=== PATIENT | female | born 1965 | race Caucasian/White ===

== ENCOUNTER → 2017-12-26 07:32 | Outpatient (CLI) | payer OTHER, SELFPAY ==
[2017-12-26 09:19] LABS: Add Manual Diff / Slide Review NO; Basophils Percent Auto 0.7 % (0-2); Eosinophils Percent Auto 2.2 % (2-4); Hematocrit 35.6 % (36-46); Hemoglobin 12.1 g/dL (12.0-16.0); Lymphocytes Percent Auto 31.3 % (25-40); Mean Corpuscular HGB Conc 33.8 % (30-36); Mean Corpuscular Hemoglobin 28.7 PG (26-34); Mean Corpuscular Volume 84.8 fL (80-100); Monocytes Percent Auto 7.3 % (3-14); Neutrophils Absolute Auto 2300 /uL (3000-5900); Neutrophils Percent Auto 58.5 % (50-75); Platelet Count 225 X10^3/uL (150-400); Red Cell Distribution Width 14.1 % (11.6-14.8); White Blood Cell Count 3.9 X10^3/uL (4.5-11.0)
[2017-12-26 09:31] LABS: Hemoglobin A1C% w Est Avg Glu 5.5 % (4.0-6.0)
[2017-12-26 09:35] LABS: Alanine Aminotransferase 74 IU/L (9-52); Albumin 4.5 g/dL (3.5-5.0); Albumin Globulin Ratio 1.4 (1.0-2.8); Alkaline Phosphatase 123 U/L (38-126); Aspartate Aminotransferase 77 IU/L (14-36); BUN Creatinine Ratio 23.3 (6-22); Bilirubin Total 0.6 mg/dL (0.2-1.3); Blood Urea Nitrogen 21 mg/dL (7-17); Calcium 9.7 mg/dL (8.4-10.2); Carbon Dioxide 26 mmol/L (22-32); Chloride 100 mmol/L (98-107); Cholesterol 268 mg/dL (140-199); Estimated Glomerular Filt Rate > 60.0 mL/min (>60); Globulin 3.3 g/dL (1.7-4.1); Glucose 97 mg/dL (70-100); HDL Cholesterol 62 mg/dL (40-60); HEMOLYSIS < 15 (0-50); LDL Cholesterol Calculated 147 mg/dL (<100); Potassium 3.9 mmol/L (3.4-5.1); Sodium 141 mmol/L (137-145); Total Protein 7.8 g/dL (6.3-8.2); Triglycerides 294 mg/dL (35-150)
[2017-12-26 09:41] LABS: Creatinine Urine Random 152.4 mg/dL
[2017-12-26 09:43] LABS: Microalbumi Creatinin Ratio Ur 7.2 ug/mg CR (<30); Microalbumin Urine Random 1.1 mg/dL (0-1.6)
== END ==
PROVIDERS: Family Provider Internal Medicine; PCP Internal Medicine; Visit Provider Internal Medicine
DX: E11.9 Type 2 diabetes mellitus without complications (principal); I10 Essential (primary) hypertension; F32.9 Major depressive disorder, single episode, unspecified; E78.00 Pure hypercholesterolemia, unspecified
CPT/HCPCS: 36415; 80053; 80061; 82043; 82570; 83036; 85025

== ENCOUNTER → 2018-01-13 07:06 | Outpatient (CLI) | payer OTHER, SELFPAY ==
--- NOTE | 2018-01-13 | DI.US.S_ITS ---
PROCEDURE: US ABDOMEN COMPLETE INDICATIONS: ELEVATED TRANSAMINASE, LDH TECHNIQUE: Real-time scanning was performed of the abdominal and retroperitoneal organs, with image documentation. COMPARISON: None. FINDINGS: Liver: Liver is normal in size and homogeneous in echotexture. Gallbladder: Surgically absent. Biliary ducts: Intrahepatic bile ducts are non-dilated. Extrahepatic bile duct caliber measures 7.6 mm. Normal is 6-7 mm or less in diameter, or 10 mm or less post-cholecystectomy. Pancreas: Not well-visualized. Spleen: Spleen is enlarged in size at 14.9 cm and homogeneous in echotexture. Kidneys: Kidneys are normal in size and echotexture. Right kidney measures 12.4 cm long; left kidney measures 12.7 cm long. No hydronephrosis or nephrolithiasis. No solid masses. Aorta: Visualized aorta is normal in caliber at less than 3 cm. Iliacs: Proximal common iliac arteries are normal in caliber at less than 2.5 cm. IVC: Intrahepatic inferior vena cava is patent. Miscellaneous: No free abdominal fluid. IMPRESSION: Sonographic splenomegaly. Dictated by: Lars HALL Interpreted: Adams Apple MD on 01/13/2018 at 8:07 Approved by: Rudy Apple M.D. on 01/13/2018 at 10:48
== END ==
PROVIDERS: Family Provider Internal Medicine; PCP Internal Medicine; Visit Provider Internal Medicine
DX: R74.0 Nonspecific elevation of levels of transaminase and lactic acid dehydrogenase [LDH] (principal); R16.1 Splenomegaly, not elsewhere classified
CPT/HCPCS: 76700

== ENCOUNTER → 2018-03-17 13:11 | Outpatient (CLI) | payer OTHER, SELFPAY ==
--- NOTE | 2018-03-17 | DI.US.S_ITS ---
PROCEDURE: US ABDOMEN COMPLETE INDICATIONS: ELEVATED LDH, TRANSAMINASE TECHNIQUE: Real-time scanning was performed of the abdominal and retroperitoneal organs, with image documentation. COMPARISON: [facility], US, US ABDOMEN COMPLETE, 01/13/2018, 7:30. FINDINGS: Liver: Liver is normal in size and homogeneous in echotexture. There are 3, geographic areas of increased echogenicity noted throughout the right hepatic lobe, largest measuring 5.7 x 6.3 x 4.2 cm which may represent focal fatty infiltration given the sonographic appearance. Liver otherwise appears normal. Gallbladder: Surgically absent. Biliary ducts: Intrahepatic bile ducts are non-dilated. Extrahepatic bile duct caliber measures 5.4 mm. Normal is 6-7 mm or less in diameter, or 10 mm or less post-cholecystectomy. Pancreas: Not well-seen. Spleen: Spleen is normal in size and homogeneous in echotexture. Kidneys: Kidneys are normal in size and echotexture. Right kidney measures 12.0 cm long; left kidney measures 12.0 cm long. No hydronephrosis or nephrolithiasis. No solid masses. Aorta: Visualized aorta is normal in caliber at less than 3 cm. Iliacs: Proximal common iliac arteries are normal in caliber at less than 2.5 cm. IVC: Intrahepatic inferior vena cava is patent. Miscellaneous: No free abdominal fluid. IMPRESSION: 3 areas of geographic areas of increased echogenicity noted throughout the right hepatic lobe with appearance suggesting focal fatty infiltration. Recommend either CT or MR hepatic protocol imaging for further characterization and confirmation. Dictated by: Lars TERRELL Interpreted: Adams Apple MD on 03/17/2018 at 15:17 Approved by: Rudy Apple M.D. on 03/17/2018 at 16:56
== END ==
PROVIDERS: Family Provider Internal Medicine; PCP Internal Medicine; Visit Provider Internal Medicine
DX: R74.0 Nonspecific elevation of levels of transaminase and lactic acid dehydrogenase [LDH] (principal)
CPT/HCPCS: 76700

== ENCOUNTER → 2018-04-18 09:49 | Outpatient (CLI) | payer OTHER, SELFPAY ==
[2018-04-18 11:21] LABS: Add Manual Diff / Slide Review NO; Basophils Percent Auto 0.5 % (0-2); Eosinophils Percent Auto 2.1 % (2-4); Hematocrit 36.4 % (36-46); Hemoglobin 12.4 g/dL (12.0-16.0); Lymphocytes Percent Auto 26.5 % (25-40); Mean Corpuscular HGB Conc 34.2 % (30-36); Mean Corpuscular Hemoglobin 28.3 PG (26-34); Mean Corpuscular Volume 82.9 fL (80-100); Neutrophils Absolute Auto 2900 /uL (3000-5900); Neutrophils Percent Auto 63.9 % (50-75); Platelet Count 231 X10^3/uL (150-400); Red Blood Cell Count 4.39 X10^6/uL (4.0-5.2); Red Cell Distribution Width 14.6 % (11.6-14.8); White Blood Cell Count 4.5 X10^3/uL (4.5-11.0)
[2018-04-18 11:32] LABS: Alanine Aminotransferase 72 IU/L (9-52); Albumin 4.5 g/dL (3.5-5.0); Albumin Globulin Ratio 1.3 (1.0-2.8); Alkaline Phosphatase 132 U/L (38-126); Aspartate Aminotransferase 90 IU/L (14-36); BUN Creatinine Ratio 25.6 (6-22); Bilirubin Total 0.8 mg/dL (0.2-1.3); Blood Urea Nitrogen 23 mg/dL (7-17); Calcium 9.6 mg/dL (8.4-10.2); Carbon Dioxide 28 mmol/L (22-32); Chloride 102 mmol/L (98-107); Cholesterol 271 mg/dL (140-199); Estimated Glomerular Filt Rate > 60.0 mL/min (>60); Globulin 3.5 g/dL (1.7-4.1); Glucose 168 mg/dL (70-100); HDL Cholesterol 58 mg/dL (40-60); HEMOLYSIS < 15 (0-50); LDL Cholesterol Calculated 149 mg/dL (<100); Potassium 4.3 mmol/L (3.4-5.1); Sodium 143 mmol/L (137-145); Triglycerides 321 mg/dL (35-150)
[2018-04-18 11:39] LABS: Hemoglobin A1C% w Est Avg Glu 6.7 % (4.0-6.0)
[2018-04-18 12:13] LABS: Vitamin B12 740 pg/mL (239-931)
[2018-04-18 12:25] LABS: Thyroid Stimulating Hormone 1.42 uIU/mL (0.47-4.68)
[2018-04-18 12:39] LABS: Hep C Virus Ab w/Reflex Quant NEGATIVE s/c (NEGATIVE)
== END ==
PROVIDERS: PCP Internal Medicine; Visit Provider Internal Medicine
DX: E11.9 Type 2 diabetes mellitus without complications (principal); K76.0 Fatty (change of) liver, not elsewhere classified; E78.00 Pure hypercholesterolemia, unspecified
CPT/HCPCS: 36415; 80053; 80061; 82607; 83036; 84443; 85025; 86803

== ENCOUNTER → 2018-04-28 07:09 | Outpatient (CLI) | payer OTHER, SELFPAY ==
[2018-04-28 09:06] LABS: Add Manual Diff / Slide Review NO; Basophils Percent Auto 0.5 % (0-2); Eosinophils Percent Auto 1.5 % (2-4); Hematocrit 36.7 % (36-46); Hemoglobin 12.4 g/dL (12.0-16.0); Lymphocytes Percent Auto 28.6 % (25-40); Mean Corpuscular HGB Conc 33.8 % (30-36); Mean Corpuscular Hemoglobin 28.3 PG (26-34); Mean Corpuscular Volume 83.8 fL (80-100); Monocytes Percent Auto 6.3 % (3-14); Neutrophils Absolute Auto 2900 /uL (3000-5900); Neutrophils Percent Auto 63.1 % (50-75); Platelet Count 245 X10^3/uL (150-400); Red Blood Cell Count 4.37 X10^6/uL (4.0-5.2); Red Cell Distribution Width 14.2 % (11.6-14.8); White Blood Cell Count 4.6 X10^3/uL (4.5-11.0)
[2018-04-28 09:19] LABS: Hemoglobin A1C% w Est Avg Glu 6.6 % (4.0-6.0)
[2018-04-28 09:44] LABS: Alanine Aminotransferase 50 IU/L (9-52); Albumin 4.7 g/dL (3.5-5.0); Albumin Globulin Ratio 1.5 (1.0-2.8); Alkaline Phosphatase 135 U/L (38-126); Aspartate Aminotransferase 50 IU/L (14-36); BUN Creatinine Ratio 31.8 (6-22); Bilirubin Total 0.6 mg/dL (0.2-1.3); Blood Urea Nitrogen 35 mg/dL (7-17); Calcium 9.9 mg/dL (8.4-10.2); Carbon Dioxide 27 mmol/L (22-32); Chloride 100 mmol/L (98-107); Cholesterol 266 mg/dL (140-199); Estimated Glomerular Filt Rate 51.8 mL/min (>60); Globulin 3.1 g/dL (1.7-4.1); Glucose 117 mg/dL (70-100); HDL Cholesterol 53 mg/dL (40-60); HEMOLYSIS < 15 (0-50); LDL Cholesterol Calculated 146 mg/dL (<100); Sodium 142 mmol/L (137-145); Total Protein 7.8 g/dL (6.3-8.2); Triglycerides 337 mg/dL (35-150)
[2018-04-28 10:07] LABS: Thyroid Stimulating Hormone 2.65 uIU/mL (0.47-4.68)
[2018-04-28 10:19] LABS: Hep C Virus Ab w/Reflex Quant NEGATIVE s/c (NEGATIVE)
[2018-04-28 12:04] LABS: Vitamin B12 584 pg/mL (239-931)
== END ==
PROVIDERS: Family Provider Internal Medicine; PCP Internal Medicine; Visit Provider Internal Medicine
DX: E11.9 Type 2 diabetes mellitus without complications (principal); K76.0 Fatty (change of) liver, not elsewhere classified
CPT/HCPCS: 36415; 80053; 80061; 82607; 83036; 84443; 85025; 86803

== ENCOUNTER → 2018-08-14 17:10 | Outpatient (REF) | payer OTHER, SELFPAY ==
[2018-08-15 09:40] LABS: Urine Amphetamines Negative (Negative); Urine Barbiturates Negative (Negative); Urine Benzodiazepines Positive (Negative); Urine Cocaine Negative (Negative); Urine MDMA Negative (Negative); Urine Methadone Negative (Negative); Urine Methamphetamines Negative (Negative); Urine Morphine/Opi cutoff 2000 Negative (Negative); Urine Oxycodone Negative (Negative); Urine Phencyclidine Negative (Negative); Urine Tetrahydrocannabinol Negative (Negative); Urine Tricyclic Antidepressant Positive (Negative)
== END ==
LOC: LAB 17:10
PROVIDERS: Family Provider Internal Medicine; PCP Internal Medicine; Visit Provider Family Medicine Sleep Medicine
DX: G47.33 Obstructive sleep apnea (adult) (pediatric) (principal); G47.19 Other hypersomnia
CPT/HCPCS: 80305

== ENCOUNTER → 2018-10-23 18:04 | Outpatient (CLI) | payer OTHER, SELFPAY ==
--- NOTE | 2018-10-23 18:10 | DI.MRI.S_ITS ---
PROCEDURE: MR LUMBAR SPINE WO CON INDICATIONS: Post laminectomy syndrome TECHNIQUE: Noncontrast sagittal T1 spin echo and T2 fast echo, sagittal STIR, axial T1 and T2 fast spin echo through the lumbar spine. In cases with scoliosis, additional coronal T2 fast spin echo may be performed. COMPARISON: [facility] [place], [place], XR LUMBAR SPINE 2 OR 3 VIEWS, 09/18/2018, 16:04. FINDINGS: Image quality: Excellent. Alignment and Curvature: There is grade 1 retrolisthesis of L1 on L2 and L2 on L3. Minimal retrolisthesis of L4 on L5 is also noted. There is mild to moderate levoscoliosis centered at L2-3 level. Bone Marrow: Marrow is of normal overall signal. No acute vertebral body compression fractures. Decreased intervertebral disc space, degenerative endplate changes and desiccation signals are noted throughout lumbar spine. There is suggestion of prior L3-4 laminectomy. Spinal Cord: Conus medullaris terminates at the T12-L1 level. Visualized cord demonstrates normal signal and size. Paraspinous Soft Tissues: No paravertebral masses. Postsurgical changes in lower back soft tissue are seen. L1-L2: Diffuse disc bulge, decreased intervertebral disc space and bilateral facet arthrosis is seen. No significant central canal stenosis. Bilateral neural foramina narrowing is noted worse on the right side. Bulging disc likely contacting exiting right L1 nerve root. L2-L3: There is near-complete loss of intervertebral disc space. Broad based, more left-sided disc herniation and bilateral facet arthrosis is seen causing mild central canal stenosis and mild to moderate bilateral neuroforamina narrowing. L3-L4: Broad-based disc bulge and superimposed central disc herniation and bilateral facet arthrosis is seen. Near-complete loss of intervertebral disc space is also noted. There is prior laminectomy at this level. No central canal stenosis. Left worse than right bilateral neuroforamina narrowing is seen. L4-L5: Broad-based disc bulge and bilateral facet arthrosis is seen causing moderate central canal stenosis and right worse than left bilateral neuroforaminal narrowing. Bulging disc likely contacting right L4 nerve root. L5-S1: Broad-based disc bulge and bilateral facet arthrosis is seen with mild central canal stenosis and left worse than right bilateral neuroforaminal narrowing. Bulging disc likely contacting bilateral exiting L5 nerve roots. IMPRESSION: 1. Prior posterior decompression laminectomy at L3-4 level with postsurgical changes. No marrow edema. No compression fracture. Likely degenerative spondylolisthesis at L1-2, L2-3 and L4-5 levels as above. 2. Broad based disc bulge and bilateral facet arthrosis throughout lumbar spine causing [id number] central canal stenosis and bilateral neuroforaminal narrowing most prominent at L4-5 level as described above. 3. No gross paraspinous soft tissue abnormality. Dictated by: Santy Wallace M.D. on 10/24/2018 at 11:01 Approved by: Santy Wallace M.D. on 10/24/2018 at 11:17
== END ==
PROVIDERS: Family Provider Internal Medicine; PCP Internal Medicine; Visit Provider Physical Medicine & Rehabilitation
DX: M96.1 Postlaminectomy syndrome, not elsewhere classified (principal); M51.26 Other intervertebral disc displacement, lumbar region; M51.27 Other intervertebral disc displacement, lumbosacral region; M47.816 Spondylosis without myelopathy or radiculopathy, lumbar region; M47.817 Spondylosis without myelopathy or radiculopathy, lumbosacral region; M48.061 Spinal stenosis, lumbar region without neurogenic claudication; M48.07 Spinal stenosis, lumbosacral region; E11.9 Type 2 diabetes mellitus without complications; G89.4 Chronic pain syndrome; Z79.4 Long term (current) use of insulin
CPT/HCPCS: 72148

== ENCOUNTER → 2018-11-28 16:26 | Outpatient (CLI) | payer OTHER, SELFPAY ==
--- NOTE | 2018-11-28 16:30 | DI.RAD.S_ITS ---
PROCEDURE: XR RIBS RT MIN 3V W CXR 1V INDICATIONS: right sided rib pain TECHNIQUE: 2 views of the right ribs were acquired, along with a single view chest. COMPARISON: None. FINDINGS: Surgical changes and devices: None. Bones and chest wall: No fractures or dislocations. No suspicious bony lesions. Moderate caudal joint space loss in the right glenohumeral joint. Overlying soft tissues appear unremarkable. Lungs and pleura: No pleural effusions or pneumothorax. Lungs appear clear. Mediastinum: Mediastinal contours appear normal. Heart size is normal. IMPRESSION: 1. No displaced rib fractures. 2. No radiographic evidence of underlying chest trauma. 3. Moderate degenerative change in the right glenohumeral joint. Dictated by: Shanthi Ernst M.D. on 11/28/2018 at 17:06 Approved by: Shanthi Ernst M.D. on 11/28/2018 at 17:07
== END ==
PROVIDERS: Family Provider Internal Medicine; PCP Internal Medicine; Visit Provider Physician Assistant
DX: R07.81 Pleurodynia (principal); M19.011 Primary osteoarthritis, right shoulder
CPT/HCPCS: 71101

== ENCOUNTER → 2018-12-05 11:50 | Outpatient (ROUT) | payer OTHER, SELFPAY ==
[2018-12-05 12:08] LABS: Urine Tricyclic Antidepressant Positive (Negative)
[2018-12-05 12:09] LABS: Urine Amphetamines Negative (Negative); Urine Barbiturates Negative (Negative); Urine Benzodiazepines Positive (Negative); Urine Cocaine Negative (Negative); Urine MDMA Negative (Negative); Urine Methadone Negative (Negative); Urine Methamphetamines Negative (Negative); Urine Morphine/Opi cutoff 2000 Negative (Negative); Urine Oxycodone Negative (Negative); Urine Phencyclidine Negative (Negative); Urine Tetrahydrocannabinol Positive (Negative)
== END ==
PROVIDERS: Family Provider Internal Medicine; PCP Internal Medicine; Visit Provider Family Medicine Sleep Medicine
DX: G47.10 Hypersomnia, unspecified (principal); G47.33 Obstructive sleep apnea (adult) (pediatric)
CPT/HCPCS: 80305

== ENCOUNTER → 2018-12-24 08:15 | Outpatient (CLI) | payer OTHER, SELFPAY ==
[2018-12-24 09:09] LABS: Add Manual Diff / Slide Review NO; Basophils Absolute Auto 0 /uL (0-100); Basophils Percent Auto 0.4 % (0-2); Eosinophils Absolute Auto 100 /uL (0-450); Eosinophils Percent Auto 1.7 % (2-4); Hemoglobin 12.3 g/dL (12.0-16.0); Lymphocytes Absolute Auto 1300 /uL (1100-4500); Lymphocytes Percent Auto 28.1 % (25-40); Mean Corpuscular HGB Conc 33.2 % (30-36); Mean Corpuscular Hemoglobin 27.4 PG (26-34); Mean Corpuscular Volume 82.5 fL (80-100); Monocytes Absolute Auto 300 /uL (0-900); Monocytes Percent Auto 7.3 % (3-14); Neutrophils Absolute Auto 2900 /uL (1500-7000); Neutrophils Percent Auto 62.5 % (50-75); Platelet Count 208 X10^3/uL (150-400); Red Blood Cell Count 4.49 X10^6/uL (4.0-5.2); Red Cell Distribution Width 15.1 % (11.6-14.8); White Blood Cell Count 4.6 X10^3/uL (4.5-11.0)
[2018-12-24 09:24] LABS: Hemoglobin A1C% w Est Avg Glu 6.2 % (4.0-6.0)
[2018-12-24 09:58] LABS: Alanine Aminotransferase 120 IU/L (9-52); Albumin 4.6 g/dL (3.5-5.0); Albumin Globulin Ratio 1.4 (1.0-2.8); Alkaline Phosphatase 164 U/L (38-126); Aspartate Aminotransferase 139 IU/L (14-36); BUN Creatinine Ratio 17.5 (6-22); Bilirubin Total 0.6 mg/dL (0.2-1.3); Blood Urea Nitrogen 28 mg/dL (7-17); Calcium 10.1 mg/dL (8.4-10.2); Carbon Dioxide 28 mmol/L (22-32); Chloride 101 mmol/L (98-107); Estimated Glomerular Filt Rate 33.5 mL/min (>60); Globulin 3.2 g/dL (1.7-4.1); Glucose 104 mg/dL (70-100); HEMOLYSIS < 15 (0-50); Potassium 4.5 mmol/L (3.4-5.1); Sodium 140 mmol/L (137-145); Total Protein 7.8 g/dL (6.3-8.2)
== END ==
PROVIDERS: PCP Internal Medicine; Visit Provider Internal Medicine
DX: E11.9 Type 2 diabetes mellitus without complications (principal); K76.0 Fatty (change of) liver, not elsewhere classified; I10 Essential (primary) hypertension
CPT/HCPCS: 36415; 80053; 83036; 85025

== ENCOUNTER → 2019-01-23 14:42 | Outpatient (CLI) | payer OTHER, SELFPAY ==
[2019-01-23 16:10] LABS: BUN Creatinine Ratio 18.2 (6-22); Blood Urea Nitrogen 20 mg/dL (7-17); Calcium 10.6 mg/dL (8.4-10.2); Carbon Dioxide 29 mmol/L (22-32); Chloride 100 mmol/L (98-107); Creatinine Urine Random 83.4 mg/dL; Estimated Glomerular Filt Rate 51.6 mL/min (>60); Glucose 85 mg/dL (70-100); HEMOLYSIS < 15 (0-50); Potassium 5.5 mmol/L (3.4-5.1); Sodium 141 mmol/L (137-145)
[2019-01-23 16:14] LABS: Microalbumi Creatinin Ratio Ur 41.9 ug/mg CR (<30); Microalbumin Urine Random 3.5 mg/dL (0-1.6)
== END ==
PROVIDERS: PCP Internal Medicine; Visit Provider Internal Medicine
DX: N18.9 Chronic kidney disease, unspecified (principal)
CPT/HCPCS: 36415; 80048; 82043; 82570

== ENCOUNTER → 2019-01-26 18:16 | Outpatient (CLI) | payer OTHER, SELFPAY ==
--- NOTE | 2019-01-26 18:19 | DI.RAD.S_ITS ---
PROCEDURE: XR SHOULDER RT MIN 2V INDICATIONS: Fall, pain with movement of shoulder TECHNIQUE: 3 views of the shoulder were acquired. COMPARISON: None. FINDINGS: Bones: Slight cortical offset appearance of the humeral head. No suspicious bony lesions. Visualized ribs appear intact. Soft tissues: No suspicious soft tissue calcifications. IMPRESSION: Slight cortical offset appearance of the right humeral head appearing consistent with fracture. Dictated by: Christina Kaye M.D. on 01/26/2019 at 18:48 Approved by: Christina Kaye M.D. on 01/26/2019 at 18:51
== END ==
PROVIDERS: PCP Internal Medicine; Visit Provider Physician Assistant
DX: M25.511 Pain in right shoulder (principal)
CPT/HCPCS: 73030

== ENCOUNTER → 2019-03-30 11:04 | Outpatient (CLI) | payer OTHER, SELFPAY ==
[2019-03-30 12:23] LABS: Alanine Aminotransferase 59 IU/L (9-52); Albumin 4.4 g/dL (3.5-5.0); Albumin Globulin Ratio 1.5 (1.0-2.8); Alkaline Phosphatase 116 U/L (38-126); Aspartate Aminotransferase 87 IU/L (14-36); BUN Creatinine Ratio 22.2 (6-22); Bilirubin Total 0.6 mg/dL (0.2-1.3); Blood Urea Nitrogen 20 mg/dL (7-17); Calcium 9.9 mg/dL (8.4-10.2); Carbon Dioxide 28 mmol/L (22-32); Chloride 102 mmol/L (98-107); Estimated Glomerular Filt Rate > 60.0 mL/min (>60); Glucose 177 mg/dL (70-100); HEMOLYSIS < 15 (0-50); Potassium 4.4 mmol/L (3.4-5.1); Sodium 140 mmol/L (137-145); Total Protein 7.4 g/dL (6.3-8.2)
== END ==
PROVIDERS: PCP Internal Medicine; Visit Provider Internal Medicine
DX: I10 Essential (primary) hypertension (principal); E87.5 Hyperkalemia; N18.9 Chronic kidney disease, unspecified; K76.0 Fatty (change of) liver, not elsewhere classified
CPT/HCPCS: 36415; 80053

== ENCOUNTER 2019-03-31 11:15 | Outpatient (RCR) | payer OTHER, SELFPAY ==
--- NOTE | 2019-02-10 17:00 | PT.OPPOC ---
Current Diagnoses Pain in right elbow (02/10/19) Muscle weakness (generalized) (02/10/19) Other nondisplaced fracture of upper end of right humerus, initial encounter for closed fracture (02/10/19) Provider Visit Care Team Role Provider Type Neftaly Tomlinson MD Primary Care Provider Physician Specialty: Internal Medicine Address: [address] [place] [address], [id number] Email: Juan Daniel Velazquez MD Attending Provider Physician Specialty: Orthopedic Surgery Address: [address] [place] [address], [id number] Email: [email or web address] Plan Of Care PT-OP-T Assessment and Plan Start: 02/10/19 08:18 Freq: Status: Active Protocol: Document 02/10/19 09:52 LRN (Rec: 02/10/19 12:45 LRN [id number]) Physical Therapy Assessment Rehab Potential Rehabilitation Potential Excellent Evaluation Complexity Number of Personal Factors/Comorbidities 3 or More Number of Body Systems Impaired 4 or More Clinical Presentation at Evaluation Unstable Impairments Impairments Activity Tolerance Edema Functional Activities Pain Soft Tissue Mobility Strength Goals Three Impairment Decreased R shoulder strength & functional ability Short Term Goal (STG) Improve R shoulder strength to 3/5 with ability to dress self with minimal difficulty and pain. STG Duration 03/31/19 [employer] Goal (LTG) Improve R shoulder strength to 4+/5 with pt able to return to pool exercise class. LTG Duration 04/14/19 Two Impairment Decreased R shoulder AROM/PROM Short Term Goal (STG) Per protocol: PROM to R shoulder with progression and tolerance to AROM on week 5. STG Duration 03/03/19 [facility] Goal (LTG) Pt will demonstrate full R shoulder AROM/PROM with ability lightly brush her hair and no difficulty feed self. LTG Duration 03/31/19 One Impairment Lacks independent self care program [facility] Goal (LTG) Pt will be independent with a self care HEP. LTG Duration 04/14/19 Assessment Summary Assessment Pt presents to therapy with no sling on her R arm that she apparently has not been wearing. She has been going to the pool daily and demonstrated the AROM program she was doing on her own in the local swimming pool, moving her arms in and out in a breast stroke type of pattern. Her R shoulder PROM is fairly good (painfree) and surprisingly good for painfree AROM. The pt doesn't appear to be following the protocol provided by her physician. She has been moving her R arm (in ER and AB) in the water with her arms dangling down because she states it isn't painful. Pt was instructed in the protocol and is expected to follow the timeline more closely, although I suspect she will have to be monitored closely since she is having very little pain. The pt is choosing to participate in mostly aquatic therapy, but will be seen in the clinic for follow rechecks on her progress towards FROM and return of strength to prior function. The pt will benefit from skilled physical therapy to progress her R shoulder ROM and strength towards return to prior level of function with very little pain. Physical Therapy Plan Frequency and Duration Frequency of Treatment 2x/Week Plan of Care Start Date 02/10/19 Plan of Care End Date 04/14/19 Therapeutic Interventions Therapeutic Interventions Home Exercise Program Joint Mobilizations Manual Therapy Patient/Caregiver Education Self-Care/Home Management Soft Tissue Mobilization Taping Therapeutic Exercises Modalities Cold Pack/Ice Massage Electric Stimulation Hot Packs Infrared Therapy Ultrasound Next Visit Focus/Plan Next Note Type Treatment Note Next Visit Plan Continue per protocol for Acute Unstable Shoulder Fracture Nonoperative rehabilitation program. Start Aquatic therapy with land based therapy every other weeks as able. Pt R shoulder to be assessed for FROM on land and progressed to strengthening when appropriate per protocol. Obtain copy of X-ray report from . Plan of Care Dates Plan of Care Start Date 02/10/19 Plan of Care End Date 04/14/19 Please Sign and Return: I have reviewed this Plan of Care and certify that the skilled therapy services above are required to meet the patient?s needs. Physician Signature Date Printed Name and Credentials Clinical Instructor Signature Printed Name and Credentials
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
== END 2019-06-05 11:14 ==
LOC: PHYS 11:15
PROVIDERS: PCP Internal Medicine; Visit Provider Orthopaedic Surgery
DX: S42.294A Other nondisplaced fracture of upper end of right humerus, initial encounter for closed fracture (principal); M62.81 Muscle weakness (generalized); M25.521 Pain in right elbow
CPT/HCPCS: 97010; 97110; 97113; 97140; 97163

== ENCOUNTER → 2019-04-14 09:15 | Outpatient (CLI) | payer OTHER, SELFPAY ==
[2019-04-14 09:50] LABS: Urine Amphetamines Negative (Negative); Urine Barbiturates Negative (Negative); Urine Benzodiazepines Positive (Negative); Urine Cocaine Negative (Negative); Urine MDMA Negative (Negative); Urine Methadone Negative (Negative); Urine Methamphetamines Negative (Negative); Urine Morphine/Opi cutoff 2000 Negative (Negative); Urine Oxycodone Negative (Negative); Urine Phencyclidine Negative (Negative); Urine Tetrahydrocannabinol Positive (Negative); Urine Tricyclic Antidepressant Positive (Negative)
== END ==
PROVIDERS: Family Provider Internal Medicine; PCP Internal Medicine; Visit Provider Psychiatry & Neurology Psychiatry
DX: Z79.899 Other long term (current) drug therapy (principal)
CPT/HCPCS: 80305; 80307

== ENCOUNTER 2019-04-17 01:59 | Observation (INO) | payer OTHER, SELFPAY ==
[2019-04-17] VITALS (17 sets, daily range): BP systolic 76–180; BP diastolic 54–102; PULSE 64–80; RESP 15–21; TEMP 35.7–37.4; O2SAT 95–100; BMI 30.8
--- NOTE | 2019-04-17 02:23 | ED.HA ---
HPI - Headache General Chief Complaint: Headache Stated Complaint: Burning pain on face/ear/neck Time Seen by Provider: 04/17/19 02:00 Mode of arrival: Family Vehicle Limitations: language barrier History of Present Illness HPI Narrative: 53-year-old female nonsmoker with occasional THC and alcohol use and history of diabetes and hypertension presents with her in the chief complaint of 1 hour of intense burning on the right side of her face from her ear to the ramus of her jaw. It is worse when you press. She denies any redness or warmth. She has had no fever or chills. She went to bed feeling fine and awoke with this pain, stating she recently had dental work in the past week to repair crowns. states she was briefly difficult to arouse and seemed like she might have been a bit sweaty, she then got herself into bed and awoke this pain. She states she felt totally fine and normal prior to going to bed. She denies any change in diet or medications. She has no rash. She did have chickenpox as a child. SHe used a Q tip on her R ear after the pain started. She is very clear this is not a headache but is in fact right-sided face pain. She denies other neurologic symptoms such as numbness, weakness or tingling. She denies any shortness of breath, chest pain or fatigue. She denies neurologic symptoms such as blurred vision, trouble with speech or other. Complaint: other Onset (ago): hour(s) Onset description: gradual Location: right Severity: moderate Quality: sharp Relieving factors: rest Exacerbating factors: other (palpation) Context: occurred at rest Associated symptoms: diaphoresis Treatments prior to arrival: acetaminophen Related Data Home Medications Medication Instructions Recorded Confirmed [KETAMINE] 100 mg PO #0 09/19/17 12/24/18 buprenorphine HCl 8 mg SUBLINGUAL TID #0 09/19/17 12/24/18 cholecalciferol (vitamin D3) 2,000 unit PO QDAY #0 09/19/17 12/24/18 [Vitamin D3] dicyclomine 20 mg PO QIDP PRN #0 09/19/17 12/24/18 fenofibrate 160 mg PO QDAY #0 09/19/17 12/24/18 insulin aspart U-100 [Novolog 10 - 25 unit SQ TIDAC #0 09/19/17 12/24/18 U-100 Insulin aspart] insulin glargine [Lantus U-100 30 unit SQ QPM #0 09/19/17 12/24/18 Insulin] insulin glargine [Lantus U-100 40 unit SQ QDAY #0 09/19/17 12/24/18 Insulin] lisinopril 10 mg PO QDAY #0 09/19/17 12/24/18 lorazepam 2 mg PO #0 09/19/17 12/24/18 metformin [Glucophage XR] 1,000 mg PO BID #0 09/19/17 12/24/18 metoclopramide HCl [Reglan] 5 - 10 mg PO PRN PRN #0 09/19/17 12/24/18 metoprolol succinate [Toprol XL] 100 mg PO QDAY #0 09/19/17 12/24/18 pravastatin 20 mg PO QDAY #0 09/19/17 12/24/18 quetiapine [Seroquel] 100 mg PO PRN #0 09/19/17 12/24/18 quetiapine [Seroquel] 800 mg PO HS #0 09/19/17 12/24/18 valacyclovir QID #0 09/19/17 12/24/18 vitamin B complex [B 1 tab PO QDAY #0 09/19/17 12/24/18 Complex-Vitamin B12] fluoxetine 20 mg capsule 20 mg PO DAILY 10/10/18 12/24/18 Previous Rx's Medication Instructions Recorded celecoxib 200 mg capsule 200 mg PO DAILY #30 cap 10/10/18 methylphenidate HCl 10 mg tablet 10 mg PO BID #60 tab 12/24/18 Allergies Allergy/AdvReac Type Severity Reaction Status Date / Time cat dander Allergy Hives Verified 12/24/18 14:40 house dust Allergy Itchy Verified 12/24/18 14:40 throat No Known Allergies Allergy Uncoded 12/24/18 14:40 Review of Systems Constitutional Constitutional: Denies chills, Reports excessive sweating, Denies fatigue, Denies fever(s), Denies frequent falls, Denies lethargy and Denies weakness Eyes Eyes: Denies change in vision, Denies eye discharge, Denies irritation and Denies loss of vision ENT Ears, Nose, Mouth, and Throat: Denies change in voice, Denies dizziness, Denies neck pain, Denies sore throat and Denies throat swelling Cardiovascular Cardiovascular: Denies chest pain, Denies irregular heart rhythm, Denies lightheadedness, Denies palpitations, Denies dyspnea, Denies dyspnea on exertion and Denies orthopnea Respiratory Respiratory: Denies cough, Denies dyspnea, Denies dyspnea on exertion and Denies wheezing Gastrointestinal Gastrointestinal: Denies abdominal pain, Denies change in bowel habits, Denies diarrhea, Denies nausea and Denies vomiting Genitourinary Genitourinary: Denies hematuria, Denies flank pain, Denies urinary incontinence and Denies urinary urgency Musculoskeletal Musculoskeletal: Denies back pain, Denies muscle weakness, Denies neck pain, Denies numbness and Denies tingling Integumentary/Breasts Skin/Breast: Denies pruritus, Denies erythema, Denies rash and Denies wounds Neurologic Neurologic: Denies behavioral changes, Denies confusion, Denies dizziness, Denies frequent falls, Denies loss of vision, Denies numbness, Denies tingling and Denies weakness Psychiatric Psychiatric: Denies anxiety, Denies behavioral changes, Denies confusion, Denies depression, Denies homicidal ideation and Denies suicidal ideation Endocrine Endocrine: Reports excessive sweating, Denies fatigue, Denies flushing and Denies palpitations Hematologic/Lymphatic Hematologic/Lymphatic: Denies easy bruising Allergic/Immunologic Allergic/Immunologic: Denies urticaria, Denies throat swelling and Denies wheezing [facility] Medical History (Updated 04/17/19 @ 06:30 by MOY Childress) Anxiety (Chronic) Arthritis (Acute) Bipolar 1 disorder (Chronic) History of pancreatitis (Resolved) History of pulmonary embolism (Acute) Hypercholesterolemia with hypertriglyceridemia (Chronic) Hypersomnia (Chronic) Hypertension (Chronic) Major depressive disorder (Chronic) Neuropathy, diabetic (Acute) Nonalcoholic steatohepatitis (HERRING) (Chronic) Obesity (Chronic) Obstructive sleep apnea of adult (Chronic) Renal insufficiency (Acute) Snoring (Inactive) Type 2 diabetes mellitus (Chronic) Social History marital status: details: to Arnie household members: spouse lives independently: Yes caregiver/support person: No occupational status: unemployed Smoking Status: Never smoker alcohol intake: current substance use type: does not use Social History marital status: details: rasheed Gaitan household members: spouse lives independently: Yes caregiver/support person: No occupational status: unemployed Smoking Status: Never smoker alcohol intake: current substance use type: does not use Exam Narrative Exam Narrative: GENERAL: [53] year old patient appears stated age. Well-nourished, well-developed patient, in mild distress. At times a bit sluggish to respond but does so accurately HEAD: Atraumatic. Normocephalic. EYES: Pupils equal round and reactive. Extraocular motions intact. No scleral icterus. No injection or drainage. ENT: Dry mucous membranes. Right external canal has a small abrasion with minimal fresh blood, no significant swelling. Nose without bleeding, purulent drainage. Throat without erythema, tonsillar hypertrophy or exudate. Airway patent. NECK: Trachea midline. Non tender CARDIOVASCULAR: Regular rate and rhythm without murmurs, gallops, or rubs. RESPIRATORY: Clear to auscultation. Breath sounds equal bilaterally. No wheezes, rales, or rhonchi. GASTROINTESTINAL: Abdomen soft, non-tender, nondistended. EXTREMITIES: No edema or joint tenderness. BACK: Nontender without deformity or crepitance. No flank tenderness. NEURO: AOx3. SKIN: No rash or erythema of visible areas no erythema, swelling. Initial Vital Signs Initial Vital Signs: Vital Signs Temperature 98.5 F 04/17/19 02:06 Pulse Rate 80 04/17/19 02:06 Respiratory Rate 16 04/17/19 02:06 Blood Pressure 103/68 04/17/19 02:06 Pulse Oximetry 100 04/17/19 02:06 Course Orders Ordered: ED Orders 04/17/19 02:16 EKG-12 Lead Stat 04/17/19 02:22 Basic Metabolic Panel Stat C-Reactive Protein Quant Stat Complete Blood Count AUTO DIFF Stat Erythrocyte Sedimentation Rate Stat Troponin & CK Cardiac Panel Stat 04/17/19 04:31 Basic Metabolic Panel Stat Lactate (Lactic Acid) Stat Troponin I Stat Acetaminophen (Tylenol) 650 mg PO Q6HR PRN PRN Reason: As Needed for Fever/Mild Pain Dextrose (D50w) 25 gm IV PRN PRN PRN Reason: Hypoglycemia Heparin Sodium (Porcine) (Heparin) 5,000 unit SUBCUT BID YARI Sodium Chloride (Normal Saline 0.9%) 1,000 mls @ 125 mls/hr IV CONT YARI Ondansetron HCl (Zofran) 4 mg IV Q8HR PRN PRN Reason: Nausea And Vomiting Discontinued Medications Sodium Chloride (Normal Saline 0.9%) 1,000 mls @ 1,000 mls/hr IV BOLUS ONE Stop: 04/17/19 04:24 Last Infusion: 04/17/19 04:40 Dose: 0 mls/hr Documented by: Admin: 04/17/19 03:38 Dose: 1,000 mls/hr Documented by: LUCAS Sodium Chloride (Normal Saline 0.9%) 1,000 mls @ 1,000 mls/hr IV BOLUS ONE Stop: 04/17/19 05:38 Last Infusion: 04/17/19 05:41 Dose: 0 mls/hr Documented by: Admin: 04/17/19 04:40 Dose: 1,000 mls/hr Documented by: LESLIE Insulin Glargine (Lantus Solostar (Pen)) 40 unit SUBCUT 0800 [facility] Ketorolac Tromethamine (Toradol) 15 mg IV NOW ONE Stop: 04/17/19 03:26 Last Admin: 04/17/19 03:39 Dose: 15 mg Documented by: LUCAS Reevaluation(s) Reevaluation #1: Patient found to have a bump in creatinine of 1.6, urine specific gravity is 10 30 and blood pressure in the mid 80s with orthostatics. IV fluids and Toradol ordered Vital Signs Vital signs: Vital Signs - 8 hr 04/17/19 02:06 04/17/19 03:16 04/17/19 04:05 Temperature 98.5 F Pulse Rate 80 Pulse Rate [Orthostatic Lying] 67 Pulse Rate [Orthostatic Sitting] 71 Pulse Rate [Orthostatic Standing] 77 Respiratory Rate 16 Blood Pressure 103/68 Blood Pressure [Left Arm] 79/55 L Blood Pressure [Orthostatic Lying] 76/54 L Blood Pressure [Orthostatic Sitting] 84/59 L Blood Pressure [Orthostatic Standing] 84/60 L Pulse Oximetry 100 04/17/19 04:44 04/17/19 05:02 Temperature Pulse Rate Pulse Rate [Orthostatic Lying] Pulse Rate [Orthostatic Sitting] Pulse Rate [Orthostatic Standing] Respiratory Rate Blood Pressure Blood Pressure [Left Arm] 84/54 L 94/61 Blood Pressure [Orthostatic Lying] Blood Pressure [Orthostatic Sitting] Blood Pressure [Orthostatic Standing] Pulse Oximetry MDM - Headache Lab Data Result diagrams: 04/17/19 02:22 04/17/19 04:31 Labs: Lab Results 04/17/19 04/17/19 04/17/19 Range/Units 02:22 02:22 04:31 WBC 6.2 (4.5-11.0) X10^3/uL RBC 4.33 (4.0-5.2) X10^6/uL Hgb 12.0 (12.0-16.0) g/dL Hct 35.8 L (36-46) % MCV 82.8 (80-100) fL MCH 27.7 (26-34) PG MCHC 33.5 (30-36) % RDW 14.6 (11.6-14.8) % Plt Count 238 (150-400) X10^3/uL Neut % (Auto) 70.5 (50-75) % Lymph % (Auto) 22.5 L (25-40) % [place] % (Auto) 5.9 (3-14) % Eos % (Auto) 0.7 L (2-4) % Baso % (Auto) 0.4 (0-2) % Neut # (Auto) 4400 (7397-9493) /uL Lymph # (Auto) 1400 (2529-4447) /uL [place] # (Auto) 400 (0-900) /uL Eos # (Auto) 0 (0-450) /uL Baso # (Auto) 0 (0-100) /uL ESR 43 H (0-20) MM/HR Sodium 138 140 (137-145) mmol/L Potassium 4.5 4.1 (3.4-5.1) mmol/L Chloride 98 103 (98-107) mmol/L Carbon Dioxide 27 25 (22-32) mmol/L BUN 40 H 39 H (7-17) mg/dL Creatinine 1.60 H 1.60 H (0.52-1.04) mg/dL Estimated GFR 33.5 L 33.5 L (>60) mL/min BUN/Creatinine Ratio 25.0 H 24.4 H (6-22) Glucose 158 H 110 H (70-100) mg/dL Lactate (0.7-2.1) mmol/L Calcium 9.9 9.2 (8.4-10.2) mg/dL Total Creatine Kinase 149 H (30-135) U/L CK-MB (CK-2) 1.69 (<2.37) ng/mL CK-MB (CK-2) Rel Index 1.1 L (1.5-5.0) % Troponin I < 0.012 < 0.012 (0.01-0.034) ng/mL C-Reactive Protein 0.7 (<1.0) mg/dL 04/17/19 Range/Units 04:31 WBC (4.5-11.0) X10^3/uL RBC (4.0-5.2) X10^6/uL Hgb (12.0-16.0) g/dL Hct (36-46) % MCV (80-100) fL MCH (26-34) PG MCHC (30-36) % RDW (11.6-14.8) % Plt Count (150-400) X10^3/uL Neut % (Auto) (50-75) % Lymph % (Auto) (25-40) % [place] % (Auto) (3-14) % Eos % (Auto) (2-4) % Baso % (Auto) (0-2) % Neut # (Auto) (3861-0041) /uL Lymph # (Auto) (5423-0645) /uL [place] # (Auto) (0-900) /uL Eos # (Auto) (0-450) /uL Baso # (Auto) (0-100) /uL ESR (0-20) MM/HR Sodium (137-145) mmol/L Potassium (3.4-5.1) mmol/L Chloride (98-107) mmol/L Carbon Dioxide (22-32) mmol/L BUN (7-17) mg/dL Creatinine (0.52-1.04) mg/dL Estimated GFR (>60) mL/min BUN/Creatinine Ratio (6-22) Glucose (70-100) mg/dL Lactate 1.5 (0.7-2.1) mmol/L Calcium (8.4-10.2) mg/dL Total Creatine Kinase (30-135) U/L CK-MB (CK-2) (<2.37) ng/mL CK-MB (CK-2) Rel Index (1.5-5.0) % Troponin I (0.01-0.034) ng/mL C-Reactive Protein (<1.0) mg/dL MDM Narrative Medical decision making narrative: No obvious source of right-sided facial pain which is largely positional. No evidence of shingles such as obvious rash, no Hernandez sign. No intraoral swelling but 0 right-sided pain and the aftermath of recent dental evaluation, the temporal relationship cannot be ignored. Inflammatory markers are elevated but there is no pain over temporal artery, giant cell arteritis considered but thought less likely. Patient did started new diuretic about a week ago, and has had dental surgery raising the question of dehydration contributing to her acute kidney injury and persistently low blood pressure. How this relates to the right-sided facial pain is unclear at this point Discharge Plan Departure Patient Disposition: Admitted as Observation Clinical Impression: Acute kidney injury, Acute dehydration Discharge Date/Time: 04/17/19 06:12 Referrals: Neftaly Tomlinson MD [Primary Care Provider] - Admit Date/Time: 04/17/19 05:36 Admit Provider: April Ramsey
[2019-04-17 02:39] LABS: Add Manual Diff / Slide Review NO; Basophils Absolute Auto 0 /uL (0-100); Basophils Percent Auto 0.4 % (0-2); Eosinophils Absolute Auto 0 /uL (0-450); Eosinophils Percent Auto 0.7 % (2-4); Hematocrit 35.8 % (36-46); Lymphocytes Absolute Auto 1400 /uL (1100-4500); Lymphocytes Percent Auto 22.5 % (25-40); Mean Corpuscular HGB Conc 33.5 % (30-36); Mean Corpuscular Hemoglobin 27.7 PG (26-34); Mean Corpuscular Volume 82.8 fL (80-100); Monocytes Absolute Auto 400 /uL (0-900); Monocytes Percent Auto 5.9 % (3-14); Neutrophils Absolute Auto 4400 /uL (1500-7000); Neutrophils Percent Auto 70.5 % (50-75); Platelet Count 238 X10^3/uL (150-400); Red Blood Cell Count 4.33 X10^6/uL (4.0-5.2); Red Cell Distribution Width 14.6 % (11.6-14.8); White Blood Cell Count 6.2 X10^3/uL (4.5-11.0)
[2019-04-17 02:42] LABS: Blood Urea Nitrogen 40 mg/dL (7-17); Calcium 9.9 mg/dL (8.4-10.2); Carbon Dioxide 27 mmol/L (22-32); Chloride 98 mmol/L (98-107); Creatine Kinase 149 U/L (30-135); Estimated Glomerular Filt Rate 33.5 mL/min (>60); Glucose 158 mg/dL (70-100); HEMOLYSIS < 15 (0-50); Potassium 4.5 mmol/L (3.4-5.1); Sodium 138 mmol/L (137-145)
[2019-04-17 02:54] LABS: Erythrocyte Sedimentation Rate 43 MM/HR (0-20); Troponin I < 0.012 ng/mL (0.01-0.034)
[2019-04-17 02:55] LABS: C-Reactive Protein Quant 0.7 mg/dL (<1.0)
[2019-04-17 02:56] LABS: CKMB % Relative Index 1.1 % (1.5-5.0); Creatine Kinase MB 1.69 ng/mL (<2.37)
[2019-04-17] MEDS: SODIUM CHLORIDE 0.9% 1,000 ML 1000 ML IV ×2 (03:38→04:40)
[2019-04-17] MEDS: KETOROLAC 60 MG/2 ML VIAL 15 MG IV (03:39)
[2019-04-17 04:51] LABS: Lactate (Lactic Acid) 1.5 mmol/L (0.7-2.1)
[2019-04-17 04:52] LABS: BUN Creatinine Ratio 24.4 (6-22); Blood Urea Nitrogen 39 mg/dL (7-17); Calcium 9.2 mg/dL (8.4-10.2); Carbon Dioxide 25 mmol/L (22-32); Chloride 103 mmol/L (98-107); Estimated Glomerular Filt Rate 33.5 mL/min (>60); Glucose 110 mg/dL (70-100); HEMOLYSIS < 15 (0-50); Potassium 4.1 mmol/L (3.4-5.1); Sodium 140 mmol/L (137-145)
[2019-04-17 05:04] LABS: Troponin I < 0.012 ng/mL (0.01-0.034)
[2019-04-17 06:41] LABS: Influenza A and B by PCR Rapid Negative (Negative)
--- NOTE | 2019-04-17 06:41 | P.HP_ITS ---
History of Present Illness History of Present Illness Date Patient Seen: 04/17/19 Time Patient Seen: 05:15 Chief complaint: Burning pain on face/ear/neck Narrative: Sheela Brown is a 53 y.o. female with Diabetes type 2, hypertension, bipolar disorder, chronic pain syndrome, a healing right humeral fracture, who was in her usual state of health and presented to the emergency room with an initial complaint of right-sided face and ear pain. She recently had some dental work replacing 2 crowns approximately 3 days ago and apparently has not been drinking much fluids since then. She states that she has only been drinking about 1 cup of tea a day. She states that she has been feeling poorly, has a dry mouth, sore throat, and had ear pain. She denies any nasal discharge, fever, nausea or vomiting, chest pain, shortness of breath, dysuria, diarrhea or constipation. In the emergency room they gave her 2 L of normal saline and her blood pressure remained in the low 90s however when I went in to see her her last blood pressure was 122 over the high 70s with a map of 78. She was recommended for observation and possibly optimization of her medications once we have her current records. The patient states that she was recently put on losartan and hydrochlorothiazide for hypertension however these medications are not in her records. These have hector hardin held. She is also a type 2 diabetic and takes metformin a 1000 mg twice a day and states she takes Lantus 60 units in the morning and 30 in the evening and takes NovoLog 15 units with meals and these doses are not consistent with what is shown in the current chart. The patient is also treated for chronic back pain and is on bupropion , ketamine and apparently her toxicology screen indicated positive for THC. She takes high doses of quetiapine 800 mg at bedtime and 100 mg ?as needed? as a mood stabilizer. Patient History Family & Social History Family History (Updated 04/17/19 @ 06:51 by MOY Childress) Father COPD (chronic obstructive pulmonary disease) Mother Hypertension Sister Fibromyalgia Social History: household members spouse Prior Living Arrangements House lives independently Yes caregiver/support person No Safety & Behavioral: Feels Safe in Current Yes Environment Suicidal Ideation Description None Suicide Plan Description No Plan Tobacco & Substance use: Smoking Status Never smoker alcohol intake current, 1-2 drinks/month Meds Home Medications and Allergies Home Medications Medication Instructions Recorded Confirmed Type [KETAMINE] 100 mg PO #0 09/19/17 12/24/18 History buprenorphine HCl 8 mg SUBLINGUAL TID #0 09/19/17 12/24/18 History cholecalciferol (vitamin D3) 2,000 unit PO QDAY #0 09/19/17 12/24/18 History [Vitamin D3] dicyclomine 20 mg PO QIDP PRN #0 09/19/17 12/24/18 History fenofibrate 160 mg PO QDAY #0 09/19/17 12/24/18 History insulin aspart U-100 [Novolog 10 - 25 unit SQ TIDAC #0 09/19/17 12/24/18 History U-100 Insulin aspart] insulin glargine [Lantus U-100 30 unit SQ QPM #0 09/19/17 12/24/18 History Insulin] insulin glargine [Lantus U-100 40 unit SQ QDAY #0 09/19/17 12/24/18 History Insulin] lisinopril 10 mg PO QDAY #0 09/19/17 12/24/18 History lorazepam 2 mg PO #0 09/19/17 12/24/18 History metformin [Glucophage XR] 1,000 mg PO BID #0 09/19/17 12/24/18 History metoclopramide HCl [Reglan] 5 - 10 mg PO PRN PRN #0 09/19/17 12/24/18 History metoprolol succinate [Toprol XL] 100 mg PO QDAY #0 09/19/17 12/24/18 History pravastatin 20 mg PO QDAY #0 09/19/17 12/24/18 History quetiapine [Seroquel] 100 mg PO PRN #0 09/19/17 12/24/18 History quetiapine [Seroquel] 800 mg PO HS #0 09/19/17 12/24/18 History valacyclovir QID #0 09/19/17 12/24/18 History vitamin B complex [B 1 tab PO QDAY #0 09/19/17 12/24/18 History Complex-Vitamin B12] celecoxib 200 mg capsule 200 mg PO DAILY #30 cap 10/10/18 12/24/18 Rx fluoxetine 20 mg capsule 20 mg PO DAILY 10/10/18 12/24/18 History methylphenidate HCl 10 mg tablet 10 mg PO BID #60 tab 12/24/18 Rx Allergies Allergy/AdvReac Type Severity Reaction Status Date / Time cat dander Allergy Hives Verified 12/24/18 14:40 house dust Allergy Itchy Verified 12/24/18 14:40 throat No Known Allergies Allergy Uncoded 12/24/18 14:40 Review of Systems Review of Systems ROS Unobtainable: All systems reviewed & are unremarkable except as noted in HPI and below Exam Vital Signs (past 8 hours): - 04/17/19 02:06 04/17/19 03:16 04/17/19 04:05 Temperature 98.5 F Pulse Rate 80 Pulse Rate [Orthostatic Lying] 67 Pulse Rate [Orthostatic Sitting] 71 Pulse Rate [Orthostatic Standing] 77 Respiratory Rate 16 Blood Pressure 103/68 Blood Pressure [Left Arm] 79/55 L Blood Pressure [Orthostatic Lying] 76/54 L Blood Pressure [Orthostatic Sitting] 84/59 L Blood Pressure [Orthostatic Standing] 84/60 L Pulse Oximetry 100 04/17/19 04:44 04/17/19 05:02 04/17/19 05:42 Temperature Pulse Rate 78 Pulse Rate [Orthostatic Lying] Pulse Rate [Orthostatic Sitting] Pulse Rate [Orthostatic Standing] Respiratory Rate 16 Blood Pressure Blood Pressure [Left Arm] 84/54 L 94/61 120/71 Blood Pressure [Orthostatic Lying] Blood Pressure [Orthostatic Sitting] Blood Pressure [Orthostatic Standing] Pulse Oximetry 100 04/17/19 06:11 Temperature Pulse Rate 67 Pulse Rate [Orthostatic Lying] Pulse Rate [Orthostatic Sitting] Pulse Rate [Orthostatic Standing] Respiratory Rate 15 Blood Pressure 119/85 Blood Pressure [Left Arm] Blood Pressure [Orthostatic Lying] Blood Pressure [Orthostatic Sitting] Blood Pressure [Orthostatic Standing] Pulse Oximetry 100 Oxygen Delivery Method Room Air Narrative Exam Narrative: Gen: Alert, oriented, well-developed 53 y.o. female, lethargic, but non-toxic HEENT: normocephalic, atraumatic, conjunctiva clear, sclera non-icteric, oral mucosa pink and moist Neck: supple, full ROM Resp: Lungs CTA, non-labored breathing CV: RRR, no murmur or rubs Abd: soft, non-tender, normoactive BTs Skin: no lesions or rashes, dry and intact Neuro: Alert and oriented X 4 w/no focal deficits Extremities: Right upper arm and shoulder are tender, patient is icing it, right foot has a appears to have a more recent trauma or surgical scar on the dorsal aspect of her right foot is ambulatory, negative Mic?s sign Psyche: normal mood and affect. Objective Labs Result Diagrams: 04/17/19 02:22 04/17/19 04:31 Labs: Laboratory Results - last 24 hr 04/17/19 04/17/19 04/17/19 02:22 02:22 04:31 WBC 6.2 RBC 4.33 Hgb 12.0 Hct 35.8 L MCV 82.8 MCH 27.7 MCHC 33.5 RDW 14.6 Plt Count 238 Neut % (Auto) 70.5 Lymph % (Auto) 22.5 L [place] % (Auto) 5.9 Eos % (Auto) 0.7 L Baso % (Auto) 0.4 Neut # (Auto) 4400 Lymph # (Auto) 1400 [place] # (Auto) 400 Eos # (Auto) 0 Baso # (Auto) 0 ESR 43 H Sodium 138 140 Potassium 4.5 4.1 Chloride 98 103 Carbon Dioxide 27 25 BUN 40 H 39 H Creatinine 1.60 H 1.60 H Estimated GFR 33.5 L 33.5 L BUN/Creatinine Ratio 25.0 H 24.4 H Glucose 158 H 110 H Lactate Calcium 9.9 9.2 Total Creatine Kinase 149 H CK-MB (CK-2) 1.69 CK-MB (CK-2) Rel Index 1.1 L Troponin I < 0.012 < 0.012 C-Reactive Protein 0.7 04/17/19 04:31 WBC RBC Hgb Hct MCV MCH MCHC RDW Plt Count Neut % (Auto) Lymph % (Auto) [place] % (Auto) Eos % (Auto) Baso % (Auto) Neut # (Auto) Lymph # (Auto) [place] # (Auto) Eos # (Auto) Baso # (Auto) ESR Sodium Potassium Chloride Carbon Dioxide BUN Creatinine Estimated GFR BUN/Creatinine Ratio Glucose Lactate 1.5 Calcium Total Creatine Kinase CK-MB (CK-2) CK-MB (CK-2) Rel Index Troponin I C-Reactive Protein Assessment & Plan Assessment & Plan narrative: Sheela Brown is placed into observation for further hydration and workup of an acute kidney injury. 1. Dehydration due to acute kidney injury, present on admission * Patient was provided 2 L of IV normal saline in the ED, she will receive normal saline at 125 mL/hour * Recheck CMP 04/18 * We will need to have pharmacy evaluate her medications to avoid further nephrotoxicity * Losartan hydrochlorothiazide have been held * Rapid strep and flu swabs are negative, done due to patient complaints of a sore throat. 2. Diabetes type 2, chronic/stable, POA * Oral Metformin is being held * Patient's current medication list indicates she is supposed to be taking Lantus 40 units during the day and 30 units in the evening. Patient reports to me that she takes 60 units during the day and 30 units during the evening. Her current blood glucose was 110, she reported that she took last night's dose of 30 units. She will receive 30 units this am and will re-evaluate. * Due to her not eating, I am holding her prandial insulin 3. Essential hypertension, chronic * Patient was hypotensive in the ED, her pressures are now normalizing. * Due to KARISHMA, her losartan and HCTZ are being held 4. Bipolar disorder, chronic * She is written for quetiapine 800 mg at bedtime and 100 mg prn. She will be written for her evening dose and will discuss with the patient when she requests prn dosing. 5. Chronic pain syndrome currently on MAT, chronic * She may continue her home dose of buprenorphine/naloxone and will need to take her own medication 6. Hyperlipidemia, chronic * She is continued on her home dose of fenofibrate 160 mg at bedtime. Patient is placed into observation as her stay is not anticipated to exceed 2 midnights. FEN: NS at 75 ml/hour, carb control diet, chemistries in the am. VTE Prophylaxis: SubQ heparin 5000 units bid Disposition: likely discharge to home Code status: Full code Admission time: 75 minutes Meds reconciled: Yes, Partial based on current med list
[2019-04-17 06:50] LABS: Phosphorous 4.6 mg/dL (2.5-4.5)
[2019-04-17] MEDS: SODIUM CHLORIDE 0.9% 1,000 ML 125 ML IV (06:55)
[2019-04-17] MEDS: FLUoxetine 20 MG CAPSULE PO (09:44)
[2019-04-17] MEDS: HEPARIN 5,000 UNIT/ML VIAL 5000 UNIT SUBCUT ×2 (09:44→20:14)
[2019-04-17] MEDS: METHYLPHENIDATE 5 MG TABLET 10 MG PO ×2 (09:46→20:15)
[2019-04-17] MEDS: INSULIN GLARGINE 100 UNIT/ML 3ML PEN 30 UNIT SUBCUT ×2 (09:46→20:22)
[2019-04-17] MEDS: METOPROLOL ER 50 MG TABLET 100 MG PO (09:47)
[2019-04-17] MEDS: ONDANSETRON 4 MG/2 ML INJ IV (10:01)
--- NOTE | 2019-04-17 10:35 | CM.IDA ---
Initial DCP Assessment Note: Pt is a 53 yo female, resident of [place]. Here under observation for face pain, found to be severely dehydrated sec to acute kidney injury. PCP: Dr Davi Clark: Brandan Reviewed chart. Pt discussed in multidisciplinary rounds. Pt expected to DC later today or tomorrow, pt's labs improving. Met w/pt, explained SW role. Pt confirms she lives in [place] w/ spouse and 28 yo son, both whom she finds very supportive and able to assist as needed. Pt is indp and active at her baseline. Pt denies needs from this TSO and is eager to return home when medically cleared. MIGDALIA Callaway Discharge Planning/Care Management CM Discharge Assessment Start: 04/17/19 10:34 Freq: Status: Active Protocol: Document 04/17/19 10:34 CLAUDE (Rec: 04/17/19 10:35 CLAUDE [id number]) Discharge Planning Assessment Assigned Veneer Gluer MIGDALIA Fish DPOA/Assigned Designee Name Arnie Brown, spouse Contact Information [phone] home [phone] , cell Advance Directives? No History Provided By Patient Prior Living Arrangements House Household Members spouse,children Type of transporation used prior to Drives own vehicle admit Independent with ADL's Yes Is patient alert and oriented? Yes Barriers to Discharge No Discharge Plan Home Transportation Arrangement Family Referrals Initiated None needed Whiteboard Updated in Patient Room with Yes name and ext. # of Veneer Gluer Review Status In Process
[2019-04-17 11:47] LABS: Appearance Urine UA CLOUDY; Bilirubin Urine UA NEGATIVE (NEGATIVE); Color Urine UA YELLOW; Glucose Urine UA NEGATIVE (Negative); Ketones Urine UA NEGATIVE (NEGATIVE); Leukocyte Esterase Urine UA NEGATIVE (NEGATIVE); Nitrite Urine UA POSITIVE (Negative); Occult Blood Urine UA NEGATIVE (Negative); Protein Urine UA TRACE (Negative); Specific Gravity Urine UA 1.025 (1.000-1.035); Urobilinogen Urine UA 0.2 E.U./dL (0.2)
[2019-04-17 12:00] LABS: Bacteria Urine Many (>30); Culture Indicated Urine Specimen Cultured; RBC Urine 1-5/HPF (0-5/HPF); Squamous Epithelial Cell Urine 5-10 /HPF (0-5/HPF); WBC Urine 1-5/HPF (0-5/HPF)
[2019-04-17] MEDS: LORazepam 1 MG TABLET 4 MG PO ×2 (16:45→20:14)
[2019-04-17] MEDS: ACETAMINOPHEN 325 MG TABLET 650 MG PO (19:13)
[2019-04-17 19:59] LABS: BUN Creatinine Ratio 27.7 (6-22); Blood Urea Nitrogen 36 mg/dL (7-17); Calcium 9.7 mg/dL (8.4-10.2); Carbon Dioxide 27 mmol/L (22-32); Chloride 101 mmol/L (98-107); Estimated Glomerular Filt Rate 42.5 mL/min (>60); Glucose 130 mg/dL (70-100); HEMOLYSIS < 15 (0-50); Potassium 4.4 mmol/L (3.4-5.1); Sodium 138 mmol/L (137-145)
[2019-04-17 20:11] LABS: Alanine Aminotransferase 86 IU/L (9-52); Albumin 4.4 g/dL (3.5-5.0); Albumin Globulin Ratio 1.4 (1.0-2.8); Alkaline Phosphatase 129 U/L (38-126); Aspartate Aminotransferase 75 IU/L (14-36); Bilirubin Total 0.5 mg/dL (0.2-1.3); Bilirubin Unconjugated 0.1 mg/dL (0.0-1.1); Globulin 3.1 g/dL (1.7-4.1); HEMOLYSIS < 15 (0-50); Total Protein 7.5 g/dL (6.3-8.2)
[2019-04-17] MEDS: MELATONIN 3 MG TABLET 9 MG PO (20:14)
[2019-04-17] MEDS: QUETIAPINE 200 MG TABLET 800 MG PO (20:15)
[2019-04-17] MEDS: SODIUM CHLORIDE 0.9% 1,000 ML 75 ML IV (20:15)
--- NOTE | 2019-04-17 20:42 | PM.EVENT ---
Event Note Date Patient Seen: 04/17/19 Time Patient Seen: 20:42 Event Note: Addendum 6:49 a.m. A.m. labs reviewed. Creatinine has improved now down to 1.0. IV fluids were discontinued. Transaminases continued to be elevated, however improved. Patient's hemoglobin dropped from 12 to 10.9 g/dL. Follow-Up on lab results and potential patient discharge Patient seen at approximately 8:35 p.m. Labs, 04/17 @ 1930 Na 138 K 4.4 Cl 101 Ca 9.7 Alb 4.4 Glu 130 CO2 27 BUN 36 CR 1.3 GFR 42.5 BUN/CR 27.7 TBili 0.5 AST 75 ALT 86 Alk Phos 129 To note labs from earlier, 04/17 @ 0222 CRP 0.7 Lactate 1.5 ESR 45 Patient is admitted for dehydration and KARISHMA. Admission records indicate that patient recently underwent a dental procedure and for this reason has had decreased intake of food and fluids. It is also noted that patient was recently started on losartan-HCTZ for hypertension. Patient with significant history of polypharmacy. Many medications on her routine profile have potential for nephrotoxicity and hepatotoxicity. KARISHMA, baseline sCr 0.9-1.2 (per review of records). Presented w/ sCr of 1.6. On 03/30/2019, sCr 0.9. Currently on NS at 75 ml/hr. Most recent VS (2009) BP 180/102 HR 71 RR 21 SpO2 97% on room air Temp 99.3F. Patient has received Tylenol 650 mg (7:13 pm), Ativan 4 mg (8:14 pm), Melatonin 9 mg (8:14 pm), and Seroquel 800 mg (8:15 pm). - Renal function has improved, 1.6 -> 1.3 Renal function is not at baseline. Last 3 blood pressures (since noon 04/17) have been upward trending. Unable to discharge patient this evening due to unresolved KARISHMA and labile BP trend. - Increase IVF to 100 ml/hr - Strict I/O monitoring Hypertension, chronic condition, present on admission, active - Continue Q4H VS, will repeat VS now Lethargy, acute, present on admission, active At time of visit patient was minimally cooperative. She states that she is tired and wishes to sleep. She is able to answer questions appropriately and follow commands appropriately. at bedside, comments that patient is known to have hypersomnolence. Patient does have AMY, currently not on CPAP. does note CPAP adherence at home. - Neuro and LOC checks Q4H - Place on SpO2 monitoring overnight - D/C melatonin - Change ativan to 1 mg PO TID PRN (decreased dose and changed to PRN), to hold if patient is sedated - Patient is on Seroquel 800 mg QHS. In addition, taking 100 mg prn (per home redimen). PRN dose is not being continued in the hospital. Seroquel dose is maximum recommended per manufacture. Patient has a history HERRING. Reduced dosing is recommended in patients with liver abnormalities. Will add hepatic panel to most recent lab (results noted above) Polypharmacy, chronic, present on admission, active Patient's medications are managed by her psychiatrist, Dr. Sheridan / , and her PCP, Dr. Tomlinson. Patient's does not know which medications the patient takes. Commented that he will bring the bottles tomorrow (04/18). Patient's notes that the patient does not follow up with her psychiatrist frequently, once or twice a year. He also notes that in addition to her psychotropic medications the psychiatrist manages her pain medications. - Patient would highly benefit from re-evaluation of her entire home medication regimen Elevated aminotransferase, AST 86 and ALT 75, chronic (close to baseline) TBili 0.5 AST 75 ALT 86 Alk Phos 129 Patient's records show a diagnosis of HERRING. It is not entirely clear how much of a workup patient has had. She certainly does have risk factors of obesity, DM2T, and dyslipidemia that would predispose her to developing HERRING. AST:ALT 1.1. However, she also has medication profile that would predispose her to liver toxicity. Patient does drink occasionally, however is not known to have significant history of EtOH abuse. New orders as noted above AM labs: CBC, CMP, PO4, CK level Patient's PMHx reviewed HTN, IDDM 2T (w/ complications of neuropathy), dyslipidemia, HERRING, AMY (on CPAP), hypersomnolence, obesity (BMI 31.7), bipolar disorder, MDD, anxiety, h/o pancreatitis, h/o PE x2 (greater than 10 yrs ago), and OA. The patient has chronic pain in the right lumbosacral junction w/ diagnoses of chronic pain syndrome and lumbar post laminectomy syndrome. Does not follow w/ pain management per . Records mention a complex history in regard to back pain dating back to 1983. H/O herniated discs, s/p decompressive laminectomy L1-L5. Post surgical procedure continued to have progressive difficulties with low back pain. Thereafter, has been treated with epidural steroid injections, medial branch blocks, rhizotomy, and a spinal cord stimulator. Spinal cord stimulator was taken out after number of years. On Suboxone. Reviewed patient's records via [place] prescription monitoring program from 04/18/2018 to 04/18/2019 The patient is consistently filling ketamine, lorazepam, methylphenidate, and Suboxone Ketamine powder quantity 24 day supply 30 last filled 04/07/2019, 03/09/2019, 02/12/2019 Lorazepam 2 mg quantity 180 day supply 30 last filled 03/20/2019, 01/18/2019, 01/12/2019 Methylphenidate 10 mg quantity 120 day supply 30 last filled 03/20/2019, 02/16/2019 Buprenorp-Nalox 2-0.5 quantity 30 day supply 30 last filled 03/06/2019 above state dose is her typical dose, however had a higher dose filled (buprenorp-nalox 8-2 mg) on 02/14/2019 and 01/16/2019 Meds being prescribed by Maxx Sheridan MD, Domonique MITCHELL, and Paul Myers Patient typically fills her prescriptions at [facility] ([place]), [facility] ([place]), and [facility] ([place]) - Patient on a double dose of lorazepam 4 mg TID, not entirely clear how this dose was ascertained. It has already been adjusted as noted above.
[2019-04-18 00:40] VITALS: O2SAT 97
[2019-04-18 02:00] VITALS: BP 145/86; PULSE 66; RESP 16; TEMP 36.7; O2SAT 97
[2019-04-18 05:39] LABS: Add Manual Diff / Slide Review NO; Basophils Absolute Auto 0 /uL (0-100); Basophils Percent Auto 0.4 % (0-2); Eosinophils Absolute Auto 100 /uL (0-450); Eosinophils Percent Auto 1.9 % (2-4); Hematocrit 31.4 % (36-46); Hemoglobin 10.9 g/dL (12.0-16.0); Lymphocytes Absolute Auto 1300 /uL (1100-4500); Lymphocytes Percent Auto 36.3 % (25-40); Mean Corpuscular HGB Conc 34.6 % (30-36); Mean Corpuscular Hemoglobin 28.5 PG (26-34); Mean Corpuscular Volume 82.4 fL (80-100); Monocytes Absolute Auto 200 /uL (0-900); Monocytes Percent Auto 6.3 % (3-14); Neutrophils Absolute Auto 2100 /uL (1500-7000); Neutrophils Percent Auto 55.1 % (50-75); Platelet Count 186 X10^3/uL (150-400); Red Blood Cell Count 3.81 X10^6/uL (4.0-5.2); Red Cell Distribution Width 14.4 % (11.6-14.8); White Blood Cell Count 3.7 X10^3/uL (4.5-11.0)
[2019-04-18 05:50] LABS: Alanine Aminotransferase 76 IU/L (9-52); Albumin 3.9 g/dL (3.5-5.0); Albumin Globulin Ratio 1.3 (1.0-2.8); Alkaline Phosphatase 116 U/L (38-126); Aspartate Aminotransferase 59 IU/L (14-36); Bilirubin Total 0.4 mg/dL (0.2-1.3); Blood Urea Nitrogen 30 mg/dL (7-17); Calcium 9.5 mg/dL (8.4-10.2); Carbon Dioxide 26 mmol/L (22-32); Chloride 104 mmol/L (98-107); Creatine Kinase 107 U/L (30-135); Estimated Glomerular Filt Rate 57.6 mL/min (>60); Globulin 2.9 g/dL (1.7-4.1); Glucose 95 mg/dL (70-100); HEMOLYSIS < 15 (0-50); Phosphorous 4.2 mg/dL (2.5-4.5); Potassium 4.2 mmol/L (3.4-5.1); Sodium 140 mmol/L (137-145); Total Protein 6.8 g/dL (6.3-8.2)
[2019-04-18 06:28] VITALS: BP 147/93; PULSE 71; RESP 16; TEMP 36.1; O2SAT 96
[2019-04-18] MEDS: METHYLPHENIDATE 5 MG TABLET 10 MG PO (06:36)
--- NOTE | 2019-04-18 06:58 | PC.NURSE ---
Slept most of the shift, independent with mobility. Denies any pain all shift, but requested to take her Ritalin early this morning. Will report to day RN.
--- NOTE | 2019-04-18 07:48 | PM.DS.1 ---
History of Present Illness History of Present Illness Date Patient Seen: 04/17/19 Chief complaint: Burning pain on face/ear/neck Narrative: Written by April IWNTER: Sheela Brown is a 53 y.o. female with Diabetes type 2, hypertension, bipolar disorder, chronic pain syndrome, a healing right humeral fracture, who was in her usual state of health and presented to the emergency room with an initial complaint of right-sided face and ear pain. She recently had some dental work replacing 2 crowns approximately 3 days ago and apparently has not been drinking much fluids since then. She states that she has only been drinking about 1 cup of tea a day. She states that she has been feeling poorly, has a dry mouth, sore throat, and had ear pain. She denies any nasal discharge, fever, nausea or vomiting, chest pain, shortness of breath, dysuria, diarrhea or constipation. In the emergency room they gave her 2 L of normal saline and her blood pressure remained in the low 90s however when I went in to see her her last blood pressure was 122 over the high 70s with a map of 78. She was recommended for observation and possibly optimization of her medications once we have her current records. The patient states that she was recently put on losartan and hydrochlorothiazide for hypertension however these medications are not in her records. These have been held. She is also a type 2 diabetic and takes metformin a 1000 mg twice a day and states she takes Lantus 60 units in the morning and 30 in the evening and takes NovoLog 15 units with meals and these doses are not consistent with what is shown in the current chart. The patient is also treated for chronic back pain and is on bupropion , ketamine and apparently her toxicology screen indicated positive for THC. She takes high doses of quetiapine 800 mg at bedtime and 100 mg ?as needed? as a mood stabilizer. Discharge Providers Provider Date of admission: 04/17/19 05:36 Discharge Date: 04/18/19 Primary care physician: Neftaly Tomlinson MD Discharge provider: Missy Carney DO Summary Hospital Course Discharge Diagnosis: 1. Dehydration, present on admission. Resolved. 2. Acute kidney injury, present on admission. Resolved. 3. Diabetes mellitus type 2, insulin using, present on admission. Stable. 4. Hypertension, chronic, present on admission. Stable. 5. Hyperlipidemia, chronic, present on admission. Stable. 6. Chronic pain syndrome currently on Suboxone, chronic, present on admission. Stable. 7. Bipolar disorder, chronic, present on admission. Stable. 8. HERRING, chronic, present on admission. Active. 9. Polypharmacy, chronic, present on admission. Active. Hospital Course: Sheela Brown is a 53-year-old female with a past medical history significant for hypertension, hyperlipidemia, diabetes mellitus type 2, insulin using, bipolar disorder, chronic pain syndrome on Suboxone, who was in her usual state of health and presented to the ED with an initial complaint of right-sided face and ear pain. Patient was found to be dehydrated with resultant acute kidney injury and was admitted for observation. 1. Dehydration, present on admission. Resolved. -Patient underwent recent dental procedure and due to mouth tenderness had decreased PO intake. -Rapid strep and flu swabs are negative, done due to patient complaints of a sore throat. -Received 2 L NS in ED. Continued IV fluid hydration until adequately hydrated then discontinued. 2. Acute kidney injury, present on admission. Resolved. -Secondary to dehydration and nephrotoxic medications. -Initial creatinine 1.6. Baseline creatinine 0.9-1.1. Creatinine now 1.0. -Avoided nephrotoxic agents. Held losartan and hydrochlorothiazide. The patient has a multitude of other medications but none that are significantly renal toxic. -Patient also reports Excedrin use daily which was recommended to avoid or use sparingly. 3. Diabetes mellitus type 2, insulin using, present on admission. Stable. -Last hemoglobin A1c 6.2% 01/07. -Held metformin. -Continued Lantus in which patient takes 60 units daily and 30 units daily at bedtime. Decreased morning dose to 30 units due to decreased PO intake and continued 30 units daily at bedtime. -Continued heart healthy/carbohydrate consistent diet. 4. Hypertension, chronic, present on admission. Stable. -Patient was hypotensive in the ED due to dehydration. BP normalized and slightly hypertensive. -Due to KARISHMA losartan and hydrochlorothiazide were held. Continued losartan at time of discharge. Discontinued hydrochlorothiazide at patient's request. If patient continues to be hypertensive would recommend maximizing losartan and metoprolol and if additional antihypertensive required would suggest amlodipine. 5. Hyperlipidemia, chronic, present on admission. Stable. -Continued fenofibrate 160 mg at bedtime. 6. Chronic pain syndrome currently on Suboxone, chronic, present on admission. Stable. -Continued buprenorphine/naloxone for which her dose was confirmed and takes 4 mg daily. Currently dose is being titrated down. 7. Bipolar disorder, chronic, present on admission. Stable. -Patient is on Seroquel 800 mg daily at bedtime and additional 100 mg TID as needed. PRN dose discontinued as scheduled seroquel dose is maximum recommended per manufacture. Also the patient has a history HERRING in which reduced dosing is recommended in patients with liver abnormalities. -Patient was noted to be lethargic and has history of hypersomnolence and also due to sedative affects of Seroquel and benzodiazepines. Continuous pulse oximetry was placed overnight to monitor oxygen saturation closely. 8. HERRING, chronic, present on admission. Active. -Elevated LFT's demonstrate TBili 0.5, AST 75, ALT 86, Alk Phos 129 which is chronic and at baseline. -Patient's records show a diagnosis of HERRING. It is not entirely clear how much of a workup has been performed. She certainly does have risk factors of obesity, diabetes mellitus type 2, and hyperlipidemia that would predispose her to developing HERRING. AST:ALT 1.1. However, she also has medication profile that would predispose her to liver toxicity. Patient does drink occasionally, however is not known to have significant history of EtOH abuse. -Recommend titration down on hepatotoxic medications and hepatology referral. 9. Polypharmacy, chronic, present on admission. Active. -Patient's medications are managed by her psychiatrist, Dr. Sheridan / , and her PCP, Dr. Tomlinson. Patient's notes that the patient does not follow up with her psychiatrist frequently, once or twice a year. He also notes that in addition to her psychotropic medications the psychiatrist manages her pain medications. -Patient would highly benefit from re-evaluation of her entire home medication regimen. Exam Vital Signs (past 8 hours): - 04/18/19 00:40 04/18/19 02:00 04/18/19 06:28 Temperature 98.1 F 97.0 F L Pulse Rate 66 71 Respiratory Rate 16 16 Blood Pressure 145/86 H 147/93 H Pulse Oximetry 97 97 96 Oxygen Delivery Method Room Air Oxygen Flow Rate 0 Narrative Exam Narrative: General: Middle-aged female lying in bed and in no acute distress, well-developed, well-nourished, mildly withdrawn but appropriately interactive. HEENT: Normocephalic, atraumatic. External ears without defect. Pupils equal, round, and reactive to light. Anicteric sclerae, moist conjunctivae, and no lid lag. Oropharynx free of erythema and cobble stoning with moist mucosa. No rashes on the face with sensation now normal. Neck: Supple with full range of motion. No jugular venous distension. No lymphadenopathy or thyromegaly. Cardiovascular: Regular rate and rhythm without murmurs, rubs, or gallops appreciated. Pulmonary: Clear to auscultation bilaterally without crackles, wheezes, or rhonchi. Normal respiratory effort with no use of accessory muscles. Abdomen: Soft, bowel sounds present, nontender, nondistended. No hepatosplenomegaly or masses appreciated. Extremities: No clubbing, cyanosis, or edema. Skin: Normal temperature, turgor, and texture; no rash, ulcers, or subcutaneous nodules appreciated. Neurological: Cranial nerves grossly intact. Psychiatric: Mildly withdrawn but normal mood and flat affect. Alert and oriented to person, place, and time. Objective Labs Result Diagrams: 04/18/19 05:25 04/18/19 05:25 Labs: Laboratory Results - last 24 hr 04/17/19 04/17/19 04/17/19 09:43 19:30 19:30 WBC RBC Hgb Hct MCV MCH MCHC RDW Plt Count Neut % (Auto) Lymph % (Auto) [place] % (Auto) Eos % (Auto) Baso % (Auto) Neut # (Auto) Lymph # (Auto) [place] # (Auto) Eos # (Auto) Baso # (Auto) Sodium 138 Potassium 4.4 Chloride 101 Carbon Dioxide 27 BUN 36 H Creatinine 1.30 H Estimated GFR 42.5 L BUN/Creatinine Ratio 27.7 H Glucose 130 H Calcium 9.7 Phosphorus Total Bilirubin 0.5 Conjugated Bilirubin 0.0 Unconjugated Bilirubin 0.1 AST 75 H ALT 86 H Alkaline Phosphatase 129 H Total Creatine Kinase Total Protein 7.5 Albumin 4.4 Globulin 3.1 Albumin/Globulin Ratio 1.4 Urine Color Yellow Urine Appearance Cloudy Urine pH 5.0 Ur Specific Bryan 1.025 Urine Protein Trace H Urine Glucose (UA) Negative Urine Ketones Negative Urine Occult Blood Negative Urine Nitrate Positive Urine Bilirubin Negative Urine Urobilinogen 0.2 Ur Leukocyte Esterase Negative Urine RBC 1-5/hpf Urine WBC 1-5/hpf Ur Squamous Epith Cells 5-10 /hpf H Urine Bacteria Many (>30) H Ur Culture Indicated? Specimen cultured 04/18/19 04/18/19 04/18/19 05:25 05:25 05:25 WBC 3.7 L RBC 3.81 L Hgb 10.9 L Hct 31.4 L MCV 82.4 MCH 28.5 MCHC 34.6 RDW 14.4 Plt Count 186 Neut % (Auto) 55.1 Lymph % (Auto) 36.3 [place] % (Auto) 6.3 Eos % (Auto) 1.9 L Baso % (Auto) 0.4 Neut # (Auto) 2100 Lymph # (Auto) 1300 [place] # (Auto) 200 Eos # (Auto) 100 Baso # (Auto) 0 Sodium 140 Potassium 4.2 Chloride 104 Carbon Dioxide 26 BUN 30 H Creatinine 1.00 Estimated GFR 57.6 L BUN/Creatinine Ratio 30.0 H Glucose 95 Calcium 9.5 Phosphorus 4.2 Total Bilirubin 0.4 Conjugated Bilirubin Unconjugated Bilirubin AST 59 H ALT 76 H Alkaline Phosphatase 116 Total Creatine Kinase 107 Total Protein 6.8 Albumin 3.9 Globulin 2.9 Albumin/Globulin Ratio 1.3 Urine Color Urine Appearance Urine pH Ur Specific Bryan Urine Protein Urine Glucose (UA) Urine Ketones Urine Occult Blood Urine Nitrate Urine Bilirubin Urine Urobilinogen Ur Leukocyte Esterase Urine RBC Urine WBC Ur Squamous Epith Cells Urine Bacteria Ur Culture Indicated? Discharge Plan Discharge Plan Patient Disposition: Home Discharge comment: Your being discharged home. You were admitted due to kidney injury from dehydration and several medications that can be toxic to your kidneys if given the right circumstances. You may continue losartan 50 mg daily. Your hydrochlorothiazide was discontinued at your request. Please continue to stay well hydrated and drink plenty of fluid. Avoid excessive NSAID use including: Ibuprofen, naproxen, meloxicam, indomethacin, aspirin, etc as these can injury your kidneys and be abrasive to the GI tract potentially causing ulcers and bleeding. Please follow-up with your primary care provider, Dr. Tomlinson, in the next 1 week regarding your hospitalization. Recommend hepatology referral to evaluate your HERRNIG. Also recommend your medications be adjusted as your Seroquel is at the highest dose per the box sealing machine feeder and it can cause several issues including EPS syndrome, neuro malignant syndrome, weight gain, diabetes, and liver disease. Discharge Med Rec/Prescriptions Prescriptions: New losartan 50 mg tablet 50 mg PO DAILY Qty: 30 RF: 0 Continued metoprolol succinate [Toprol XL] 100 MG tablet extended release 24 hr 100 mg PO DAILY Qty: 0 RF: 0 fenofibrate 160 MG tablet 160 mg PO DAILY Qty: 0 RF: 0 Lantus U-100 Insulin 100 UNIT/1 ML solution 60 unit SQ DAILY Qty: 0 RF: 0 Lantus U-100 Insulin 100 UNIT/1 ML solution 30 unit SQ QPM Qty: 0 RF: 0 Novolog U-100 Insulin aspart 100 UNIT/1 ML solution 10 - 25 unit SQ TIDAC Qty: 0 RF: 0 metoclopramide HCl [Reglan] 5 MG tablet 10 mg PO QID PRN (Reason: Nausea) Qty: 0 RF: 0 quetiapine [Seroquel] 400 MG tablet 800 mg PO BEDTIME Qty: 0 RF: 0 quetiapine [Seroquel] 100 MG tablet 100 mg PO TID PRN (Reason: episodes) Qty: 0 RF: 0 lorazepam 2 MG tablet 4 mg PO TID Qty: 0 RF: 0 atorvastatin 80 mg Tablet 80 mg PO DAILY RF: 0 methylphenidate HCl 10 mg tablet 10 mg PO QID RF: 0 buprenorphine-naloxone 2-0.5 mg Film 1 film BUCCAL DAILY RF: 0 omega-3 acid ethyl esters 1 gram Capsule 2 cap PO BID RF: 0 tizanidine 2 mg Tablet 2 mg PO Q8H PRN (Reason: Spasms) RF: 0 fluoxetine 20 mg capsule 20 mg PO DAILY RF: 0 Discontinued losartan-hydrochlorothiazide 50-12.5 mg tablet 1 tab PO DAILY RF: 0 Follow up/Referrals: Neftaly Tomlinson MD [Primary Care Provider] - 1 Week Provider Discharge Instructions Diet: Diet as Tolerated Activity: Activity as tolerated Visit Report/Discharge Packet Instructions: DI for Dehydration -- Adult, Nonalcoholic Fatty Liver Disease, DI for Acute Kidney Injury Visit Report Forms: Stroke Signs & Symptoms Discharge Data Primary Care Provider: Neftaly Tomlinson Attending Provider: Apirl Ramsey Admit Date/Time: 04/17/19 05:36
[2019-04-18 08:19] VITALS: BP 145/92; PULSE 75; RESP 14; TEMP 36.2; O2SAT 97
[2019-04-18] MEDS: BUPRENORPHINE SL (09:33)
[2019-04-18] MEDS: METOPROLOL ER 50 MG TABLET 100 MG PO (09:33)
[2019-04-18] MEDS: FLUoxetine 20 MG CAPSULE PO (09:33)
[2019-04-18] MEDS: NALOXONE SL (09:33)
[2019-04-18] MEDS: SODIUM CHLORIDE 0.9% FLUSH 10 ML IV (09:34)
[2019-04-18] MEDS: INSULIN GLARGINE 100 UNIT/ML 3ML PEN 60 UNIT SUBCUT (09:37)
== END 2019-04-18 10:09 | disposition home or self-care (01) ==
LOC: ED 05:15 → AC 05:37
PROVIDERS: Internal Medicine; Nurse Practitioner Gerontology; Admitting Provider Nurse Practitioner Family; Emergency Provider Emergency Medicine; Family Provider Internal Medicine; PCP Internal Medicine; Visit Provider Nurse Practitioner Family
DX: E86.0 Dehydration (principal); R51 Headache; K75.81 Nonalcoholic steatohepatitis (NASH); F31.9 Bipolar disorder, unspecified; G89.4 Chronic pain syndrome; E78.5 Hyperlipidemia, unspecified; I10 Essential (primary) hypertension; E11.9 Type 2 diabetes mellitus without complications; N17.9 Acute kidney failure, unspecified; Z79.4 Long term (current) use of insulin
CPT/HCPCS: 36415; 80048; 80053; 80076; 81001; 82550; 82553; 82962; 83605; 84100; 84484; 85025; 85651; 86140; 87077; 87086; 87186; 87400; 87502; 87880; 93005; 93010; 96361; 96372; 96374; 96375; 99283; 99284; G0378; J1644; J1885; J2405

== ENCOUNTER 2019-05-03 20:40 | Emergency (ER) | payer OTHER, SELFPAY ==
[2019-04-17 06:20] VITALS: BMI 30.8
[2019-05-03] MEDS: SODIUM CHLORIDE 0.9% 1,000 ML 1000 ML IV (20:33)
[2019-05-03 20:43] VITALS: BP 112/73; PULSE 57; RESP 12; TEMP 36.4; O2SAT 98
--- NOTE | 2019-05-03 20:51 | ED_ITS ---
HPI - Dizziness General Chief Complaint: Syncope Stated Complaint: syncope / polypharmacy Time Seen by Provider: 05/03/19 20:46 Source: patient and EMS Mode of arrival: EMS Limitations: no limitations History of Present Illness HPI Narrative: Patient is a 53-year-old female with history of chronic pain type 1 diabetes who presents with lightheadedness and dizziness. She was some a EMS to have a systolic blood pressure in the 80s. She takes multiple medications including ketamine. EMS started normal saline she overall is feeling better. She does have slurring speech but just took all of her medications. here states that she was getting ready for bed she was in bed she got very sweaty she needed to use the restroom 1 more time she went to the toilet were she passed out he was unable to arouse her. He checked her glucose it was 150. He took her blood pressure and it was also found to be very low. He states that she was started on losartan about 4 days ago for persistently elevated blood pressure. It does the only new medication that she has started. MD complaint: dizziness and lightheadedness Related Data Home Medications Medication Instructions Recorded Confirmed Lantus U-100 Insulin 30 unit SQ QPM #0 09/19/17 05/03/19 Lantus U-100 Insulin 60 unit SQ DAILY #0 09/19/17 05/03/19 Novolog U-100 Insulin aspart 10 - 25 unit SQ TIDAC #0 09/19/17 05/03/19 fenofibrate 160 mg PO DAILY #0 09/19/17 05/03/19 lorazepam 4 mg PO TID #0 09/19/17 05/03/19 metoclopramide HCl [Reglan] 10 mg PO QID PRN #0 09/19/17 05/03/19 metoprolol succinate [Toprol XL] 100 mg PO DAILY #0 09/19/17 05/03/19 quetiapine [Seroquel] 100 mg PO TID PRN #0 09/19/17 05/03/19 quetiapine [Seroquel] 800 mg PO BEDTIME #0 09/19/17 05/03/19 fluoxetine 20 mg capsule 20 mg PO DAILY 10/10/18 05/03/19 atorvastatin 80 mg PO DAILY 04/17/19 05/03/19 buprenorphine-naloxone 1 film BUCCAL DAILY 04/17/19 05/03/19 methylphenidate HCl 10 mg PO QID 04/17/19 05/03/19 omega-3 acid ethyl esters 2 cap PO BID 04/17/19 05/03/19 tizanidine 2 mg PO Q8H PRN 04/17/19 05/03/19 Previous Rx's Medication Instructions Recorded losartan 50 mg PO DAILY #30 tab 04/18/19 mupirocin 2 % topical ointment 1 applic TOP TID #30 gram 05/03/19 Allergies Allergy/AdvReac Type Severity Reaction Status Date / Time No Known Drug Allergies Allergy Verified 05/03/19 20:46 Review of Systems Review of Systems ROS Unobtainable: All systems reviewed & are unremarkable except as noted in HPI and below Constitutional Constitutional: Denies chills, Denies fever(s), Denies lethargy and Denies weakness Cardiovascular Cardiovascular: Denies chest pain, Denies irregular heart rhythm, Reports lightheadedness, Denies palpitations, Denies dyspnea, Denies dyspnea on exertion and Denies orthopnea Respiratory Respiratory: Denies cough, Denies dyspnea, Denies dyspnea on exertion and Denies wheezing Gastrointestinal Gastrointestinal: Denies abdominal pain, Denies change in bowel habits, Denies diarrhea, Denies nausea and Denies vomiting Genitourinary Genitourinary: Denies hematuria, Denies flank pain, Denies urinary incontinence and Denies urinary urgency Integumentary/Breasts Skin/Breast: Denies pruritus, Denies erythema, Denies rash and Denies wounds Neurologic Neurologic: Denies weakness Endocrine Endocrine: Denies palpitations Allergic/Immunologic Allergic/Immunologic: Denies wheezing Patient History Medical/Surgical History Medical History (Updated 05/03/19 @ 22:17 by Emily Russell DO) Anxiety (Chronic) Arthritis (Acute) Bipolar 1 disorder (Chronic) History of pancreatitis (Resolved) History of pulmonary embolism (Acute) Hypercholesterolemia with hypertriglyceridemia (Chronic) Hypersomnia (Chronic) Hypertension (Chronic) Major depressive disorder (Chronic) Neuropathy, diabetic (Acute) Nonalcoholic steatohepatitis (HERRING) (Chronic) Obesity (Chronic) Obstructive sleep apnea of adult (Chronic) Renal insufficiency (Acute) Snoring (Inactive) Type 2 diabetes mellitus (Chronic) Surgical History (Updated 04/17/19 @ 19:45 by MOY Gonzalez) Gastrocnemius equinus of right lower extremity (Acute) Family History (Updated 04/17/19 @ 06:51 by MOY Childress) Father COPD (chronic obstructive pulmonary disease) Mother Hypertension Sister Fibromyalgia Social History (Updated 04/17/19 @ 19:46 by MOY Gonzalez) marital status: details: rasheed Gaitan household members: spouse and children lives independently: Yes caregiver/support person: No occupational status: unemployed Smoking Status: Never smoker alcohol intake: current substance use type: marijuana Family/Social History Family History (Updated 04/17/19 @ 06:51 by MOY Childress) Father COPD (chronic obstructive pulmonary disease) Mother Hypertension Sister Fibromyalgia Social History (Updated 04/17/19 @ 19:46 by MOY Gonzalez) marital status: details: to Arnie household members: spouse and children lives independently: Yes caregiver/support person: No occupational status: unemployed Smoking Status: Never smoker alcohol intake: current substance use type: marijuana alcohol intake frequency: 0-2 drinks per day Substance Use Type: marijuana Exam Initial Vital Signs Initial Vital Signs: Vital Signs Temperature 97.5 F L 05/03/19 20:43 Pulse Rate 57 L 05/03/19 20:43 Respiratory Rate 12 05/03/19 20:43 Blood Pressure 112/73 05/03/19 20:43 Pulse Oximetry 98 05/03/19 20:43 GENERAL: Well-appearing, well-nourished and in no acute distress. HEENT: Head atraumatic,EOMI, pupils reactive, face symmetric, CARDIOVASCULAR: Regular rate and rhythm without murmurs, rubs or gallops. RESPIRATORY: Breath sounds equal bilaterally, no wheezes rales or rhonchi. ABDOMEN: Soft, nontender. Normoactive bowel sounds all 4 quadrants. No guarding or rebound. EXTREMITIES: Normal range of motion, no clubbing or edema. Neurovascularly intact NEUROLOGICAL: Alert and oriented x4.Normal gait and slightly slurred speech Cranial nerves II through XII grossly intact. Good [id number], good [id number], strength equal bilaterally, no dysarthria or aphasia, sensation in tact to soft touch bilaterally, no visual changes, no facial droop SKIN: Warm, dry, no laceration, no petechiae, no rashes or lesions. Course Orders Ordered: ED Orders 05/03/19 20:51 CT head/brain wo con Stat XR chest 1V Stat 05/03/19 21:05 Complete Blood Count AUTO DIFF Stat Comprehensive Metabolic Panel Stat Lipase Stat Troponin & CK Cardiac Panel Stat Discontinued Medications Aspirin (Aspirin Chew) 324 mg PO NOW ONE Stop: 05/03/19 20:52 Last Admin: 05/03/19 21:13 Dose: Not Given Documented by: TONY Sodium Chloride (Normal Saline 0.9%) 1,000 mls @ 1,000 mls/hr IV CONT YARI Last Infusion: 05/03/19 21:21 Dose: 0 mls/hr Documented by: Admin: 05/03/19 20:33 Dose: 1,000 mls/hr Documented by: TONY Vital Signs Vital signs: Vital Signs - 8 hr 05/03/19 20:43 05/03/19 22:13 Temperature 97.5 F L Pulse Rate 57 L 53 L Respiratory Rate 12 10 L Blood Pressure 112/73 Blood Pressure [Right Arm] 108/63 Pulse Oximetry 98 95 MDM - Dizziness Lab Data Attestation: I reviewed the patient's lab results. Result diagrams: 05/03/19 21:05 05/03/19 21:05 Labs: Lab Results 05/03/19 05/03/19 Range/Units 21:05 21:05 WBC 5.3 (4.5-11.0) X10^3/uL RBC 3.63 L (4.0-5.2) X10^6/uL Hgb 10.2 L (12.0-16.0) g/dL Hct 29.9 L (36-46) % MCV 82.3 (80-100) fL MCH 28.1 (26-34) PG MCHC 34.1 (30-36) % RDW 14.2 (11.6-14.8) % Plt Count 178 (150-400) X10^3/uL Neut % (Auto) 72.6 (50-75) % Lymph % (Auto) 18.4 L (25-40) % Assumption % (Auto) 7.8 (3-14) % Eos % (Auto) 1.0 L (2-4) % Baso % (Auto) 0.2 (0-2) % Neut # (Auto) 3900 (7593-4996) /uL Lymph # (Auto) 1000 L (6847-7080) /uL Assumption # (Auto) 400 (0-900) /uL Eos # (Auto) 100 (0-450) /uL Baso # (Auto) 0 (0-100) /uL Sodium 135 L (137-145) mmol/L Potassium 3.6 (3.4-5.1) mmol/L Chloride 102 (98-107) mmol/L Carbon Dioxide 28 (22-32) mmol/L BUN 17 (7-17) mg/dL Creatinine 0.80 (0.52-1.04) mg/dL Estimated GFR > 60.0 (>60) mL/min BUN/Creatinine Ratio 21.3 (6-22) Glucose 172 H (70-100) mg/dL Calcium 9.1 (8.4-10.2) mg/dL Total Bilirubin 0.4 (0.2-1.3) mg/dL AST 95 H (14-36) IU/L ALT 86 H (9-52) IU/L Alkaline Phosphatase 92 (38-126) U/L Total Creatine Kinase 179 H (30-135) U/L CK-MB (CK-2) 2.16 (<2.37) ng/mL CK-MB (CK-2) Rel Index 1.2 L (1.5-5.0) % Troponin I < 0.012 (0.01-0.034) ng/mL Total Protein 6.3 (6.3-8.2) g/dL Albumin 3.6 (3.5-5.0) g/dL Globulin 2.7 (1.7-4.1) g/dL Albumin/Globulin Ratio 1.3 (1.0-2.8) Lipase 134 (23-300) U/L Imaging Data CT scan - head: Radiologist's impression: PROCEDURE: CT HEAD/BRAIN WO CON INDICATIONS: lightheadeded slurring speech TECHNIQUE: Noncontrast 4.5 mm thick angled axial sections acquired from the foramen magnum to the vertex, with coronal and sagittal reformats. For radiation dose reduction, the following was used: automated exposure control, adjustment of mA and/or kV according to patient size. COMPARISON: None. FINDINGS: Image quality: Excellent. CSF spaces: Basal cisterns are patent. No extra-axial fluid collections. Ventricles are normal in size and shape. Brain: No midline shift. No intracranial masses or hemorrhage. Ruelas-white matter interface is normal. Skull and face: Calvarium and visualized facial bones are intact, without suspicious lesions. Sinuses: Visualized sinuses and mastoids are clear. IMPRESSION: Normal for age, source of current symptoms is not seen. Dictated by: Crow Angulo M.D. on 05/03/2019 at 21:37 Chest x-ray: Radiologist's impression: PROCEDURE: XR CHEST 1V INDICATIONS: lightheadeded slurring speech TECHNIQUE: One view of the chest was acquired. COMPARISON: None. FINDINGS: Surgical changes and devices: None. Lungs and pleura: Lungs are clear. No pleural effusions or pneumothorax. Mediastinum: Mediastinal contours appear normal. Heart size is normal. Bones and chest wall: No suspicious bony lesions. Overlying soft tissues appear unremarkable. IMPRESSION: Reduced inspiratory volume, asymmetric mild elevation of the right hemidiaphragm, no definite acute disease. Dictated by: Crow Angulo M.D. on 05/03/2019 at 21:3 ECG Data Attestation: I personally reviewed and interpreted this ECG as follows: Prior ECG tracings: available for review Interpretation: Normal sinus rhythm rate 57 p.r. interval [address] elevations T-wave inversion noted in lead 3 unchanged previous EKG. MDM Narrative Medical decision making narrative: Patient's blood pressure remained stable in the ED she required 1 L of fluid. She weeks was sleepy but had just taken all of her medications she is easily arousable and responding to questions. at bedside. Losartan should not cause significant decrease in blood pressure however in combination tall her other medications it may. It sounds as though she had a vasovagal reaction with significant hypotension which is now resolved. She has no focal deficits she is responding appropriately. I recommend they speak with her PCP in a and hold off taking losartan. I discussed all findings with the patient and , Education has been performed regarding treatment plan, diagnosis, warning signs and symptoms and all concerns have been addressed. Verbally agree with and understood all of the above. Discharge Plan Departure Patient Disposition: Home Clinical Impression: Vasovagal episode Discharge Date/Time: 05/03/19 22:45 Instructions: Fainting Activity Restrictions/Additional Instructions: *You have been diagnosed with vasovagal reaction *What to do: This may be due to medication losartan. It is a new medication. I strongly recommend that he call your PCP tomorrow to discuss this however until then I would hold off taking the medication any further. *Continue to take medications as directed *Follow up with your primary care provider in 2-3 days *Return to ER if you should have passing out, weakness, persistently low blood pressures or low blood sugar or any new, worsening or concerning symptoms Prescriptions: No Action mupirocin 2 % ointment 1 applic TOP TID Qty: 30 RF: 0 metoprolol succinate [Toprol XL] 100 MG tablet extended release 24 hr 100 mg PO DAILY Qty: 0 RF: 0 fenofibrate 160 MG tablet 160 mg PO DAILY Qty: 0 RF: 0 Lantus U-100 Insulin 100 UNIT/1 ML solution 60 unit SQ DAILY Qty: 0 RF: 0 Lantus U-100 Insulin 100 UNIT/1 ML solution 30 unit SQ QPM Qty: 0 RF: 0 Novolog U-100 Insulin aspart 100 UNIT/1 ML solution 10 - 25 unit SQ TIDAC Qty: 0 RF: 0 metoclopramide HCl [Reglan] 5 MG tablet 10 mg PO QID PRN (Reason: Nausea) Qty: 0 RF: 0 quetiapine [Seroquel] 400 MG tablet 800 mg PO BEDTIME Qty: 0 RF: 0 quetiapine [Seroquel] 100 MG tablet 100 mg PO TID PRN (Reason: episodes) Qty: 0 RF: 0 lorazepam 2 MG tablet 4 mg PO TID Qty: 0 RF: 0 atorvastatin 80 mg Tablet 80 mg PO DAILY RF: 0 methylphenidate HCl 10 mg tablet 10 mg PO QID RF: 0 buprenorphine-naloxone 2-0.5 mg Film 1 film BUCCAL DAILY RF: 0 omega-3 acid ethyl esters 1 gram Capsule 2 cap PO BID RF: 0 tizanidine 2 mg Tablet 2 mg PO Q8H PRN (Reason: Spasms) RF: 0 losartan 50 mg tablet 50 mg PO DAILY Qty: 30 RF: 0 fluoxetine 20 mg capsule 20 mg PO DAILY RF: 0 Referrals: Neftaly Tomlinson MD [Primary Care Provider] -
[2019-05-03 21:18] LABS: Add Manual Diff / Slide Review NO; Basophils Absolute Auto 0 /uL (0-100); Basophils Percent Auto 0.2 % (0-2); Eosinophils Absolute Auto 100 /uL (0-450); Hematocrit 29.9 % (36-46); Hemoglobin 10.2 g/dL (12.0-16.0); Lymphocytes Absolute Auto 1000 /uL (1100-4500); Lymphocytes Percent Auto 18.4 % (25-40); Mean Corpuscular HGB Conc 34.1 % (30-36); Mean Corpuscular Hemoglobin 28.1 PG (26-34); Mean Corpuscular Volume 82.3 fL (80-100); Monocytes Absolute Auto 400 /uL (0-900); Monocytes Percent Auto 7.8 % (3-14); Neutrophils Absolute Auto 3900 /uL (1500-7000); Neutrophils Percent Auto 72.6 % (50-75); Platelet Count 178 X10^3/uL (150-400); Red Blood Cell Count 3.63 X10^6/uL (4.0-5.2); Red Cell Distribution Width 14.2 % (11.6-14.8); White Blood Cell Count 5.3 X10^3/uL (4.5-11.0)
--- NOTE | 2019-05-03 21:24 | PC.NURSE ---
Jourdan states she recalls hearing her saying her name. State her speech and level of tiredness is normal for her as it is my normal bedtime Patient denies chest pain or SOB.
[2019-05-03 21:26] LABS: Alanine Aminotransferase 86 IU/L (9-52); Albumin 3.6 g/dL (3.5-5.0); Albumin Globulin Ratio 1.3 (1.0-2.8); Alkaline Phosphatase 92 U/L (38-126); Aspartate Aminotransferase 95 IU/L (14-36); BUN Creatinine Ratio 21.3 (6-22); Bilirubin Total 0.4 mg/dL (0.2-1.3); Blood Urea Nitrogen 17 mg/dL (7-17); Calcium 9.1 mg/dL (8.4-10.2); Carbon Dioxide 28 mmol/L (22-32); Chloride 102 mmol/L (98-107); Creatine Kinase 179 U/L (30-135); Estimated Glomerular Filt Rate > 60.0 mL/min (>60); Globulin 2.7 g/dL (1.7-4.1); Glucose 172 mg/dL (70-100); HEMOLYSIS < 15 (0-50); Lipase 134 U/L (23-300); Potassium 3.6 mmol/L (3.4-5.1); Sodium 135 mmol/L (137-145); Total Protein 6.3 g/dL (6.3-8.2)
[2019-05-03 21:37] LABS: Troponin I < 0.012 ng/mL (0.01-0.034)
[2019-05-03 21:41] LABS: CKMB % Relative Index 1.2 % (1.5-5.0); Creatine Kinase MB 2.16 ng/mL (<2.37)
[2019-05-03 22:13] VITALS: BP 108/63; PULSE 53; RESP 10; O2SAT 95
== END 2019-05-03 22:45 | disposition home or self-care (01) ==
PROVIDERS: Emergency Provider Emergency Medicine; Family Provider Internal Medicine; PCP Internal Medicine
DX: R55 Syncope and collapse (principal)
CPT/HCPCS: 36415; 70450; 71045; 80053; 82550; 82553; 83690; 84484; 85025; 93005; 96360; 99283; 99285

== ENCOUNTER → 2019-05-05 14:58 | Outpatient (CLI) | payer OTHER, SELFPAY ==
[2019-04-17 06:20] VITALS: BMI 30.8
[2019-05-05 16:05] LABS: BUN Creatinine Ratio 18.8 (6-22); Blood Urea Nitrogen 15 mg/dL (7-17); Calcium 10.3 mg/dL (8.4-10.2); Carbon Dioxide 28 mmol/L (22-32); Chloride 97 mmol/L (98-107); Estimated Glomerular Filt Rate > 60.0 mL/min (>60); Glucose 115 mg/dL (70-100); HEMOLYSIS < 15 (0-50); Potassium 4.7 mmol/L (3.4-5.1); Sodium 140 mmol/L (137-145)
== END ==
PROVIDERS: PCP Internal Medicine; Visit Provider Internal Medicine
DX: E11.9 Type 2 diabetes mellitus without complications (principal)
CPT/HCPCS: 36415; 80048

== ENCOUNTER → 2019-05-18 11:18 | Outpatient (CLI) | payer OTHER, SELFPAY ==
[2019-04-17 06:20] VITALS: BMI 30.8
[2019-05-18 12:25] LABS: Add Manual Diff / Slide Review NO; Basophils Absolute Auto 0 /uL (0-100); Basophils Percent Auto 0.3 % (0-2); Eosinophils Absolute Auto 100 /uL (0-450); Eosinophils Percent Auto 0.9 % (2-4); Hematocrit 37.7 % (36-46); Hemoglobin 12.9 g/dL (12.0-16.0); Lymphocytes Absolute Auto 1400 /uL (1100-4500); Mean Corpuscular HGB Conc 34.2 % (30-36); Mean Corpuscular Hemoglobin 28.3 PG (26-34); Mean Corpuscular Volume 82.7 fL (80-100); Monocytes Absolute Auto 400 /uL (0-900); Monocytes Percent Auto 6.6 % (3-14); Neutrophils Absolute Auto 4400 /uL (1500-7000); Neutrophils Percent Auto 70.2 % (50-75); Platelet Count 284 X10^3/uL (150-400); Red Blood Cell Count 4.56 X10^6/uL (4.0-5.2); Red Cell Distribution Width 14.5 % (11.6-14.8); White Blood Cell Count 6.3 X10^3/uL (4.5-11.0)
[2019-05-18 13:28] LABS: HEMOLYSIS < 15 (0-50); Iron 124 ug/dL (37-170)
[2019-05-18 13:38] LABS: Percent Iron Saturation 26 % (15-50); Total Iron Binding Capacity 485 ug/dL (265-497); Transferrin 408 mg/dL (206-381)
== END ==
LOC: RAD 11:23 → LAB 05-28 10:01
PROVIDERS: PCP Internal Medicine; Visit Provider Internal Medicine
DX: D64.9 Anemia, unspecified (principal)
CPT/HCPCS: 36415; 83540; 83550; 85025

== ENCOUNTER → 2019-05-30 13:46 | Outpatient (CLI) | payer OTHER, SELFPAY ==
[2019-04-17 06:20] VITALS: BMI 30.8
--- NOTE | 2019-05-30 | DI.MG.S_ITS ---
BILATERAL DIGITAL SCREENING MAMMOGRAM 3D/2D WITH CAD: 05/30/2019 CLINICAL: Routine screening. Comparison is made to exams dated: 04/27/2005 mammogram and 09/16/2014 mammogram - [facility]. There are scattered fibroglandular elements in both breasts. Current study was also evaluated with a Computer Aided Detection (CAD) system. No significant masses, calcifications, or other findings are seen in either breast. There has been no significant interval change. IMPRESSION: NEGATIVE There is no mammographic evidence of malignancy. A 1 year screening mammogram is recommended. This exam was interpreted at Station ID: [id number]. NOTE: For mammograms, a report in lay terms will be sent to the patient. Approximately 15% of breast malignancies will not be visualized mammographically. In the management of a palpable breast mass, a negative mammogram must not discourage biopsy of a clinically suspicious lesion. Electronically Signed By: Joey torrez/jonh:05/31/2019 13:15:34 letter sent: Normal Exam ACR BI-RADS Category 1: Negative [id number]
== END ==
PROVIDERS: PCP Internal Medicine; Visit Provider Internal Medicine
DX: Z12.31 Encounter for screening mammogram for malignant neoplasm of breast (principal)
CPT/HCPCS: 77063; 77067

== ENCOUNTER → 2019-06-10 18:46 | Outpatient (CLI) | payer OTHER, SELFPAY ==
[2019-04-17 06:20] VITALS: BMI 30.8
--- NOTE | 2019-06-10 18:48 | DI.RAD.S_ITS ---
PROCEDURE: XR KNEE RT 3V INDICATIONS: Pain, swelling, joint effusion, rule out fracture TECHNIQUE: 3 views of the knee were acquired. COMPARISON: None. FINDINGS: Bones: No fractures or dislocations. No suspicious bony lesions. Moderate degenerative joint disease. Subchondral sclerosis and scattered degenerative spurring. Soft tissues: Moderate joint effusion. No suspicious soft tissue calcifications. IMPRESSION: Moderate right knee joint degeneration. No fracture identified. If the patient's pain or other symptoms persist,consider further evaluation with MRI. Moderate joint effusion Dictated by: Isaac Ramsey M.D. on 06/10/2019 at 19:19 Approved by: Isaac Ramsey M.D. on 06/10/2019 at 19:20
== END ==
PROVIDERS: PCP Internal Medicine; Visit Provider Physician Assistant
DX: S89.91XA Unspecified injury of right lower leg, initial encounter (principal); M17.11 Unilateral primary osteoarthritis, right knee; M25.461 Effusion, right knee; X58.XXXA Exposure to other specified factors, initial encounter
CPT/HCPCS: 73562

== ENCOUNTER → 2019-07-07 13:16 | Outpatient (CLI) | payer OTHER, SELFPAY ==
[2019-04-17 06:20] VITALS: BMI 30.8
[2019-07-07 15:12] LABS: Alanine Aminotransferase 64 IU/L (<35); Albumin 4.9 g/dL (3.5-5.0); Albumin Globulin Ratio 1.5 (1.0-2.8); Alkaline Phosphatase 157 U/L (38-126); Aspartate Aminotransferase 74 IU/L (14-36); Bilirubin Total 0.7 mg/dL (0.2-1.3); Bilirubin Unconjugated 0.3 mg/dL (0.0-1.1); Globulin 3.3 g/dL (1.7-4.1); HEMOLYSIS < 15 (0-50); Total Protein 8.2 g/dL (6.3-8.2)
== END ==
PROVIDERS: PCP Internal Medicine; Visit Provider Internal Medicine
DX: R74.0 Nonspecific elevation of levels of transaminase and lactic acid dehydrogenase [LDH] (principal)
CPT/HCPCS: 36415; 80076

== ENCOUNTER 2019-09-09 15:18 | Inpatient (IN) | payer OTHER, SELFPAY ==
[2019-04-17 06:20] VITALS: BMI 30.8
[2019-09-09] VITALS (7 sets, daily range): BP systolic 138–189; BP diastolic 74–110; PULSE 66–96; RESP 15–20; TEMP 36.3–36.4; O2SAT 95–96; BMI 30.8
--- NOTE | 2019-09-09 15:48 | DI.US.S_ITS ---
PROCEDURE: US ABDOMEN LIMITED INDICATIONS: EPIGASRIC PAIN, HX CHOLECYSTECTOMY TECHNIQUE: Real-time focused scanning was performed of the abdomen, with image documentation. COMPARISON: None. FINDINGS: Liver has a heterogeneous echo pattern. No obvious masses. No dilated ducts. Gallbladder is surgically absent. Common duct measures 6.0 mm. Visualized portions of the pancreas are unremarkable. Minimal fluid adjacent to the liver. IMPRESSION: 1. Heterogeneous echo pattern of the liver with minimal fluid adjacent to the liver suggests possible cirrhotic change. 2. Remote cholecystectomy. No Comment: CT may be helpful. Dictated by: Messi Peace M.D. on 09/09/2019 at 17:34 Approved by: Messi Peace M.D. on 09/09/2019 at 17:39
[2019-09-09 16:01] LABS: Add Manual Diff / Slide Review NO; Basophils Absolute Auto 0 /uL (0-100); Basophils Percent Auto 0.4 % (0-2); Eosinophils Absolute Auto 100 /uL (0-450); Eosinophils Percent Auto 0.9 % (2-4); Hematocrit 37.3 % (36-46); Hemoglobin 12.9 g/dL (12.0-16.0); Lymphocytes Absolute Auto 1300 /uL (1100-4500); Lymphocytes Percent Auto 13.4 % (25-40); Mean Corpuscular HGB Conc 34.6 % (30-36); Mean Corpuscular Hemoglobin 28.3 PG (26-34); Mean Corpuscular Volume 81.9 fL (80-100); Monocytes Absolute Auto 500 /uL (0-900); Monocytes Percent Auto 5.6 % (3-14); Neutrophils Absolute Auto 7500 /uL (1500-7000); Neutrophils Percent Auto 79.7 % (50-75); Platelet Count 236 X10^3/uL (150-400); Red Blood Cell Count 4.55 X10^6/uL (4.0-5.2); Red Cell Distribution Width 14.5 % (11.6-14.8); White Blood Cell Count 9.4 X10^3/uL (4.5-11.0)
[2019-09-09] MEDS: PANTOPRAZOLE 40 MG VIAL IV (16:02)
[2019-09-09] MEDS: DICYCLOMINE 10 MG CAPSULE 20 MG PO (16:02)
[2019-09-09] MEDS: SODIUM CHLORIDE 0.9% 1,000 ML 150 ML IV ×2 (16:03→22:06)
[2019-09-09 16:13] LABS: Alanine Aminotransferase 128 IU/L (<35); Albumin 4.8 g/dL (3.5-5.0); Albumin Globulin Ratio 1.4 (1.0-2.8); Alkaline Phosphatase 133 U/L (38-126); Aspartate Aminotransferase 125 IU/L (14-36); Bilirubin Total 0.6 mg/dL (0.2-1.3); Blood Urea Nitrogen 21 mg/dL (7-17); Calcium 10.1 mg/dL (8.4-10.2); Carbon Dioxide 26 mmol/L (22-32); Chloride 101 mmol/L (98-107); Creatine Kinase 145 U/L (30-135); Estimated Glomerular Filt Rate > 60.0 mL/min (>60); Globulin 3.4 g/dL (1.7-4.1); Glucose 157 mg/dL (70-100); HEMOLYSIS < 15 (0-50); Potassium 4.1 mmol/L (3.4-5.1); Sodium 138 mmol/L (137-145); Total Protein 8.2 g/dL (6.3-8.2)
[2019-09-09 16:24] LABS: Troponin I < 0.012 ng/mL (0.01-0.034)
[2019-09-09 16:28] LABS: CKMB % Relative Index 1.6 % (1.5-5.0); Creatine Kinase MB 2.33 ng/mL (<2.37)
[2019-09-09 16:31] LABS: Lipase 13745 U/L (23-300)
--- NOTE | 2019-09-09 16:37 | ED_ITS ---
HPI - Abdominal Pain <MOY Crabtree - Last Filed: 09/09/19 22:28> General Chief Complaint: Abdominal Pain Stated Complaint: upper abd pain Time Seen by Provider: 09/09/19 15:31 Source: patient Mode of arrival: Ambulatory Limitations: no limitations History of Present Illness HPI narrative: This is a 54-year-old female, nonsmoker, presents to ED with significant other with chief complaint of epigastric pain and vomiting vomiting times once last night. Patient reports vomiting has been resolved after she had vomited food particle contents. Patient reports she has history of sphincter of shadi dysfunction and has history of pancreatitis x3 from high triglyceride, cholecystectomy, appendectomy, hysterectomy. She also has history of type 2 diabetes, hypertension. Patient also takes Suboxone for chronic back pain and currently trying to wean herself from this medication. She was prescribed with Bentyl in the past this medication is so she had not taken. She denies fever, chills, nausea at this time. She had food intake today which stay down so far. Patient reports pain is a sharp and cramping like and pretty constant and rates as 8/10 pain. Patient reports patient increases with laying supine position and better with sitting up but just hurts. Patient also reports right ear discomfort and feels like water in her ear stating she swims. Related Data Home Medications Medication Instructions Recorded Confirmed Lantus U-100 Insulin 30 unit SQ QPM #0 09/19/17 09/09/19 Lantus U-100 Insulin 50 unit SQ DAILY #0 09/19/17 09/09/19 fenofibrate 160 mg PO DAILY #0 09/19/17 09/09/19 insulin aspart U-100 [Novolog 10 - 25 unit SQ TIDAC #0 09/19/17 09/09/19 U-100 Insulin aspart] lorazepam 4 mg PO TID #0 09/19/17 09/09/19 metoclopramide HCl [Reglan] 10 mg PO QID PRN #0 09/19/17 09/09/19 metoprolol succinate [Toprol XL] 100 mg PO DAILY #0 09/19/17 09/09/19 quetiapine [Seroquel] 100 mg PO TID PRN #0 09/19/17 09/09/19 quetiapine [Seroquel] 800 mg PO BEDTIME #0 09/19/17 09/09/19 fluoxetine 20 mg capsule 20 mg PO DAILY 10/10/18 09/09/19 atorvastatin 80 mg PO DAILY 04/17/19 09/09/19 methylphenidate HCl 10 mg PO QID 04/17/19 09/09/19 omega-3 acid ethyl esters 2 cap PO BID 04/17/19 09/09/19 tizanidine 2 mg PO Q8H PRN 04/17/19 09/09/19 Previous Rx's Medication Instructions Recorded losartan 50 mg PO DAILY #30 tab 04/18/19 Allergies Allergy/AdvReac Type Severity Reaction Status Date / Time No Known Drug Allergies Allergy Verified 06/10/19 18:15 Review of Systems <MOY Crabtree - Last Filed: 09/09/19 22:28> Review of Systems Narrative: General: Denies fever, chills, fatigue, malaise, sweats. HEENT: Denies sinus pain, (+) right ear pain, sore throat, difficulty swallowing, dizziness. Respiratory: Denies dyspnea, cough, wheezing, hemoptysis, sputum. Cardiovascular: Denies chest pain, palpitations, orthopnea, edema. Gastrointestinal: See HPI : Denies dysuria, frequency, incontinence, hematuria, urinary retention. Musculoskeletal: Denies weakness, joint pain or bony pain. Skin: Denies rash, skin lesions, or other. Neurologic: Denies weakness, headache, numbness, change in speech, confusion, seizures, incoordination. Psychiatric: No concerning psychosocial issues. 12-point review of systems is negative except for those stated above. Patient History <MOY Crabtree - Last Filed: 09/09/19 22:28> Medical History Anxiety (Chronic) Arthritis (Acute) Bipolar 1 disorder (Chronic) History of pancreatitis (Resolved) History of pulmonary embolism (Acute) Hypercholesterolemia with hypertriglyceridemia (Chronic) Hypersomnia (Chronic) Hypertension (Chronic) Major depressive disorder (Chronic) Neuropathy, diabetic (Acute) Nonalcoholic steatohepatitis (HERRING) (Chronic) Obesity (Chronic) Obstructive sleep apnea of adult (Chronic) Renal insufficiency (Acute) Snoring (Inactive) Type 2 diabetes mellitus (Chronic) Surgical History Gastrocnemius equinus of right lower extremity (Acute) Family History Father COPD (chronic obstructive pulmonary disease) Mother Hypertension Sister Fibromyalgia Social History marital status: details: to Arnie household members: spouse and children lives independently: Yes caregiver/support person: No occupational status: unemployed Smoking Status: Never smoker alcohol intake: current substance use type: marijuana Smoking Status: Never smoker alcohol intake frequency: 0-2 drinks per day Substance Use Type: marijuana Exam <MOY Crabtree - Last Filed: 09/09/19 22:28> Narrative Exam Narrative: GEN: Alert, oriented x 3, well appearing and nourished, and in no acute distress. Head: Normal cephalic, atraumatic. No scalp or temporal tenderness, palpable mass or rash. EYES: Pupils are equal, round, and reactive to light and accommodation. Extraocular muscles are intact bilaterally. There is no subconjunctival hemorrhage, exudate and sclera non-icteric. ENT: R ear canal erythematous without purulent discharge. Right tympanic membrane dull and erythematous. Hearing grossly intact. Nose without bleeding, purulent discharge or deviation. Facial sinuses nontender to palpate. Mucous membrane moist, no mucosal lesion. Throat without erythema, tonsillar hy pertrophy or exudate. Uvula in midline, airway patent. Neck: Trachea in midline. No JVD, non-tender without lymphadenopathy. No masses or thyroid megaly. Supple, non-tender and no meningeal signs. CARDIAC: Normal regular rate and rhythm without murmurs, gallops, or rubs. No chest wall tenderness. No peripheral edema, cyanosis or pallor. Capillary refill is less than 2 seconds. RESPIRATORY: Lungs are clear to auscultate bilaterally. No cough, wheezes, rales, or rhonchi. No stridor, respiratory distress, increase work of breathing, or accessary muscle used. ABD: Abdomen soft, tender to palpate in epigastric region without distension. Positive Padilla's sign. No guarding or rebound tenderness to palpate. Bowel sounds are normal in all 4 quadrants. There is no palpable masses or organomegaly. EXT: Full painless ROM of all extremities with no loss of sensation, strength, effusion or edema. SKIN: Warm, dry, normal color for patient. No erythema, lesions or rash over visible areas. BACK: Nontender without deformity or crepitance. No flank tenderness. NEUROLOGICAL: Alert and oriented to place, time and person. Sensation and motor function intact bilaterally. No facial droops, dysphasia. PSYCHIATRIC: Good judgement and reason, without hallucinations, abnormal affect or abnormal behaviors during the examination. Patient is not suicidal. Initial Vital Signs Initial Vital Signs: Vital Signs Pulse Rate 75 09/09/19 15:35 Respiratory Rate 16 09/09/19 15:35 Blood Pressure 188/110 H 09/09/19 15:35 <Matti Ledesma DO - Last Filed: 09/10/19 08:54> Initial Vital Signs Initial Vital Signs: Vital Signs Pulse Rate 75 09/09/19 15:35 Respiratory Rate 16 09/09/19 15:35 Blood Pressure 188/110 H 09/09/19 15:35 Scores <MOY Crabtree - Last Filed: 09/09/19 22:28> GCS Trupti coma scale eye opening: Spontaneous Trupti coma scale verbal response: Orientated Trupti coma scale motor response: Obey commands Trupti coma scale total score: 15 Course <MOY Crabtree - Last Filed: 09/09/19 22:28> Orders Ordered: Atorvastatin Calcium (Lipitor) 80 mg PO DAILY YARI Bisacodyl (Dulcolax) 10 mg [place] DAILY PRN PRN Reason: Constipation Dextrose (D50w) 25 gm IV PRN PRN; Protocol PRN Reason: Hypoglycemia Enoxaparin Sodium (Lovenox) 40 mg SUBCUT DAILY YARI Fenofibrate (Triglide) 160 mg PO DAILY YARI Fluoxetine HCl (Prozac) 20 mg PO DAILY Y[facility] Hydromorphone HCl (Dilaudid) 1 mg IV Q3H PRN PRN Reason: Pain, Severe (7-10) Last Admin: 09/10/19 06:40 Dose: 1 mg Documented by: Admin: 09/10/19 03:40 Dose: 1 mg Documented by: Admin: 09/09/19 22:07 Dose: 1 mg Documented by: TOMÁS Sodium Chloride (Normal Saline 0.9%) 1,000 mls @ 150 mls/hr IV CONT YARI Last Admin: 09/10/19 04:50 Dose: 150 mls/hr Documented by: Infusion: 09/10/19 04:47 Dose: 150 mls/hr Documented by: Admin: 09/09/19 22:06 Dose: 150 mls/hr Documented by: TOMÁS Ceftriaxone Sodium/Dextrose (Rocephin) 1 gm in 50 mls @ 100 mls/hr IV Q24H [facility] Stop: 09/11/19 21:29 Insulin Aspart (Novolog Flexpen) 0 unit SUBCUT Q6H [facility]; Protocol Last Admin: 09/10/19 06:29 Dose: Not Given Documented by: SONNY Ketorolac Tromethamine (Toradol) 15 mg IV Q6H [facility] Stop: 09/15/19 05:58 Last Admin: 09/10/19 06:41 Dose: 15 mg Documented by: SONNY Losartan Potassium (Cozaar) 50 mg PO DAILY [facility] Metoprolol Succinate (Toprol Xl) 100 mg PO DAILY [facility] Naloxone HCl (Narcan) 0.2 mg IV Q2MIN PRN PRN Reason: Opiate Reversal Ondansetron HCl (Zofran) 4 mg IV Q6HR PRN PRN Reason: Nausea And Vomiting Last Admin: 09/10/19 03:45 Dose: 4 mg Documented by: SONNY Quetiapine Fumarate (Seroquel) 400 mg PO BEDTIME [facility] Discontinued Medications Dicyclomine HCl (Bentyl) 20 mg PO NOW ONE Stop: 09/09/19 15:45 Last Admin: 09/09/19 16:02 Dose: 20 mg Documented by: BTONER Hydromorphone HCl (Dilaudid) 1 mg IV NOW ONE Stop: 09/09/19 16:49 Last Admin: 09/09/19 17:00 Dose: 1 mg Documented by: RSTONE Hydromorphone HCl (Dilaudid) 1 mg IV NOW ONE Stop: 09/09/19 18:11 Last Admin: 09/09/19 18:20 Dose: 1 mg Documented by: KSCHERE Hydromorphone HCl (Dilaudid) 1 mg IV NOW ONE Stop: 09/09/19 19:40 Last Admin: 09/09/19 19:47 Dose: 1 mg Documented by: MMCFARL Sodium Chloride (Normal Saline 0.9%) 1,000 mls @ 150 mls/hr IV CONT [facility] Last Admin: 09/09/19 16:03 Dose: 150 mls/hr Documented by: OSIRIS Ceftriaxone Sodium/Dextrose (Rocephin) 1 gm in 50 mls @ 100 mls/hr IV NOW ONE Stop: 09/09/19 20:34 Last Admin: 09/09/19 20:54 Dose: 100 mls/hr Documented by: TOMÁS Insulin Aspart (Novolog Flexpen) 0 unit SUBCUT Q6H [facility]; Protocol Last Admin: 09/10/19 02:30 Dose: Not Given Documented by: Admin: 09/09/19 22:30 Dose: Not Given Documented by: TOMÁS Ketorolac Tromethamine (Toradol) 30 mg IV NOW ONE Stop: 09/09/19 21:02 Last Admin: 09/09/19 22:07 Dose: 30 mg Documented by: TOMÁS Losartan Potassium (Cozaar) 100 mg PO DAILY [facility] Losartan Potassium (Cozaar) 50 mg PO NOW ONE Stop: 09/09/19 21:17 Last Admin: 09/09/19 22:54 Dose: 50 mg Documented by: TOMÁS Ondansetron HCl (Zofran) 4 mg IV NOW ONE Stop: 09/09/19 16:49 Last Admin: 09/09/19 16:59 Dose: 4 mg Documented by: CHARLENE Pantoprazole Sodium (Protonix) 40 mg IV NOW ONE Stop: 09/09/19 15:45 Last Admin: 09/09/19 16:02 Dose: 40 mg Documented by: OSIRIS Quetiapine Fumarate (Seroquel) 800 mg PO BEDTIME [facility] Last Admin: 09/09/19 22:52 Dose: Not Given Documented by: TOMÁS Vital Signs Vital signs: Vital Signs - 8 hr 09/09/19 15:35 09/09/19 15:45 09/09/19 17:47 Temperature 97.4 F L Pulse Rate 68 Pulse Rate [Left] 75 Respiratory Rate 16 15 Blood Pressure [Left Arm] 188/110 H 138/75 Pulse Oximetry 95 09/09/19 19:36 Temperature Pulse Rate 72 Pulse Rate [Left] Respiratory Rate Blood Pressure [Left Arm] 178/101 H Pulse Oximetry <Matti Ledesma DO - Last Filed: 09/10/19 08:54> Orders Ordered: Atorvastatin Calcium (Lipitor) 80 mg PO DAILY [facility] Bisacodyl (Dulcolax) 10 mg [place] DAILY PRN PRN Reason: Constipation Dextrose (D50w) 25 gm IV PRN PRN; Protocol PRN Reason: Hypoglycemia Enoxaparin Sodium (Lovenox) 40 mg SUBCUT DAILY [facility] Fenofibrate (Triglide) 160 mg PO DAILY [facility] Fluoxetine HCl (Prozac) 20 mg PO DAILY [facility] Hydromorphone HCl (Dilaudid) 1 mg IV Q3H PRN PRN Reason: Pain, Severe (7-10) Last Admin: 09/10/19 06:40 Dose: 1 mg Documented by: Admin: 09/10/19 03:40 Dose: 1 mg Documented by: Admin: 09/09/19 22:07 Dose: 1 mg Documented by: TOMÁS Sodium Chloride (Normal Saline 0.9%) 1,000 mls @ 150 mls/hr IV CONT [facility] Last Admin: 09/10/19 04:50 Dose: 150 mls/hr Documented by: Infusion: 09/10/19 04:47 Dose: 150 mls/hr Documented by: Admin: 09/09/19 22:06 Dose: 150 mls/hr Documented by: TOMÁS Ceftriaxone Sodium/Dextrose (Rocephin) 1 gm in 50 mls @ 100 mls/hr IV Q24H [facility] Stop: 09/11/19 21:29 Insulin Aspart (Novolog Flexpen) 0 unit SUBCUT Q6H [facility]; Protocol Last Admin: 09/10/19 06:29 Dose: Not Given Documented by: SONNY Ketorolac Tromethamine (Toradol) 15 mg IV Q6H [facility] Stop: 09/15/19 05:58 Last Admin: 09/10/19 06:41 Dose: 15 mg Documented by: OSNNY Losartan Potassium (Cozaar) 50 mg PO DAILY [facility] Metoprolol Succinate (Toprol Xl) 100 mg PO DAILY [facility] Naloxone HCl (Narcan) 0.2 mg IV Q2MIN PRN PRN Reason: Opiate Reversal Ondansetron HCl (Zofran) 4 mg IV Q6HR PRN PRN Reason: Nausea And Vomiting Last Admin: 09/10/19 03:45 Dose: 4 mg Documented by: RLAZANI Quetiapine Fumarate (Seroquel) 400 mg PO BEDTIME [facility] Discontinued Medications Dicyclomine HCl (Bentyl) 20 mg PO NOW ONE Stop: 09/09/19 15:45 Last Admin: 09/09/19 16:02 Dose: 20 mg Documented by: OSIRIS Hydromorphone HCl (Dilaudid) 1 mg IV NOW ONE Stop: 09/09/19 16:49 Last Admin: 09/09/19 17:00 Dose: 1 mg Documented by: CHARLENE Hydromorphone HCl (Dilaudid) 1 mg IV NOW ONE Stop: 09/09/19 18:11 Last Admin: 09/09/19 18:20 Dose: 1 mg Documented by: ROSANA Hydromorphone HCl (Dilaudid) 1 mg IV NOW ONE Stop: 09/09/19 19:40 Last Admin: 09/09/19 19:47 Dose: 1 mg Documented by: RENUFARDon Sodium Chloride (Normal Saline 0.9%) 1,000 mls @ 150 mls/hr IV CONT YARI Last Admin: 09/09/19 16:03 Dose: 150 mls/hr Documented by: OSIRIS Ceftriaxone Sodium/Dextrose (Rocephin) 1 gm in 50 mls @ 100 mls/hr IV NOW ONE Stop: 09/09/19 20:34 Last Admin: 09/09/19 20:54 Dose: 100 mls/hr Documented by: TOMÁS Insulin Aspart (Novolog Flexpen) 0 unit SUBCUT Q6H [facility]; Protocol Last Admin: 09/10/19 02:30 Dose: Not Given Documented by: Admin: 09/09/19 22:30 Dose: Not Given Documented by: TOMÁS Ketorolac Tromethamine (Toradol) 30 mg IV NOW ONE Stop: 09/09/19 21:02 Last Admin: 09/09/19 22:07 Dose: 30 mg Documented by: TOMÁS Losartan Potassium (Cozaar) 100 mg PO DAILY [facility] Losartan Potassium (Cozaar) 50 mg PO NOW ONE Stop: 09/09/19 21:17 Last Admin: 09/09/19 22:54 Dose: 50 mg Documented by: TOMÁS Ondansetron HCl (Zofran) 4 mg IV NOW ONE Stop: 09/09/19 16:49 Last Admin: 09/09/19 16:59 Dose: 4 mg Documented by: CHARLENE Pantoprazole Sodium (Protonix) 40 mg IV NOW ONE Stop: 09/09/19 15:45 Last Admin: 09/09/19 16:02 Dose: 40 mg Documented by: OSIRIS Quetiapine Fumarate (Seroquel) 800 mg PO BEDTIME [facility] Last Admin: 09/09/19 22:52 Dose: Not Given Documented by: TOMÁS Vital Signs Vital signs: Vital Signs - 8 hr 09/09/19 15:35 09/09/19 15:45 09/09/19 17:47 Temperature 97.4 F L Pulse Rate 68 Pulse Rate [Left] 75 Respiratory Rate 16 15 Blood Pressure [Left Arm] 188/110 H 138/75 Pulse Oximetry 95 09/09/19 19:36 Temperature Pulse Rate 72 Pulse Rate [Left] Respiratory Rate Blood Pressure [Left Arm] 178/101 H Pulse Oximetry MDM - Abdominal Pain <Liam MOY Haney - Last Filed: 09/09/19 22:28> Differential Diagnosis Differential diagnosis: Likely pancreatitis, small bowel obstruction and other (chledocholithiasis) Medical Records Attestation: I reviewed the patient's medical records. Lab Data Attestation: I reviewed the patient's lab results. Result diagrams: 09/10/19 05:25 09/10/19 05:25 Labs: Lab Results 09/09/19 09/09/19 09/09/19 Range/Units 15:55 15:55 15:55 WBC 9.4 (4.5-11.0) X10^3/uL RBC 4.55 (4.0-5.2) X10^6/uL Hgb 12.9 (12.0-16.0) g/dL Hct 37.3 (36-46) % MCV 81.9 (80-100) fL MCH 28.3 (26-34) PG MCHC 34.6 (30-36) % RDW 14.5 (11.6-14.8) % Plt Count 236 (150-400) X10^3/uL Neut % (Auto) 79.7 H (50-75) % Lymph % (Auto) 13.4 L (25-40) % [place] % (Auto) 5.6 (3-14) % Eos % (Auto) 0.9 L (2-4) % Baso % (Auto) 0.4 (0-2) % Neut # (Auto) 7500 H (0285-9541) /uL Lymph # (Auto) 1300 (4608-9523) /uL [place] # (Auto) 500 (0-900) /uL Eos # (Auto) 100 (0-450) /uL Baso # (Auto) 0 (0-100) /uL Sodium 138 (137-145) mmol/L Potassium 4.1 (3.4-5.1) mmol/L Chloride 101 (98-107) mmol/L Carbon Dioxide 26 (22-32) mmol/L BUN 21 H (7-17) mg/dL Creatinine 0.70 (0.52-1.04) mg/dL Estimated GFR > 60.0 (>60) mL/min BUN/Creatinine Ratio 30.0 H (6-22) Glucose 157 H (70-100) mg/dL Hemoglobin A1c (4.0-6.0) % Calcium 10.1 (8.4-10.2) mg/dL Magnesium (1.6-2.3) mg/dL Total Bilirubin 0.6 (0.2-1.3) mg/dL AST 125 H (14-36) IU/L ALT 128 H (<35) IU/L Alkaline Phosphatase 133 H (38-126) U/L Total Creatine Kinase 145 H (30-135) U/L CK-MB (CK-2) 2.33 (<2.37) ng/mL CK-MB (CK-2) Rel Index 1.6 (1.5-5.0) % Troponin I < 0.012 (0.01-0.034) ng/mL Total Protein 8.2 (6.3-8.2) g/dL Albumin 4.8 (3.5-5.0) g/dL Globulin 3.4 (1.7-4.1) g/dL Albumin/Globulin Ratio 1.4 (1.0-2.8) Triglycerides 234 H (35-150) mg/dL Cholesterol 235 H (140-199) mg/dL LDL Cholesterol, Calc 119 H (<100) mg/dL HDL Cholesterol 69 H (40-60) mg/dL Lipase 07109 H (23-300) U/L Urine RBC (0-5/HPF) Urine WBC (0-5/HPF) Ur Squamous Epith Cells (0-5/HPF) Ur Transition Epith Cell (0-5/HPF) Urine Bacteria (None) Ur Culture Indicated? 09/09/19 09/09/19 09/09/19 Range/Units 15:55 15:58 18:25 WBC (4.5-11.0) X10^3/uL RBC (4.0-5.2) X10^6/uL Hgb (12.0-16.0) g/dL Hct (36-46) % MCV (80-100) fL MCH (26-34) PG MCHC (30-36) % RDW (11.6-14.8) % Plt Count (150-400) X10^3/uL Neut % (Auto) (50-75) % Lymph % (Auto) (25-40) % [place] % (Auto) (3-14) % Eos % (Auto) (2-4) % Baso % (Auto) (0-2) % Neut # (Auto) (2472-6615) /uL Lymph # (Auto) (3798-1411) /uL [place] # (Auto) (0-900) /uL Eos # (Auto) (0-450) /uL Baso # (Auto) (0-100) /uL Sodium (137-145) mmol/L Potassium (3.4-5.1) mmol/L Chloride (98-107) mmol/L Carbon Dioxide (22-32) mmol/L BUN (7-17) mg/dL Creatinine (0.52-1.04) mg/dL Estimated GFR (>60) mL/min BUN/Creatinine Ratio (6-22) Glucose (70-100) mg/dL Hemoglobin A1c 7.1 H (4.0-6.0) % Calcium (8.4-10.2) mg/dL Magnesium 1.9 (1.6-2.3) mg/dL Total Bilirubin (0.2-1.3) mg/dL AST (14-36) IU/L ALT (<35) IU/L Alkaline Phosphatase (38-126) U/L Total Creatine Kinase (30-135) U/L CK-MB (CK-2) (<2.37) ng/mL CK-MB (CK-2) Rel Index (1.5-5.0) % Troponin I (0.01-0.034) ng/mL Total Protein (6.3-8.2) g/dL Albumin (3.5-5.0) g/dL Globulin (1.7-4.1) g/dL Albumin/Globulin Ratio (1.0-2.8) Triglycerides (35-150) mg/dL Cholesterol (140-199) mg/dL LDL Cholesterol, Calc (<100) mg/dL HDL Cholesterol (40-60) mg/dL Lipase (23-300) U/L Urine RBC 5-10/hpf H (0-5/HPF) Urine WBC 5-10/hpf H (0-5/HPF) Ur Squamous Epith Cells 1-5 /hpf (0-5/HPF) Ur Transition Epith Cell 1-5/hpf (0-5/HPF) Urine Bacteria Many (>30) H (None) Ur Culture Indicated? Specimen cultured Point of care testing: Urine Dip Bedside Urine Glucose Negative Bedside Urine Bilirubin - Negative Bedside Urine Ketone +/- 5 Urine Specific [place] 1.020 Bedside Urine Occult Blood +/- Bedside Urine pH 6.0 Bedside Urine Protein +/- 15 Bedside Urine Urobilinogen +/- 1mg Bedside Urine Nitrite + Positive Bedside Urine Leukocytes +/- 15 Esterase Imaging Data US - abdomen: Radiologist's Impression: [place] [id number] Ultrasound Report Signed Patient: Sheela Brown [facility]#: [id number] : 1965Acct:[id number] Age/Sex: 54 / FDate of Service: 09/09/19 Loc: ED Accession Number: [id number] Procedure: US abdomen limited Ordering Provider: Liam Haney PROCEDURE: US ABDOMEN LIMITED INDICATIONS: EPIGASRIC PAIN, HX CHOLECYSTECTOMY TECHNIQUE: Real-time focused scanning was performed of the abdomen, with image documentation. COMPARISON: None. FINDINGS: Liver has a heterogeneous echo pattern. No obvious masses. No dilated ducts. Gallbladder is surgically absent. Common duct measures 6.0 mm. Visualized portions of the pancreas are unremarkable. Minimal fluid adjacent to the liver. IMPRESSION: 1. Heterogeneous echo pattern of the liver with minimal fluid adjacent to the liver suggests possible cirrhotic change. 2. Remote cholecystectomy. No Comment: CT may be helpful. Dictated by: Messi Peace M.D. on 09/09/2019 at 17:34 Approved by: Messi Peace M.D. on 09/09/2019 at 17:39 ECG Data Attestation: I personally reviewed and interpreted this ECG as follows: Prior ECG tracings: available for review Interpretation: Sinus rhythm rate at 72. Normal [place]. [place] int 160, QRS dur 101, QT/QTC 365/[address] elevation or depression. No significant changes from previous EKG except rate-57 in the pas MDM Narrative Medical decision making narrative: This is 54 year female who presents to ED with epigastric pain and nausea and vomiting during last night. Patient reports previous pancreatitis 3 times due to high triglyceride and surgical history of cholecystectomy, appendectomy, hysterectomy, diabetes type 2 using insulins. Patient currently takes [place] 3 and Fenofibrate but she reports skipped a couple of doses. Patient takes Suboxone for chronic back pain and is currently try to wean herself. Patient denies constitutional symptoms. Patient is afebrile without tachycardia with elevated blood pressure. There is no leukocytosis today with mildly elevated neutrophils. There was significantly elevated lipase of 13,745 today. The rest of chemistry indicates mild dehydration as evidenced by increased BUN of 21 and BUN/Cr ratio of 30. Glucose was 157. Liver function tests were elevated. AST of 125, ALT of 128, Alk phosphatase of 133 and mildly elevated Total CK of 145. Cardiac enzyme is were negative for troponin and CK- MB. Ultrasound in upper abdomen shows heterogeneous echo pattern of the liver with minimal fluid [place] to the liver suggesting possible cirrhotic changes without obvious masses or dilated ducts. Visualized portions of the pancreas was unremarkable. Dr. Nj has consulted for the acute pancreatitis and pain management and IV hydration. It was requested go ahead adding blood cultures, lipid panel and CT of abdomen and pelvis. Test shows acute pancreatitis with out evidence of pancreatic necrosis. There was no free air, fluid or abscess cavity. Patient probably has cirrhosis. There is also mild the intrahepatic biliary doctor dilatation with borderline splenomegaly. Lipid panel indicates mildly elevated triglycerides of 234, cholesterol of 235, LDL of 119 with HDL of 69. Patient was kindly accepted by hospitalist for continuation of care. <Matti Ledesma DO - Last Filed: 09/10/19 08:54> Lab Data Labs: Lab Results 09/09/19 09/09/19 09/09/19 Range/Units 15:55 15:55 15:55 WBC 9.4 (4.5-11.0) X10^3/uL RBC 4.55 (4.0-5.2) X10^6/uL Hgb 12.9 (12.0-16.0) g/dL Hct 37.3 (36-46) % MCV 81.9 (80-100) fL MCH 28.3 (26-34) PG MCHC 34.6 (30-36) % RDW 14.5 (11.6-14.8) % Plt Count 236 (150-400) X10^3/uL Neut % (Auto) 79.7 H (50-75) % Lymph % (Auto) 13.4 L (25-40) % [place] % (Auto) 5.6 (3-14) % Eos % (Auto) 0.9 L (2-4) % Baso % (Auto) 0.4 (0-2) % Neut # (Auto) 7500 H (0011-0793) /uL Lymph # (Auto) 1300 (0957-4504) /uL [place] # (Auto) 500 (0-900) /uL Eos # (Auto) 100 (0-450) /uL Baso # (Auto) 0 (0-100) /uL Sodium 138 (137-145) mmol/L Potassium 4.1 (3.4-5.1) mmol/L Chloride 101 (98-107) mmol/L Carbon Dioxide 26 (22-32) mmol/L BUN 21 H (7-17) mg/dL Creatinine 0.70 (0.52-1.04) mg/dL Estimated GFR > 60.0 (>60) mL/min BUN/Creatinine Ratio 30.0 H (6-22) Glucose 157 H (70-100) mg/dL Hemoglobin A1c (4.0-6.0) % Calcium 10.1 (8.4-10.2) mg/dL Magnesium (1.6-2.3) mg/dL Total Bilirubin 0.6 (0.2-1.3) mg/dL AST 125 H (14-36) IU/L ALT 128 H (<35) IU/L Alkaline Phosphatase 133 H (38-126) U/L Total Creatine Kinase 145 H (30-135) U/L CK-MB (CK-2) 2.33 (<2.37) ng/mL CK-MB (CK-2) Rel Index 1.6 (1.5-5.0) % Troponin I < 0.012 (0.01-0.034) ng/mL Total Protein 8.2 (6.3-8.2) g/dL Albumin 4.8 (3.5-5.0) g/dL Globulin 3.4 (1.7-4.1) g/dL Albumin/Globulin Ratio 1.4 (1.0-2.8) Triglycerides 234 H (35-150) mg/dL Cholesterol 235 H (140-199) mg/dL LDL Cholesterol, Calc 119 H (<100) mg/dL HDL Cholesterol 69 H (40-60) mg/dL Lipase 47733 H (23-300) U/L Urine RBC (0-5/HPF) Urine WBC (0-5/HPF) Ur Squamous Epith Cells (0-5/HPF) Ur Transition Epith Cell (0-5/HPF) Urine Bacteria (None) Ur Culture Indicated? 09/09/19 09/09/19 09/09/19 Range/Units 15:55 15:58 18:25 WBC (4.5-11.0) X10^3/uL RBC (4.0-5.2) X10^6/uL Hgb (12.0-16.0) g/dL Hct (36-46) % MCV (80-100) fL MCH (26-34) PG MCHC (30-36) % RDW (11.6-14.8) % Plt Count (150-400) X10^3/uL Neut % (Auto) (50-75) % Lymph % (Auto) (25-40) % [place] % (Auto) (3-14) % Eos % (Auto) (2-4) % Baso % (Auto) (0-2) % Neut # (Auto) (1838-6527) /uL Lymph # (Auto) (0203-4118) /uL [place] # (Auto) (0-900) /uL Eos # (Auto) (0-450) /uL Baso # (Auto) (0-100) /uL Sodium (137-145) mmol/L Potassium (3.4-5.1) mmol/L Chloride (98-107) mmol/L Carbon Dioxide (22-32) mmol/L BUN (7-17) mg/dL Creatinine (0.52-1.04) mg/dL Estimated GFR (>60) mL/min BUN/Creatinine Ratio (6-22) Glucose (70-100) mg/dL Hemoglobin A1c 7.1 H (4.0-6.0) % Calcium (8.4-10.2) mg/dL Magnesium 1.9 (1.6-2.3) mg/dL Total Bilirubin (0.2-1.3) mg/dL AST (14-36) IU/L ALT (<35) IU/L Alkaline Phosphatase (38-126) U/L Total Creatine Kinase (30-135) U/L CK-MB (CK-2) (<2.37) ng/mL CK-MB (CK-2) Rel Index (1.5-5.0) % Troponin I (0.01-0.034) ng/mL Total Protein (6.3-8.2) g/dL Albumin (3.5-5.0) g/dL Globulin (1.7-4.1) g/dL Albumin/Globulin Ratio (1.0-2.8) Triglycerides (35-150) mg/dL Cholesterol (140-199) mg/dL LDL Cholesterol, Calc (<100) mg/dL HDL Cholesterol (40-60) mg/dL Lipase (23-300) U/L Urine RBC 5-10/hpf H (0-5/HPF) Urine WBC 5-10/hpf H (0-5/HPF) Ur Squamous Epith Cells 1-5 /hpf (0-5/HPF) Ur Transition Epith Cell 1-5/hpf (0-5/HPF) Urine Bacteria Many (>30) H (None) Ur Culture Indicated? Specimen cultured Point of care testing: Urine Dip Bedside Urine Glucose Negative Bedside Urine Bilirubin - Negative Bedside Urine Ketone +/- 5 Urine Specific [place] 1.020 Bedside Urine Occult Blood +/- Bedside Urine pH 6.0 Bedside Urine Protein +/- 15 Bedside Urine Urobilinogen +/- 1mg Bedside Urine Nitrite + Positive Bedside Urine Leukocytes +/- 15 Esterase Discharge Plan Departure Patient Disposition: Admitted As Inpatient Clinical Impression: Acute infection of right ear Acute pancreatitis Qualifiers: Pancreatitis type: unspecified pancreatitis type Acute pancreatitis complication: no infection or necrosis Qualified Code(s): Mara85.90 - Acute pancreatitis without necrosis or infection, unspecified Discharge Date/Time: 09/09/19 20:05 Admit Date/Time: 09/09/19 20:17 Admit Provider: [facility]
[2019-09-09] MEDS: ONDANSETRON 4 MG/2 ML INJ IV (16:59)
[2019-09-09] MEDS: HYDROMORPHONE 1 MG INJ IV ×4 (17:00→22:07)
--- NOTE | 2019-09-09 18:33 | DI.CT.S_ITS ---
PROCEDURE: CT ABDOMEN PELVIS W CON INDICATIONS: epigastric pain, pancreatitis, lipase >08198 TECHNIQUE: After the administration of intravenous contrast, 5 mm thick sections acquired from the diaphragm to the symphysis. 5 mm coronal and sagittal reformats were acquired. For radiation dose reduction, the following was used: automated exposure control, adjustment of mA and/or kV according to patient size. COMPARISON: None. FINDINGS: Image quality: Excellent. ABDOMEN: Lung bases: Linear atelectasis versus scarring, extreme right lung base. Eventration of right hemidiaphragm. Heart size is normal. Solid organs: Liver is normal in size and enhancement. Subtle surface nodularity and prominent left lobe suggests possible cirrhotic change. Gallbladder is surgically absent.. Mild intrahepatic biliary ductal dilatation. Extrahepatic duct is not dilated. Diffuse inflammatory change in the fat adjacent to the pancreas is consistent with chronic pancreatitis. No evidence of pancreatic necrosis. Scattered pancreatic calcifications are consistent with chronic pancreatitis. Borderline splenomegaly. Spleen measures 13.1 cm. No adrenal nodules. Kidneys demonstrate normal size and enhancement, without hydronephrosis. Peritoneum and bowel: Bowel loops demonstrate normal wall thickness and caliber. No free fluid or air. Nodes and vessels: No retroperitoneal or mesenteric adenopathy by size criteria. Aorta and inferior vena cava are normal in size. Miscellaneous: No ventral hernias. PELVIS: Genitourinary: Bladder wall thickness is normal. Miscellaneous: No inguinal hernias or adenopathy. Remote hysterectomy. Bones: No suspicious bony lesions. No vertebral body compression fractures. IMPRESSION: 1. Acute pancreatitis with no evidence of pancreatic necrosis. 2. No free air, free fluid, or abscess cavity. 3. Probable cirrhosis. 4. Changes of chronic pancreatitis. 5. Remote cholecystectomy. 6. Mild intrahepatic biliary ductal dilatation. 7. Borderline splenomegaly. Dictated by: Messi Peace M.D. on 09/09/2019 at 19:43 Approved by: Messi Peace M.D. on 09/09/2019 at 19:48
[2019-09-09 18:48] LABS: Cholesterol 235 mg/dL (140-199); HDL Cholesterol 69 mg/dL (40-60); LDL Cholesterol Calculated 119 mg/dL (<100); Triglycerides 234 mg/dL (35-150)
[2019-09-09 19:27] LABS: Bacteria Urine Many (>30); Culture Indicated Urine Specimen Cultured; RBC Urine 5-10/HPF (0-5/HPF); Squamous Epithelial Cell Urine 1-5 /HPF (0-5/HPF); Transitional Epi Cells Urine 1-5/HPF (0-5/HPF); WBC Urine 5-10/HPF (0-5/HPF)
[2019-09-09] MEDS: CEFTRIAXONE 1 GM/50 ML FROZ.PIGGY IV (20:54)
--- NOTE | 2019-09-09 21:07 | DI.MRI.S_ITS ---
PROCEDURE: MR ABDOMEN WO CON INDICATIONS: Acute, Recurrent pancreatitis TECHNIQUE: Coronal HASTE through the abdomen, axial 2-D FLASH in- and [id number], and breath-hold T2 FSE with fat saturation through the biliary system and pancreas. Oblique coronal and axial thin-slice HASTE, radial thick-slab HASTE centered on the extrahepatic bile ducts. Intravenous secretin: Not requested. COMPARISON: None. FINDINGS: Image quality: Excellent. Pancreas and biliary system: Mild diffuse intrahepatic biliary dilatation. The extrahepatic common duct is of normal caliber at 6 mm and is without filling defect. The gallbladder is surgically absent. Mild diffuse T2 hyperintensity involving the entire pancreatic gland with trace adjacent free fluid along the caudal aspect of the gland and, mainly at the [place] hepatis. No discrete fluid collections. There is a tiny mildly prominent sidebranch arising in the uncinate process. The pancreatic duct is mildly dilated at 5 mm in the pancreatic head and uncinate process. The rest of the duct is normal caliber but somewhat irregular and course. No filling defects are identified in the pancreaticobiliary tree. Other solid organs: Liver is mildly enlarged. The left lobe is moderately prominent. There are bands of T2 hyperintensity throughout the parenchyma. The anterior margin is gently lobulated. Spleen is normal in size. A 2.5 cm splenule is present in the splenic hilum. No adrenal nodules. Both kidneys are normal in size, without hydronephrosis. Nodes and vessels: No retroperitoneal or mesenteric adenopathy by size criteria. Aorta and inferior vena cava are normal in size. Bowel and peritoneum: Unenhanced bowel loops are normal in caliber. No free fluid. Lung bases: Linear atelectasis at the right lung base. No significant effusion.. Heart size is normal. Bones and soft tissues: No ventral hernias. Bone marrow is of normal overall signal. IMPRESSION: 1. Expected changes of mild acute pancreatitis. 2. No visible filling defects in the common duct or pancreatic duct. 3. A tiny sidebranch dilatation in the pancreatic once the process is nonspecific, most likely sequela of chronic pancreatitis. 4. Mild intrahepatic biliary dilatation. In the setting of slight liver enlargement, findings raise the possibility for primary sclerosing cholangitis. Clinical correlation recommended. 5. Cholecystectomy. Dictated by: Shanthi Ernst M.D. on 09/10/2019 at 12:07 Approved by: Shanthi Ernst M.D. on 09/10/2019 at 12:34
--- NOTE | 2019-09-09 21:17 | P.HP_ITS ---
History of Present Illness History of Present Illness Date Patient Seen: 09/09/19 Time Patient Seen: 20:33 Chief complaint: upper abd pain Narrative: Ms. Sheela Shaw is a 54-year-old female patient with history significant for history of pancreatitis, hypertension, type 2 diabetes with neuropathy, steatosis, renal insufficiency, and hypersomnia with ob structive sleep apnea, bipolar 1 disorder with major depressive disorder and anxiety who presents to the hospital for complaints of abdominal pain. The patient states she had onset of abdominal pain with associated nausea vomiting x3 last night. Her nausea resolved following emesis of food material. Upon arrival to the hospital the patient complains of epigastric pain 8/10 described as constant sharp and achy. The patient has had previous episodes of pancreatitis last episode is approximately 10 years ago per patient and reports her present pain is consistent with prior episode. 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 She has previously had elevated triglycerides and is on medication for same but has not been taking Counce 3 fish oil as she typically does. She denies associated complaints of recent illness, fevers or chills, headaches or dizziness, nasal congestion or sore throat. She denies chest pain or palpitations. She denies shortness of breath though she states taking a deep breath increases her epigastric pain. She denies cough or wheezing or exertional dyspnea. She has abdominal pain and had nausea vomiting as above but denies constipation or diarrhea. She does describe urinary urgency but denies burning or hematuria. She is independent in her ADLs and uses no assistive devices. Upon arrival to the ER the patient is afebrile with a temperature 97.4?, heart rate of 85, blood pressure 188/110, respirations 16 saturating 95% on room air. The patient under went abdominal ultrasound finding heterogeneous liver with possible cirrhotic changes, no notation of ductal dilatation and no comment on pancreas. CT of the abdomen finds mild liver nodularity of the left lobe consistent with cirrhosis, mild intrahepatic biliary ductal dilatation, extrahepatic ducts are not dilated, chronic pancreatitis with diffuse peripancreatic fat inflammatory changes but no abscess or necrosis, scattered pancreatic calcifications, borderline splenomegaly, kidneys are found to be normal, elevation of the right hemidiaphragm. On laboratory analysis the patient is found have a normal white count of 9.4, hemoglobin of 12.9, hematocrit of 37.3, platelets of 236. Electrolytes are within normal limits with a BUN of 21 and creatinine is 0 7 for an EGFR of greater than 60 in a BUN creatinine ratio 30. Her nonfasting glucose is 157. Her total bilirubin is 0.6, AST is 125, ALT is 128 and alkaline phosphatase 133. She has an elevated lipase at 13,745. Triglycerides are 234, cholesterol 235, LDL is 119. Total CK is 145 with an MB of 2.33 and an index of 1.6 and troponin is negative at less than 0.012. A screening UA completed in the ER is positive for RBCs and WBCs and many bacteria as reflexed to culture. The patient is admitted to the medicine service for acute and recurrent pancreatitis. Patient History Medical History Anxiety (Chronic) Arthritis (Acute) Bipolar 1 disorder (Chronic) History of pancreatitis (Resolved) History of pulmonary embolism (Acute) Hypercholesterolemia with hypertriglyceridemia (Chronic) Hypersomnia (Chronic) Hypertension (Chronic) Major depressive disorder (Chronic) Neuropathy, diabetic (Acute) Nonalcoholic steatohepatitis (HERRING) (Chronic) Obesity (Chronic) Obstructive sleep apnea of adult (Chronic) Renal insufficiency (Acute) Snoring (Inactive) Type 2 diabetes mellitus (Chronic) Surgical History Gastrocnemius equinus of right lower extremity (Acute) Family & Social History Family History Father COPD (chronic obstructive pulmonary disease) Mother Hypertension Sister Fibromyalgia Social History: household members spouse,children lives independently Yes caregiver/support person No Safety & Behavioral: Feels Safe in Current Yes Environment Been Physically Hurt or No Threatened By a Person Tobacco & Substance use: Smoking Status Never smoker alcohol intake current alcohol intake frequency 0-2 drinks per day Substance Use Type marijuana Comment: The patient lives in a single family to level home with her to whom she has been for 32 years and her children. Advanced directives: The patient states her wish to be FULL CODE. She designates her Fox to be her surrogate decision maker. Meds Home Medications and Allergies Home Medications Medication Instructions Recorded Confirmed Type Lantus U-100 Insulin 30 unit SQ QPM #0 09/19/17 09/09/19 History Lantus U-100 Insulin 50 unit SQ DAILY #0 09/19/17 09/09/19 History fenofibrate 160 mg PO DAILY #0 09/19/17 09/09/19 History insulin aspart U-100 [Novolog 10 - 25 unit SQ TIDAC #0 09/19/17 09/09/19 History U-100 Insulin aspart] lorazepam 4 mg PO TID #0 09/19/17 09/09/19 History metoclopramide HCl [Reglan] 10 mg PO QID PRN #0 09/19/17 09/09/19 History metoprolol succinate [Toprol XL] 100 mg PO DAILY #0 09/19/17 09/09/19 History quetiapine [Seroquel] 100 mg PO TID PRN #0 09/19/17 09/09/19 History quetiapine [Seroquel] 800 mg PO BEDTIME #0 09/19/17 09/09/19 History fluoxetine 20 mg capsule 20 mg PO DAILY 10/10/18 09/09/19 History atorvastatin 80 mg PO DAILY 04/17/19 09/09/19 History methylphenidate HCl 10 mg PO QID 04/17/19 09/09/19 History omega-3 acid ethyl esters 2 cap PO BID 04/17/19 09/09/19 History tizanidine 2 mg PO Q8H PRN 04/17/19 09/09/19 History losartan 50 mg PO DAILY #30 tab 04/18/19 09/09/19 Rx Allergies Allergy/AdvReac Type Severity Reaction Status Date / Time No Known Drug Allergies Allergy Verified 06/10/19 18:15 Review of Systems Review of Systems Narrative: All systems reviewed and found unremarkable under discussed in the HPI above. Exam Vital Signs (past 8 hours): - 09/09/19 15:35 09/09/19 15:45 09/09/19 17:47 Temperature 97.4 F L Pulse Rate 68 Pulse Rate [Left] 75 Respiratory Rate 16 15 Blood Pressure [Left Arm] 188/110 H 138/75 Pulse Oximetry 95 09/09/19 19:36 Temperature Pulse Rate 72 Pulse Rate [Left] Respiratory Rate Blood Pressure [Left Arm] 178/101 H Pulse Oximetry Oxygen Delivery Method Room Air Narrative Exam Narrative: GENERAL APPEARANCE: well developed, overweight female sitting on bedside, drowsy appearing but in no acute distress. HEENT: Normocephalic, PERRLA, conjunctiva clear, sclera anicteric, EOMs intact without nystagmus, no external your pain on auricle or tragus manipulation, no mastoid tenderness, no sinus tenderness or rhinorrhea, mucous membranes are moist with thickened saliva and pink. NECK/THYROID: neck supple, no JVD, no carotid bruit, no thyromegaly, trachea midline. LYMPH NODES: no cervical or supraclavicular lymphadenopathy. SKIN: [place], warm and dry, no visible lesions. HEART: regular rate and rhythm, S1-S2, no murmur appreciated, no rubs or ga llops, brisk capillary refill, no edema LUNGS: clear to auscultation bilaterally, no coarseness crackles or wheezing, no cough present CHEST: Symmetrical movement, no accessory muscle use, good tidal volume. ABDOMEN: Soft, epigastric pain on palpation, epigastric pain on palpation of bilateral flanks no guarding or peritoneal signs, no organomegaly, no suprapubic tenderness, active bowel tones. BACK: Normal curvature, nontender to palpation, no CVA tenderness on percussion EXTREMITIES: Well-healed surgical scar dorsum right foot, moves all extremities, strength is 5/5 and symmetrical, no deformities or joint effusions. NEUROLOGIC: AAO x4, patient is drowsy appearing but responds briskly to questions, cranial nerves II-XII grossly intact, neuropathy with decreased sensation bilateral feet and fingertips, hearing grossly normal to speech. PSYCH: cooperative, appropriate with stable behavior Objective Labs Result Diagrams: 09/09/19 15:55 09/09/19 15:55 Labs: Laboratory Results - last 24 hr 09/09/19 09/09/19 09/09/19 15:55 15:55 15:55 WBC 9.4 RBC 4.55 Hgb 12.9 Hct 37.3 MCV 81.9 MCH 28.3 MCHC 34.6 RDW 14.5 Plt Count 236 Neut % (Auto) 79.7 H Lymph % (Auto) 13.4 L [place] % (Auto) 5.6 Eos % (Auto) 0.9 L Baso % (Auto) 0.4 Neut # (Auto) 7500 H Lymph # (Auto) 1300 [place] # (Auto) 500 Eos # (Auto) 100 Baso # (Auto) 0 Sodium 138 Potassium 4.1 Chloride 101 Carbon Dioxide 26 BUN 21 H Creatinine 0.70 Estimated GFR > 60.0 BUN/Creatinine Ratio 30.0 H Glucose 157 H Calcium 10.1 Total Bilirubin 0.6 AST 125 H ALT 128 H Alkaline Phosphatase 133 H Total Creatine Kinase 145 H CK-MB (CK-2) 2.33 CK-MB (CK-2) Rel Index 1.6 Troponin I < 0.012 Total Protein 8.2 Albumin 4.8 Globulin 3.4 Albumin/Globulin Ratio 1.4 Triglycerides 234 H Cholesterol 235 H LDL Cholesterol, Calc 119 H HDL Cholesterol 69 H Lipase 43372 H Urine RBC Urine WBC Ur Squamous Epith Cells Ur Transition Epith Cell Urine Bacteria Ur Culture Indicated? 09/09/19 18:25 WBC RBC Hgb Hct MCV MCH MCHC RDW Plt Count Neut % (Auto) Lymph % (Auto) [place] % (Auto) Eos % (Auto) Baso % (Auto) Neut # (Auto) Lymph # (Auto) [place] # (Auto) Eos # (Auto) Baso # (Auto) Sodium Potassium Chloride Carbon Dioxide BUN Creatinine Estimated GFR BUN/Creatinine Ratio Glucose Calcium Total Bilirubin AST ALT Alkaline Phosphatase Total Creatine Kinase CK-MB (CK-2) CK-MB (CK-2) Rel Index Troponin I Total Protein Albumin Globulin Albumin/Globulin Ratio Triglycerides Cholesterol LDL Cholesterol, Calc HDL Cholesterol Lipase Urine RBC 5-10/hpf H Urine WBC 5-10/hpf H Ur Squamous Epith Cells 1-5 /hpf Ur Transition Epith Cell 1-5/hpf Urine Bacteria Many (>30) H Ur Culture Indicated? Specimen cultured Assessment & Plan Assessment & Plan narrative: This is a 54-year-old female with history of prior episodes of pancreatitis the last being approximately 10 years ago. The patient reports a prior history of sphincter of Oddi dysfunction. 1. Acute pancreatitis, present on admission, active Patient with onset of symptoms last night with associated nausea vomiting, complaints of epigastric pain radiating to bilateral flanks. 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 Describes pain as same as previous episode. CT abdomen finds acute peripancreatic fat inflammatory changes with chronic appearing pancreatic calcifications, no extrahepatic ductal dilatation, no abscess or necrosis. Gallbladder surgically absent. Lipase is 13,745, blood sugar is 157 and triglycerides are 234. Ordered Dilaudid 1 mg every 3 hours as needed for pain, will evaluate response in the setting of chronic opiate use. Ordered Toradol 30 mg x 1 to evaluate response. Patient is NPO, IV fluid normal saline at 150 mL per hour. Ordered MRCP. 2. Diabetes type 2, insulin-dependent, with neuropathy, present on admission, active Patient is insulin dependent type 2 diabetic with neuropathy of feet and fingertips, using Lantus 50 units in the morning and 30 units at night and parental insulin with meals. Blood sugar on admission is 157. Patient is NPO, obtain fingerstick glucose levels every 6 hours and treat with correctional insulin. Will follow blood sugar trends and escalate therapy as needed in the setting of acute pancreatitis. Obtain hemoglobin A1c. 3. Mixed hyperlipidemia, chronic, active Cholesterol panel on admission shows triglycerides at 234, cholesterol 235, LDL 119. Patient reports that she has not been taking omega-3 fish oil S usually does. Continue home regimen of atorvastatin 80 mg daily. Continue home regimen of fenofibrate 160 mg daily. 4. Essential hypertension, present on admission, active Patient with elevated blood pressure upon arrival at 188/110 and remained elevated upon arrival to the floor at 187/107. Patient with history of renal insufficiency however creatinine upon admission is 0.7 with an EGFR greater than 60. Patient routinely takes losartan 50 mg daily, ordered additional 50 mg p.o. now. Ordered losartan 100 mg daily. Continue home regimen of metoprolol succinate 100 mg daily. Will follow blood pressures to assess adequacy of treatment. 5. Elevated transaminases, non alcoholic steatosis, chronic, present on admission, active. Patient with elevated transaminases on admission with a total bili [place] of 0.6, AST of 125, ALT of 128 and alkaline phosphatase of 133. Abdominal ultrasound notes heterogeneous liver and possible cirrhotic changes. CT abdomen finds liver is normal in size and enhancement with subtle surface nodularity and prominent left lobe the liver suggesting possible cirrhotic changes. Mild intrahepatic ductal dilatation. Obtaining MRCP in the morning. 6. Right otitis media, acute, present on admission, active Patient complains of right ear pain, stating it ?feels like it is full of water?. Patient started on ceftriaxone 1 g IV in the emergency department. Ordered ceftriaxone 1 g IV for 2 additional days as patient is NPO. 7. Probable urinary tract infection, acute, present on admission, active. Patient reports what sounds to be chronic symptoms of urgency but denies frequency burning or urination. Urine is positive for WBCs and RBCs and many bacteria on screening UA, requested full urinalysis. Sample reflexed to culture. The patient is receiving Rocephin 1 g IV for otitis media which will cover most urinary organisms. Will monitor urinary symptoms and await culture. 8. Bipolar 1 disorder, chronic, present on admission, active The patient is drowsy on evaluation, briskly responsive to questions and cooperative. Patient is on multiple psychotropic medications for bipolar 1, depression and anxiety. Continue home regimen of fluoxetine 20 mg daily. Patient is on both methylphenidate 10 mg 4 times daily as well as lorazepam 3 times daily. Due to patient level drowsiness will hold lorazepam and will decrease methylphenidate to 10 mg 3 times daily. Continue patient's home regimen of quetiapine 800 mg at bedtime. Will evaluate need for patient's as needed quetiapine 100 mg up to 3 times daily which would is seed maximum dose with 800 mg bedtime dosage. VTE prophylaxis: SCDs and Lovenox Diet: NPO, will re-evaluate in the morning. IV fluid: Normal saline 150 cc/hour. The patient is admitted to the hospital for acute and reoccurring pancreatitis which appears related to sphincter of otitis function requiring additional evaluation and pain management. The patient is inpatient status with expected length of stay to be greater than 2 midnights. Scores GCS [place] coma scale eye opening: Spontaneous [place] coma scale verbal response: Orientated [place] coma scale motor response: Obey commands [place] coma scale total score: 15
[2019-09-09 21:20] LABS: Magnesium 1.9 mg/dL (1.6-2.3)
[2019-09-09] MEDS: KETOROLAC 30 MG/ML VIAL IV (22:07)
[2019-09-09] MEDS: LOSARTAN 50 MG TABLET PO (22:54)
[2019-09-09 23:24] LABS: Hemoglobin A1C% w Est Avg Glu 7.1 % (4.0-6.0)
--- NOTE | 2019-09-09 23:41 | PC.NURSE ---
Gifty shift admit note: Patient admitted to room 213 from ED, awake, alert, and calm. IVF initiated. SCDs and Tele in place. Cont pulse ox at 96%, on RA. NPO. Oriented to room, environment, and plan of care. Call light within reach.
[2019-09-10] VITALS (7 sets, daily range): BP systolic 103–184; BP diastolic 63–113; PULSE 58–79; RESP 16–22; TEMP 36.1–37.1; O2SAT 94–96
--- NOTE | 2019-09-10 01:49 | PC.NURSE ---
Addendum entered by Nicole Head R.N. 09/10/19 05:50: Spoke to DIRECTOR OF MUSIC about concerns that patient could continue to be self medicating and possibly injecting herself. Ordered Q2 Blood sugar checks for 6 hours to determine if patient might have self medicated with her own insulin and avoid hypoglycemia. Will change Q6 blood sugar checks to Q2 to reflect his order and notify day shift nurse. Addendum entered by Nicole Head R.N. 09/10/19 05:45: CARDIAC CATH TECHNOLOGIST alerted this RN to the possibility that patient had more medications and/or had given herself an injection while unsupervised in the bathroom. Asked patient if she was okay and if she had taken anything else to which the patient denied. Will notify DIRECTOR OF MUSIC of CARDIAC CATH TECHNOLOGIST's observations. Original Note: Shift note: Received patient from evening shift. During assessment found patient to be somnolent but arousable, answers questions appropriately with a flat affect and some slurring of her words, AxOx3. Patient with a dry mouth related to NPO status, understands why she is NPO. BP was hypotensive and heart rate was bradycardic, notfied DIRECTOR OF MUSIC of findings as patient was significantly hypertensive in ER and when first admitted. Patient denied pain, nausea, vomiting, and states she doesn't routinely pass flatus. Bowel tones were active in all 3 quadrants. Notified DIRECTOR OF MUSIC that patient had not received evening dose of Seroquel and he requested that efforts be made to ensure patient received medication. Notified coordinator of med request and upon returning to patient room, patient notified this RN that she had already taken her home medications that she had in her bag. Educated patient that it is dangerous to take home medications when she will also be medicated while in the hospital. Patient reported to this RN that she took her Seroquel and blood pressure meds and stated that she did not take the Losartan that evening shift gave her and stashed here somewhere referring to her bed. CARDIAC CATH TECHNOLOGIST found a white pill in the bed and gave it to this RN, unable to definitively identify due to markings missing from medication. DIRECTOR OF MUSIC notified of patient taking her own meds and that the patient's own pills were confiscated and locked up in the night pharmacy. Coordinator made aware of entire situation. Will monitor patient's blood pressure closely due to significant change, mentation, and safety as patient is also being medicated for pain. Patient is a high fall risk, bed alarm on and functioning, call light in reach.
[2019-09-10] MEDS: HYDROMORPHONE 1 MG INJ IV ×3 (03:40→09:57)
[2019-09-10] MEDS: ONDANSETRON 4 MG/2 ML INJ IV ×2 (03:45→12:09)
[2019-09-10] MEDS: SODIUM CHLORIDE 0.9% 1,000 ML 150 ML IV ×3 (04:50→22:15)
[2019-09-10 05:36] LABS: Add Manual Diff / Slide Review NO; Basophils Absolute Auto 0 /uL (0-100); Basophils Percent Auto 0.1 % (0-2); Eosinophils Absolute Auto 100 /uL (0-450); Hematocrit 34.9 % (36-46); Hemoglobin 11.7 g/dL (12.0-16.0); Lymphocytes Absolute Auto 1100 /uL (1100-4500); Lymphocytes Percent Auto 14.6 % (25-40); Mean Corpuscular HGB Conc 33.6 % (30-36); Mean Corpuscular Hemoglobin 27.9 PG (26-34); Mean Corpuscular Volume 83.2 fL (80-100); Monocytes Absolute Auto 500 /uL (0-900); Monocytes Percent Auto 6.7 % (3-14); Neutrophils Absolute Auto 5600 /uL (1500-7000); Neutrophils Percent Auto 77.6 % (50-75); Platelet Count 191 X10^3/uL (150-400); Red Blood Cell Count 4.19 X10^6/uL (4.0-5.2); Red Cell Distribution Width 14.8 % (11.6-14.8); White Blood Cell Count 7.2 X10^3/uL (4.5-11.0)
[2019-09-10 05:46] LABS: BUN Creatinine Ratio 21.4 (6-22); Blood Urea Nitrogen 15 mg/dL (7-17); Calcium 9.3 mg/dL (8.4-10.2); Carbon Dioxide 26 mmol/L (22-32); Chloride 105 mmol/L (98-107); Estimated Glomerular Filt Rate > 60.0 mL/min (>60); Glucose 118 mg/dL (70-100); HEMOLYSIS < 15 (0-50); Potassium 4.1 mmol/L (3.4-5.1); Sodium 138 mmol/L (137-145)
[2019-09-10] MEDS: KETOROLAC 15 MG/ML VIAL IV ×3 (06:41→17:55)
[2019-09-10 08:23] LABS: Albumin 4.1 g/dL (3.5-5.0); Albumin Globulin Ratio 1.3 (1.0-2.8); Aspartate Aminotransferase 101 IU/L (14-36); Bilirubin Total 0.4 mg/dL (0.2-1.3); Bilirubin Unconjugated 0.1 mg/dL (0.0-1.1); Globulin 3.2 g/dL (1.7-4.1); HEMOLYSIS < 15 (0-50); Total Protein 7.3 g/dL (6.3-8.2)
[2019-09-10 08:46] LABS: Alanine Aminotransferase 101 IU/L (<35); Alkaline Phosphatase 122 U/L (38-126)
[2019-09-10] MEDS: METOPROLOL ER 50 MG TABLET 100 MG PO (09:50)
[2019-09-10] MEDS: LOSARTAN 50 MG TABLET PO (09:50)
[2019-09-10] MEDS: ENOXAPARIN 40 MG/0.4 ML SYRINGE SUBCUT (09:50)
[2019-09-10] MEDS: ATORVASTATIN 20 MG TABLET 80 MG PO (09:50)
[2019-09-10] MEDS: FLUoxetine 20 MG CAPSULE PO (09:50)
[2019-09-10] MEDS: HYDROMORPHONE 1 MG INJ 1.5 MG IV ×6 (12:02→22:16)
--- NOTE | 2019-09-10 13:19 | P.PN_ITS ---
Subjective Subjective Date Patient Seen: 09/10/19 Time Patient Seen: 13:20 Interval history: denise Shaw is a 54-year-old female patient with history significant for history of pancreatitis, hypertension, type 2 diabetes with neuropathy, steatosis, renal insufficiency, and hypersomnia with obstructive sleep apnea, bipolar 1 disorder with major depressive disorder and anxiety who is admitted for recurrent episode of pancreatitis. Her pain was not controlled as of this morning. When up on dosage of her Dilaudid and frequency, and she is much more comfortable appearing this afternoon. She underwent an MRI which did not show any evidence of obstruction, however there is comment of possible PSC, however her clinical picture does not correlate with presentation of PSC and she does appear to be improving. Will continue to monitor her hepatic serologies but no further testing is necessary at this time. Exam Vital Signs (past 8 hours): - 09/10/19 08:15 Temperature 97.0 F L Pulse Rate 74 Respiratory Rate 18 Blood Pressure 184/101 H Pulse Oximetry 94 Oxygen Delivery Method Room Air Oxygen Flow Rate 0 Narrative Exam Narrative: GENERAL APPEARANCE: well developed, overweight female sitting on bedside, drowsy appearing but in no acute distress. HEENT: Normocephalic, PERRLA, conjunctiva clear, sclera anicteric, EOMs intact without nystagmus, no external your pain on auricle or tragus manipulation, no mastoid tenderness, no sinus tenderness or rhinorrhea, mucous membranes are moist with thickened saliva and pink. NECK/THYROID: neck supple, no JVD, no carotid bruit, no thyromegaly, trachea midline. LYMPH NODES: no cervical or supraclavicular lymphadenopathy. SKIN: [place], warm and dry, no visible lesions. HEART: regular rate and rhythm, S1-S2, no murmur appreciated, no rubs or gallops, brisk capillary refill, no edema LUNGS: clear to auscultation bilaterally, no coarseness crackles or wheezing, no cough present CHEST: Symmetrical movement, no accessory muscle use, good tidal volume. ABDOMEN: Soft, epigastric pain on palpation, epigastric pain on palpation of bilateral flanks no guarding or peritoneal signs, no organomegaly, no suprapubic tenderness, active bowel tones. BACK: Normal curvature, nontender to palpation, no CVA tenderness on percussion EXTREMITIES: Well-healed surgical scar dorsum right foot, moves all extremities, strength is 5/5 and symmetrical, no deformities or joint effusions. NEUROLOGIC: AAO x4, patient is drowsy appearing but responds briskly to questions, cranial nerves II-XII grossly intact, neuropathy with decreased sensation bilateral feet and fingertips, hearing grossly normal to speech. PSYCH: cooperative, appropriate with stable behavior Objective Labs Result Diagrams: 09/10/19 05:25 09/10/19 05:25 Labs: Laboratory Results - last 24 hr 09/09/19 09/09/19 09/09/19 15:55 15:55 15:55 WBC 9.4 RBC 4.55 Hgb 12.9 Hct 37.3 MCV 81.9 MCH 28.3 MCHC 34.6 RDW 14.5 Plt Count 236 Neut % (Auto) 79.7 H Lymph % (Auto) 13.4 L [place] % (Auto) 5.6 Eos % (Auto) 0.9 L Baso % (Auto) 0.4 Neut # (Auto) 7500 H Lymph # (Auto) 1300 [place] # (Auto) 500 Eos # (Auto) 100 Baso # (Auto) 0 Sodium 138 Potassium 4.1 Chloride 101 Carbon Dioxide 26 BUN 21 H Creatinine 0.70 Estimated GFR > 60.0 BUN/Creatinine Ratio 30.0 H Glucose 157 H Hemoglobin A1c Calcium 10.1 Magnesium Total Bilirubin 0.6 Conjugated Bilirubin Unconjugated Bilirubin AST 125 H ALT 128 H Alkaline Phosphatase 133 H Total Creatine Kinase 145 H CK-MB (CK-2) 2.33 CK-MB (CK-2) Rel Index 1.6 Troponin I < 0.012 Total Protein 8.2 Albumin 4.8 Globulin 3.4 Albumin/Globulin Ratio 1.4 Triglycerides 234 H Cholesterol 235 H LDL Cholesterol, Calc 119 H HDL Cholesterol 69 H Lipase 88738 H Urine RBC Urine WBC Ur Squamous Epith Cells Ur Transition Epith Cell Urine Bacteria Ur Culture Indicated? 09/09/19 09/09/19 09/09/19 15:55 15:58 18:25 WBC RBC Hgb Hct MCV MCH MCHC RDW Plt Count Neut % (Auto) Lymph % (Auto) [place] % (Auto) Eos % (Auto) Baso % (Auto) Neut # (Auto) Lymph # (Auto) [place] # (Auto) Eos # (Auto) Baso # (Auto) Sodium Potassium Chloride Carbon Dioxide BUN Creatinine Estimated GFR BUN/Creatinine Ratio Glucose Hemoglobin A1c 7.1 H Calcium Magnesium 1.9 Total Bilirubin Conjugated Bilirubin Unconjugated Bilirubin AST ALT Alkaline Phosphatase Total Creatine Kinase CK-MB (CK-2) CK-MB (CK-2) Rel Index Troponin I Total Protein Albumin Globulin Albumin/Globulin Ratio Triglycerides Cholesterol LDL Cholesterol, Calc HDL Cholesterol Lipase Urine RBC 5-10/hpf H Urine WBC 5-10/hpf H Ur Squamous Epith Cells 1-5 /hpf Ur Transition Epith Cell 1-5/hpf Urine Bacteria Many (>30) H Ur Culture Indicated? Specimen cultured 09/10/19 09/10/19 09/10/19 05:25 05:25 05:25 WBC 7.2 RBC 4.19 Hgb 11.7 L Hct 34.9 L MCV 83.2 MCH 27.9 MCHC 33.6 RDW 14.8 Plt Count 191 Neut % (Auto) 77.6 H Lymph % (Auto) 14.6 L [place] % (Auto) 6.7 Eos % (Auto) 1.0 L Baso % (Auto) 0.1 Neut # (Auto) 5600 Lymph # (Auto) 1100 [place] # (Auto) 500 Eos # (Auto) 100 Baso # (Auto) 0 Sodium 138 Potassium 4.1 Chloride 105 Carbon Dioxide 26 BUN 15 Creatinine 0.70 Estimated GFR > 60.0 BUN/Creatinine Ratio 21.4 Glucose 118 H Hemoglobin A1c Calcium 9.3 Magnesium Total Bilirubin 0.4 Conjugated Bilirubin 0.0 Unconjugated Bilirubin 0.1 AST 101 H ALT 101 H Alkaline Phosphatase 122 Total Creatine Kinase CK-MB (CK-2) CK-MB (CK-2) Rel Index Troponin I Total Protein 7.3 Albumin 4.1 Globulin 3.2 Albumin/Globulin Ratio 1.3 Triglycerides Cholesterol LDL Cholesterol, Calc HDL Cholesterol Lipase Urine RBC Urine WBC Ur Squamous Epith Cells Ur Transition Epith Cell Urine Bacteria Ur Culture Indicated? Assessment & Plan Assessment & Plan narrative: Sheela Shaw is a 54-year-old female patient with history significant for history of pancreatitis, hypertension, type 2 diabetes with neuropathy, steatosis, renal insufficiency, and hypersomnia with obstructive sleep apnea, bipolar 1 disorder with major depressive disorder and anxiety who is admitted for recurrent episode of pancreatitis. 1. Acute on chronic pancreatitis, present on admission, active -MRI findings consistent with chronic pancreatitis. Patient with onset of symptoms last night with associated nausea vomiting, complaints of epigastric pain radiating to bilateral flanks. 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 Describes pain as same as previous episode. CT abdomen finds acute peripancreatic fat inflammatory changes with chronic appearing pancreatic calcifications, no extrahepatic ductal dilatation, no abscess or necrosis. Gallbladder surgically absent. Lipase is 13,745, blood sugar is 157 and triglycerides are 234. Increased Dilaudid to 1.5 mg every 2 hours as needed for pain. Toradol 15 mg q6 hours as needed as well. Patient is NPO, IV fluid normal saline at 150 mL per hour. MRCP showed findings consistent with acute on chronic pancreatitis. But also Mild intrahepatic biliary dilatation, which in the setting of slight liver enlargement raise the possibility of primary sclerosing cholangitis. Her also has some lobulation with possible cirrhosis. Her alk-phos is not significantly elevated, and clinically she does not appear to have symptoms of PSC. 2. Diabetes type 2, insulin-dependent, with neuropathy, present on admission, active Patient is insulin dependent type 2 diabetic with neuropathy of feet and fingertips, using Lantus 50 units in the morning and 30 units at night and parental insulin with meals. Blood sugar on admission is 157. Patient is NPO, obtain fingerstick glucose levels every 6 hours and treat with correctional insulin. Will follow blood sugar trends and escalate therapy as needed in the setting of acute pancreatitis. A1c 7.1%. 3. Mixed hyperlipidemia, chronic, active Cholesterol panel on admission shows triglycerides at 234, cholesterol 235, LDL 119. Patient reports that she has not been taking omega-3 fish oil S usually does. Continue home regimen of atorvastatin 80 mg daily. Continue home regimen of fenofibrate 160 mg daily. 4. Essential hypertension, present on admission, active Patient with elevated blood pressure upon arrival at 188/110 and remained elevated upon arrival to the floor at 187/107. Patient with history of renal insufficiency however creatinine upon admission is 0.7 with an EGFR greater than 60. Patient routinely takes losartan 50 mg daily, ordered additional 50 mg p.o. and increased dose as noted below. Continue losartan 100 mg daily Continue home regimen of metoprolol succinate 100 mg daily. Will follow blood pressures to assess adequacy of treatment. Will work on pain control as noted above. 5. Elevated transaminases, non alcoholic steatosis, chronic, present on admission, active. Patient with elevated transaminases on admission with a total bilirubin of 0.6, AST of 125, ALT of 128 and alkaline phosphatase of 133. LFTs are improving today. Abdominal ultrasound notes heterogeneous liver and possible cirrhotic changes. CT abdomen finds liver is normal in size and enhancement with subtle surface nodularity and prominent left lobe the liver suggesting possible cirrhotic changes. Mild intrahepatic ductal dilatation. MRCP as noted above. 6. Right otitis media, acute, present on admission, active Patient complains of right ear pain, stating it ?feels like it is full of water?. Patient started on ceftriaxone 1 g IV in the emergency department. Continue ceftriaxone 1 g IV for 2 additional days as patient is NPO. 7. Probable urinary tract infection, acute, present on admission, active. Patient reports what sounds to be chronic symptoms of urgency but denies frequency burning or urination. Urine is positive for WBCs and RBCs and many bacteria on screening UA, requested full urinalysis. Sample reflexed to culture. The patient is receiving Rocephin 1 g IV for otitis media which will cover most urinary organisms. Will monitor urinary symptoms and await culture, currently with GNB. 8. Bipolar 1 disorder, chronic, present on admission, active The patient is drowsy on evaluation, briskly responsive to questions and cooperative. Patient is on multiple psychotropic medications for bipolar 1, depression and anxiety. Continue home regimen of fluoxetine 20 mg daily. Patient is on both methylphenidate 10 mg 4 times daily as well as lorazepam 3 times daily. Due to initial patient level drowsiness will continue to hold lorazepam and c ontinue decreased methylphenidate at 10 mg 3 times daily. Continue patient's home regimen of quetiapine 800 mg at bedtime. VTE prophylaxis: Lovenox Diet: Continue NPO, IVF. prn nausea medications. IV fluid: Normal saline 150 cc/hour. Remain inpatient: anticipate discharge once tolerating a diet which may be between 2-3 days at this time, but this can vary from person to person.
[2019-09-10] MEDS: FENOFIBRATE 160 MG TABLET PO (14:15)
--- NOTE | 2019-09-10 18:44 | PC.NURSE ---
Gifty shift note: Patient sleeping between care, arouses easily. No C/O nausea, tenderness to epigastric region, continue NPO, and understands importance. IVF infusing. BG 101 at 1800, monitoring for s/sx of hypoglycemia. Calls appropriately for staff assistance.
[2019-09-10] MEDS: QUETIAPINE 200 MG TABLET 400 MG PO (20:02)
[2019-09-10] MEDS: CEFTRIAXONE 1 GM/50 ML FROZ.PIGGY IV (20:04)
[2019-09-11] VITALS (10 sets, daily range): BP systolic 151–184; BP diastolic 82–119; PULSE 60–73; RESP 14–18; TEMP 36.1–37.2; O2SAT 95–97
[2019-09-11] MEDS: KETOROLAC 15 MG/ML VIAL IV ×2 (00:19→05:51)
[2019-09-11] MEDS: HYDROMORPHONE 1 MG INJ 1.5 MG IV ×3 (00:20→04:48)
[2019-09-11] MEDS: ONDANSETRON 4 MG/2 ML INJ IV (02:44)
--- NOTE | 2019-09-11 02:49 | PC.NURSE ---
Addendum entered by Nicole Head R.N. 09/11/19 05:00: Notified BRACELET FORMER of patient's hypertension 171/103, stated most likely a sympathetic response to pain which was medicated for per SEP. Will continue to monitor after med administration to see if there is a positive response otherwise will notify BRACELET FORMER for new orders. Original Note: Shift note: Notified BRACELET FORMER of concerns voiced by CEMENT CONVEYOR OPERATOR that patient might be injecting herself with something in the bathroom (CEMENT CONVEYOR OPERATOR reports patient has something in her hand but will not show her). Patient continues to be secretive with her purse that she takes into the bathroom every time with her. BRACELET FORMER states to have patient use BSC to make monitoring patient's actions easier. Notified CEMENT CONVEYOR OPERATOR to do so. Patient's midnight CBG was 87, notified BRACELET FORMER, new orders for repeated CBG in 2 hours. Repeat CBG was 83, notified BRACELET FORMER. Repeated CBG was 88, BRACELET FORMER states that we can return to q6 checks after 0600. Turned on lock out on patient's IV pump as she has been caught manipulating it even after multiple attempts at education to let staff assess alarms. Patient is impulsive at times and will not wait to leave the bed. At start of shift denied nausea but later in the shift requested medication for nausea. Bowel tones are hypoactive, flatus present, abdomen soft and tender. Patient is a high fall risk, bed alarm on and functioning, call light in reach and reinforced use to patient. Will continue to monitor.
[2019-09-11] MEDS: SODIUM CHLORIDE 0.9% 1,000 ML 150 ML IV ×3 (05:18→21:33)
[2019-09-11 06:40] LABS: Add Manual Diff / Slide Review NO; Basophils Absolute Auto 100 /uL (0-100); Basophils Percent Auto 1.7 % (0-2); Eosinophils Absolute Auto 100 /uL (0-450); Eosinophils Percent Auto 1.4 % (2-4); Hematocrit 34.8 % (36-46); Hemoglobin 11.6 g/dL (12.0-16.0); Lymphocytes Absolute Auto 500 /uL (1100-4500); Lymphocytes Percent Auto 9.5 % (25-40); Mean Corpuscular HGB Conc 33.4 % (30-36); Mean Corpuscular Hemoglobin 27.8 PG (26-34); Mean Corpuscular Volume 83.1 fL (80-100); Monocytes Absolute Auto 200 /uL (0-900); Monocytes Percent Auto 4.8 % (3-14); Neutrophils Absolute Auto 4200 /uL (1500-7000); Neutrophils Percent Auto 82.6 % (50-75); Platelet Count 183 X10^3/uL (150-400); Red Blood Cell Count 4.19 X10^6/uL (4.0-5.2); Red Cell Distribution Width 14.6 % (11.6-14.8); White Blood Cell Count 5.1 X10^3/uL (4.5-11.0)
[2019-09-11 06:51] LABS: Alanine Aminotransferase 80 IU/L (<35); Albumin 4.2 g/dL (3.5-5.0); Albumin Globulin Ratio 1.4 (1.0-2.8); Alkaline Phosphatase 120 U/L (38-126); Aspartate Aminotransferase 63 IU/L (14-36); BUN Creatinine Ratio 23.3 (6-22); Bilirubin Total 0.5 mg/dL (0.2-1.3); Bilirubin Unconjugated 0.2 mg/dL (0.0-1.1); Blood Urea Nitrogen 14 mg/dL (7-17); Calcium 9.1 mg/dL (8.4-10.2); Carbon Dioxide 25 mmol/L (22-32); Chloride 104 mmol/L (98-107); Estimated Glomerular Filt Rate > 60.0 mL/min (>60); Globulin 3.1 g/dL (1.7-4.1); Glucose 98 mg/dL (70-100); HEMOLYSIS < 15 (0-50); Magnesium 1.9 mg/dL (1.6-2.3); Potassium 4.3 mmol/L (3.4-5.1); Sodium 139 mmol/L (137-145); Total Protein 7.3 g/dL (6.3-8.2)
[2019-09-11] MEDS: METOPROLOL ER 50 MG TABLET 100 MG PO (08:00)
[2019-09-11] MEDS: ATORVASTATIN 20 MG TABLET 80 MG PO (08:01)
[2019-09-11] MEDS: LOSARTAN 50 MG TABLET PO (08:01)
[2019-09-11] MEDS: HYDROMORPHONE 4 MG TABLET PO (08:01)
[2019-09-11] MEDS: LORazepam 1 MG TABLET 2 MG PO (08:01)
[2019-09-11] MEDS: ENOXAPARIN 40 MG/0.4 ML SYRINGE SUBCUT (08:01)
[2019-09-11] MEDS: FENOFIBRATE 160 MG TABLET PO (08:02)
[2019-09-11] MEDS: FLUoxetine 20 MG CAPSULE PO (08:02)
[2019-09-11] MEDS: fentaNYL 25 MCG/PATCH TOP (11:56)
[2019-09-11] MEDS: HYDROMORPHONE 2 MG INJ IV ×5 (11:56→21:31)
[2019-09-11] MEDS: KETOROLAC 30 MG/ML VIAL IV (14:02)
--- NOTE | 2019-09-11 15:04 | CM.IDA ---
Discharge Planning/Care Management CM Discharge Assessment Start: 09/11/19 14:56 Freq: Status: Active Protocol: Document 09/11/19 14:56 CLAUDE (Rec: 09/11/19 15:04 CLAUDE [email or web address]) Discharge Planning Assessment Assigned Grocery Clerk Stocking MIGDALIA Fish DPOA/Assigned Designee Name Arnie ellis, spouse Contact Information [phone] Advance Directives? No History Provided By Patient,Medical Record Household Members spouse,children Type of transporation used prior to Drives own vehicle admit Independent with ADL's Yes Is patient alert and oriented? Yes Barriers to Discharge No Comment Pt is admitted for management of acute on chronic pancreatitis, awaiting resolution and advancement of diet before DC, pt remains NPO today PCP: Neftaly Tomlinson Payer: Brandan Met w/pt today, explained SW/ DCP role. Pt explains she lives at home w/family and her is extremely supportive, she has no DC needs or cocnerns at this time and is eager to return home when medically cleared. P: DC home anticipated once medically cleared w/family via pov CLIENT PROGRAM MANAGER team will follow closely in case DC needs or concerns arise MIGDAILA Callaway Discharge Plan Home Transportation Arrangement Family Referrals Initiated None needed
--- NOTE | 2019-09-11 15:16 | P.PN_ITS ---
Subjective Subjective Date Patient Seen: 09/11/19 Time Patient Seen: 11:45 Interval history: Sheela Shaw is a 54-year-old female patient with history significant for history of pancreatitis, hypertension, type 2 diabetes with neuropathy, steatosis, renal insufficiency, and hypersomnia with obstructive sleep apnea, bipolar 1 disorder with major depressive disorder and anxiety who is admitted for recurrent episode of pancreatitis. After initially increasing her Dilaudid frequency she appeared more comfortable but frequently required IV pain medications. Try to transition to oral today but she is again in pain. She continues to describe her sharp stabbing epigastric pain that radiates into the back. She reports of history of requiring SENIOR LICENSING MANAGER for pancreatitis in the past, however this is not currently available in our hospital. I have added a fentanyl patch today, and have increased her IV Dilaudid dose to try and help control her pain. She remains NPO and on IV fluids. Exam Vital Signs (past 8 hours): - 09/11/19 07:37 09/11/19 08:00 09/11/19 08:01 Temperature 97.0 F L Pulse Rate 71 Respiratory Rate 14 Blood Pressure 183/119 H 183/119 H 183/119 H Pulse Oximetry 95 Oxygen Delivery Method Room Air Oxygen Flow Rate 0 Narrative Exam Narrative: GENERAL APPEARANCE: well developed, overweight female sitting on bedside, drowsy appearing but in no acute distress. HEENT: Normocephalic, PERRLA, conjunctiva clear, sclera anicteric, EOMs intact without nystagmus, no external your pain on auricle or tragus manipulation, no mastoid tenderness, no sinus tenderness or rhinorrhea, mucous membranes are moist with thickened saliva and pink. NECK/THYROID: neck supple, no JVD, no carotid bruit, no thyromegaly, trachea midline. LYMPH NODES: no cervical or supraclavicular lymphadenopathy. SKIN: [place], warm and dry, no visible lesions. HEART: regular rate and rhythm, S1-S2, no murmur appreciated, no rubs or gallops, brisk capillary refill, no edema LUNGS: clear to auscultation bilaterally, no coarseness crackles or wheezing, no cough present CHEST: Symmetrical movement, no accessory muscle use, good tidal volume. ABDOMEN: Soft, epigastric pain on palpation, epigastric pain on palpation of bilateral flanks no guarding or peritoneal signs, no organomegaly, no suprapubic tenderness, active bowel tones. BACK: Normal curvature, nontender to palpation, no CVA tenderness on percussion EXTREMITIES: Well-healed surgical scar dorsum right foot, moves all extremities, strength is 5/5 and symmetrical, no deformities or joint effusions. NEUROLOGIC: AAO x4, patient is drowsy appearing but responds briskly to questions, cranial nerves II-XII grossly intact, neuropathy with decreased sensation bilateral feet and fingertips, hearing grossly normal to speech. PSYCH: cooperative, appropriate with stable behavior Objective Labs Result Diagrams: 09/11/19 06:05 09/11/19 06:05 Labs: Laboratory Results - last 24 hr 09/11/19 09/11/19 06:05 06:05 WBC 5.1 RBC 4.19 Hgb 11.6 L Hct 34.8 L MCV 83.1 MCH 27.8 MCHC 33.4 RDW 14.6 Plt Count 183 Neut % (Auto) 82.6 H Lymph % (Auto) 9.5 L [place] % (Auto) 4.8 Eos % (Auto) 1.4 L Baso % (Auto) 1.7 Neut # (Auto) 4200 Lymph # (Auto) 500 L [place] # (Auto) 200 Eos # (Auto) 100 Baso # (Auto) 100 Sodium 139 Potassium 4.3 Chloride 104 Carbon Dioxide 25 BUN 14 Creatinine 0.60 Estimated GFR > 60.0 BUN/Creatinine Ratio 23.3 H Glucose 98 Calcium 9.1 Magnesium 1.9 Total Bilirubin 0.5 Conjugated Bilirubin 0.0 Unconjugated Bilirubin 0.2 AST 63 H ALT 80 H Alkaline Phosphatase 120 Total Protein 7.3 Albumin 4.2 Globulin 3.1 Albumin/Globulin Ratio 1.4 Assessment & Plan Assessment & Plan narrative: Sheela Shaw is a 54-year-old female patient with history significant for history of pancreatitis, hypertension, type 2 diabetes with neuropathy, steatosis, renal insufficiency, and hypersomnia with obstructive sleep apnea, bipolar 1 disorder with major depressive disorder and anxiety who is admitted for recurrent episode of pancreatitis. 1. Acute on chronic pancreatitis, present on admission, active -MRI findings consistent with chronic pancreatitis. Patient with onset of symptoms night prior to admission with associated nausea vomiting, complaints of epigastric pain radiating to bilateral flanks. 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 Describes pain as same as previous episode. CT abdomen finds acute peripancreatic fat inflammatory changes with chronic appearing pancreatic calcifications, no extrahepatic ductal dilatation, no abscess or necrosis. Gallbladder surgically absent. Lipase was 13,745 and triglycerides are 234. Increased Dilaudid to 2 mg every 2 hours as needed for pain. Toradol 15 mg q6 hours as needed as well. Have added fentanyl patches, as well as oral hydrocortisone. Patient will remain NPO except for medications, IV fluid normal saline at 150 mL per hour. MRCP showed findings consistent with acute on chronic pancreatitis. But also Mild intrahepatic biliary dilatation, which in the setting of slight liver enlargement raise the possibility of primary sclerosing cholangitis. Her also has some lobulation with possible cirrhosis. Her alk-phos is not significantly elevated, and clinically she does not appear to have symptoms of PSC. -she will need follow up with outpatient gastroenterology for further evaluation of her liver disease. -antihypertensive medications changed as noted below, statin medication was also discontinued. 2. Diabetes type 2, insulin-dependent, with neuropathy, present on admission, active Patient is insulin dependent type 2 diabetic with neuropathy of feet and fingertips, using Lantus 50 units in the morning and 30 units at night and parental insulin with meals. Blood sugar on admission is 157. Patient is NPO, obtain fingerstick glucose levels every 6 hours and treat with correctional insulin. Since admission her blood glucose values have been near 100. Will follow blood sugar trends and escalate therapy as needed in the setting of acute pancreatitis. A1c 7.1%. 3. Mixed hyperlipidemia, chronic, active Cholesterol panel on admission shows triglycerides at 234, cholesterol 235, LDL 119. Patient reports that she has not been taking omega-3 fish oil S usually does. Will hold home regimen of atorvastatin 80 mg daily while NPO and this medication has been implicated as a possible cause of pancreatitis. Will hold home regimen of fenofibrate 160 mg daily while NPO. 4. Essential hypertension, present on admission, active Patient with elevated blood pressure upon arrival at 188/110 and remained elevated upon arrival to the floor at 187/107. Patient with history of renal insufficiency however creatinine upon admission is 0.7 with an EGFR greater than 60. Patient routinely takes losartan 50 mg daily initially ordered to take 100 mg but will discontinue as this has been implicated as a possible cause of pancreatitis, will change to nifedipine. Continue home regimen of metoprolol succinate 100 mg daily. Will follow blood pressures to assess adequacy of treatment. Will work on pain control as noted above. 5. Elevated transaminases, non alcoholic steatosis, chronic, present on admission, active. Patient with elevated transaminases on admission with a total bilirubin of 0.6, AST of 125, ALT of 128 and alkaline phosphatase of 133. LFTs are improving today. Abdominal ultrasound notes heterogeneous liver and possible cirrhotic changes. CT abdomen finds liver is normal in size and enhancement with subtle surface nodularity and prominent left lobe the liver suggesting possible cirrhotic changes. Mild intrahepatic ductal dilatation. MRCP as noted above. 6. Right otitis media, acute, present on admission, active Patient complains of right ear pain, stating it ?feels like it is full of water?. Patient started on ceftriaxone 1 g IV in the emergency department. Continued ceftriaxone 1 g IV for 3 total doses as patient is NPO. 7. Probable urinary tract infection, acute, present on admission, active. Patient reported what sounds to be chronic symptoms of urgency but denies frequency burning or urination. Urine is positive for WBCs and RBCs and many bacteria on screening UA, requested full urinalysis. Sample reflexed to culture which did grow pansensitive E coli. The patient is receiving Rocephin 1 g IV for otitis media which will cover her pansensitive E coli. 8. Bipolar 1 disorder, chronic, present on admission, active The patient is drowsy on evaluation, briskly responsive to questions and cooperative. Patient is on multiple psychotropic medications for bipolar 1, depression and anxiety. Continue home regimen of fluoxetine 20 mg daily. Patient is on both methylphenidate 10 mg 4 times daily as well as lorazepam 3 times daily. Due to initial patient level drowsiness will continue to hold lorazepam and continue decreased methylphenidate at 10 mg 3 times daily. Continue patient's home regimen of quetiapine 800 mg at bedtime. VTE prophylaxis: Lovenox Diet: Continue NPO, IVF. prn nausea medications. IV fluid: Normal saline 150 cc/hour. Remain inpatient: anticipate discharge once tolerating a diet which may be between 2-3 days at this time, but this can vary from person to person.
--- NOTE | 2019-09-11 16:00 | DIET.PN ---
Dietary Progress Note Assessment: 54y F admitted for recurring pancreatitis referred to nutrition for same. Pt cannot correlate onset of sx c any particular foods. Noted last time her TGs were much higher than their current 238 H. pt reports being on medication to control TGs. HT: 187.9cm WT: 108.7kg BMI: 30.8 Labs: A1c 7 H, TG 238 H Interventions: Discussed increasing intake of bitter foods (pickled, fermented, bitters, bitter greens, vinegar) to help regulate pancreatic enzyme release when eating rich, fatty, or starchy meals. Diet Order: NPO
[2019-09-11] MEDS: NIFEdipine 30 MG TAB ER PO (16:38)
[2019-09-11] MEDS: LORazepam 2 MG/ML INJ 1 MG IV (18:32)
[2019-09-11] MEDS: CEFTRIAXONE 1 GM/50 ML FROZ.PIGGY IV (21:32)
[2019-09-11] MEDS: QUETIAPINE 200 MG TABLET 400 MG PO (21:57)
[2019-09-12] VITALS (7 sets, daily range): BP systolic 159–191; BP diastolic 69–96; PULSE 59–74; RESP 14–17; TEMP 36.6–36.9; O2SAT 94–97
[2019-09-12] MEDS: HYDROMORPHONE 2 MG INJ IV ×8 (00:37→21:40)
--- NOTE | 2019-09-12 02:55 | PC.NURSE ---
Shift note: Received patient from evening shift. Patient is oriented but drowsy, can make needs known but does not use call light when leaving the bed. Initially told [employer]SE [employer] that she did not want her bed alarm, educated patient on purpose of alarm related to IV narcotic needs and to use call light when she needs to exit the bed. Patient acknowledge the teaching but later exited the bed without calling and stated I don't know why that thing is on. Again educated patient on her safety being our priority and preventing falls. Bed alarm in on and functioning, door is cracked so that alarm is audible to staff. Patient consistently rating her pain 7-8/10 every 2 hours for pain meds but appears to rest comfortably during medication administration. Will continue to monitor patient for safety.
[2019-09-12] MEDS: SODIUM CHLORIDE 0.9% 1,000 ML 150 ML IV ×3 (05:17→19:09)
[2019-09-12] MEDS: KETOROLAC 30 MG/ML VIAL IV ×2 (05:20→11:46)
[2019-09-12 06:07] LABS: Add Manual Diff / Slide Review NO; Basophils Absolute Auto 0 /uL (0-100); Basophils Percent Auto 0.3 % (0-2); Eosinophils Absolute Auto 100 /uL (0-450); Eosinophils Percent Auto 1.1 % (2-4); Hematocrit 32.6 % (36-46); Hemoglobin 11.2 g/dL (12.0-16.0); Lymphocytes Absolute Auto 1000 /uL (1100-4500); Lymphocytes Percent Auto 18.8 % (25-40); Mean Corpuscular HGB Conc 34.4 % (30-36); Mean Corpuscular Hemoglobin 28.1 PG (26-34); Mean Corpuscular Volume 81.6 fL (80-100); Monocytes Absolute Auto 300 /uL (0-900); Monocytes Percent Auto 6.3 % (3-14); Neutrophils Absolute Auto 3800 /uL (1500-7000); Neutrophils Percent Auto 73.5 % (50-75); Platelet Count 195 X10^3/uL (150-400); Red Cell Distribution Width 14.3 % (11.6-14.8); White Blood Cell Count 5.1 X10^3/uL (4.5-11.0)
[2019-09-12 06:16] LABS: Lipase 1187 U/L (23-300)
[2019-09-12 06:18] LABS: Alanine Aminotransferase 63 IU/L (<35); Albumin 3.9 g/dL (3.5-5.0); Albumin Globulin Ratio 1.3 (1.0-2.8); Alkaline Phosphatase 116 U/L (38-126); Aspartate Aminotransferase 56 IU/L (14-36); BUN Creatinine Ratio 23.3 (6-22); Bilirubin Total 0.4 mg/dL (0.2-1.3); Bilirubin Unconjugated 0.2 mg/dL (0.0-1.1); Blood Urea Nitrogen 14 mg/dL (7-17); Calcium 9.1 mg/dL (8.4-10.2); Carbon Dioxide 24 mmol/L (22-32); Chloride 105 mmol/L (98-107); Estimated Glomerular Filt Rate > 60.0 mL/min (>60); Globulin 3.1 g/dL (1.7-4.1); Glucose 117 mg/dL (70-100); HEMOLYSIS < 15 (0-50); Magnesium 1.8 mg/dL (1.6-2.3); Potassium 3.5 mmol/L (3.4-5.1); Sodium 138 mmol/L (137-145)
[2019-09-12] MEDS: METHYLPHENIDATE 5 MG TABLET 10 MG PO (09:17)
[2019-09-12] MEDS: LOSARTAN 50 MG TABLET PO (09:18)
[2019-09-12] MEDS: BISACODYL 10 MG SUPP PR (09:18)
[2019-09-12] MEDS: FLUoxetine 20 MG CAPSULE PO (09:18)
[2019-09-12] MEDS: NIFEdipine 30 MG TAB ER PO ×2 (09:18→15:00)
[2019-09-12] MEDS: METOPROLOL ER 50 MG TABLET 100 MG PO (09:18)
[2019-09-12] MEDS: ENOXAPARIN 40 MG/0.4 ML SYRINGE SUBCUT (09:18)
--- NOTE | 2019-09-12 12:29 | PC.NURSE ---
Assess- Patient is A&Ox3. Given dilaudid x2 thus far and toradol for complaints of back pain. Given ice pack for complaints of headache. Patient took all of medications well. O nausea or emesis. Up with or staffs help and she is steady on her feet. Not as anxious as yesterday. IV dilaudid seems to be helping patient out. Her blood pressure does run high. Resting comfortably, she also requested a suppository and gave it to herself with this RN in the room.
[2019-09-12] MEDS: OXYCODONE IR 10 MG TABLET PO (13:58)
--- NOTE | 2019-09-12 14:38 | P.PN_ITS ---
Subjective Subjective Date Patient Seen: 09/12/19 Time Patient Seen: 12:10 Interval history: Sheela Shaw is a 54-year-old female patient with history significant for history of pancreatitis, hypertension, type 2 diabetes with neuropathy, steatosis, renal insufficiency, and hypersomnia with obstructive sleep apnea, bipolar 1 disorder with major depressive disorder and anxiety who is admitted for recurrent episode of pancreatitis. 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 I have added a fentanyl patch, an today she appeared much more comfortable. She states that she was slightly hungry, and was willing to try clears this morning. Also transition to oxycodone as that seems to help her pain more, and as we try and decrease the amount of IV pain medications that she requires. Her lipase has improved to 1100 today. Exam Vital Signs (past 8 hours): - 09/12/19 08:45 Temperature 98.1 F Pulse Rate 61 Respiratory Rate 16 Blood Pressure 176/96 H Pulse Oximetry 96 Oxygen Delivery Method Room Air Oxygen Flow Rate 0 Narrative Exam Narrative: GENERAL APPEARANCE: well developed, overweight female sitting on bedside, no acute distress. HEENT: Normocephalic, PERRLA, conjunctiva clear, sclera anicteric, EOMs intact without nystagmus, no external your pain on auricle or tragus manipulation, no mastoid tenderness, no sinus tenderness or rhinorrhea, mucous membranes are luz [address] with thickened saliva and pink. NECK/THYROID: neck supple, no JVD, no carotid bruit, no thyromegaly, trachea midline. LYMPH NODES: no cervical or supraclavicular lymphadenopathy. SKIN: [place], warm and dry, no visible lesions. HEART: regular rate and rhythm, S1-S2, no murmur appreciated, no rubs or gallops, brisk capillary refill, no edema LUNGS: clear to auscultation bilaterally, no coarseness crackles or wheezing, no cough present CHEST: Symmetrical movement, no accessory muscle use, good tidal volume. ABDOMEN: Soft, epigastric pain on palpation improved from previously, no organomegaly, no suprapubic tenderness, active bowel tones. BACK: Normal curvature, nontender to palpation, no CVA tenderness on percussion EXTREMITIES: Well-healed surgical scar dorsum right foot, moves all extr emities, strength is 5/5 and symmetrical, no deformities or joint effusions. NEUROLOGIC: AAO x4, cranial nerves II-XII grossly intact, neuropathy with decreased sensation bilateral feet and fingertips, hearing grossly normal to speech. PSYCH: cooperative, appropriate with stable behavior Objective Labs Result Diagrams: 09/12/19 05:54 09/12/19 05:54 Labs: Laboratory Results - last 24 hr 09/12/19 09/12/19 09/12/19 05:54 05:54 05:54 WBC 5.1 RBC 4.00 Hgb 11.2 L Hct 32.6 L MCV 81.6 MCH 28.1 MCHC 34.4 RDW 14.3 Plt Count 195 Neut % (Auto) 73.5 Lymph % (Auto) 18.8 L [place] % (Auto) 6.3 Eos % (Auto) 1.1 L Baso % (Auto) 0.3 Neut # (Auto) 3800 Lymph # (Auto) 1000 L [place] # (Auto) 300 Eos # (Auto) 100 Baso # (Auto) 0 Sodium 138 Potassium 3.5 Chloride 105 Carbon Dioxide 24 BUN 14 Creatinine 0.60 Estimated GFR > 60.0 BUN/Creatinine Ratio 23.3 H Glucose 117 H Calcium 9.1 Magnesium 1.8 Total Bilirubin 0.4 Conjugated Bilirubin 0.0 Unconjugated Bilirubin 0.2 AST 56 H ALT 63 H Alkaline Phosphatase 116 Total Protein 7.0 Albumin 3.9 Globulin 3.1 Albumin/Globulin Ratio 1.3 Lipase 1187 H D Assessment & Plan Assessment & Plan narrative: Sheela Shaw is a 54-year-old female patient with history significant for history of pancreatitis, hypertension, type 2 diabetes with neuropathy, steatosis, renal insufficiency, and hypersomnia with obstructive sleep apnea, bipolar 1 disorder with major depressive disorder and anxiety who is admitted for recurrent episode of pancreatitis. She was advanced to clear liquids today, hospital day 3. 1. Acute on chronic pancreatitis, present on admission, active -MRI findings consistent with chronic pancreatitis. Patient with onset of symptoms night prior to admission with associated nausea vomiting, complaints of epigastric pain radiating to bilateral flanks. 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 Describes pain as same as previous episode. CT abdomen finds acute peripancreatic fat inflammatory changes with chronic appearing pancreatic calcifications, no extrahepatic ductal dilatation, no abscess or necrosis. Gallbladder surgically absent. Lipase was 13,745 and triglycerides are 234. Lipase improved today to 1100. Changed oral dilaudid to oxycodone today in hopes of improving oral pain control to reduce IV medication usage today. Will still continue dilaudid 2 mg every 2 hours as needed for pain. Toradol 15 mg q6 hours as needed as well. Have added fentanyl patches. MRCP showed findings consistent with acute on chronic pancreatitis. But also Mild intrahepatic biliary dilatation, which in the setting of slight liver enla rgement raise the possibility of primary sclerosing cholangitis. Her also has some lobulation with possible cirrhosis. Her alk-phos is not significantly elevated, and clinically she does not appear to have symptoms of PSC. -she will need follow up with outpatient gastroenterology for further evaluation of her liver disease. -antihypertensive medications changed as noted below, statin medication was also discontinued. -she has advanced to clear liquid diet as of 09/12. Continue to advance as gita ated. 2. Diabetes type 2, insulin-dependent, with neuropathy, present on admission, active Patient is insulin dependent type 2 diabetic with neuropathy of feet and fingertips, using Lantus 50 units in the morning and 30 units at night and parental insulin with meals. Blood sugar on admission is 157. Patient is NPO, obtain fingerstick glucose levels every 6 hours and treat with correctional insulin. Since admission her blood glucose values have been near 100. Will follow blood sugar trends and escalate therapy as needed in the setting of acute pancreatitis and as her diet is advanced. A1c 7.1%. 3. Mixed hyperlipidemia, chronic, active Cholesterol panel on admission shows triglycerides at 234, cholesterol 235, LDL 119. Patient reports that she has not been taking omega-3 fish oil S usually does. Will hold home regimen of atorvastatin 80 mg daily while NPO and this medication has been implicated as a possible cause of pancreatitis. Will resume home regimen of fenofibrate 160 mg daily. 4. Essential hypertension, present on admission, active Patient with elevated blood pressure upon arrival at 188/110 and remained elevated upon arrival to the floor at 187/107. Patient with history of renal insufficiency however creatinine upon admission is 0.7 with an EGFR greater than 60. Patient routinely takes losartan 50 mg daily initially ordered to take 100 mg but will discontinue as this has been implicated as a possible cause of pancreatitis. Changed to nifedipine which will be increased to 60 mg today. Continue home regimen of metoprolol succinate 100 mg daily. Will follow blood pressures to assess adequacy of treatment. Will work on pain control as noted above. 5. Elevated transaminases, non alcoholic steatosis, chronic, present on admission, active. Patient with elevated transaminases on admission with a total bilirubin of 0.6, AST of 125, ALT of 128 and alkaline phosphatase of 133. LFTs are continuing to improve.. Abdominal ultrasound notes heterogeneous liver and possible cirrhotic changes. CT abdomen finds liver is normal in size and enhancement with subtle surface nodularity and prominent left lobe the liver suggesting possible cirrhotic changes. Mild intrahepatic ductal dilatation. MRCP as noted above. 6. Right otitis media, acute, present on admission, resolved Patient complains of right ear pain, stating it ?feels like it is full of water?. Patient started on ceftriaxone 1 g IV in the emergency department. Continued ceftriaxone 1 g IV for 3 total doses as patient is NPO. 7. Probable urinary tract infection, acute, present on admission, resolved Patient reported what sounds to be chronic symptoms of urgency but denies frequency burning or urination. Urine is positive for WBCs and RBCs and many bacteria on screening UA, requested full urinalysis. Sample reflexed to culture which did grow pansensitive E coli. The patient is receiving Rocephin 1 g IV for otitis media which covered her pansensitive E coli. 8. Bipolar 1 disorder, chronic, present on admission, active The patient is drowsy on evaluation, briskly responsive to questions and c ooperative. Patient is on multiple psychotropic medications for bipolar 1, depression and anxiety. Continue home regimen of fluoxetine 20 mg daily. Patient no longer taking methylphenidate, will discontinue. Continue patient's home regimen of quetiapine 800 mg at bedtime. VTE prophylaxis: Lovenox Diet: Advanced to clears, possible advancement to low fat diet soon. IV fluid: Decrease from 150 cc per hour to 75. Remain inpatient: anticipate discharge once tolerating a diet which may be betwe en 2-3 days at this time.
--- NOTE | 2019-09-12 16:18 | PC.NURSE ---
Addendum entered by Denise Trejo R.N. 09/12/19 22:13: Medicating pt per sep for elevated abd pain level. at 1929 pt reported she would like to have Toradol with next administration; pt called for analgesics at 2129. Declined administration of toradol and requested IV dilaudid, states I know that works and that's the one I want Original Note: Assumed care of pt at 1500. Pt resting in bed during stating the oral analgesics given have not been effective and requests IV Dilaudid. Medicated per sep. Discussed medication options and to create a plan of analgesics once pt is home. Pt verbalized understanding of the need to trans from IV to PO analgesics but doesn't know which one will work because she has tried many and none have effectively managed her high pain level. IVF infusing per orders. Supportive spouse at bedside. Pt verbalized she will call for needs.
[2019-09-12] MEDS: LORazepam 2 MG/ML INJ 1 MG IV (21:41)
[2019-09-12] MEDS: QUETIAPINE 200 MG TABLET 400 MG PO (21:47)
[2019-09-13 00:08] VITALS: BP 148/75; PULSE 64; RESP 16; TEMP 35.9; O2SAT 95
--- NOTE | 2019-09-13 00:55 | PC.NURSE ---
Addendum entered by Nicole Head R.N. 09/13/19 06:20: Patient reporting 7/10 pain, offered PO oxycodone to which patient accepted. Made no other complaints or requests even when asked if there was anything else she needed. Patient had uneventful night and pain seemed to be managed on oral pain meds as on hourly checks patient appeared to be resting comfortably. Addendum entered by Nicole Head R.N. 09/13/19 02:35: Patient reporting 7/10 pain requesting IV Dilaudid. Asked patient to try the orals first to which patient agreed. Will continue to monitor. Original Note: Shift note: Received patient from evening shift. Patient medicated per SEP at 2140 with IV Dilaudid and IV Ativan, had refused oral pain meds per nursing report. At time of assessment patient appeared to be resting comfortably and made no complaints of pain, was cooperative with assessment but did not open her eyes or address this RN. Lung sounds clear, bp elevated but WNL for patient, HR regular, bowel tones active. Patient is a high fall risk because she does not call to get out of bed. 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 Will attempt to offer oral pain meds when/if patient calls for pain management and continue to monitor for patient's safety.
[2019-09-13] MEDS: OXYCODONE IR 10 MG TABLET PO ×4 (02:32→12:56)
[2019-09-13 02:38] VITALS: BP 162/109; PULSE 71; RESP 16; TEMP 36.9; O2SAT 100
[2019-09-13] MEDS: INSULIN ASPART 100 UNIT/ML INSULN PEN SUBCUT (06:11)
[2019-09-13 06:20] LABS: Add Manual Diff / Slide Review NO; Basophils Absolute Auto 0 /uL (0-100); Basophils Percent Auto 0.3 % (0-2); Eosinophils Absolute Auto 0 /uL (0-450); Eosinophils Percent Auto 0.8 % (2-4); Hematocrit 35.8 % (36-46); Hemoglobin 12.5 g/dL (12.0-16.0); Lymphocytes Absolute Auto 900 /uL (1100-4500); Lymphocytes Percent Auto 15.3 % (25-40); Mean Corpuscular HGB Conc 34.8 % (30-36); Mean Corpuscular Hemoglobin 28.2 PG (26-34); Mean Corpuscular Volume 81.1 fL (80-100); Monocytes Absolute Auto 300 /uL (0-900); Monocytes Percent Auto 4.7 % (3-14); Neutrophils Absolute Auto 4500 /uL (1500-7000); Neutrophils Percent Auto 78.9 % (50-75); Platelet Count 218 X10^3/uL (150-400); Red Blood Cell Count 4.41 X10^6/uL (4.0-5.2); Red Cell Distribution Width 14.6 % (11.6-14.8); White Blood Cell Count 5.7 X10^3/uL (4.5-11.0)
[2019-09-13 06:27] LABS: Alanine Aminotransferase 60 IU/L (<35); Albumin 4.4 g/dL (3.5-5.0); Albumin Globulin Ratio 1.3 (1.0-2.8); Alkaline Phosphatase 140 U/L (38-126); Aspartate Aminotransferase 52 IU/L (14-36); BUN Creatinine Ratio 21.7 (6-22); Bilirubin Total 0.5 mg/dL (0.2-1.3); Bilirubin Unconjugated 0.3 mg/dL (0.0-1.1); Blood Urea Nitrogen 13 mg/dL (7-17); Calcium 9.6 mg/dL (8.4-10.2); Carbon Dioxide 24 mmol/L (22-32); Chloride 101 mmol/L (98-107); Estimated Glomerular Filt Rate > 60.0 mL/min (>60); Globulin 3.3 g/dL (1.7-4.1); Glucose 153 mg/dL (70-100); HEMOLYSIS < 15 (0-50); Magnesium 1.8 mg/dL (1.6-2.3); Potassium 3.6 mmol/L (3.4-5.1); Sodium 137 mmol/L (137-145); Total Protein 7.7 g/dL (6.3-8.2)
[2019-09-13] MEDS: NIFEdipine 30 MG TAB ER 60 MG PO (06:49)
[2019-09-13 07:30] VITALS: BP 187/109; PULSE 83; RESP 20; TEMP 37.1; O2SAT 100
[2019-09-13 07:48] LABS: Lipase 1451 U/L (23-300)
[2019-09-13] MEDS: KETOROLAC 30 MG/ML VIAL IV (07:57)
[2019-09-13] MEDS: LORazepam 2 MG/ML INJ 1 MG IV (07:57)
--- NOTE | 2019-09-13 08:21 | PC.NURSE ---
Addendum entered by Carissa Anaya R.N. 09/13/19 10:41: Patient given oxycodone for pain and discomfort. She may be able to discharge home today. More calm now that is here but teary eyed. Nilam from health social work professor into see patient and she would like to go home. Original Note: Patient anxious and hurting this morning... Will try to stay way from iv dilaudid as she is most likely getting closer to going home... Gave patient toradol and iv ativan to help calm her and this has helped. BT hypoactive, she is tolerating a clear liquid diet... Slight nausea before but resolved. Sitting up at side of the bed and ivf, iv patent.
[2019-09-13] MEDS: METOPROLOL ER 50 MG TABLET 100 MG PO (08:50)
[2019-09-13] MEDS: FLUoxetine 20 MG CAPSULE PO (08:50)
[2019-09-13] MEDS: ENOXAPARIN 40 MG/0.4 ML SYRINGE SUBCUT (08:50)
[2019-09-13] MEDS: SODIUM CHLORIDE 0.9% 1,000 ML 75 ML IV (08:51)
[2019-09-13] MEDS: FENOFIBRATE 160 MG TABLET PO (09:43)
--- NOTE | 2019-09-13 11:28 | CM.DPNOTE ---
DCP/continued: Spoke with Dr. Carney in AM rounds. She anticipates that patient will be cleared to d/c home today. Met with patient explained role. Patient reports that she is ready to go home. Patient has supportive spouse at bedside. Patient emotional over new diagnosis of pancreatitis. Patient continues to report pain but believes that she would be better off at home. Patient aware of the importance of close follow up with PCP and specialist. Dr. Carney plans to prescribe small amount of narcotics for home. Patient will be notified that she will need to follow up closely with PCP for any refills. P: Home today. MIGDALIA Paredes
[2019-09-13] MEDS: OXYCODONE IR 5 MG TABLET PO (12:05)
--- NOTE | 2019-09-13 12:54 | P.DS_ITS ---
History of Present Illness History of Present Illness Date Patient Seen: 09/09/19 Chief complaint: upper abd pain Narrative: Written by Kings WINTER: Ms. Sheela Shaw is a 54-year-old female patient with history significant for history of pancreatitis, hypertension, type 2 diabetes with neuropathy, steatosis, renal insufficiency, and hypersomnia with obstructive sleep apnea, bipolar 1 disorder with major depressive disorder and anxiety who presents to the hospital for complaints of abdominal pain. The patient states she had onset of abdominal pain with associated nausea vomiting x3 last night. Her nausea resolved following emesis of food material. Upon arrival to the hospital the patient complains of epigastric pain 8/10 described as constant sharp and achy. The patient has had previous episodes of pancreatitis last episode is approximately 10 years ago per patient and reports her present pain is consistent with prior episode. 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 She has previously had elevated triglycerides and is on medication for same but has not been taking [place] 3 fish oil as she typically does. She denies associated complaints of recent illness, fevers or chills, headaches or dizziness, nasal congestion or sore throat. She denies chest pain or palpitations. She denies shortness of breath though she states taking a deep breath increases her epigastric pain. She denies cough or wheezing or ex ertional dyspnea. She has abdominal pain and had nausea vomiting as above but denies constipation or diarrhea. She does describe urinary urgency but denies burning or hematuria. She is independent in her ADLs and uses no assistive devices. Upon arrival to the ER the patient is afebrile with a temperature 97.4?, heart rate of 85, blood pressure 188/110, respirations 16 saturating 95% on room air. The patient under went abdominal ultrasound finding heterogeneous liver with possible cirrhotic changes, no notation of ductal dilatation and no comment on pancreas. CT of the abdomen finds mild liver nodularity of the left lobe consistent with cirrhosis, mild intrahepatic biliary ductal dilatation, extrahepatic ducts are not dilated, chronic pancreatitis with diffuse peripancreatic fat inflammatory changes but no abscess or necrosis, scattered pancreatic calcifications, borderline splenomegaly, kidneys are found to be normal, elevation of the right hemidiaphragm. On laboratory analysis the patient is found have a normal white count of 9.4, hemoglobin of 12.9, hematocrit of 37.3, platelets of 236. Electrolytes are within normal limits with a BUN of 21 and creatinine is 0 7 for an EGFR of greater than 60 in a BUN creatinine ratio 30. Her nonfasting glucose is 157. Her total bilirubin is 0.6, AST is 125, ALT is 128 and alkaline phosphatase 133. She has an elevated lipase at 13,745. Triglycerides are 234, cholesterol 235, LDL is 119. Total CK is 145 with an MB of 2.33 and an index of 1.6 and troponin is negative at less than 0.012. A screening UA completed in the ER is positive for RBCs and WBCs and many bacteria as reflexed to culture. The patient is admitted to the medicine service for acute and recurrent pancreatitis. Discharge Providers Provider Date of admission: 09/09/19 20:17 Discharge Date: 09/13/19 Primary care physician: Neftaly Tomlinson MD Consults: 09/09/19 21:05 Consult to Dietitian, Adult Routine Comment: Reason For Exam: Recurrent pancreatitis 09/09/19 21:06 Consult to Discharge Planning Routine Comment: Consult to Physician Routine Comment: Consulting Provider: Mark Schilling Reason for consultation: Acute pancreatitis, history sphincter of Oddi dysfunction Has provider been notified: Yes Discharge provider: Missy Carney DO Summary Hospital Course Discharge Diagnosis: 1. Acute on chronic pancreatitis, present on admission. Resolving. 2. Chronic pain on suboxone with mild withdrawal, present on admission. Active. 3. Diabetes type 2, insulin-dependent, with neuropathy, present on admission. Stable. 4. Mixed hyperlipidemia, chronic, present on admission. Stable. 5. Hypertension, acute on chronic, present on admission. Improved. 6. HERRING, chronic, present on admission, active. 7. Right otitis media, acute, present on admission. Resolved. 8. Probable asymptomatic bacturia versus urinary tract infection, present on admission. Stable. 9. Bipolar 1 disorder, chronic, present on admission. Stable. Hospital Course: Sheela Shaw is a 54-year-old female with a past medical history significant for hypertension, hyperlipidemia, diabetes mellitus type 2, insulin using, bi polar 1 disorder, major depressive disorder, anxiety, chronic pain syndrome on Suboxone, HERRING, hypersomnia with obstructive sleep apnea and chronic pancreatitis who is admitted for recurrent episode of pancreatitis. 1. Acute on chronic pancreatitis, present on admission. Resolving. -Patient presented with epigastric pain radiating to bilateral flanks with associated nausea and vomiting similar to previous epidsodes. Prior episodes of pancreatitis reportedly related to sphincter of Oddi dysfunction. -CT abdomen and pelvis with contrast demonstratedvacute peripancreatic fat inflammatory changes with chronic appearing pancreatic calcifications, no extrahepatic ductal dilatation, no abscess or necrosis. Gallbladder surgically absent. -Initial lipase was 13,745 and triglycerides are 234. Lipase trended down to 1400. No need to trend as lipase is not accurate marker in chronic pancreatitis. Patient no longer having severe epigastric pain on exam. No rebound. -Discharged on oxycodone 15 mg every 8 hours for severe pain qty #20. Patient is known to have previously been on high dose narcotics with oxycontin and oxycodone before being placed on Suboxone. Patient does not appear to be in discomfort due to pancreatitis but rather suboxone/narcotic withdraw endorsing all over body aches. Discontinued IV dilaudid and fentanyl patch as patient will need to work with Suboxone prescriber in next several days to restart suboxone. Continued Toradol 15 mg every 6 hours as needed for pain. -MRCP demonstrated expected changes of mild acute pancreatitis, no visible filling defects in the common duct or pancreatic duct, a tiny sidebranch dilatation in the pancreatic uncinate process is nonspecific, most likely sequela of chronic pancreatitis; mild intrahepatic biliary dilatation, in the setting of slight liver enlargement, raises the possibility for primary sclerosing cholangitis. Her alk-phos is not significantly elevated, and clinically she does not appear to have symptoms of PSC. -Recommend expeditied outpatient gastroenterology referral for further evaluation of her pancreatic and liver disease. -Held losartan and statin in setting of pancreatitis. Recommend patient follow- up with PCP and refrral to GI before resuming. -Diet was advanced and tolerating full liquid/soft diet. 2. Chronic pain on suboxone with mild withdrawal, present on admission. Active. -Discharged on oxycodone 15 mg every 8 hours for severe pain qty #20. Patient is known to have previously been on high dose narcotics with oxycontin and oxycodone before being placed on Suboxone. Patient does not appear to be in discomfort due to pancreatitis but rather suboxone/narcotic withdraw endorsing all over body aches. Discontinued IV dilaudid and fentanyl patch as patient will need to work with Suboxone prescriber in next several days to restart suboxone. Continued Toradol 15 mg every 6 hours as needed for pain. 3. Diabetes type 2, insulin-dependent, with neuropathy, present on admission. Stable. -Patient is insulin dependent type 2 diabetic with neuropathy of feet and fingertips. -Hemoglobin A1c 7.1%. -Continued every 6 hour blood glucose checks while NPO and low dose correctional scale insulin. Recommended resuming ACHS blood glucose checks and half normal Lantus dose until tolerating normal diet at discharge. 4. Mixed hyperlipidemia, chronic, present on admission. Stable. -Cholesterol panel demonstrated poor lipid control with triglycerides at 234, cholesterol 235, LDL 119. -Patient reports that she has not been taking omega-3 fish oil as usually does. -Discontinued atorvastatin 80 mg daily as this has been implicated as a possible cause of pancreatitis and will need to discuss with PCP or GI before restarting. -Continued fenofibrate 160 mg daily. 5. Hypertension, acute on chronic, present on admission. Improved. -Patient with elevated BP throughout hospitalization likely related to pain and suboxone withdrawal. Continued pain management as above with BP slightlyimproved. -Patient routinely takes losartan but discontinued as this has been implicated as a possible cause of pancreatitis and changed to amlodipine 10 mg daily. Continued home metoprolol succinate 100 mg daily. 6. HERRING, chronic, present on admission, active. -Patient with elevated transaminases on admission with a total bilirubin of 0.6, AST of 125, ALT of 128 and alkaline phosphatase of 133. LFTs continued to improve. -Abdominal ultrasound notes heterogeneous liver and possible cirrhotic changes. -CT abdomen finds liver is normal in size and enhancement with subtle surface nodularity and prominent left lobe the liver suggesting possible cirrhotic changes. Mild intrahepatic ductal dilatation. -MRCP as noted above. 7. Right otitis media, acute, present on admission. Resolved. -Patient complains of right ear pain, stating it ?feels like it is full of water?. -Received ceftriaxone 1 g IV x 1 in ED. Continued ceftriaxone 1 g IV x 3 doses to complete treatment. 8. Probable asymptomatic bacturia versus urinary tract infection, present on admission. Stable. -Patient reported chronic symptoms of urgency but denies urinary frequency,dysuria or burning. -Urine culture grew pansensitive E coli. -Patient received ceftriaxone 1 g IV for otitis media which covered pansensitive E. coli. 9. Bipolar 1 disorder, chronic, present on admission. Stable. -Patient is on multiple psychotropic medications for bipolar 1, depression and anxiety. -Continued home fluoxetine 20 mg daily and quetiapine 800 mg at bedtime. Exam Vital Signs (past 8 hours): - 09/13/19 07:30 Temperature 98.7 F Pulse Rate 83 Respiratory Rate 20 Blood Pressure 187/109 H Pulse Oximetry 100 Oxygen Delivery Method Room Air Oxygen Flow Rate 0 Narrative Exam Narrative: General: Middle-aged female lying in bed and in no acute distress, well- developed, well-nourished, appears to be in mild narcotic withdraw while receiving high dose narcotic, mild diaphoresis and flushing, mildly withdrawn but appropriately interactive. Patient reports she would like to go home and would be more comfortable in her own bed. HEENT: Normocephalic, atraumatic. External ears without defect. Pupils equal, round, and reactive to light. Anicteric sclerae, moist conjunctivae, and no lid lag. Oropharynx free of erythema and cobble stoning with moist mucosa. Neck: Supple with full range of motion. No jugular venous distension. No lymphadenopathy or thyromegaly. Cardiovascular: Regular rate and rhythm without murmurs, rubs, or gallops appreciated. Pulmonary: Clear to auscultation bilaterally without crackles, wheezes, or rhonchi. Normal respiratory effort with no use of accessory muscles. Abdomen: Soft, bowel sounds present, nontender, nondistended. No hepatosplenomegaly or masses appreciated. Extremities: No clubbing, cyanosis, or edema. Skin: Normal temperature, turgor, and texture; no rash, ulcers, or subcutaneous nodules appreciated. Neurological: Cranial nerves grossly intact. Psychiatric: Depressed mood, mildly withdrawn, and flat affect. Alert and oriented to person, place, and time. Objective Labs Result Diagrams: 09/13/19 05:58 09/13/19 05:58 Labs: Laboratory Results - last 24 hr 09/13/19 09/13/19 09/13/19 05:58 05:58 05:58 WBC 5.7 RBC 4.41 Hgb 12.5 Hct 35.8 L MCV 81.1 MCH 28.2 MCHC 34.8 RDW 14.6 Plt Count 218 Neut % (Auto) 78.9 H Lymph % (Auto) 15.3 L [place] % (Auto) 4.7 Eos % (Auto) 0.8 L Baso % (Auto) 0.3 Neut # (Auto) 4500 Lymph # (Auto) 900 L [place] # (Auto) 300 Eos # (Auto) 0 Baso # (Auto) 0 Sodium 137 Potassium 3.6 Chloride 101 Carbon Dioxide 24 BUN 13 Creatinine 0.60 Estimated GFR > 60.0 BUN/Creatinine Ratio 21.7 Glucose 153 H Calcium 9.6 Magnesium 1.8 Total Bilirubin 0.5 Conjugated Bilirubin 0.0 Unconjugated Bilirubin 0.3 AST 52 H ALT 60 H Alkaline Phosphatase 140 H Total Protein 7.7 Albumin 4.4 Globulin 3.3 Albumin/Globulin Ratio 1.3 Lipase 1451 H Discharge Plan Discharge Plan Patient Disposition: Home Discharge comment: You are being discharged home. You had another flare of your chronic pancreatitis. You are on high-dose narcotic which carries a high risk of mortality. You were prescribed oxycodone 15 mg every 8 hours as needed for severe abdominal pain to be used as sparingly as possible. Please call and/or follow-up with your pain specialist, Dr. Ford, regarding continuing pain medication with oxycodone vs. suboxone and when to restart your Suboxone and at what dose. You will likely be in pain until your Suboxone is restarted and will have to go without pain medication for 6-12 hours before restarting. Your losartan and atorvastatin have been held and are not to be restarted until you follow-up with your primary care provider or a GI specialist as these may cause pancreatitis. You have been prescribed amlodipine 10 mg daily to treat your hypertension. Please follow-up with your PCP, Dr. Tomlinson, in the next 1 week regarding your hospitalization. Your losartan and atorvastatin have been held and are not to be restarted until you follow-up with your primary care provider or a GI specialist as these may cause pancreatitis. You have been prescribed amlodipine 10 mg daily to treat your hypertension. Please follow-up with your PCP, Dr. Tomlinson, in the next 1 week regarding your hospitalization. Your losartan and atorvastatin have been held and are not to be restarted until you follow-up with your primary care provider or a GI specialist as these may cause pancreatitis. You have been prescribed amlodipine 10 mg daily to treat your hypertension. Please follow-up with your PCP, Dr. Tomlinson, in the next 1 week regarding your hospitalization. Please continue to slowly advance your diet as tolerated. You may need to be clear liquids as tolerated (slow with sips and stop if pain is worsening) for the next several days before advancing your diet slowly. If you have not taken in fluids for over 72 hours or develop fever (101 F or higher) please see a medical provider. Discharge orders & Medications Prescriptions: New oxycodone 15 mg tablet 15 mg PO Q8H PRN (Reason: pain) Qty: 20 RF: 0 amlodipine 10 mg tablet 10 mg PO DAILY Qty: 30 RF: 0 Continued metoprolol succinate [Toprol XL] 100 MG tablet extended release 24 hr 100 mg PO DAILY Qty: 0 RF: 0 fenofibrate 160 MG tablet 160 mg PO DAILY Qty: 0 RF: 0 Lantus U-100 Insulin 100 UNIT/1 ML solution 50 unit SQ DAILY Qty: 0 RF: 0 Lantus U-100 Insulin 100 UNIT/1 ML solution 30 unit SQ QPM Qty: 0 RF: 0 insulin aspart U-100 [Novolog U-100 Insulin aspart] 100 UNIT/1 ML solution 10 - 25 unit SQ TIDAC Qty: 0 RF: 0 metoclopramide HCl [Reglan] 5 MG tablet 10 mg PO QID PRN (Reason: Nausea) Qty: 0 RF: 0 quetiapine [Seroquel] 400 MG tablet 800 mg PO BEDTIME Qty: 0 RF: 0 quetiapine [Seroquel] 100 MG tablet 100 mg PO TID PRN (Reason: episodes) Qty: 0 RF: 0 lorazepam 2 MG tablet 4 mg PO TID Qty: 0 RF: 0 methylphenidate HCl 10 mg tablet 10 mg PO QID RF: 0 omega-3 acid ethyl esters 1 gram Capsule 2 cap PO BID RF: 0 tizanidine 2 mg Tablet 2 mg PO Q8H PRN (Reason: Spasms) RF: 0 fluoxetine 20 mg capsule 20 mg PO DAILY RF: 0 Discontinued atorvastatin 80 mg Tablet 80 mg PO DAILY RF: 0 losartan 50 mg tablet 50 mg PO DAILY Qty: 30 RF: 0 Follow up/Referrals: Neftaly Tomlinson MD [Primary Care Provider] - 3-5 Days Diet/Activity/Treatments Diet: Diet as Tolerated, Carb-consistent/Diabetic, Low-fat, Low-sodium and Low- cholesterol Diet comment: clear liquid and slowly advance next 2-3 days Activity: Activity as tolerated Visit Report/Discharge Packet Instructions: Fat-Restricted Diet, Low-Fiber/Low-Residue Diet, Soft Diet, DI for Pancreatitis Discharge Data Primary Care Provider: Neftaly Tomlinson Discharges patient from system. Discharge Date/Time: 09/13/19 13:42
== END 2019-09-13 13:42 | disposition home or self-care (01) | DRG 439 ==
LOC: ED 19:17 → AC 20:18
PROVIDERS: Internal Medicine; Admitting Provider Nurse Practitioner Adult Health; Emergency Provider Nurse Practitioner Family; PCP Internal Medicine; Referring Provider Nurse Practitioner Family; Visit Provider Nurse Practitioner Adult Health
DX: K85.90 Acute pancreatitis without necrosis or infection, unspecified (principal); N39.0 Urinary tract infection, site not specified; F33.9 Major depressive disorder, recurrent, unspecified; E11.40 Type 2 diabetes mellitus with diabetic neuropathy, unspecified; Z79.4 Long term (current) use of insulin; H66.91 Otitis media, unspecified, right ear; F41.9 Anxiety disorder, unspecified; I10 Essential (primary) hypertension; E78.2 Mixed hyperlipidemia
CPT/HCPCS: 36415; 74177; 74181; 76705; 80048; 80053; 80061; 80076; 81003; 81015; 82550; 82553; 82962; 83036; 83690; 83735; 84484; 85025; 87040; 87077; 87086; 87186; 93005; 96374; 96375; 96376; 99285; C9113; J1170; J1650; J1885; J2060; J2405; Q9967

== ENCOUNTER → 2020-01-04 13:15 | Outpatient (CLI) | payer OTHER, SELFPAY ==
[2019-09-09 20:20] VITALS: BMI 30.8
[2020-01-04 13:58] LABS: Add Manual Diff / Slide Review NO; Basophils Absolute Auto 0 /uL (0-100); Basophils Percent Auto 0.3 % (0-2); Eosinophils Absolute Auto 0 /uL (0-450); Eosinophils Percent Auto 0.4 % (2-4); Hematocrit 38.6 % (36-46); Hemoglobin 13.2 g/dL (12.0-16.0); Lymphocytes Absolute Auto 1000 /uL (1100-4500); Lymphocytes Percent Auto 11.7 % (25-40); Mean Corpuscular HGB Conc 34.1 % (30-36); Mean Corpuscular Hemoglobin 28.2 PG (26-34); Mean Corpuscular Volume 82.7 fL (80-100); Monocytes Absolute Auto 400 /uL (0-900); Neutrophils Absolute Auto 6700 /uL (1500-7000); Neutrophils Percent Auto 82.6 % (50-75); Platelet Count 292 X10^3/uL (150-400); Red Blood Cell Count 4.66 X10^6/uL (4.0-5.2); Red Cell Distribution Width 14.3 % (11.6-14.8); White Blood Cell Count 8.1 X10^3/uL (4.5-11.0)
[2020-01-04 14:05] LABS: Hemoglobin A1C% w Est Avg Glu 5.3 % (4.0-6.0)
[2020-01-04 14:15] LABS: Alanine Aminotransferase 53 IU/L (<35); Albumin 5.1 g/dL (3.5-5.0); Albumin Globulin Ratio 1.6 (1.0-2.8); Alkaline Phosphatase 92 U/L (38-126); Aspartate Aminotransferase 80 IU/L (14-36); BUN Creatinine Ratio 18.2 (6-22); Bilirubin Total 0.8 mg/dL (0.2-1.3); Blood Urea Nitrogen 14 mg/dL (7-17); Calcium 10.1 mg/dL (8.4-10.2); Carbon Dioxide 24 mmol/L (22-32); Chloride 101 mmol/L (98-107); Estimated Glomerular Filt Rate > 60.0 mL/min (>60); Globulin 3.1 g/dL (1.7-4.1); Glucose 99 mg/dL (70-100); HEMOLYSIS < 15 (0-50); Potassium 4.1 mmol/L (3.4-5.1); Sodium 138 mmol/L (137-145); Total Protein 8.2 g/dL (6.3-8.2)
== END ==
PROVIDERS: PCP Internal Medicine; Referring Provider Internal Medicine; Visit Provider Internal Medicine
DX: K85.90 Acute pancreatitis without necrosis or infection, unspecified (principal); I10 Essential (primary) hypertension; E11.9 Type 2 diabetes mellitus without complications
CPT/HCPCS: 36415; 80053; 83036; 85025

== ENCOUNTER 2020-01-04 19:36 | Emergency (ER) | payer OTHER, SELFPAY ==
[2019-09-09 20:20] VITALS: BMI 30.8
[2020-01-04 19:45] VITALS: BP 199/109; PULSE 77; RESP 27; O2SAT 97
--- NOTE | 2020-01-04 19:54 | ED.ABDPAIN ---
HPI - Abdominal Pain General Chief Complaint: Abdominal Pain Stated Complaint: vomiting, stomach hurting since she woke up Time Seen by Provider: 01/04/20 19:54 Source: patient Mode of arrival: Ambulatory Limitations: no limitations History of Present Illness HPI narrative: The patient presents with nausea vomiting for 2 days. She has had 2 episodes of emesis today. She has had no hematemesis, no bile in the vomiting. She has upper abdominal cramping. She has a prior history of pancreatitis. She does not use alcohol. She is status post cholecystectomy, years ago. She has had no left over foods, she has not been eating now. Her has not been ill. There is no obvious food exposure. She has no fever chills. She has no URI symptoms, no cough. She has no chest pain. She is on Buprenorphine. She has weaned down to 1.5 mg daily. She was admitted here August 2019 with acute pancreatitis, lipase level of 1400. Follow-up CT showed evidence of acute as well as chronic pancreatitis. An MRI further unified chronic pancreatitis. Related Data Home Medications Medication Instructions Recorded Confirmed Lantus U-100 Insulin 30 unit SQ QPM #0 09/19/17 09/09/19 Lantus U-100 Insulin 50 unit SQ DAILY #0 09/19/17 09/09/19 fenofibrate 160 mg PO DAILY #0 09/19/17 09/09/19 insulin aspart U-100 [Novolog 10 - 25 unit SQ TIDAC #0 09/19/17 09/09/19 U-100 Insulin aspart] lorazepam 4 mg PO TID #0 09/19/17 09/09/19 metoclopramide HCl [Reglan] 10 mg PO QID PRN #0 09/19/17 09/09/19 metoprolol succinate [Toprol XL] 100 mg PO DAILY #0 09/19/17 09/09/19 quetiapine [Seroquel] 100 mg PO TID PRN #0 09/19/17 09/09/19 quetiapine [Seroquel] 800 mg PO BEDTIME #0 09/19/17 09/09/19 fluoxetine 20 mg capsule 20 mg PO DAILY 10/10/18 09/09/19 methylphenidate HCl 10 mg PO QID 04/17/19 09/09/19 omega-3 acid ethyl esters 2 cap PO BID 04/17/19 09/09/19 tizanidine 2 mg PO Q8H PRN 04/17/19 09/09/19 Previous Rx's Medication Instructions Recorded amlodipine 10 mg PO DAILY #30 tab 09/13/19 oxycodone 15 mg PO Q8H PRN #20 tab 09/13/19 ondansetron 4 mg PO Q4H PRN 1 Days #20 tab 01/05/20 tramadol 50 mg PO Q6-8H PRN #20 tab 01/05/20 Allergies Allergy/AdvReac Type Severity Reaction Status Date / Time No Known Drug Allergies Allergy Verified 06/10/19 18:15 Review of Systems Review of Systems ROS Unobtainable: All systems reviewed & are unremarkable except as noted in HPI and below Constitutional Constitutional: Denies chills, Denies fever(s), Denies headache(s) and Denies weakness Eyes Eyes: Denies change in vision ENT Ears, Nose, Mouth, and Throat: Denies headache(s) and Denies sore throat Cardiovascular Cardiovascular: Denies chest pain, Denies irregular heart rhythm, Denies lightheadedness, Denies dyspnea and Denies orthopnea Respiratory Respiratory: Denies cough and Denies dyspnea Gastrointestinal Gastrointestinal: Reports abdominal pain, Denies change in bowel habits, Denies diarrhea, Reports nausea and Reports vomiting Genitourinary Genitourinary: Denies dysuria Genitourinary: Denies dysuria Musculoskeletal Musculoskeletal: Denies back pain Integumentary/Breasts Skin/Breast: Denies rash and Denies wounds Neurologic Neurologic: Denies headache(s) and Denies weakness Patient History Medical History (Updated 01/05/20 @ 01:49 by Paul Gutierrez MD) Anxiety (Chronic) Arthritis (Acute) Bipolar 1 disorder (Chronic) Chronic pancreatitis (Acute) History of pancreatitis (Resolved) History of pulmonary embolism (Acute) Hypercholesterolemia with hypertriglyceridemia (Chronic) Hypersomnia (Chronic) Hypertension (Chronic) Major depressive disorder (Chronic) Neuropathy, diabetic (Acute) Nonalcoholic steatohepatitis (HERRING) (Chronic) Obesity (Chronic) Obstructive sleep apnea of adult (Chronic) Renal insufficiency (Acute) Snoring (Inactive) Type 2 diabetes mellitus (Chronic) Surgical History Gastrocnemius equinus of right lower extremity (Acute) Family History Father COPD (chronic obstructive pulmonary disease) Mother Hypertension Sister Fibromyalgia Social History marital status: details: rasheed Gaitan household members: spouse and children lives independently: Yes caregiver/support person: No occupational status: unemployed Smoking Status: Never smoker alcohol intake: current substance use type: marijuana Smoking Status: Never smoker alcohol intake frequency: 0-2 drinks per day Substance Use Type: marijuana Exam Initial Vital Signs Initial Vital Signs: Vital Signs Pulse Rate 77 01/04/20 19:45 Respiratory Rate 27 H 01/04/20 19:45 Blood Pressure 199/109 H 01/04/20 19:45 Pulse Oximetry 97 01/04/20 19:45 Const General: cooperative and well developed Nutritional Appearance: well nourished HENMT Mouth: oral mucosae normal Throat: posterior oropharynx normal Eyes Conjunctivae: conjunctivae normal Sclera: sclerae normal and scleral abnormality (No icterus) Resp Effort & Inspection: normal respiratory effort and able to speak in complete sentences Auscultation: clear to auscultation bilaterally, no rales, no rhonchi and no wheezes Cardio Rate: regular rate Rhythm: regular rhythm Heart Sounds: S1 normal, S2 normal, no click, no gallops, no murmurs and no rubs Pulses: normal peripheral pulses GI Palpation: no hepatosplenomegaly, No mass and tender (Epigastric tenderness without distention, guarding or rebound.) Auscultation: normal bowel sounds Back/Spine/Pelvis Back: No CVA tenderness Skin General: no rashes or lesions noted, No jaundice and No petechiae Neuro General: patient alert, patient oriented x3, gait normal and no focal motor deficits Speech: speech normal Extrem General: no pedal edema and no calf tenderness Psych Appearance: well kempt Mental Status: mental status grossly normal Attitude: cooperative Thought Content: normal Course Course Course Narrative: The patient was initially given Zofran and Toradol. She was then given Reglan better off for added nausea control. She is not pain-free at the time discharge but she has improved. Her admission and August 2019 was reviewed. Acute pancreatitis was obvious, further review of the CT and MRI results identified chronic pancreatitis. I discussed this information with the patient and her . I discharged her on tramadol and Zofran. I have advised consultation with freelance programmer/app developer. Orders Ordered: ED Orders 01/04/20 19:45 EKG-12 Lead Stat 01/04/20 19:55 Complete Blood Count AUTO DIFF Stat Comprehensive Metabolic Panel Stat Lipase Stat 01/04/20 20:45 Urinalysis and Microscopic Stat Discontinued Medications Diphenhydramine HCl (Benadryl) 25 mg IV NOW ONE Stop: 01/04/20 23:55 Last Admin: 01/05/20 00:03 Dose: 25 mg Documented by: VELMA Sodium Chloride (Normal Saline 0.9%) 1,000 mls @ 150 mls/hr IV CONT YARI Last Admin: 01/04/20 20:24 Dose: Not Given Documented by: CARLOS Sodium Chloride (Normal Saline 0.9%) 1,000 mls @ 1,000 mls/hr IV BOLUS ONE Stop: 01/04/20 21:01 Last Infusion: 01/05/20 00:29 Dose: 0 mls/hr Documented by: Admin: 01/04/20 20:23 Dose: 1,000 mls/hr Documented by: CARLOS Ketorolac Tromethamine (Toradol) 30 mg IV NOW ONE Stop: 01/04/20 20:03 Last Admin: 01/04/20 20:23 Dose: 30 mg Documented by: CARLOS Metoclopramide HCl (Reglan) 10 mg IV NOW ONE Stop: 01/04/20 23:55 Last Admin: 01/05/20 00:03 Dose: 10 mg Documented by: VELMA Ondansetron HCl (Zofran) 4 mg IV NOW ONE Stop: 01/04/20 19:58 Last Admin: 01/04/20 20:23 Dose: 4 mg Documented by: CARLOS Ondansetron HCl (Zofran) 4 mg IV NOW ONE Stop: 01/04/20 20:03 Last Admin: 01/04/20 20:24 Dose: Not Given Documented by: CARLOS Ondansetron HCl (Zofran Odt Prepack) 1 bottle MISC SEEINSTR ONE Stop: 01/05/20 01:25 Last Admin: 01/05/20 01:39 Dose: 1 bottle Documented by: LESLIE Pantoprazole Sodium (Protonix) 40 mg IV NOW ONE Stop: 01/05/20 01:09 Last Admin: 01/05/20 01:30 Dose: Not Given Documented by: LESLIE Tramadol HCl (Ultram 50mg Prepack) 1 bottle MISC SEEINSTR ONE Stop: 01/05/20 01:25 Last Admin: 01/05/20 01:39 Dose: 1 bottle Documented by: LESLIE Vital Signs Vital signs: Vital Signs - 8 hr 01/04/20 19:45 01/04/20 22:52 01/05/20 01:49 Temperature 99.3 F Pulse Rate 77 75 66 Respiratory Rate 27 H 24 18 Blood Pressure 206/105 H Blood Pressure [Left Arm] 199/109 H 212/109 H Pulse Oximetry 97 97 98 MDM - Abdominal Pain Lab Data Result diagrams: 01/04/20 19:55 01/04/20 19:55 Labs: Lab Results 01/04/20 01/04/20 01/04/20 Range/Units 19:55 19:55 20:45 WBC 8.0 (4.5-11.0) X10^3/uL RBC 4.55 (4.0-5.2) X10^6/uL Hgb 13.0 (12.0-16.0) g/dL Hct 37.1 (36-46) % MCV 81.6 (80-100) fL MCH 28.6 (26-34) PG MCHC 35.1 (30-36) % RDW 14.1 (11.6-14.8) % Plt Count 269 (150-400) X10^3/uL Neut % (Auto) 79.9 H (50-75) % Lymph % (Auto) 14.9 L (25-40) % [place] % (Auto) 4.6 (3-14) % Eos % (Auto) 0.3 L (2-4) % Baso % (Auto) 0.3 (0-2) % Neut # (Auto) 6400 (2730-6919) /uL Lymph # (Auto) 1200 (9176-8012) /uL [place] # (Auto) 400 (0-900) /uL Eos # (Auto) 0 (0-450) /uL Baso # (Auto) 0 (0-100) /uL Sodium 138 (137-145) mmol/L Potassium 3.5 (3.4-5.1) mmol/L Chloride 101 (98-107) mmol/L Carbon Dioxide 25 (22-32) mmol/L BUN 16 (7-17) mg/dL Creatinine 0.68 (0.52-1.04) mg/dL Estimated GFR > 60.0 (>60) mL/min BUN/Creatinine Ratio 23.5 H (6-22) Glucose 71 (70-100) mg/dL Calcium 10.3 H (8.4-10.2) mg/dL Total Bilirubin 0.6 (0.2-1.3) mg/dL AST 73 H (14-36) IU/L ALT 52 H (<35) IU/L Alkaline Phosphatase 91 (38-126) U/L Total Protein 8.2 (6.3-8.2) g/dL Albumin 5.0 (3.5-5.0) g/dL Globulin 3.2 (1.7-4.1) g/dL Albumin/Globulin Ratio 1.6 (1.0-2.8) Lipase 100 (23-300) U/L Urine Color Yellow Urine Appearance Clear Urine pH 7.0 (4.5-8.0) Ur Specific [place] 1.025 (1.000-1.035) Urine Protein 2+ H (Negative) Urine Glucose (UA) Negative (Negative) g/dL Urine Ketones Negative (NEGATIVE) Urine Occult Blood 1+ H (Negative) Urine Nitrate Negative (Negative) Urine Bilirubin Negative (NEGATIVE) Urine Urobilinogen 0.2 (0.2) E.U./dL Ur Leukocyte Esterase Negative (NEGATIVE) Urine RBC 1-5/hpf (0-5/HPF) Urine WBC 0-1/hpf (0-5/HPF) Ur Squamous Epith Cells 1-5 /hpf (0-5/HPF) Amorphous Sediment 1+ Urine Bacteria Occasional (0-1) D (None) Urine Mucus 1+ H (Negative) Ur Culture Indicated? Cult not indicated Point of care testing: Point of Care Testing Glucose POC 96 Discharge Plan Departure Patient Disposition: Home Clinical Impression: Chronic pancreatitis Qualifiers: Pancreatitis type: idiopathic Qualified Code(s): K86.1 - Other chronic pancreatitis Discharge Date/Time: 01/05/20 01:50 Instructions: Chronic Pancreatitis Activity Restrictions/Additional Instructions: I recommended a low-fat diet, drink plenty of water. Tylenol or Advil as needed for pain. Tramadol as necessary for added pain control. Zofran every 4 hours as needed for nausea. Contact your doctor tomorrow. I would advise consultation with a freelance programmer/app developer. Return the ER for increasing pain, increased vomiting, or fever. Prescriptions: New tramadol 50 mg tablet 50 mg PO Q6-8H PRN (Reason: pain) Qty: 20 RF: 0 ondansetron 4 mg tablet,disintegrating 4 mg PO Q4H PRN (Reason: nausea and vomiting) 1 Days Qty: 20 RF: 0 No Action metoprolol succinate [Toprol XL] 100 MG tablet extended release 24 hr 100 mg PO DAILY Qty: 0 RF: 0 fenofibrate 160 MG tablet 160 mg PO DAILY Qty: 0 RF: 0 Lantus U-100 Insulin 100 UNIT/1 ML solution 50 unit SQ DAILY Qty: 0 RF: 0 Lantus U-100 Insulin 100 UNIT/1 ML solution 30 unit SQ QPM Qty: 0 RF: 0 insulin aspart U-100 [Novolog U-100 Insulin aspart] 100 UNIT/1 ML solution 10 - 25 unit SQ TIDAC Qty: 0 RF: 0 metoclopramide HCl [Reglan] 5 MG tablet 10 mg PO QID PRN (Reason: Nausea) Qty: 0 RF: 0 quetiapine [Seroquel] 400 MG tablet 800 mg PO BEDTIME Qty: 0 RF: 0 quetiapine [Seroquel] 100 MG tablet 100 mg PO TID PRN (Reason: episodes) Qty: 0 RF: 0 lorazepam 2 MG tablet 4 mg PO TID Qty: 0 RF: 0 methylphenidate HCl 10 mg tablet 10 mg PO QID RF: 0 omega-3 acid ethyl esters 1 gram Capsule 2 cap PO BID RF: 0 tizanidine 2 mg Tablet 2 mg PO Q8H PRN (Reason: Spasms) RF: 0 oxycodone 15 mg tablet 15 mg PO Q8H PRN (Reason: pain) Qty: 20 RF: 0 amlodipine 10 mg tablet 10 mg PO DAILY Qty: 30 RF: 0 fluoxetine 20 mg capsule 20 mg PO DAILY RF: 0 Referrals: Neftaly Tomlinson MD [Primary Care Provider] -
[2020-01-04 20:01] LABS: Add Manual Diff / Slide Review NO; Basophils Absolute Auto 0 /uL (0-100); Basophils Percent Auto 0.3 % (0-2); Eosinophils Absolute Auto 0 /uL (0-450); Eosinophils Percent Auto 0.3 % (2-4); Hematocrit 37.1 % (36-46); Lymphocytes Absolute Auto 1200 /uL (1100-4500); Lymphocytes Percent Auto 14.9 % (25-40); Mean Corpuscular HGB Conc 35.1 % (30-36); Mean Corpuscular Hemoglobin 28.6 PG (26-34); Mean Corpuscular Volume 81.6 fL (80-100); Monocytes Absolute Auto 400 /uL (0-900); Monocytes Percent Auto 4.6 % (3-14); Neutrophils Absolute Auto 6400 /uL (1500-7000); Neutrophils Percent Auto 79.9 % (50-75); Platelet Count 269 X10^3/uL (150-400); Red Blood Cell Count 4.55 X10^6/uL (4.0-5.2); Red Cell Distribution Width 14.1 % (11.6-14.8)
[2020-01-04 20:22] LABS: Alanine Aminotransferase 52 IU/L (<35); Albumin Globulin Ratio 1.6 (1.0-2.8); Alkaline Phosphatase 91 U/L (38-126); Aspartate Aminotransferase 73 IU/L (14-36); BUN Creatinine Ratio 23.5 (6-22); Bilirubin Total 0.6 mg/dL (0.2-1.3); Blood Urea Nitrogen 16 mg/dL (7-17); Calcium 10.3 mg/dL (8.4-10.2); Carbon Dioxide 25 mmol/L (22-32); Chloride 101 mmol/L (98-107); Estimated Glomerular Filt Rate > 60.0 mL/min (>60); Globulin 3.2 g/dL (1.7-4.1); Glucose 71 mg/dL (70-100); HEMOLYSIS < 15 (0-50); Lipase 100 U/L (23-300); Potassium 3.5 mmol/L (3.4-5.1); Sodium 138 mmol/L (137-145); Total Protein 8.2 g/dL (6.3-8.2)
[2020-01-04] MEDS: ONDANSETRON 4 MG/2 ML INJ IV (20:23)
[2020-01-04] MEDS: KETOROLAC 60 MG/2 ML VIAL 30 MG IV (20:23)
[2020-01-04] MEDS: SODIUM CHLORIDE 0.9% 1,000 ML 1000 ML IV (20:23)
[2020-01-04 20:54] LABS: Appearance Urine UA CLEAR; Bilirubin Urine UA NEGATIVE (NEGATIVE); Color Urine UA YELLOW; Glucose Urine UA NEGATIVE (Negative); Ketones Urine UA NEGATIVE (NEGATIVE); Leukocyte Esterase Urine UA NEGATIVE (NEGATIVE); Nitrite Urine UA NEGATIVE (Negative); Occult Blood Urine UA 1+ (Negative); Protein Urine UA 2+ (Negative); Specific Gravity Urine UA 1.025 (1.000-1.035); Urobilinogen Urine UA 0.2 E.U./dL (0.2)
[2020-01-04 21:00] LABS: RBC Urine 1-5/HPF (0-5/HPF); Squamous Epithelial Cell Urine 1-5 /HPF (0-5/HPF); WBC Urine 0-1/HPF (0-5/HPF)
[2020-01-04 21:01] LABS: Amorphous Sediment Urine 1+; Bacteria Urine Occasional (0-1); Culture Indicated Urine Cult Not Indicated; Mucus Urine 1+ (Negative)
[2020-01-04 22:52] VITALS: BP 212/109; PULSE 75; RESP 24; O2SAT 97
[2020-01-05] MEDS: METOCLOPRAMIDE 10 MG/2 ML INJ IV (00:03)
[2020-01-05] MEDS: diphenhydrAMINE 50 MG/ML VIAL 25 MG IV (00:03)
[2020-01-05] MEDS: ONDANSETRON 4 MG ODT PREPACK 1 BOTTLE MISC (01:39)
[2020-01-05] MEDS: TRAMADOL 50 MG PREPACK 1 BOTTLE MISC (01:39)
[2020-01-05 01:49] VITALS: BP 206/105; PULSE 66; RESP 18; TEMP 37.4; O2SAT 98
== END 2020-01-05 01:50 | disposition home or self-care (01) ==
PROVIDERS: Emergency Provider Emergency Medicine; PCP Internal Medicine
DX: K86.1 Other chronic pancreatitis (principal); R11.2 Nausea with vomiting, unspecified; K85.90 Acute pancreatitis without necrosis or infection, unspecified; E11.9 Type 2 diabetes mellitus without complications; I10 Essential (primary) hypertension
CPT/HCPCS: 36415; 80053; 81001; 82962; 83036; 83690; 85025; 93005; J1200; J1885; J2405; J2765

== ENCOUNTER 2020-01-05 14:57 | Inpatient (IN) | payer OTHER, SELFPAY ==
[2019-09-09 20:20] VITALS: BMI 30.8
[2020-01-05] VITALS (8 sets, daily range): BP systolic 186–222; BP diastolic 101–119; PULSE 74–94; RESP 16–20; TEMP 36.3–36.7; O2SAT 96–98; BMI 30.2; BMI 29.2
--- NOTE | 2020-01-05 15:08 | ED.GENADULT ---
HPI - General Adult General Chief complaint: Nausea/Vomiting/Diarrhea Stated complaint: nausea, vomiting, cant drink Time Seen by Provider: 01/05/20 14:58 Source: patient and family Mode of arrival: Ambulatory Limitations: no limitations History of Present Illness HPI narrative: 54-year-old female history of acute and chronic pancreatitis and other medical issues to include insulin-dependent diabetes and bipolar disorder here for evaluation of nausea and vomiting. Patient was seen here in the emergency department last evening for very similar symptoms. According to the ED provider note she was given multiple medications which improved her symptoms but she was not back at baseline. Patient states that she did not think that her symptoms had improved all that much by the time she was discharged. She had a follow-up with her primary doctor today. I did receive a call from her doctor stating that the patient continued to have nausea and vomiting. Was unable to tolerate any oral fluids in the office. Was given fluids and Phenergan IV without any improvement. Was sent to the emergency department for continued workup. Patient states that the nausea and slight upper abdominal pain started several days ago but the vomiting did not start until last evening. She does admit to being constipated otherwise no change in bowel habits. No urinary symptoms. Has had multiple abdominal surgeries to include removal of her gallbladder appendix and uterus. Patient here for continued workup. Related Data Home Medications Medication Instructions Recorded Confirmed Lantus U-100 Insulin 30 unit SQ QPM #0 09/19/17 09/09/19 Lantus U-100 Insulin 50 unit SQ DAILY #0 09/19/17 09/09/19 fenofibrate 160 mg PO DAILY #0 09/19/17 09/09/19 insulin aspart U-100 [Novolog 10 - 25 unit SQ TIDAC #0 09/19/17 09/09/19 U-100 Insulin aspart] lorazepam 4 mg PO TID #0 09/19/17 09/09/19 metoclopramide HCl [Reglan] 10 mg PO QID PRN #0 09/19/17 09/09/19 metoprolol succinate [Toprol XL] 100 mg PO DAILY #0 09/19/17 09/09/19 quetiapine [Seroquel] 100 mg PO TID PRN #0 09/19/17 09/09/19 quetiapine [Seroquel] 800 mg PO BEDTIME #0 09/19/17 09/09/19 fluoxetine 20 mg capsule 20 mg PO DAILY 10/10/18 09/09/19 methylphenidate HCl 10 mg PO QID 04/17/19 09/09/19 omega-3 acid ethyl esters 2 cap PO BID 04/17/19 09/09/19 tizanidine 2 mg PO Q8H PRN 04/17/19 09/09/19 Previous Rx's Medication Instructions Recorded amlodipine 10 mg PO DAILY #30 tab 09/13/19 oxycodone 15 mg PO Q8H PRN #20 tab 09/13/19 ondansetron 4 mg PO Q4H PRN 1 Days #20 tab 01/05/20 tramadol 50 mg PO Q6-8H PRN #20 tab 01/05/20 Allergies Allergy/AdvReac Type Severity Reaction Status Date / Time No Known Drug Allergies Allergy Verified 06/10/19 18:15 Review of Systems Constitutional Constitutional: Denies fatigue and Denies fever(s) Cardiovascular Cardiovascular: Denies chest pain and Denies dyspnea Respiratory Respiratory: Denies dyspnea Gastrointestinal Gastrointestinal: Reports constipation, Reports nausea and Reports vomiting Genitourinary Genitourinary: Denies dysuria and Denies urinary hesitancy Genitourinary: Denies dysuria and Denies urinary hesitancy Musculoskeletal Musculoskeletal: Denies arthralgias and Denies myalgias Integumentary/Breasts Skin/Breast: Denies rash Neurologic Neurologic: Denies behavioral changes Psychiatric Psychiatric: Denies behavioral changes Endocrine Endocrine: Denies fatigue Hematologic/Lymphatic Hematologic/Lymphatic: Denies easy bleeding and Denies easy bruising Patient History Medical History Anxiety (Chronic) Arthritis (Acute) Bipolar 1 disorder (Chronic) Chronic pancreatitis (Acute) History of pancreatitis (Resolved) History of pulmonary embolism (Acute) Hypercholesterolemia with hypertriglyceridemia (Chronic) Hypersomnia (Chronic) Hypertension (Chronic) Major depressive disorder (Chronic) Neuropathy, diabetic (Acute) Nonalcoholic steatohepatitis (HERRING) (Chronic) Obesity (Chronic) Obstructive sleep apnea of adult (Chronic) Renal insufficiency (Acute) Snoring (Inactive) Type 2 diabetes mellitus (Chronic) Surgical History Gastrocnemius equinus of right lower extremity (Acute) Family History Father COPD (chronic obstructive pulmonary disease) Mother Hypertension Sister Fibromyalgia Social History marital status: details: rasheed Gaitan household members: spouse and children lives independently: Yes caregiver/support person: No occupational status: unemployed Smoking Status: Never smoker alcohol intake: current substance use type: marijuana Smoking Status: Never smoker alcohol intake frequency: 0-2 drinks per day Substance Use Type: marijuana Exam Initial Vital Signs Initial Vital Signs: Vital Signs Temperature 97.4 F L 01/05/20 15:07 Pulse Rate 75 01/05/20 15:07 Respiratory Rate 16 01/05/20 15:07 Blood Pressure 222/102 H 01/05/20 15:07 Pulse Oximetry 97 01/05/20 15:07 Const General: cooperative Limitations: mental status not altered HENMT Head: normal to inspection and normocephalic Resp Effort & Inspection: normal respiratory effort Auscultation: clear to auscultation bilaterally Cardio Rate: regular rate Rhythm: regular rhythm GI Inspection: non-distended Palpation: soft, No firm and No tender Skin Lesions: no lesions Rashes: no rashes Neuro General: patient alert and patient awake Cognition: normal cognition Speech: speech normal Extrem General: normal to inspection and capillary refill normal Psych Appearance: grossly normal and well kempt Course Orders Ordered: ED Orders 01/05/20 14:59 EKG-12 Lead Stat 01/05/20 15:10 Complete Blood Count AUTO DIFF Stat Comprehensive Metabolic Panel Stat Lactate (Lactic Acid) Stat Lipase Stat 01/05/20 15:20 CT abdomen pelvis w con Stat Discontinued Medications Sodium Chloride (Normal Saline 0.9%) 1,000 mls @ 1,000 mls/hr IV BOLUS ONE Stop: 01/05/20 15:57 Last Infusion: 01/05/20 16:50 Dose: 0 mls/hr Documented by: Admin: 01/05/20 15:34 Dose: 1,000 mls/hr Documented by: SAMPSON Lorazepam (Ativan) 1 mg IV NOW ONE Stop: 01/05/20 17:18 Last Admin: 01/05/20 17:24 Dose: 1 mg Documented by: SAMPSON Ondansetron HCl (Zofran) 4 mg IV NOW ONE Stop: 01/05/20 15:20 Last Admin: 01/05/20 15:34 Dose: 4 mg Documented by: SAMPSON Vital Signs Vital signs: Vital Signs - 8 hr 01/05/20 15:07 01/05/20 15:40 01/05/20 16:54 Temperature 97.4 F L Pulse Rate 75 80 75 Respiratory Rate 16 20 18 Blood Pressure 222/102 H Blood Pressure [Right Arm] 188/104 H 203/119 H Pulse Oximetry 97 98 98 Medical Decision Making Lab Data Lab results reviewed: Yes I reviewed the patient's lab results. Result diagrams: 01/05/20 15:10 01/05/20 15:10 Labs: Lab Results 01/05/20 01/05/20 01/05/20 Range/Units 15:10 15:10 15:10 WBC 9.1 (4.5-11.0) X10^3/uL RBC 4.50 (4.0-5.2) X10^6/uL Hgb 12.7 (12.0-16.0) g/dL Hct 37.2 (36-46) % MCV 82.5 (80-100) fL MCH 28.2 (26-34) PG MCHC 34.2 (30-36) % RDW 14.1 (11.6-14.8) % Plt Count 316 (150-400) X10^3/uL Neut % (Auto) 86.9 H (50-75) % Lymph % (Auto) 8.7 L (25-40) % Turner % (Auto) 4.1 (3-14) % Eos % (Auto) 0.0 L (2-4) % Baso % (Auto) 0.3 (0-2) % Neut # (Auto) 7900 H (8938-8936) /uL Lymph # (Auto) 800 L (1857-6025) /uL Turner # (Auto) 400 (0-900) /uL Eos # (Auto) 0 (0-450) /uL Baso # (Auto) 0 (0-100) /uL Sodium 137 (137-145) mmol/L Potassium 3.9 (3.4-5.1) mmol/L Chloride 101 (98-107) mmol/L Carbon Dioxide 25 (22-32) mmol/L BUN 19 H (7-17) mg/dL Creatinine 0.82 (0.52-1.04) mg/dL Estimated GFR > 60.0 (>60) mL/min BUN/Creatinine Ratio 23.2 H (6-22) Glucose 183 H D (70-100) mg/dL Lactate 1.2 (0.7-2.1) mmol/L Calcium 10.0 (8.4-10.2) mg/dL Total Bilirubin 0.8 (0.2-1.3) mg/dL AST 63 H (14-36) IU/L ALT 48 H (<35) IU/L Alkaline Phosphatase 87 (38-126) U/L Total Protein 8.1 (6.3-8.2) g/dL Albumin 5.0 (3.5-5.0) g/dL Globulin 3.1 (1.7-4.1) g/dL Albumin/Globulin Ratio 1.6 (1.0-2.8) Lipase 90 (23-300) U/L Imaging Data CT scan - abdomen/pelvis: Radiologist's Impression: [place] [address] CT Scan Report Signed Patient: Sheela Brown [facility]#: [id number] : 1965Acct:[id number] Age/Sex: 54 / FDate of Service: 01/05/20 Loc: ED Accession Number: [id number] Procedure: CT abdomen pelvis w con Ordering Provider: Ben Faith D.O. PROCEDURE: CT ABDOMEN PELVIS W CON INDICATIONS: Vomiting, history of pancreatitis TECHNIQUE: After the administration of intravenous contrast, 5 mm thick sections acquired from the diaphragm to the symphysis. 5 mm coronal and sagittal reformats were acquired. For radiation dose reduction, the following was used: automated exposure control, adjustment of mA and/or kV according to patient size. COMPARISON: [facility], MR, MR ABDOMEN WO CON, 09/10/2019, 10:37. [facility], CT, CT ABDOMEN PELVIS W CON, 09/09/2019, 19:14. FINDINGS: Image quality: Excellent. ABDOMEN: Lung bases: Mild right basilar atelectasis. Heart size is normal. Small hiatal hernia. Solid organs: Liver is normal in size and enhancement. Liver demonstrates subtly nodular contour. Gallbladder is surgically absent. Biliary system is mildly dilated. Calcific densities are noted in the pancreatic head and body, consistent with chronic pancreatitis. There is an ill-defined hypoenhancement in the pancreatic head, new since the last exam. Peripancreatic stranding seen on the last CT dated 09/09/2019 has decreased with minimal stranding around pancreatic head. Spleen is mildly enlarged. No adrenal nodules. Kidneys demonstrate normal size and enhancement, without hydronephrosis. Peritoneum and bowel: Bowel loops demonstrate normal wall thickness and caliber. No free fluid or air. Nodes and vessels: No retroperitoneal or mesenteric adenopathy by size criteria. Aorta and inferior vena cava are normal in size. Miscellaneous: No ventral hernias. PELVIS: Genitourinary: Bladder is contracted. Uterus is absent. No adnexal masses. No free fluid in pelvis. Miscellaneous: No inguinal hernias or adenopathy. Bones: No suspicious bony lesions. No vertebral body compression fractures. Degenerative changes in thoracic and lumbar spine. IMPRESSION: 1. Chronic pancreatitis. There is minimal stranding around the pancreatic head. Mild acute pancreatitis cannot be excluded. Compared with the last CT on 09/09/2019, peripancreatic stranding has significantly decreased. A small area of ill-defined hypoenhancement is noted in the pancreatic head, which is new and may be secondary to irregular dilation of pancreatic duct or a small area of pancreatic necrosis. No pancreatic pseudocysts. 2. Cholecystectomy. There is intrahepatic biliary dilation. Please correlate with serum bilirubin for biliary obstruction. 3. Subtle nodular contour of liver suggesting cirrhosis. Please correlate with liver enzymes. 4. Mild splenomegaly. Dictated by: Maryann Lezama M.D. on 01/05/2020 at 16:49 Approved by: Maryann Lezama M.D. on 01/05/2020 at 17:04 ECG Data Attestation: I personally reviewed and interpreted this ECG as follows: Prior ECG tracings: not available for review Interpretation: Sinus rhythm Ventricular rate 73 Normal QRS Normal axis No ST T wave changes MDM Narrative Medical decision making narrative: Insulin-dependent diabetic and is hyperglycemic however no signs of DKA patient was given Zofran and Ativan she reports only minimal if any improvement of these. Is also given fluids. Her CT scan shows no signs of an acute pathology. Her bilirubins unremarkable. Low suspicion for gallbladder pathology. She does have CT scan findings consistent with her chronic pancreatitis. Her labs and exam are not consistent with acute pancreatitis. Over the past 24 hours she has been given multiple doses of Zofran has also been given Phenergan also been given Reglan and also Ativan with only minimal if any improvement. Discussed the case with Dr. bui with medicine. Will admit for further evaluation treatment. Discharge Plan Departure Patient Disposition: Admitted As Inpatient Clinical Impression: Intractable vomiting with nausea Chronic pancreatitis Qualifiers: Pancreatitis type: other Qualified Code(s): K86.1 - Other chronic pancreatitis Discharge Date/Time: 01/05/20 18:06 Admit Date/Time: 01/05/20 18:06 Admit Provider: Janet Bui
--- NOTE | 2020-01-05 15:20 | DI.CT.S_ITS ---
PROCEDURE: CT ABDOMEN PELVIS W CON INDICATIONS: Vomiting, history of pancreatitis TECHNIQUE: After the administration of intravenous contrast, 5 mm thick sections acquired from the diaphragm to the symphysis. 5 mm coronal and sagittal reformats were acquired. For radiation dose reduction, the following was used: automated exposure control, adjustment of mA and/or kV according to patient size. COMPARISON: [facility], MR, MR ABDOMEN WO CON, 09/10/2019, 10:37. [facility], CT, CT ABDOMEN PELVIS W CON, 09/09/2019, 19:14. FINDINGS: Image quality: Excellent. ABDOMEN: Lung bases: Mild right basilar atelectasis. Heart size is normal. Small hiatal hernia. Solid organs: Liver is normal in size and enhancement. Liver demonstrates subtly nodular contour. Gallbladder is surgically absent. Biliary system is mildly dilated. Calcific densities are noted in the pancreatic head and body, consistent with chronic pancreatitis. There is an ill-defined hypoenhancement in the pancreatic head, new since the last exam. Peripancreatic stranding seen on the last CT dated 09/09/2019 has decreased with minimal stranding around pancreatic head. Spleen is mildly enlarged. No adrenal nodules. Kidneys demonstrate normal size and enhancement, without hydronephrosis. Peritoneum and bowel: Bowel loops demonstrate normal wall thickness and caliber. No free fluid or air. Nodes and vessels: No retroperitoneal or mesenteric adenopathy by size criteria. Aorta and inferior vena cava are normal in size. Miscellaneous: No ventral hernias. PELVIS: Genitourinary: Bladder is contracted. Uterus is absent. No adnexal masses. No free fluid in pelvis. Miscellaneous: No inguinal hernias or adenopathy. Bones: No suspicious bony lesions. No vertebral body compression fractures. Degenerative changes in thoracic and lumbar spine. IMPRESSION: 1. Chronic pancreatitis. There is minimal stranding around the pancreatic head. Mild acute pancreatitis cannot be excluded. Compared with the last CT on 09/09/2019, peripancreatic stranding has significantly decreased. A small area of ill-defined hypoenhancement is noted in the pancreatic head, which is new and may be secondary to irregular dilation of pancreatic duct or a small area of pancreatic necrosis. No pancreatic pseudocysts. 2. Cholecystectomy. There is intrahepatic biliary dilation. Please correlate with serum bilirubin for biliary obstruction. 3. Subtle nodular contour of liver suggesting cirrhosis. Please correlate with liver enzymes. 4. Mild splenomegaly. Dictated by: Maryann Lezama M.D. on 01/05/2020 at 16:49 Approved by: Maryann Lezama M.D. on 01/05/2020 at 17:04
[2020-01-05 15:25] LABS: Add Manual Diff / Slide Review NO; Basophils Absolute Auto 0 /uL (0-100); Basophils Percent Auto 0.3 % (0-2); Eosinophils Absolute Auto 0 /uL (0-450); Hematocrit 37.2 % (36-46); Hemoglobin 12.7 g/dL (12.0-16.0); Lymphocytes Absolute Auto 800 /uL (1100-4500); Lymphocytes Percent Auto 8.7 % (25-40); Mean Corpuscular HGB Conc 34.2 % (30-36); Mean Corpuscular Hemoglobin 28.2 PG (26-34); Mean Corpuscular Volume 82.5 fL (80-100); Monocytes Absolute Auto 400 /uL (0-900); Monocytes Percent Auto 4.1 % (3-14); Neutrophils Absolute Auto 7900 /uL (1500-7000); Neutrophils Percent Auto 86.9 % (50-75); Platelet Count 316 X10^3/uL (150-400); Red Cell Distribution Width 14.1 % (11.6-14.8); White Blood Cell Count 9.1 X10^3/uL (4.5-11.0)
[2020-01-05] MEDS: ONDANSETRON 4 MG/2 ML INJ IV ×2 (15:34→20:30)
[2020-01-05] MEDS: SODIUM CHLORIDE 0.9% 1,000 ML 1000 ML IV (15:34)
[2020-01-05 15:45] LABS: Alanine Aminotransferase 48 IU/L (<35); Albumin Globulin Ratio 1.6 (1.0-2.8); Alkaline Phosphatase 87 U/L (38-126); Aspartate Aminotransferase 63 IU/L (14-36); BUN Creatinine Ratio 23.2 (6-22); Bilirubin Total 0.8 mg/dL (0.2-1.3); Blood Urea Nitrogen 19 mg/dL (7-17); Carbon Dioxide 25 mmol/L (22-32); Chloride 101 mmol/L (98-107); Estimated Glomerular Filt Rate > 60.0 mL/min (>60); Globulin 3.1 g/dL (1.7-4.1); Glucose 183 mg/dL (70-100); HEMOLYSIS < 15 (0-50); Lactate (Lactic Acid) 1.2 mmol/L (0.7-2.1); Lipase 90 U/L (23-300); Potassium 3.9 mmol/L (3.4-5.1); Sodium 137 mmol/L (137-145); Total Protein 8.1 g/dL (6.3-8.2)
[2020-01-05] MEDS: LORazepam 2 MG/ML INJ 1 MG IV (17:24)
--- NOTE | 2020-01-05 19:14 | PC.ADMIT ---
[address] Admission Note: The patient,Sheela Brown,54 y/o, was given written information regarding hospital policies, unit procedures and contact persons. Patient's smoking status: Never smoker. Vital Signs - 8 hr 01/05/20 15:07 01/05/20 15:40 01/05/20 16:54 Temperature 97.4 F L Pulse Rate 75 80 75 Respiratory Rate 16 20 18 Blood Pressure 222/102 H Blood Pressure [Right Arm] 188/104 H 203/119 H Pulse Oximetry 97 98 98 01/05/20 18:00 01/05/20 18:44 Temperature Pulse Rate 74 78 Respiratory Rate 18 18 Blood Pressure 186/107 H Blood Pressure [Right Arm] 199/101 H Pulse Oximetry 97 96 patient up from ED via wheelchair. Patient able to ambulate to ac bed. Denies pain but states just uncomfortable. Patient A&O, calm and cooperative.
--- NOTE | 2020-01-05 20:04 | PM.HP.1 ---
History of Present Illness History of Present Illness Date Patient Seen: 01/05/20 Time Patient Seen: 20:04 Date of Onset of Symptoms: 01/04/20 Chief complaint: nausea, vomiting, cant drink Narrative: This is a 54 year old female patient with history significant for a history of chronic pancreatitis, hypertension, type 2 diabetes with neuropathy, steatosis, renal insufficiency, and hypersomnia with obstructive sleep apnea, bipolar 1 disorder with major depressive disorder and anxiety. She also has significant benzodiazepine dependency. She presents today with severe nausea/vomiting, this time without the abdominal pain she had with her pancreatitis episode here in August. The liver enzymes are much lower with an AST of 63 and ALT of 48 compared to then. The white blood count is only 9.1 and the lactate is only 1.2. Her symptoms of severe nausea began yesterday and were initially treated at Dr. Tomlinson's office today with IV fluids before the decision was made to send her to the emergency department and then admit her because her nausea was relentless. She has been treated today already with Zofran, Ativan, Reglan and Compazine. Her lipase is normal this time, but was in the thousands when last admitted. The CT scan does not show acute pancreatitis, and in fact is improved compared to the CT from August. There is cirrhosis and dilated bile ducts in the liver. She is on extremely high doses of anxiety medicines for her bipolar and tells me that if she does not get her quetiapine she will become anxious, that if she does not get her extremely high doses of lorazepam she will become anxious and if she does not get her buprenorphine she will become anxious. Buprenorphine is not on the listed admission medications but methylphenidate is. That discrepancy will need to be clarified. She appears to be over sedated, as would be expected from receiving all those anti nausea medicines and taking those doses of psychotropics. Each medication will need to be carefully given, held if she is sedated/sleeping and the medicines that are not clear in her history will need to be resumed only if needed. At this point we will not be giving her the buprenorphine or the methylphenidate and the lorazepam dose will be cut in half to 2 mg TID. Patient History Medical History (Updated 01/05/20 @ 22:17 by Kip Correa MD) Anxiety (Chronic) Arthritis (Acute) Bipolar 1 disorder (Chronic) Chronic pain syndrome (Chronic) Chronic pancreatitis (Acute) Chronic pancreatitis (Acute) History of pancreatitis (Resolved) History of pulmonary embolism (Acute) Hypercholesterolemia with hypertriglyceridemia (Chronic) Hypersomnia (Chronic) Hypertension (Chronic) Major depressive disorder (Chronic) Neuropathy, diabetic (Acute) Nonalcoholic steatohepatitis (HERRING) (Chronic) Obesity (Chronic) Obstructive sleep apnea of adult (Chronic) Renal insufficiency (Acute) Snoring (Inactive) Type 2 diabetes mellitus (Chronic) Surgical History (Updated 01/05/20 @ 22:17 by Kip Correa MD) Fracture of right foot (Chronic) Gastrocnemius equinus of right lower extremity (Acute) H/O hysterectomy for benign disease (Acute) History of appendectomy (Acute) History of cholecystectomy (Acute) Lumbar post-laminectomy syndrome (Chronic) Right humeral fracture (Acute) Family & Social History Family History Father COPD (chronic obstructive pulmonary disease) Mother Hypertension Sister Fibromyalgia Social History: household members spouse,children Prior Living Arrangements House lives independently Yes caregiver/support person No Safety & Behavioral: Feels Safe in Current Yes Environment Been Physically Hurt or No Threatened By a Person Suicidal Ideation Description None Suicide Plan Description No Plan Tobacco & Substance use: Smoking Status Never smoker alcohol intake former alcohol intake frequency 0-2 drinks per day Substance Use Type marijuana Comment: 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 She lives with her and her son Her backup decision maker is her Juan Brown. Dr. Tomlinson is her primary care physician. Dr. Sheridan in [place] is her psychiatrist Meds Home Medications and Allergies Home Medications Medication Instructions Recorded Confirmed Type Lantus U-100 Insulin 30 unit SQ QPM #0 09/19/17 09/09/19 History Lantus U-100 Insulin 50 unit SQ DAILY #0 09/19/17 09/09/19 History fenofibrate 160 mg PO DAILY #0 09/19/17 09/09/19 History insulin aspart U-100 [Novolog 10 - 25 unit SQ TIDAC #0 09/19/17 09/09/19 History U-100 Insulin aspart] lorazepam 4 mg PO TID #0 09/19/17 09/09/19 History metoclopramide HCl [Reglan] 10 mg PO QID PRN #0 09/19/17 09/09/19 History metoprolol succinate [Toprol XL] 100 mg PO DAILY #0 09/19/17 09/09/19 History quetiapine [Seroquel] 100 mg PO TID PRN #0 09/19/17 09/09/19 History quetiapine [Seroquel] 800 mg PO BEDTIME #0 09/19/17 09/09/19 History fluoxetine 20 mg capsule 20 mg PO DAILY 10/10/18 09/09/19 History methylphenidate HCl 10 mg PO QID 04/17/19 09/09/19 History omega-3 acid ethyl esters 2 cap PO BID 04/17/19 09/09/19 History tizanidine 2 mg PO Q8H PRN 04/17/19 09/09/19 History amlodipine 10 mg PO DAILY #30 tab 09/13/19 Rx oxycodone 15 mg PO Q8H PRN #20 tab 09/13/19 Rx ondansetron 4 mg PO Q4H PRN 1 Days #20 tab 01/05/20 Rx tramadol 50 mg PO Q6-8H PRN #20 tab 01/05/20 Rx Allergies Allergy/AdvReac Type Severity Reaction Status Date / Time No Known Drug Allergies Allergy Verified 06/10/19 18:15 Review of Systems Review of Systems Narrative: Positive for anxiety, severe nausea, vomiting, mild abdominal pain Negative for fevers, chills, sweats, diarrhea, bleeding, rashes, chest pain, coughing, shortness of breath, dysuria, joint pain, rashes, seizures, headaches, difficulty talking. ROS: Yes All systems reviewed with the patient and are negative except as otherwise documented Exam Vital Signs (past 8 hours): - 01/05/20 15:07 01/05/20 15:40 01/05/20 16:54 Temperature 97.4 F L Pulse Rate 75 80 75 Respiratory Rate 16 20 18 Blood Pressure 222/102 H Blood Pressure [Right Arm] 188/104 H 203/119 H Pulse Oximetry 97 98 98 01/05/20 18:00 01/05/20 18:44 01/05/20 19:00 Temperature 98.0 F Pulse Rate 74 78 81 Respiratory Rate 18 18 18 Blood Pressure 186/107 H 202/118 H Blood Pressure [Right Arm] 199/101 H Pulse Oximetry 97 96 96 01/05/20 19:46 Temperature Pulse Rate 83 Respiratory Rate Blood Pressure 199/116 H Blood Pressure [Right Arm] Pulse Oximetry Oxygen Delivery Method Room Air Oxygen Flow Rate 0 Narrative Exam Narrative: Alert and oriented x3, appears to be in moderate distress from persisting anxiety and nausea. No apparent pain. She talks slowly and has slow recall/processing of questions. Pupils are equally round and reactive to light and accommodation. Sclerae are pink and nonicteric Extraocular muscles are intact Throat looks normal No lymph nodes are felt head, neck, supraclavicular area JVD is less than 6 cm No carotid bruits are heard Heart is regular rate and rhythm without murmur Lungs are clear to auscultation bilaterally Abdomen is very obese, bowel sounds active, no organomegaly, mild epigastric tenderness. Extremities have no ankle edema Skin has no rash or jaundice Neurological exam Cranial nerves 2-12 test intact There is no tremor The patient is very distracted/over-sedated and at the same time appears uncomfortable with nausea. Gait and balance are not tested Motor function appears to be 5/[address] scan - abdomen: Radiologist's impression: IMPRESSION: 1. Chronic pancreatitis. There is minimal stranding around the pancreatic head. Mild acute pancreatitis cannot be excluded. Compared with the last CT on 09/09/2019, peripancreatic stranding has significantly decreased. A small area of ill-defined hypoenhancement is noted in the pancreatic head, which is new and may be secondary to irregular dilation of pancreatic duct or a small area of pancreatic necrosis. No pancreatic pseudocysts. 2. Cholecystectomy. There is intrahepatic biliary dilation. Please correlate with serum bilirubin for biliary obstruction. 3. Subtle nodular contour of liver suggesting cirrhosis. Please correlate with liver enzymes. 4. Mild splenomegaly. Labs Result Diagrams: 01/05/20 15:10 01/05/20 15:10 Labs: Laboratory Results - last 24 hr 01/05/20 01/05/20 01/05/20 15:10 15:10 15:10 WBC 9.1 RBC 4.50 Hgb 12.7 Hct 37.2 MCV 82.5 MCH 28.2 MCHC 34.2 RDW 14.1 Plt Count 316 Neut % (Auto) 86.9 H Lymph % (Auto) 8.7 L [place] % (Auto) 4.1 Eos % (Auto) 0.0 L Baso % (Auto) 0.3 Neut # (Auto) 7900 H Lymph # (Auto) 800 L [place] # (Auto) 400 Eos # (Auto) 0 Baso # (Auto) 0 Sodium 137 Potassium 3.9 Chloride 101 Carbon Dioxide 25 BUN 19 H Creatinine 0.82 Estimated GFR > 60.0 BUN/Creatinine Ratio 23.2 H Glucose 183 H D Lactate 1.2 Calcium 10.0 Total Bilirubin 0.8 AST 63 H ALT 48 H Alkaline Phosphatase 87 Total Protein 8.1 Albumin 5.0 Globulin 3.1 Albumin/Globulin Ratio 1.6 Lipase 90 Assessment & Plan Assessment & Plan narrative: This is a 54-year-old female with history of prior episodes of pancreatitis and a prior history of sphincter of Oddi dysfunction. She now presents with 1.5 days of severe nausea/vomiting but a normal lipase level. 1. Severe dehydration, present on admission, acute -continue IV fluids along with antiemetics of ondansetron and prochlorperazine IV. -overall her presentation appears to be earlier in the process of her chronic pancreatitis compared to her last admission here. -she has already been hydrated 1st in her primary care physician office and then in the emergency department -she will be on clear liquids in the morning. 2. Chronic pancreatitis, present on admission, chronic. -Prior episodes of pancreatitis and reports history of sphincter of Oddi dysfunction. Describes pain as much less than in 2/20 episode. -Lipase is 90 -Continue IVF, bowel rest and advance diet as able. 3. Diabetes type 2, insulin-dependent, with neuropathy, present on admission, active -Patient is insulin dependent type 2 diabetic with neuropathy of feet and fingertips, using Lantus 50 units in the morning and 30 units at night and parental insulin with meals. -Blood sugar on admission is 183 -Obtain fingerstick glucose levels every 6 hours and treat with correctional insulin. -Will follow blood sugar trends and escalate therapy as needed in the setting of chronic pancreatitis. 4. Mixed hyperlipidemia, chronic, active -hold home regimen of atorvastatin 80 mg daily. -hold home regimen of fenofibrate 160 mg daily. 5. Essential hypertension, present on admission, active -Patient with elevated blood pressure upon arrival at 202/118 and remained elevated upon arrival to the floor at 199/166 -Continue home regimen of metoprolol succinate 100 mg daily, Amlodipine 10 mg daily. -Will follow blood pressures to assess adequacy of treatment. -Give additional Hydralazine/Labetalol if needed, if BP does not drop soon after admission 6. Elevated transaminases, non alcoholic steatosis, chronic, present on admission, active. -Patient with mildly elevated transaminases on admission but much better than in August 7. Bipolar 1 disorder, chronic, present on admission, active -The patient is drowsy on evaluation, slowly responsive to questions and cooperative. -Patient is on multiple psychotropic medications for bipolar 1, depression and anxiety. -continue home regimen of fluoxetine 20 mg daily. -Patient is on both methylphenidate 10 mg 4 times daily as well as lorazepam 3 times daily. -Due to patient level drowsiness will decrease lorazepam and will hold methylphenidate to 10 mg 3 times daily. -Continue patient's home regimen of quetiapine 400 mg at bedtime. -She also uses up to 300 mg of Quetiapine prn in the daytime -She states that she also takes Buprenophine 2 mg qd for anxiety, hold at this time. 8. Benzodiazepine Dependency -This appears to be quite severe at 4 mg TID -She is oversedated on admission -Begin by cutting dose in half to 2 mg TID and hold if asleep or sedated. VTE prophylaxis: SCDs and Lovenox Diet: NPO, advance to clear liquids in the morning. IV fluid: Normal saline 100 cc/hour.
[2020-01-05] MEDS: AMLODIPINE 5 MG TABLET 10 MG PO (20:30)
[2020-01-05] MEDS: METOPROLOL ER 50 MG TABLET 100 MG PO (20:30)
[2020-01-05] MEDS: SODIUM CHLORIDE 0.9% 1,000 ML 100 ML IV (20:33)
[2020-01-05] MEDS: QUETIAPINE 200 MG TABLET 400 MG PO (22:58)
[2020-01-05] MEDS: PROCHLORPERAZINE 10 MG/2 ML VIAL IV (22:59)
--- NOTE | 2020-01-05 23:46 | PC.NURSE ---
Evening note: Sheela brought from ER to rm 206, able to transfer self to bed. Admission complete by Susan preciado RN. Patient's BP 202/118 when admitted, after 30 minute rest period BP still 199/116. Pt mostly sleeping, awakes easily to voice, answers questions with her eye closed, appears very fatigued and somewhat delirious. She called me in room several times but when I asked what she needed, she said oh, wait, I can't remember. Just give me a minute, reporting vague nausea and minimal pain, and then would fall asleep again. I assisted her to call her spouse Juan per her request. I notified Dr Correa of continued hypertension, he ordered to give her BP meds that are scheduled for AM now. Metoprolol & Norvasc given. 2229: Later Dr Correa in to see patient, additional orders written for home medications. Seroquel 200 mg given, as pharmacy left before Dr Correa ordered 400 mg PM dose, and this med is not in [facility] or night pharmacy. (Pharmacy had supplied 200 mg dose per prn order.) Patient much more awake now. Complaining of increased nausea, stating the pain is bothering me more than the pain. Medicated with Compazine. Patient report given to Katalina STORM RN.
[2020-01-06] VITALS (10 sets, daily range): BP systolic 122–202; BP diastolic 88–116; PULSE 60–83; RESP 18–20; TEMP 36.3–36.7; O2SAT 94–97
[2020-01-06] MEDS: HYDROMORPHONE 1 MG INJ IV ×2 (00:30→12:46)
[2020-01-06] MEDS: LORazepam 1 MG TABLET 2 MG PO ×4 (00:30→20:48)
--- NOTE | 2020-01-06 01:16 | PC.NURSE ---
Addendum entered by Katalina Rojo R.N. 01/06/20 06:44: Complaining of nausea again so medicated with Zofran Addendum entered by Katalina Rojo R.N. 01/06/20 05:40: States nausea is resolved and is feeling much better this morning. Addendum entered by Katalina Rojo R.N. 01/06/20 04:43: Slept for past few hours. States when she woke the nausea was gone but now after having been up to the bathroom nausea has returned; medicated with Compazine. States upper abdomen is tender but declines need for pain medication. Addendum entered by Katalina Rojo R.N. 01/06/20 02:04: Continues to complain that nausea is unresolved and wanting more medication. Too early to give either the Zofran or Compazine and has recently had po Ativan. Dr Correa contacted and order received for Dexamethasone. Original Note: Patient seen and assessed at 0045. Is alert and oriented. Breath sounds CTA with RA sat of 95%. HRR. BP has been elevated but is improved now at 170/89. Still complaining of nausea but has had no emesis; medicated now with po scheduled Ativan along with sips of H2O since currently is NPO. Having aching pain in upper abdomen and is tender to palpation; states pain is 6/10 and so medicated with IV Dilaudid. BT present but denies flatus and has not had a BM since 01/02. Moving self in bed. SBA provided when up to bathroom although patient is steady on feet. States she has chronic frequency/urgency but denies dysuria. Refusing to wear SCD's at night as states she can't sleep with them on. Fall risk score is moderate and bed alarm is activated. CBG at 0000 was 132.
[2020-01-06] MEDS: DEXAMETHASONE 4 MG/ML VIAL 2 MG IV (01:59)
[2020-01-06] MEDS: PROCHLORPERAZINE 10 MG/2 ML VIAL IV ×2 (04:40→11:45)
[2020-01-06] MEDS: OXYCODONE IR 5 MG TABLET 15 MG PO ×2 (05:52→18:15)
[2020-01-06] MEDS: SODIUM CHLORIDE 0.9% 1,000 ML 100 ML IV ×2 (05:55→16:53)
[2020-01-06] MEDS: INSULIN ASPART 100 UNIT/ML INSULN PEN SUBCUT ×4 (06:36→20:48)
[2020-01-06] MEDS: ONDANSETRON 4 MG/2 ML INJ IV (06:39)
[2020-01-06 06:53] LABS: Add Manual Diff / Slide Review NO; Basophils Absolute Auto 0 /uL (0-100); Basophils Percent Auto 0.2 % (0-2); Eosinophils Absolute Auto 0 /uL (0-450); Eosinophils Percent Auto 0.2 % (2-4); Hematocrit 33.7 % (36-46); Hemoglobin 11.8 g/dL (12.0-16.0); Lymphocytes Absolute Auto 800 /uL (1100-4500); Lymphocytes Percent Auto 10.7 % (25-40); Mean Corpuscular Hemoglobin 28.8 PG (26-34); Mean Corpuscular Volume 82.3 fL (80-100); Monocytes Absolute Auto 300 /uL (0-900); Monocytes Percent Auto 4.7 % (3-14); Neutrophils Absolute Auto 6000 /uL (1500-7000); Neutrophils Percent Auto 84.2 % (50-75); Platelet Count 220 X10^3/uL (150-400); Red Blood Cell Count 4.09 X10^6/uL (4.0-5.2); Red Cell Distribution Width 13.8 % (11.6-14.8); White Blood Cell Count 7.1 X10^3/uL (4.5-11.0)
[2020-01-06 07:00] LABS: Alanine Aminotransferase 41 IU/L (<35); Albumin 4.4 g/dL (3.5-5.0); Albumin Globulin Ratio 1.8 (1.0-2.8); Alkaline Phosphatase 74 U/L (38-126); Aspartate Aminotransferase 53 IU/L (14-36); Bilirubin Total 0.6 mg/dL (0.2-1.3); Blood Urea Nitrogen 17 mg/dL (7-17); Calcium 9.2 mg/dL (8.4-10.2); Carbon Dioxide 23 mmol/L (22-32); Chloride 102 mmol/L (98-107); Estimated Glomerular Filt Rate > 60.0 mL/min (>60); Globulin 2.5 g/dL (1.7-4.1); Glucose 153 mg/dL (70-100); HEMOLYSIS < 15 (0-50); Potassium 3.7 mmol/L (3.4-5.1); Sodium 136 mmol/L (137-145); Total Protein 6.9 g/dL (6.3-8.2)
[2020-01-06] MEDS: METOPROLOL ER 50 MG TABLET 100 MG PO (08:19)
[2020-01-06] MEDS: AMLODIPINE 5 MG TABLET 10 MG PO (08:19)
[2020-01-06] MEDS: FLUoxetine 20 MG CAPSULE PO (08:20)
[2020-01-06] MEDS: ENOXAPARIN 40 MG/0.4 ML SYRINGE SUBCUT (08:20)
--- NOTE | 2020-01-06 09:15 | DI.MRI.S_ITS ---
PROCEDURE: MR ABDOMEN WO CON INDICATIONS: Acute on chronic pancreatitis, poss panc nec, hep dilitation TECHNIQUE: Coronal HASTE through the abdomen, axial 2-D FLASH in- and [id number], and breath-hold T2 FSE with fat saturation through the biliary system and pancreas. Oblique coronal and axial thin-slice HASTE, radial thick-slab HASTE centered on the extrahepatic bile ducts. Intravenous secretin: Not requested. COMPARISON: [facility], CT, CT ABDOMEN PELVIS W CON, 01/05/2020, 15:22. [facility], MR, MR ABDOMEN WO CON, 09/10/2019, 10:37. FINDINGS: Image quality: Excellent. Pancreas and biliary system: Mild prominence of the intrahepatic bile ducts similar to the prior MRI from August 2019. CBD measures 6 mm. Gallbladder is surgically absent. Mild retroperitoneal edema adjacent to the 2nd/3rd portion of the duodenum and the pancreatic head. This is more conspicuous than the CT performed yesterday and is also more prominent compared to the MRI from August 2019. Findings of chronic calcific pancreatitis on prior CT. The pancreas is somewhat atrophic. No loculated pancreatic fluid collection. No intra-pancreatic fluid collection. Pancreatic duct is mildly prominent in caliber and somewhat ectatic particularly in the head of the pancreas. This is likely due to the sequelae of chronic pancreatitis. Other solid organs: Liver is mildly prominent in size. No significant steatosis. Spleen is at the upper limits of normal in size. Small splenule. No adrenal nodules. Both kidneys are normal in size, without hydronephrosis. Nodes and vessels: No retroperitoneal or mesenteric adenopathy by size criteria. Aorta and inferior vena cava are normal in size. Bowel and peritoneum: Unenhanced bowel loops are normal in caliber. No free fluid. Lung bases: No basal pleural effusions. Heart size is normal. Bones and soft tissues: No ventral hernias. Bone marrow is of normal overall signal. IMPRESSION: 1. Mild retroperitoneal edema adjacent to the duodenum and pancreatic head which is increased compared to prior MRI. This is most compatible with acute on chronic pancreatitis. Duodenitis is felt to be less likely. 2. No loculated peripancreatic fluid collection. Evaluation for pancreatic necrosis is limited in the absence of IV contrast. -Consider multiphase CT pancreas or MRI pancreas with IV contrast. 3. Findings of chronic calcific pancreatitis. 4. Stable mild intrahepatic biliary ductal dilatation. CBD is normal. Dictated by: Carlitos Kilgore M.D. on 01/06/2020 at 11:44 Approved by: Carlitos Kilgore M.D. on 01/06/2020 at 11:58
--- NOTE | 2020-01-06 12:00 | PC.NURSE ---
Patient brought back from MRI, up to bathroom and now back in bed. Face flushed, rubbing her stomach, reports pain and nausea is back and severe at this time after having to move around for test. Elevated BP noted. Compazine given as ordered prn, and patient resting with eyes closed. Requested cold washcloth for face and ice pack for abdomen. Bed alarm on for safety, call light within reach. Continue to follow.
--- NOTE | 2020-01-06 16:10 | CM.DANOTE ---
DCP/Assessment: Reviewed chart. Patient is a 54yr old female admitted to [facility] with nausea and vomiting. PCP is Dr. Tomlinson. Primary payor is 1)[facility]. Met with patient explained CM/SW role. Patient not feeling well at time of visit. Patient reports that she is I with all ADL's and does not anticipate any d/c planning needs. Notified patient that CM team would continue to follow as needed. P: Home when stable. Provider reports patient with several admits to with similar complaints. Provider plans to discuss with patient. MIGDALIA Paredes Discharge Planning/Care Management CM Discharge Assessment Start: 01/06/20 16:06 Freq: Status: Active Protocol: Document 01/06/20 16:07 KJS (Rec: 01/06/20 16:10 KJS [id number]) Discharge Planning Assessment Assigned General [employer] Supervisor MIGDALIA Paredes Contact Information Arnie Brown (spouse) Advance Directives? No History Provided By Patient,Medical Record Prior Living Arrangements House Household Members spouse,children Type of transporation used prior to Drives own vehicle admit Independent with ADL's Yes Is patient alert and oriented? Yes Comment Met w/pt today, explained SW/ DCP role. Pt explains she lives at home w/family and her is extremely supportive. Discharge Plan Home Transportation Arrangement Family Additional Comment Patient reports that she does not anticipate any d/c planning needs. Whiteboard Updated in Patient Room with Yes name and ext. # of General [employer] Supervisor Review Status In Process Next Review Type Continued Stay Review
--- NOTE | 2020-01-06 19:31 | PM.PN.1 ---
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 Patient is resting in bed comfortably. She reports her abdominal pain has improved and she is tolerating a clear liquid diet. She is eager to go home. 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 Plan to advance diet as tolerated tomorrow morning. Patient has no other complaints and denies headache, chest pain, shortness of breath, nausea, vomiting, fever, chills, dysuria, or diarrhea. She is voiding without difficulty. She has not had a bowel movement 3 days but has had significant nausea and vomiting with very little p.o. intake. Patient is up ambulating without assistance. Exam Vital Signs (past 8 hours): - 01/06/20 12:34 01/06/20 13:24 01/06/20 15:40 Temperature 98.1 F Pulse Rate 62 60 Respiratory Rate 18 Blood Pressure 183/101 H 173/108 H 185/107 H Pulse Oximetry 95 97 01/06/20 19:33 Temperature 98.1 F Pulse Rate 66 Respiratory Rate 20 Blood Pressure 171/101 H Pulse Oximetry Oxygen Delivery Method Room Air Oxygen Flow Rate 0 Narrative Exam Narrative: General: Middle-aged female lying in bed and in no acute distress, well-developed, well-nourished, appropriately interactive. HEENT: Normocephalic, atraumatic. External ears without defect. Pupils equal, round, and reactive to light. Anicteric sclerae, moist conjunctivae, and no lid lag. Oropharynx free of erythema and cobble stoning with moist mucosa. Neck: Supple with full range of motion. No jugular venous distension. No lymphadenopathy or thyromegaly. Cardiovascular: Regular rhythm, tachycardic, without murmurs, rubs, or gallops appreciated. Pulmonary: Clear to auscultation bilaterally without crackles, wheezes, or rhonchi. Normal respiratory effort with no use of accessory muscles. Abdomen: Soft, bowel sounds hypoactive, no tenderness to palpation in epigastrium, nondistended. Extremities: No clubbing, cyanosis, or edema. Skin: Normal temperature, turgor, and texture; no rash, ulcers, or subcutaneous nodules appreciated. Neurological: Cranial nerves grossly intact. Psychiatric: Normal mood and flat affect. Alert and oriented to person, place, and time. Objective Labs Result Diagrams: 01/07/20 07:12 01/07/20 07:12 Labs: Laboratory Results - last 24 hr 01/06/20 01/06/20 06:34 06:34 WBC 7.1 RBC 4.09 Hgb 11.8 L Hct 33.7 L MCV 82.3 MCH 28.8 MCHC 35.0 RDW 13.8 Plt Count 220 Neut % (Auto) 84.2 H Lymph % (Auto) 10.7 L [place] % (Auto) 4.7 Eos % (Auto) 0.2 L Baso % (Auto) 0.2 Neut # (Auto) 6000 Lymph # (Auto) 800 L [place] # (Auto) 300 Eos # (Auto) 0 Baso # (Auto) 0 Sodium 136 L Potassium 3.7 Chloride 102 Carbon Dioxide 23 BUN 17 Creatinine 0.63 Estimated GFR > 60.0 BUN/Creatinine Ratio 27.0 H Glucose 153 H Calcium 9.2 Total Bilirubin 0.6 AST 53 H ALT 41 H Alkaline Phosphatase 74 Total Protein 6.9 Albumin 4.4 Globulin 2.5 Albumin/Globulin Ratio 1.8 Assessment & Plan Assessment & Plan narrative: Sheela Shaw is a 54-year-old female with a past medical history significant for hypertension, hyperlipidemia, diabetes mellitus type 2, insulin using, bipolar 1 disorder, major depressive disorder, anxiety, chronic pain syndrome on Suboxone, HERRING, hypersomnia with obstructive sleep apnea and chronic pancreatitis who is admitted for recurrent episode of pancreatitis. 1. Acute on chronic pancreatitis with possible pancreatitic head necrosis, secondary to sphincter of Oddi dysfunction, present on admission. Resolving. -Patient presented with nausea and vomiting with mild abdominal epigastric abdominal pain unable to tolerate PO intake which is similar to previous episodes of pancreatitis. Patient reports recent GI evaluation in early spring 2019 with endoscopic ultrasound which redemonstrated sphincter of Oddi dysfunction. Recommend continued follow up with GI to discuss and pursue treatment. -CT abdomen and pelvis with contrast demonstrated chronic pancreatitis with minimal stranding around the pancreatic head possibly indicative of acute pancreatitis, a small area of ill-defined hypoenhancement is noted in the pancreatic head, which is new and may be secondary to irregular dilation of pancreatic duct or a small area of pancreatic necrosis and no pancreatic pseudocysts. Noted cholecystectomy with intrahepatic biliary dilation, subtle nodular contour of liver suggestive of cirrhosis, and mild splenomegaly. -Ordered MRCP, pending. -Initial lipase 90. No need to trend as lipase is not accurate marker in chronic pancreatitis. -Held losartan and statin in setting of pancreatitis. -Continue IV fluids with normal saline at 100 mL/hr, pain control with oxycodone 15 mg as needed every 8 hours for severe pain and hydromorphone 1 mg IV as needed every 6 hours for severe break through pain, Zofran4 mg every 8 hours as needed for nausea and COmpazine 10 mg every 6 hours as needed for nausea and plan to slowly advance diet today as tolerated. 2. Severe dehydration, present on admission. Resolving. -Continue IV fluids along with anti-emetics as above for bowel rest. 3. Chronic pain on suboxone, present on admission. Active. -Continue oxycodone 15 mg every 8 hours as needed for severe pain and hydromorphone 1 mg IV every 6 hours as needed for severe break through pain. -Patient will need to be off opiates 6-12 hours before restarting buprenorphine which has been held. -Patient also reports she is on ketamine 100 mg PO 8 times a day per PMR specialist?? 4. Diabetes type 2, insulin-using, with neuropathy, present on admission. Stable. -Hemoglobin A1c 5.3% indicative of tight glycemic control and significantly improved since last admission. Patient has complication of neuropathy of feet and fingertips. -Continue [facility] blood glucose checks and high dose correctional scale insulin while slowly advancing diet and will confirm lantus dose and restart when able to take in PO intake consistently. 5. Hypertension, acute on chronic, present on admission. Improved. -Patient with significantly elevated SBP 200's on admission likely related to pain and continue pain management as above. -Continue amlodipine 10 mg daily and metoprolol succinate 100 mg daily. Held lisinopril to avoid kidney injury with N/V. -Ordered labetolol 10 mg every 4 hours as needed for SBP > 180 mmHg sustained for 15 minutes. 6. Hyperlipidemia, chronic, present on admission. Stable. -Held atorvastatin 80 mg daily and fenofibrate during acute episode. 7. 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 -Patient with mildly elevated transaminases on admission with: Total bilirubin 0.8, AST 80, ALT 53 and alkaline phosphatase 92. LFTs continue to be stable and slightly downward trending. -CT demonstrated cholecystectomy with intrahepatic biliary dilation, subtle nodular contour of liver suggestive of cirrhosis, and mild splenomegaly. -[facility]. 8. Bipolar 1 disorder, chronic, present on admission. Stable. -Patient is on multiple psychotropic medications for bipolar 1, depression and anxiety. -Continued home fluoxetine 20 mg daily and quetiapine 400 mg at bedtime and 100 mg three times daily as needed during the day. Patient is on both methylphenidate 10 mg 4 times daily as well as lorazepam 3 times daily but due ti drowsiness decreased lorazepam 2 mg three times daily as need for anxiety and held methylphenidate to 10 mg 3 times daily. 9. Benzodiazepine dependency, chronic, present on admission. Stable. -Dependence appears to be quite severe at 4 mg three times daily. Patient was noted to be oversedated on admission -Begin by cutting dose in half to 2 mg three times daily and hold if asleep or sedated. Code Status: Full Code VTE prophylaxis: SCDs and Lovenox Disposition: Patient will likely discharge home in next several days with improvement in acute on chronic pancreatitis and MRCP results.
[2020-01-06] MEDS: QUETIAPINE 200 MG TABLET 400 MG PO (20:48)
[2020-01-07] VITALS (16 sets, daily range): BP systolic 127–205; BP diastolic 70–134; PULSE 59–79; RESP 16–20; TEMP 36.1–37.4; O2SAT 93–98
--- NOTE | 2020-01-07 01:43 | PC.NURSE ---
Addendum entered by Katalina Rojo R.N. 01/07/20 07:01: Had 100cc bile colored liquid emesis. Medicated with IV Compazine. BP after vomiting elevated at 168/134 so will recheck after nausea/vomiting subsides. Addendum entered by Katalina Rojo R.N. 01/07/20 06:16: States headache has resolved but now complains of nausea again; medicated with Zofran ODT. Original Note: Patient seen and assessed at 0053. Is alert and oriented. Breath sounds diminished but CTA with RA sat of 94%. HRR. DBP elevated with reading of 122/105 earlier and now rechecked at 158/84. Denies nausea. BT hypoactive but states she is passing flatus. Has not had a BM since 01/02 but currently has no bowel meds ordered. Is voiding on toilet and denies dysuria or urgency but has chronic frequency. Is able to turn herself in bed. Provided SBA when up to bathroom for safety. Denies any abdominal pain but complaining of headache but declines offer to call MD for Tylenol order. States she will wait for when she is able to have Oxycodone again; ice pack provided for comfort. Continues to decline use of SCD's as they keep her awake. Fall risk score is moderate; bed alarm is activated.
[2020-01-07] MEDS: OXYCODONE IR 5 MG TABLET 15 MG PO ×2 (01:56→10:46)
[2020-01-07] MEDS: SODIUM CHLORIDE 0.9% 1,000 ML 100 ML IV ×2 (02:51→12:18)
[2020-01-07] MEDS: ONDANSETRON 4 MG ODT PO ×2 (06:16→15:55)
[2020-01-07] MEDS: PROCHLORPERAZINE 10 MG/2 ML VIAL IV ×3 (06:54→19:39)
[2020-01-07 07:32] LABS: Add Manual Diff / Slide Review NO; Basophils Absolute Auto 0 /uL (0-100); Basophils Percent Auto 0.1 % (0-2); Eosinophils Absolute Auto 0 /uL (0-450); Eosinophils Percent Auto 0.3 % (2-4); Hematocrit 35.3 % (36-46); Hemoglobin 12.4 g/dL (12.0-16.0); Lymphocytes Absolute Auto 1000 /uL (1100-4500); Lymphocytes Percent Auto 12.9 % (25-40); Mean Corpuscular HGB Conc 35.2 % (30-36); Mean Corpuscular Hemoglobin 28.8 PG (26-34); Mean Corpuscular Volume 81.7 fL (80-100); Monocytes Absolute Auto 500 /uL (0-900); Monocytes Percent Auto 6.1 % (3-14); Neutrophils Absolute Auto 5900 /uL (1500-7000); Neutrophils Percent Auto 80.6 % (50-75); Platelet Count 260 X10^3/uL (150-400); Red Blood Cell Count 4.33 X10^6/uL (4.0-5.2); Red Cell Distribution Width 13.9 % (11.6-14.8); White Blood Cell Count 7.4 X10^3/uL (4.5-11.0)
[2020-01-07 07:39] LABS: Alanine Aminotransferase 39 IU/L (<35); Albumin 4.5 g/dL (3.5-5.0); Albumin Globulin Ratio 1.6 (1.0-2.8); Alkaline Phosphatase 83 U/L (38-126); Aspartate Aminotransferase 52 IU/L (14-36); BUN Creatinine Ratio 21.1 (6-22); Bilirubin Total 0.7 mg/dL (0.2-1.3); Blood Urea Nitrogen 12 mg/dL (7-17); Calcium 9.4 mg/dL (8.4-10.2); Carbon Dioxide 24 mmol/L (22-32); Chloride 102 mmol/L (98-107); Estimated Glomerular Filt Rate > 60.0 mL/min (>60); Globulin 2.9 g/dL (1.7-4.1); Glucose 194 mg/dL (70-100); HEMOLYSIS < 15 (0-50); Magnesium 1.7 mg/dL (1.6-2.3); Potassium 3.4 mmol/L (3.4-5.1); Sodium 136 mmol/L (137-145); Total Protein 7.4 g/dL (6.3-8.2)
[2020-01-07] MEDS: METOPROLOL ER 50 MG TABLET 100 MG PO (08:25)
[2020-01-07] MEDS: LORazepam 1 MG TABLET 2 MG PO ×3 (08:25→20:40)
[2020-01-07] MEDS: AMLODIPINE 5 MG TABLET 10 MG PO (08:25)
[2020-01-07] MEDS: FLUoxetine 20 MG CAPSULE PO (08:25)
[2020-01-07] MEDS: ENOXAPARIN 40 MG/0.4 ML SYRINGE SUBCUT (08:26)
[2020-01-07] MEDS: INSULIN ASPART 100 UNIT/ML INSULN PEN SUBCUT ×4 (08:27→20:43)
--- NOTE | 2020-01-07 10:16 | P.PN_ITS ---
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 Patient is resting in bed comfortably. Planned to discharge patient home today but patient had recurrence of her mild abdominal pain, nausea and vomiting. She is unable to advance diet further. She has no other complaints and denies headache, chest pain, shortness of breath, nausea, vomiting, fever, chills, dysuria, or diarrhea. She is voiding without difficulty. She has not had a bowel movement since admission. Patient is up ambulating without assistance. Exam Vital Signs (past 8 hours): - 01/07/20 13:49 01/07/20 15:29 01/07/20 16:41 Temperature 99.0 F Pulse Rate 79 76 63 Respiratory Rate 20 Blood Pressure 141/111 H 199/115 H Pulse Oximetry 97 01/07/20 19:08 Temperature Pulse Rate 68 Respiratory Rate 16 Blood Pressure 193/119 H Pulse Oximetry 96 Oxygen Delivery Method Room Air Oxygen Flow Rate 0 Narrative Exam Narrative: General: Middle-aged female lying in bed and in no acute distress, well-d eveloped, well-nourished, appropriately interactive. HEENT: Normocephalic, atraumatic. External ears without defect. Pupils equal, round, and reactive to light. Anicteric sclerae, moist conjunctivae, and no lid lag. Oropharynx free of erythema and cobble stoning with moist mucosa. Neck: Supple with full range of motion. No jugular venous distension. No lymphadenopathy or thyromegaly. Cardiovascular: Regular rhythm, tachycardic, without murmurs, rubs, or gallops appreciated. Pulmonary: Clear to auscultation bilaterally without crackles, wheezes, or rhonchi. Normal respiratory effort with no use of accessory muscles. Abdomen: Soft, bowel sounds hypoactive, mild epigastric tenderness to pal pation, nondistended. Extremities: No clubbing, cyanosis, or edema. Skin: Normal temperature, turgor, and texture; no rash, ulcers, or subcutaneous nodules appreciated. Neurological: Cranial nerves grossly intact. Psychiatric: Normal mood and flat affect. Alert and oriented to person, place, and time. Objective Labs Result Diagrams: 01/07/20 07:12 01/08/20 05:55 Labs: Laboratory Results - last 24 hr 01/07/20 01/07/20 07:12 07:12 WBC 7.4 RBC 4.33 Hgb 12.4 Hct 35.3 L MCV 81.7 MCH 28.8 MCHC 35.2 RDW 13.9 Plt Count 260 Neut % (Auto) 80.6 H Lymph % (Auto) 12.9 L [place] % (Auto) 6.1 Eos % (Auto) 0.3 L Baso % (Auto) 0.1 Neut # (Auto) 5900 Lymph # (Auto) 1000 L [place] # (Auto) 500 Eos # (Auto) 0 Baso # (Auto) 0 Sodium 136 L Potassium 3.4 Chloride 102 Carbon Dioxide 24 BUN 12 Creatinine 0.57 Estimated GFR > 60.0 BUN/Creatinine Ratio 21.1 Glucose 194 H Calcium 9.4 Magnesium 1.7 Total Bilirubin 0.7 AST 52 H ALT 39 H Alkaline Phosphatase 83 Total Protein 7.4 Albumin 4.5 Globulin 2.9 Albumin/Globulin Ratio 1.6 Assessment & Plan Assessment & Plan narrative: Sheela Shaw is a 54-year-old female with a past medical history significant for hypertension, hyperlipidemia, diabetes mellitus type 2, insulin using, bipolar 1 disorder, major depressive disorder, anxiety, chronic pain syndrome on Suboxone, HERRING, hypersomnia with obstructive sleep apnea and chronic pancreatitis who is admitted for recurrent episode of pancreatitis. 1. Acute on chronic pancreatitis with possible pancreatitic head necrosis, secondary to sphincter of Oddi dysfunction, present on admission. Resolving. -Patient presented with nausea and vomiting with mild abdominal epigastric abdominal pain unable to tolerate PO intake which is similar to previous episodes of pancreatitis. Patient reports recent GI evaluation in early spring 2019 with endoscopic ultrasound which redemonstrated sphincter of Oddi dysfunction. Recommend continued follow up with GI to discuss and pursue treatment. -CT abdomen and pelvis with contrast demonstrated chronic pancreatitis with minimal stranding around the pancreatic head possibly indicative of acute pancreatitis, a small area of ill-defined hypoenhancement is noted in the pancreatic head, which is new and may be secondary to irregular dilation of pancreatic duct or a small area of pancreatic necrosis and no pancreatic pseudocysts. Noted cholecystectomy with intrahepatic biliary dilation, subtle nodular contour of liver suggestive of cirrhosis, and mild splenomegaly. -MRCP demonstrated mild retroperitoneal edema adjacent to the duodenum and pancreatic head which is increased compatible with acute on chronic pancreatitis, no loculated peripancreatic fluid collection, chronic calcific pancreatitis, mild stable intrahepatic biliary ductal dilatation and CBD is normal. Consider multiphase CT pancreas or MRI pancreas with IV contrast as outpatient or if patient's pancreatitis is not improving. -Initial lipase 90. No need to trend as lipase is not accurate marker in chronic pancreatitis. -Held losartan and statin in setting of pancreatitis. -Continue IV fluids with normal saline at 100 mL/hr, pain control with oxycodone 15 mg as needed every 8 hours for severe pain and hydromorphone 1 mg IV as needed every 6 hours for severe break through pain, Zofran4 mg every 8 hours as needed for nausea and COmpazine 10 mg every 6 hours as needed for nausea and plan to slowly advance diet today as tolerated. 2. Severe dehydration, present on admission. Resolved. -Continue IV fluids along with anti-emetics as above for bowel rest. 3. Chronic pain on suboxone, present on admission. Active. -Continue oxycodone 15 mg every 8 hours as needed for severe pain and hydromorphone 1 mg IV every 6 hours as needed for severe break through pain. -Patient will need to be off opiates 6-12 hours before restarting buprenorphine which has been held. -Patient also reports she is on ketamine 100 mg PO 8 times a day per PMR specialist?? 4. Diabetes type 2, insulin-using, with neuropathy, present on admission. Stable. -Hemoglobin A1c 5.3% indicative of tight glycemic control and significantly improved since last admission. Patient has complication of neuropathy of feet and fingertips. -Continue [facility] blood glucose checks and high dose correctional scale insulin while slowly advancing diet and will confirm lantus dose and restart when able to take in PO intake consistently. 5. Hypertension, acute on chronic, present on admission. Improved. -Patient with significantly elevated SBP 200's on admission likely related to pain and continue pain management as above. -Continue amlodipine 10 mg daily and metoprolol succinate 100 mg daily. Held lisinopril to avoid kidney injury with N/V. -Ordered labetolol 10 mg every 4 hours as needed for SBP > 180 mmHg sustained for 15 minutes. 6. Hyperlipidemia, chronic, present on admission. Stable. -Held atorvastatin 80 mg daily and fenofibrate during acute episode. 7. 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 -Patient with mildly elevated transaminases on admission with: Total bilirubin 0.8, AST 80, ALT 53 and alkaline phosphatase 92. LFTs continue to be stable and slightly downward trending. -CT demonstrated cholecystectomy with intrahepatic biliary dilation, subtle nodular contour of liver suggestive of cirrhosis, and mild splenomegaly. -Recommend outpatient referral to hepatology for further evaluation and treatment. 8. Bipolar 1 disorder, chronic, present on admission. Stable. -Patient is on multiple psychotropic medications for bipolar 1, depression and anxiety. -Continued home fluoxetine 20 mg daily and quetiapine 400 mg at bedtime and 100 mg three times daily as needed during the day. Patient is on both methylphenidate 10 mg 4 times daily as well as lorazepam 3 times daily but due ti drowsiness decreased lorazepam 2 mg three times daily as need for anxiety and held methylphenidate to 10 mg 3 times daily. 9. Benzodiazepine dependency, chronic, present on admission. Stable. -Dependence appears to be quite severe at 4 mg three times daily. Patient was noted to be oversedated on admission -Begin by cutting dose in half to 2 mg three times daily and hold if asleep or sedated. Code Status: Full Code VTE prophylaxis: SCDs and Lovenox Disposition: Patient will likely discharge home tomorrow if able to tolerate liquid or soft diet and nausea and vomiting improved.
[2020-01-07] MEDS: ONDANSETRON 4 MG/2 ML INJ IV (10:46)
[2020-01-07] MEDS: MAGNESIUM SULFATE 2 GM/50 ML PIGGYBACK IV (12:18)
[2020-01-07] MEDS: POTASSIUM CHLORIDE 20 MEQ in SODIUM CHLORIDE 0.9% 250 ML 130 ML IV (14:31)
--- NOTE | 2020-01-07 15:18 | DIET.PN ---
Dietary Progress Note Assessment: 54y F admitted for severe N/V and chronic pancreatitis referred to nutrition for chronic pancreatitis. Pt has med hx of chronic pancreatitis, HTN, DM2 c neuropathy, steatosis, renal insufficiency, and bipolar 1 c chronic benzodiazapine use. Pt lives c who also has DM2 and does all the cooking and food shopping. They follow Mediterranean diet and fairly low fat diet. Pt eats fairly regimented diet. Usual Intake: B: toast c pb and banana or oatmeal c 1 tbs craisins and nuts, [place]je[place] tea c milk and honey L: baked fish, scallops, chicken tacos, lilly tacos, 3oz steak once per week D: 4d/w has veggies c sunflower and pumpkin seeds, chickpeas, and kippered troncoso, Sundays they order vegetarian pizza, and they order out ([place], grenadian, tajik, bel[place]ian) Sn: hummus c veggies, 2-3 oreos, 1/4 c dark chocolate chips (70%) Pt drinks 46-60oz water daily Pt eats a radish each evening per dr. bonilla for bitter as pancreatitis support food. When going through common food triggers: pt has no etoh intake, pt follows moderately low fat diet, pt eats small, frequent meals, pt eats high fiber diet, pt mostly avoids spicy foods. Pt had pizza saturday for lunch and dinner then beef vindaloo Saturday which pt and feel may have been too closely spaced. Pt reports last A1c was 5.1, has been experiencing overnight BG lows in 60s. Pt wants to discuss modifying insulin regimen c PCP. HT: 187.9cm WT: 103.3kg BMI: 29.2 Labs: elevated BGs 153-194, AST 52 H, ALT 39 H, BP elevated (202/118, 199/166) MNA: 12 Magdiel: 22 Interventions: 1. If similar pains start happening again, create a food diary for the past several days in order to start investigating possible food combination triggers. 2. Recc switching to grass-fed red meat and choosing lean cuts to reduce fat and provide better fat profile, limiting to once per week. 3. On Sundays, ask for pizza light on the cheese being careful to not cluster high fat foods. Diet Order: Full Liquid/Soft Low Residue EER: 90g PRO (0.9g/kg), 2,000kcal (20kcal/kg)
[2020-01-07] MEDS: LABETALOL 20 MG/4 ML SYRINGE 10 MG IV ×2 (16:39→20:40)
[2020-01-07] MEDS: HYDROMORPHONE 1 MG INJ IV (18:25)
[2020-01-07] MEDS: ZOLPIDEM 5 MG TABLET 10 MG PO (20:40)
[2020-01-07] MEDS: QUETIAPINE 200 MG TABLET 400 MG PO (20:44)
[2020-01-08] MEDS: SODIUM CHLORIDE 0.9% 1,000 ML 100 ML IV (02:59)
[2020-01-08 04:00] VITALS: BP 194/98; PULSE 71; RESP 16; TEMP 37.2; O2SAT 96
[2020-01-08 04:08] VITALS: BP 194/98; PULSE 71
[2020-01-08] MEDS: PROCHLORPERAZINE 10 MG/2 ML VIAL IV (04:08)
[2020-01-08] MEDS: HYDROMORPHONE 1 MG INJ IV (04:09)
[2020-01-08 04:50] VITALS: BP 172/87
[2020-01-08 06:13] LABS: Alanine Aminotransferase 31 IU/L (<35); Albumin 3.9 g/dL (3.5-5.0); Albumin Globulin Ratio 1.6 (1.0-2.8); Alkaline Phosphatase 69 U/L (38-126); Aspartate Aminotransferase 38 IU/L (14-36); Bilirubin Total 0.4 mg/dL (0.2-1.3); Blood Urea Nitrogen 11 mg/dL (7-17); Carbon Dioxide 27 mmol/L (22-32); Chloride 102 mmol/L (98-107); Estimated Glomerular Filt Rate > 60.0 mL/min (>60); Globulin 2.5 g/dL (1.7-4.1); Glucose 186 mg/dL (70-100); HEMOLYSIS < 15 (0-50); Magnesium 1.9 mg/dL (1.6-2.3); Potassium 3.2 mmol/L (3.4-5.1); Sodium 135 mmol/L (137-145); Total Protein 6.4 g/dL (6.3-8.2)
[2020-01-08 07:50] VITALS: BP 188/100; PULSE 65; RESP 16; TEMP 35.6; O2SAT 95
[2020-01-08] MEDS: ENOXAPARIN 40 MG/0.4 ML SYRINGE SUBCUT (08:12)
[2020-01-08] MEDS: LORazepam 1 MG TABLET 2 MG PO (08:12)
[2020-01-08] MEDS: FLUoxetine 20 MG CAPSULE PO (08:12)
[2020-01-08 08:13] VITALS: BP 188/100; PULSE 65
[2020-01-08] MEDS: METOPROLOL ER 50 MG TABLET 100 MG PO (08:13)
[2020-01-08] MEDS: AMLODIPINE 5 MG TABLET 10 MG PO (08:13)
[2020-01-08] MEDS: INSULIN ASPART 100 UNIT/ML INSULN PEN SUBCUT (08:20)
[2020-01-08 09:42] VITALS: BP 160/90; PULSE 60
--- NOTE | 2020-01-08 10:39 | CM.DPNOTE ---
DC Note Met w/patient and spouse at bedside during multidisciplinary rounds this morning. Dr Carney is discharging patient home today, patient has no needs from this [facility] P: DC home w/spouse today and close outpt f/u JW
--- NOTE | 2020-01-08 12:08 | P.DS_ITS ---
History of Present Illness History of Present Illness Date Patient Seen: 01/05/20 Chief complaint: nausea, vomiting, cant drink Narrative: Written by Dr. Correa: This is a 54 year old female patient with history significant for a history of chronic pancreatitis, hypertension, type 2 diabetes with neuropathy, steatosis, renal insufficiency, and hypersomnia with obstructive sleep apnea, bipolar 1 disorder with major depressive disorder and anxiety. She also has significant benzodiazepine dependency. She presents today with severe nausea/vomiting, this time without the abdominal pain she had with her pancreatitis episode here in August. The liver enzymes are much lower with an AST of 63 and ALT of 48 compared to then. The white blood count is only 9.1 and the lactate is only 1.2. Her symptoms of severe nausea began yesterday and were initially treated at Dr. Tomlinson's office today with IV fluids before the decision was made to send her to the emergency department and then admit her because her nausea was relentless. She has been treated today already with Zofran, Ativan, Reglan and Compazine. Her lipase is normal this time, but was in the thousands when last admitted. The CT scan does not show acute pancreatitis, and in fact is improved compared to the CT from August. There is cirrhosis and dilated bile ducts in the liver. She is on extremely high doses of anxiety medicines for her bipolar and tells me that if she does not get her quetiapine she will become anxious, that if she does not get her extremely high doses of lorazepam she will become anxious and if she does not get her buprenorphine she will become anxious. Buprenorphine is not on the listed admission medications but methylphenidate is. That discrepancy will need to be clarified. She appears to be over sedated, as would be expected from receiving all those anti nausea medicines and taking those doses of psychotropics. Each medication will need to be carefully given, held if she is sedated/sleeping and the medicines that are not clear in her history will need to be resumed only if needed. At this point we will not be giving her the buprenorphine or the methylphenidate and the lorazepam dose will be cut in half to 2 mg TID. Discharge Providers Provider Date of admission: 01/05/20 18:06 Discharge Date: 01/08/20 Primary care physician: Neftaly Tomlinson MD Consults: 01/05/20 20:03 Consult to Dietitian, Adult Routine Comment: Reason For Exam: Chronic Pancreatitis Discharge provider: Missy Carney DO Summary Hospital Course Discharge Diagnosis: 1. Acute on chronic pancreatitis with possible pancreatitic head necrosis, secondary to sphincter of Oddi dysfunction, present on admission. Resolving. 2. Severe dehydration, present on admission. Resolved. 3. Chronic pain on suboxone, present on admission. Active. 4. Diabetes type 2, insulin-using, with neuropathy, present on admission. Stable. 5. Hypertension, acute on chronic, present on admission. Improved. 6. Hyperlipidemia, chronic, present on admission. Stable. 7. 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 8. Bipolar 1 disorder, chronic, present on admission. Stable. 9. Benzodiazepine dependency, chronic, present on admission. Stable. Hospital Course: Sheela Shaw is a 54-year-old female with a past medical history significant for hypertension, hyperlipidemia, diabetes mellitus type 2, insulin using, bipolar 1 disorder, major depressive disorder, anxiety, chronic pain syndrome on Suboxone, HERRING, hypersomnia with obstructive sleep apnea and chronic pancreatitis who is admitted for recurrent episode of pancreatitis. 1. Acute on chronic pancreatitis with possible pancreatitic head necrosis, secondary to sphincter of Oddi dysfunction, present on admission. Resolving. -Patient presented with nausea and vomiting with mild abdominal epigastric abdominal pain unable to tolerate PO intake which is similar to previous episodes of pancreatitis. Patient reports recent GI evaluation in early spring 2019 with endoscopic ultrasound which redemonstrated sphincter of Oddi dysfun ction. Recommend continued follow up with GI to discuss and pursue treatment. -CT abdomen and pelvis with contrast demonstrated chronic pancreatitis with minimal stranding around the pancreatic head possibly indicative of acute pancreatitis, a small area of ill-defined hypoenhancement is noted in the pancreatic head, which is new and may be secondary to irregular dilation of pancreatic duct or a small area of pancreatic necrosis and no pancreatic pseudocysts. Noted cholecystectomy with intrahepatic biliary dilation, subtle nodular contour of liver suggestive of cirrhosis, and mild splenomegaly. -MRCP demonstrated mild retroperitoneal edema adjacent to the duodenum and pancreatic head which is increased compatible with acute on chronic pancreatitis, no loculated peripancreatic fluid collection, chronic calcific pancreatitis, mild stable intrahepatic biliary ductal dilatation and CBD is no rmal. Consider multiphase CT pancreas or MRI pancreas with IV contrast as outpatient or if patient's pancreatitis is not improving/recurs. -Initial lipase 90. No need to trend as lipase is not accurate marker in chronic pancreatitis. -Held losartan and statin in setting of pancreatitis. -Continued IV fluid hydration with normal saline at 100 mL/hr, pain control with oxycodone 15 mg as needed every 8 hours for severe pain and hydromorphone 1 mg IV as needed every 6 hours for severe break through pain, Zofran 4 mg every 8 hours as needed for nausea and Compazine 10 mg every 6 hours as needed for nausea and plan to slowly advance diet today as tolerated. 2. Severe dehydration, present on admission. Resolved. -Continued IV fluids along with anti-emetics as above for bowel rest. 3. Chronic pain on suboxone, present on admission. Active. -Continued oxycodone 15 mg every 8 hours as needed for severe pain and hydromorphone 1 mg IV every 6 hours as needed for severe break through pain. Patient will need to be off opiates 6-12 hours before restarting buprenorphine w hich has been held. -Patient also reports she is on ketamine 100 mg PO 8 times a day per PMR special ist?? 4. Diabetes type 2, insulin-using, with neuropathy, present on admission. Stable. -Hemoglobin A1c 5.3% indicative of tight glycemic control and significantly improved since last admission. Patient has complication of neuropathy of feet and fingertips. -Continued ACHS blood glucose checks and high dose correctional scale insulin while slowly advancing diet. Recommended patient hold off on restarting Lantus until diet is close to normal. 5. Hypertension, acute on chronic, present on admission. Improved. -Patient with significantly elevated SBP 200's on admission likely related to pain and continue pain management as above. -Continued amlodipine 10 mg daily and metoprolol succinate 100 mg daily. Held lisinopril to avoid kidney injury with N/V. Ordered labetolol 10 mg every 4 hours as needed for SBP > 180 mmHg sustained for 15 minutes. 6. Hyperlipidemia, chronic, present on admission. Stable. -Held atorvastatin 80 mg daily and fenofibrate during acute episode. 7. 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 -Patient with mildly elevated transaminases on admission with: Total bilirubin 0.8, AST 80, ALT 53 and alkaline phosphatase 92. LFTs continue to be stable and slightly downward trending. -CT demonstrated cholecystectomy with intrahepatic biliary dilation, subtle nodular contour of liver suggestive of cirrhosis, and mild splenomegaly. -Recommend outpatient referral to hepatology for further evaluation and treatme nt. 8. Bipolar 1 disorder, chronic, present on admission. Stable. -Patient is on multiple psychotropic medications for bipolar 1, depression and anxiety. -Continued home fluoxetine 20 mg daily and quetiapine 400 mg at bedtime and 100 mg three times daily as needed during the day. Patient is on both methylphenidate 10 mg 4 times daily as well as lorazepam 3 times daily but due to drowsiness decreased lorazepam 2 mg three times daily as need for anxiety and held methylphenidate to 10 mg 3 times daily. 9. Benzodiazepine dependency, chronic, present on admission. Stable. -Dependence appears to be quite severe at 4 mg three times daily. Patient was noted to be over-sedated on admission. -Decreased dose to 2 mg three times daily and held if asleep or sedated. Recommend continued titration down and off as outpatient. Exam Vital Signs (past 8 hours): - 01/08/20 04:50 01/08/20 07:50 01/08/20 08:13 Temperature 96.0 F L Pulse Rate 65 65 Respiratory Rate 16 Blood Pressure 172/87 H 188/100 H 188/100 H Pulse Oximetry 95 01/08/20 09:42 Temperature Pulse Rate 60 Respiratory Rate Blood Pressure 160/90 H Pulse Oximetry Oxygen Delivery Method Room Air Oxygen Flow Rate 0 Narrative Exam Narrative: General: Middle-aged female lying in bed and in no acute distress, well- developed, well-nourished, appropriately interactive. HEENT: Normocephalic, atraumatic. External ears without defect. Pupils equal, round, and reactive to light. Anicteric sclerae, moist conjunctivae, and no lid lag. Oropharynx free of erythema and cobble stoning with moist mucosa. Neck: Supple with full range of motion. No jugular venous distension. No lymphadenopathy or thyromegaly. Cardiovascular: Regular rhythm, tachycardic, without murmurs, rubs, or gallops appreciated. Pulmonary: Clear to auscultation bilaterally without crackles, wheezes, or rhonchi. Normal respiratory effort with no use of accessory muscles. Abdomen: Soft, bowel sounds hypoactive, mild epigastric tenderness to palpation, nondistended. Extremities: No clubbing, cyanosis, or edema. Skin: Normal temperature, turgor, and texture; no rash, ulcers, or subcutaneous nodules appreciated. Neurological: Cranial nerves grossly intact. Psychiatric: Normal mood and flat affect. Alert and oriented to person, place, and time. Objective Labs Result Diagrams: 01/07/20 07:12 01/08/20 05:55 Labs: Laboratory Results - last 24 hr 01/08/20 05:55 Sodium 135 L Potassium 3.2 L Chloride 102 Carbon Dioxide 27 BUN 11 Creatinine 0.55 Estimated GFR > 60.0 BUN/Creatinine Ratio 20.0 Glucose 186 H Calcium 9.0 Magnesium 1.9 Total Bilirubin 0.4 AST 38 H ALT 31 Alkaline Phosphatase 69 Total Protein 6.4 Albumin 3.9 Globulin 2.5 Albumin/Globulin Ratio 1.6 Discharge Plan Discharge Plan Patient Disposition: Home Discharge comment: You are being discharged home. You had an acute flare of your chronic pancreatitis likely due to sphincter of Oddi dysfunction. Continue to slowly advance diet as tolerated. You may restart your Suboxone 6-12 hours after your last narcotic dose (4 am last dose). Recommend following up with your GI specialist regarding discussion of the treatments available for sphincter of Oddi dysfunction. Also recommend hepatology referral for evaluation and treatment of probable early liver cirrhosis due to HERRING. Recommend decreasing lorazepam dose to 2 mg 3 times daily which you have been on here and your anxiety has been stable and considering to continue decreasing dose over time. Discharge orders & Medications Prescriptions: Continued metoprolol succinate [Toprol XL] 100 MG tablet extended release 24 hr 100 mg PO DAILY Qty: 0 RF: 0 fenofibrate 160 MG tablet 160 mg PO DAILY Qty: 0 RF: 0 Lantus U-100 Insulin 100 UNIT/1 ML solution 50 unit SQ DAILY Qty: 0 RF: 0 Lantus U-100 Insulin 100 UNIT/1 ML solution 30 unit SQ QPM Qty: 0 RF: 0 insulin aspart U-100 [Novolog U-100 Insulin aspart] 100 UNIT/1 ML solution 10 - 25 unit SQ TIDAC Qty: 0 RF: 0 metoclopramide HCl [Reglan] 5 MG tablet 10 mg PO QID PRN (Reason: Nausea) Qty: 0 RF: 0 quetiapine [Seroquel] 400 MG tablet 400 mg PO BEDTIME Qty: 0 RF: 0 quetiapine [Seroquel] 100 MG tablet 100 mg PO TID PRN (Reason: episodes) Qty: 0 RF: 0 methylphenidate HCl 10 mg tablet 10 mg PO TID RF: 0 omega-3 acid ethyl esters 1 gram Capsule 2 cap PO BID RF: 0 tizanidine 2 mg Tablet 2 mg PO Q8H PRN (Reason: Spasms) RF: 0 amlodipine 10 mg tablet 10 mg PO DAILY Qty: 30 RF: 0 tramadol 50 mg tablet 50 mg PO Q6-8H PRN (Reason: pain) Qty: 20 RF: 0 ondansetron 4 mg tablet,disintegrating 4 mg PO Q4H PRN (Reason: nausea and vomiting) 1 Days Qty: 20 RF: 0 atorvastatin 80 mg tablet 80 mg PO DAILY RF: 0 valacyclovir 500 mg tablet 500 mg PO DAILY PRN (Reason: herpes) RF: 0 lisinopril 5 mg tablet 5 mg PO DAILY RF: 0 metformin 500 mg tablet extended release 24 hr 500 mg PO DAILY RF: 0 zolpidem 12.5 mg tablet,ext release multiphase 12.5 mg PO BEDTIME RF: 0 buprenorphine-naloxone 2-0.5 mg film 1 film sublingual DAILY RF: 0 fluoxetine 20 mg capsule 60 mg PO DAILY RF: 0 Changed lorazepam 2 MG tablet 2 mg PO TID Qty: 0 RF: 0 Follow up/Referrals: Neftaly Tomlinson MD [Primary Care Provider] - 1 Week Diet/Activity/Treatments Diet: Full Liquid and Low-fat Diet comment: liquid and soft food, bland, low fat and fiber diet Activity: Activity as tolerated Visit Report/Discharge Packet Instructions: Chronic Pancreatitis, Low-Fiber/Low-Residue Diet Visit Report Forms: Patient Portal/API, Stroke Signs & Symptoms Discharge Data Primary Care Provider: Neftaly Tomlinson Discharges patient from system. Discharge Date/Time: 01/08/20 12:00
--- NOTE | 2020-01-08 12:17 | PC.NURSE ---
Day shift note: Patient awake, alert, and pleasant. NO C/O nausea or pain, mild tenderness to epigastrium to palpation. Tolerating diet. Ambulating in room, independently. States will resume home bowel prep regimen. VSS and afebrile. Voiding QS. Discharge instructions given to patient and , discussed importance of follow with Dr. Tomlinson, medication changes, and diet. Both patient and verbalized understanding of instructions. Discharge home via private vehicle.
== END 2020-01-08 12:00 | disposition home or self-care (01) | DRG 439 ==
LOC: ED 18:04 → AC 18:06
PROVIDERS: Family Medicine; Internal Medicine; Admitting Provider Internal Medicine; Emergency Provider Emergency Medicine; PCP Internal Medicine; Referring Provider Emergency Medicine; Visit Provider Internal Medicine
DX: K85.91 Acute pancreatitis with uninfected necrosis, unspecified (principal); F13.20 Sedative, hypnotic or anxiolytic dependence, uncomplicated; K86.1 Other chronic pancreatitis; K83.4 Spasm of sphincter of Oddi; K75.81 Nonalcoholic steatohepatitis (NASH); E86.0 Dehydration; I10 Essential (primary) hypertension; E11.40 Type 2 diabetes mellitus with diabetic neuropathy, unspecified; G47.10 Hypersomnia, unspecified; G47.33 Obstructive sleep apnea (adult) (pediatric); E78.2 Mixed hyperlipidemia; F31.9 Bipolar disorder, unspecified; Z79.4 Long term (current) use of insulin; G89.4 Chronic pain syndrome; F11.90 Opioid use, unspecified, uncomplicated
CPT/HCPCS: 36415; 74177; 74181; 80053; 81001; 82962; 83036; 83605; 83690; 83735; 85025; 93005; 96361; 96374; 96375; 99284; J0780; J1100; J1170; J1200; J1650; J1885; J2060; J2405; J2765; J3480; Q9967

== ENCOUNTER → 2020-03-03 13:48 | Outpatient (CLI) | payer OTHER, SELFPAY ==
[2020-01-05 19:03] VITALS: BMI 29.2
--- NOTE | 2020-03-03 | DI.MRI.S_ITS ---
PROCEDURE: MR ABDOMEN WO/W CON INDICATIONS: ACUTE PANCREATITS TECHNIQUE: Coronal HASTE, axial 2D FLASH in- and [id number]; axial breath-hold T2 FSE with fat saturation from the hepatic dome to the iliac crests. Oblique coronal thin-slice and radial thick slab HASTE through the biliary system. Dynamic axial VIBE during administration of contrast. Post-contrast coronal VIBE or 2D FLASH with fat saturation from the hepatic dome to the iliac crests. Optional diffusion weighted imaging and ADC may be performed. COMPARISON: [facility], MR, MR ABDOMEN WO CON, 09/10/2019, 10:37. [facility], CT, CT ABDOMEN PELVIS W CON, 01/05/2020, 15:22. [facility], MR, MR ABDOMEN WO CON, 01/06/2020, 11:01. FINDINGS: Image quality: There is mild motion artifact. Pancreas and biliary system: The gallbladder is surgically absent. There is mild intra hepatic biliary ductal dilatation. The common bile duct is normal in caliber, measuring up to 0.6 cm. There is dilatation of the pancreatic duct in the pancreatic head and uncinate process redemonstrated, measuring up to 0.7 cm. There are multiple strictures demonstrated in the pancreatic body and tail. Findings are consistent with sequelae of chronic pancreatitis. No discrete pancreatic mass identified. No peripancreatic edema to suggest acute pancreatitis. No loculated peripancreatic fluid collections. Solid organs: The liver is slightly lobulated in contour. No discrete hepatic mass identified. Spleen is normal in size. No adrenal nodules. Kidneys demonstrate no hydronephrosis. Nodes and vessels: No retroperitoneal or mesenteric adenopathy by size criteria. Aorta and inferior vena cava are normal in size. Bowel and peritoneum: Visualized bowel loops are normal in caliber throughout. No free fluid. The Lung bases: No basal pleural effusions. Heart size is normal. Bones and soft tissues: No ventral hernias. Bone marrow is normal in overall signal. IMPRESSION: 1. Sequelae of chronic pancreatitis redemonstrated including pancreatic duct dilatation and multiple strictures. No MRI evidence of acute pancreatitis or peripancreatic fluid collections. No discrete pancreatic mass identified. 2. Mild intrahepatic biliary ductal dilatation without dilatation of the common bile duct. Dictated by: Rom Leslie M.D. on 03/03/2020 at 17:22 Approved by: Rom Leslie M.D. on 03/03/2020 at 17:29
== END ==
PROVIDERS: PCP Internal Medicine; Referring Provider Internal Medicine Gastroenterology; Visit Provider Internal Medicine Gastroenterology
DX: K85.90 Acute pancreatitis without necrosis or infection, unspecified (principal); K86.89 Other specified diseases of pancreas; K83.8 Other specified diseases of biliary tract; Z90.49 Acquired absence of other specified parts of digestive tract
CPT/HCPCS: 74183; A9579

== ENCOUNTER → 2020-05-17 10:53 | Outpatient (CLI) | payer OTHER, SELFPAY ==
[2020-01-05 19:03] VITALS: BMI 29.2
--- NOTE | 2020-05-17 10:56 | DI.RAD.S_ITS ---
PROCEDURE: XR HUMERUS RT 2V INDICATIONS: fall this morning TECHNIQUE: 2 views of the humerus were acquired. COMPARISON: [facility], CR, XR SHOULDER RT MIN 2V, 05/17/2020, 10:46. FINDINGS: Bones: No fractures or dislocations. No suspicious bony lesions. Soft tissues: No suspicious soft tissue calcifications. IMPRESSION: No acute fracture. No osseous lesion. If symptoms and/or clinical suspicion for pathology persist, further assessment with repeat, or advanced imaging (e.g., CT, MRI, or bone scan) may be helpful for further assessment. Dictated by: Hudson Go M.D. on 05/17/2020 at 11:18 Approved by: Hudson Go M.D. on 05/17/2020 at 11:18
--- NOTE | 2020-05-17 10:56 | DI.RAD.S_ITS ---
PROCEDURE: XR SHOULDER RT MIN 2V INDICATIONS: fall this morning TECHNIQUE: 3 views of the shoulder were acquired. COMPARISON: [facility], CR, XR SHOULDER RT MIN 2V, 01/26/2019, 18:24. FINDINGS: Bones: No fractures or dislocations. No suspicious bony lesions. Visualized ribs appear intact. Periarticular osteophyte formation at the acromioclavicular and glenohumeral joints. Soft tissues: No suspicious soft tissue calcifications. IMPRESSION: Osteoarthritis. No acute fracture. No osseous lesion. If symptoms and/or clinical suspicion for pathology persist, further assessment with repeat, or advanced imaging (e.g., CT, MRI, or bone scan) may be helpful for further assessment. Dictated by: Hudson Go M.D. on 05/17/2020 at 11:14 Approved by: Hudson Go M.D. on 05/17/2020 at 11:18
== END ==
PROVIDERS: PCP Internal Medicine; Referring Provider Nurse Practitioner; Visit Provider Nurse Practitioner
DX: M79.601 Pain in right arm (principal); M19.011 Primary osteoarthritis, right shoulder
CPT/HCPCS: 73030; 73060

== ENCOUNTER → 2020-05-20 10:02 | Outpatient (CLI) | payer OTHER, SELFPAY ==
[2020-01-05 19:03] VITALS: BMI 29.2
[2020-05-20 11:40] LABS: Add Manual Diff / Slide Review NO; Basophils Absolute Auto 0 /uL (0-100); Basophils Percent Auto 0.2 % (0-2); Eosinophils Absolute Auto 0 /uL (0-450); Eosinophils Percent Auto 0.8 % (2-4); Hematocrit 37.9 % (36-46); Hemoglobin 12.6 g/dL (12.0-16.0); Lymphocytes Absolute Auto 1000 /uL (1100-4500); Lymphocytes Percent Auto 15.6 % (25-40); Mean Corpuscular HGB Conc 33.2 % (30-36); Mean Corpuscular Hemoglobin 27.4 PG (26-34); Mean Corpuscular Volume 82.6 fL (80-100); Monocytes Absolute Auto 300 /uL (0-900); Monocytes Percent Auto 4.8 % (3-14); Neutrophils Absolute Auto 5000 /uL (1500-7000); Neutrophils Percent Auto 78.6 % (50-75); Platelet Count 259 X10^3/uL (150-400); Red Blood Cell Count 4.58 X10^6/uL (4.0-5.2); Red Cell Distribution Width 15.7 % (11.6-14.8); White Blood Cell Count 6.3 X10^3/uL (4.5-11.0)
[2020-05-20 11:58] LABS: INR 1.1 (0.9-1.3); Prothrombin Time 12.7 SECONDS (10.1-12.7)
[2020-05-20 12:07] LABS: Alanine Aminotransferase 54 IU/L (<35); Albumin 4.9 g/dL (3.5-5.0); Albumin Globulin Ratio 1.5 (1.0-2.8); Alkaline Phosphatase 103 U/L (38-126); Aspartate Aminotransferase 69 IU/L (14-36); BUN Creatinine Ratio 14.9 (6-22); Bilirubin Total 0.6 mg/dL (0.2-1.3); Blood Urea Nitrogen 14 mg/dL (7-17); Calcium 10.1 mg/dL (8.4-10.2); Carbon Dioxide 26 mmol/L (22-32); Chloride 99 mmol/L (98-107); Cholesterol 168 mg/dL (140-199); Estimated Glomerular Filt Rate > 60.0 mL/min (>60); Globulin 3.3 g/dL (1.7-4.1); Glucose 109 mg/dL (70-100); HDL Cholesterol 52 mg/dL (40-60); HEMOLYSIS < 15 (0-50); LDL Cholesterol Calculated 78 mg/dL (<100); Lipase 162 U/L (23-300); Potassium 3.8 mmol/L (3.4-5.1); Sodium 136 mmol/L (137-145); Total Protein 8.2 g/dL (6.3-8.2); Triglycerides 191 mg/dL (35-150)
[2020-05-21 04:41] LABS: Immunoglobulin A 210 mg/dL (87-352); Immunoglobulin G, Quantitative 723 mg/dL (586-1602)
[2020-05-21 19:27] LABS: t-Transglutaminase IgA <2 U/mL (0-3)
[2020-05-22 17:39] LABS: ANA Screen, IFA Negative (.)
== END ==
PROVIDERS: PCP Internal Medicine; Referring Provider Internal Medicine Gastroenterology; Visit Provider Internal Medicine Gastroenterology
DX: K85.90 Acute pancreatitis without necrosis or infection, unspecified (principal)
CPT/HCPCS: 36415; 80053; 80061; 82784; 83516; 83690; 84450; 84460; 85025; 85049; 85610; 86038

== ENCOUNTER 2020-05-25 21:19 | Emergency (ER) | payer OTHER, SELFPAY ==
[2020-01-05 19:03] VITALS: BMI 29.2
[2020-05-25] VITALS (7 sets, daily range): BP systolic 97–124; BP diastolic 62–76; PULSE 77–94; RESP 15–20; TEMP 36.9; O2SAT 94–97; BMI 27.6
[2020-05-25 21:53] LABS: Add Manual Diff / Slide Review NO; Basophils Absolute Auto 0 /uL (0-100); Basophils Percent Auto 0.4 % (0-2); Eosinophils Absolute Auto 100 /uL (0-450); Eosinophils Percent Auto 1.2 % (2-4); Hematocrit 36.8 % (36-46); Hemoglobin 12.1 g/dL (12.0-16.0); Lymphocytes Absolute Auto 1400 /uL (1100-4500); Lymphocytes Percent Auto 23.7 % (25-40); Mean Corpuscular HGB Conc 32.8 % (30-36); Mean Corpuscular Hemoglobin 27.2 PG (26-34); Monocytes Absolute Auto 400 /uL (0-900); Monocytes Percent Auto 6.1 % (3-14); Neutrophils Absolute Auto 3900 /uL (1500-7000); Neutrophils Percent Auto 68.6 % (50-75); Platelet Count 271 X10^3/uL (150-400); Red Blood Cell Count 4.44 X10^6/uL (4.0-5.2); Red Cell Distribution Width 15.8 % (11.6-14.8); White Blood Cell Count 5.8 X10^3/uL (4.5-11.0)
--- NOTE | 2020-05-25 21:53 | PC.NURSE ---
Pt states she has no GI hx. Today she reports that she vomited up a moderate amount of bright red clots/coffee ground emisis x 1 today. Has not had a BM to notice any blood in her stool. No abd pain but reports a queeziness and an acid like feeling in her stomach. Pt does appear pale but her and her state that she is naturally pale. VS stable.
[2020-05-25 22:03] LABS: Prothrombin Time 12.1 SECONDS (10.1-12.7)
[2020-05-25 22:05] LABS: PTT Partial Thromboplastin Tim 37 SECONDS (26.4-36.2)
[2020-05-25 22:06] LABS: Alanine Aminotransferase 93 IU/L (<35); Albumin 4.7 g/dL (3.5-5.0); Albumin Globulin Ratio 1.3 (1.0-2.8); Alkaline Phosphatase 99 U/L (38-126); Aspartate Aminotransferase 179 IU/L (14-36); BUN Creatinine Ratio 23.3 (6-22); Bilirubin Total 0.5 mg/dL (0.2-1.3); Blood Urea Nitrogen 20 mg/dL (7-17); Calcium 9.8 mg/dL (8.4-10.2); Carbon Dioxide 28 mmol/L (22-32); Chloride 101 mmol/L (98-107); Estimated Glomerular Filt Rate > 60.0 mL/min (>60); Globulin 3.5 g/dL (1.7-4.1); Glucose 173 mg/dL (70-100); HEMOLYSIS < 15 (0-50); Lipase 121 U/L (23-300); Potassium 4.2 mmol/L (3.4-5.1); Sodium 138 mmol/L (137-145); Total Protein 8.2 g/dL (6.3-8.2)
--- NOTE | 2020-05-25 22:47 | ED.GIBLEED ---
HPI - GI Bleed General Chief complaint: GI Bleed Stated complaint: vomited blood Time Seen by Provider: 05/25/20 22:43 Source: patient and family Mode of arrival: Wheelchair Limitations: no limitations History of Present Illness HPI Narrative: The patient had dinner about 6:00 p.m. tonight, but a p.m. she develops nausea vomiting. She had no diarrhea. She vomited blood. Nausea vomiting seems to have ceased. She is a nonsmoker, she does not drink alcohol. She has no history of PUD or GI bleeding. She does have HERRING. She is feeling little better, vomiting has stopped. She has been around no one similar illnesses. She denies recent illness. Related Data Home Medications Medication Instructions Recorded Confirmed Lantus U-100 Insulin 30 unit SQ QPM #0 09/19/17 01/06/20 Lantus U-100 Insulin 50 unit SQ DAILY #0 09/19/17 01/06/20 fenofibrate 160 mg PO DAILY #0 09/19/17 01/06/20 insulin aspart U-100 [Novolog 10 - 25 unit SQ TIDAC #0 09/19/17 01/06/20 U-100 Insulin aspart] metoclopramide HCl [Reglan] 10 mg PO QID PRN #0 09/19/17 01/06/20 metoprolol succinate [Toprol XL] 100 mg PO DAILY #0 09/19/17 01/06/20 quetiapine [Seroquel] 100 mg PO TID PRN #0 09/19/17 01/06/20 quetiapine [Seroquel] 400 mg PO BEDTIME #0 09/19/17 01/06/20 fluoxetine 20 mg capsule 60 mg PO DAILY 10/10/18 01/06/20 methylphenidate HCl 10 mg PO TID 04/17/19 01/06/20 omega-3 acid ethyl esters 2 cap PO BID 04/17/19 01/06/20 tizanidine 2 mg PO Q8H PRN 04/17/19 01/06/20 atorvastatin 80 mg PO DAILY 01/06/20 01/06/20 buprenorphine-naloxone 1 film SUBLINGUAL DAILY 01/06/20 01/06/20 lisinopril 5 mg PO DAILY 01/06/20 01/06/20 metformin 500 mg PO DAILY 01/06/20 01/06/20 valacyclovir 500 mg PO DAILY PRN 01/06/20 01/06/20 zolpidem 12.5 mg PO BEDTIME 01/06/20 01/06/20 Previous Rx's Medication Instructions Recorded amlodipine 10 mg PO DAILY #30 tab 09/13/19 tramadol 50 mg PO Q6-8H PRN #20 tab 01/05/20 lorazepam 2 mg PO TID #0 tab 01/08/20 ondansetron 4 mg PO Q4H PRN #20 tab 05/26/20 pantoprazole [Protonix] 40 mg PO QAM #14 tab 05/26/20 Allergies Allergy/AdvReac Type Severity Reaction Status Date / Time No Known Drug Allergies Allergy Verified 06/10/19 18:15 Review of Systems Constitutional Constitutional: Denies chills, Denies fever(s), Denies lethargy and Denies weakness Cardiovascular Cardiovascular: Denies chest pain, Denies irregular heart rhythm, Denies lightheadedness, Denies palpitations, Denies dyspnea, Denies dyspnea on exertion and Denies orthopnea Respiratory Respiratory: Denies cough, Denies dyspnea, Denies dyspnea on exertion and Denies wheezing Gastrointestinal Gastrointestinal: Reports as per HPI Genitourinary Genitourinary: Denies dysuria and Denies urinary urgency Genitourinary: Denies dysuria and Denies urinary urgency Musculoskeletal Musculoskeletal: Denies arthralgias and Denies back pain Integumentary/Breasts Skin/Breast: Denies pruritus, Denies erythema and Denies rash Neurologic Neurologic: Denies weakness Endocrine Endocrine: Denies palpitations Allergic/Immunologic Allergic/Immunologic: Denies wheezing Patient History Medical History Anxiety (Chronic) Arthritis (Acute) Bipolar 1 disorder (Chronic) Chronic pain syndrome (Chronic) Chronic pancreatitis (Inactive) Chronic pancreatitis (Acute) History of pancreatitis (Resolved) History of pulmonary embolism (Acute) Hypercholesterolemia with hypertriglyceridemia (Chronic) Hypersomnia (Chronic) Hypertension (Chronic) Major depressive disorder (Chronic) Neuropathy, diabetic (Acute) Nonalcoholic steatohepatitis (HERRING) (Chronic) Obesity (Chronic) Obstructive sleep apnea of adult (Chronic) Renal insufficiency (Acute) Snoring (Inactive) Type 2 diabetes mellitus (Chronic) Surgical History Fracture of right foot (Chronic) Gastrocnemius equinus of right lower extremity (Acute) H/O hysterectomy for benign disease (Acute) History of appendectomy (Acute) History of cholecystectomy (Acute) Lumbar post-laminectomy syndrome (Chronic) Right humeral fracture (Acute) Family History Father COPD (chronic obstructive pulmonary disease) Mother Hypertension Sister Fibromyalgia Social History marital status: details: rasheed Gaitan household members: spouse and children lives independently: Yes caregiver/support person: No occupational status: unemployed Smoking Status: Never smoker alcohol intake: former substance use type: marijuana Smoking Status: Never smoker alcohol intake frequency: 0-2 drinks per day Substance Use Type: marijuana Exam Initial Vital Signs Initial Vital Signs: Vital Signs Temperature 98.4 F 05/25/20 21:22 Pulse Rate 94 H 05/25/20 21:22 Respiratory Rate 18 05/25/20 21:22 Blood Pressure 97/62 05/25/20 21:22 Pulse Oximetry 97 05/25/20 21:22 Const General: cooperative and well developed Nutritional Appearance: well nourished [facility] Head: normocephalic and atraumatic Mouth: oral mucosae normal Eyes General: appearance normal, both eyes and all related structures Eyelids: eyelids normal Conjunctivae: conjunctivae normal Sclera: sclerae normal Pupils: PERRL EOM: EOM intact bilaterally Neck Thyroid: thyroid normal Resp Auscultation: clear to auscultation bilaterally Cardio Rate: regular rate Rhythm: regular rhythm Heart Sounds: S1 normal, S2 normal, no click, no gallops, no murmurs and no rubs Pulses: normal peripheral pulses GI Inspection: non-distended Palpation: soft, no hepatosplenomegaly, No guarding, No pulsatile mass and No tender Auscultation: normal bowel sounds Back/Spine/Pelvis Back: No CVA tenderness Skin General: no rashes or lesions noted, No jaundice and No petechiae Neuro General: patient alert, patient oriented x3, gait normal and no focal motor deficits Speech: speech normal Extrem General: full ROM, no pedal edema and no calf tenderness Course Course Course Narrative: The patient was given a normal saline bolus. She was given Zofran and Protonix IV. She has been asymptomatic since arrival. She possibly suffered a mucosal tear from the vomiting. There is no repeat vomiting or hematemesis Orders Ordered: ED Orders 05/25/20 21:36 EKG-12 Lead Stat 05/25/20 21:44 Complete Blood Count AUTO DIFF Stat Comprehensive Metabolic Panel Stat Lipase Stat Partial Thromboplastin Time Stat Prothrombin Time INR Stat Discontinued Medications Sodium Chloride (Normal Saline 0.9%) 1,000 mls @ 1,000 mls/hr IV BOLUS ONE Stop: 05/25/20 23:48 Last Infusion: 05/25/20 23:58 Dose: 0 mls/hr Documented by: Admin: 05/25/20 22:57 Dose: 1,000 mls/hr Documented by: SAM Ondansetron HCl (Zofran) 4 mg IV NOW ONE Stop: 05/25/20 22:50 Last Admin: 05/25/20 22:57 Dose: 4 mg Documented by: SAM Pantoprazole Sodium (Protonix) 40 mg IV NOW ONE Stop: 05/25/20 22:50 Last Admin: 05/25/20 22:57 Dose: 40 mg Documented by: SAM Vital Signs Vital signs: Vital Signs - 8 hr 05/25/20 21:22 05/25/20 21:59 05/25/20 22:00 Temperature 98.4 F Pulse Rate 94 H 83 83 Respiratory Rate 18 17 17 Blood Pressure 97/62 101/64 Pulse Oximetry 97 94 94 05/25/20 22:30 05/25/20 22:39 05/25/20 23:00 Temperature Pulse Rate 92 H 88 79 Respiratory Rate 20 15 16 Blood Pressure 105/74 124/75 113/76 Pulse Oximetry 96 95 95 05/25/20 23:30 Temperature Pulse Rate 77 Respiratory Rate 17 Blood Pressure 111/68 Pulse Oximetry 94 MDM - GI Bleed Lab Data Result diagrams: 05/25/20 21:44 05/25/20 21:44 Labs: Lab Results 05/25/20 05/25/20 05/25/20 Range/Units 21:44 21:44 21:44 WBC 5.8 (4.5-11.0) X10^3/uL RBC 4.44 (4.0-5.2) X10^6/uL Hgb 12.1 (12.0-16.0) g/dL Hct 36.8 (36-46) % MCV 83.0 (80-100) fL MCH 27.2 (26-34) PG MCHC 32.8 (30-36) % RDW 15.8 H (11.6-14.8) % Plt Count 271 (150-400) X10^3/uL Neut % (Auto) 68.6 (50-75) % Lymph % (Auto) 23.7 L (25-40) % [place] % (Auto) 6.1 (3-14) % Eos % (Auto) 1.2 L (2-4) % Baso % (Auto) 0.4 (0-2) % Neut # (Auto) 3900 (4981-6770) /uL Lymph # (Auto) 1400 (8454-2102) /uL [place] # (Auto) 400 (0-900) /uL Eos # (Auto) 100 (0-450) /uL Baso # (Auto) 0 (0-100) /uL PT 12.1 (10.1-12.7) SECONDS INR 1.0 (0.9-1.3) APTT 37 H (26.4-36.2) SECONDS Sodium 138 (137-145) mmol/L Potassium 4.2 (3.4-5.1) mmol/L Chloride 101 (98-107) mmol/L Carbon Dioxide 28 (22-32) mmol/L BUN 20 H (7-17) mg/dL Creatinine 0.86 (0.52-1.04) mg/dL Estimated GFR > 60.0 (>60) mL/min BUN/Creatinine Ratio 23.3 H (6-22) Glucose 173 H (70-100) mg/dL Calcium 9.8 (8.4-10.2) mg/dL Total Bilirubin 0.5 (0.2-1.3) mg/dL AST 179 H (14-36) IU/L ALT 93 H (<35) IU/L Alkaline Phosphatase 99 (38-126) U/L Total Protein 8.2 (6.3-8.2) g/dL Albumin 4.7 (3.5-5.0) g/dL Globulin 3.5 (1.7-4.1) g/dL Albumin/Globulin Ratio 1.3 (1.0-2.8) Lipase 121 (23-300) U/L Urine Dip Bedside Urine Glucose Negative Bedside Urine Bilirubin - Negative Bedside Urine Ketone - Negative Urine Specific [place] 1.030 Bedside Urine Occult Blood - Negative Bedside Urine pH 5.5 Bedside Urine Protein - Negative Bedside Urine Urobilinogen - Negative Bedside Urine Nitrite - Negative Bedside Urine Leukocytes - Negative Esterase Discharge Plan Departure Patient Disposition: Home Clinical Impression: Acute upper gastrointestinal hemorrhage Instructions: Gastrointestinal Bleeding Activity Restrictions/Additional Instructions: Protonix 40 mg daily for 2 weeks. Zofran every 4 hours as needed for nausea. Follow-up with your doctor for repeat evaluation. Return here if you experience increased bloody vomiting. Prescriptions: New pantoprazole [Protonix] 40 mg tablet,delayed release (DR/EC) 40 mg PO QAM Qty: 14 RF: 0 ondansetron 4 mg tablet,disintegrating 4 mg PO Q4H PRN (Reason: nausea and vomiting) Qty: 20 RF: 0 No Action metoprolol succinate [Toprol XL] 100 MG tablet extended release 24 hr 100 mg PO DAILY Qty: 0 RF: 0 fenofibrate 160 MG tablet 160 mg PO DAILY Qty: 0 RF: 0 Lantus U-100 Insulin 100 UNIT/1 ML solution 50 unit SQ DAILY Qty: 0 RF: 0 Lantus U-100 Insulin 100 UNIT/1 ML solution 30 unit SQ QPM Qty: 0 RF: 0 insulin aspart U-100 [Novolog U-100 Insulin aspart] 100 UNIT/1 ML solution 10 - 25 unit SQ TIDAC Qty: 0 RF: 0 metoclopramide HCl [Reglan] 5 MG tablet 10 mg PO QID PRN (Reason: Nausea) Qty: 0 RF: 0 quetiapine [Seroquel] 400 MG tablet 400 mg PO BEDTIME Qty: 0 RF: 0 quetiapine [Seroquel] 100 MG tablet 100 mg PO TID PRN (Reason: episodes) Qty: 0 RF: 0 methylphenidate HCl 10 mg tablet 10 mg PO TID RF: 0 omega-3 acid ethyl esters 1 gram Capsule 2 cap PO BID RF: 0 tizanidine 2 mg Tablet 2 mg PO Q8H PRN (Reason: Spasms) RF: 0 amlodipine 10 mg tablet 10 mg PO DAILY Qty: 30 RF: 0 tramadol 50 mg tablet 50 mg PO Q6-8H PRN (Reason: pain) Qty: 20 RF: 0 atorvastatin 80 mg tablet 80 mg PO DAILY RF: 0 valacyclovir 500 mg tablet 500 mg PO DAILY PRN (Reason: herpes) RF: 0 lisinopril 5 mg tablet 5 mg PO DAILY RF: 0 metformin 500 mg tablet extended release 24 hr 500 mg PO DAILY RF: 0 zolpidem 12.5 mg tablet,ext release multiphase 12.5 mg PO BEDTIME RF: 0 buprenorphine-naloxone 2-0.5 mg film 1 film sublingual DAILY RF: 0 lorazepam 2 MG tablet 2 mg PO TID Qty: 0 RF: 0 fluoxetine 20 mg capsule 60 mg PO DAILY RF: 0 Referrals: Neftaly Tomlinson MD [Primary Care Provider] -
[2020-05-25] MEDS: PANTOPRAZOLE 40 MG VIAL IV (22:57)
[2020-05-25] MEDS: SODIUM CHLORIDE 0.9% 1,000 ML 1000 ML IV (22:57)
[2020-05-25] MEDS: ONDANSETRON 4 MG/2 ML INJ IV (22:57)
[2020-05-26] VITALS: BP 118/75; PULSE 77; RESP 17; O2SAT 95
[2020-05-26] MEDS: ONDANSETRON 4 MG ODT PREPACK 1 BOTTLE MISC (00:23)
== END 2020-05-26 00:34 | disposition home or self-care (01) ==
PROVIDERS: Emergency Provider Emergency Medicine; PCP Internal Medicine
DX: K92.0 Hematemesis (principal); R10.9 Unspecified abdominal pain
CPT/HCPCS: 36415; 80053; 81003; 83690; 85025; 85610; 85730; 93005; 99284; C9113; J2405

== ENCOUNTER → 2020-06-09 09:58 | Outpatient (CLI) | payer OTHER, SELFPAY ==
[2020-06-01 11:02] VITALS: BMI 29.2
[2020-06-09 11:11] LABS: Alanine Aminotransferase 93 IU/L (<35); Albumin 4.7 g/dL (3.5-5.0); Albumin Globulin Ratio 1.6 (1.0-2.8); Alkaline Phosphatase 101 U/L (38-126); Aspartate Aminotransferase 102 IU/L (14-36); Bilirubin Total 0.5 mg/dL (0.2-1.3); Bilirubin Unconjugated 0.3 mg/dL (0.0-1.1); HEMOLYSIS < 15 (0-50); Total Protein 7.7 g/dL (6.3-8.2)
== END ==
PROVIDERS: PCP Internal Medicine; Referring Provider Internal Medicine Gastroenterology; Visit Provider Internal Medicine Gastroenterology
DX: R94.5 Abnormal results of liver function studies (principal)
CPT/HCPCS: 36415; 80076

== ENCOUNTER → 2020-08-02 11:04 | Outpatient (CLI) | payer OTHER, SELFPAY ==
[2020-06-01 11:02] VITALS: BMI 29.2
[2020-08-02 13:26] LABS: BUN Creatinine Ratio 27.4 (6-22); Blood Urea Nitrogen 20 mg/dL (7-17); Carbon Dioxide 29 mmol/L (22-32); Chloride 102 mmol/L (98-107); Estimated Glomerular Filt Rate > 60.0 mL/min (>60); Glucose 122 mg/dL (70-100); HEMOLYSIS < 15 (0-50); Potassium 4.1 mmol/L (3.4-5.1); Sodium 140 mmol/L (137-145)
[2020-08-02 13:58] LABS: TSH w/ Reflex to FT4 1.15 uIU/mL (0.47-4.68)
== END ==
PROVIDERS: PCP Internal Medicine; Referring Provider Internal Medicine; Visit Provider Internal Medicine
DX: E11.40 Type 2 diabetes mellitus with diabetic neuropathy, unspecified (principal); L65.9 Nonscarring hair loss, unspecified
CPT/HCPCS: 36415; 80048; 84443

== ENCOUNTER → 2020-08-12 09:11 | Outpatient (CLI) | payer OTHER, SELFPAY ==
[2020-06-01 11:02] VITALS: BMI 29.2
[2020-08-12] MEDS: COVID-19 VACC #1, MRNA(MOD) 100 MCG/0.5 ML VIAL IM (09:15)
== END ==
PROVIDERS: PCP Internal Medicine; Visit Provider Internal Medicine
DX: Z23 Encounter for immunization (principal)
CPT/HCPCS: 0011A; 91301

== ENCOUNTER → 2020-08-16 12:30 | Outpatient (CLI) | payer OTHER, SELFPAY ==
[2020-06-01 11:02] VITALS: BMI 29.2
--- NOTE | 2020-08-16 12:31 | DI.RAD.S_ITS ---
PROCEDURE: XR LUMBAR SPINE MIN 4V INDICATIONS: update imaging TECHNIQUE: 4 views of the lumbar spine were acquired. COMPARISON: None. FINDINGS: Bones: 5 nonrib-bearing vertebrae are present. There is moderate levoscoliosis. There is normal bony alignment. No vertebral body compression fractures. No suspicious bony lesions. There is severe degenerative disc disease and facet arthropathy at L1-L2, L2-L3, L3-L4 and L4-L5, and moderate degenerative disc disease at T12-L1 and L5-S1. Soft tissues: Overlying bowel gas pattern is normal. No suspicious soft tissue calcifications. Note is made of a catheter along the right side of lumbar spine. A large amount of stool in colon. Oblique images: No pars defects. IMPRESSION: 1. Severe degenerative disc disease and facet arthropathy in lumbar spine. 2. Scoliosis. Dictated by: Maryann Lezama M.D. on 08/16/2020 at 17:50 Approved by: Maryann Lezama M.D. on 08/16/2020 at 17:52
== END ==
PROVIDERS: PCP Internal Medicine; Referring Provider Physical Medicine & Rehabilitation; Visit Provider Physical Medicine & Rehabilitation
DX: M47.817 Spondylosis without myelopathy or radiculopathy, lumbosacral region (principal); M47.816 Spondylosis without myelopathy or radiculopathy, lumbar region; M96.1 Postlaminectomy syndrome, not elsewhere classified; M51.36 Other intervertebral disc degeneration, lumbar region; M51.35 Other intervertebral disc degeneration, thoracolumbar region; M51.37 Other intervertebral disc degeneration, lumbosacral region
CPT/HCPCS: 72110

== ENCOUNTER → 2020-08-30 09:10 | Outpatient (CLI) | payer OTHER, SELFPAY ==
[2020-06-01 11:02] VITALS: BMI 29.2
--- NOTE | 2020-08-30 09:11 | DI.MRI.S_ITS ---
PROCEDURE: MR LUMBAR SPINE WO CON INDICATIONS: right L4/5 TFESI TECHNIQUE: Noncontrast sagittal T1 spin echo and T2 fast echo, coronal T2, sagittal STIR, axial T1 and T2 fast spin echo through the lumbar spine. COMPARISON: [facility], CR, XR LUMBAR SPINE 2 OR 3 VIEWS, 09/18/2018, 16:04. [facility], MR, MR LUMBAR SPINE WO CON, 10/23/2018, 18:26. FINDINGS: Image quality: Excellent. Alignment and Curvature: There are 5 lumbar type vertebral bodies present by plain film. There is moderate leftward curvature of the lumbar spine diffusely. There is mild, grade 1 retrolisthesis of T12 on L1, L1 on L2, L2 on L3, L3 on L4, L4 on L5, and L5 on S1. Bone Marrow: Marrow is of normal overall signal. No acute vertebral body compression fractures. There is moderate reactive signal within the endplates adjacent to the L2-L3 and L3-L4 intervertebral discs. Mild reactive signal within the endplates adjacent to the T10-T11, T11-T12, T12-L1, L1-L2, L4-L5, and L5-S1 intervertebral discs. L2-L4 laminectomy has been performed. Spinal Cord: Conus medullaris terminates at the lower L1 level. Visualized cord demonstrates normal signal and size. Paraspinous Soft Tissues: No paravertebral masses. T12-L1: Moderate disc height loss and desiccation. Mild diffuse disc bulge . Mild facet and ligamentum flavum hypertrophy. Mild canal stenosis. Moderate bilateral foraminal stenosis. L1-L2: Moderate disc height loss and desiccation. Mild diffuse disc bulge with small superimposed broad-based right posterolateral and far lateral protrusion. Mild facet and ligamentum flavum hypertrophy. Mild canal stenosis. Severe right and moderate left foraminal stenosis. Right L1 nerve root compression. No change. L2-L3: Severe disc height loss and desiccation. Mild diffuse disc bulge. Mild facet hypertrophy bilaterally. Mild canal stenosis. Moderate right and mild left foraminal stenosis. No change. L3-L4: Moderate disc height loss and desiccation. Moderate diffuse disc bulge/osteophyte. Moderate bilateral facet hypertrophy. Moderate canal stenosis. Moderate bilateral foraminal stenosis. No change. L4-L5: Moderate disc height loss and desiccation. Moderate diffuse disc bulge. Moderate bilateral facet hypertrophy. Moderate canal stenosis. Moderate bilateral foraminal stenosis. No change. L5-S1: Moderate disc height loss and desiccation. Mild diffuse disc bulge/osteophyte. Mild bilateral facet hypertrophy. Mild canal stenosis. Moderate bilateral foraminal stenosis. IMPRESSION: 1. Multilevel degenerative disc and facet disease, as well as ligamentum flavum hypertrophy and epidural lipomatosis. 2. Postsurgical sequelae. 3. Multilevel canal stenoses, worst at L3-L4 and L4-L5, where there are moderate canal stenosis. 4. Multilevel foraminal stenoses, worst at L1-L2 where there is associated intraforaminal nerve root compression. Recommend correlation with clinical symptoms to ascertain relevance of this finding. Dictated by: Hudson oG M.D. on 08/30/2020 at 10:23 Approved by: Hudson Go M.D. on 08/30/2020 at 10:31
== END ==
PROVIDERS: PCP Internal Medicine; Referring Provider Physical Medicine & Rehabilitation; Visit Provider Physical Medicine & Rehabilitation
DX: M51.26 Other intervertebral disc displacement, lumbar region (principal); M51.36 Other intervertebral disc degeneration, lumbar region; M48.061 Spinal stenosis, lumbar region without neurogenic claudication; M96.1 Postlaminectomy syndrome, not elsewhere classified; E88.2 Lipomatosis, not elsewhere classified
CPT/HCPCS: 72148

== ENCOUNTER → 2020-09-09 09:06 | Outpatient (CLI) | payer OTHER, SELFPAY ==
[2020-06-01 11:02] VITALS: BMI 29.2
[2020-09-09] MEDS: COVID-19 VACC #2, MRNA(MOD) 100 MCG/0.5 ML VIAL IM (09:13)
== END ==
PROVIDERS: PCP Internal Medicine; Visit Provider Internal Medicine
DX: Z23 Encounter for immunization (principal)
CPT/HCPCS: 0012A; 91301

== ENCOUNTER 2020-10-04 18:02 | Emergency (ER) | payer OTHER, SELFPAY ==
[2020-06-01 11:02] VITALS: BMI 29.2
--- NOTE | 2020-10-04 18:04 | DI.RAD.S_ITS ---
PROCEDURE: XR KNEE RT 3V INDICATIONS: fall with knee pain TECHNIQUE: 3 views of the knee were acquired. COMPARISON: [facility], , XR KNEE RT 3V, 06/10/2019, 18:45. FINDINGS: Bones: No fractures or dislocations. No suspicious bony lesions. Severe tricompartmental knee joint degeneration. Osteopenia. Soft tissues: There is a [id number] joint effusion. No suspicious soft tissue calcifications. IMPRESSION: 1. No acute osseous abnormalities. If clinical symptoms persist or clinical suspicion for internal derangement is high, advanced imaging such as CT or MRI is suggested for further evaluation. 2. Gfily-ep-gbdgwedm knee joint effusion. 3. Severe tricompartmental knee joint degeneration. Dictated by: Maryann Lezama M.D. on 10/04/2020 at 18:48 Approved by: Maryann Lezama M.D. on 10/04/2020 at 18:50
[2020-10-04 18:05] VITALS: BP 137/79; PULSE 85; RESP 20; TEMP 36.3; O2SAT 96
[2020-10-04 19:27] VITALS: BP 146/73; PULSE 81; RESP 22; O2SAT 98
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
== END 2020-10-04 19:28 | disposition home or self-care (01) ==
PROVIDERS: Emergency Provider Emergency Medicine; PCP Internal Medicine
DX: S86.911A Strain of unspecified muscle(s) and tendon(s) at lower leg level, right leg, initial encounter (principal); S80.01XA Contusion of right knee, initial encounter; V19.9XXA Pedal cyclist (driver) (passenger) injured in unspecified traffic accident, initial encounter
CPT/HCPCS: 73562; 99282; 99283

== ENCOUNTER → 2021-02-13 11:18 | Outpatient (CLI) | payer OTHER, SELFPAY ==
[2020-06-01 11:02] VITALS: BMI 29.2
[2021-02-13 12:22] LABS: Add Manual Diff / Slide Review NO; Basophils Absolute Auto 0 /uL (0-100); Basophils Percent Auto 0.1 % (0-2); Eosinophils Absolute Auto 100 /uL (0-450); Eosinophils Percent Auto 0.8 % (2-4); Hematocrit 38.2 % (36-46); Hemoglobin 12.7 g/dL (12.0-16.0); Lymphocytes Absolute Auto 1100 /uL (1100-4500); Lymphocytes Percent Auto 15.1 % (25-40); Mean Corpuscular HGB Conc 33.2 % (30-36); Mean Corpuscular Hemoglobin 27.4 PG (26-34); Mean Corpuscular Volume 82.6 fL (80-100); Monocytes Absolute Auto 400 /uL (0-900); Neutrophils Absolute Auto 5900 /uL (1500-7000); Platelet Count 302 X10^3/uL (150-400); Red Blood Cell Count 4.63 X10^6/uL (4.0-5.2); Red Cell Distribution Width 14.6 % (11.6-14.8); White Blood Cell Count 7.5 X10^3/uL (4.5-11.0)
[2021-02-13 12:27] LABS: Hemoglobin A1C% w Est Avg Glu 6.5 % (4.0-6.0)
[2021-02-13 12:38] LABS: Alanine Aminotransferase 58 IU/L (<35); Albumin 4.8 g/dL (3.5-5.0); Albumin Globulin Ratio 1.7 (1.0-2.8); Alkaline Phosphatase 106 U/L (38-126); Aspartate Aminotransferase 79 IU/L (14-36); Bilirubin Total 0.5 mg/dL (0.2-1.3); Blood Urea Nitrogen 24 mg/dL (7-17); Calcium 10.6 mg/dL (8.4-10.2); Carbon Dioxide 24 mmol/L (22-32); Chloride 102 mmol/L (98-107); Estimated Glomerular Filt Rate > 60.0 mL/min (>60); Globulin 2.8 g/dL (1.7-4.1); Glucose 130 mg/dL (70-100); HEMOLYSIS < 15 (0-50); Potassium 4.5 mmol/L (3.4-5.1); Sodium 138 mmol/L (137-145); Total Protein 7.6 g/dL (6.3-8.2)
== END ==
PROVIDERS: PCP Internal Medicine; Referring Provider Internal Medicine; Visit Provider Internal Medicine
DX: K85.90 Acute pancreatitis without necrosis or infection, unspecified (principal); I10 Essential (primary) hypertension; E11.9 Type 2 diabetes mellitus without complications
CPT/HCPCS: 36415; 80053; 83036; 85025

== ENCOUNTER → 2021-08-15 15:03 | Outpatient (CLI) | payer OTHER, SELFPAY ==
[2020-06-01 11:02] VITALS: BMI 29.2
[2021-08-15 16:20] LABS: COVID19 -Nasal RAPID POSITIVE (Negative)
== END ==
PROVIDERS: PCP Internal Medicine; Visit Provider Student in an Organized Health Care Education/Training Program
DX: U07.1 COVID-19 (principal)
CPT/HCPCS: 87635

== ENCOUNTER 2021-09-01 23:04 | Observation (INO) | payer OTHER, SELFPAY ==
[2020-06-01 11:02] VITALS: BMI 29.2
[2021-09-01] VITALS (7 sets, daily range): BP systolic 184–211; BP diastolic 91–100; PULSE 91–97; RESP 15–22; TEMP 37.5; O2SAT 96–97; BMI 26.9
[2021-09-01] MEDS: SODIUM CHLORIDE 0.9% 1,000 ML 1000 ML IV (23:19)
[2021-09-01] MEDS: ONDANSETRON 4 MG/2 ML INJ IV (23:20)
--- NOTE | 2021-09-01 23:21 | ED_ITS ---
HPI - Nausea/Vomiting/Diarrhea General Chief complaint: Nausea/Vomiting/Diarrhea Stated complaint: VOMITTING FEVER Time Seen by Provider: 09/01/21 23:13 Source: patient Mode of arrival: Wheelchair History of Present Illness HPI Narrative: Patient is a 56-year-old female with a history of insulin-dependent diabetes and chronic pancreatitis is here for evaluation of approximately 2 days of nausea and vomiting. She is also reporting fevers and upper abdominal discomfort. No recent travel. No recent antibiotics. Patient has not tried anything for her symptoms prior to arrival. She does describe pain in her upper abdomen. Related Data Home Medications Medication Instructions Recorded Confirmed fenofibrate 160 mg tablet 160 mg PO DAILY #0 09/19/17 04/04/21 insulin aspart U-100 100 unit/mL 10 - 25 unit SQ TIDAC #0 09/19/17 04/04/21 subcutaneous solution (Novolog U-100 Insulin aspart) insulin glargine 100 unit/mL 30 unit SQ QPM #0 09/19/17 04/04/21 subcutaneous solution (Lantus U-100 Insulin) metoclopramide HCl 5 mg tablet 10 mg PO QID PRN #0 09/19/17 04/04/21 (Reglan) metoprolol succinate 100 mg 100 mg PO DAILY #0 09/19/17 04/04/21 tablet,extended release 24 hr (Toprol XL) quetiapine 400 mg tablet (Seroquel) 400 mg PO BEDTIME #0 09/19/17 04/04/21 fluoxetine 20 mg capsule 60 mg PO DAILY 10/10/18 04/04/21 omega-3 acid ethyl esters 1 gram 2 cap PO BID 04/17/19 04/04/21 capsule atorvastatin 80 mg tablet 80 mg PO DAILY 01/06/20 04/04/21 buprenorphine 2 mg-naloxone 0.5 mg 1 film SUBLINGUAL DAILY 01/06/20 04/04/21 sublingual film lisinopril 5 mg tablet 5 mg PO DAILY 01/06/20 04/04/21 metformin 500 mg tablet,extended 500 mg PO DAILY 01/06/20 04/04/21 release 24 hr valacyclovir 500 mg tablet 500 mg PO DAILY PRN 01/06/20 04/04/21 zolpidem 12.5 mg tablet,extended 12.5 mg PO BEDTIME 01/06/20 04/04/21 release,multiphase amlodipine besylate 120 mg PO DAILY 11/28/20 04/04/21 cholecalciferol (vitamin D3) 50 50 mcg PO DAILY 11/28/20 04/04/21 mcg (2,000 unit) capsule dicyclomine 20 mg tablet 20 mg PO QID PRN 11/28/20 04/04/21 insulin glargine 100 unit/mL 30 unit SUBCUT DAILY #0 ml 11/28/20 04/04/21 subcutaneous solution (Lantus U-100 Insulin) ketamine 100 mg sublingual narinder 100 mg SUBLINGUAL DAILY tab 11/28/20 04/04/21 lamotrigine 25 mg tablet 150 mg PO DAILY tab 11/28/20 04/04/21 [id number] 2 cap PO DAILY cap 11/28/20 04/04/21 36,000-114,000-180,000 unit capsule,delay rel (Creon) quetiapine 100 mg tablet (Seroquel) 100 mg PO BID PRN #0 tab 11/28/20 04/04/21 tizanidine 2 mg tablet 4 mg PO Q8H PRN tab 11/28/20 04/04/21 vitamin B complex 1 tab PO DAILY 11/28/20 04/04/21 Previous Rx's Medication Instructions Recorded tramadol 50 mg tablet 50 mg PO Q6-8H PRN #20 tab 01/05/20 lorazepam 2 mg tablet 2 mg PO TID #0 tab 01/08/20 ondansetron 4 mg disintegrating 4 mg PO Q4H PRN #20 tab 05/26/20 tablet methylphenidate HCl 10 mg tablet 10 mg PO TID #90 tab 08/17/21 Allergies Allergy/AdvReac Type Severity Reaction Status Date / Time No Known Drug Allergies Allergy Verified 08/15/21 15:15 Review of Systems Constitutional Constitutional: Reports chills, Reports fatigue, Reports fever(s) and Denies headache(s) ENT Ears, Nose, Mouth, and Throat: Denies headache(s) Cardiovascular Cardiovascular: Denies chest pain and Denies dyspnea Respiratory Respiratory: Denies dyspnea Gastrointestinal Gastrointestinal: Reports as per HPI and Reports system reviewed and no a dditional complaints, except as documented Genitourinary Genitourinary: Reports system reviewed and no additional complaints, except as documented Integumentary/Breasts Skin/Breast: Reports system reviewed and no additional complaints, except as documented Neurologic Neurologic: Reports system reviewed and no additional complaints, except as documented and Denies headache(s) Endocrine Endocrine: Reports fatigue Hematologic/Lymphatic On Anticoagulants: No Patient History Medical History Acute dehydration Acute infection of right ear Acute kidney injury Anxiety Arm pain Arthritis Bipolar 1 disorder Chronic pain syndrome Chronic pancreatitis Episode of syncope Fracture of right foot Herniated nucleus pulposus, L4-5 History of pulmonary embolism Hypercholesterolemia with hypertriglyceridemia Hypersomnia Hypertension Insulin dependent diabetes mellitus Intractable vomiting with nausea Major depressive disorder 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 Neuropathy, diabetic Nonalcoholic steatohepatitis (HERRING) Obesity (BMI 30-39.9) Obstructive sleep apnea of adult Renal insufficiency Snoring Type 2 diabetes mellitus Surgical History Gastrocnemius equinus of right lower extremity H/O hysterectomy for benign disease History of appendectomy History of cholecystectomy Lumbar post-laminectomy syndrome Right humeral fracture Family History Father COPD (chronic obstructive pulmonary disease) Mother Hypertension Sister Fibromyalgia Social History marital status: details: to Arnie household members: spouse and children lives independently: Yes caregiver/support person: No occupational status: unemployed Smoking Status: Never smoker alcohol intake: former substance use type: marijuana Smoking Status: Never smoker alcohol intake frequency: 0-2 drinks per day Substance Use Type: does not use Exam Initial Vital Signs Initial Vital Signs: Vital Signs Temperature 99.5 F 09/01/21 23:12 Pulse Rate 92 H 09/01/21 23:12 Respiratory Rate 22 09/01/21 23:12 Blood Pressure 211/100 H 09/01/21 23:12 Pulse Oximetry 97 09/01/21 23:12 Const General: cooperative and diaphoretic Limitations: mental status not altered HENMT Head: normal to inspection and normocephalic Resp Effort & Inspection: normal respiratory effort Cardio Rate: regular rate GI Inspection: non-distended Palpation: soft, No guarding and tender (Upper abdomen) Skin General: no rashes or lesions noted Neuro General: patient alert, patient awake and moves all extremities Cognition: normal cognition Speech: speech normal Extrem General: normal to inspection and capillary refill normal Psych Appearance: grossly normal and well kempt Course Orders Ordered: ED Orders 09/01/21 23:15 Complete Blood Count AUTO DIFF Stat Comprehensive Metabolic Panel Stat Ketones (Beta-Hydroxybutyrate) Stat Lactate (Lactic Acid) Stat Lipase Stat Magnesium Stat Phosphorous Stat EKG-12 Lead Stat 09/01/21 23:45 US abdomen limited Stat 09/02/21 00:25 Urine Culture Stat Urine Microscopic Stat 09/02/21 00:53 CT abdomen pelvis w con Stat 09/02/21 02:15 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) Stat 09/02/21 02:24 Education, smoking cessation ONGOING 09/02/21 02:29 Hemoglobin A1C% w Est Avg Glu Urgent 09/02/21 02:31 Consult to Physical Therapy Evaluate & Treat 09/02/21 05:00 Complete Blood Count AUTO DIFF Routine Magnesium Routine Phosphorous Routine Acetaminophen (Acetaminophen 325 Mg Tablet) 650 mg PO Q6HR PRN PRN Reason: Fever/Mild Pain (1-3) Dextrose (Dextrose 50 % In Water 25 Gm/50 Ml Syringe) 25 gm IV PRN PRN PRN Reason: Hypoglycemia Enoxaparin Sodium (Enoxaparin 40 Mg/0.4 Ml Syringe) 40 mg SUBCUT DAILY YARI Sodium Chloride (Normal Saline 0.9%) 1,000 mls @ 125 mls/hr IV CONT YARI Insulin Human Lispro (Insulin Lispro 100 Unit/Ml 3ml Vial) 0 unit SUBCUT ACHS YARI; Protocol Naloxone HCl (Naloxone 0.4 Mg/Ml Vial) 0.2 mg IV Q2MIN PRN PRN Reason: Opiate Reversal Ondansetron HCl (Ondansetron 4 Mg/2 Ml Inj) 4 mg IV Q4HR YARI Discontinued Medications Sodium Chloride (Normal Saline 0.9%) 1,000 mls @ 1,000 mls/hr IV BOLUS ONE Stop: 09/02/21 00:13 Last Admin: 09/01/21 23:19 Dose: 1,000 mls/hr Documented by: GLORIA Lorazepam (Lorazepam 2 Mg/Ml Inj) 1 mg IV NOW ONE Stop: 09/02/21 00:42 Last Admin: 09/02/21 00:46 Dose: 1 mg Documented by: GLORIA Metoclopramide HCl (Metoclopramide 10 Mg/2 Ml Inj) 10 mg IV NOW ONE Stop: 09/01/21 23:46 Last Admin: 09/01/21 23:51 Dose: 10 mg Documented by: GLORIA Ondansetron HCl (Ondansetron 4 Mg/2 Ml Inj) 4 mg IV NOW ONE Stop: 09/01/21 23:15 Last Admin: 09/01/21 23:20 Dose: 4 mg Documented by: GLORIA Vital Signs Vital signs: Vital Signs - 8 hr 09/01/21 23:12 09/01/21 23:13 09/01/21 23:14 Temperature 99.5 F Pulse Rate 92 H 92 H Respiratory Rate 22 15 Blood Pressure 211/100 H 211/100 H Pulse Oximetry 97 97 09/01/21 23:15 09/01/21 23:30 09/01/21 23:31 Temperature Pulse Rate 91 H 92 H 92 H Respiratory Rate 21 18 16 Blood Pressure 197/100 H 184/91 H Pulse Oximetry 96 97 96 09/01/21 23:46 09/02/21 00:00 09/02/21 01:27 Temperature Pulse Rate 97 H 90 90 Respiratory Rate 22 18 Blood Pressure 201/97 H 191/89 H Pulse Oximetry 97 96 09/02/21 01:30 09/02/21 01:31 Temperature Pulse Rate 88 88 Respiratory Rate 20 19 Blood Pressure 197/109 H Pulse Oximetry 98 98 MDM - Nausea/Vomiting/Diarrhea Medical Records Attestation: I reviewed the patient's medical records. Lab Data Attestation: I reviewed the patient's lab results. Result diagrams: 09/01/21 23:15 09/01/21 23:15 Labs: Lab Results 09/01/21 09/01/21 09/01/21 Range/Units 23:15 23:15 23:15 WBC 9.5 (4.5-11.0) X10^3/uL RBC 4.05 (4.0-5.2) X10^6/uL Hgb 11.2 L (12.0-16.0) g/dL Hct 33.2 L (36-46) % MCV 81.9 (80-100) fL MCH 27.6 (26-34) PG MCHC 33.7 (30-36) % RDW 14.0 (11.6-14.8) % Plt Count 233 (150-400) X10^3/uL Neut % (Auto) 92.3 H (50-75) % Lymph % (Auto) 2.1 L (25-40) % Cameron % (Auto) 5.5 (3-14) % Eos % (Auto) 0.0 L (2-4) % Baso % (Auto) 0.1 (0-2) % Neut # (Auto) 8800 H (6888-1247) /uL Lymph # (Auto) 200 L (4901-0332) /uL Cameron # (Auto) 500 (0-900) /uL Eos # (Auto) 0 (0-450) /uL Baso # (Auto) 0 (0-100) /uL Sodium 135 L (137-145) mmol/L Potassium 3.6 (3.4-5.1) mmol/L Chloride 98 (98-107) mmol/L Carbon Dioxide 27 (22-32) mmol/L BUN 16 (7-17) mg/dL Creatinine 0.67 (0.52-1.04) mg/dL Estimated GFR > 60.0 (>60) mL/min BUN/Creatinine Ratio 23.9 H (6-22) Glucose 283 H (70-100) mg/dL Lactate 3.3 H (0.7-2.1) mmol/L Calcium 10.0 (8.4-10.2) mg/dL Phosphorus 1.8 L (2.5-4.5) mg/dL Magnesium 1.5 L (1.6-2.3) mg/dL Total Bilirubin 2.5 H (0.2-1.3) mg/dL AST 425 H (14-36) IU/L ALT 202 H (<35) IU/L Alkaline Phosphatase 191 H (38-126) U/L Total Protein 7.9 (6.3-8.2) g/dL Albumin 4.3 (3.5-5.0) g/dL Globulin 3.6 (1.7-4.1) g/dL Albumin/Globulin Ratio 1.2 (1.0-2.8) Lipase 33 (23-300) U/L Urine RBC (0-5/HPF) Urine WBC (0-5/HPF) Ur Squamous Epith Cells (0-5/HPF) Urine Bacteria (None) Hyaline Casts (None) Ur Culture Indicated? Ketones 0.42 H (<0.27) mmol/L 09/02/21 09/02/21 Range/Units 00:25 01:30 WBC (4.5-11.0) X10^3/uL RBC (4.0-5.2) X10^6/uL Hgb (12.0-16.0) g/dL Hct (36-46) % MCV (80-100) fL MCH (26-34) PG MCHC (30-36) % RDW (11.6-14.8) % Plt Count (150-400) X10^3/uL Neut % (Auto) (50-75) % Lymph % (Auto) (25-40) % Cameron % (Auto) (3-14) % Eos % (Auto) (2-4) % Baso % (Auto) (0-2) % Neut # (Auto) (4097-8125) /uL Lymph # (Auto) (1464-9299) /uL Cameron # (Auto) (0-900) /uL Eos # (Auto) (0-450) /uL Baso # (Auto) (0-100) /uL Sodium (137-145) mmol/L Potassium (3.4-5.1) mmol/L Chloride (98-107) mmol/L Carbon Dioxide (22-32) mmol/L BUN (7-17) mg/dL Creatinine (0.52-1.04) mg/dL Estimated GFR (>60) mL/min BUN/Creatinine Ratio (6-22) Glucose (70-100) mg/dL Lactate 1.7 (0.7-2.1) mmol/L Calcium (8.4-10.2) mg/dL Phosphorus (2.5-4.5) mg/dL Magnesium (1.6-2.3) mg/dL Total Bilirubin (0.2-1.3) mg/dL AST (14-36) IU/L ALT (<35) IU/L Alkaline Phosphatase (38-126) U/L Total Protein (6.3-8.2) g/dL Albumin (3.5-5.0) g/dL Globulin (1.7-4.1) g/dL Albumin/Globulin Ratio (1.0-2.8) Lipase (23-300) U/L Urine RBC 1-5/hpf (0-5/HPF) Urine WBC None seen (0-5/HPF) Ur Squamous Epith Cells 1-5 /hpf (0-5/HPF) Urine Bacteria Few (2-10) H (None) Hyaline Casts 0-1/lpf (None) Ur Culture Indicated? Culture not indicate Ketones (<0.27) mmol/L Point of Care Testing Glucose POC 259 Urine Dip Bedside Urine Glucose 1000 mg/dl Bedside Urine Bilirubin - Negative Bedside Urine Ketone +/- 5 Urine Specific [place] 1.025 Bedside Urine Occult Blood ++ Bedside Urine pH 6.0 Bedside Urine Protein ++ 100 Bedside Urine Urobilinogen 1+ 2mg Bedside Urine Nitrite - Negative Bedside Urine Leukocytes - Negative Esterase Imaging Data US - abdomen: Radiologist's Impression: [address] [address] Ultrasound Report Signed Patient: Sheela Brown MR#: [id number] : 1965 Acct:[id number] Age/Sex: 56 / F Date of Service: 09/01/21 Loc: ED Accession Number: [id number] ?? Procedure: US abdomen limited Ordering Provider: Ben Faith D.O. PROCEDURE: US ABDOMEN LIMITED ? INDICATIONS:? RUQ PAIN ? TECHNIQUE:? Real-time focused scanning was performed of the abdomen, with image documentation.? ? COMPARISON:? [facility], , US ABDOMEN LIMITED, 09/09/2019, 17:05. ? FINDINGS:? The liver has no mass or intrahepatic biliary ductal dilatation.? The patient is status post cholecystectomy.? The common bile duct measures 7.5 mm, within no rmal limits given prior cholecystectomy. ? IMPRESSION:? No acute ultrasound abnormality of the right upper quadrant. ? ? Dictated by: Cody Desai M.D. on 09/02/2021 at 0:46 ? ? Approved by: Cody Desai M.D. on 09/02/2021 at 0:47 CT scan - abdomen/pelvis: Radiologist's Impression: [address] [address] [address] Scan Report Signed Patient: Sheela Brown MR#: [id number] : 1965 Acct:[id number] Age/Sex: 56 / F Date of Service: 09/02/21 Loc: ED Accession Number: [id number] ?? Procedure: CT abdomen pelvis w con Ordering Provider: Ben Faith D.O. PROCEDURE:? CT ABDOMEN PELVIS W CON ? INDICATIONS:? Upper abdominal pain with vomiting ? TECHNIQUE:? After the administration of intravenous contrast, axial sections acquired from the lung bases to the pubic symphysis.? Coronal and sagittal reformats were performed.? For radiation dose reduction, the following was used:? automated exposure control, adjustment of mA and/or kV according to patient size.? ? COMPARISON:? [facility], CT, CT ABDOMEN PELVIS W CON, 01/05/2020, 15:22. ? FINDINGS:? Image quality:? Excellent.? ? Lung bases:? Unremarkable. Heart:? No significant findings. ? ABDOMEN: Liver:? No mass.? The bile ducts are mildly dilated, unchanged compared to the prior CT on 01/05/2020. Gallbladder:? Status post cholecystectomy Pancreas:? Calcifications in the pancreatic head and body consistent with chronic pancreatitis are unchanged.? No pancreatic mass identified.? Previously described ill-defined pancreatic head hypodensity is not currently visualized.? 2 catheters within the pancreatic duct within the pancreatic head are new compared to the prior CT. Spleen:? Unremarkable.? ? Adrenal Glands:? Unremarkable.? ? Kidneys and Ureters:? Unremarkable.? ? ? Stomach and Bowel:? The distal esophagus, stomach, and small bowel are normal.? There is increased stool in the right colon and cecum. Peritoneum:? No abnormal intraperitoneal fluid.? No free air.? ? Ventral Wall: ? No hernias.? Abdominal Nodes:? No retroperitoneal or mesenteric adenopathy by size criteria.? Vessels:? Aorta and inferior vena cava are normal in size.? ? PELVIS: Pelvic Organs:? Unremarkable.? ? Bladder:? Unremarkable.? ? Pelvic Nodes: No enlarged lymph nodes.? Miscellaneous: No hernias are seen. ? ? ? Bones:? Degenerative changes with no focal abnormality. ? ? IMPRESSION: 1. No acute abdominal or pelvic abnormality. 2. Pancreatic calcifications consistent with a history of chronic pancreatitis.? 2 drainage catheters are seen within pancreatic head body ducts. 3. Status post cholecystectomy and mild biliary ductal dilatation.? 4. Constipation. ? ? Dictated by: Cody Desai M.D. on 09/02/2021 at 1:43 ? ? Approved by: Cody Desai M.D. on 09/02/2021 at 1:51?? ECG Data Attestation: I personally reviewed and interpreted this ECG as follows: Interpretation: Sinus rhythm Ventricular rate 91 Normal axis Normal QRS Normal QTC No ST T wave changes MDM Narrative Medical decision making narrative: 2 days of symptoms, does not have a leukocytosis. Initially had elevated lactate but this improved with fluids. Does have an elevation in her bilirubin and LFTs and her lipase is unremarkable. No fevers here. Right upper quadrant ultrasound shows no acute pathology. CT scan abdomen pelvis does show a dilation of the bile duct but it is unchanged from prior CT scans. Her pancreatic stents are in place. Patient's lipase today is unremarkable. No signs of a definitive infection. No indication for antibiotics. Patient given multiple different antiemetic medications without much improvement of her symptoms. She is unable to tolerate oral intake. Patient not in DKA does have hyperglycemia and ketones. No definitive diagnosis of gastroparesis 4 today. Patient is unable to tolerate oral intake and therefore unable to take any of her medications. Given her diabetes history concerned that this may lead to worsening conditions to include DKA. Patient requires admission the hospital for symptom control. Discuss case with MILADY Ahuamda the night hospitalist who will admit further evaluation and treatment. Did discuss this with the patient as well. She expressed understanding and agreement. Discharge Plan Departure Patient Disposition: Admitted as Observation Clinical Impression: Nausea and vomiting, Abdominal pain
--- NOTE | 2021-09-01 23:25 | PC.NURSE ---
pt states she was dx with COVID 3 wks ago but got better now for the last 2 days she has had n/v with fever, pt has been able to tolerate only some liquid, pt is pale and diaphoretic, states fever was 103 at home
[2021-09-01 23:28] LABS: Add Manual Diff / Slide Review NO; Basophils Absolute Auto 0 /uL (0-100); Basophils Percent Auto 0.1 % (0-2); Eosinophils Absolute Auto 0 /uL (0-450); Hematocrit 33.2 % (36-46); Hemoglobin 11.2 g/dL (12.0-16.0); Lymphocytes Absolute Auto 200 /uL (1100-4500); Lymphocytes Percent Auto 2.1 % (25-40); Mean Corpuscular HGB Conc 33.7 % (30-36); Mean Corpuscular Hemoglobin 27.6 PG (26-34); Mean Corpuscular Volume 81.9 fL (80-100); Monocytes Absolute Auto 500 /uL (0-900); Monocytes Percent Auto 5.5 % (3-14); Neutrophils Absolute Auto 8800 /uL (1500-7000); Neutrophils Percent Auto 92.3 % (50-75); Platelet Count 233 X10^3/uL (150-400); Red Blood Cell Count 4.05 X10^6/uL (4.0-5.2); White Blood Cell Count 9.5 X10^3/uL (4.5-11.0)
[2021-09-01 23:33] LABS: Lactate (Lactic Acid) 3.3 mmol/L (0.7-2.1)
[2021-09-01 23:35] LABS: Alanine Aminotransferase 202 IU/L (<35); Albumin 4.3 g/dL (3.5-5.0); Albumin Globulin Ratio 1.2 (1.0-2.8); Alkaline Phosphatase 191 U/L (38-126); Aspartate Aminotransferase 425 IU/L (14-36); BUN Creatinine Ratio 23.9 (6-22); Bilirubin Total 2.5 mg/dL (0.2-1.3); Blood Urea Nitrogen 16 mg/dL (7-17); Carbon Dioxide 27 mmol/L (22-32); Chloride 98 mmol/L (98-107); Estimated Glomerular Filt Rate > 60.0 mL/min (>60); Globulin 3.6 g/dL (1.7-4.1); Glucose 283 mg/dL (70-100); HEMOLYSIS < 15 (0-50); Lipase 33 U/L (23-300); Magnesium 1.5 mg/dL (1.6-2.3); Phosphorous 1.8 mg/dL (2.5-4.5); Potassium 3.6 mmol/L (3.4-5.1); Sodium 135 mmol/L (137-145); Total Protein 7.9 g/dL (6.3-8.2)
[2021-09-01 23:37] LABS: Ketones (Beta-Hydroxybutyrate) 0.42 mmol/L (<0.27)
--- NOTE | 2021-09-01 23:45 | DI.US.S_ITS ---
PROCEDURE: US ABDOMEN LIMITED INDICATIONS: RUQ PAIN TECHNIQUE: Real-time focused scanning was performed of the abdomen, with image documentation. COMPARISON: [facility], , US ABDOMEN LIMITED, 09/09/2019, 17:05. FINDINGS: The liver has no mass or intrahepatic biliary ductal dilatation. The patient is status post cholecystectomy. The common bile duct measures 7.5 mm, within normal limits given prior cholecystectomy. IMPRESSION: No acute ultrasound abnormality of the right upper quadrant. Dictated by: Cody Desai M.D. on 09/02/2021 at 0:46 Approved by: Cody Desai M.D. on 09/02/2021 at 0:47
[2021-09-01] MEDS: METOCLOPRAMIDE 10 MG/2 ML INJ IV (23:51)
[2021-09-02] VITALS (17 sets, daily range): BP systolic 143–197; BP diastolic 82–131; PULSE 77–96; RESP 16–20; TEMP 35.7–37.4; O2SAT 93–98; BMI 26.9
[2021-09-02] MEDS: LORazepam 2 MG/ML INJ 1 MG IV (00:46)
--- NOTE | 2021-09-02 00:53 | DI.CT.S_ITS ---
PROCEDURE: CT ABDOMEN PELVIS W CON INDICATIONS: Upper abdominal pain with vomiting TECHNIQUE: After the administration of intravenous contrast, axial sections acquired from the lung bases to the pubic symphysis. Coronal and sagittal reformats were performed. For radiation dose reduction, the following was used: automated exposure control, adjustment of mA and/or kV according to patient size. COMPARISON: [facility], CT, CT ABDOMEN PELVIS W CON, 01/05/2020, 15:22. FINDINGS: Image quality: Excellent. Lung bases: Unremarkable. Heart: No significant findings. ABDOMEN: Liver: No mass. The bile ducts are mildly dilated, unchanged compared to the prior CT on 01/05/2020. Gallbladder: Status post cholecystectomy Pancreas: Calcifications in the pancreatic head and body consistent with chronic pancreatitis are unchanged. No pancreatic mass identified. Previously described ill-defined pancreatic head hypodensity is not currently visualized. 2 catheters within the pancreatic duct within the pancreatic head are new compared to the prior CT. Spleen: Unremarkable. Adrenal Glands: Unremarkable. Kidneys and Ureters: Unremarkable. Stomach and Bowel: The distal esophagus, stomach, and small bowel are normal. There is increased stool in the right colon and cecum. Peritoneum: No abnormal intraperitoneal fluid. No free air. Ventral Wall: No hernias. Abdominal Nodes: No retroperitoneal or mesenteric adenopathy by size criteria. Vessels: Aorta and inferior vena cava are normal in size. PELVIS: Pelvic Organs: Unremarkable. Bladder: Unremarkable. Pelvic Nodes: No enlarged lymph nodes. Miscellaneous: No hernias are seen. Bones: Degenerative changes with no focal abnormality. IMPRESSION: 1. No acute abdominal or pelvic abnormality. 2. Pancreatic calcifications consistent with a history of chronic pancreatitis. 2 drainage catheters are seen within pancreatic head body ducts. 3. Status post cholecystectomy and mild biliary ductal dilatation. 4. Constipation. Dictated by: Cody Desai M.D. on 09/02/2021 at 1:43 Approved by: Cody Desai M.D. on 09/02/2021 at 1:51
[2021-09-02 00:58] LABS: RBC Urine 1-5/HPF (0-5/HPF); WBC Urine None Seen (0-5/HPF)
[2021-09-02 00:59] LABS: Bacteria Urine Few (2-10); Hyaline Casts Urine 0-1/LPF; Squamous Epithelial Cell Urine 1-5 /HPF (0-5/HPF)
[2021-09-02 01:20] LABS: Reflexed Lactate in 2 Hours Y
[2021-09-02 01:46] LABS: Lactate 2HR (Lactic Acid Rflx) 1.7 mmol/L (0.7-2.1)
--- NOTE | 2021-09-02 02:01 | PC.NURSE ---
pt having frequent soft formed stools
--- NOTE | 2021-09-02 02:45 | PM.HP.1 ---
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 Patient reports increased upper right abdominal pain, with nausea, vomiting, and diarrhea x4 days. Patient denies chest pain, shortness of breath, urinary symptoms, palpitations, hematuria, hematemesis, melena, recent illness, injury, or trauma. Patient's vitals upon admit patient is febrile temp 99.5?, hypertensive 197/109, HR 88, RR 19, O2 saturation 98% on room air. Patient has no white count but does have a left shift neutrophils 8,800, HGB 11.2, HCT 33.2, sodium 135, glucose 283, magnesium 1.5, bilirubin 2.5, AST 425, ALT 202, alk-phos 191, phosphorus 1.8, patient is positive for ketones 0.42, urinalysis was negative no culture. Abdominal pelvis CT demonstrated no acute abdominal or pelvic abnormalities. Abdominal ultrasound demonstrated no acute abdominal abnormalities. Patient tested positive for Covid approximately 08/12/2021, she also tested positive Patient not in DKA, admitted for intractable nausea and vomiting. 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 Neuropathy, diabetic Nonalcoholic steatohepatitis (HERRING) Obesity (BMI 30-39.9) Obstructive sleep apnea of adult Opiate dependence, continuous Renal insufficiency Snoring Type 2 diabetes mellitus Surgical History Gastrocnemius equinus of right lower extremity H/O hysterectomy for benign disease History of appendectomy History of cholecystectomy Lumbar post-laminectomy syndrome Right humeral fracture Family & Social History Family History Father COPD (chronic obstructive pulmonary disease) Mother Hypertension Sister Fibromyalgia Social History: household members spouse,children lives independently Yes caregiver/support person No Safety & Behavioral: Feels Safe in Current Yes Environment Been Physically Hurt or No Threatened By a Person Tobacco & Substance use: Smoking Status Never smoker alcohol intake former alcohol intake frequency 0-2 drinks per day Substance Use Type does not use Meds Home Medications and Allergies Home Medications Medication Instructions Recorded Confirmed Type fenofibrate 160 mg tablet 160 mg PO DAILY #0 09/19/17 09/02/21 History insulin aspart U-100 100 unit/mL 10 - 25 unit SQ TIDAC #0 09/19/17 09/02/21 History subcutaneous solution (Novolog U-100 Insulin aspart) insulin glargine 100 unit/mL 30 unit SQ QPM #0 09/19/17 09/02/21 History subcutaneous solution (Lantus U-100 Insulin) metoclopramide HCl 5 mg tablet 10 mg PO QID PRN #0 09/19/17 09/02/21 History (Reglan) metoprolol succinate 100 mg 100 mg PO DAILY #0 09/19/17 09/02/21 History tablet,extended release 24 hr (Toprol XL) quetiapine 400 mg tablet (Seroquel) 400 mg PO BEDTIME #0 09/19/17 09/02/21 History fluoxetine 20 mg capsule 60 mg PO DAILY 10/10/18 09/02/21 History omega-3 acid ethyl esters 1 gram 2 cap PO BID 04/17/19 09/02/21 History capsule tramadol 50 mg tablet 50 mg PO Q6-8H PRN #20 tab 01/05/20 09/02/21 Rx atorvastatin 80 mg tablet 80 mg PO DAILY 01/06/20 09/02/21 History buprenorphine 2 mg-naloxone 0.5 mg 1 film SUBLINGUAL DAILY 01/06/20 09/02/21 History sublingual film lisinopril 5 mg tablet 5 mg PO DAILY 01/06/20 09/02/21 History metformin 500 mg tablet,extended 500 mg PO DAILY 01/06/20 09/02/21 History release 24 hr valacyclovir 500 mg tablet 500 mg PO DAILY PRN 01/06/20 09/02/21 History zolpidem 12.5 mg tablet,extended 12.5 mg PO BEDTIME 01/06/20 09/02/21 History release,multiphase lorazepam 2 mg tablet 2 mg PO TID #0 tab 01/08/20 09/02/21 Rx ondansetron 4 mg disintegrating 4 mg PO Q4H PRN #20 tab 05/26/20 09/02/21 Rx tablet amlodipine besylate 120 mg PO DAILY 11/28/20 09/02/21 History cholecalciferol (vitamin D3) 50 50 mcg PO DAILY 11/28/20 09/02/21 History mcg (2,000 unit) capsule dicyclomine 20 mg tablet 20 mg PO QID PRN 11/28/20 09/02/21 History insulin glargine 100 unit/mL 30 unit SUBCUT DAILY #0 ml 11/28/20 09/02/21 History subcutaneous solution (Lantus U-100 Insulin) ketamine 100 mg sublingual narinder 100 mg SUBLINGUAL DAILY tab 11/28/20 09/02/21 History lamotrigine 25 mg tablet 150 mg PO DAILY tab 11/28/20 09/02/21 History eapkwz-iowgqlab-uaehmci 2 cap PO DAILY cap 11/28/20 09/02/21 History 36,000-114,000-180,000 unit capsule,delay rel (Creon) quetiapine 100 mg tablet (Seroquel) 100 mg PO BID PRN #0 tab 11/28/20 09/02/21 History tizanidine 2 mg tablet 4 mg PO Q8H PRN tab 11/28/20 09/02/21 History vitamin B complex 1 tab PO DAILY 11/28/20 09/02/21 History methylphenidate HCl 10 mg tablet 10 mg PO TID #90 tab 08/17/21 09/02/21 Rx Allergies Allergy/AdvReac Type Severity Reaction Status Date / Time No Known Drug Allergies Allergy Verified 08/15/21 15:15 Review of Systems Review of Systems Narrative: All 12 point systems reviewed with the patient and are negative except otherwise documented. Exam Vital Signs (past 8 hours): - 09/01/21 23:12 09/01/21 23:13 09/01/21 23:14 Temperature 99.5 F Pulse Rate 92 H 92 H Respiratory Rate 22 15 Blood Pressure 211/100 H 211/100 H Pulse Oximetry 97 97 09/01/21 23:15 09/01/21 23:30 09/01/21 23:31 Temperature Pulse Rate 91 H 92 H 92 H Respiratory Rate 21 18 16 Blood Pressure 197/100 H 184/91 H Pulse Oximetry 96 97 96 09/01/21 23:46 09/02/21 00:00 09/02/21 01:27 Temperature Pulse Rate 97 H 90 90 Respiratory Rate 22 18 Blood Pressure 201/97 H 191/89 H Pulse Oximetry 97 96 09/02/21 01:30 09/02/21 01:31 Temperature Pulse Rate 88 88 Respiratory Rate 20 19 Blood Pressure 197/109 H Pulse Oximetry 98 98 Oxygen Delivery Method Room Air Narrative Exam Narrative: General:? Middle-aged female lying in bed and in no acute distress, well-developed, well-nourished, appropriately interactive. HEENT: Normocephalic, atraumatic. External ears without defect. Pupils equal, round, and reactive to light.? Anicteric sclerae, moist conjunctivae, and no lid lag.? Oropharynx free of erythema and cobble stoning with moist mucosa. Neck: Supple with full range of motion. No jugular venous distension. No lymphadenopathy or thyromegaly. Cardiovascular: Regular rhythm, tachycardic, without murmurs, rubs, or gallops appreciated. Pulmonary: Clear to auscultation bilaterally without crackles, wheezes, or rhonchi.? Normal respiratory effort with no use of accessory muscles. Abdomen:? Extremities: No clubbing, cyanosis, or edema. Skin: Normal temperature, turgor, and texture; no rash, ulcers, or subcutaneous nodules appreciated. Neurological: Cranial nerves grossly intact. Psychiatric:? Normal mood and flat affect. Alert and oriented to person, place, and time. Objective Labs Result Diagrams: 09/01/21 23:15 09/01/21 23:15 Labs: Laboratory Results - last 24 hr 09/01/21 09/01/21 09/01/21 23:15 23:15 23:15 WBC 9.5 RBC 4.05 Hgb 11.2 L Hct 33.2 L MCV 81.9 MCH 27.6 MCHC 33.7 RDW 14.0 Plt Count 233 Neut % (Auto) 92.3 H Lymph % (Auto) 2.1 L Ritchie % (Auto) 5.5 Eos % (Auto) 0.0 L Baso % (Auto) 0.1 Neut # (Auto) 8800 H Lymph # (Auto) 200 L Ritchie # (Auto) 500 Eos # (Auto) 0 Baso # (Auto) 0 Sodium 135 L Potassium 3.6 Chloride 98 Carbon Dioxide 27 BUN 16 Creatinine 0.67 Estimated GFR > 60.0 BUN/Creatinine Ratio 23.9 H Glucose 283 H Lactate 3.3 H Calcium 10.0 Phosphorus 1.8 L Magnesium 1.5 L Total Bilirubin 2.5 H AST 425 H ALT 202 H Alkaline Phosphatase 191 H Total Protein 7.9 Albumin 4.3 Globulin 3.6 Albumin/Globulin Ratio 1.2 Lipase 33 Urine RBC Urine WBC Ur Squamous Epith Cells Urine Bacteria Hyaline Casts Ur Culture Indicated? Ketones 0.42 H 09/02/21 09/02/21 00:25 01:30 WBC RBC Hgb Hct MCV MCH MCHC RDW Plt Count Neut % (Auto) Lymph % (Auto) Ritchie % (Auto) Eos % (Auto) Baso % (Auto) Neut # (Auto) Lymph # (Auto) Ritchie # (Auto) Eos # (Auto) Baso # (Auto) Sodium Potassium Chloride Carbon Dioxide BUN Creatinine Estimated GFR BUN/Creatinine Ratio Glucose Lactate 1.7 Calcium Phosphorus Magnesium Total Bilirubin AST ALT Alkaline Phosphatase Total Protein Albumin Globulin Albumin/Globulin Ratio Lipase Urine RBC 1-5/hpf Urine WBC None seen Ur Squamous Epith Cells 1-5 /hpf Urine Bacteria Few (2-10) H Hyaline Casts 0-1/lpf Ur Culture Indicated? 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 1. Intractable nausea, vomiting, acute, present on admission -Possibly due to Covid infection or gastroporesis r/t IDDM -Continue IV fluids NS@125 -anti-emetics: Reglan & Zofran -Holding all oral medications while vomiting continues -Blood culture, stool culture, Hpylori, CDiff ordered -Immodium 4mg Now, then 1 2mg tab after loose stools-Max 16mg Q24hrs -NPO -patient may progress to low carb diet as tolerated, as vomiting stops. -Glucose checks Q6hr while NPO- once eating change to ACHS 2. Covid-19 infection, acute, present on admission -First Covid Positive: approximately 08/11/2020, COVID Positive Today. -intractable nausea vomiting and diarrhea possibly due to COVID infection. -patient admitted on isolation protocol. 3. Chronic pain, chronic, with opiate and Suboxone dependence, chronic, present on admission. -Patient also reports she is on ketamine 100 mg SL, tizanidine, tramadol, Suboxone -Holding oral meds during acute episode, continue Ketamine SL -I recommend verifying patient's medication list with her primary Dr. Tomlinson. If the patients medications are as reported I find the poly-pharmacy concerning, and likely contributing to the patients acute illness. 4. Insulin dependent Diabetes type 2, with neuropathy, with hyperglycemia, acute on chronic, present on admission. -A1C ordered -Admitted under diabetic protocol -Monitor for DKA -Patient has complication of neuropathy of feet and fingertips. -Glucose check Q6hrs while NPO, once eating (diet advancing) ACHS -med dose correctional scale insulin, once able to take in PO intake consistently will restart Novolog, Lantus. -I recommend that the patient stop metformin, as she is on basal & meal insulin. 5. Essential Hypertension, in the setting hypertensive urgency, acute on chronic, present on admission. -B/P elevated 197/109 on admission likely related to pain do to nausea and vomiting -Holding oral amlodipine and metoprolol during acute episode. Held lisinopril to avoid kidney injury with N/V. -Ordered labetolol 10 mg IV every 4 hours as needed for SBP > 180 or DBP>100 or HR >110 mmHg sustained for 30 minutes. 6. Hyperlipidemia, chronic, present on admission. -Held atorvastatin and fenofibrate during acute episode. 7. HERRING with tranaminiitis and probable early cirrhosis, acute on chronic, present on admission -Patient with increasingly elevated transaminases on admission with: Total bilirubin 2.5, AST 425, ALT 202 and alkaline phosphatase 191. LFTs increased from last hospitalization in 2019. -Holding Creon during acute episode. -Recommend outpatient referral to hepatology for further monitoring and treament on discharge. 9. Bipolar 1 disorder, with major depressive disorder, Anxiety, resulting in benzodiazepine dependence, chronic, present on admission. Stable. -Patient is on multiple psychotropic medications for bipolar 1, depression and anxiety. -Holding oral meds during acute episode: fluoxetine, quetiapine methylphenidate, lorazepam -Dependence appears to be quite severe 10. Overweight as evidence by BMI of 27.1, acute on chronic, present on admission -dietary consult held until acute illness resolved. 11. Hypersomnia, chronic, present on admission -Holding ambien and concerta during acute episode Code Status: Full Code Surrogate decision maker: Spouse DVT/VTE prophylaxis:? SCDs and Lovenox 40mg COVID PCR: Positive 08/12/2021 & Today on Admit Disposition: Patient admitted for observation expected length of stay less than 2 midnights I have utilized all available immediate resources to obtain, update, or review the patient's current medications. I confirmed that the patient's advanced care plan is present, Code status is documented and/or surrogate decision maker is listed in the patient's medical record. Time Spent With Patient Critical Care time: I spent a total of [] minutes of critical care time on this patient's care today; this time is exclusive of procedural time.
[2021-09-02 03:11] LABS: COVID19 - ADMIT (NP swab/PCR) POSITIVE (Negative)
[2021-09-02 03:12] LABS: Hemoglobin A1C% w Est Avg Glu 5.9 % (4.0-6.0)
[2021-09-02] MEDS: LABETALOL 20 MG/4 ML SYRINGE 5 MG IV (04:57)
[2021-09-02] MEDS: METOCLOPRAMIDE 10 MG/2 ML INJ IV (04:57)
[2021-09-02] MEDS: SODIUM CHLORIDE 0.9% 1,000 ML 125 ML IV ×2 (05:02→12:09)
[2021-09-02] MEDS: LOPERAMIDE 2 MG CAPSULE 4 MG PO (05:59)
[2021-09-02] MEDS: ACETAMINOPHEN 325 MG TABLET 650 MG PO (05:59)
[2021-09-02 06:42] LABS: Add Manual Diff / Slide Review NO; Basophils Absolute Auto 0 /uL (0-100); Basophils Percent Auto 0.1 % (0-2); Eosinophils Absolute Auto 0 /uL (0-450); Hematocrit 32.5 % (36-46); Lymphocytes Absolute Auto 200 /uL (1100-4500); Lymphocytes Percent Auto 2.5 % (25-40); Mean Corpuscular HGB Conc 33.8 % (30-36); Mean Corpuscular Hemoglobin 27.7 PG (26-34); Monocytes Absolute Auto 300 /uL (0-900); Monocytes Percent Auto 3.2 % (3-14); Neutrophils Absolute Auto 8800 /uL (1500-7000); Neutrophils Percent Auto 94.2 % (50-75); Platelet Count 235 X10^3/uL (150-400); Red Blood Cell Count 3.97 X10^6/uL (4.0-5.2); Red Cell Distribution Width 14.2 % (11.6-14.8); White Blood Cell Count 9.4 X10^3/uL (4.5-11.0)
[2021-09-02 06:45] LABS: Clostridium Difficile Tox PCR Negative for C. diff (Negative)
[2021-09-02 06:49] LABS: Magnesium 1.6 mg/dL (1.6-2.3); Phosphorous 2.1 mg/dL (2.5-4.5)
[2021-09-02] MEDS: INSULIN LISPRO 100 UNIT/ML 3ML VIAL SUBCUT ×4 (08:04→21:12)
[2021-09-02] MEDS: ENOXAPARIN 40 MG/0.4 ML SYRINGE SUBCUT (09:54)
[2021-09-02] MEDS: ONDANSETRON 4 MG/2 ML INJ IV ×3 (09:54→20:40)
--- NOTE | 2021-09-02 11:45 | PC.NURSE ---
Addendum entered by Derrick Ross R.N. 09/02/21 18:25: Meds sorted and more in line with Pt's home routine. Pt a bit more animated. Held ritalin Dr. Victoria aware as is who says she really takes teresa as needed and dependent on activities in the evening. Addendum entered by Derrick Ross R.N. 09/02/21 16:01: Notified by Rolando and Coordinator Duyen that Pt had injected herself with an unknown substance. When asked what it was Pt could not tell me. Discussed danger of doing this kind of thing, Pt said she understood. other med brought by was sent to pharmacy for verification. Original Note: Pt alert and responsive. Complains of nausea. has had zofran IV to some good effect. Trying to maintain a quiet atmosphere in the room as Pt complains of not having been able to sleep the last couple days. Pt up Independently in room. pain appears to have settled. Pt hasn't c/o N/V/D so far this shift. Continues to try and get some sleep. B.S. 282 and 242 coverage given.
--- NOTE | 2021-09-02 13:16 | PT-IP ANOTE ---
PT gary received. Talked with [facility] and stated that pt is independent with mobility in her room without use of AD and that pt just had HTN. Talked with Dr. Victoria and stated that pt does not need PT and will d/c PT order.
--- NOTE | 2021-09-02 13:39 | CM.DANOTE ---
Patient is a 56 yo female who was admitted on 09/02/21 for Vomiting and Fever. Pt has [employer] for insurance and her PCP is Dr. Neftaly Tomlinson. EMR was reviewed. Per MD, pt with hx of diabetes, hypertension, bipolar do, depression, anxiety, chronic pain and prescribed Suboxone and prescribed Ketamine by Psychiatrist. Pt admitted for intractable n/v/d and pt is COVID+ and unclear if symptoms are COVID related or gastroparesis and/or polypharmacy interactions. Per RN, pt currently feeling quite ill and unable to keep down any PO and not yet appropriate for assessment discussion which would have to be by room phone due to pt's COVID precautions. Pt is fully COVID vaccinated. SW called pt's spouse and explained role and he confirms they live at home in [place] and pt is not working and he works from home for the past few years. Pt is independent with ADL's and mobility but does have a complex medical/mental health hx but spouse denies any hx of HH or SNF. Spouse also contracted COVID 19 about 3 weeks ago and now states he feels mostly recovered and is available and able to assist pt at d/c but states she needs to be able to ambulate without much physical assist to safely d/c home and pt has been below baseline with weakness the past few days. SW discussed HH services and frequency and spouse would be agreeable if needed but states if pt can ambulate with min assist then he can help with meals and shopping and chores and all of the other things. Plan: SW to follow closely for pt's improvement to be able to tolerate diet and confirm she can safely ambulate and r/o HH at d/c. MIGDALIA Umanzor Discharge Planning/Care Management CM Discharge Assessment Start: 09/02/21 13:36 Freq: Status: Active Protocol: Document 09/02/21 13:36 BF (Rec: 09/02/21 13:38 BF [id number]) Discharge Planning Assessment Assigned Briar Cutter MIGDALIA Purvis DPOA/Assigned Designee Name spouse Arnie Contact Information [phone] Advance Directives? No Advance Directives on File No History Provided By Patient,Significant Other, Medical Record Has Patient been admitted in last 30 No days? Prior Living Arrangements House Household Members spouse Type of transporation used prior to Drives own vehicle admit Independent with ADL's Yes Is patient alert and oriented? Yes Needs Assistance With Home Chores / Shopping Caregiver for Another No Patient/Family Preference Home with Home Health Comment r/o HH at d/c Barriers to Discharge No Comment Met w/pt today, explained SW/ DCP role. Pt explains she lives at home w/family and her is extremely supportive. Discharge Plan Home with Home Health Transportation Arrangement Family Referrals Initiated None needed Additional Comment r/o HH closer to d/c Review Status In Process Please Provide Date Initial DC 09/02/21 Assessment Was Performed Next Review Type Continued Stay Review
[2021-09-02 15:11] LABS: Alanine Aminotransferase 181 IU/L (<35); Albumin 4.2 g/dL (3.5-5.0); Albumin Globulin Ratio 1.4 (1.0-2.8); Alkaline Phosphatase 176 U/L (38-126); Aspartate Aminotransferase 320 IU/L (14-36); BUN Creatinine Ratio 23.6 (6-22); Bilirubin Conjugated 0.8 md/dL (0.0-0.3); Bilirubin Total 2.4 mg/dL (0.2-1.3); Bilirubin Unconjugated 0.6 mg/dL (0.0-1.1); Blood Urea Nitrogen 13 mg/dL (7-17); Calcium 9.5 mg/dL (8.4-10.2); Carbon Dioxide 26 mmol/L (22-32); Chloride 99 mmol/L (98-107); Estimated Glomerular Filt Rate > 60.0 mL/min (>60); Globulin 3.1 g/dL (1.7-4.1); Glucose 271 mg/dL (70-100); HEMOLYSIS 17 (0-50); Sodium 137 mmol/L (137-145); Total Protein 7.3 g/dL (6.3-8.2)
[2021-09-02] MEDS: BUPRENORPHINE NALOXONE 1 EACH SL (16:47)
[2021-09-02 17:41] LABS: Magnesium 1.4 mg/dL (1.6-2.3)
[2021-09-02 17:48] LABS: Phosphorous 0.9 mg/dL (2.5-4.5)
[2021-09-02] MEDS: MAGNESIUM CHLORIDE 64 MG TABLET 128 MG PO (18:09)
[2021-09-02] MEDS: SODIUM,POTASSIUM PHOSPHATES PACKET 2 EACH PO (18:10)
[2021-09-02] MEDS: Lipase-Protease-Amylase [Creon] 36,000-114,000- 180,000 unit cap 2 EACH PO (18:11)
[2021-09-02] MEDS: KETAMINE PR (20:40)
[2021-09-02] MEDS: TROCHE PR (20:40)
[2021-09-02] MEDS: LORazepam 2 MG/ML INJ 0.5 MG IV (20:43)
[2021-09-02 23:36] LABS: Acinetobacter baumannii Not Detected (Not Detect); Enterobacteriaceae species Detected (Not Detect); Enterococcus species Not Detected (Not Detect); Listeria monocytogenes Not Detected (Not Detect); Staphylococcus species Not Detected (Not Detect); Streptococcus agalactiae (Gr B Not Detected (Not Detect); Streptococcus pneumonia Not Detected (Not Detect); Streptococcus pyogenes (Gr A) Not Detected (Not Detect); Streptococcus species Not Detected (Not Detect)
[2021-09-02 23:37] LABS: Candida albicans Not Detected (Not Detect); Candida glabrata Not Detected (Not Detect); Candida krusei Not Detected (Not Detect); Candida parapsilosis Not Detected (Not Detect); Candida tropicalis Not Detected (Not Detect); E. coli Detected (Not Detect); Enterobacter cloacae complex Not Detected (Not Detect); Haemophilus influenzae Not Detected (Not Detect); KPC (carbapenem-resist gene) Not Detected (Not Detect); Neisseria meningitidis Not Detected (Not Detect); Proteus species Not Detected (Not Detect); Pseudomonas aeruginosa Not Detected (Not Detect); Serratia marcescens Not Detected (Not Detect)
[2021-09-03] MEDS: LORazepam 2 MG/ML INJ 0.5 MG IV ×2 (00:42→05:15)
[2021-09-03] MEDS: KETAMINE PR (00:43)
[2021-09-03] MEDS: TROCHE PR (00:43)
[2021-09-03] MEDS: ACETAMINOPHEN 325 MG TABLET 650 MG PO (00:51)
[2021-09-03 03:00] VITALS: O2SAT 95
[2021-09-03 05:10] VITALS: BP 164/93; PULSE 92; RESP 18; TEMP 36.2; O2SAT 95
[2021-09-03 06:33] LABS: Add Manual Diff / Slide Review NO; Basophils Absolute Auto 0 /uL (0-100); Basophils Percent Auto 0.1 % (0-2); Eosinophils Absolute Auto 0 /uL (0-450); Hematocrit 30.8 % (36-46); Hemoglobin 10.4 g/dL (12.0-16.0); Lymphocytes Absolute Auto 300 /uL (1100-4500); Lymphocytes Percent Auto 4.3 % (25-40); Mean Corpuscular HGB Conc 33.6 % (30-36); Mean Corpuscular Hemoglobin 27.3 PG (26-34); Mean Corpuscular Volume 81.1 fL (80-100); Monocytes Absolute Auto 400 /uL (0-900); Monocytes Percent Auto 6.3 % (3-14); Neutrophils Absolute Auto 6300 /uL (1500-7000); Neutrophils Percent Auto 89.3 % (50-75); Platelet Count 244 X10^3/uL (150-400); Red Cell Distribution Width 14.4 % (11.6-14.8)
[2021-09-03 06:42] LABS: Magnesium 1.7 mg/dL (1.6-2.3); Phosphorous 1.6 mg/dL (2.5-4.5)
[2021-09-03 06:45] LABS: Alanine Aminotransferase 144 IU/L (<35); Albumin 3.7 g/dL (3.5-5.0); Albumin Globulin Ratio 1.3 (1.0-2.8); Alkaline Phosphatase 152 U/L (38-126); Aspartate Aminotransferase 150 IU/L (14-36); BUN Creatinine Ratio 26.5 (6-22); Bilirubin Conjugated 0.3 md/dL (0.0-0.3); Bilirubin Total 1.8 mg/dL (0.2-1.3); Bilirubin Unconjugated 0.4 mg/dL (0.0-1.1); Blood Urea Nitrogen 13 mg/dL (7-17); Calcium 8.9 mg/dL (8.4-10.2); Carbon Dioxide 26 mmol/L (22-32); Chloride 104 mmol/L (98-107); Estimated Glomerular Filt Rate > 60.0 mL/min (>60); Globulin 2.8 g/dL (1.7-4.1); Glucose 237 mg/dL (70-100); HEMOLYSIS < 15 (0-50); Potassium 2.9 mmol/L (3.4-5.1); Sodium 138 mmol/L (137-145); Total Protein 6.5 g/dL (6.3-8.2)
[2021-09-03] MEDS: INSULIN LISPRO 100 UNIT/ML 3ML VIAL SUBCUT (07:57)
[2021-09-03] MEDS: Lipase-Protease-Amylase [Creon] 36,000-114,000- 180,000 unit cap 3 EACH PO (08:00)
[2021-09-03] MEDS: BUPRENORPHINE NALOXONE 1 EACH SL (08:00)
[2021-09-03 08:08] VITALS: BP 164/93
[2021-09-03] MEDS: ENOXAPARIN 40 MG/0.4 ML SYRINGE SUBCUT (08:08)
[2021-09-03] MEDS: ONDANSETRON 4 MG/2 ML INJ IV (08:08)
[2021-09-03] MEDS: lisinopriL 5 MG TABLET PO (08:08)
[2021-09-03] MEDS: METHYLPHENIDATE 5 MG TABLET 10 MG PO (08:08)
[2021-09-03] MEDS: AMLODIPINE 5 MG TABLET PO (08:09)
[2021-09-03 08:26] VITALS: O2SAT 95
--- NOTE | 2021-09-03 08:38 | P.DS_ITS ---
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 Patient reports increased upper right abdominal pain, with nausea, vomiting, and diarrhea x4 days.? Patient denies chest pain, shortness of breath, urinary symptoms, palpitations, hematuria, hematemesis, melena, recent illness, injury, or trauma. Patient's vitals upon admit patient is febrile temp 99.5?, hypertensive 197/109, HR 88, RR 19, O2 saturation 98% on room air.? Patient has no white count but does have a left shift neutrophils 8,800, HGB 11.2, HCT 33.2, sodium 135, gl ucose 283, magnesium 1.5, bilirubin 2.5, AST 425, ALT 202, alk-phos 191, phosphorus 1.8, patient is positive for ketones 0.42, urinalysis was negative no culture.? Abdominal pelvis CT demonstrated no acute abdominal or pelvic abnormalities.? Abdominal ultrasound demonstrated no acute abdominal abnor malities.? Patient tested positive for Covid approximately 08/12/2021, she also tested positive Patient not in DKA, admitted for intractable nausea and vomiting. Discharge Providers Provider Date of admission: 09/02/21 03:06 Discharge Date: 09/03/21 Primary care physician: Neftaly Tomlinson MD Consults: 09/02/21 02:31 Consult to Physical Therapy Evaluate & Treat Comment: Physician Instructions: Evaluate and Treat Discharge provider: [place] DO Summary Hospital Course Discharge Diagnosis: 1. Intractable nausea, vomiting, acute, present on admission 2. Covid-19 infection, acute, present on admission 3. Chronic pain, chronic, with opiate and Suboxone dependence, chronic, present on admission. 4. Insulin dependent Diabetes type 2, with neuropathy, with hyperglycemia, acute on chronic, present on admission. 5. Essential Hypertension, in the setting hypertensive urgency, acute on chronic, present on admission. 6. Hyperlipidemia, chronic, present on admission. 7. HERRING with tranaminiitis and probable early cirrhosis, acute on chronic, present on admission 9. Bipolar 1 disorder, with major depressive disorder, Anxiety, resulting in benzodiazepine dependence, chronic, present on admission. Stable. ? 10. Overweight as evidence by BMI of 27.1, acute on chronic, present on admission 11. 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 She was rehydrated and given anti nausea medications. Her home medications, which are quite extensive and complex were slowly restarted. The etiology of her nausea, and vomiting is not entirely clear. She had a significant transaminitis which improved over the course of her admission, though there were no biliary obstructions. These, along with her symptoms, may be a result of drug-induced lung injury as a result of her polypharmacy dehydration, or COVID infection. The patient had no respiratory symptoms of COVID currently. Gastroparesis seems to be less likely given her improvement. The day following admission the p atient was back to her usual baseline and she was discharged home. I recommend that she try and reduce a number of her medications with the help of her psychiatrist. No home medications were adjusted as result of this visit given her rapid improvement in symptoms. Exam Vital Signs (past 8 hours): - 09/03/21 03:00 09/03/21 05:10 09/03/21 08:08 Temperature 97.1 F L Pulse Rate 92 H Respiratory Rate 18 Blood Pressure 164/93 H 164/93 H Pulse Oximetry 95 95 09/03/21 08:26 Temperature Pulse Rate Respiratory Rate Blood Pressure Pulse Oximetry 95 Oxygen Delivery Method Room Air Oxygen Flow Rate 0 Narrative Exam Narrative: General:? Middle-aged female lying in bed and in no acute distress, well- developed, well-nourished, appropriately interactive Neck: Supple with full range of motion. No jugular venous distension. No lymphadenopathy or thyromegaly. Cardiovascular: Regular rhythm, tachycardic, without murmurs, rubs, or gallops appreciated. Pulmonary: Clear to auscultation bilaterally without crackles, wheezes, or rhonchi.? Normal respiratory effort with no use of accessory muscles. Abdomen:?S NT ND Extremities: No clubbing, cyanosis, or edema. Skin: Normal temperature, turgor, and texture; no rash, ulcers, or subcutaneous nodules appreciated. Neurological: Cranial nerves grossly intact. Strength equal and +5 in all extremities. Psychiatric:? Normal mood and affect. Alert and oriented to person, place, and time. Objective Labs Result Diagrams: 09/03/21 06:05 09/03/21 06:05 Labs: Laboratory Results - last 24 hr 09/01/21 09/02/21 09/02/21 23:15 06:25 17:20 WBC RBC Hgb Hct MCV MCH MCHC RDW Plt Count Neut % (Auto) Lymph % (Auto) [place] % (Auto) Eos % (Auto) Baso % (Auto) Neut # (Auto) Lymph # (Auto) [place] # (Auto) Eos # (Auto) Baso # (Auto) Sodium 137 Potassium 3.0 L Chloride 99 Carbon Dioxide 26 BUN 13 Creatinine 0.55 Estimated GFR > 60.0 BUN/Creatinine Ratio 23.6 H Glucose 271 H Calcium 9.5 Phosphorus 0.9 L* D Magnesium 1.4 L Total Bilirubin 2.4 H Conjugated Bilirubin 0.8 H Unconjugated Bilirubin 0.6 AST 320 H ALT 181 H Alkaline Phosphatase 176 H Total Protein 7.3 Albumin 4.2 Globulin 3.1 Albumin/Globulin Ratio 1.4 A. baumannii (PCR) Not detected Lisbeth albicans (PCR) Not detected C. glabrata (PCR) Not detected C. krusei (PCR) Not detected C. parapsilosis (PCR) Not detected C. tropicalis (PCR) Not detected Enterobacteriac sp PCR Detected H E. cloacae complex PCR Not detected Enterococcus sp PCR Not detected E. coli (PCR) Detected H H. influenzae (PCR) Not detected Klebsiella oxytoca PCR Not detected Klebsiella pneumoniae Not detected List. monocytogenes PCR Not detected N. meningitidis (PCR) Not detected Proteus species (PCR) Not detected Serratia marcescens PCR Not detected Staphylococcus sp PCR Not detected Staph aureus (PCR) Not detected mecA-Methicil Res Gene Not Reportable Streptococcus sp PCR Not detected Group A Strep (PCR) Not detected Strep agalactiae (PCR) Not detected Strep pneumoniae (PCR) Not detected P. aeruginosa (PCR) Not detected Rad/B-Vanco Res Genes Not Reportable KPC-Carbap Res Gene PCR Not detected 09/03/21 09/03/21 09/03/21 06:05 06:05 06:05 WBC 7.0 RBC 3.80 L Hgb 10.4 L Hct 30.8 L MCV 81.1 MCH 27.3 MCHC 33.6 RDW 14.4 Plt Count 244 Neut % (Auto) 89.3 H Lymph % (Auto) 4.3 L [place] % (Auto) 6.3 Eos % (Auto) 0.0 L Baso % (Auto) 0.1 Neut # (Auto) 6300 Lymph # (Auto) 300 L [place] # (Auto) 400 Eos # (Auto) 0 Baso # (Auto) 0 Sodium 138 Potassium 2.9 L Chloride 104 Carbon Dioxide 26 BUN 13 Creatinine 0.49 L Estimated GFR > 60.0 BUN/Creatinine Ratio 26.5 H Glucose 237 H Calcium 8.9 Phosphorus 1.6 L Magnesium 1.7 Total Bilirubin 1.8 H Conjugated Bilirubin 0.3 Unconjugated Bilirubin 0.4 AST 150 H ALT 144 H Alkaline Phosphatase 152 H Total Protein 6.5 Albumin 3.7 Globulin 2.8 Albumin/Globulin Ratio 1.3 A. baumannii (PCR) Lisbeth albicans (PCR) C. glabrata (PCR) C. krusei (PCR) C. parapsilosis (PCR) C. tropicalis (PCR) Enterobacteriac sp PCR E. cloacae complex PCR Enterococcus sp PCR E. coli (PCR) H. influenzae (PCR) Klebsiella oxytoca PCR Klebsiella pneumoniae List. monocytogenes PCR N. meningitidis (PCR) Proteus species (PCR) Serratia marcescens PCR Staphylococcus sp PCR Staph aureus (PCR) mecA-Methicil Res Gene Streptococcus sp PCR Group A Strep (PCR) Strep agalactiae (PCR) Strep pneumoniae (PCR) P. 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 Neuropathy, diabetic Nonalcoholic steatohepatitis (HERRING) Obesity (BMI 30-39.9) Obstructive sleep apnea of adult Opiate dependence, continuous Renal insufficiency Snoring Type 2 diabetes mellitus Surgical History Gastrocnemius equinus of right lower extremity H/O hysterectomy for benign disease History of appendectomy History of cholecystectomy Lumbar post-laminectomy syndrome Right humeral fracture Family History Father COPD (chronic obstructive pulmonary disease) Mother Hypertension Sister Fibromyalgia Social History marital status: details: to [facility] household members: spouse lives independently: Yes caregiver/support person: No occupational status: unemployed Smoking Status: Never smoker alcohol intake: former substance use type: marijuana Discharge Plan Discharge Plan Patient Disposition: Home Provider Discharge Comment: You were admitted to the hospital with abdominal pain. Possibly related to COVID infection, dehydration, with medication reaction. Please continue to work on decreasing your medications, and please try and use as minimal ketamine as possible. Please follow up with your psychiatrist as previously scheduled. No medication changes are necessary at this time. Discharge orders & Medications Prescriptions: Continued metoprolol succinate [Toprol XL] 100 MG tablet extended release 24 hr 100 mg PO DAILY Qty: 0 0RF fenofibrate 160 MG tablet 160 mg PO DAILY Qty: 0 0RF Lantus U-100 Insulin 100 UNIT/1 ML solution 30 unit SQ QPM Qty: 0 0RF Rx Instructions: At bedtime insulin aspart U-100 [Novolog U-100 Insulin aspart] 100 UNIT/1 ML solution 10 - 25 unit SQ TIDAC Qty: 0 0RF Rx Instructions: sliding scale metoclopramide HCl [Reglan] 5 MG tablet 10 mg PO QID PRN (Reason: Nausea) Qty: 0 0RF quetiapine [Seroquel] 400 MG tablet 400 mg PO BEDTIME Qty: 0 0RF Lantus U-100 Insulin 100 unit/mL solution 30 unit SUBCUT DAILY Qty: 0 0RF Rx Instructions: 30 Unit in the morning ketamine 100 mg narinder 100 mg sublingual DAILY 0RF quetiapine [Seroquel] 100 mg tablet 100 mg PO BID PRN (Reason: episodes) Qty: 0 0RF tizanidine 2 mg tablet 4 mg PO Q8H PRN (Reason: Spasms) 0RF amlodipine besylate tablet 120 mg PO DAILY 0RF Creon 36,000-114,000- 180,000 unit capsule,delayed release(DR/EC) 2 cap PO DAILY 0RF Rx Instructions: administer with meals and/or snacks vitamin B complex Tablet 1 tab PO DAILY 0RF cholecalciferol (vitamin D3) 50 mcg (2,000 unit) capsule 50 mcg PO DAILY 0RF lamotrigine 25 mg tablet 150 mg PO DAILY 0RF dicyclomine 20 mg tablet 20 mg PO QID PRN (Reason: (Drug) Ingestion) 0RF methylphenidate HCl 10 mg tablet 10 mg PO TID Qty: 90 0RF omega-3 acid ethyl esters 1 gram Capsule 2 cap PO BID 0RF ondansetron 4 mg tablet,disintegrating 4 mg PO Q4H PRN (Reason: nausea and vomiting) Qty: 20 0RF tramadol 50 mg tablet 50 mg PO Q6-8H PRN (Reason: pain) Qty: 20 0RF atorvastatin 80 mg tablet 80 mg PO DAILY 0RF valacyclovir 500 mg tablet 500 mg PO DAILY PRN (Reason: herpes) 0RF Label Comments: TK 2 TS PO BID lisinopril 5 mg tablet 5 mg PO DAILY 0RF metformin 500 mg tablet extended release 24 hr 500 mg PO DAILY 0RF zolpidem 12.5 mg tablet,ext release multiphase 12.5 mg PO BEDTIME 0RF buprenorphine-naloxone 2-0.5 mg film 1 film sublingual DAILY 0RF lorazepam 2 MG tablet 2 mg PO TID Qty: 0 0RF fluoxetine 20 mg capsule 60 mg PO DAILY 0RF Hold Instructions: Insurance denied; PA pending Follow up/Referrals: Neftaly Tomlinson MD [Primary Care Provider] - Diet/Activity/Treatments Diet: Diet as Tolerated and Low-fat Diet comment: Continue creon. Activity: As tolerated Visit Report/Discharge Packet Instructions: DI for Prescription Opioid Use Discharge Data Primary Care Provider: Tomlinson,Neftaly Attending Provider: Ludivina Ahumada VTE Deep Vein Thrombosis/Pulmonary Embolism Present on Admission: No
[2021-09-03] MEDS: SODIUM,POTASSIUM PHOSPHATES PACKET 2 EACH PO (09:05)
[2021-09-03] MEDS: POTASSIUM CHLORIDE 20 MEQ TAB 40 MEQ PO (09:05)
--- NOTE | 2021-09-03 09:58 | PC.NURSE ---
Pt is dressed and ready for discharge home with Spouse. IV removed. Went over d/c instructions with Pt (and Spouse via phone)-discussed d/c meds, time of last dose, reviewed stroke education, portal, and follow up. Pt advised to try to titrate down her Ketamine as able and to see her physician as needed. Pt out via w/c by RN to pov with Spouse and all belongings.
[2021-09-05 14:32] LABS: H. Pylori Antigen Stool Negative (Negative)
== END 2021-09-03 10:03 | disposition home or self-care (01) ==
LOC: ED 09-02 02:15 → AC 09-02 03:08
PROVIDERS: Internal Medicine; Admitting Provider Nurse Practitioner Family; Emergency Provider Emergency Medicine; PCP Internal Medicine; Referring Provider Emergency Medicine; Visit Provider Nurse Practitioner Family
DX: R11.2 Nausea with vomiting, unspecified (principal); U07.1 COVID-19; E11.9 Type 2 diabetes mellitus without complications; Z79.4 Long term (current) use of insulin; Z79.84 Long term (current) use of oral hypoglycemic drugs; K86.1 Other chronic pancreatitis; G89.29 Other chronic pain; K75.81 Nonalcoholic steatohepatitis (NASH); F11.20 Opioid dependence, uncomplicated; I10 Essential (primary) hypertension; E78.5 Hyperlipidemia, unspecified; G47.10 Hypersomnia, unspecified; F33.9 Major depressive disorder, recurrent, unspecified; F41.9 Anxiety disorder, unspecified; Z68.27 Body mass index [BMI] 27.0-27.9, adult
CPT/HCPCS: 36415; 74177; 76705; 80048; 80053; 80076; 81003; 81015; 82009; 82962; 83036; 83605; 83690; 83735; 84100; 85025; 87040; 87045; 87086; 87147; 87150; 87186; 87205; 87338; 87493; 87635; 87899; 93005; 93010; 94760; 96361; 96374; 96375; 96376; 99284; C9803; G0378; J1650; J1815; J2060; J2405; J2765; Q9967

== ENCOUNTER 2021-09-08 14:17 | Inpatient (IN) | payer OTHER, SELFPAY ==
[2021-09-02 03:22] VITALS: BMI 26.9
[2021-09-08] VITALS (40 sets, daily range): BP systolic 127–225; BP diastolic 65–153; PULSE 60–86; RESP 12–28; TEMP 36.4–37.4; O2SAT 94–100; BMI 26.8
--- NOTE | 2021-09-08 14:27 | DI.RAD.S_ITS ---
PROCEDURE: XR CHEST 1V INDICATIONS: Possible stroke TECHNIQUE: One view of the chest was acquired. COMPARISON: [facility], , XR CHEST 1V, 05/03/2019, 21:22. FINDINGS: Surgical changes and devices: None. Lungs and pleura: Lungs are clear. No pleural effusions or pneumothorax. Mediastinum: Heart size is enlarged. Low lung volumes accentuate pulmonary interstitium and heart size. Bones and chest wall: No suspicious bony lesions. Overlying soft tissues appear unremarkable. IMPRESSION: Cardiomegaly accentuated by low lung volumes Approved by: Osmany Bonilla M.D. on 09/08/2021 at 13:52
--- NOTE | 2021-09-08 14:27 | DI.CT.S_ITS ---
PROCEDURE: CT STROKE INDICATIONS: unresponsive. last known well 1350 TECHNIQUE: Noncontrast 4.5 mm thick angled axial sections acquired from the foramen magnum to the vertex, with coronal reformats. For radiation dose reduction, the following was used: automated exposure control, adjustment of mA and/or kV according to patient size. COMPARISON: [facility], CT, CT ANGIO HEAD AND NECK, 09/08/2021, 14:28. FINDINGS: Image quality: Excellent. CSF spaces: Basal cisterns are patent. No extra-axial fluid collections. Ventricles are normal in size and shape. Brain: No midline shift. No intracranial masses or hemorrhage. [place]uel[place]-white matter interface is normal. Skull and face: Calvarium and visualized facial bones are intact, without suspicious lesions. Incidental hyperostosis frontalis interna noted. Sinuses: Visualized sinuses and mastoids are clear. IMPRESSION: Unremarkable CT brain without intracranial hemorrhage or mass effect. This study fulfills neurological imaging criteria for inclusion or exclusion of acute stroke therapies based on available published neurological imaging guidelines. Note: Critical results were discussed with Dr. Gutierrez at 01:45 PM [place] time on 09/08/21 Approved by: Osmany Bonilla M.D. on 09/08/2021 at 13:51
--- NOTE | 2021-09-08 14:30 | PC.NURSE ---
Per EMS pt may have taken ketamine prescription prior.
--- NOTE | 2021-09-08 14:32 | DI.CT.S_ITS ---
PROCEDURE: CT ANGIO HEAD AND NECK INDICATIONS: unresponsive TECHNIQUE: After the administration of intravenous contrast, 1 mm thick sections acquired from the aortic arch through the [place] of [place]. Post-contrast 4.5 mm thick sections then re-acquired from the foramen magnum to the vertex. 3-dimensional ntumdfl-yweerwlob-ulnpltotie (MIP) and/or volume rendering reformats were acquired of the central intracranial vasculature and neck separately. COMPARISON: None. FINDINGS: Image quality: Excellent. BRAIN: CSF spaces: Ventricles are normal in size and shape. Basal cisterns are patent. No extra-axial fluid collections. Brain: No midline shift. No intracranial bleeds or masses. [place]-white matter interface appears intact. Skull and face: Calvarium and facial bones appear intact, without suspicious lesions. Orbits appear normal. Sinuses: Sinuses and mastoids are clear. HEAD CT ANGIOGRAPHY: Anterior circulation: Intracranial internal carotid arteries are normal in size and flow. The flow within the paired anterior cerebral arteries is normal and symmetric. The flow within the middle cerebral arteries is normal and symmetric. The anterior communicating artery is seen. No aneurysms are seen. Posterior circulation: Visualized portions of the vertebral arteries demonstrate normal caliber, and join to form a normal appearing basilar artery. Flow within the posterior cerebral arteries is normal and symmetric. No aneurysms are seen. NECK CT ANGIOGRAPHY: Carotid system: The great vessels demonstrate a conventional anatomy as they arise from the aortic arch. The origins of the common carotid arteries appear patent. The common carotid arteries demonstrate normal caliber and courses. The bifurcation regions are both widely patent. The internal carotid arteries demonstrate normal calibers and courses. Posterior circulation: The origins of the vertebral arteries both appear widely patent. The more superior extracranial portions of both vertebral arteries also demonstrate normal courses and calibers. They join to form a normal appearing basilar artery. Soft tissues: Visualized neck soft tissues demonstrate no suspicious abnormalities. There is mild ground-glass density within the right mid lung posteriorly. Bones: No suspicious bony lesions. Visualized cervical spine appears normally aligned. IMPRESSION: 1. No acute process involving the arterial tree of the head and neck. 2. Right mid lung pneumonia versus atelectasis. Any quantitative measurements of stenosis were performed using NASCET criteria. Dictated by: Hudson Go M.D. on 09/08/2021 at 14:41 Approved by: Hudson Go M.D. on 09/08/2021 at 14:44
--- NOTE | 2021-09-08 14:40 | PC.NURSE ---
Breath sounds clear bilaterally throughout, heart sounds audible. Breathing normal depth, nonlabored. Bilateral radial pulses and bilateral dorsalis pedus pulses palpable normal strength. Pt flinches to painful stimulus, moaning.
[2021-09-08 14:52] LABS: Add Manual Diff / Slide Review NO; Basophils Absolute Auto 0 /uL (0-100); Basophils Percent Auto 0.2 % (0-2); Eosinophils Absolute Auto 0 /uL (0-450); Eosinophils Percent Auto 0.9 % (2-4); Hematocrit 24.6 % (36-46); Hemoglobin 8.4 g/dL (12.0-16.0); Lymphocytes Absolute Auto 600 /uL (1100-4500); Mean Corpuscular Hemoglobin 27.5 PG (26-34); Mean Corpuscular Volume 80.7 fL (80-100); Monocytes Absolute Auto 500 /uL (0-900); Monocytes Percent Auto 9.3 % (3-14); Neutrophils Absolute Auto 4100 /uL (1500-7000); Neutrophils Percent Auto 77.6 % (50-75); Platelet Count 314 X10^3/uL (150-400); Red Blood Cell Count 3.05 X10^6/uL (4.0-5.2); Red Cell Distribution Width 14.5 % (11.6-14.8); White Blood Cell Count 5.3 X10^3/uL (4.5-11.0)
--- NOTE | 2021-09-08 14:55 | PC.NURSE ---
Pt family member states pt was normal for lunch then went to her room, he states shortly found her pt diaphoretic, unresponsive, hand moving. States last time he saw her normal was between [id number].
[2021-09-08 14:56] LABS: INR 1.3 (0.9-1.3); Prothrombin Time 15.2 SECONDS (10.1-12.7)
[2021-09-08 14:59] LABS: COVID19 -Nasal RAPID POSITIVE (Negative)
[2021-09-08 14:59] LABS: PTT Partial Thromboplastin Tim 36 SECONDS (26.4-36.2)
[2021-09-08 15:01] LABS: Ammonia (NH3) 10 umol/L (9-30); Lactate (Lactic Acid) 1.7 mmol/L (0.7-2.1)
[2021-09-08 15:06] LABS: UR Morphine/Opiate cutoff 300 Negative (Negative); Ur Creatinine Normal (Normal); Ur Specific Gravity Normal (Normal); Urine Amphetamines Negative (Negative); Urine Barbiturates Negative (Negative); Urine Benzodiazepines Positive (Negative); Urine Cocaine Negative (Negative); Urine MDMA Negative (Negative); Urine Methadone Negative (Negative); Urine Methamphetamines Negative (Negative); Urine Oxycodone Negative (Negative); Urine Phencyclidine Negative (Negative); Urine Tetrahydrocannabinol Positive (Negative); Urine Tricyclic Antidepressant Positive (Negative); Urine pH Normal (Normal)
[2021-09-08] MEDS: NALOXONE 0.4 MG/ML VIAL IV (15:08)
[2021-09-08] MEDS: SODIUM CHLORIDE 0.9% 1,000 ML 1000 ML IV (15:09)
--- NOTE | 2021-09-08 15:14 | ED.NEUROSD ---
HPI - Neuro Symptoms/Deficit General Chief Complaint: Neuro Symptoms/Deficit Stated Complaint: unresponsive Time Seen by Provider: 09/08/21 14:25 History of Present Illness HPI Narrative: The patient arrives with possible CVA. She was last seen as normal at home 30 60 minutes prior to arrival here by her . She was up and about, normal behavior. Thirty is 60 minutes later he found her sitting. She was moving her right side. She was not responding to him verbally. She arrives to the ER by EMS as a code stroke. She is lying still with her eyes closed. She is not moving left side. She is not responding verbally. She does move the right side. She has no obvious prior history of stroke. She has history IDDM, pancreatitis, bipolar 1 disorder, major depressive disorder, HERRING, and narcotic dependent chronic pain issues. She has chronic back pain. She was diagnosed at home with COVID-19 about 1 week ago. Her describes her having no respiratory issues, complaints of headache or fever. She seemed to be doing well. When he found her, he checked her glucose. Her glucose was under 150s. She seemingly has been doing quite well. She was seen in the ER about a week ago, admitted for nausea vomiting with abdominal pain. Related Data Home Medications Medication Instructions Recorded Confirmed fenofibrate 160 mg tablet 160 mg PO DAILY #0 09/19/17 09/08/21 insulin aspart U-100 100 unit/mL 10 - 25 unit SQ TIDAC #0 09/19/17 09/08/21 subcutaneous solution (Novolog U-100 Insulin aspart) metoclopramide HCl 5 mg tablet 10 mg PO QID PRN #0 09/19/17 09/08/21 (Reglan) metoprolol succinate 100 mg 100 mg PO DAILY #0 09/19/17 09/08/21 tablet,extended release 24 hr (Toprol XL) quetiapine 400 mg tablet (Seroquel) 400 mg PO BEDTIME #0 09/19/17 09/08/21 fluoxetine 20 mg capsule 60 mg PO DAILY 10/10/18 09/08/21 omega-3 acid ethyl esters 1 gram 2 cap PO BID 04/17/19 09/02/21 capsule atorvastatin 80 mg tablet 80 mg PO DAILY 01/06/20 09/02/21 buprenorphine 2 mg-naloxone 0.5 mg 1 film SUBLINGUAL DAILY 01/06/20 09/08/21 sublingual film lisinopril 5 mg tablet 5 mg PO DAILY 01/06/20 09/08/21 metformin 500 mg tablet,extended 500 mg PO DAILY 01/06/20 09/02/21 release 24 hr valacyclovir 500 mg tablet 500 mg PO DAILY PRN 01/06/20 09/02/21 zolpidem 12.5 mg tablet,extended 12.5 mg PO BEDTIME 01/06/20 09/02/21 release,multiphase cholecalciferol (vitamin D3) 50 50 mcg PO DAILY 11/28/20 09/08/21 mcg (2,000 unit) capsule dicyclomine 20 mg tablet 20 mg PO QID PRN 11/28/20 09/08/21 insulin glargine 100 unit/mL 30 unit SUBCUT DAILY #0 ml 11/28/20 09/08/21 subcutaneous solution (Lantus U-100 Insulin) ketamine 100 mg sublingual narinder 100 mg SUBLINGUAL DAILY tab 11/28/20 09/08/21 lamotrigine 25 mg tablet 150 mg PO DAILY tab 11/28/20 09/08/21 blffkq-nhoznvwg-fjasakf 2 cap PO DAILY cap 11/28/20 09/08/21 36,000-114,000-180,000 unit capsule,delay rel (Creon) quetiapine 100 mg tablet (Seroquel) 100 mg PO BID PRN #0 tab 11/28/20 09/08/21 tizanidine 2 mg tablet 4 mg PO Q8H PRN tab 11/28/20 09/02/21 vitamin B complex 1 tab PO DAILY 11/28/20 09/02/21 amlodipine 10 mg tablet 10 mg PO DAILY 09/08/21 09/08/21 Previous Rx's Medication Instructions Recorded tramadol 50 mg tablet 50 mg PO Q6-8H PRN #20 tab 01/05/20 lorazepam 2 mg tablet 2 mg PO TID #0 tab 01/08/20 ondansetron 4 mg disintegrating 4 mg PO Q4H PRN #20 tab 05/26/20 tablet methylphenidate HCl 10 mg tablet 10 mg PO TID #90 tab 08/17/21 Allergies Allergy/AdvReac Type Severity Reaction Status Date / Time No Known Drug Allergies Allergy Verified 02/18/22 15:48 Review of Systems Review of Systems Narrative: See HPI. Details are provided by her . No other information is available due to the patient's medical condition. 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 Neuropathy, diabetic Nonalcoholic steatohepatitis (HERRING) Obesity (BMI 30-39.9) Obstructive sleep apnea of adult Opiate dependence, continuous Renal insufficiency Snoring Type 2 diabetes mellitus Surgical History Gastrocnemius equinus of right lower extremity H/O hysterectomy for benign disease History of appendectomy History of cholecystectomy Lumbar post-laminectomy syndrome Right humeral fracture Family History Father COPD (chronic obstructive pulmonary disease) Mother Hypertension Sister Fibromyalgia Social History marital status: details: to Ranie household members: spouse lives independently: Yes caregiver/support person: No occupational status: unemployed Smoking Status: Never smoker alcohol intake: former substance use type: marijuana Smoking Status: Never smoker alcohol intake frequency: 0-2 drinks per day Substance Use Type: does not use Exam Initial Vital Signs Initial Vital Signs: Vital Signs Pulse Rate 62 09/08/21 14:23 Respiratory Rate 14 09/08/21 14:23 Blood Pressure 133/65 09/08/21 14:23 Pulse Oximetry 94 09/08/21 14:23 Const General: acute distress and disheveled Nutritional Appearance: other (Minimally responsive to verbal and physical stimulus.) HENMT Head: normal to inspection, normocephalic and atraumatic Ears: TM's normal bilaterally Nose: nares normal Face and sinus: normal facial exam Mouth: oropharynx normal Eyes Conjunctivae: conjunctivae normal Sclera: sclerae normal Pupils: pupil size on the right 6 and on the left 6 EOM: No nystagmus Neck Neck: full ROM, supple and other (No JVD) Thyroid: thyroid normal Chest Chest: normal inspection of the chest Resp Effort & Inspection: normal respiratory effort Auscultation: clear to auscultation bilaterally Cardio Rate: regular rate Rhythm: regular rhythm Heart Sounds: S1 normal, S2 normal and no murmurs GI Inspection: normal to inspection Palpation: soft and No tender Auscultation: normal bowel sounds Back/Spine/Pelvis Back: normal to inspection Skin General: no rashes or lesions noted Neuro Cranial Nerves: No nystagmus Other: Somnolent. Minimally responsive to sternal rub. She allows for a left facial hand drop to hit her face. She does avoid right hand drop. No facial droop. Normal motion in the right side. She does not spontaneously move the left hand, or left leg. However, on exam, these digits are rigid. She resists my motion of the extremities and exam. She seems to have a sensory deficit on the left side. It is unclear with her altered mental status. Extrem General: normal to inspection Scores GCS [place] coma scale eye opening: To pressure [place] coma scale verbal response: None [place] coma scale motor response: Localising [place] coma scale total score: 8 NIH Stroke Scale Level of Conciousness: Not alert, requires repeated stimulation to attend, or is obtunded Ask month/age: Answers neither question correctly, aphasic, stuporous, coma Open/close eyes, close hand: Performs neither task correctly Best gaze horizontal: Normal Visual castro: No visual loss Facial palsy: Normal symetrical movement Left arm drift: No effort against gravity Right arm drift: No drift for full 10 sec Left leg drift: No effort against gravity Right leg drift: No drift for full 5 sec Limb ataxia: Present in one limb Sensory on face/arms/legs: Mild to moderate sensory loss, can tell touch Best language: Severe aphasia, not much is understood, fragmented Dysarthria: Severe, unintelligible Extinction or inattention: Profound juan ramon-inattention. Does not recognize own hand, one side Total NIH Stroke scale score: 20 Course Course Course Narrative: The patient was evaluated as code stroke. Head CT is negative, CTA head and neck are negative. Stroke Neurology,Dr Coleman at [facility] was consulted. She evaluated the patient by tele stroke monitoring. The patient had begin using her left leg, displayed rigidity left arm. She was feeling about and agitated. She does not clearly have a CVA that would be amenable to treatment with tPA. The flailing about would be concerning, for receiving tPA alone. The concern was more along the line of psychosis, or encephalitis. The complex medications the patient is using may be of concern. She was given baby aspirin. The patient's evaluations were discussed with the hospitalist, Dr. Braun. I added thyroid studies, prolactin, and an order for Lamictal level to the patient. MRI of the brain was ordered, but not immediately available. Her vitals are stable, with the addition of oxygen. She is COVID positive, chest x-ray shows perihilar infiltrate, nothing dramatic. She has no evidence of sepsis. Blood pressure and heart rhythm are stable. Anemia is noted. She is admitted for mental status changes, presume psychosis versus encephalitis. Dr Braun is the is admitting physician. Orders Ordered: ED Orders 09/08/21 14:22 COVID19 -Nasal swab/Pre-Proc Stat 09/08/21 14:27 CT Stroke Stat XR chest 1V Stat 09/08/21 14:32 CT angio head and neck Stat 09/08/21 14:35 Ammonia (NH3) Stat Complete Blood Count AUTO DIFF Stat Lactate (Lactic Acid) Stat Partial Thromboplastin Time Stat Procalcitonin Stat Prothrombin Time INR Stat Type and Screen Stat 09/08/21 14:38 EKG-12 Lead Stat 09/08/21 14:39 Lamotrigine Lamictal Stat Prolactin Stat TSH w/ Reflex to FT4 Stat 09/08/21 14:44 Blood Culture Stat 09/08/21 14:45 Urine Drug Screen, Rapid Stat 09/08/21 15:16 Urinalysis and Microscopic Stat Urine Culture Stat 09/08/21 16:05 Comprehensive Metabolic Panel Stat Troponin & CK Cardiac Panel Stat 09/08/21 17:09 MR stroke Stat Naloxone HCl (Naloxone 0.4 Mg/Ml Vial) 0.4 mg IV Q2MIN PRN PRN Reason: Opiate Reversal Last Admin: 09/08/21 15:08 Dose: 0.4 mg Documented by: ATAYLOR Discontinued Medications Aspirin (Aspirin 325 Mg Tablet) 325 mg PO NOW ONE Stop: 09/08/21 17:38 Last Admin: 09/08/21 18:16 Dose: Not Given Documented by: KBRYERS Aspirin (Aspirin 81 Mg Chew Tab) 324 mg PO NOW ONE Stop: 09/08/21 17:57 Last Admin: 09/08/21 18:17 Dose: Not Given Documented by: CATERINA Aspirin (Aspirin 300 Mg Supp) 300 mg NC NOW ONE Stop: 09/08/21 18:15 Sodium Chloride (Normal Saline 0.9%) 1,000 mls @ 1,000 mls/hr IV BOLUS ONE Stop: 09/08/21 16:01 Last Infusion: 09/08/21 16:25 Dose: 0 mls/hr Documented by: Admin: 09/08/21 15:09 Dose: 1,000 mls/hr Documented by: LOBO Vital Signs Vital signs: Vital Signs - 8 hr 09/08/21 14:23 09/08/21 14:30 09/08/21 14:42 Temperature 97.5 F L Pulse Rate 62 60 71 Respiratory Rate 14 14 20 Blood Pressure 133/65 Pulse Oximetry 94 96 96 09/08/21 14:45 09/08/21 14:50 09/08/21 14:55 Temperature 98.4 F 99.0 F 99.1 F Pulse Rate 71 74 72 Respiratory Rate 17 27 H 19 Blood Pressure 157/86 H 171/96 H 157/80 H Pulse Oximetry 96 96 97 09/08/21 15:00 09/08/21 15:05 09/08/21 15:10 Temperature 99.3 F 99.3 F 99.3 F Pulse Rate 69 65 71 Respiratory Rate 17 16 22 Blood Pressure 145/83 H 127/69 169/79 H Pulse Oximetry 97 96 97 09/08/21 15:15 09/08/21 15:20 09/08/21 15:25 Temperature 99.3 F 99.3 F 99.1 F Pulse Rate 74 72 75 Respiratory Rate 20 12 25 H Blood Pressure 169/90 H 157/85 H 170/101 H Pulse Oximetry 97 99 99 09/08/21 15:30 09/08/21 15:35 09/08/21 15:40 Temperature 99.1 F 99.0 F 99.0 F Pulse Rate 76 76 75 Respiratory Rate 18 24 14 Blood Pressure 180/107 H 168/91 H 209/104 H Pulse Oximetry 98 95 97 09/08/21 15:50 09/08/21 15:51 09/08/21 16:00 Temperature 98.8 F 98.8 F 98.8 F Pulse Rate 79 79 80 Respiratory Rate 13 28 H 19 Blood Pressure 163/124 H Pulse Oximetry 100 98 99 09/08/21 16:01 09/08/21 16:10 09/08/21 16:20 Temperature 98.8 F 98.8 F 99.1 F Pulse Rate 81 76 75 Respiratory Rate 25 H 27 H 18 Blood Pressure 212/153 H Pulse Oximetry 98 98 99 09/08/21 16:21 09/08/21 16:30 09/08/21 16:40 Temperature 99.1 F 99.3 F 99.3 F Pulse Rate 76 76 79 Respiratory Rate 22 20 20 Blood Pressure 173/105 H 151/76 H 149/74 H Pulse Oximetry 99 97 99 09/08/21 16:50 09/08/21 17:00 09/08/21 17:10 Temperature 99.3 F 99.3 F 99.3 F Pulse Rate 79 75 71 Respiratory Rate 18 18 18 Blood Pressure 155/96 H 159/84 H 154/86 H Pulse Oximetry 99 97 97 MDM - Neuro Symptoms/Deficit Lab Data Result diagrams: 09/08/21 14:35 09/08/21 16:05 Labs: Lab Results 09/08/21 09/08/21 09/08/21 Range/Units 14:22 14:35 14:35 WBC 5.3 (4.5-11.0) X10^3/uL RBC 3.05 L (4.0-5.2) X10^6/uL Hgb 8.4 L (12.0-16.0) g/dL Hct 24.6 L (36-46) % MCV 80.7 (80-100) fL MCH 27.5 (26-34) PG MCHC 34.0 (30-36) % RDW 14.5 (11.6-14.8) % Plt Count 314 (150-400) X10^3/uL Neut % (Auto) 77.6 H (50-75) % Lymph % (Auto) 12.0 L (25-40) % [place] % (Auto) 9.3 (3-14) % Eos % (Auto) 0.9 L (2-4) % Baso % (Auto) 0.2 (0-2) % Neut # (Auto) 4100 (2892-6751) /uL Lymph # (Auto) 600 L (8378-6719) /uL [place] # (Auto) 500 (0-900) /uL Eos # (Auto) 0 (0-450) /uL Baso # (Auto) 0 (0-100) /uL PT 15.2 H (10.1-12.7) SECONDS INR 1.3 (0.9-1.3) APTT 36 (26.4-36.2) SECONDS Sodium (137-145) mmol/L Potassium (3.4-5.1) mmol/L Chloride (98-107) mmol/L Carbon Dioxide (22-32) mmol/L BUN (7-17) mg/dL Creatinine (0.52-1.04) mg/dL Estimated GFR (>60) mL/min BUN/Creatinine Ratio (6-22) Glucose (70-100) mg/dL Lactate (0.7-2.1) mmol/L Calcium (8.4-10.2) mg/dL Total Bilirubin (0.2-1.3) mg/dL AST (14-36) IU/L ALT (<35) IU/L Alkaline Phosphatase (38-126) U/L Ammonia (9-30) umol/L Total Creatine Kinase (30-135) U/L CK-MB (CK-2) (<2.37) ng/mL CK-MB (CK-2) Rel Index (1.5-5.0) % Troponin I (0.01-0.034) ng/mL Total Protein (6.3-8.2) g/dL Albumin (3.5-5.0) g/dL Globulin (1.7-4.1) g/dL Albumin/Globulin Ratio (1.0-2.8) Procalcitonin (<0.5) ng/mL TSH (0.47-4.68) uIU/mL Prolactin (3.0-18.6) ng/mL Urine Color Urine Appearance Urine pH (4.5-8.0) Ur Specific [place] (1.000-1.035) Urine Protein (Negative) Urine Glucose (UA) (Negative) g/dL Urine Ketones (NEGATIVE) Urine Occult Blood (Negative) Urine Nitrate (Negative) Urine Bilirubin (NEGATIVE) Urine Urobilinogen (0.2) E.U./dL Ur Leukocyte Esterase (NEGATIVE) Urine RBC (0-5/HPF) Urine WBC (0-5/HPF) Ur Squamous Epith Cells (0-5/HPF) Amorphous Sediment Urine Bacteria (None) Ur Culture Indicated? U Opiates 300ng/mL cut (Negative) Ur Oxycodone Screen (Negative) Urine Methadone Screen (Negative) Ur Barbiturates Screen (Negative) U Tricyclic Antidepress (Negative) Ur Phencyclidine Scrn (Negative) Ur Amphetamines Screen (Negative) U Methamphetamines Scrn (Negative) Ur MDMA Scrn (Ecstasy) (Negative) U Benzodiazepines Scrn (Negative) Urine Cocaine Screen (Negative) U Marijuana (THC) Screen (Negative) SARS-CoV-2 (PCR) Positive H (Negative) Blood Type Antibody Screen 09/08/21 09/08/21 09/08/21 Range/Units 14:35 14:35 14:35 WBC (4.5-11.0) X10^3/uL RBC (4.0-5.2) X10^6/uL Hgb (12.0-16.0) g/dL Hct (36-46) % MCV (80-100) fL MCH (26-34) PG MCHC (30-36) % RDW (11.6-14.8) % Plt Count (150-400) X10^3/uL Neut % (Auto) (50-75) % Lymph % (Auto) (25-40) % [place] % (Auto) (3-14) % Eos % (Auto) (2-4) % Baso % (Auto) (0-2) % Neut # (Auto) (9374-8371) /uL Lymph # (Auto) (2809-0224) /uL [place] # (Auto) (0-900) /uL Eos # (Auto) (0-450) /uL Baso # (Auto) (0-100) /uL PT (10.1-12.7) SECONDS INR (0.9-1.3) APTT (26.4-36.2) SECONDS Sodium (137-145) mmol/L Potassium (3.4-5.1) mmol/L Chloride (98-107) mmol/L Carbon Dioxide (22-32) mmol/L BUN (7-17) mg/dL Creatinine (0.52-1.04) mg/dL Estimated GFR (>60) mL/min BUN/Creatinine Ratio (6-22) Glucose (70-100) mg/dL Lactate 1.7 (0.7-2.1) mmol/L Calcium (8.4-10.2) mg/dL Total Bilirubin (0.2-1.3) mg/dL AST (14-36) IU/L ALT (<35) IU/L Alkaline Phosphatase (38-126) U/L Ammonia 10 (9-30) umol/L Total Creatine Kinase (30-135) U/L CK-MB (CK-2) (<2.37) ng/mL CK-MB (CK-2) Rel Index (1.5-5.0) % Troponin I (0.01-0.034) ng/mL Total Protein (6.3-8.2) g/dL Albumin (3.5-5.0) g/dL Globulin (1.7-4.1) g/dL Albumin/Globulin Ratio (1.0-2.8) Procalcitonin 0.45 (<0.5) ng/mL TSH (0.47-4.68) uIU/mL Prolactin (3.0-18.6) ng/mL Urine Color Urine Appearance Urine pH (4.5-8.0) Ur Specific [place] (1.000-1.035) Urine Protein (Negative) Urine Glucose (UA) (Negative) g/dL Urine Ketones (NEGATIVE) Urine Occult Blood (Negative) Urine Nitrate (Negative) Urine Bilirubin (NEGATIVE) Urine Urobilinogen (0.2) E.U./dL Ur Leukocyte Esterase (NEGATIVE) Urine RBC (0-5/HPF) Urine WBC (0-5/HPF) Ur Squamous Epith Cells (0-5/HPF) Amorphous Sediment Urine Bacteria (None) Ur Culture Indicated? U Opiates 300ng/mL cut (Negative) Ur Oxycodone Screen (Negative) Urine Methadone Screen (Negative) Ur Barbiturates Screen (Negative) U Tricyclic Antidepress (Negative) Ur Phencyclidine Scrn (Negative) Ur Amphetamines Screen (Negative) U Methamphetamines Scrn (Negative) Ur MDMA Scrn (Ecstasy) (Negative) U Benzodiazepines Scrn (Negative) Urine Cocaine Screen (Negative) U Marijuana (THC) Screen (Negative) SARS-CoV-2 (PCR) (Negative) Blood Type Antibody Screen 09/08/21 09/08/21 09/08/21 Range/Units 14:35 14:39 14:39 WBC (4.5-11.0) X10^3/uL RBC (4.0-5.2) X10^6/uL Hgb (12.0-16.0) g/dL Hct (36-46) % MCV (80-100) fL MCH (26-34) PG MCHC (30-36) % RDW (11.6-14.8) % Plt Count (150-400) X10^3/uL Neut % (Auto) (50-75) % Lymph % (Auto) (25-40) % [place] % (Auto) (3-14) % Eos % (Auto) (2-4) % Baso % (Auto) (0-2) % Neut # (Auto) (7800-3194) /uL Lymph # (Auto) (0251-0679) /uL [place] # (Auto) (0-900) /uL Eos # (Auto) (0-450) /uL Baso # (Auto) (0-100) /uL PT (10.1-12.7) SECONDS INR (0.9-1.3) APTT (26.4-36.2) SECONDS Sodium (137-145) mmol/L Potassium (3.4-5.1) mmol/L Chloride (98-107) mmol/L Carbon Dioxide (22-32) mmol/L BUN (7-17) mg/dL Creatinine (0.52-1.04) mg/dL Estimated GFR (>60) mL/min BUN/Creatinine Ratio (6-22) Glucose (70-100) mg/dL Lactate (0.7-2.1) mmol/L Calcium (8.4-10.2) mg/dL Total Bilirubin (0.2-1.3) mg/dL AST (14-36) IU/L ALT (<35) IU/L Alkaline Phosphatase (38-126) U/L Ammonia (9-30) umol/L Total Creatine Kinase (30-135) U/L CK-MB (CK-2) (<2.37) ng/mL CK-MB (CK-2) Rel Index (1.5-5.0) % Troponin I (0.01-0.034) ng/mL Total Protein (6.3-8.2) g/dL Albumin (3.5-5.0) g/dL Globulin (1.7-4.1) g/dL Albumin/Globulin Ratio (1.0-2.8) Procalcitonin (<0.5) ng/mL TSH 1.00 (0.47-4.68) uIU/mL Prolactin 9.2 (3.0-18.6) ng/mL Urine Color Urine Appearance Urine pH (4.5-8.0) Ur Specific [place] (1.000-1.035) Urine Protein (Negative) Urine Glucose (UA) (Negative) g/dL Urine Ketones (NEGATIVE) Urine Occult Blood (Negative) Urine Nitrate (Negative) Urine Bilirubin (NEGATIVE) Urine Urobilinogen (0.2) E.U./dL Ur Leukocyte Esterase (NEGATIVE) Urine RBC (0-5/HPF) Urine WBC (0-5/HPF) Ur Squamous Epith Cells (0-5/HPF) Amorphous Sediment Urine Bacteria (None) Ur Culture Indicated? U Opiates 300ng/mL cut (Negative) Ur Oxycodone Screen (Negative) Urine Methadone Screen (Negative) Ur Barbiturates Screen (Negative) U Tricyclic Antidepress (Negative) Ur Phencyclidine Scrn (Negative) Ur Amphetamines Screen (Negative) U Methamphetamines Scrn (Negative) Ur MDMA Scrn (Ecstasy) (Negative) U Benzodiazepines Scrn (Negative) Urine Cocaine Screen (Negative) U Marijuana (THC) Screen (Negative) SARS-CoV-2 (PCR) (Negative) Blood Type O Positive Antibody Screen Negative 09/08/21 09/08/21 09/08/21 Range/Units 14:45 15:16 16:05 WBC (4.5-11.0) X10^3/uL RBC (4.0-5.2) X10^6/uL Hgb (12.0-16.0) g/dL Hct (36-46) % MCV (80-100) fL MCH (26-34) PG MCHC (30-36) % RDW (11.6-14.8) % Plt Count (150-400) X10^3/uL Neut % (Auto) (50-75) % Lymph % (Auto) (25-40) % [place] % (Auto) (3-14) % Eos % (Auto) (2-4) % Baso % (Auto) (0-2) % Neut # (Auto) (7975-3696) /uL Lymph # (Auto) (6099-1175) /uL [place] # (Auto) (0-900) /uL Eos # (Auto) (0-450) /uL Baso # (Auto) (0-100) /uL PT (10.1-12.7) SECONDS INR (0.9-1.3) APTT (26.4-36.2) SECONDS Sodium 137 (137-145) mmol/L Potassium 3.9 (3.4-5.1) mmol/L Chloride 100 (98-107) mmol/L Carbon Dioxide 33 H (22-32) mmol/L BUN 10 (7-17) mg/dL Creatinine 0.64 (0.52-1.04) mg/dL Estimated GFR > 60.0 (>60) mL/min BUN/Creatinine Ratio 15.6 (6-22) Glucose 166 H (70-100) mg/dL Lactate (0.7-2.1) mmol/L Calcium 8.7 (8.4-10.2) mg/dL Total Bilirubin 1.4 H (0.2-1.3) mg/dL AST 97 H (14-36) IU/L ALT 69 H (<35) IU/L Alkaline Phosphatase 374 H D (38-126) U/L Ammonia (9-30) umol/L Total Creatine Kinase 202 H (30-135) U/L CK-MB (CK-2) 2.69 H (<2.37) ng/mL CK-MB (CK-2) Rel Index 1.3 L (1.5-5.0) % Troponin I < 0.012 (0.01-0.034) ng/mL Total Protein 6.8 (6.3-8.2) g/dL Albumin 3.3 L (3.5-5.0) g/dL Globulin 3.5 (1.7-4.1) g/dL Albumin/Globulin Ratio 0.9 L (1.0-2.8) Procalcitonin (<0.5) ng/mL TSH (0.47-4.68) uIU/mL Prolactin (3.0-18.6) ng/mL Urine Color Yellow Urine Appearance Clear Urine pH 7.5 (4.5-8.0) Ur Specific [place] 1.010 (1.000-1.035) Urine Protein Trace H (Negative) Urine Glucose (UA) Negative (Negative) g/dL Urine Ketones Negative (NEGATIVE) Urine Occult Blood Trace-intact (Negative) Urine Nitrate Negative (Negative) Urine Bilirubin Negative (NEGATIVE) Urine Urobilinogen 0.2 (0.2) E.U./dL Ur Leukocyte Esterase Negative (NEGATIVE) Urine RBC 1-5/hpf (0-5/HPF) Urine WBC 1-5/hpf (0-5/HPF) Ur Squamous Epith Cells 1-5 /hpf (0-5/HPF) Amorphous Sediment 1+ Urine Bacteria Few (2-10) H (None) Ur Culture Indicated? Specimen cultured U Opiates 300ng/mL cut Negative (Negative) Ur Oxycodone Screen Negative (Negative) Urine Methadone Screen Negative (Negative) Ur Barbiturates Screen Negative (Negative) U Tricyclic Antidepress Positive H (Negative) Ur Phencyclidine Scrn Negative (Negative) Ur Amphetamines Screen Negative (Negative) U Methamphetamines Scrn Negative (Negative) Ur MDMA Scrn (Ecstasy) Negative (Negative) U Benzodiazepines Scrn Positive H (Negative) Urine Cocaine Screen Negative (Negative) U Marijuana (THC) Screen Positive H (Negative) SARS-CoV-2 (PCR) (Negative) Blood Type Antibody Screen Point of Care Testing Glucose POC 171 Imaging Data Chest x-ray: Radiologist's Impression: Cardiomegaly. Low lung volumes. No pleural effusions or pneumothorax. CT scan - head: Radiologist's Impression: Unremarkable brain CT without intracranial hemorrhage or mass effect. CTA head and neck:: Radiologist's Impression: No acute vascular process. ECG Data Attestation: I personally reviewed and interpreted this ECG as follows: (Normal sinus rhythm rate 64 beats per minute. No ectopy. No acute ST T wave changes. Normal intervals.) Critical Care Time Critical Care Time Critical Care Time: Yes Total Critical Care Time: 100 Attestation: Critical care time an occluded the initial patient assessment, review of multiple medical records, review of lab, EKG and radiology data. The case was discussed with the patient's . Neurology was consulted. The admitting hospitalist was soft consulted. Discharge Plan Departure Patient Disposition: Admitted As Inpatient Clinical Impression: Acute alteration in mental status, Chronic pain syndrome, Insulin dependent diabetes mellitus, Hypersomnia, Bipolar 1 disorder, Chronic pancreatitis, Opiate dependence, continuous, Obstructive sleep apnea of adult, Anemia, COVID-19 Admit Date/Time: 09/08/21 17:11 Admit Provider: Akila Braun
[2021-09-08 15:19] LABS: Procalcitonin 0.45 ng/mL (<0.5)
[2021-09-08 15:25] LABS: Appearance Urine UA CLEAR; Bilirubin Urine UA NEGATIVE (NEGATIVE); Color Urine UA YELLOW; Glucose Urine UA NEGATIVE (Negative); Ketones Urine UA NEGATIVE (NEGATIVE); Leukocyte Esterase Urine UA NEGATIVE (NEGATIVE); Nitrite Urine UA NEGATIVE (Negative); Occult Blood Urine UA TRACE-INTACT (Negative); Protein Urine UA TRACE (Negative); Urobilinogen Urine UA 0.2 E.U./dL (0.2)
--- NOTE | 2021-09-08 15:25 | PC.NURSE ---
Pt repeating the word okay, bending both legs. 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
[2021-09-08 15:33] LABS: pH Urine UA 7.5 (4.5-8.0)
[2021-09-08 15:37] LABS: Amorphous Sediment Urine 1+; Bacteria Urine Few (2-10); Culture Indicated Urine Specimen Cultured; RBC Urine 1-5/HPF (0-5/HPF); Squamous Epithelial Cell Urine 1-5 /HPF (0-5/HPF); WBC Urine 1-5/HPF (0-5/HPF)
[2021-09-08] MEDS: LORazepam 2 MG/ML INJ (15:39)
[2021-09-08 16:55] LABS: Alanine Aminotransferase 69 IU/L (<35); Albumin 3.3 g/dL (3.5-5.0); Albumin Globulin Ratio 0.9 (1.0-2.8); Alkaline Phosphatase 374 U/L (38-126); Aspartate Aminotransferase 97 IU/L (14-36); BUN Creatinine Ratio 15.6 (6-22); Bilirubin Total 1.4 mg/dL (0.2-1.3); Blood Urea Nitrogen 10 mg/dL (7-17); Calcium 8.7 mg/dL (8.4-10.2); Carbon Dioxide 33 mmol/L (22-32); Chloride 100 mmol/L (98-107); Creatine Kinase 202 U/L (30-135); Estimated Glomerular Filt Rate > 60.0 mL/min (>60); Globulin 3.5 g/dL (1.7-4.1); Glucose 166 mg/dL (70-100); Potassium 3.9 mmol/L (3.4-5.1); Sodium 137 mmol/L (137-145); Total Protein 6.8 g/dL (6.3-8.2)
[2021-09-08 17:08] LABS: Troponin I < 0.012 ng/mL (0.01-0.034)
--- NOTE | 2021-09-08 17:09 | DI.MRI.S_ITS ---
PROCEDURE: MR HEAD/BRAIN WO CON INDICATIONS: mental status changes. TECHNIQUE: Non-contrast axial T1 spin echo, axial T2 fast spin echo, sagittal and axial FLAIR, coronal T2 fast spin echo, axial gradient echo, axial diffusion and ADC through the brain. COMPARISON: None. FINDINGS: Image quality: Excellent. CSF spaces: Ventricles appear symmetric in size and shape. Basal cisterns are patent. No extra-axial fluid collections. Brain: No intracranial bleeds or mass effects. There is minimal cerebral volume loss for age. There are minimal periventricular and deep white matter chronic small vessel ischemic changes. Brainstem appears normal. Diffusion-weighted images show no acute ischemic insults. No chronic ischemic insults. Normal intravascular flow voids are present. Skull and face: Calvarial bone marrow is normal in signal. Orbits are normal. Sinuses: Sinuses and mastoids are clear. IMPRESSION: MRI brain without acute intracranial abnormalities. No evidence for acute cerebral infarction. Dictated by: Joey Huntley M.D. on 09/09/2021 at 14:28 Approved by: Joey Huntley M.D. on 09/09/2021 at 14:29
[2021-09-08 17:10] LABS: CKMB % Relative Index 1.3 % (1.5-5.0); Creatine Kinase MB 2.69 ng/mL (<2.37); HEMOLYSIS 41 (0-50)
[2021-09-08 17:45] LABS: Prolactin 9.2 ng/mL (3.0-18.6)
[2021-09-08] MEDS: ASPIRIN 300 MG SUPP PR (18:30)
--- NOTE | 2021-09-08 19:37 | PC.NURSE ---
1850 Pt arrived to floor unable to speak sentences, nodding yes and no when asked simple questions. Spouse at bedside. COVID + isolation precautions in place. Skin check completed with Amy HYDE, report to Callie HYDE
[2021-09-08 20:26] LABS: Magnesium 1.7 mg/dL (1.6-2.3)
[2021-09-08] MEDS: DEXTROSE 5%-0.9% NS 1,000 ML 60 ML IV (20:33)
[2021-09-08] MEDS: LABETALOL 20 MG/4 ML SYRINGE 10 MG IV (22:01)
[2021-09-08] MEDS: ONDANSETRON 4 MG/2 ML INJ IV (22:14)
[2021-09-08] MEDS: NICARDIPINE 25 MG in SODIUM CHLORIDE 0.9% 240 ML 50 ML IV (23:52)
--- NOTE | 2021-09-08 23:53 | PM.CN.EICU ---
History of Present Illness Consult details Chief complaint: unresponsive :: This patient was seen in the Intensive Care Unit via real time interactive two-way audiovisual telecommunication. Narrative: Presented with unresponsiveness/Code Stroke. NCHCT (-). Teleneurology consulted. Did not meet tPA criteria. 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 Takes Seroquel, Fluoxetine, sublingual ketamine for her psychiatric/chronic pain issues. She was diagnosed at home with COVID-19 about 1 week ago. Tested (+) again in ED Hospitalized 09/02- for intractable nausea/vomiting with (-) workup. is unsure whether she has been taking her Lamictal. NCHCT (-). Hypertensive in ICU; nicardipine started. Brain MRI/2-D echo ordered. [facility] Medical History Acute dehydration Acute infection of right ear Acute kidney injury Anxiety Arm pain Arthritis Bipolar 1 disorder Chronic pain syndrome Chronic pancreatitis Episode of syncope Fracture of right foot Herniated nucleus pulposus, L4-5 History of pulmonary embolism Hypercholesterolemia with hypertriglyceridemia Hypersomnia Hypertension Insulin dependent diabetes mellitus Intractable vomiting with nausea Major depressive disorder precision dyer associated with adverse incidents Neuropathy, diabetic Nonalcoholic steatohepatitis (HERRING) Obesity (BMI 30-39.9) Obstructive sleep apnea of adult Opiate dependence, continuous Renal insufficiency Snoring Type 2 diabetes mellitus Surgical History Gastrocnemius equinus of right lower extremity H/O hysterectomy for benign disease History of appendectomy History of cholecystectomy Lumbar post-laminectomy syndrome Right humeral fracture Family History Father COPD (chronic obstructive pulmonary disease) Mother Hypertension Sister Fibromyalgia Social History marital status: details: rasheed Benjaminip household members: spouse lives independently: Yes caregiver/support person: No occupational status: unemployed Smoking Status: Never smoker alcohol intake: former substance use type: marijuana Current Medications Current Medications Medications: Home Medications fenofibrate 160 mg tablet 160 mg PO DAILY #0 09/19/17 [History Confirmed 09/08/21] insulin aspart U-100 100 unit/mL subcutaneous solution (Novolog U-100 Insulin aspart) 10 - 25 unit SQ TIDAC #0 09/19/17 [History Confirmed 09/08/21] metoclopramide HCl 5 mg tablet (Reglan) 10 mg PO QID PRN #0 09/19/17 [History Confirmed 09/08/21] metoprolol succinate 100 mg tablet,extended release 24 hr (Toprol XL) 100 mg PO DAILY #0 09/19/17 [History Confirmed 09/08/21] quetiapine 400 mg tablet (Seroquel) 400 mg PO BEDTIME #0 09/19/17 [History Confirmed 09/08/21] fluoxetine 20 mg capsule 60 mg PO DAILY 10/10/18 [History Confirmed 09/08/21] omega-3 acid ethyl esters 1 gram capsule 2 cap PO BID 04/17/19 [History Confirmed 09/08/21] tramadol 50 mg tablet 50 mg PO Q6-8H PRN #20 tab 01/05/20 [Rx Confirmed 09/08/21] atorvastatin 80 mg tablet 80 mg PO DAILY 01/06/20 [History Confirmed 09/08/21] buprenorphine 2 mg-naloxone 0.5 mg sublingual film 1 film SUBLINGUAL DAILY 01/06/20 [History Confirmed 09/08/21] lisinopril 5 mg tablet 5 mg PO DAILY 01/06/20 [History Confirmed 09/08/21] metformin 500 mg tablet,extended release 24 hr 500 mg PO QAM 01/06/20 [History Confirmed 09/08/21] valacyclovir 500 mg tablet 500 mg PO DAILY PRN 01/06/20 [History Confirmed 09/08/21] zolpidem 12.5 mg tablet,extended release,multiphase 12.5 mg PO BEDTIME 01/06/20 [History Confirmed 09/08/21] lorazepam 2 mg tablet 2 mg PO TID #0 tab 01/08/20 [Rx Confirmed 09/08/21] ondansetron 4 mg disintegrating tablet 4 mg PO Q4H PRN #20 tab 05/26/20 [Rx Confirmed 09/08/21] cholecalciferol (vitamin D3) 50 mcg (2,000 unit) capsule 50 mcg PO DAILY 11/28/20 [History Confirmed 09/08/21] dicyclomine 20 mg tablet 20 mg PO QID PRN 11/28/20 [History Confirmed 09/08/21] insulin glargine 100 unit/mL subcutaneous solution (Lantus U-100 Insulin) 30 unit SUBCUT BID #0 ml 11/28/20 [History Confirmed 09/08/21] ketamine 100 mg sublingual narinder 100 mg SUBLINGUAL DAILY tab 11/28/20 [History Confirmed 09/08/21] lamotrigine 25 mg tablet 150 mg PO DAILY tab 11/28/20 [History Confirmed 09/08/21] [id number] 36,000-114,000-180,000 unit capsule,delay rel (Creon) 2 cap PO DAILY cap 11/28/20 [History Confirmed 09/08/21] quetiapine 100 mg tablet (Seroquel) 100 mg PO BID PRN #0 tab 11/28/20 [History Confirmed 09/08/21] tizanidine 2 mg tablet 4 mg PO Q8H PRN tab 11/28/20 [History Confirmed 09/08/21] vitamin B complex 1 tab PO DAILY 11/28/20 [History Confirmed 09/08/21] methylphenidate HCl 10 mg tablet 10 mg PO TID #90 tab 08/17/21 [Rx Confirmed 09/08/21] amlodipine 10 mg tablet 10 mg PO DAILY 09/08/21 [History Confirmed 09/08/21] Visit Medications (administered) Generic Name Dose Route Start Last Admin Trade Name Freq PRN Reason Stop Dose Admin Dextrose/Sodium Chloride 1,000 mls @ 60 mls/hr 09/08/21 20:00 09/08/21 20:33 Dextrose 5%-0.9% Ns IV 60 mls/hr CONT YARI Administration Nicardipine HCl 25 mg/ Sodium 250 mls @ 50 mls/hr 09/08/21 23:30 09/08/21 23:52 Chloride IV 5 mg/hr TITRATE YARI 50 mls/hr Administration Protocol 5 MG/HR Insulin Human Lispro 0 unit 09/08/21 21:00 09/08/21 22:00 Insulin Lispro 100 Unit/Ml 3ml Vial SUBCUT Not Given ACHS YARI Protocol Labetalol HCl 10 mg 09/08/21 19:58 09/08/21 22:01 Labetalol 20 Mg/4 Ml Syringe IV 10 mg Q4HR PRN Administration Hypertension Naloxone HCl 0.4 mg 09/08/21 15:02 09/08/21 15:08 Naloxone 0.4 Mg/Ml Vial IV 0.4 mg Q2MIN PRN Administration Opiate Reversal Ondansetron HCl 4 mg 09/08/21 21:00 09/08/21 22:14 Ondansetron 4 Mg/2 Ml Inj IV 4 mg Q4HR YARI Administration Exam Vital Signs (past 8 hours): - 09/08/21 16:00 09/08/21 16:01 09/08/21 16:10 Temperature 98.8 F 98.8 F 98.8 F Pulse Rate 80 81 76 Respiratory Rate 19 25 H 27 H Blood Pressure 212/153 H Pulse Oximetry 99 98 98 09/08/21 16:20 09/08/21 16:21 09/08/21 16:30 Temperature 99.1 F 99.1 F 99.3 F Pulse Rate 75 76 76 Respiratory Rate 18 22 20 Blood Pressure 173/105 H 151/76 H Pulse Oximetry 99 99 97 09/08/21 16:40 09/08/21 16:50 09/08/21 17:00 Temperature 99.3 F 99.3 F 99.3 F Pulse Rate 79 79 75 Respiratory Rate 20 18 18 Blood Pressure 149/74 H 155/96 H 159/84 H Pulse Oximetry 99 99 97 09/08/21 17:10 09/08/21 17:20 09/08/21 17:30 Temperature 99.3 F 99.3 F 99.3 F Pulse Rate 71 70 69 Respiratory Rate 18 18 18 Blood Pressure 154/86 H 144/81 H 145/79 H Pulse Oximetry 97 96 96 09/08/21 17:34 09/08/21 17:40 09/08/21 17:41 Temperature 99.1 F 99.1 F Pulse Rate 76 80 78 Respiratory Rate 26 H 18 14 Blood Pressure 195/92 H Pulse Oximetry 99 97 97 09/08/21 17:50 09/08/21 18:00 09/08/21 19:53 Temperature 99.1 F 99.0 F 98.2 F Pulse Rate 77 77 78 Respiratory Rate 25 H 22 18 Blood Pressure 188/86 H 174/85 H 187/99 H Pulse Oximetry 97 96 96 02/18/22 22:01 09/08/21 23:01 09/08/21 23:02 Temperature 98.4 F Pulse Rate 83 85 85 Respiratory Rate 19 Blood Pressure 201/99 H 204/95 H 225/107 H Pulse Oximetry 98 09/08/21 23:06 Temperature 98.4 F Pulse Rate 86 Respiratory Rate 25 H Blood Pressure Pulse Oximetry 99 Oxygen Delivery Method Room Air Oxygen Flow Rate 0 Const General: other (no distress) Objective Labs Result Diagrams: 09/08/21 14:35 09/08/21 16:05 Labs: Laboratory Results - last 24 hr 09/08/21 09/08/21 09/08/21 14:22 14:35 14:35 WBC 5.3 RBC 3.05 L Hgb 8.4 L Hct 24.6 L MCV 80.7 MCH 27.5 MCHC 34.0 RDW 14.5 Plt Count 314 Neut % (Auto) 77.6 H Lymph % (Auto) 12.0 L [place] % (Auto) 9.3 Eos % (Auto) 0.9 L Baso % (Auto) 0.2 Neut # (Auto) 4100 Lymph # (Auto) 600 L [place] # (Auto) 500 Eos # (Auto) 0 Baso # (Auto) 0 PT 15.2 H INR 1.3 APTT 36 Sodium Potassium Chloride Carbon Dioxide BUN Creatinine Estimated GFR BUN/Creatinine Ratio Glucose Lactate Calcium Magnesium Total Bilirubin AST ALT Alkaline Phosphatase Ammonia Total Creatine Kinase CK-MB (CK-2) CK-MB (CK-2) Rel Index Troponin I Total Protein Albumin Globulin Albumin/Globulin Ratio Procalcitonin TSH Prolactin Urine Color Urine Appearance Urine pH Ur Specific [place] Urine Protein Urine Glucose (UA) Urine Ketones Urine Occult Blood Urine Nitrate Urine Bilirubin Urine Urobilinogen Ur Leukocyte Esterase Urine RBC Urine WBC Ur Squamous Epith Cells Amorphous Sediment Urine Bacteria Ur Culture Indicated? U Opiates 300ng/mL cut Ur Oxycodone Screen Urine Methadone Screen Ur Barbiturates Screen U Tricyclic Antidepress Ur Phencyclidine Scrn Ur Amphetamines Screen U Methamphetamines Scrn Ur MDMA Scrn (Ecstasy) U Benzodiazepines Scrn Urine Cocaine Screen U Marijuana (THC) Screen SARS-CoV-2 (PCR) Positive H Blood Type Antibody Screen 09/08/21 09/08/21 09/08/21 14:35 14:35 14:35 WBC RBC Hgb Hct MCV MCH MCHC RDW Plt Count Neut % (Auto) Lymph % (Auto) [place] % (Auto) Eos % (Auto) Baso % (Auto) Neut # (Auto) Lymph # (Auto) [place] # (Auto) Eos # (Auto) Baso # (Auto) PT INR APTT Sodium Potassium Chloride Carbon Dioxide BUN Creatinine Estimated GFR BUN/Creatinine Ratio Glucose Lactate 1.7 Calcium Magnesium Total Bilirubin AST ALT Alkaline Phosphatase Ammonia 10 Total Creatine Kinase CK-MB (CK-2) CK-MB (CK-2) Rel Index Troponin I Total Protein Albumin Globulin Albumin/Globulin Ratio Procalcitonin 0.45 TSH Prolactin Urine Color Urine Appearance Urine pH Ur Specific [place] Urine Protein Urine Glucose (UA) Urine Ketones Urine Occult Blood Urine Nitrate Urine Bilirubin Urine Urobilinogen Ur Leukocyte Esterase Urine RBC Urine WBC Ur Squamous Epith Cells Amorphous Sediment Urine Bacteria Ur Culture Indicated? U Opiates 300ng/mL cut Ur Oxycodone Screen Urine Methadone Screen Ur Barbiturates Screen U Tricyclic Antidepress Ur Phencyclidine Scrn Ur Amphetamines Screen U Methamphetamines Scrn Ur MDMA Scrn (Ecstasy) U Benzodiazepines Scrn Urine Cocaine Screen U Marijuana (THC) Screen SARS-CoV-2 (PCR) Blood Type Antibody Screen 09/08/21 09/08/21 09/08/21 14:35 14:39 14:39 WBC RBC Hgb Hct MCV MCH MCHC RDW Plt Count Neut % (Auto) Lymph % (Auto) [place] % (Auto) Eos % (Auto) Baso % (Auto) Neut # (Auto) Lymph # (Auto) [place] # (Auto) Eos # (Auto) Baso # (Auto) PT INR APTT Sodium Potassium Chloride Carbon Dioxide BUN Creatinine Estimated GFR BUN/Creatinine Ratio Glucose Lactate Calcium Magnesium Total Bilirubin AST ALT Alkaline Phosphatase Ammonia Total Creatine Kinase CK-MB (CK-2) CK-MB (CK-2) Rel Index Troponin I Total Protein Albumin Globulin Albumin/Globulin Ratio Procalcitonin TSH 1.00 Prolactin 9.2 Urine Color Urine Appearance Urine pH Ur Specific [place] Urine Protein Urine Glucose (UA) Urine Ketones Urine Occult Blood Urine Nitrate Urine Bilirubin Urine Urobilinogen Ur Leukocyte Esterase Urine RBC Urine WBC Ur Squamous Epith Cells Amorphous Sediment Urine Bacteria Ur Culture Indicated? U Opiates 300ng/mL cut Ur Oxycodone Screen Urine Methadone Screen Ur Barbiturates Screen U Tricyclic Antidepress Ur Phencyclidine Scrn Ur Amphetamines Screen U Methamphetamines Scrn Ur MDMA Scrn (Ecstasy) U Benzodiazepines Scrn Urine Cocaine Screen U Marijuana (THC) Screen SARS-CoV-2 (PCR) Blood Type O Positive Antibody Screen Negative 09/08/21 09/08/21 09/08/21 14:39 14:45 15:16 WBC RBC Hgb Hct MCV MCH MCHC RDW Plt Count Neut % (Auto) Lymph % (Auto) [place] % (Auto) Eos % (Auto) Baso % (Auto) Neut # (Auto) Lymph # (Auto) [place] # (Auto) Eos # (Auto) Baso # (Auto) PT INR APTT Sodium Potassium Chloride Carbon Dioxide BUN Creatinine Estimated GFR BUN/Creatinine Ratio Glucose Lactate Calcium Magnesium 1.7 Total Bilirubin AST ALT Alkaline Phosphatase Ammonia Total Creatine Kinase CK-MB (CK-2) CK-MB (CK-2) Rel Index Troponin I Total Protein Albumin Globulin Albumin/Globulin Ratio Procalcitonin TSH Prolactin Urine Color Yellow Urine Appearance Clear Urine pH 7.5 Ur Specific [place] 1.010 Urine Protein Trace H Urine Glucose (UA) Negative Urine Ketones Negative Urine Occult Blood Trace-intact Urine Nitrate Negative Urine Bilirubin Negative Urine Urobilinogen 0.2 Ur Leukocyte Esterase Negative Urine RBC 1-5/hpf Urine WBC 1-5/hpf Ur Squamous Epith Cells 1-5 /hpf Amorphous Sediment 1+ Urine Bacteria Few (2-10) H Ur Culture Indicated? Specimen cultured U Opiates 300ng/mL cut Negative Ur Oxycodone Screen Negative Urine Methadone Screen Negative Ur Barbiturates Screen Negative U Tricyclic Antidepress Positive H Ur Phencyclidine Scrn Negative Ur Amphetamines Screen Negative U Methamphetamines Scrn Negative Ur MDMA Scrn (Ecstasy) Negative U Benzodiazepines Scrn Positive H Urine Cocaine Screen Negative U Marijuana (THC) Screen Positive H SARS-CoV-2 (PCR) Blood Type Antibody Screen 09/08/21 16:05 WBC RBC Hgb Hct MCV MCH MCHC RDW Plt Count Neut % (Auto) Lymph % (Auto) [place] % (Auto) Eos % (Auto) Baso % (Auto) Neut # (Auto) Lymph # (Auto) [place] # (Auto) Eos # (Auto) Baso # (Auto) PT INR APTT Sodium 137 Potassium 3.9 Chloride 100 Carbon Dioxide 33 H BUN 10 Creatinine 0.64 Estimated GFR > 60.0 BUN/Creatinine Ratio 15.6 Glucose 166 H Lactate Calcium 8.7 Magnesium Total Bilirubin 1.4 H AST 97 H ALT 69 H Alkaline Phosphatase 374 H D Ammonia Total Creatine Kinase 202 H CK-MB (CK-2) 2.69 H CK-MB (CK-2) Rel Index 1.3 L Troponin I < 0.012 Total Protein 6.8 Albumin 3.3 L Globulin 3.5 Albumin/Globulin Ratio 0.9 L Procalcitonin TSH Prolactin Urine Color Urine Appearance Urine pH Ur Specific [place] Urine Protein Urine Glucose (UA) Urine Ketones Urine Occult Blood Urine Nitrate Urine Bilirubin Urine Urobilinogen Ur Leukocyte Esterase Urine RBC Urine WBC Ur Squamous Epith Cells Amorphous Sediment Urine Bacteria Ur Culture Indicated? U Opiates 300ng/mL cut Ur Oxycodone Screen Urine Methadone Screen Ur Barbiturates Screen U Tricyclic Antidepress Ur Phencyclidine Scrn Ur Amphetamines Screen U Methamphetamines Scrn Ur MDMA Scrn (Ecstasy) U Benzodiazepines Scrn Urine Cocaine Screen U Marijuana (THC) Screen SARS-CoV-2 (PCR) Blood Type Antibody Screen Assessment & Plan Assessment and plan (1) Unresponsiveness: Problem details: Differental diagnosis is large-includes but not limited to occult CVA (doubt), occult seizure, medication abuse/misuse, polypharmacy Status: Acute Plan: -Agree with brain MRI -Would confirm her outpatient medications and review [facility] prescription drug database if not done already -May need EEG; in intermin, continue Lamictal. I have ordered PRN Ativan 1 mg q4H PRN anxietyto prevent a withdrawal syndrome as well as Ativan 1 mg PRN q5 min x3 PRN seizure in case she actually has a seizure (2) Hypertensive urgency: Status: Acute Plan: -Nicardipine infusion pending resumption of her PO meds (3) Polysubstance dependence: Status: Acute Plan: -See problem # 1 (4) Chronic pain: Status: Acute Plan: -See problem # 1 (5) Insulin dependent diabetes mellitus: Status: Chronic Plan: -Insulin correction scale (6) Nausea & vomiting: Status: Acute Plan: -PRN antiemetics -Of note, urine tox is (+) for THC. Please obtain more history about this -- she may have THC-induced hyperemesis syndrome
[2021-09-09] VITALS (116 sets, daily range): BP systolic 138–206; BP diastolic 71–115; PULSE 72–119; RESP 7–44; TEMP 36.1–37; O2SAT 96–100
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
[2021-09-09 01:29] LABS: Ketones (Beta-Hydroxybutyrate) 0.09 mmol/L (<0.27)
[2021-09-09 01:35] LABS: Clostridium Difficile Tox PCR Negative for C. diff (Negative)
[2021-09-09] MEDS: LORazepam 2 MG/ML INJ 1 MG IV (01:58)
[2021-09-09] MEDS: ONDANSETRON 4 MG/2 ML INJ IV ×4 (01:59→12:36)
[2021-09-09] MEDS: NICARDIPINE 25 MG in SODIUM CHLORIDE 0.9% 240 ML 125 ML IV (02:10)
--- NOTE | 2021-09-09 03:44 | PC.NURSE ---
Addendum entered by Callie Cruz R.N. 09/09/21 06:03: MILADY Ahumada Notified of serum glucose 263, and insulin ordered ac and hs. Patient remains NPO due to nausea and dry heaving. Orders received to hold insulin presently. Addendum entered by Callie Cruz R.N. 09/09/21 05:32: Nicardapine drip titrated down to 7.5 mg/hr SBP 138/78, HR 105. Patient is less disoriented this am with clearer thought content. States that this is 09/08/21. MILADY Ahumada notified of patient's guaiac negative stool and stool negative for C diff. Discussed that Nicardipine drip now at 7.5 mg/hr. No new orders received. Original Note: MOY Ahumada aware of patient's BP persistently above 180 after dose of IV Labetolol. notified of patient's BP 225/107. Orders received for a Nicardipine drip and same initiated. Titrated up to 15 mg/hr briefly and then titrated down to 12.5 mg/hr; SBP 150-160s. HR 80-100, SR-ST. In last hour Nicardipine titrated down to 10 mg/hr. Patient initially had NIH score of 8 and improving to NIH of 4. Patient asking frequently for Ketamine. Discussed that this has not been ordered due to patient's decreased level of consciousness on admission, patient then requesting Propofol, specifically. Patient now able to resist gravity with left arm and leg. Patient is having expressive aphasia with word finding difficulty. Patient turns from left side to back frequently. Patient is nauseated with small amount of green emesis, after drinking H20 and passing swallow screen. Medicated with Zofran and Lorazepam per EMAR. Patient had frequent loose stools with stool specimen sent to lab for cultures.
[2021-09-09 04:35] LABS: Add Manual Diff / Slide Review NO; Basophils Absolute Auto 0 /uL (0-100); Basophils Percent Auto 0.3 % (0-2); Eosinophils Absolute Auto 0 /uL (0-450); Eosinophils Percent Auto 0.1 % (2-4); Hematocrit 33.9 % (36-46); Hemoglobin 11.7 g/dL (12.0-16.0); Lymphocytes Absolute Auto 500 /uL (1100-4500); Lymphocytes Percent Auto 6.7 % (25-40); Mean Corpuscular HGB Conc 34.4 % (30-36); Mean Corpuscular Hemoglobin 27.6 PG (26-34); Mean Corpuscular Volume 80.4 fL (80-100); Monocytes Absolute Auto 200 /uL (0-900); Monocytes Percent Auto 3.5 % (3-14); Neutrophils Absolute Auto 6300 /uL (1500-7000); Neutrophils Percent Auto 89.4 % (50-75); Platelet Count 472 X10^3/uL (150-400); Red Blood Cell Count 4.22 X10^6/uL (4.0-5.2); Red Cell Distribution Width 14.7 % (11.6-14.8)
[2021-09-09 04:36] LABS: INR 1.3 (0.9-1.3); Prothrombin Time 14.8 SECONDS (10.1-12.7)
[2021-09-09 04:40] LABS: BUN Creatinine Ratio 16.3 (6-22); Blood Urea Nitrogen 7 mg/dL (7-17); Calcium 9.5 mg/dL (8.4-10.2); Carbon Dioxide 28 mmol/L (22-32); Chloride 100 mmol/L (98-107); Estimated Glomerular Filt Rate > 60.0 mL/min (>60); Glucose 263 mg/dL (70-100); HEMOLYSIS < 15 (0-50); Potassium 3.3 mmol/L (3.4-5.1); Sodium 139 mmol/L (137-145)
[2021-09-09 04:53] LABS: Troponin I 0.026 ng/mL (0.01-0.034)
[2021-09-09] MEDS: NICARDIPINE 25 MG in SODIUM CHLORIDE 0.9% 240 ML 100 ML IV ×2 (05:07→07:14)
[2021-09-09 07:39] LABS: Phosphorous 2.6 mg/dL (2.5-4.5)
[2021-09-09] MEDS: ENOXAPARIN 40 MG/0.4 ML SYRINGE SUBCUT (08:55)
[2021-09-09] MEDS: POTASSIUM CHLORIDE IN WATER 10 MEQ/100 ML PIGGYBACK 100 MEQ IV ×4 (08:55→11:55)
[2021-09-09] MEDS: MAGNESIUM SULFATE 2 GM/50 ML PIGGYBACK IV (08:55)
[2021-09-09] MEDS: FLUoxetine 20 MG CAPSULE 60 MG PO (08:57)
[2021-09-09] MEDS: METOPROLOL ER 50 MG TABLET 100 MG PO (08:57)
[2021-09-09] MEDS: lamoTRIgine 100 MG TABLET 150 MG PO (08:58)
[2021-09-09] MEDS: lisinopriL 5 MG TABLET PO (08:58)
[2021-09-09] MEDS: AMLODIPINE 5 MG TABLET 10 MG PO (08:59)
[2021-09-09] MEDS: Lipase-Protease-Amylase [Creon] 36,000-114,000- 180,000 unit cap 2 EACH PO (09:05)
[2021-09-09] MEDS: BUPRENORPHINE/NALOXONE 8MG/2MG 1 TAB SL (09:18)
--- NOTE | 2021-09-09 09:36 | P.TELICUPN_ITS ---
Subjective Subjective :: This patient was seen in the Intensive Care Unit via real time interactive two- way audiovisual telecommunication. No acute issues overnight. Per RN and hospitalist report, patient is awake and following commands. No slurred speech or weakness noted. On home SL ketamine 100 mg every 2-3 hours as needed but hospital does not carry SL ketamine and hospital policy does not allow COVID positive family to drop off home meds. Current Medications Current Medications Medications: Home Medications fenofibrate 160 mg tablet 160 mg PO DAILY #0 09/19/17 [History Confirmed 09/09] insulin aspart U-100 100 unit/mL subcutaneous solution (Novolog U-100 Insulin aspart) 10 - 25 unit SQ TIDAC #0 09/19/17 [History Confirmed 09/08/21] metoclopramide HCl 5 mg tablet (Reglan) 10 mg PO QID PRN #0 09/19/17 [History Confirmed 09/08/21] metoprolol succinate 100 mg tablet,extended release 24 hr (Toprol XL) 100 mg PO DAILY #0 09/19/17 [History Confirmed 09/09/21] quetiapine 400 mg tablet (Seroquel) 400 mg PO BEDTIME #0 09/19/17 [History Confirmed 09/09/21] fluoxetine 20 mg capsule 60 mg PO DAILY 10/10/18 [History Confirmed 09/09/21] omega-3 acid ethyl esters 1 gram capsule 2 cap PO BID 04/17/19 [History Confirmed 09/08/21] tramadol 50 mg tablet 50 mg PO Q6-8H PRN #20 tab 01/05/20 [Rx Confirmed 09/08/21] atorvastatin 80 mg tablet 80 mg PO DAILY 01/06/20 [History Confirmed 09/08/21] buprenorphine 2 mg-naloxone 0.5 mg sublingual film 1 film SUBLINGUAL DAILY 01/06/20 [History Confirmed 09/09/21] lisinopril 5 mg tablet 5 mg PO DAILY 01/06/20 [History Confirmed 09/09/21] metformin 500 mg tablet,extended release 24 hr 500 mg PO QAM 01/06/20 [History Confirmed 09/09/21] valacyclovir 500 mg tablet 500 mg PO DAILY PRN 01/06/20 [History Confirmed 09/08/21] zolpidem 12.5 mg tablet,extended release,multiphase 12.5 mg PO BEDTIME 01/06/20 [History Confirmed 09/08/21] lorazepam 2 mg tablet 2 mg PO TID #0 tab 01/08/20 [Rx Confirmed 09/09/21] ondansetron 4 mg disintegrating tablet 4 mg PO Q4H PRN #20 tab 05/26/20 [Rx Confirmed 09/08/21] cholecalciferol (vitamin D3) 50 mcg (2,000 unit) capsule 50 mcg PO DAILY 11/28/20 [History Confirmed 09/09/21] dicyclomine 20 mg tablet 20 mg PO QID PRN 11/28/20 [History Confirmed 09/08/21] insulin glargine 100 unit/mL subcutaneous solution (Lantus U-100 Insulin) 30 unit SUBCUT BID #0 ml 11/28/20 [History Confirmed 09/08/21] ketamine 100 mg sublingual narinder 100 mg SUBLINGUAL DAILY tab 11/28/20 [History Confirmed 09/08/21] lamotrigine 25 mg tablet 150 mg PO DAILY tab 11/28/20 [History Confirmed 09/09/21] [id number] 36,000-114,000-180,000 unit capsule,delay rel (Creon) 2 cap PO DAILY cap 11/28/20 [History Confirmed 09/09/21] quetiapine 100 mg tablet (Seroquel) 100 mg PO BID PRN #0 tab 11/28/20 [History Confirmed 09/09/21] tizanidine 2 mg tablet 4 mg PO Q8H PRN tab 11/28/20 [History Confirmed 09/09/21] vitamin B complex 1 tab PO DAILY 11/28/20 [History Confirmed 09/08/21] methylphenidate HCl 10 mg tablet 10 mg PO TID #90 tab 08/17/21 [Rx Confirmed 09/08/21] amlodipine 10 mg tablet 10 mg PO DAILY 09/08/21 [History Confirmed 09/08/21] Visit Medications (administered) Generic Name Dose Route Start Last Admin Trade Name Freq PRN Reason Stop Dose Admin Amlodipine Besylate 10 mg 09/09/21 09:00 09/09/21 08:59 Amlodipine 5 Mg Tablet PO 10 mg DAILY YARI Administration Buprenorphine/Naloxone 1 tab 09/09/21 09:15 09/09/21 09:18 Buprenorphine/Naloxone 8mg/2mg 1 Tab SL 1 tab DAILY YARI Administration Enoxaparin Sodium 40 mg 09/09/21 09:00 09/09/21 08:55 Enoxaparin 40 Mg/0.4 Ml Syringe SUBCUT 40 mg DAILY YARI Administration Fluoxetine HCl 60 mg 09/09/21 09:00 09/09/21 08:57 Fluoxetine 20 Mg Capsule PO 60 mg DAILY YARI Administration Dextrose/Sodium Chloride 1,000 mls @ 60 mls/hr 09/08/21 20:00 09/08/21 20:33 Dextrose 5%-0.9% Ns IV 60 mls/hr CONT YARI Administration Nicardipine HCl 25 mg/ Sodium 250 mls @ 50 mls/hr 09/08/21 23:30 09/09/21 07:14 Chloride IV 10 mg/hr TITRATE YARI 100 mls/hr Administration Protocol 5 MG/HR POTASSIUM CHLORIDE IN WATER 10 meq in 100 mls @ 100 mls/hr 09/09/21 08:30 09/09/21 08:55 Potassium Cl 10 Meq/100 Ml Tracy IV 09/09/21 12:29 100 mls/hr Q1H YARI Administration Magnesium Sulfate 2 gm in 50 mls @ 25 mls/hr 09/09/21 08:29 09/09/21 08:55 Magnesium Sulfate IV 09/09/21 10:28 25 mls/hr NOW ONE Administration Insulin Human Lispro 0 unit 09/08/21 21:00 09/09/21 08:04 Insulin Lispro 100 Unit/Ml 3ml Vial SUBCUT Not Given ACHS YARI Protocol Lamotrigine 150 mg 09/09/21 09:00 09/09/21 08:58 Lamotrigine 100 Mg Tablet PO 150 mg DAILY YARI Administration Lisinopril 5 mg 09/09/21 09:00 09/09/21 08:58 Lisinopril 5 Mg Tablet PO 5 mg DAILY YARI Administration Lorazepam 1 mg 09/08/21 23:51 09/09/21 01:58 Lorazepam 2 Mg/Ml Inj IV 1 mg Q4HR PRN Administration Anxiety Metoprolol Succinate 100 mg 09/09/21 09:00 09/09/21 08:57 Metoprolol Er 50 Mg Tablet PO 100 mg DAILY YARI Administration Naloxone HCl 0.4 mg 09/08/21 15:02 09/08/21 15:08 Naloxone 0.4 Mg/Ml Vial IV 0.4 mg Q2MIN PRN Administration Opiate Reversal Ondansetron HCl 4 mg 09/08/21 21:00 09/09/21 09:00 Ondansetron 4 Mg/2 Ml Inj IV 4 mg Q4HR YARI Administration Objective Labs Result Diagrams: 09/09/21 04:14 09/09/21 04:14 Labs: Laboratory Results - last 24 hr 09/08/21 09/08/21 09/08/21 14:22 14:35 14:35 WBC 5.3 RBC 3.05 L Hgb 8.4 L Hct 24.6 L MCV 80.7 MCH 27.5 MCHC 34.0 RDW 14.5 Plt Count 314 Neut % (Auto) 77.6 H Lymph % (Auto) 12.0 L [place] % (Auto) 9.3 Eos % (Auto) 0.9 L Baso % (Auto) 0.2 Neut # (Auto) 4100 Lymph # (Auto) 600 L [place] # (Auto) 500 Eos # (Auto) 0 Baso # (Auto) 0 PT 15.2 H INR 1.3 APTT 36 Sodium Potassium Chloride Carbon Dioxide BUN Creatinine Estimated GFR BUN/Creatinine Ratio Glucose Lactate Calcium Phosphorus Magnesium Total Bilirubin AST ALT Alkaline Phosphatase Ammonia Total Creatine Kinase CK-MB (CK-2) CK-MB (CK-2) Rel Index Troponin I Total Protein Albumin Globulin Albumin/Globulin Ratio Procalcitonin TSH Prolactin Urine Color Urine Appearance Urine pH Ur Specific [place] Urine Protein Urine Glucose (UA) Urine Ketones Urine Occult Blood Urine Nitrate Urine Bilirubin Urine Urobilinogen Ur Leukocyte Esterase Urine RBC Urine WBC Ur Squamous Epith Cells Amorphous Sediment Urine Bacteria Ur Culture Indicated? Nasal Screen MRSA (PCR) U Opiates 300ng/mL cut Ur Oxycodone Screen Urine Methadone Screen Ur Barbiturates Screen U Tricyclic Antidepress Ur Phencyclidine Scrn Ur Amphetamines Screen U Methamphetamines Scrn Ur MDMA Scrn (Ecstasy) U Benzodiazepines Scrn Urine Cocaine Screen U Marijuana (THC) Screen Ketones C. difficile Tox (PCR) SARS-CoV-2 (PCR) Positive H Blood Type Antibody Screen 09/08/21 09/08/21 09/08/21 14:35 14:35 14:35 WBC RBC Hgb Hct MCV MCH MCHC RDW Plt Count Neut % (Auto) Lymph % (Auto) [place] % (Auto) Eos % (Auto) Baso % (Auto) Neut # (Auto) Lymph # (Auto) [place] # (Auto) Eos # (Auto) Baso # (Auto) PT INR APTT Sodium Potassium Chloride Carbon Dioxide BUN Creatinine Estimated GFR BUN/Creatinine Ratio Glucose Lactate 1.7 Calcium Phosphorus Magnesium Total Bilirubin AST ALT Alkaline Phosphatase Ammonia 10 Total Creatine Kinase CK-MB (CK-2) CK-MB (CK-2) Rel Index Troponin I Total Protein Albumin Globulin Albumin/Globulin Ratio Procalcitonin 0.45 TSH Prolactin Urine Color Urine Appearance Urine pH Ur Specific [place] Urine Protein Urine Glucose (UA) Urine Ketones Urine Occult Blood Urine Nitrate Urine Bilirubin Urine Urobilinogen Ur Leukocyte Esterase Urine RBC Urine WBC Ur Squamous Epith Cells Amorphous Sediment Urine Bacteria Ur Culture Indicated? Nasal Screen MRSA (PCR) U Opiates 300ng/mL cut Ur Oxycodone Screen Urine Methadone Screen Ur Barbiturates Screen U Tricyclic Antidepress Ur Phencyclidine Scrn Ur Amphetamines Screen U Methamphetamines Scrn Ur MDMA Scrn (Ecstasy) U Benzodiazepines Scrn Urine Cocaine Screen U Marijuana (THC) Screen Ketones C. difficile Tox (PCR) SARS-CoV-2 (PCR) Blood Type Antibody Screen 09/08/21 09/08/21 09/08/21 14:35 14:39 14:39 WBC RBC Hgb Hct MCV MCH MCHC RDW Plt Count Neut % (Auto) Lymph % (Auto) [place] % (Auto) Eos % (Auto) Baso % (Auto) Neut # (Auto) Lymph # (Auto) [place] # (Auto) Eos # (Auto) Baso # (Auto) PT INR APTT Sodium Potassium Chloride Carbon Dioxide BUN Creatinine Estimated GFR BUN/Creatinine Ratio Glucose Lactate Calcium Phosphorus Magnesium Total Bilirubin AST ALT Alkaline Phosphatase Ammonia Total Creatine Kinase CK-MB (CK-2) CK-MB (CK-2) Rel Index Troponin I Total Protein Albumin Globulin Albumin/Globulin Ratio Procalcitonin TSH 1.00 Prolactin 9.2 Urine Color Urine Appearance Urine pH Ur Specific [place] Urine Protein Urine Glucose (UA) Urine Ketones Urine Occult Blood Urine Nitrate Urine Bilirubin Urine Urobilinogen Ur Leukocyte Esterase Urine RBC Urine WBC Ur Squamous Epith Cells Amorphous Sediment Urine Bacteria Ur Culture Indicated? Nasal Screen MRSA (PCR) U Opiates 300ng/mL cut Ur Oxycodone Screen Urine Methadone Screen Ur Barbiturates Screen U Tricyclic Antidepress Ur Phencyclidine Scrn Ur Amphetamines Screen U Methamphetamines Scrn Ur MDMA Scrn (Ecstasy) U Benzodiazepines Scrn Urine Cocaine Screen U Marijuana (THC) Screen Ketones C. difficile Tox (PCR) SARS-CoV-2 (PCR) Blood Type O Positive Antibody Screen Negative 09/08/21 09/08/21 09/08/21 14:39 14:45 15:16 WBC RBC Hgb Hct MCV MCH MCHC RDW Plt Count Neut % (Auto) Lymph % (Auto) [place] % (Auto) Eos % (Auto) Baso % (Auto) Neut # (Auto) Lymph # (Auto) [place] # (Auto) Eos # (Auto) Baso # (Auto) PT INR APTT Sodium Potassium Chloride Carbon Dioxide BUN Creatinine Estimated GFR BUN/Creatinine Ratio Glucose Lactate Calcium Phosphorus Magnesium 1.7 Total Bilirubin AST ALT Alkaline Phosphatase Ammonia Total Creatine Kinase CK-MB (CK-2) CK-MB (CK-2) Rel Index Troponin I Total Protein Albumin Globulin Albumin/Globulin Ratio Procalcitonin TSH Prolactin Urine Color Yellow Urine Appearance Clear Urine pH 7.5 Ur Specific [place] 1.010 Urine Protein Trace H Urine Glucose (UA) Negative Urine Ketones Negative Urine Occult Blood Trace-intact Urine Nitrate Negative Urine Bilirubin Negative Urine Urobilinogen 0.2 Ur Leukocyte Esterase Negative Urine RBC 1-5/hpf Urine WBC 1-5/hpf Ur Squamous Epith Cells 1-5 /hpf Amorphous Sediment 1+ Urine Bacteria Few (2-10) H Ur Culture Indicated? Specimen cultured Nasal Screen MRSA (PCR) U Opiates 300ng/mL cut Negative Ur Oxycodone Screen Negative Urine Methadone Screen Negative Ur Barbiturates Screen Negative U Tricyclic Antidepress Positive H Ur Phencyclidine Scrn Negative Ur Amphetamines Screen Negative U Methamphetamines Scrn Negative Ur MDMA Scrn (Ecstasy) Negative U Benzodiazepines Scrn Positive H Urine Cocaine Screen Negative U Marijuana (THC) Screen Positive H Ketones C. difficile Tox (PCR) SARS-CoV-2 (PCR) Blood Type Antibody Screen 09/08/21 09/08/21 09/08/21 16:05 16:05 22:25 WBC RBC Hgb Hct MCV MCH MCHC RDW Plt Count Neut % (Auto) Lymph % (Auto) [place] % (Auto) Eos % (Auto) Baso % (Auto) Neut # (Auto) Lymph # (Auto) [place] # (Auto) Eos # (Auto) Baso # (Auto) PT INR APTT Sodium 137 Potassium 3.9 Chloride 100 Carbon Dioxide 33 H BUN 10 Creatinine 0.64 Estimated GFR > 60.0 BUN/Creatinine Ratio 15.6 Glucose 166 H Lactate Calcium 8.7 Phosphorus Magnesium Total Bilirubin 1.4 H AST 97 H ALT 69 H Alkaline Phosphatase 374 H D Ammonia Total Creatine Kinase 202 H CK-MB (CK-2) 2.69 H CK-MB (CK-2) Rel Index 1.3 L Troponin I < 0.012 Total Protein 6.8 Albumin 3.3 L Globulin 3.5 Albumin/Globulin Ratio 0.9 L Procalcitonin TSH Prolactin Urine Color Urine Appearance Urine pH Ur Specific [place] Urine Protein Urine Glucose (UA) Urine Ketones Urine Occult Blood Urine Nitrate Urine Bilirubin Urine Urobilinogen Ur Leukocyte Esterase Urine RBC Urine WBC Ur Squamous Epith Cells Amorphous Sediment Urine Bacteria Ur Culture Indicated? Nasal Screen MRSA (PCR) Positive for mrsa H U Opiates 300ng/mL cut Ur Oxycodone Screen Urine Methadone Screen Ur Barbiturates Screen U Tricyclic Antidepress Ur Phencyclidine Scrn Ur Amphetamines Screen U Methamphetamines Scrn Ur MDMA Scrn (Ecstasy) U Benzodiazepines Scrn Urine Cocaine Screen U Marijuana (THC) Screen Ketones 0.09 C. difficile Tox (PCR) SARS-CoV-2 (PCR) Blood Type Antibody Screen 09/08/21 09/09/21 09/09/21 23:59 04:14 04:14 WBC 7.0 RBC 4.22 Hgb 11.7 L Hct 33.9 L MCV 80.4 MCH 27.6 MCHC 34.4 RDW 14.7 Plt Count 472 H Neut % (Auto) 89.4 H Lymph % (Auto) 6.7 L [place] % (Auto) 3.5 Eos % (Auto) 0.1 L Baso % (Auto) 0.3 Neut # (Auto) 6300 Lymph # (Auto) 500 L [place] # (Auto) 200 Eos # (Auto) 0 Baso # (Auto) 0 PT 14.8 H INR 1.3 APTT Sodium Potassium Chloride Carbon Dioxide BUN Creatinine Estimated GFR BUN/Creatinine Ratio Glucose Lactate Calcium Phosphorus Magnesium Total Bilirubin AST ALT Alkaline Phosphatase Ammonia Total Creatine Kinase CK-MB (CK-2) CK-MB (CK-2) Rel Index Troponin I Total Protein Albumin Globulin Albumin/Globulin Ratio Procalcitonin TSH Prolactin Urine Color Urine Appearance Urine pH Ur Specific [place] Urine Protein Urine Glucose (UA) Urine Ketones Urine Occult Blood Urine Nitrate Urine Bilirubin Urine Urobilinogen Ur Leukocyte Esterase Urine RBC Urine WBC Ur Squamous Epith Cells Amorphous Sediment Urine Bacteria Ur Culture Indicated? Nasal Screen MRSA (PCR) U Opiates 300ng/mL cut Ur Oxycodone Screen Urine Methadone Screen Ur Barbiturates Screen U Tricyclic Antidepress Ur Phencyclidine Scrn Ur Amphetamines Screen U Methamphetamines Scrn Ur MDMA Scrn (Ecstasy) U Benzodiazepines Scrn Urine Cocaine Screen U Marijuana (THC) Screen Ketones C. difficile Tox (PCR) Negative for c. diff SARS-CoV-2 (PCR) Blood Type Antibody Screen 09/09/21 09/09/21 09/09/21 04:14 04:14 04:14 WBC RBC Hgb Hct MCV MCH MCHC RDW Plt Count Neut % (Auto) Lymph % (Auto) [place] % (Auto) Eos % (Auto) Baso % (Auto) Neut # (Auto) Lymph # (Auto) [place] # (Auto) Eos # (Auto) Baso # (Auto) PT INR APTT Sodium 139 Potassium 3.3 L Chloride 100 Carbon Dioxide 28 BUN 7 Creatinine 0.43 L Estimated GFR > 60.0 BUN/Creatinine Ratio 16.3 Glucose 263 H Lactate Calcium 9.5 Phosphorus 2.6 D Magnesium Total Bilirubin AST ALT Alkaline Phosphatase Ammonia Total Creatine Kinase CK-MB (CK-2) CK-MB (CK-2) Rel Index Troponin I 0.026 Total Protein Albumin Globulin Albumin/Globulin Ratio Procalcitonin TSH Prolactin Urine Color Urine Appearance Urine pH Ur Specific [place] Urine Protein Urine Glucose (UA) Urine Ketones Urine Occult Blood Urine Nitrate Urine Bilirubin Urine Urobilinogen Ur Leukocyte Esterase Urine RBC Urine WBC Ur Squamous Epith Cells Amorphous Sediment Urine Bacteria Ur Culture Indicated? Nasal Screen MRSA (PCR) U Opiates 300ng/mL cut Ur Oxycodone Screen Urine Methadone Screen Ur Barbiturates Screen U Tricyclic Antidepress Ur Phencyclidine Scrn Ur Amphetamines Screen U Methamphetamines Scrn Ur MDMA Scrn (Ecstasy) U Benzodiazepines Scrn Urine Cocaine Screen U Marijuana (THC) Screen Ketones C. difficile Tox (PCR) SARS-CoV-2 (PCR) Blood Type Antibody Screen Exam Vital Signs (past 8 hours): - 09/09/21 01:40 09/09/21 01:50 09/09/21 02:00 Temperature 97.2 F L 97.5 F L 97.5 F L Pulse Rate 97 H 96 H 97 H Respiratory Rate Blood Pressure 166/81 H 156/80 H 152/74 H Pulse Oximetry 99 96 99 09/09/21 02:10 09/09/21 02:15 09/09/21 02:20 Temperature 97.5 F L 97.0 F L 97.5 F L Pulse Rate 97 H 100 H 100 H Respiratory Rate Blood Pressure 146/71 H 145/84 H Pulse Oximetry 99 100 99 09/09/21 02:23 09/09/21 02:30 09/09/21 02:40 Temperature 97.3 F L 97.5 F L Pulse Rate 99 H 101 H 100 H Respiratory Rate 20 Blood Pressure 145/84 H 153/77 H Pulse Oximetry 99 99 09/09/21 02:45 09/09/21 02:50 09/09/21 03:00 Temperature 97.3 F L 97.0 F L 97.5 F L Pulse Rate 100 H 102 H 96 H Respiratory Rate 20 21 Blood Pressure 151/71 H 168/84 H Pulse Oximetry 99 99 99 09/09/21 03:04 09/09/21 03:10 09/09/21 03:15 Temperature 97.5 F L 97.7 F 97.7 F Pulse Rate 99 H 101 H 98 H Respiratory Rate Blood Pressure 164/86 H Pulse Oximetry 99 98 99 09/09/21 03:20 09/09/21 03:30 09/09/21 03:40 Temperature 97.7 F 97.7 F 97.5 F L Pulse Rate 103 H 104 H 105 H Respiratory Rate 15 16 Blood Pressure 149/84 H Pulse Oximetry 98 99 100 09/09/21 03:50 09/09/21 03:54 09/09/21 04:00 Temperature 97.5 F L 97.5 F L 97.7 F Pulse Rate 103 H 101 H 104 H Respiratory Rate 30 H 17 20 Blood Pressure 159/91 H 164/99 H Pulse Oximetry 100 98 99 09/09/21 04:10 09/09/21 04:15 09/09/21 04:20 Temperature 97.7 F 97.7 F 97.7 F Pulse Rate 103 H 104 H 102 H Respiratory Rate 15 19 12 Blood Pressure 164/89 H Pulse Oximetry 99 99 99 09/09/21 04:30 09/09/21 04:40 09/09/21 04:45 Temperature 97.7 F 97.7 F 97.7 F Pulse Rate 104 H 107 H 104 H Respiratory Rate 16 23 26 H Blood Pressure 159/87 H 150/88 H Pulse Oximetry 99 100 99 09/09/21 04:50 09/09/21 05:00 09/09/21 05:10 Temperature 97.7 F 97.7 F 97.7 F Pulse Rate 104 H 105 H 104 H Respiratory Rate 23 23 14 Blood Pressure 138/78 Pulse Oximetry 100 99 99 09/09/21 05:15 09/09/21 05:20 09/09/21 05:30 Temperature 97.7 F 97.7 F 97.7 F Pulse Rate 104 H 106 H 105 H Respiratory Rate 24 38 H 22 Blood Pressure 144/89 H 162/94 H Pulse Oximetry 99 100 99 09/09/21 05:40 09/09/21 05:45 09/09/21 05:50 Temperature 97.7 F 97.7 F 97.7 F Pulse Rate 105 H 107 H 109 H Respiratory Rate 13 18 26 H Blood Pressure 159/92 H Pulse Oximetry 99 99 99 09/09/21 06:00 09/09/21 06:10 09/09/21 06:15 Temperature 97.7 F 97.7 F 97.7 F Pulse Rate 107 H 110 H 109 H Respiratory Rate 20 16 23 Blood Pressure 169/86 H 158/85 H Pulse Oximetry 99 99 99 09/09/21 06:20 09/09/21 06:30 09/09/21 06:40 Temperature 97.9 F 97.7 F 97.7 F Pulse Rate 109 H 114 H 108 H Respiratory Rate 11 L 22 Blood Pressure 174/101 H Pulse Oximetry 99 99 98 09/09/21 06:45 09/09/21 06:50 09/09/21 07:00 Temperature 97.9 F 97.9 F 98.3 F Pulse Rate 108 H 108 H 114 H Respiratory Rate 16 14 25 H Blood Pressure 162/92 H 172/91 H Pulse Oximetry 98 97 99 09/09/21 07:10 09/09/21 07:16 09/09/21 07:20 Temperature 97.7 F 97.5 F L 97.9 F Pulse Rate 108 H 109 H 107 H Respiratory Rate 17 25 H 21 Blood Pressure 153/88 H Pulse Oximetry 99 100 99 09/09/21 07:30 09/09/21 07:40 09/09/21 08:57 Temperature 97.9 F 97.7 F Pulse Rate 107 H 110 H 108 H Respiratory Rate 13 23 Blood Pressure 154/88 H 153/83 H Pulse Oximetry 100 99 09/09/21 08:58 Temperature Pulse Rate 108 H Respiratory Rate Blood Pressure 153/83 H Pulse Oximetry Oxygen Delivery Method Room Air Oxygen Flow Rate 0 Quality TeleICU VTE Deep Vein Thrombosis/Pulmonary Embolism Present on Admission: No Assessment & Plan Assessment & Plan narrative: # Acute encephalopathy -- Resolved -- Consider etiology to be secondary to polypharmacy. Other ddx includes TIA vs aubrye's paralysis from post ictal. -- Unable to get MRI brain due to COVID positivity per hospital policy -- Will minimize polypharmacy -- Seek PT/OT consultation -- Cont frequent reorientation and early mobility # Depression -- On home SL ketamine but hospital does not carry current meds and given patient's COVID positivity, family member is not allow to drop off home meds per hospital policy -- Cont ativan as needed -- Monitor closely for withdrawal -- Seizure precaution # Bipolar disorder -- Cont lamictal CVS: # HTN urgency -- On cardene infusion -- Goal SBP < 160 -- Resume home BP meds GI: # N/V -- Secondary to cannabinoid hyperemesis syndrome vs wtihdrawal vs viral gastroenteritis -- Complete cannabinoid cessation recommended -- Cont zofran as needed ID: # COVID-19 -- Currently on room air with signs of respiratory distress -- No role for decadron therapy -- On contact and airborne precautions ENDO: # DM -- On accucheck and low carb diet -- Goal BS < 180 Time Spent With Patient Critical Care time: I spent a total of [] minutes of critical care time on this patient's care today; this time is exclusive of procedural time.
[2021-09-09] MEDS: INSULIN LISPRO 100 UNIT/ML 3ML VIAL SUBCUT (12:03)
[2021-09-09] MEDS: LIPASE/PROTEASE/AMYLASE 5/17/24 CAP 11 CAP PO (12:03)
--- NOTE | 2021-09-09 12:39 | PT-IP ANOTE ---
Talked with nurse and stated that pt does not need PT. stated that pt issues/symptoms upon admissions has all resolved and these were due to polypharmacy. stated that pt is moving ok. Informed nurse that if pt is independent with them and is documented then pt does not need PT. Nurse then stated that, pt has not moved with them but she feels the pt will be able to. Talked to Dr. Shelley and stated that if pt is moving ok with nurses, no PT needs. talked to nurse again who just stepped out of pt's room, stated that pt is just SBA with walking with them and no PT needs at this time and that she will document pt's mobility. informed Dr. Shelley regarding pt's mobility and plan to d/c PT eval order and agreed.
--- NOTE | 2021-09-09 13:36 | PC.NURSE ---
Addendum entered by Amy Alba R.N. 09/09/21 15:50: Pt reclining in bed, Dr Garcia at bedside discussing negative results of MRI, also explained the risks of pt use of THC and current drug regimen, questions answered, pt to discharge home at this time, brought clothing to medical front desk specialist, pt able to ambulate to bathroom independently and get dressed with no difficulty. PIV removed, catheter intact, all belongings gathered and placed in pt own bag. Will escort pt via wheelchair to private vehicle and no further patient contact after that time. Original Note: Day shift note: At beginning for shift pt started out asking for Proprofol to help her sleep, this nurse told the pt that that is not going to happen, she then stated that she wants her ketamine, again this nurse stated that we don't have the amount of ketamine that she takes, pt stated that's ok I can just have my bring mine. After talking to the pharmacist it was discovered that pt is taking 1500 mg of Ketamine daily, (every few hours) and she takes the capsules rectally (this was the way that she was taking them during her last stay, a week ago). Report given to tele reject opener, hospitalist and pharmacist, please see reports. NIH started at 3 and is now 0, they slight slur to her speech has resolved. Pt is able to answer all questions appropriately, move all limbs independently, able ambulate without assistance (stand-by assist for safety) to the restroom. Lee catheter discontinued prior to MRI, due to temperature sensing cord. Nicardipene gtt d/c'd due to transitioning pt to her po cardiac meds, administered her ordered home meds as ordered. Potassium and Magnesium both replaced as ordered. Diet ordered and tolerated well, pt states that she is ready to go home, updated hospitalist on patient's wishes, waiting for new orders. Bed low and locked, call light within reach, will continue to treat and monitor as ordered
--- NOTE | 2021-09-09 15:53 | CM.IDA ---
Initial DCP Assessment Note Patient is a 56 yo female who was admitted on 09/08/21 for Altered mental status, encephalopathy. Patient was recently admitted 2.11-2.13 and DC home w/spouse. Patient contracted C19 approx 4 weeks ago and still testing + Pt has [employer] for insurance and her PCP is Dr. Neftaly Tomlinson. Per , pt with hx of diabetes, hypertension, bipolar do, depression, anxiety, chronic pain and prescribed Suboxone and prescribed Ketamine by Psychiatrist. SW called pt's spouse and explained role and he confirms they live at home in [place] and pt is not working and he works from home for the past few years. Pt is independent with ADL's and mobility but does have a complex medical/mental health hx but spouse denies any hx of HH or SNF. Spouse also contracted COVID 19 about 4 weeks ago and now states he feels mostly recovered and is available and able to assist pt at d/c but states she needs to be able to ambulate without much physical assist to safely d/c home and pt has been below baseline with weakness the past few days. Plan: Home today w/supportive spouse to assist, no need for HH services MIGDALIA Fish Discharge Planning/Care Management CM Discharge Assessment Start: 09/09/21 15:50 Freq: Status: Active Protocol: Document 09/09/21 15:50 CLAUDE (Rec: 09/09/21 15:52 CLAUDE [id number]) Discharge Planning Assessment Assigned Safemaker MIGDALIA Childress DPOA/Assigned Designee Name Arnie Brown, spouse Contact Information [phone] Advance Directives? No Advance Directives on File No History Provided By Patient,Significant Other, Medical Record Prior Living Arrangements House Household Members spouse Type of transporation used prior to Relies on Others admit Independent with ADL's Yes Is patient alert and oriented? Yes Barriers to Discharge No Comment Met w/pt today, explained SW/ DCP role. Pt explains she lives at home w/family and her is extremely supportive. Discharge Plan Home Transportation Arrangement Family Referrals Initiated None needed Additional Comment Patient/spouse deny the need for HH
--- NOTE | 2021-09-09 17:04 | PM.DS.1 ---
History of Present Illness History of Present Illness Chief complaint: unresponsive Narrative: Per Ludivina Ahumada: Sheela Shaw is a 56-year-old female with a past medical history significant POLYPharmacy, hypertension(recurrent urgency), hyperlipidemia, insulin dependent diabetes mellitus type 2, bipolar 1 disorder, major depressive disorder, anxiety with benzodiazipine dependence, chronic pain syndrome with opiate and Suboxone dependence, HERRING with transaminitis and probable early cirrhosis, hypersomnia with obstructive sleep apnea, chronic pancreatitis due sphincter of Oddi dysfunction, and active-asymptomatic Covid-19 infection (initial positive 08/12/21, 09/02/21, today), last admit for intractable nausea and vomiting 09/02-09/03/21 who was admitted tonight for possible CVA vs Polypharmcy encephalopathy.? Patients reported last normal per 30-60 minutes prior to arrival in ED.? Patients spouse found her sitting, able to move her right side, unresponsive to him verbally.?upon arrival in ED patient was reported to be lying still with her eyes closed, not moving left side, unresponsive verbally to staff, and moving her right side.? She has noknown prior history of stroke.? Her denied respiratory issues, headache, fever, vomiting, She seemed to be doing well with no precipitating events.? Due to patient's altered mental status the patient was unable to participate in HPI, ROS.? Patient on previous admit reported prescribed medications to include Concerta 30mg, Suboxone 8mg/2mg, Lamictal 150mg, ketamine 100mg, Seroquel 600mg, fluoxetine 20mg, Ambien 12.5mg, tizanidine 12mg, tramadol 200mg, and lorazepam 6mg- Chronic Pain management Dr. Holder,? amlodipine 10 mg, atorvastatin 80 mg, Bentyl 80 mg, fenofibrate 160 mg, NovoLog and Lantus. Upon admit to the floor patient was initially nonverbal required significant physical stimulation for arousal, febrile and hypertensive urgency.? Patient's vitals upon admit temp 99?, BP 174/85, HR 77, RR 22, O2 saturation 96% on room air.? Patient had no WBC, patient did have a moderate decrease in her H&H.? 09/02/2021 HGB 11.2/HCT 33.2, today HGB 8.4, HCT 24.6.? Patient's chemistry predominantly within normal limits with the exception of glucose 166.? Liver panel 09/02/2021:? TB 2.5, AST 425, ALT 202, alk-phos 191.? Today significant improvement TB 1.4, AST 97, ALT 69, alk-phos is elevated 374.? Patient's PT 15.2, INR 1.3, PTT 36.? Patient's ammonia negative, TCK 202, CK-MB 2.69 with a rel index 1.3%, troponin WNL, albumin 3.3, procalcitonin is normal at 0.45.? TSH and prolactin WNL. GCS: 8, NIH: 20. COVID-19 PCR continues to be positive.? Patient's urinalysis demonstrated few bacteria and has been cultured.? Patient's tox screen was positive for benzodiazepines, tricyclic antidepressants, and marijuana.? Head neck CTA demonstrated right middle lung pneumonia versus atelectasis, patient's head CT is negative for any acute intracranial processes, patient's chest x-ray demonstrated cardiomegaly accentuated by lower lung volumes. Discharge Providers Provider Date of admission: 09/08/21 17:11 Discharge Date: 09/09/21 Primary care physician: Neftaly Tomlinson MD Consults: 09/08/21 20:47 Consult to Tele-perforator operator oil well Routine Comment: Consulting Provider: Ayad [employer] Reason for consultation: Company Controller services Has provider been notified: No 09/08/21 22:06 Consult to Physical Therapy Evaluate & Treat Comment: poss stroke Physician Instructions: Evaluate and Treat 09/08/21 22:14 Consult to Physician Routine Comment: Consulting Provider: Giovanni Neil Reason for consultation: ICU tele perforator operator oil well Discharge provider: Jeff Garcia MD Summary Hospital Course Discharge Diagnosis: 1. Toxic metabolic encephalopathy 2. Transient lateralizing weakness 3. THC dependence, possible cannabis hyperemesis syndrome 4. Bipolar disorder, major depression, chronic anxiety 4. Chronic pain, opiate dependence 4. Anemia 5. Hypertension 6. Type 2 Diabetes, on insulin 7. Hyperlipidemia 8. HERRING 9. Hypersomnia Hospital Course: Ms. Brown was admitted with encephalopathy. Initially there was concern for possible stroke as there as possible lateralizing weakness of her left extremity. However this resolved quickly, and on the floor she had no focal neurologic findings. MRI was negative for stroke. However, she was quite altered. She is on multiple medications for her complicated psych history, including large doses of ketamine, among others. However, these are all chronic, and I did discuss with her psychiatrist who states she has been stable on her medications for quite some time. More recently she has started using increasing doses of THC, and she did recently get COVID infection. Her psychiatrist and are quite concerned about the THC causing interactions with her medications and causing these presentations. On day of discharge she was improved to her baseline. She was counseled to stop THC completely. She was able to tolerate a diet with no issues in the hospital. She and her were encouraged to follow up with her psychiatrist as soon as possible to make sure her current psych regimen remains appropriate. No adjustment to her other medications were done at this time after discussion with her psychiatrist. Discharge time 40 minutes Exam Vital Signs (past 8 hours): - 09/09/21 09:10 09/09/21 09:15 09/09/21 09:20 Temperature 98.1 F 98.1 F 98.1 F Pulse Rate 111 H 109 H 110 H Respiratory Rate 24 14 16 Blood Pressure 155/83 H Pulse Oximetry 99 99 98 09/09/21 09:27 09/09/21 09:30 09/09/21 09:40 Temperature 97.9 F 97.9 F Pulse Rate 113 H 112 H 106 H Respiratory Rate 40 H 17 Blood Pressure 162/87 H 161/93 H Pulse Oximetry 99 99 09/09/21 09:45 09/09/21 09:50 09/09/21 10:00 Temperature 97.9 F 98.1 F 97.9 F Pulse Rate 105 H 106 H 108 H Respiratory Rate 15 11 L 19 Blood Pressure 162/99 H 168/109 H Pulse Oximetry 99 99 99 09/09/21 10:10 09/09/21 10:15 09/09/21 10:20 Temperature 98.1 F 98.1 F 98.1 F Pulse Rate 116 H 108 H 108 H Respiratory Rate 10 L 14 Blood Pressure 162/96 H Pulse Oximetry 100 99 99 09/09/21 10:30 09/09/21 10:40 09/09/21 10:45 Temperature 97.9 F 98.1 F 97.9 F Pulse Rate 109 H 111 H 110 H Respiratory Rate 24 7 L 8 L Blood Pressure 168/94 H 164/87 H Pulse Oximetry 98 99 99 09/09/21 10:50 09/09/21 11:00 09/09/21 11:10 Temperature 97.9 F 97.9 F 98.1 F Pulse Rate 110 H 112 H 111 H Respiratory Rate 19 44 H 27 H Blood Pressure 162/87 H Pulse Oximetry 99 100 98 09/09/21 11:15 09/09/21 11:20 09/09/21 11:30 Temperature 98.1 F 98.1 F 98.2 F Pulse Rate 110 H 114 H 112 H Respiratory Rate 23 21 Blood Pressure 161/88 H 164/100 H Pulse Oximetry 99 100 99 09/09/21 11:40 09/09/21 11:45 09/09/21 11:50 Temperature 98.2 F 98.1 F Pulse Rate 112 H 107 H 119 H Respiratory Rate 27 H 26 H Blood Pressure 175/95 H Pulse Oximetry 100 99 09/09/21 12:00 09/09/21 12:12 09/09/21 12:13 Temperature 98.6 F Pulse Rate 110 H 106 H Respiratory Rate 27 H 17 Blood Pressure 181/102 H Pulse Oximetry 99 09/09/21 12:20 09/09/21 12:29 09/09/21 12:30 Temperature 98.6 F 98.6 F 98.6 F Pulse Rate 104 H 101 H 103 H Respiratory Rate 14 17 16 Blood Pressure 187/109 H 184/115 H Pulse Oximetry 09/09/21 12:31 09/09/21 12:40 09/09/21 15:00 Temperature 98.4 F 98.4 F 98.6 F Pulse Rate 104 H 101 H 102 H Respiratory Rate 20 17 20 Blood Pressure 185/113 H 162/83 H Pulse Oximetry 98 Oxygen Delivery Method Room Air Oxygen Flow Rate 0 Narrative Exam Narrative: GEN: alert, oriented, no acute distress, cheerful CV: tachycardic, mild PULM: clear bilaterally ABD: soft, nontender, nondistended, no organomegaly EXT: warm and well perfused with no edema NEURO: moving all extremities with no focal deficits, no numbness, no weakess, CN 2-12 intact, no slurred speech Objective Labs Result Diagrams: 09/09/21 04:14 09/09/21 04:14 Labs: Laboratory Results - last 24 hr 0209/08/21 09/08/21 14:39 14:39 14:39 WBC RBC Hgb Hct MCV MCH MCHC RDW Plt Count Neut % (Auto) Lymph % (Auto) [place] % (Auto) Eos % (Auto) Baso % (Auto) Neut # (Auto) Lymph # (Auto) [place] # (Auto) Eos # (Auto) Baso # (Auto) PT INR Sodium Potassium Chloride Carbon Dioxide BUN Creatinine Estimated GFR BUN/Creatinine Ratio Glucose Calcium Phosphorus Magnesium 1.7 Total Bilirubin AST ALT Alkaline Phosphatase Total Creatine Kinase CK-MB (CK-2) CK-MB (CK-2) Rel Index Troponin I Total Protein Albumin Globulin Albumin/Globulin Ratio TSH 1.00 Prolactin 9.2 Nasal Screen MRSA (PCR) Ketones C. difficile Tox (PCR) 09/08/21 09/08/21 09/08/21 16:05 16:05 22:25 WBC RBC Hgb Hct MCV MCH MCHC RDW Plt Count Neut % (Auto) Lymph % (Auto) [place] % (Auto) Eos % (Auto) Baso % (Auto) Neut # (Auto) Lymph # (Auto) [place] # (Auto) Eos # (Auto) Baso # (Auto) PT INR Sodium 137 Potassium 3.9 Chloride 100 Carbon Dioxide 33 H BUN 10 Creatinine 0.64 Estimated GFR > 60.0 BUN/Creatinine Ratio 15.6 Glucose 166 H Calcium 8.7 Phosphorus Magnesium Total Bilirubin 1.4 H AST 97 H ALT 69 H Alkaline Phosphatase 374 H D Total Creatine Kinase 202 H CK-MB (CK-2) 2.69 H CK-MB (CK-2) Rel Index 1.3 L Troponin I < 0.012 Total Protein 6.8 Albumin 3.3 L Globulin 3.5 Albumin/Globulin Ratio 0.9 L TSH Prolactin Nasal Screen MRSA (PCR) Positive for mrsa H Ketones 0.09 C. difficile Tox (PCR) 09/08/21 09/09/21 09/09/21 23:59 04:14 04:14 WBC 7.0 RBC 4.22 Hgb 11.7 L Hct 33.9 L MCV 80.4 MCH 27.6 MCHC 34.4 RDW 14.7 Plt Count 472 H Neut % (Auto) 89.4 H Lymph % (Auto) 6.7 L [place] % (Auto) 3.5 Eos % (Auto) 0.1 L Baso % (Auto) 0.3 Neut # (Auto) 6300 Lymph # (Auto) 500 L [place] # (Auto) 200 Eos # (Auto) 0 Baso # (Auto) 0 PT 14.8 H INR 1.3 Sodium Potassium Chloride Carbon Dioxide BUN Creatinine Estimated GFR BUN/Creatinine Ratio Glucose Calcium Phosphorus Magnesium Total Bilirubin AST ALT Alkaline Phosphatase Total Creatine Kinase CK-MB (CK-2) CK-MB (CK-2) Rel Index Troponin I Total Protein Albumin Globulin Albumin/Globulin Ratio TSH Prolactin Nasal Screen MRSA (PCR) Ketones C. difficile Tox (PCR) Negative for c. diff 09/09/21 09/09/21 09/09/21 04:14 04:14 04:14 WBC RBC Hgb Hct MCV MCH MCHC RDW Plt Count Neut % (Auto) Lymph % (Auto) [place] % (Auto) Eos % (Auto) Baso % (Auto) Neut # (Auto) Lymph # (Auto) [place] # (Auto) Eos # (Auto) Baso # (Auto) PT INR Sodium 139 Potassium 3.3 L Chloride 100 Carbon Dioxide 28 BUN 7 Creatinine 0.43 L Estimated GFR > 60.0 BUN/Creatinine Ratio 16.3 Glucose 263 H Calcium 9.5 Phosphorus 2.6 D Magnesium Total Bilirubin AST ALT Alkaline Phosphatase Total Creatine Kinase CK-MB (CK-2) CK-MB (CK-2) Rel Index Troponin I 0.026 Total Protein Albumin Globulin Albumin/Globulin Ratio TSH Prolactin Nasal Screen MRSA (PCR) Ketones C. difficile Tox (PCR) [facility] Medical History (Updated 09/09/21 @ 01:07 by CLAUDIA Nair) Acute dehydration Acute infection of right ear Acute kidney injury Anxiety Arm pain Arthritis Benzodiazepine dependence, continuous Bipolar 1 disorder Chronic pain syndrome Chronic pancreatitis Episode of syncope Fracture of right foot Herniated nucleus pulposus, L4-5 History of pulmonary embolism Hypercholesterolemia with hypertriglyceridemia Hypersomnia Hypertension Insulin dependent diabetes mellitus Intractable vomiting with nausea Major depressive disorder 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 Neuropathy, diabetic Nonalcoholic steatohepatitis (HERRING) Obesity (BMI 30-39.9) Obstructive sleep apnea of adult Opiate dependence, continuous Renal insufficiency Snoring Type 2 diabetes mellitus Surgical History Gastrocnemius equinus of right lower extremity H/O hysterectomy for benign disease History of appendectomy History of cholecystectomy Lumbar post-laminectomy syndrome Right humeral fracture Family History Father COPD (chronic obstructive pulmonary disease) Mother Hypertension Sister Fibromyalgia Social History marital status: details: rasheed Gaitan household members: spouse lives independently: Yes caregiver/support person: No occupational status: unemployed Smoking Status: Never smoker alcohol intake: former substance use type: marijuana Discharge Plan Discharge Plan Patient Disposition: Home Provider Discharge Comment: Ms. Brown was admitted with confusion, difficulty moving her left side. She was evaluated for a stroke, but her tests were negative for stroke. This could be related to possible migraines, or possible interactions with THC and her medications. We did speak who her psychiatrist who was very concerned about THC affecting her medications and being the major cause of her symptoms. We also think this should completely avoided. She should follow up with him within a week if possible. Discharge orders & Medications Prescriptions: Continued metoprolol succinate [Toprol XL] 100 MG tablet extended release 24 hr 100 mg PO DAILY Qty: 0 0RF fenofibrate 160 MG tablet 160 mg PO DAILY Qty: 0 0RF insulin aspart U-100 [Novolog U-100 Insulin aspart] 100 UNIT/1 ML solution 10 - 25 unit SQ TIDAC Qty: 0 0RF Rx Instructions: sliding scale metoclopramide HCl [Reglan] 5 MG tablet 10 mg PO QID PRN (Reason: Nausea) Qty: 0 0RF quetiapine [Seroquel] 400 MG tablet 400 mg PO BEDTIME Qty: 0 0RF Lantus U-100 Insulin 100 unit/mL solution 30 unit SUBCUT BID Qty: 0 0RF Rx Instructions: 30 Unit in the morning & 30 units at bedtime ketamine 100 mg narinder 100 mg sublingual DAILY 0RF quetiapine [Seroquel] 100 mg tablet 100 mg PO BID PRN (Reason: episodes) Qty: 0 0RF tizanidine 2 mg tablet 4 mg PO Q8H PRN (Reason: Spasms) 0RF Creon 36,000-114,000- 180,000 unit capsule,delayed release(DR/EC) 2 cap PO DAILY 0RF Rx Instructions: administer with meals and/or snacks vitamin B complex Tablet 1 tab PO DAILY 0RF cholecalciferol (vitamin D3) 50 mcg (2,000 unit) capsule 50 mcg PO DAILY 0RF lamotrigine 25 mg tablet 150 mg PO DAILY 0RF dicyclomine 20 mg tablet 20 mg PO QID PRN (Reason: (Drug) Ingestion) 0RF methylphenidate HCl 10 mg tablet 10 mg PO TID Qty: 90 0RF omega-3 acid ethyl esters 1 gram Capsule 2 cap PO BID 0RF ondansetron 4 mg tablet,disintegrating 4 mg PO Q4H PRN (Reason: nausea and vomiting) Qty: 20 0RF amlodipine 10 mg tablet 10 mg PO DAILY 0RF Creon 36,000-114,000- 180,000 unit capsule,delayed release(DR/EC) 3 cap PO TIDWM 0RF Rx Instructions: 3 capsules by mouth with breakfast, 2 capsules with lunch and 1 capsule with snacks tramadol 50 mg tablet 50 mg PO Q6-8H PRN (Reason: pain) Qty: 20 0RF atorvastatin 80 mg tablet 80 mg PO DAILY 0RF valacyclovir 500 mg tablet 500 mg PO DAILY PRN (Reason: herpes) 0RF lisinopril 5 mg tablet 5 mg PO DAILY 0RF metformin 500 mg tablet extended release 24 hr 500 mg PO QAM 0RF zolpidem 12.5 mg tablet,ext release multiphase 12.5 mg PO BEDTIME 0RF buprenorphine-naloxone 2-0.5 mg film 1 film sublingual DAILY 0RF lorazepam 2 MG tablet 2 mg PO TID Qty: 0 0RF Rx Instructions: was taking 12 mg / day, decreased to 6 mg / day upon discharge 09/03/21 fluoxetine 20 mg capsule 60 mg PO DAILY 0RF Hold Instructions: Insurance denied; PA pending Follow up/Referrals: Neftaly Tomlinson MD [Primary Care Provider] - Diet/Activity/Treatments Diet: Regular and Carb-consistent/Diabetic Discharge Data Primary Care Provider: Neftaly Tomlinson Quality VTE Deep Vein Thrombosis/Pulmonary Embolism Present on Admission: No
[2021-09-11 15:26] LABS: Lamotrigine Lamictal 3.3 ug/mL (2.0-20.0)
[2021-09-13 06:19] LABS: H. Pylori Antigen Stool Negative (Negative)
== END 2021-09-09 16:17 | disposition home or self-care (01) | DRG 917 ==
LOC: ED 14:35 → AC 17:13 → ICU 09-09 07:50
PROVIDERS: Internal Medicine; Nurse Practitioner Family; Admitting Provider Student in an Organized Health Care Education/Training Program; Emergency Provider Emergency Medicine; PCP Internal Medicine; Referring Provider Emergency Medicine; Visit Provider Student in an Organized Health Care Education/Training Program
DX: T40.711A Poisoning by cannabis, accidental (unintentional), initial encounter (principal); G92.8 Other toxic encephalopathy; U07.1 COVID-19; F33.9 Major depressive disorder, recurrent, unspecified; K86.1 Other chronic pancreatitis; F11.20 Opioid dependence, uncomplicated; R11.2 Nausea with vomiting, unspecified; F12.20 Cannabis dependence, uncomplicated; R53.1 Weakness; G89.4 Chronic pain syndrome; E11.21 Type 2 diabetes mellitus with diabetic nephropathy; E11.65 Type 2 diabetes mellitus with hyperglycemia; E78.5 Hyperlipidemia, unspecified; I10 Essential (primary) hypertension; G47.00 Insomnia, unspecified; F41.9 Anxiety disorder, unspecified; K75.81 Nonalcoholic steatohepatitis (NASH); Z79.84 Long term (current) use of oral hypoglycemic drugs; Z79.4 Long term (current) use of insulin
CPT/HCPCS: 36415; 70450; 70496; 70498; 70551; 71045; 80048; 80053; 80175; 80305; 81001; 82009; 82140; 82550; 82553; 82962; 83605; 83735; 84100; 84145; 84146; 84443; 84484; 85025; 85610; 85730; 86850; 86900; 86901; 87040; 87045; 87086; 87338; 87493; 87635; 87797; 87899; 93005; 93010; 94150; 96361; 96374; 99285; 99291; 99292; C9803; Q3014; A9270; J1650; J1815; J2060; J2310; J2405; J3475

== ENCOUNTER 2022-01-26 18:10 | Emergency (ER) | payer OTHER, SELFPAY ==
[2021-09-08 21:02] VITALS: BMI 26.8
[2022-01-26] VITALS (7 sets, daily range): BP systolic 169–204; BP diastolic 78–99; PULSE 66–72; RESP 14; O2SAT 93–99; BMI 24.7
[2022-01-26 19:34] LABS: Add Manual Diff / Slide Review NO; Basophils Absolute Auto 0 /uL (0-100); Basophils Percent Auto 0.3 % (0-2); Eosinophils Absolute Auto 0 /uL (0-450); Eosinophils Percent Auto 0.5 % (2-4); Hematocrit 31.4 % (36-46); Hemoglobin 10.5 g/dL (12.0-16.0); Lymphocytes Absolute Auto 900 /uL (1100-4500); Lymphocytes Percent Auto 10.8 % (25-40); Mean Corpuscular HGB Conc 33.5 % (30-36); Mean Corpuscular Hemoglobin 26.6 PG (26-34); Mean Corpuscular Volume 79.4 fL (80-100); Monocytes Absolute Auto 500 /uL (0-900); Monocytes Percent Auto 6.1 % (3-14); Neutrophils Absolute Auto 6700 /uL (1500-7000); Neutrophils Percent Auto 82.3 % (50-75); Platelet Count 340 X10^3/uL (150-400); Red Blood Cell Count 3.95 X10^6/uL (4.0-5.2); Red Cell Distribution Width 15.2 % (11.6-14.8); White Blood Cell Count 8.1 X10^3/uL (4.5-11.0)
[2022-01-26 19:49] LABS: Alanine Aminotransferase 34 IU/L (<35); Albumin 3.9 g/dL (3.5-5.0); Albumin Globulin Ratio 1.2 (1.0-2.8); Alkaline Phosphatase 481 U/L (38-126); Aspartate Aminotransferase 61 IU/L (14-36); BUN Creatinine Ratio 19.6 (6-22); Bilirubin Total 0.6 mg/dL (0.2-1.3); Blood Urea Nitrogen 10 mg/dL (7-17); Calcium 8.9 mg/dL (8.4-10.2); Carbon Dioxide 28 mmol/L (22-32); Chloride 99 mmol/L (98-107); Estimated Glomerular Filt Rate > 60 mL/min (>60); Globulin 3.2 g/dL (1.7-4.1); Glucose 152 mg/dL (70-100); HEMOLYSIS < 15 (0-50); Lipase 44 U/L (23-300); Potassium 3.6 mmol/L (3.4-5.1); Sodium 137 mmol/L (137-145); Total Protein 7.1 g/dL (6.3-8.2)
--- NOTE | 2022-01-26 21:06 | ED_ITS ---
HPI - General Adult General Chief complaint: Abdominal Pain Stated complaint: States Acute Pancreatitis Time Seen by Provider: 01/26/22 18:48 Source: patient Mode of arrival: Wheelchair History of Present Illness HPI narrative: 56-year-old woman with a history of chronic pancreatitis diabetes, chronic low back pain for which she uses Suboxone and ketamine, bipolar disorder and lower extremity peripheral neuropathy presents with mid epigastric pain that she is concerned is a recurrent episode of her pancreatitis. She felt increasing pain after eating lunch today and now is afraid to eat or drink. She has not had any vomiting and she notes that the pain started this morning. She notes no fevers. She has had problems with chronic constipation and has used MiraLax in the past but has not been doing so recently. Regarding her bipolar disorder she feels that she is appropriately treated and psychiatrically doing well at this point in time. She reports no chest pain, palpitations, headaches. She has had no lower extremity edema. Related Data Home Medications Medication Instructions Recorded Confirmed fenofibrate 160 mg tablet 160 mg PO DAILY ##0 09/19/17 09/09/21 insulin aspart U-100 100 unit/mL 10 - 25 unit SQ TIDAC ##0 09/19/17 09/08/21 subcutaneous solution (Novolog U-100 Insulin aspart) metoclopramide HCl 5 mg tablet 10 mg PO QID PRN Nausea ##0 09/19/17 09/08/21 (Reglan) metoprolol succinate 100 mg 100 mg PO DAILY ##0 09/19/17 09/09/21 tablet,extended release 24 hr (Toprol XL) quetiapine 400 mg tablet (Seroquel) 400 mg PO BEDTIME ##0 09/19/17 09/09/21 fluoxetine 20 mg capsule 60 mg PO DAILY 10/10/18 09/09/21 omega-3 acid ethyl esters 1 gram 2 cap PO BID 04/17/19 09/08/21 capsule atorvastatin 80 mg tablet 80 mg PO DAILY 01/06/20 09/08/21 buprenorphine 2 mg-naloxone 0.5 mg 1 film sublingual DAILY 01/06/20 09/09/21 sublingual film lisinopril 5 mg tablet 5 mg PO DAILY 01/06/20 09/09/21 metformin 500 mg tablet,extended 500 mg PO QAM 01/06/20 09/09/21 release 24 hr valacyclovir 500 mg tablet 500 mg PO DAILY PRN herpes 01/06/20 09/08/21 zolpidem 12.5 mg tablet,extended 12.5 mg PO BEDTIME 01/06/20 09/08/21 release,multiphase cholecalciferol (vitamin D3) 50 50 mcg PO DAILY 11/28/20 09/09/21 mcg (2,000 unit) capsule dicyclomine 20 mg tablet 20 mg PO QID PRN (Drug) Ingestion 11/28/20 09/08/21 insulin glargine 100 unit/mL 30 unit SUBCUT BID #0 mL 11/28/20 09/08/21 subcutaneous solution (Lantus U-100 Insulin) ketamine 100 mg sublingual narinder 100 mg sublingual DAILY 11/28/20 09/08/21 lamotrigine 25 mg tablet 150 mg PO DAILY 11/28/20 09/09/21 manpmm-[id number]-[id number] 2 cap PO DAILY 11/28/20 09/09/21 36,000-114,000-180,000 unit capsule,delay rel (Creon) quetiapine 100 mg tablet (Seroquel) 100 mg PO BID PRN episodes #0 tabs 11/28/20 09/09/21 tizanidine 2 mg tablet 4 mg PO Q8H PRN Spasms 11/28/20 09/09/21 vitamin B complex 1 tab PO DAILY 11/28/20 09/08/21 amlodipine 10 mg tablet 10 mg PO DAILY 09/08/21 09/08/21 [id number] 3 cap PO TIDWM 09/09/21 09/09/21 36,000-114,000-180,000 unit capsule,delay rel (Creon) Previous Rx's Medication Instructions Recorded tramadol 50 mg tablet 50 mg PO Q6-8H PRN pain #20 tabs 01/05/20 lorazepam 2 mg tablet 2 mg PO TID #0 tabs 01/08/20 ondansetron 4 mg disintegrating 4 mg PO Q4H PRN nausea and 05/26/20 tablet vomiting #20 tabs methylphenidate HCl 10 mg tablet 10 mg PO TID #90 tabs 01/09/22 Allergies Allergy/AdvReac Type Severity Reaction Status Date / Time No Known Drug Allergies Allergy Verified 07/08/22 18:23 Review of Systems Review of Systems Narrative: Remainder of complete review of systems is otherwise unremarkable except for that included in the HPI. 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 Neuropathy, diabetic Nonalcoholic steatohepatitis (HERRING) Obesity (BMI 30-39.9) Obstructive sleep apnea of adult Opiate dependence, continuous Renal insufficiency Snoring Type 2 diabetes mellitus Surgical History Gastrocnemius equinus of right lower extremity H/O hysterectomy for benign disease History of appendectomy History of cholecystectomy Lumbar post-laminectomy syndrome Right humeral fracture Family History Father COPD (chronic obstructive pulmonary disease) Mother Hypertension Sister Fibromyalgia Social History marital status: details: to [facility] household members: spouse lives independently: Yes caregiver/support person: No occupational status: unemployed Smoking Status: Never smoker alcohol intake: former substance use type: marijuana Smoking Status: Never smoker alcohol intake frequency: 0-2 drinks per day Substance Use Type: marijuana Exam Initial Vital Signs Initial Vital Signs: Vital Signs Pulse Rate 69 01/26/22 18:16 Respiratory Rate 14 01/26/22 18:16 Blood Pressure 181/92 H 01/26/22 18:16 Pulse Oximetry 99 01/26/22 18:16 Oxygen Delivery Method 01/26/22 18:16 General: Chronically ill-appearing but in no acute distress. Able to give a complete and coherent history. Well-nourished well-developed HEENT: Moist mucous membranes, normal sclera with reactive pupils, Neck: No JVD, supple Respiratory: Lungs are clear to auscultation, no wheezing no rales no rhonchi. Full and symmetrical air movement Cardiac: Regular rate and rhythm no murmurs no bruits Abdomen: Soft, minor tenderness in the upper abdominal quadrants without r ebound or guarding, good bowel tones, no flank pain Skin: Warm and dry, no rashes Neurologic: Grossly neurologically intact with no obvious asymmetries or abnormalities Extremities: No trauma, well perfused Psych: Cooperative, appropriate insight and affect Course Orders Ordered: ED Orders 01/26/22 18:24 EKG-12 Lead Stat 01/26/22 18:42 Complete Blood Count AUTO DIFF Stat Comprehensive Metabolic Panel Stat Lipase Stat 01/26/22 21:36 CT abdomen pelvis w con Stat Vital Signs Vital signs: Vital Signs - 8 hr 01/26/22 18:16 01/26/22 18:39 01/26/22 18:39 Pulse Rate 69 72 Respiratory Rate 14 Blood Pressure 181/92 H 204/99 H Pulse Oximetry 99 93 Oxygen Delivery Method Room Air 01/26/22 19:00 01/26/22 19:00 01/26/22 19:30 Pulse Rate 67 Respiratory Rate Blood Pressure 176/86 H 189/96 H Pulse Oximetry 98 Oxygen Delivery Method 01/26/22 19:30 01/26/22 20:00 01/26/22 20:00 Pulse Rate 67 66 Respiratory Rate Blood Pressure 169/78 H Pulse Oximetry 96 96 Oxygen Delivery Method 01/26/22 20:30 01/26/22 20:30 01/26/22 21:04 Pulse Rate 70 71 Respiratory Rate Blood Pressure 173/78 H Pulse Oximetry 96 97 Oxygen Delivery Method Medical Decision Making Lab Data Result diagrams: 01/26/22 18:42 01/26/22 18:42 Labs: Lab Results 01/26/22 01/26/22 Range/Units 18:42 18:42 WBC 8.1 (4.5-11.0) X10^3/uL RBC 3.95 L (4.0-5.2) X10^6/uL Hgb 10.5 L (12.0-16.0) g/dL Hct 31.4 L (36-46) % MCV 79.4 L (80-100) fL MCH 26.6 (26-34) PG MCHC 33.5 (30-36) % RDW 15.2 H (11.6-14.8) % Plt Count 340 (150-400) X10^3/uL Neut % (Auto) 82.3 H (50-75) % Lymph % (Auto) 10.8 L (25-40) % [place] % (Auto) 6.1 (3-14) % Eos % (Auto) 0.5 L (2-4) % Baso % (Auto) 0.3 (0-2) % Neut # (Auto) 6700 (9556-9599) /uL Lymph # (Auto) 900 L (4262-1256) /uL [place] # (Auto) 500 (0-900) /uL Eos # (Auto) 0 (0-450) /uL Baso # (Auto) 0 (0-100) /uL Sodium 137 (137-145) mmol/L Potassium 3.6 (3.4-5.1) mmol/L Chloride 99 (98-107) mmol/L Carbon Dioxide 28 (22-32) mmol/L BUN 10 (7-17) mg/dL Creatinine 0.51 L (0.52-1.04) mg/dL Estimated GFR > 60 (>60) mL/min BUN/Creatinine Ratio 19.6 (6-22) Glucose 152 H (70-100) mg/dL Calcium 8.9 (8.4-10.2) mg/dL Total Bilirubin 0.6 (0.2-1.3) mg/dL AST 61 H (14-36) IU/L ALT 34 (<35) IU/L Alkaline Phosphatase 481 H (38-126) U/L Total Protein 7.1 (6.3-8.2) g/dL Albumin 3.9 (3.5-5.0) g/dL Globulin 3.2 (1.7-4.1) g/dL Albumin/Globulin Ratio 1.2 (1.0-2.8) Lipase 44 (23-300) U/L Imaging Data CT scan - abdomen/pelvis: Radiologist's Impression: FINDINGS:? Image quality:? Excellent.? ? Lung bases:? There is mild dependent atelectasis and scarring in the right lower lobe.? ? ? Heart:? Heart is normal in size. ? ? ABDOMEN: Liver:? The liver is lobulated in contour without a discrete mass.? There is mild intrahepatic biliary ductal dilatation redemonstrated with mild indistinct periportal edema. Gallbladder:? Surgically absent. Biliary ducts:? There is borderline extrahepatic biliary ductal dilatation with the common bile duct measuring up to 0.8 cm.? There is a calcification in the region of the ampulla measuring approximately 0.6 cm which may represent an ampullary stone versus pancreatic parenchymal calcification. Pancreas:? Diffuse foci of calcifications are redemonstrated in the pancreas consistent with sequelae of chronic pancreatitis.? No peripancreatic fat stranding or fluid to suggest acute pancreatitis.? No definite pancreatic duct dilatation.? No loculated peripancreatic fluid collections. Spleen:? The spleen is enlarged, measuring up to 15.2 cm. Adrenal Glands:? No adrenal nodules.? ? Kidneys and Ureters:? No hydronephrosis.? ? ? Stomach and Bowel:? Stomach and small bowel loops are normal in caliber and wall thickness.? There are surgical sutures along the cecum likely related to prior appendectomy.? No pericecal inflammatory changes.? There is moderate stool distention within the colon suggestive of constipation.? There is mild wall thickening in the rectum.? Peritoneum:? No abnormal intraperitoneal fluid.? No free air.? ? Ventral Wall: ? No hernia.? Abdominal Nodes:? No retroperitoneal or mesenteric adenopathy by size criteria.? Vessels:? Aorta and inferior vena cava are normal in size.? There are splenic varices.? ? PELVIS: Pelvic Organs:? Unremarkable.? ? Bladder:? Unremarkable.? ? Pelvic Nodes: No enlarged lymph nodes.? Miscellaneous: No inguinal hernias are seen. ? ? ? Bones:? Visualized osseous structures demonstrate no suspicious focal lesions. ? IMPRESSION:? ? 1. No CT evidence of acute pancreatitis.? Scattered foci of pancreatic calcifications redemonstrated consistent sequelae of chronic pancreatitis.? No definite pancreatic duct dilatation or loculated peripancreatic fluid collections. ? 2. Mild intra and extrahepatic biliary ductal dilatation with mild indistinct nonspecific intrahepatic periportal edema.? A small calcification is demonstrated in the region of the ampulla which may represent an ampullary stone or adjacent pancreatic calcification. ? 3. Moderate colonic stool distention suggestive of constipation without definite bowel obstruction.? There is suspected bowel wall thickening in the rectum.? Recommend correlation clinically and consider further evaluation with colonoscopy. ? 4. Lobulated [place] contour redemonstrated.? Recommend correlation clinically for possible cirrhosis. ? 5. Splenomegaly and splenic varices suggestive of portal hypertension.? ? ? Dictated by: Rom Leslie M.D. on 01/26/2022 at 22:39 ? ? MDM Narrative Medical decision making narrative: 56-year-old woman with history of chronic pancreatitis and recurrent abdominal pain. Lipase is normal CT scan does not suggest acute pancreatitis but does suggest moderate stool load overall. There is no evidence of bowel obstruction, acute intra-abdominal infection, pancreatitis, choledocholithiasis, ascending cholangitis or alternate explanation for her pain at this time. Suggested magnesium citrate and she felt that that likely would be quite helpful and was more than willing to go back to using daily MiraLax to prevent recurrent symptoms. Questions were answered and she is safe for home discharge Discharge Plan Departure Patient Disposition: Home Clinical Impression: Abdominal pain Qualifiers: Abdominal location: upper abdomen, unspecified Qualified Code(s): R10.10 - Upper abdominal pain, unspecified Constipation Qualifiers: Constipation type: drug induced constipation Qualified Code(s): K59.03 - Drug induced constipation Instructions: DI for Abdominal Pain-Adult Activity Restrictions/Additional Instructions: Thank you for coming in today Your lab work and CT scan do not suggest pancreatitis. There is no evidence of acute infection, bowel obstruction for surgical abnormality to cause her pain today. Your CT scan does show quite a bit of stool throughout your colon and I suspect that this is responsible for the pain that you are experiencing. Have sent you home with a bottle of magnesium citrate, this should help clean out your entire colon. Once you have had a very large bowel movement I would encourage you to continue way here daily MiraLax to prevent recurrent episodes. If you find that you are getting worse or develop any new symptoms, please feel free to return to the emergency department for further evaluation. Prescriptions: No Action metoprolol succinate [Toprol XL] 100 MG tablet extended release 24 hr 100 mg PO DAILY Qty: 0 fenofibrate 160 MG tablet 160 mg PO DAILY Qty: 0 insulin aspart U-100 [Novolog U-100 Insulin aspart] 100 UNIT/1 ML solution 10 - 25 unit SQ TIDAC Qty: 0 Rx Instructions: sliding scale metoclopramide HCl [Reglan] 5 MG tablet 10 mg PO QID PRN (Reason: Nausea) Qty: 0 quetiapine [Seroquel] 400 MG tablet 400 mg PO BEDTIME Qty: 0 Lantus U-100 Insulin 100 unit/mL solution 30 unit SUBCUT BID Qty: 0 Rx Instructions: 30 Unit in the morning & 30 units at bedtime ketamine 100 mg narinder 100 mg sublingual DAILY quetiapine [Seroquel] 100 mg tablet 100 mg PO BID PRN (Reason: episodes) Qty: 0 tizanidine 2 mg tablet 4 mg PO Q8H PRN (Reason: Spasms) Creon 36,000-114,000- 180,000 unit capsule,delayed release(DR/EC) 2 cap PO DAILY Rx Instructions: administer with meals and/or snacks vitamin B complex Tablet 1 tab PO DAILY cholecalciferol (vitamin D3) 50 mcg (2,000 unit) capsule 50 mcg PO DAILY lamotrigine 25 mg tablet 150 mg PO DAILY dicyclomine 20 mg tablet 20 mg PO QID PRN (Reason: (Drug) Ingestion) methylphenidate HCl 10 mg tablet 10 mg PO TID Qty: 90 0RF omega-3 acid ethyl esters 1 gram Capsule 2 cap PO BID ondansetron 4 mg tablet,disintegrating 4 mg PO Q4H PRN (Reason: nausea and vomiting) Qty: 20 0RF amlodipine 10 mg tablet 10 mg PO DAILY Creon 36,000-114,000- 180,000 unit capsule,delayed release(DR/EC) 3 cap PO TIDWM Rx Instructions: 3 capsules by mouth with breakfast, 2 capsules with lunch and 1 capsule with snacks tramadol 50 mg tablet 50 mg PO Q6-8H PRN (Reason: pain) Qty: 20 0RF atorvastatin 80 mg tablet 80 mg PO DAILY valacyclovir 500 mg tablet 500 mg PO DAILY PRN (Reason: herpes) lisinopril 5 mg tablet 5 mg PO DAILY metformin 500 mg tablet extended release 24 hr 500 mg PO QAM zolpidem 12.5 mg tablet,ext release multiphase 12.5 mg PO BEDTIME buprenorphine-naloxone 2-0.5 mg film 1 film sublingual DAILY lorazepam 2 MG tablet 2 mg PO TID Qty: 0 0RF Rx Instructions: was taking 12 mg / day, decreased to 6 mg / day upon discharge 09/03/21 fluoxetine 20 mg capsule 60 mg PO DAILY Hold Instructions: Insurance denied; PA pending Referrals: Helen Smith MD [Primary Care Provider] -
--- NOTE | 2022-01-26 21:36 | DI.CT.S_ITS ---
PROCEDURE: CT ABDOMEN PELVIS W CON INDICATIONS: upper abd pain, h/o acute pancreatitis TECHNIQUE: After the administration of IV contrast, axial sections were acquired from the lung bases to the pubic symphysis. Coronal and sagittal reformats were performed. For radiation dose reduction, the following was used: automated exposure control, adjustment of mA and/or kV according to patient size. COMPARISON: [facility], CT, CT ABDOMEN PELVIS W CON, 09/02/2021, 1:05. FINDINGS: Image quality: Excellent. Lung bases: There is mild dependent atelectasis and scarring in the right lower lobe. Heart: Heart is normal in size. ABDOMEN: Liver: The liver is lobulated in contour without a discrete mass. There is mild intrahepatic biliary ductal dilatation redemonstrated with mild indistinct periportal edema. Gallbladder: Surgically absent. Biliary ducts: There is borderline extrahepatic biliary ductal dilatation with the common bile duct measuring up to 0.8 cm. There is a calcification in the region of the ampulla measuring approximately 0.6 cm which may represent an ampullary stone versus pancreatic parenchymal calcification. Pancreas: Diffuse foci of calcifications are redemonstrated in the pancreas consistent with sequelae of chronic pancreatitis. No peripancreatic fat stranding or fluid to suggest acute pancreatitis. No definite pancreatic duct dilatation. No loculated peripancreatic fluid collections. Spleen: The spleen is enlarged, measuring up to 15.2 cm. Adrenal Glands: No adrenal nodules. Kidneys and Ureters: No hydronephrosis. Stomach and Bowel: Stomach and small bowel loops are normal in caliber and wall thickness. There are surgical sutures along the cecum likely related to prior appendectomy. No pericecal inflammatory changes. There is moderate stool distention within the colon suggestive of constipation. There is mild wall thickening in the rectum. Peritoneum: No abnormal intraperitoneal fluid. No free air. Ventral Wall: No hernia. Abdominal Nodes: No retroperitoneal or mesenteric adenopathy by size criteria. Vessels: Aorta and inferior vena cava are normal in size. There are splenic varices. PELVIS: Pelvic Organs: Unremarkable. Bladder: Unremarkable. Pelvic Nodes: No enlarged lymph nodes. Miscellaneous: No inguinal hernias are seen. Bones: Visualized osseous structures demonstrate no suspicious focal lesions. IMPRESSION: 1. No CT evidence of acute pancreatitis. Scattered foci of pancreatic calcifications redemonstrated consistent sequelae of chronic pancreatitis. No definite pancreatic duct dilatation or loculated peripancreatic fluid collections. 2. Mild intra and extrahepatic biliary ductal dilatation with mild indistinct nonspecific intrahepatic periportal edema. A small calcification is demonstrated in the region of the ampulla which may represent an ampullary stone or adjacent pancreatic calcification. 3. Moderate colonic stool distention suggestive of constipation without definite bowel obstruction. There is suspected bowel wall thickening in the rectum. Recommend correlation clinically and consider further evaluation with colonoscopy. 4. Lobulated [place] contour redemonstrated. Recommend correlation clinically for possible cirrhosis. 5. Splenomegaly and splenic varices suggestive of portal hypertension. Dictated by: Rom Leslie M.D. on 01/26/2022 at 22:39 Approved by: Rom Leslie M.D. on 01/26/2022 at 22:48
[2022-01-27] MEDS: MAGNESIUM CITRATE 300 ML SOLUTION PO (00:49)
[2022-01-27 01:01] VITALS: BP 145/78; PULSE 75; RESP 17; O2SAT 98
== END 2022-01-27 01:03 | disposition home or self-care (01) ==
PROVIDERS: Emergency Provider Emergency Medicine; PCP Internal Medicine
DX: R10.10 Upper abdominal pain, unspecified (principal); K59.03 Drug induced constipation
CPT/HCPCS: 36415; 74177; 80053; 83690; 85025; 93005; 93010; 99284; Q9967

== ENCOUNTER 2022-02-22 13:58 | Emergency (ER) | payer OTHER, SELFPAY ==
[2021-09-08 21:02] VITALS: BMI 26.8
[2022-02-22 14:15] VITALS: BP 206/106; PULSE 64; RESP 18; TEMP 36.3; O2SAT 100; BMI 25.0
[2022-02-22 14:57] LABS: Add Manual Diff / Slide Review NO; Basophils Absolute Auto 100 /uL (0-100); Basophils Percent Auto 0.7 % (0-2); Eosinophils Absolute Auto 100 /uL (0-450); Eosinophils Percent Auto 1.3 % (2-4); Hematocrit 36.7 % (36-46); Hemoglobin 12.1 g/dL (12.0-16.0); Lymphocytes Absolute Auto 1300 /uL (1100-4500); Lymphocytes Percent Auto 17.2 % (25-40); Mean Corpuscular Hemoglobin 26.1 PG (26-34); Mean Corpuscular Volume 79.1 fL (80-100); Monocytes Absolute Auto 400 /uL (0-900); Monocytes Percent Auto 5.8 % (3-14); Neutrophils Absolute Auto 5600 /uL (1500-7000); Platelet Count 323 X10^3/uL (150-400); Red Blood Cell Count 4.64 X10^6/uL (4.0-5.2); Red Cell Distribution Width 15.7 % (11.6-14.8); White Blood Cell Count 7.5 X10^3/uL (4.5-11.0)
[2022-02-22 15:04] LABS: Alanine Aminotransferase 57 IU/L (<35); Albumin 4.5 g/dL (3.5-5.0); Albumin Globulin Ratio 1.3 (1.0-2.8); Alkaline Phosphatase 613 U/L (38-126); Aspartate Aminotransferase 73 IU/L (14-36); Bilirubin Total 0.6 mg/dL (0.2-1.3); Blood Urea Nitrogen 11 mg/dL (7-17); Calcium 9.8 mg/dL (8.4-10.2); Carbon Dioxide 33 mmol/L (22-32); Chloride 98 mmol/L (98-107); Estimated Glomerular Filt Rate > 60 mL/min (>60); Globulin 3.6 g/dL (1.7-4.1); Glucose 108 mg/dL (70-100); HEMOLYSIS 17 (0-50); Lipase 37 U/L (23-300); Potassium 4.7 mmol/L (3.4-5.1); Sodium 138 mmol/L (137-145); Total Protein 8.1 g/dL (6.3-8.2)
--- NOTE | 2022-02-22 17:06 | ED_ITS ---
HPI - Nausea/Vomiting/Diarrhea <Dania Huff [facility] - Last Filed: 02/22/22 20:12> General Chief complaint: Nausea/Vomiting/Diarrhea Stated complaint: Vomiting, seems confused Time Seen by Provider: 02/22/22 17:04 Source: patient Mode of arrival: Wheelchair History of Present Illness HPI Narrative: This is a 56-year-old female with history of chronic pancreatitis, diabetes, chronic low back pain for which she uses Suboxone and ketamine, bipolar disorder and lower extremity peripheral neuropathy presents with mid epigastric pain that she is concerned is a recurrent episode of her pancreatitis.? She states that she recently discontinued taking her Protonix as she thought it was making her feel worse, she states that she started taking enzymes when she eats and she is not having success with keeping things down today and yesterday. She endorses worsening epigastric pain, is worse when she wakes up in the morning, also after she eats. She denies any recent fever, states that she is had vomiting today with her pain. She denies any lower abdominal pain, she has a history of chronic constipation and has used MiraLax in the past but has not been doing so recently.? Regarding her bipolar disorder she feels that she is appropriately treated and psychiatrically doing well at this point in time.? She reports no chest pain, palpitations, headaches.? She has had no lower extremity edema. Related Data Home Medications Medication Instructions Recorded Confirmed fenofibrate 160 mg tablet 160 mg PO DAILY ##0 09/19/17 09/09/21 insulin aspart U-100 100 unit/mL 10 - 25 unit SQ TIDAC ##0 09/19/17 09/08/21 subcutaneous solution (Novolog U-100 Insulin aspart) metoclopramide HCl 5 mg tablet 10 mg PO QID PRN Nausea ##0 09/19/17 09/08/21 (Reglan) metoprolol succinate 100 mg 100 mg PO DAILY ##0 09/19/17 09/09/21 tablet,extended release 24 hr (Toprol XL) quetiapine 400 mg tablet (Seroquel) 400 mg PO BEDTIME ##0 09/19/17 09/09/21 fluoxetine 20 mg capsule 60 mg PO DAILY 10/10/18 09/09/21 omega-3 acid ethyl esters 1 gram 2 cap PO BID 04/17/19 09/08/21 capsule atorvastatin 80 mg tablet 80 mg PO DAILY 01/06/20 09/08/21 buprenorphine 2 mg-naloxone 0.5 mg 1 film sublingual DAILY 01/06/20 09/09/21 sublingual film lisinopril 5 mg tablet 5 mg PO DAILY 01/06/20 09/09/21 metformin 500 mg tablet,extended 500 mg PO QAM 01/06/20 09/09/21 release 24 hr valacyclovir 500 mg tablet 500 mg PO DAILY PRN herpes 01/06/20 09/08/21 zolpidem 12.5 mg tablet,extended 12.5 mg PO BEDTIME 01/06/20 09/08/21 release,multiphase cholecalciferol (vitamin D3) 50 50 mcg PO DAILY 11/28/20 09/09/21 mcg (2,000 unit) capsule dicyclomine 20 mg tablet 20 mg PO QID PRN (Drug) Ingestion 11/28/20 09/08/21 insulin glargine 100 unit/mL 30 unit SUBCUT BID #0 mL 11/28/20 09/08/21 subcutaneous solution (Lantus U-100 Insulin) ketamine 100 mg sublingual narinder 100 mg sublingual DAILY 11/28/20 09/08/21 lamotrigine 25 mg tablet 150 mg PO DAILY 11/28/20 09/09/21 vojxoi-[id number]-[id number] 2 cap PO DAILY 11/28/20 09/09/21 36,000-114,000-180,000 unit capsule,delay rel (Creon) quetiapine 100 mg tablet (Seroquel) 100 mg PO BID PRN episodes #0 tabs 11/28/20 09/09/21 tizanidine 2 mg tablet 4 mg PO Q8H PRN Spasms 11/28/20 09/09/21 vitamin B complex 1 tab PO DAILY 11/28/20 09/08/21 amlodipine 10 mg tablet 10 mg PO DAILY 09/08/21 09/08/21 ltyfaw-ylnbzgzl-[id number] 3 cap PO TIDWM 09/09/21 09/09/21 36,000-114,000-180,000 unit capsule,delay rel (Creon) Previous Rx's Medication Instructions Recorded tramadol 50 mg tablet 50 mg PO Q6-8H PRN pain #20 tabs 01/05/20 lorazepam 2 mg tablet 2 mg PO TID #0 tabs 01/08/20 ondansetron 4 mg disintegrating 4 mg PO Q4H PRN nausea and 05/26/20 tablet vomiting #20 tabs methylphenidate HCl 10 mg tablet 10 mg PO TID #90 tabs 01/09/22 metoclopramide HCl 10 mg tablet 10 mg PO Q8HR PRN nausea and 02/22/22 (Reglan) vomiting #20 tabs omeprazole 20 mg tablet,delayed 20 mg PO DAILY heart burn #30 tabs 02/22/22 release ondansetron 4 mg disintegrating 4 mg PO Q8H PRN nausea and 02/22/22 tablet vomiting #10 tabs Allergies Allergy/AdvReac Type Severity Reaction Status Date / Time No Known Drug Allergies Allergy Verified 01/26/22 18:23 Review of Systems <MOY Whitney - Last Filed: 02/22/22 20:12> Review of Systems Narrative: General: denies fever, chills, malaise, sweats, fatigue Head/Neck: denies headache, neck pain, dizziness Eyes: denies visual changes, eye pain Cardio: denies chest pain, palpitations, edema Respiratory: denies dyspnea, cough, orthopnea GI: Endorses epigastric pain with nausea and vomiting, denies any diarrhea but endorses constipation : denies dysuria, hematuria, urinary retention, frequency or incontinence MSK: denies joint pain, muscle weakness Skin: denies rash, itching, skin lesions or other Neuro: denies numbness, tingling Patient History <MOY Whitney - Last Filed: 02/22/22 20:12> Medical History Acute dehydration Acute infection of right ear Acute kidney injury Anxiety Arm pain Arthritis Benzodiazepine dependence, continuous Bipolar 1 disorder Chronic pain syndrome Chronic pancreatitis Episode of syncope Fracture of right foot Herniated nucleus pulposus, L4-5 History of pulmonary embolism Hypercholesterolemia with hypertriglyceridemia Hypersomnia Hypertension Insulin dependent diabetes mellitus Intractable vomiting with nausea Major depressive disorder 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 associated with adverse incidents Neuropathy, diabetic Nonalcoholic steatohepatitis (HERRING) Obesity (BMI 30-39.9) Obstructive sleep apnea of adult Opiate dependence, continuous Renal insufficiency Snoring Type 2 diabetes mellitus Surgical History Gastrocnemius equinus of right lower extremity H/O hysterectomy for benign disease History of appendectomy History of cholecystectomy Lumbar post-laminectomy syndrome Right humeral fracture Family History Father COPD (chronic obstructive pulmonary disease) Mother Hypertension Sister Fibromyalgia Social History marital status: details: to Arnie household members: spouse lives independently: Yes caregiver/support person: No occupational status: unemployed Smoking Status: Never smoker alcohol intake: former substance use type: marijuana Smoking Status: Never smoker alcohol intake frequency: 0-2 drinks per day Substance Use Type: does not use Exam <MOY Whitney - Last Filed: 02/22/22 20:12> Narrative Exam Narrative: Independently reviewed vitals signs and nursing notes. General: cooperative, comfortable, in no acute distress, well groomed obese, states that her pain is under control Head: atraumatic, symmetrical facial expressions Neck: supple Eyes: equal round and reactive, EOMI, conjunctiva normal Nose: nares patent, no rhinorrhea Mouth/Throat: moist mucus membranes Cardiovascular: regular rate and rhythm, no peripheral edema, warm extremities without lower extremity edema Respiratory: normal effort, able to speak in complete sentences, no audible wheezing, stridor, or rales. No retractions or tachypnea. GI: abdomen soft, nontender to palpation, nondistended, no masses, no exquisite tenderness with exam, without guarding or rebound. MSK: moves all extremities, neurovascularly intact, no weakness, normal tone Skin: brisk capillary refill, no rash, no erythema Neuro: normal speech and cognition, A&O x3 Psych: mental status is grossly normal, congruent mood, normal affect, pleasant and cooperative Initial Vital Signs Initial Vital Signs: Vital Signs Temperature 97.4 F L 02/22/22 14:15 Pulse Rate 64 02/22/22 14:15 Respiratory Rate 18 02/22/22 14:15 Blood Pressure 206/106 H 02/22/22 14:15 Pulse Oximetry 100 02/22/22 14:15 Oxygen Delivery Method 02/22/22 14:15 <Cortney Graham DO - Last Filed: 03/02/22 08:00> Initial Vital Signs Initial Vital Signs: Vital Signs Temperature 97.4 F L 02/22/22 14:15 Pulse Rate 64 02/22/22 14:15 Respiratory Rate 18 02/22/22 14:15 Blood Pressure 206/106 H 02/22/22 14:15 Pulse Oximetry 100 02/22/22 14:15 Oxygen Delivery Method 02/22/22 14:15 Course <MOY Whitney - Last Filed: 02/22/22 20:12> Orders Ordered: Discontinued Medications Lactated Ringer's (Lactated Ringers) 1,000 mls @ 1,000 mls/hr IV BOLUS ONE Stop: 02/22/22 19:07 Last Infusion: 02/22/22 19:15 Dose: 0 mls/hr Documented By: Admin: 02/22/22 18:22 Dose: 1,000 mls/hr Documented By: PJ Ketorolac Tromethamine (Ketorolac 30 Mg/Ml Vial) 15 mg IV NOW ONE Stop: 02/22/22 17:45 Last Admin: 02/22/22 17:51 Dose: 15 mg Documented By: PJ Ondansetron HCl (Ondansetron 4 Mg/2 Ml Inj) 4 mg IV NOW ONE Stop: 02/22/22 17:45 Last Admin: 02/22/22 17:51 Dose: 4 mg Documented By: PJ Pantoprazole Sodium (Pantoprazole 40 Mg Vial) 20 mg IV NOW ONE Stop: 02/22/22 18:16 Last Admin: 02/22/22 18:21 Dose: 20 mg Documented By: PJ Vital Signs Vital signs: Vital Signs - 8 hr 02/22/22 14:15 02/22/22 19:15 Temperature 97.4 F L Pulse Rate 64 70 Respiratory Rate 18 Blood Pressure 206/106 H 201/113 H Pulse Oximetry 100 99 Oxygen Delivery Method Room Air Room Air <Cortney Graham DO - Last Filed: 03/02/22 08:00> Orders Ordered: Discontinued Medications Lactated Ringer's (Lactated Ringers) 1,000 mls @ 1,000 mls/hr IV BOLUS ONE Stop: 02/22/22 19:07 Last Infusion: 02/22/22 19:15 Dose: 0 mls/hr Documented By: Admin: 02/22/22 18:22 Dose: 1,000 mls/hr Documented By: PJ Ketorolac Tromethamine (Ketorolac 30 Mg/Ml Vial) 15 mg IV NOW ONE Stop: 02/22/22 17:45 Last Admin: 02/22/22 17:51 Dose: 15 mg Documented By: PJ Ondansetron HCl (Ondansetron 4 Mg/2 Ml Inj) 4 mg IV NOW ONE Stop: 02/22/22 17:45 Last Admin: 02/22/22 17:51 Dose: 4 mg Documented By: PJ Pantoprazole Sodium (Pantoprazole 40 Mg Vial) 20 mg IV NOW ONE Stop: 02/22/22 18:16 Last Admin: 02/22/22 18:21 Dose: 20 mg Documented By: PJ Vital Signs Vital signs: Vital Signs - 8 hr 02/22/22 14:15 02/22/22 19:15 Temperature 97.4 F L Pulse Rate 64 70 Respiratory Rate 18 Blood Pressure 206/106 H 201/113 H Pulse Oximetry 100 99 Oxygen Delivery Method Room Air Room Air MDM - Nausea/Vomiting/Diarrhea <MOY Whitney - Last Filed: 02/22/22 20:12> Lab Data Result diagrams: 02/22/22 14:33 02/22/22 14:33 Labs: Lab Results 02/22/22 02/22/22 02/22/22 Range/Units 14:33 14:33 14:33 WBC 7.5 (4.5-11.0) X10^3/uL RBC 4.64 (4.0-5.2) X10^6/uL Hgb 12.1 (12.0-16.0) g/dL Hct 36.7 (36-46) % MCV 79.1 L (80-100) fL MCH 26.1 (26-34) PG MCHC 33.0 (30-36) % RDW 15.7 H (11.6-14.8) % Plt Count 323 (150-400) X10^3/uL Neut % (Auto) 75.0 (50-75) % Lymph % (Auto) 17.2 L (25-40) % Boyd % (Auto) 5.8 (3-14) % Eos % (Auto) 1.3 L (2-4) % Baso % (Auto) 0.7 (0-2) % Neut # (Auto) 5600 (4271-4463) /uL Lymph # (Auto) 1300 (4071-6553) /uL Boyd # (Auto) 400 (0-900) /uL Eos # (Auto) 100 (0-450) /uL Baso # (Auto) 100 (0-100) /uL Sodium 138 (137-145) mmol/L Potassium 4.7 (3.4-5.1) mmol/L Chloride 98 (98-107) mmol/L Carbon Dioxide 33 H (22-32) mmol/L BUN 11 (7-17) mg/dL Creatinine 0.50 L (0.52-1.04) mg/dL Estimated GFR > 60 (>60) mL/min BUN/Creatinine Ratio 22.0 (6-22) Glucose 108 H (70-100) mg/dL Lactate 1.0 (0.7-2.1) mmol/L Calcium 9.8 (8.4-10.2) mg/dL Total Bilirubin 0.6 (0.2-1.3) mg/dL AST 73 H (14-36) IU/L ALT 57 H (<35) IU/L Alkaline Phosphatase 613 H (38-126) U/L Total Protein 8.1 (6.3-8.2) g/dL Albumin 4.5 (3.5-5.0) g/dL Globulin 3.6 (1.7-4.1) g/dL Albumin/Globulin Ratio 1.3 (1.0-2.8) Lipase 37 (23-300) U/L Procalcitonin (<0.5) ng/mL 02/22/22 Range/Units 14:33 WBC (4.5-11.0) X10^3/uL RBC (4.0-5.2) X10^6/uL Hgb (12.0-16.0) g/dL Hct (36-46) % MCV (80-100) fL MCH (26-34) PG MCHC (30-36) % RDW (11.6-14.8) % Plt Count (150-400) X10^3/uL Neut % (Auto) (50-75) % Lymph % (Auto) (25-40) % Boyd % (Auto) (3-14) % Eos % (Auto) (2-4) % Baso % (Auto) (0-2) % Neut # (Auto) (8673-7180) /uL Lymph # (Auto) (6340-7216) /uL Boyd # (Auto) (0-900) /uL Eos # (Auto) (0-450) /uL Baso # (Auto) (0-100) /uL Sodium (137-145) mmol/L Potassium (3.4-5.1) mmol/L Chloride (98-107) mmol/L Carbon Dioxide (22-32) mmol/L BUN (7-17) mg/dL Creatinine (0.52-1.04) mg/dL Estimated GFR (>60) mL/min BUN/Creatinine Ratio (6-22) Glucose (70-100) mg/dL Lactate (0.7-2.1) mmol/L Calcium (8.4-10.2) mg/dL Total Bilirubin (0.2-1.3) mg/dL AST (14-36) IU/L ALT (<35) IU/L Alkaline Phosphatase (38-126) U/L Total Protein (6.3-8.2) g/dL Albumin (3.5-5.0) g/dL Globulin (1.7-4.1) g/dL Albumin/Globulin Ratio (1.0-2.8) Lipase (23-300) U/L Procalcitonin 0.12 (<0.5) ng/mL Imaging Data CT scan - abdomen/pelvis: Radiologist's Impression: PROCEDURE:? CT ABDOMEN PELVIS W CON ? INDICATIONS:? pancreatitis? abscess? ? TECHNIQUE:? After the administration of IV contrast, axial sections were acquired from the lung bases to the pubic symphysis.? Coronal and sagittal reformats were performed.? For radiation dose reduction, the following was used:? automated exposure control, adjustment of mA and/or kV according to patient size. ? COMPARISON:? [facility], CT, CT ABDOMEN PELVIS W CON, 01/26/2022, 21:49.? [facility], CT, CT ABDOMEN PELVIS W CON, 09/02/2021, 1:05. ? FINDINGS:? Image quality:? Excellent.? ? Lung bases:? Unremarkable.? ? Heart:? No significant findings. ? ? ABDOMEN: Liver:? The liver demonstrates a nodular contour.? No focal liver masses are detected. Gallbladder:? Removed.? ? Biliary ducts:? Unremarkable.? ? Pancreas:? The pancreas is atrophic.? Coarse calcifications can be seen throughout the pancreas.? The pancreatic duct does not appear dilated.? No focal pancreatic inflammatory changes are seen. Spleen:? The spleen is enlarged, measuring 14.5 cm craniocaudal. Adrenal Glands:? Unremarkable.? ? Kidneys and Ureters:? Unremarkable.? ? ? Stomach and Bowel:? Stomach, small bowel loops, and colon are unremarkable.? There is a moderate amount of stool seen within the colon. Peritoneum:? No abnormal intraperitoneal fluid.? No free air.? ? Ventral Wall: ? No hernia.? Abdominal Nodes:? No retroperitoneal or mesenteric adenopathy by size criteria.? Vessels:? Aorta and inferior vena cava are normal in size.? ? PELVIS: Pelvic Organs: This patient is status post hysterectomy. No adnexal masses are seen.? Bladder:? Unremarkable.? ? Pelvic Nodes: No enlarged lymph nodes.? Miscellaneous: No inguinal hernias are seen. ? ? ? Bones:? There is [id number] levoconvex lumbar scoliosis, with multiple levels of lower thoracic and lumbar degenerative change. ? ? IMPRESSION:? ? Chronic appearing pancreatitis, without mi findings of superimposed acute pancreatitis. ? No findings of abscess can be seen. ? There is a moderate amount of stool seen within the colon. Please correlate with an underlying history of constipation.? ? Cirrhotic appearing liver, with mild splenomegaly. ? ?? Incidental note is made of: Cholecystectomy Hysterectomy Levoconvex lumbar scoliosis Spinal degenerative change ? Dictated by: Trace Hernandez M.D. on 02/22/2022 at 17:37 ? ? Approved by: Trace Hernandez M.D. on 02/22/2022 at 17:40 ? MDM Narrative Medical decision making narrative: This is a 56-year-old female with history of chronic pancreatitis, diabetes, chronic low back pain for which she uses Suboxone and ketamine, bipolar disorder and lower extremity peripheral neuropathy presents with mid epigastric pain after discontinuing her Protonix a few days ago thinking it was making her sick. She has surgical history including cholecystectomy, appendectomy, hysterectomy with bilateral oophorectomy, tonsillectomy. She was concerned about pancreatitis or worsening epigastric pain. She denies any dark stools or blood in her stool, denies any blood in her emesis and complains of nausea which was worsening today and came in for IV fluids and antiemetics. Her lab work overall is grossly reassuring, no leukocytosis or anemia, no electrolyte abnormalities, creatinine stable at 0.5, no elevation in total bilirubin, 0.6, AST ALT and alkaline phosphatase are elevated compared with her most recent lab work but overall not elevated compared with all priors before that. Her pain was under control, no other significant findings on her lab work, procalcitonin was 0.12, lipase of 37. She is not had any dysuria or other abdominal pain. Due to patient's history of pancreatitis CT imaging of her abdomen and pelvis was completed. Findings include chronic appearing pancreatitis without mi findings of superimposed acute pancreatitis. No findings of an abscess can be seen, there is a moderate amount of stool seen within the colon. Cirrhotic appearing liver with mild splenomegaly. This is most likely chronic pancreatitis, her pain is under control, no indications for antibiotics at this time. A refill of her Reglan was provided, also started her on omeprazole for her epigastric pain and encouraged her to follow-up with her PCP for H pylori testing or upper endoscopy as needed. Patient states that she is comfortable and is okay to go home. She is given strict return precautions. No peritoneal signs on abdominal exam. Patient remains p.o. tolerant. Serial abdominal exam without increase in abdominal pain. Given history and exam, low suspicion for acute abdominal process, such as acute pancreatitis, perforated viscus, atypical appendicitis, colitis, diverticulitis or intra-abdominal abscess or fluid collection. Extensive conversation about ER return precautions and need for close follow-up. Patient is appropriate and amenable to discharge home. Vital signs are stable on repeat examination is unremarkable. Patient has been informed of results. Patient has been given strict return to ER precautions for any new or worsening symptoms. Patient understands to follow up closely with outpatient providers as instructed. Patient understands plan and agrees to discharge home. All questions and concerns answered at this time. <Cortney Graham, DO - Last Filed: 03/02/22 08:00> Lab Data Labs: Lab Results 02/22/22 02/22/22 02/22/22 Range/Units 14:33 14:33 14:33 WBC 7.5 (4.5-11.0) X10^3/uL RBC 4.64 (4.0-5.2) X10^6/uL Hgb 12.1 (12.0-16.0) g/dL Hct 36.7 (36-46) % MCV 79.1 L (80-100) fL MCH 26.1 (26-34) PG MCHC 33.0 (30-36) % RDW 15.7 H (11.6-14.8) % Plt Count 323 (150-400) X10^3/uL Neut % (Auto) 75.0 (50-75) % Lymph % (Auto) 17.2 L (25-40) % Boyd % (Auto) 5.8 (3-14) % Eos % (Auto) 1.3 L (2-4) % Baso % (Auto) 0.7 (0-2) % Neut # (Auto) 5600 (9375-4935) /uL Lymph # (Auto) 1300 (5173-8557) /uL Boyd # (Auto) 400 (0-900) /uL Eos # (Auto) 100 (0-450) /uL Baso # (Auto) 100 (0-100) /uL Sodium 138 (137-145) mmol/L Potassium 4.7 (3.4-5.1) mmol/L Chloride 98 (98-107) mmol/L Carbon Dioxide 33 H (22-32) mmol/L BUN 11 (7-17) mg/dL Creatinine 0.50 L (0.52-1.04) mg/dL Estimated GFR > 60 (>60) mL/min BUN/Creatinine Ratio 22.0 (6-22) Glucose 108 H (70-100) mg/dL Lactate 1.0 (0.7-2.1) mmol/L Calcium 9.8 (8.4-10.2) mg/dL Total Bilirubin 0.6 (0.2-1.3) mg/dL AST 73 H (14-36) IU/L ALT 57 H (<35) IU/L Alkaline Phosphatase 613 H (38-126) U/L Total Protein 8.1 (6.3-8.2) g/dL Albumin 4.5 (3.5-5.0) g/dL Globulin 3.6 (1.7-4.1) g/dL Albumin/Globulin Ratio 1.3 (1.0-2.8) Lipase 37 (23-300) U/L Procalcitonin (<0.5) ng/mL 02/22/22 Range/Units 14:33 WBC (4.5-11.0) X10^3/uL RBC (4.0-5.2) X10^6/uL Hgb (12.0-16.0) g/dL Hct (36-46) % MCV (80-100) fL MCH (26-34) PG MCHC (30-36) % RDW (11.6-14.8) % Plt Count (150-400) X10^3/uL Neut % (Auto) (50-75) % Lymph % (Auto) (25-40) % Boyd % (Auto) (3-14) % Eos % (Auto) (2-4) % Baso % (Auto) (0-2) % Neut # (Auto) (3168-1188) /uL Lymph # (Auto) (6853-2313) /uL Boyd # (Auto) (0-900) /uL Eos # (Auto) (0-450) /uL Baso # (Auto) (0-100) /uL Sodium (137-145) mmol/L Potassium (3.4-5.1) mmol/L Chloride (98-107) mmol/L Carbon Dioxide (22-32) mmol/L BUN (7-17) mg/dL Creatinine (0.52-1.04) mg/dL Estimated GFR (>60) mL/min BUN/Creatinine Ratio (6-22) Glucose (70-100) mg/dL Lactate (0.7-2.1) mmol/L Calcium (8.4-10.2) mg/dL Total Bilirubin (0.2-1.3) mg/dL AST (14-36) IU/L ALT (<35) IU/L Alkaline Phosphatase (38-126) U/L Total Protein (6.3-8.2) g/dL Albumin (3.5-5.0) g/dL Globulin (1.7-4.1) g/dL Albumin/Globulin Ratio (1.0-2.8) Lipase (23-300) U/L Procalcitonin 0.12 (<0.5) ng/mL Discharge Plan Departure Patient Disposition: Home Clinical Impression: Acute epigastric pain Nausea and vomiting Qualifiers: Vomiting type: unspecified Qualified Code(s): R11.2 - Nausea with vomiting, unspecified Instructions: DI for Epigastric Pain, Nausea and Vomiting-Adult Activity Restrictions/Additional Instructions: *You have been diagnosed with epigastric pain, this could be heartburn or a peptic ulcer, it is likely gastritis or similar. Your CT does not show any acute or new findings, does not show acute pancreatitis and your lab work overall is fairly reassuring. Your liver enzymes are elevated today compared with her prior visit, I encourage you to follow-up with your PCP about this. Your white blood cell count is not elevated, it appears that you are hydrated even if you do not feel well, I refilled your Reglan, gave you some Zofran if needed to alternate between Reglan, please start taking omeprazole in the mornings to see if this helps with your epigastric pain. This will prevent over production of gastric acid. If this is not helpful, I want you to follow-up with your primary doctor, you may need to have endoscopy or colonoscopy sometime this year. Thank you for trusting us with your care, try to stay hydrated after taking your anti nausea medications, and avoid fatty foods as much as possible. It was a pleasure to meet you, I hope your pain stays under control, feel better soon. I want you to please follow-up with your primary care provider about your epigastric pain, it might be beneficial for you to have an upper endoscopy or H pylori testing in the future. *What to do: *Please continue to take your regular medications as directed. [ x] New medication prescriptions sent to your pharmacy: [ [facility]] [ ] New medication written as a paper prescription [ ] No new medications given *Please follow up with your primary care provider in 2-3 days, call for an appointment. Let them know you were seen in the Emergency Department and that we asked that you be seen for follow-up. We will electronically transmit a record of today's note if your PCP is in our system *If you do not have a primary care provider please contact [phone] to von baeza with one of the [facility] primary care providers. *Return to Emergency Department if you should have any new, worsening or concerning symptoms, such as [fever greater than 101F, chills, worsening pain, persistent vomiting or other bothersome symptoms] Prescriptions: New omeprazole 20 mg tablet,delayed release (DR/EC) 20 mg PO DAILY Qty: 30 0RF metoclopramide HCl [Reglan] 10 mg tablet 10 mg PO Q8HR PRN (Reason: nausea and vomiting) Qty: 20 0RF ondansetron 4 mg tablet,disintegrating 4 mg PO Q8H PRN (Reason: nausea and vomiting) Qty: 10 0RF No Action metoprolol succinate [Toprol XL] 100 MG tablet extended release 24 hr 100 mg PO DAILY Qty: 0 fenofibrate 160 MG tablet 160 mg PO DAILY Qty: 0 insulin aspart U-100 [Novolog U-100 Insulin aspart] 100 UNIT/1 ML solution 10 - 25 unit SQ TIDAC Qty: 0 Rx Instructions: sliding scale metoclopramide HCl [Reglan] 5 MG tablet 10 mg PO QID PRN (Reason: Nausea) Qty: 0 quetiapine [Seroquel] 400 MG tablet 400 mg PO BEDTIME Qty: 0 Lantus U-100 Insulin 100 unit/mL solution 30 unit SUBCUT BID Qty: 0 Rx Instructions: 30 Unit in the morning & 30 units at bedtime ketamine 100 mg narinder 100 mg sublingual DAILY quetiapine [Seroquel] 100 mg tablet 100 mg PO BID PRN (Reason: episodes) Qty: 0 tizanidine 2 mg tablet 4 mg PO Q8H PRN (Reason: Spasms) Creon 36,000-114,000- 180,000 unit capsule,delayed release(DR/EC) 2 cap PO DAILY Rx Instructions: administer with meals and/or snacks vitamin B complex Tablet 1 tab PO DAILY cholecalciferol (vitamin D3) 50 mcg (2,000 unit) capsule 50 mcg PO DAILY lamotrigine 25 mg tablet 150 mg PO DAILY dicyclomine 20 mg tablet 20 mg PO QID PRN (Reason: (Drug) Ingestion) methylphenidate HCl 10 mg tablet 10 mg PO TID Qty: 90 0RF omega-3 acid ethyl esters 1 gram Capsule 2 cap PO BID ondansetron 4 mg tablet,disintegrating 4 mg PO Q4H PRN (Reason: nausea and vomiting) Qty: 20 0RF amlodipine 10 mg tablet 10 mg PO DAILY Creon 36,000-114,000- 180,000 unit capsule,delayed release(DR/EC) 3 cap PO TIDWM Rx Instructions: 3 capsules by mouth with breakfast, 2 capsules with lunch and 1 capsule with snacks tramadol 50 mg tablet 50 mg PO Q6-8H PRN (Reason: pain) Qty: 20 0RF atorvastatin 80 mg tablet 80 mg PO DAILY valacyclovir 500 mg tablet 500 mg PO DAILY PRN (Reason: herpes) lisinopril 5 mg tablet 5 mg PO DAILY metformin 500 mg tablet extended release 24 hr 500 mg PO QAM zolpidem 12.5 mg tablet,ext release multiphase 12.5 mg PO BEDTIME buprenorphine-naloxone 2-0.5 mg film 1 film sublingual DAILY lorazepam 2 MG tablet 2 mg PO TID Qty: 0 0RF Rx Instructions: was taking 12 mg / day, decreased to 6 mg / day upon discharge 09/03/21 fluoxetine 20 mg capsule 60 mg PO DAILY Hold Instructions: Insurance denied; PA pending Referrals: [facility] [Provider Group] (For endoscopy or colonoscopy needs) Helen Smith MD [Primary Care Provider] - Visit Report Forms: Patient Portal/API <Cortney Graham DO - Last Filed: 03/02/22 08:00> Cosign ED Attending Coslashellature Attestation: I was immediately available in the department for consultation. Documentation has been reviewed.
--- NOTE | 2022-02-22 17:06 | DI.CT.S_ITS ---
PROCEDURE: CT ABDOMEN PELVIS W CON INDICATIONS: pancreatitis? abscess? TECHNIQUE: After the administration of IV contrast, axial sections were acquired from the lung bases to the pubic symphysis. Coronal and sagittal reformats were performed. For radiation dose reduction, the following was used: automated exposure control, adjustment of mA and/or kV according to patient size. COMPARISON: [facility], CT, CT ABDOMEN PELVIS W CON, 01/26/2022, 21:49. [facility], CT, CT ABDOMEN PELVIS W CON, 09/02/2021, 1:05. FINDINGS: Image quality: Excellent. Lung bases: Unremarkable. Heart: No significant findings. ABDOMEN: Liver: The liver demonstrates a nodular contour. No focal liver masses are detected. Gallbladder: Removed. Biliary ducts: Unremarkable. Pancreas: The pancreas is atrophic. Coarse calcifications can be seen throughout the pancreas. The pancreatic duct does not appear dilated. No focal pancreatic inflammatory changes are seen. Spleen: The spleen is enlarged, measuring 14.5 cm craniocaudal. Adrenal Glands: Unremarkable. Kidneys and Ureters: Unremarkable. Stomach and Bowel: Stomach, small bowel loops, and colon are unremarkable. There is a moderate amount of stool seen within the colon. Peritoneum: No abnormal intraperitoneal fluid. No free air. Ventral Wall: No hernia. Abdominal Nodes: No retroperitoneal or mesenteric adenopathy by size criteria. Vessels: Aorta and inferior vena cava are normal in size. PELVIS: Pelvic Organs: This patient is status post hysterectomy. No adnexal masses are seen. Bladder: Unremarkable. Pelvic Nodes: No enlarged lymph nodes. Miscellaneous: No inguinal hernias are seen. Bones: There is [id number] levoconvex lumbar scoliosis, with multiple levels of lower thoracic and lumbar degenerative change. IMPRESSION: Chronic appearing pancreatitis, without mi findings of superimposed acute pancreatitis. No findings of abscess can be seen. There is a moderate amount of stool seen within the colon. Please correlate with an underlying history of constipation. Cirrhotic appearing liver, with mild splenomegaly. Incidental note is made of: Cholecystectomy Hysterectomy Levoconvex lumbar scoliosis Spinal degenerative change Dictated by: Trace Hernandez M.D. on 02/22/2022 at 17:37 Approved by: Trace Hernandez M.D. on 02/22/2022 at 17:40
[2022-02-22] MEDS: KETOROLAC 30 MG/ML VIAL 15 MG IV (17:51)
[2022-02-22] MEDS: ONDANSETRON 4 MG/2 ML INJ IV (17:51)
[2022-02-22 18:12] LABS: Procalcitonin 0.12 ng/mL (<0.5)
[2022-02-22] MEDS: PANTOPRAZOLE 40 MG VIAL 20 MG IV (18:21)
[2022-02-22] MEDS: LACTATED RINGERS 1,000 ML 1000 ML IV (18:22)
[2022-02-22 19:15] VITALS: BP 201/113; PULSE 70; O2SAT 99
== END 2022-02-22 19:16 | disposition home or self-care (01) ==
PROVIDERS: Emergency Medicine; Emergency Provider Nurse Practitioner Critical Care Medicine; PCP Internal Medicine
DX: R10.13 Epigastric pain (principal); R11.2 Nausea with vomiting, unspecified
CPT/HCPCS: 36415; 74177; 80053; 83605; 83690; 84145; 85025; 96361; 96374; 96375; 99284; C9113; J1885; J2405

== ENCOUNTER 2022-07-16 13:28 | Emergency (ER) | payer OTHER, SELFPAY ==
[2022-04-26 14:55] VITALS: BMI 26.8
[2022-07-16 13:25] VITALS: BP 118/69; PULSE 66; RESP 10; TEMP 36.8; O2SAT 96; BMI 26.3
[2022-07-16 13:35] VITALS: PULSE 71; O2SAT 91
[2022-07-16 13:36] VITALS: BP 118/69; PULSE 70; O2SAT 94
[2022-07-16 13:50] LABS: Add Manual Diff / Slide Review NO; Basophils Absolute Auto 0 /uL (0-100); Basophils Percent Auto 0.2 % (0-2); Eosinophils Absolute Auto 100 /uL (0-450); Eosinophils Percent Auto 0.9 % (2-4); Hematocrit 41.5 % (36-46); Hemoglobin 13.5 g/dL (12.0-16.0); Lymphocytes Absolute Auto 900 /uL (1100-4500); Mean Corpuscular HGB Conc 32.5 % (30-36); Mean Corpuscular Hemoglobin 26.2 PG (26-34); Mean Corpuscular Volume 80.6 fL (80-100); Monocytes Absolute Auto 400 /uL (0-900); Monocytes Percent Auto 6.2 % (3-14); Neutrophils Absolute Auto 5500 /uL (1500-7000); Neutrophils Percent Auto 79.7 % (50-75); Platelet Count 253 X10^3/uL (150-400); Red Blood Cell Count 5.15 X10^6/uL (4.0-5.2); Red Cell Distribution Width 15.3 % (11.6-14.8); White Blood Cell Count 6.9 X10^3/uL (4.5-11.0)
[2022-07-16 14:00] VITALS: PULSE 63; O2SAT 94
[2022-07-16 14:01] VITALS: BP 100/60; PULSE 65; RESP 18; O2SAT 94
--- NOTE | 2022-07-16 14:06 | PC.NURSE ---
rn observed pt standing at foot of bed opening er room cabinet, rn went in room and asked pt to please return to bed. asked pt what she needed and what could i bring. pt states I need a knife rn states no we will not be getting you that. pt asked to scoot to top of bed and pt cooperated. rn asked pt why are you asking for a knife? and pt states its personal pt given blanket. curtains open in room.
[2022-07-16 14:13] LABS: Alanine Aminotransferase 122 IU/L (<35); Albumin 4.4 g/dL (3.5-5.0); Alkaline Phosphatase 976 U/L (38-126); Aspartate Aminotransferase 120 IU/L (14-36); BUN Creatinine Ratio 37.8 (6-22); Bilirubin Total 0.6 mg/dL (0.2-1.3); Blood Urea Nitrogen 28 mg/dL (7-17); Calcium 9.4 mg/dL (8.4-10.2); Carbon Dioxide 26 mmol/L (22-32); Chloride 102 mmol/L (98-107); Creatine Kinase 70 U/L (30-135); Estimated Glomerular Filt Rate > 60 mL/min (>60); Globulin 4.2 g/dL (1.7-4.1); Glucose 162 mg/dL (70-100); HEMOLYSIS < 15 (0-50); Lipase 64 U/L (23-300); Potassium 4.5 mmol/L (3.4-5.1); Sodium 141 mmol/L (137-145); Total Protein 8.6 g/dL (6.3-8.2)
[2022-07-16 14:16] LABS: Ketones (Beta-Hydroxybutyrate) 0.12 mmol/L (<0.27)
[2022-07-16 14:28] LABS: Troponin I < 0.012 ng/mL (0.01-0.034)
[2022-07-16 14:46] LABS: Acetaminophen < 10 ug/mL (10-30); Ethanol (ETOH) < 10 mg/dL; Salicylate < 1.0 mg/dL (<20)
[2022-07-16] MEDS: ONDANSETRON 4 MG/2 ML INJ IV (14:46)
--- NOTE | 2022-07-16 14:46 | PC.NURSE ---
pt gives permission to speak wiht and have visit. all medical staff and social work may speak to and share information with her .
--- NOTE | 2022-07-16 14:48 | ED_ITS ---
HPI - Abdominal Pain <Emily DO Drew - Last Filed: 07/18/22 06:53> General Chief Complaint: Abdominal Pain Stated Complaint: Pain, pancreatitis Time Seen by Provider: 07/16/22 13:31 Source: patient and EMS Mode of arrival: EMS History of Present Illness HPI narrative: Patient is a 57-year-old female history of bipolar, insulin-dependent diabetes, chronic pancreatitis presenting today with a variety of symptoms. Initially started with some abdominal pain but now she admits to suicidal thoughts. She says that she is been sick for a long time she keeps coughing up phlegm she has digestive issues. She does not really have abdominal pain now. She says she is frustrated with the medical system difficult time getting into her PCP although she saw her primary last month but needs another appointment and can not get in until September. She is that she is tired of being sick. She was going to kill herself today with injection of insulin, 6 units. She has no prior attempt of suicide. She has not been hospitalized for suicidal attempts or ideations before. She feels like her bipolar is controlled denies fever or chills. No chest pain. Patient is chronically on Suboxone and ketamine. states he gives her her ketamine for the day in the morning and she self doses Related Data Home Medications Medication Instructions Recorded Confirmed insulin aspart U-100 100 unit/mL 10 - 25 unit SQ TIDAC ##0 09/19/17 07/16/22 subcutaneous solution (Novolog U-100 Insulin aspart) metoprolol succinate 100 mg 100 mg PO DAILY ##0 09/19/17 07/16/22 tablet,extended release 24 hr (Toprol XL) omega-3 acid ethyl esters 1 gram 2 cap PO BID 04/17/19 07/16/22 capsule lisinopril 5 mg tablet 5 mg PO DAILY 01/06/20 07/16/22 metformin 500 mg tablet,extended 1,000 mg PO QAM 01/06/20 07/16/22 release 24 hr valacyclovir 500 mg tablet 500 mg PO DAILY PRN herpes 01/06/20 07/16/22 zolpidem 12.5 mg tablet,extended 20 mg PO BEDTIME 01/06/20 07/16/22 release,multiphase cholecalciferol (vitamin D3) 50 50 mcg PO DAILY 11/28/20 07/16/22 mcg (2,000 unit) capsule insulin glargine 100 unit/mL 30 unit SUBCUT QAM #0 mL 11/28/20 07/16/22 subcutaneous solution (Lantus U-100 Insulin) ketamine 100 mg sublingual narinder 200 - 300 mg sublingual Q2HR PRN 11/28/20 07/16/22 Pain (Scale Score 7-10) lamotrigine 25 mg tablet 150 mg PO DAILY 11/28/20 07/16/22 tizanidine 2 mg tablet 4 mg PO Q8H 11/28/20 07/16/22 vitamin B complex 1 tab PO DAILY 11/28/20 07/16/22 glxlyc-grvjvsji-offitkx 3 cap PO TIDWM 09/09/21 07/16/22 36,000-114,000-180,000 unit capsule,delay rel (Creon) quetiapine 100 mg tablet (Seroquel) 100 mg PO BID #0 tabs 04/24/22 07/16/22 buprenorphine 2 mg-naloxone 0.5 mg 1.5 tab sublingual DAILY 07/16/22 07/16/22 sublingual tablet empagliflozin 25 mg tablet 25 mg PO QAM 07/16/22 07/16/22 (Jardiance) fluoxetine 20 mg capsule 60 mg PO DAILY 07/16/22 07/16/22 insulin glargine 100 unit/mL 20 unit SUBCUT QPM 07/16/22 07/16/22 subcutaneous solution (Lantus U-100 Insulin) irbesartan 150 mg tablet 150 mg PO QAM 07/16/22 07/16/22 lorazepam 2 mg tablet 4 mg PO TID 07/16/22 07/16/22 methylphenidate HCl 10 mg tablet 20 mg PO TID 07/16/22 07/16/22 oxybutynin chloride 5 mg 5 mg PO QPM 07/16/22 07/16/22 tablet,extended release 24 hr rosuvastatin 40 mg tablet 40 mg PO QAM 07/16/22 07/16/22 Previous Rx's Medication Instructions Recorded omeprazole 20 mg tablet,delayed 20 mg PO DAILY heart burn #30 tabs 02/22/22 release cephalexin 500 mg capsule 500 mg PO TID #15 caps 07/17/22 Allergies Allergy/AdvReac Type Severity Reaction Status Date / Time No Known Drug Allergies Allergy Verified 01/26/22 18:23 Review of Systems <Emily Russell DO - Last Filed: 07/18/22 06:53> Review of Systems ROS Unobtainable: All systems reviewed & are unremarkable except as noted in HPI and below Patient History <Emily Russell DO - Last Filed: 07/18/22 06:53> Medical History Acute dehydration Acute infection of right ear Acute kidney injury Anxiety Arm pain Arthritis Benzodiazepine dependence, continuous Bipolar 1 disorder Chronic pain syndrome Chronic pancreatitis Episode of syncope Fracture of right foot Herniated nucleus pulposus, L4-5 History of pulmonary embolism Hypercholesterolemia with hypertriglyceridemia Hypersomnia Hypertension Insulin dependent diabetes mellitus Intractable vomiting with nausea Major depressive disorder 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 Neuropathy, diabetic Nonalcoholic steatohepatitis (HERRING) Obesity (BMI 30-39.9) Obstructive sleep apnea of adult Opiate dependence, continuous Renal insufficiency Snoring Type 2 diabetes mellitus Surgical History Gastrocnemius equinus of right lower extremity H/O hysterectomy for benign disease History of appendectomy History of cholecystectomy Lumbar post-laminectomy syndrome Right humeral fracture Family History Father COPD (chronic obstructive pulmonary disease) Mother Hypertension Sister Fibromyalgia Social History marital status: details: to Arnie household members: spouse lives independently: Yes caregiver/support person: No occupational status: unemployed Smoking Status: Never smoker alcohol intake: former substance use type: marijuana Smoking Status: Never smoker alcohol intake frequency: 0-2 drinks per day Substance Use Type: does not use Exam <Emily Russell DO - Last Filed: 07/18/22 06:53> Initial Vital Signs Initial Vital Signs: Vital Signs Temperature 98.2 F 07/16/22 13:25 Pulse Rate 66 07/16/22 13:25 Respiratory Rate 10 L 07/16/22 13:25 Blood Pressure 118/69 07/16/22 13:25 Pulse Oximetry 96 07/16/22 13:25 Oxygen Delivery Method 07/16/22 13:25 GENERAL: Alert tearful HEENT: Head atraumatic,EOMI, pupils reactive, face symmetric, moist mucous membranes CARDIOVASCULAR: Regular rate and rhythm without murmurs, rubs or gallops. RESPIRATORY: Breath sounds equal bilaterally, no wheezes rales or rhonchi. ABDOMEN: Soft, nontender. Normoactive bowel sounds all 4 quadrants. No guarding or rebound. EXTREMITIES: Normal range of motion, no clubbing or edema. Neurovascularly intact NEUROLOGICAL: Alert and oriented x4.Normal gait and speech. Physician Asst strength equal bilaterally slurring of speech but no facial droop SKIN: Warm, dry, no laceration, no petechiae, no rashes or lesions. <Matti Ledesma, DO - Last Filed: 07/17/22 15:43> Initial Vital Signs Initial Vital Signs: Vital Signs Temperature 98.2 F 07/16/22 13:25 Pulse Rate 66 07/16/22 13:25 Respiratory Rate 10 L 07/16/22 13:25 Blood Pressure 118/69 07/16/22 13:25 Pulse Oximetry 96 07/16/22 13:25 Oxygen Delivery Method 07/16/22 13:25 <Nahun Alba MD - Last Filed: 07/23/22 08:23> Initial Vital Signs Initial Vital Signs: Vital Signs Temperature 98.2 F 07/16/22 13:25 Pulse Rate 66 07/16/22 13:25 Respiratory Rate 10 L 07/16/22 13:25 Blood Pressure 118/69 07/16/22 13:25 Pulse Oximetry 96 07/16/22 13:25 Oxygen Delivery Method 07/16/22 13:25 Course <Emily Russell DO - Last Filed: 07/18/22 06:53> Orders Ordered: Discontinued Medications Lipase/Protease/Amylase (Lipase/Protease/Amylase 12/06/23 Cap) 3 cap PO QACBREAK [facility] Last Admin: 07/17/22 07:54 Dose: Not Given Documented By: CTS Fluoxetine HCl (Fluoxetine 20 Mg Capsule) 60 mg PO DAILY [facility] Last Admin: 07/17/22 08:34 Dose: 60 mg Documented By: CTS Ceftriaxone Sodium 1,000 mg/ (Sodium Chloride) 100 mls @ 200 mls/hr IV NOW ONE Stop: 07/17/22 04:52 Last Infusion: 07/17/22 06:18 Dose: 0 mls/hr Documented By: Admin: 07/17/22 05:44 Dose: 200 mls/hr Documented By: GC Ceftriaxone Sodium 1,000 mg/ (Sodium Chloride) 100 mls @ 200 mls/hr IV DAILY [facility] Insulin Glargine (Insulin Glargine 100 Unit/Ml 3ml Pen) 20 unit SUBCUT BEDTIME [facility] Last Admin: 07/16/22 23:34 Dose: 20 unit Documented By: JOSHUA Co-signed By: MIMI Insulin Glargine (Insulin Glargine 100 Unit/Ml 3ml Pen) 30 unit SUBCUT DAILY [facility] Last Admin: 07/17/22 08:38 Dose: 30 unit Documented By: CAITLIN Co-signed By: SHAQ Lamotrigine (Lamotrigine 100 Mg Tablet) 150 mg PO DAILY [facility] Last Admin: 07/17/22 08:34 Dose: 150 mg Documented By: CAITLIN Lisinopril (Lisinopril 5 Mg Tablet) 5 mg PO DAILY [facility] Last Admin: 07/17/22 08:34 Dose: 5 mg Documented By: CAITLIN Lorazepam (Lorazepam 0.5 Mg Tablet) 4 mg PO TID [facility] Last Admin: 07/17/22 11:08 Dose: 4 mg Documented By: Admin: 07/16/22 23:34 Dose: 4 mg Documented By: JOSHUA Metformin HCl (Metformin Hcl 500 Mg Tablet) 1,000 mg PO 0800 [facility] Last Admin: 07/17/22 08:34 Dose: 1,000 mg Documented By: CAITLIN Metoprolol Succinate (Metoprolol Er 50 Mg Tablet) 50 mg PO DAILY [facility] Last Admin: 07/17/22 08:34 Dose: 50 mg Documented By: CAITLIN Ondansetron HCl (Ondansetron 4 Mg/2 Ml Inj) 4 mg IV NOW ONE Stop: 07/16/22 13:32 Last Admin: 07/16/22 14:46 Dose: 4 mg Documented By: SHAQ(2) Oxybutynin (Oxybutynin 5 Mg Tablet) 5 mg PO BEDTIME [facility] Last Admin: 07/17/22 00:02 Dose: 5 mg Documented By: JOSHUA Quetiapine Fumarate (Quetiapine 100 Mg Tablet) 100 mg PO BID [facility] Last Admin: 07/17/22 09:08 Dose: Not Given Documented By: Admin: 07/17/22 08:33 Dose: 100 mg Documented By: CAITLIN Quetiapine Fumarate (Quetiapine 100 Mg Tablet) 100 mg PO NOW ONE Stop: 07/16/22 22:18 Last Admin: 07/17/22 00:02 Dose: 100 mg Documented By: JOSHUA Tizanidine HCl (Tizanidine 4 Mg Tablet) 4 mg PO TID [facility] Last Admin: 07/17/22 08:33 Dose: 4 mg Documented By: Admin: 07/17/22 00:02 Dose: 4 mg Documented By: JOSHUA Zolpidem Tartrate (Zolpidem 5 Mg Tablet) 20 mg PO BEDTIME PRN PRN Reason: Sleep Last Admin: 07/16/22 23:33 Dose: 20 mg Documented By: JOSHUA Vital Signs Vital signs: Vital Signs - 8 hr 07/17/22 09:56 07/17/22 12:51 Pulse Rate 83 75 Respiratory Rate 16 Blood Pressure 91/62 Pulse Oximetry 96 98 Oxygen Delivery Method Room Air Room Air <Matti Ledesma, DO - Last Filed: 07/17/22 15:43> Orders Ordered: Discontinued Medications Lipase/Protease/Amylase (Lipase/Protease/Amylase 12/06/23 Cap) 3 cap PO QACBREAK [facility] Last Admin: 07/17/22 07:54 Dose: Not Given Documented By: CAITLIN Fluoxetine HCl (Fluoxetine 20 Mg Capsule) 60 mg PO DAILY [facility] Last Admin: 07/17/22 08:34 Dose: 60 mg Documented By: CAITLIN Ceftriaxone Sodium 1,000 mg/ (Sodium Chloride) 100 mls @ 200 mls/hr IV NOW ONE Stop: 07/17/22 04:52 Last Infusion: 07/17/22 06:18 Dose: 0 mls/hr Documented By: Admin: 07/17/22 05:44 Dose: 200 mls/hr Documented By: JOSHUA Ceftriaxone Sodium 1,000 mg/ (Sodium Chloride) 100 mls @ 200 mls/hr IV DAILY [facility] Insulin Glargine (Insulin Glargine 100 Unit/Ml 3ml Pen) 20 unit SUBCUT BEDTIME [facility] Last Admin: 07/16/22 23:34 Dose: 20 unit Documented By: JOSHUA Co-signed By: MIMI Insulin Glargine (Insulin Glargine 100 Unit/Ml 3ml Pen) 30 unit SUBCUT DAILY [facility] Last Admin: 07/17/22 08:38 Dose: 30 unit Documented By: CAITLIN Co-signed By: SHAQ Lamotrigine (Lamotrigine 100 Mg Tablet) 150 mg PO DAILY [facility] Last Admin: 07/17/22 08:34 Dose: 150 mg Documented By: CAITLIN Lisinopril (Lisinopril 5 Mg Tablet) 5 mg PO DAILY [facility] Last Admin: 07/17/22 08:34 Dose: 5 mg Documented By: CAITLIN Lorazepam (Lorazepam 0.5 Mg Tablet) 4 mg PO TID [facility] Last Admin: 07/17/22 11:08 Dose: 4 mg Documented By: Admin: 07/16/22 23:34 Dose: 4 mg Documented By: JOSHUA Metformin HCl (Metformin Hcl 500 Mg Tablet) 1,000 mg PO 0800 [facility] Last Admin: 07/17/22 08:34 Dose: 1,000 mg Documented By: CTS Metoprolol Succinate (Metoprolol Er 50 Mg Tablet) 50 mg PO DAILY [facility] Last Admin: 07/17/22 08:34 Dose: 50 mg Documented By: CAITLIN Ondansetron HCl (Ondansetron 4 Mg/2 Ml Inj) 4 mg IV NOW ONE Stop: 07/16/22 13:32 Last Admin: 07/16/22 14:46 Dose: 4 mg Documented By: SHAQ(2) Oxybutynin (Oxybutynin 5 Mg Tablet) 5 mg PO BEDTIME [facility] Last Admin: 07/17/22 00:02 Dose: 5 mg Documented By: JOSHUA Quetiapine Fumarate (Quetiapine 100 Mg Tablet) 100 mg PO BID [facility] Last Admin: 07/17/22 09:08 Dose: Not Given Documented By: Admin: 07/17/22 08:33 Dose: 100 mg Documented By: CAITLIN Quetiapine Fumarate (Quetiapine 100 Mg Tablet) 100 mg PO NOW ONE Stop: 07/16/22 22:18 Last Admin: 07/17/22 00:02 Dose: 100 mg Documented By: JOSHUA Tizanidine HCl (Tizanidine 4 Mg Tablet) 4 mg PO TID [facility] Last Admin: 07/17/22 08:33 Dose: 4 mg Documented By: Admin: 07/17/22 00:02 Dose: 4 mg Documented By: JOSHUA Zolpidem Tartrate (Zolpidem 5 Mg Tablet) 20 mg PO BEDTIME PRN PRN Reason: Sleep Last Admin: 07/16/22 23:33 Dose: 20 mg Documented By: JOSHUA Vital Signs Vital signs: Vital Signs - 8 hr 07/17/22 09:56 07/17/22 12:51 Pulse Rate 83 75 Respiratory Rate 16 Blood Pressure 91/62 Pulse Oximetry 96 98 Oxygen Delivery Method Room Air Room Air <Nahun Alba MD - Last Filed: 07/23/22 08:23> Course Course Narrative: July 17, 2022 at 7:[address] Ledesma, patient still awaiting for placement, patient had attempted overdose with insulin. Has had chronic abdominal pain. DCR did see/evaluate patient, was CARL but now voluntary. Social work has seen patient and awaiting for placement. Rocephin given for U TI. Will need prescription for UTI after disposition Orders Ordered: Discontinued Medications Lipase/Protease/Amylase (Lipase/Protease/Amylase 12/06/23 Cap) 3 cap PO QACBREAK [facility] Last Admin: 07/17/22 07:54 Dose: Not Given Documented By: CTS Fluoxetine HCl (Fluoxetine 20 Mg Capsule) 60 mg PO DAILY [facility] Last Admin: 07/17/22 08:34 Dose: 60 mg Documented By: CTS Ceftriaxone Sodium 1,000 mg/ (Sodium Chloride) 100 mls @ 200 mls/hr IV NOW ONE Stop: 07/17/22 04:52 Last Infusion: 07/17/22 06:18 Dose: 0 mls/hr Documented By: Admin: 07/17/22 05:44 Dose: 200 mls/hr Documented By: GC Ceftriaxone Sodium 1,000 mg/ (Sodium Chloride) 100 mls @ 200 mls/hr IV DAILY [facility] Insulin Glargine (Insulin Glargine 100 Unit/Ml 3ml Pen) 20 unit SUBCUT BEDTIME [facility] Last Admin: 07/16/22 23:34 Dose: 20 unit Documented By: GC Co-signed By: SB Insulin Glargine (Insulin Glargine 100 Unit/Ml 3ml Pen) 30 unit SUBCUT DAILY [facility] Last Admin: 07/17/22 08:38 Dose: 30 unit Documented By: CTS Co-signed By: KB Lamotrigine (Lamotrigine 100 Mg Tablet) 150 mg PO DAILY [facility] Last Admin: 07/17/22 08:34 Dose: 150 mg Documented By: CTS Lisinopril (Lisinopril 5 Mg Tablet) 5 mg PO DAILY [facility] Last Admin: 07/17/22 08:34 Dose: 5 mg Documented By: CTS Lorazepam (Lorazepam 0.5 Mg Tablet) 4 mg PO TID [facility] Last Admin: 07/17/22 11:08 Dose: 4 mg Documented By: Admin: 07/16/22 23:34 Dose: 4 mg Documented By: JOSHUA Metformin HCl (Metformin Hcl 500 Mg Tablet) 1,000 mg PO 0800 [facility] Last Admin: 07/17/22 08:34 Dose: 1,000 mg Documented By: CAITLIN Metoprolol Succinate (Metoprolol Er 50 Mg Tablet) 50 mg PO DAILY [facility] Last Admin: 07/17/22 08:34 Dose: 50 mg Documented By: CAITLIN Ondansetron HCl (Ondansetron 4 Mg/2 Ml Inj) 4 mg IV NOW ONE Stop: 07/16/22 13:32 Last Admin: 07/16/22 14:46 Dose: 4 mg Documented By: SHAQ(2) Oxybutynin (Oxybutynin 5 Mg Tablet) 5 mg PO BEDTIME [facility] Last Admin: 07/17/22 00:02 Dose: 5 mg Documented By: JOSHUA Quetiapine Fumarate (Quetiapine 100 Mg Tablet) 100 mg PO BID [facility] Last Admin: 07/17/22 09:08 Dose: Not Given Documented By: Admin: 07/17/22 08:33 Dose: 100 mg Documented By: CAITLIN Quetiapine Fumarate (Quetiapine 100 Mg Tablet) 100 mg PO NOW ONE Stop: 07/16/22 22:18 Last Admin: 07/17/22 00:02 Dose: 100 mg Documented By: JOSHUA Tizanidine HCl (Tizanidine 4 Mg Tablet) 4 mg PO TID [facility] Last Admin: 07/17/22 08:33 Dose: 4 mg Documented By: Admin: 07/17/22 00:02 Dose: 4 mg Documented By: JOSHUA Zolpidem Tartrate (Zolpidem 5 Mg Tablet) 20 mg PO BEDTIME PRN PRN Reason: Sleep Last Admin: 07/16/22 23:33 Dose: 20 mg Documented By: JOSHUA Reevaluation(s) Reevaluation #1: Spoke with patient and . They are very comfortable for discharge home. They have spoken with [facility] social work. Resources provided for outpatient follow-up. Contract for safety completed and feels comfortable with patient coming home. He will continue to monitor patient's medications. Return precautions reviewed with patient and . They do need outpatient CT scan or MRI of the liver as we discussed findings on the ultrasound. Antibiotics for UTI provided. They desire discharge home. No SI or HI at time of discharge. No altered mental status. Time: 12:48 Consultations Consultation #1: Spoke with [facility] social security benefits interviewer. Patient was evaluated by her. She did review DCR work as well. Patient is not detainable. Patient is not gravely disabled. Patient to be discharged home Time: 12:15 Vital Signs Vital signs: Vital Signs - 8 hr 07/17/22 09:56 07/17/22 12:51 Pulse Rate 83 75 Respiratory Rate 16 Blood Pressure 91/62 Pulse Oximetry 96 98 Oxygen Delivery Method Room Air Room Air MDM - Abdominal Pain <Emily Russell DO - Last Filed: 07/18/22 06:53> Lab Data Result diagrams: 07/16/22 13:30 07/17/22 05:58 Labs: Lab Results 07/16/22 07/16/22 07/16/22 Range/Units 13:30 13:30 13:30 WBC 6.9 (4.5-11.0) X10^3/uL RBC 5.15 (4.0-5.2) X10^6/uL Hgb 13.5 (12.0-16.0) g/dL Hct 41.5 (36-46) % MCV 80.6 (80-100) fL MCH 26.2 (26-34) PG MCHC 32.5 (30-36) % RDW 15.3 H (11.6-14.8) % Plt Count 253 (150-400) X10^3/uL Neut % (Auto) 79.7 H (50-75) % Lymph % (Auto) 13.0 L (25-40) % Beck[place] % (Auto) 6.2 (3-14) % Eos % (Auto) 0.9 L (2-4) % Baso % (Auto) 0.2 (0-2) % Neut # (Auto) 5500 (4725-7097) /uL Lymph # (Auto) 900 L (2331-0873) /uL Beckham # (Auto) 400 (0-900) /uL Eos # (Auto) 100 (0-450) /uL Baso # (Auto) 0 (0-100) /uL Sodium 141 (137-145) mmol/L Potassium 4.5 (3.4-5.1) mmol/L Chloride 102 (98-107) mmol/L Carbon Dioxide 26 (22-32) mmol/L BUN 28 H (7-17) mg/dL Creatinine 0.74 (0.52-1.04) mg/dL Estimated GFR > 60 (>60) mL/min BUN/Creatinine Ratio 37.8 H (6-22) Glucose 162 H (70-100) mg/dL Calcium 9.4 (8.4-10.2) mg/dL Total Bilirubin 0.6 (0.2-1.3) mg/dL AST 120 H (14-36) IU/L ALT 122 H (<35) IU/L Alkaline Phosphatase 976 H (38-126) U/L Total Creatine Kinase 70 (30-135) U/L CK-MB (CK-2) TNP CK-MB (CK-2) Rel Index TNP Troponin I < 0.012 (0.01-0.034) ng/mL Total Protein 8.6 H (6.3-8.2) g/dL Albumin 4.4 (3.5-5.0) g/dL Globulin 4.2 H (1.7-4.1) g/dL Albumin/Globulin Ratio 1.0 (1.0-2.8) Lipase 64 (23-300) U/L TSH (0.47-4.68) uIU/mL Free T4 (0.78-2.19) ng/dL Urine Color Urine Appearance Urine pH (4.5-8.0) Ur Specific [place] (1.000-1.035) Urine Protein (Negative) Urine Glucose (UA) (Negative) g/dL Urine Ketones (NEGATIVE) Urine Occult Blood (Negative) Urine Nitrate (Negative) Urine Bilirubin (NEGATIVE) Urine Urobilinogen (0.2) E.U./dL Ur Leukocyte Esterase (NEGATIVE) Urine RBC (0-5/HPF) Urine WBC (0-5/HPF) Ur Squamous Epith Cells (0-5/HPF) Amorphous Sediment Urine Bacteria (None) Urine Mucus (Negative) Urine Yeast (None) Ur Culture Indicated? Salicylates (<20) mg/dL U Opiates 300ng/mL cut (Negative) Ur Oxycodone Screen (Negative) Urine Methadone Screen (Negative) Acetaminophen (10-30) ug/mL Ur Barbiturates Screen (Negative) Lamotrigine (2.0-20.0) ug/mL U Tricyclic Antidepress (Negative) Ur Phencyclidine Scrn (Negative) Ur Amphetamines Screen (Negative) U Methamphetamines Scrn (Negative) Ur MDMA Scrn (Ecstasy) (Negative) U Benzodiazepines Scrn (Negative) Urine Cocaine Screen (Negative) U Marijuana (THC) Screen (Negative) Ethyl Alcohol < 10 ( - 10) mg/dL Ketones 0.12 (<0.27) mmol/L SARS-CoV-2 (PCR) (Negative) 07/16/22 07/16/22 07/16/22 Range/Units 13:30 13:30 15:35 WBC (4.5-11.0) X10^3/uL RBC (4.0-5.2) X10^6/uL Hgb (12.0-16.0) g/dL Hct (36-46) % MCV (80-100) fL MCH (26-34) PG MCHC (30-36) % RDW (11.6-14.8) % Plt Count (150-400) X10^3/uL Neut % (Auto) (50-75) % Lymph % (Auto) (25-40) % Beckham % (Auto) (3-14) % Eos % (Auto) (2-4) % Baso % (Auto) (0-2) % Neut # (Auto) (3957-3320) /uL Lymph # (Auto) (4450-8852) /uL Beckham # (Auto) (0-900) /uL Eos # (Auto) (0-450) /uL Baso # (Auto) (0-100) /uL Sodium (137-145) mmol/L Potassium (3.4-5.1) mmol/L Chloride (98-107) mmol/L Carbon Dioxide (22-32) mmol/L BUN (7-17) mg/dL Creatinine (0.52-1.04) mg/dL Estimated GFR (>60) mL/min BUN/Creatinine Ratio (6-22) Glucose (70-100) mg/dL Calcium (8.4-10.2) mg/dL Total Bilirubin (0.2-1.3) mg/dL AST (14-36) IU/L ALT (<35) IU/L Alkaline Phosphatase (38-126) U/L Total Creatine Kinase (30-135) U/L CK-MB (CK-2) CK-MB (CK-2) Rel Index Troponin I (0.01-0.034) ng/mL Total Protein (6.3-8.2) g/dL Albumin (3.5-5.0) g/dL Globulin (1.7-4.1) g/dL Albumin/Globulin Ratio (1.0-2.8) Lipase (23-300) U/L TSH 0.444 L (0.47-4.68) uIU/mL Free T4 1.07 (0.78-2.19) ng/dL Urine Color Urine Appearance Urine pH (4.5-8.0) Ur Specific [place] (1.000-1.035) Urine Protein (Negative) Urine Glucose (UA) (Negative) g/dL Urine Ketones (NEGATIVE) Urine Occult Blood (Negative) Urine Nitrate (Negative) Urine Bilirubin (NEGATIVE) Urine Urobilinogen (0.2) E.U./dL Ur Leukocyte Esterase (NEGATIVE) Urine RBC (0-5/HPF) Urine WBC (0-5/HPF) Ur Squamous Epith Cells (0-5/HPF) Amorphous Sediment Urine Bacteria (None) Urine Mucus (Negative) Urine Yeast (None) Ur Culture Indicated? Salicylates < 1.0 (<20) mg/dL U Opiates 300ng/mL cut Negative (Negative) Ur Oxycodone Screen Negative (Negative) Urine Methadone Screen Negative (Negative) Acetaminophen < 10 (10-30) ug/mL Ur Barbiturates Screen Negative (Negative) Lamotrigine (2.0-20.0) ug/mL U Tricyclic Antidepress Negative (Negative) Ur Phencyclidine Scrn Negative (Negative) Ur Amphetamines Screen Negative (Negative) U Methamphetamines Scrn Negative (Negative) Ur MDMA Scrn (Ecstasy) Negative (Negative) U Benzodiazepines Scrn Positive H (Negative) Urine Cocaine Screen Negative (Negative) U Marijuana (THC) Screen Negative (Negative) Ethyl Alcohol ( - 10) mg/dL Ketones (<0.27) mmol/L SARS-CoV-2 (PCR) (Negative) 12/26/22 12/26/22 12/26/22 Range/Units 16:41 16:50 21:57 WBC (4.5-11.0) X10^3/uL RBC (4.0-5.2) X10^6/uL Hgb (12.0-16.0) g/dL Hct (36-46) % MCV (80-100) fL MCH (26-34) PG MCHC (30-36) % RDW (11.6-14.8) % Plt Count (150-400) X10^3/uL Neut % (Auto) (50-75) % Lymph % (Auto) (25-40) % [place] % (Auto) (3-14) % Eos % (Auto) (2-4) % Baso % (Auto) (0-2) % Neut # (Auto) (3784-1856) /uL Lymph # (Auto) (0158-2743) /uL [place] # (Auto) (0-900) /uL Eos # (Auto) (0-450) /uL Baso # (Auto) (0-100) /uL Sodium (137-145) mmol/L Potassium (3.4-5.1) mmol/L Chloride (98-107) mmol/L Carbon Dioxide (22-32) mmol/L BUN (7-17) mg/dL Creatinine (0.52-1.04) mg/dL Estimated GFR (>60) mL/min BUN/Creatinine Ratio (6-22) Glucose (70-100) mg/dL Calcium (8.4-10.2) mg/dL Total Bilirubin (0.2-1.3) mg/dL AST (14-36) IU/L ALT (<35) IU/L Alkaline Phosphatase (38-126) U/L Total Creatine Kinase (30-135) U/L CK-MB (CK-2) CK-MB (CK-2) Rel Index Troponin I (0.01-0.034) ng/mL Total Protein (6.3-8.2) g/dL Albumin (3.5-5.0) g/dL Globulin (1.7-4.1) g/dL Albumin/Globulin Ratio (1.0-2.8) Lipase (23-300) U/L TSH (0.47-4.68) uIU/mL Free T4 (0.78-2.19) ng/dL Urine Color Urine Appearance Urine pH (4.5-8.0) Ur Specific [place] (1.000-1.035) Urine Protein (Negative) Urine Glucose (UA) (Negative) g/dL Urine Ketones (NEGATIVE) Urine Occult Blood (Negative) Urine Nitrate (Negative) Urine Bilirubin (NEGATIVE) Urine Urobilinogen (0.2) E.U./dL Ur Leukocyte Esterase (NEGATIVE) Urine RBC 1-5/hpf (0-5/HPF) Urine WBC 1-5/hpf (0-5/HPF) Ur Squamous Epith Cells 1-5 /hpf (0-5/HPF) Amorphous Sediment 1+ Urine Bacteria Many (>30) H (None) Urine Mucus 1+ H (Negative) Urine Yeast 5-10/hpf H (None) Ur Culture Indicated? Specimen cultured Salicylates (<20) mg/dL U Opiates 300ng/mL cut (Negative) Ur Oxycodone Screen (Negative) Urine Methadone Screen (Negative) Acetaminophen (10-30) ug/mL Ur Barbiturates Screen (Negative) Lamotrigine 2.4 (2.0-20.0) ug/mL U Tricyclic Antidepress (Negative) Ur Phencyclidine Scrn (Negative) Ur Amphetamines Screen (Negative) U Methamphetamines Scrn (Negative) Ur MDMA Scrn (Ecstasy) (Negative) U Benzodiazepines Scrn (Negative) Urine Cocaine Screen (Negative) U Marijuana (THC) Screen (Negative) Ethyl Alcohol ( - 10) mg/dL Ketones (<0.27) mmol/L SARS-CoV-2 (PCR) Negative (Negative) 07/17/22 07/17/22 Range/Units 02:26 05:58 WBC (4.5-11.0) X10^3/uL RBC (4.0-5.2) X10^6/uL Hgb (12.0-16.0) g/dL Hct (36-46) % MCV (80-100) fL MCH (26-34) PG MCHC (30-36) % RDW (11.6-14.8) % Plt Count (150-400) X10^3/uL Neut % (Auto) (50-75) % Lymph % (Auto) (25-40) % [place] % (Auto) (3-14) % Eos % (Auto) (2-4) % Baso % (Auto) (0-2) % Neut # (Auto) (9020-6288) /uL Lymph # (Auto) (3212-9797) /uL [place] # (Auto) (0-900) /uL Eos # (Auto) (0-450) /uL Baso # (Auto) (0-100) /uL Sodium 137 (137-145) mmol/L Potassium 4.4 (3.4-5.1) mmol/L Chloride 100 (98-107) mmol/L Carbon Dioxide 28 (22-32) mmol/L BUN 26 H (7-17) mg/dL Creatinine 0.67 (0.52-1.04) mg/dL Estimated GFR > 60 (>60) mL/min BUN/Creatinine Ratio 38.8 H (6-22) Glucose 146 H (70-100) mg/dL Calcium 9.1 (8.4-10.2) mg/dL Total Bilirubin 0.5 (0.2-1.3) mg/dL AST 87 H (14-36) IU/L ALT 99 H (<35) IU/L Alkaline Phosphatase 694 H (38-126) U/L Total Creatine Kinase (30-135) U/L CK-MB (CK-2) CK-MB (CK-2) Rel Index Troponin I (0.01-0.034) ng/mL Total Protein 7.2 (6.3-8.2) g/dL Albumin 3.7 (3.5-5.0) g/dL Globulin 3.5 (1.7-4.1) g/dL Albumin/Globulin Ratio 1.1 (1.0-2.8) Lipase (23-300) U/L TSH (0.47-4.68) uIU/mL Free T4 (0.78-2.19) ng/dL Urine Color Yellow Urine Appearance Sl cloudy Urine pH 5.0 (4.5-8.0) Ur Specific [place] 1.020 (1.000-1.035) Urine Protein Trace H (Negative) Urine Glucose (UA) 2+ H (Negative) g/dL Urine Ketones Negative (NEGATIVE) Urine Occult Blood Trace-lysed (Negative) Urine Nitrate Negative (Negative) Urine Bilirubin Negative (NEGATIVE) Urine Urobilinogen 0.2 (0.2) E.U./dL Ur Leukocyte Esterase Negative (NEGATIVE) Urine RBC None seen (0-5/HPF) Urine WBC 10-30/hpf H D (0-5/HPF) Ur Squamous Epith Cells 1-5 /hpf (0-5/HPF) Amorphous Sediment Urine Bacteria Many (>30) H (None) Urine Mucus (Negative) Urine Yeast 30-100/hpf H (None) Ur Culture Indicated? Specimen cultured Salicylates (<20) mg/dL U Opiates 300ng/mL cut (Negative) Ur Oxycodone Screen (Negative) Urine Methadone Screen (Negative) Acetaminophen (10-30) ug/mL Ur Barbiturates Screen (Negative) Lamotrigine (2.0-20.0) ug/mL U Tricyclic Antidepress (Negative) Ur Phencyclidine Scrn (Negative) Ur Amphetamines Screen (Negative) U Methamphetamines Scrn (Negative) Ur MDMA Scrn (Ecstasy) (Negative) U Benzodiazepines Scrn (Negative) Urine Cocaine Screen (Negative) U Marijuana (THC) Screen (Negative) Ethyl Alcohol ( - 10) mg/dL Ketones (<0.27) mmol/L SARS-CoV-2 (PCR) (Negative) Point of care testing: Point of Care Testing Glucose POC 275 Urine Dip Bedside Urine Glucose 1000 mg/dl Bedside Urine Bilirubin - Negative Bedside Urine Ketone - Negative Urine Specific [place] 1.020 Bedside Urine Occult Blood +/- Bedside Urine pH 6.0 Bedside Urine Protein +/- 15 Bedside Urine Urobilinogen - Negative Bedside Urine Nitrite + Positive Bedside Urine Leukocytes - Negative Esterase Imaging Data US - abdomen: Radiologist's Impression: Ultrasound Report Signed Patient: Sheela Brown MR#: [id number] : 1965 Acct:[id number] Age/Sex: 57 / F Date of Service: 07/16/22 Loc: ED Accession Number: [id number] ?? Procedure: US abdomen limited Ordering Provider: Emily Russell D.O. PROCEDURE:? US ABDOMEN LIMITED ? INDICATIONS:? ELEVATED ALKALINE PHOSPHATE. H/O HERRING/CHRONIC PANCREATITIS ? TECHNIQUE:? Real-time scanning was performed of the abdominal and retroperitoneal organs, with image documentation.? ? COMPARISON:? [facility], MR, MR ABDOMEN WO/W CON, 03/03/2020, 13:56.? [facility], CT, CT ABDOMEN PELVIS W CON, 02/22/2022, 17:23.? [facility], US, US ABDOMEN LIMITED, 09/02/2021, 0:17. ? FINDINGS:? ? Liver:? Measures 14 cm in length.? Increased in echogenicity.? Heterogeneous and lobular echotexture.? Hypoechoic region in the left lobe of the liver measuring 7.5 x 4.2 x 2.2 cm.? Adjacent hypoechoic focus measuring 2.8 x 2 x 1.4 cm.? ? Gallbladder:? Absent.? ? Biliary ducts:? CHD measures 4.3 mm. CBD is not well seen. ? Pancreas:? Pancreas is not well seen. ? No free fluid is seen. ? IMPRESSION:? Exam is technically difficult due to bowel gas and acoustic windows. ? Heterogeneous cirrhotic liver morphology. ? Hypoechoic regions in the left lobe of the liver are indeterminate on this exam.? Although this could be due to fibrosis or focal fatty sparing.? This could be further evaluated with MRI of the liver or multiphase liver CT. ? The pancreas is not well seen.? CBD is not well seen. ? ? ? Dictated by: Carlitos Kilgore M.D. on 07/16/2022 at 16:21 ? ? ECG Data Interpretation: Normal sinus rhythm rate 64 [place] interval QRS [address] changes T-wave inversions similar to previous MDM Narrative Medical decision making narrative: Patient presents today with a right of complaints including abdominal pain than possible suicide ideations and attempt. However she did not actually inject herself with insulin. She is on a variety of medications including Suboxone ketamine for her depression and bipolar. Patient is not willing to go to a mental health facility but can not contract for safety at this time. Social work has been in to evaluate agrees with [facility] dispatch. Awaiting to hear back from [facility]. Patient does have some slurring of speech but she is just taken ketamine and Suboxone. endorses that this is normal behavior for her. Head CT is not done. She is noted to have mildly elevated liver enzymes no significant right upper quadrant pain. Ultrasound not specific, no specific finding is seen but difficult exam. Patient signed out to Dr. Ledesma. <Matti Ledesma, DO - Last Filed: 07/17/22 15:43> Lab Data Labs: Lab Results 07/16/22 07/16/2207/16/22 Range/Units 13:30 13:30 13:30 WBC 6.9 (4.5-11.0) X10^3/uL RBC 5.15 (4.0-5.2) X10^6/uL Hgb 13.5 (12.0-16.0) g/dL Hct 41.5 (36-46) % MCV 80.6 (80-100) fL MCH 26.2 (26-34) PG MCHC 32.5 (30-36) % RDW 15.3 H (11.6-14.8) % Plt Count 253 (150-400) X10^3/uL Neut % (Auto) 79.7 H (50-75) % Lymph % (Auto) 13.0 L (25-40) % Beck[place] % (Auto) 6.2 (3-14) % Eos % (Auto) 0.9 L (2-4) % Baso % (Auto) 0.2 (0-2) % Neut # (Auto) 5500 (0783-8146) /uL Lymph # (Auto) 900 L (5562-0445) /uL [place] # (Auto) 400 (0-900) /uL Eos # (Auto) 100 (0-450) /uL Baso # (Auto) 0 (0-100) /uL Sodium 141 (137-145) mmol/L Potassium 4.5 (3.4-5.1) mmol/L Chloride 102 (98-107) mmol/L Carbon Dioxide 26 (22-32) mmol/L BUN 28 H (7-17) mg/dL Creatinine 0.74 (0.52-1.04) mg/dL Estimated GFR > 60 (>60) mL/min BUN/Creatinine Ratio 37.8 H (6-22) Glucose 162 H (70-100) mg/dL Calcium 9.4 (8.4-10.2) mg/dL Total Bilirubin 0.6 (0.2-1.3) mg/dL AST 120 H (14-36) IU/L ALT 122 H (<35) IU/L Alkaline Phosphatase 976 H (38-126) U/L Total Creatine Kinase 70 (30-135) U/L CK-MB (CK-2) TNP CK-MB (CK-2) Rel Index TNP Troponin I < 0.012 (0.01-0.034) ng/mL Total Protein 8.6 H (6.3-8.2) g/dL Albumin 4.4 (3.5-5.0) g/dL Globulin 4.2 H (1.7-4.1) g/dL Albumin/Globulin Ratio 1.0 (1.0-2.8) Lipase 64 (23-300) U/L TSH (0.47-4.68) uIU/mL Free T4 (0.78-2.19) ng/dL Urine Color Urine Appearance Urine pH (4.5-8.0) Ur Specific [place] (1.000-1.035) Urine Protein (Negative) Urine Glucose (UA) (Negative) g/dL Urine Ketones (NEGATIVE) Urine Occult Blood (Negative) Urine Nitrate (Negative) Urine Bilirubin (NEGATIVE) Urine Urobilinogen (0.2) E.U./dL Ur Leukocyte Esterase (NEGATIVE) Urine RBC (0-5/HPF) Urine WBC (0-5/HPF) Ur Squamous Epith Cells (0-5/HPF) Amorphous Sediment Urine Bacteria (None) Urine Mucus (Negative) Urine Yeast (None) Ur Culture Indicated? Salicylates (<20) mg/dL U Opiates 300ng/mL cut (Negative) Ur Oxycodone Screen (Negative) Urine Methadone Screen (Negative) Acetaminophen (10-30) ug/mL Ur Barbiturates Screen (Negative) Lamotrigine (2.0-20.0) ug/mL U Tricyclic Antidepress (Negative) Ur Phencyclidine Scrn (Negative) Ur Amphetamines Screen (Negative) U Methamphetamines Scrn (Negative) Ur MDMA Scrn (Ecstasy) (Negative) U Benzodiazepines Scrn (Negative) Urine Cocaine Screen (Negative) U Marijuana (THC) Screen (Negative) Ethyl Alcohol < 10 ( - 10) mg/dL Ketones 0.12 (<0.27) mmol/L SARS-CoV-2 (PCR) (Negative) 07/16/22 07/16/22 07/16/22 Range/Units 13:30 13:30 15:35 WBC (4.5-11.0) X10^3/uL RBC (4.0-5.2) X10^6/uL Hgb (12.0-16.0) g/dL Hct (36-46) % MCV (80-100) fL MCH (26-34) PG MCHC (30-36) % RDW (11.6-14.8) % Plt Count (150-400) X10^3/uL Neut % (Auto) (50-75) % Lymph % (Auto) (25-40) % [place] % (Auto) (3-14) % Eos % (Auto) (2-4) % Baso % (Auto) (0-2) % Neut # (Auto) (9829-7511) /uL Lymph # (Auto) (7035-3544) /uL [place] # (Auto) (0-900) /uL Eos # (Auto) (0-450) /uL Baso # (Auto) (0-100) /uL Sodium (137-145) mmol/L Potassium (3.4-5.1) mmol/L Chloride (98-107) mmol/L Carbon Dioxide (22-32) mmol/L BUN (7-17) mg/dL Creatinine (0.52-1.04) mg/dL Estimated GFR (>60) mL/min BUN/Creatinine Ratio (6-22) Glucose (70-100) mg/dL Calcium (8.4-10.2) mg/dL Total Bilirubin (0.2-1.3) mg/dL AST (14-36) IU/L ALT (<35) IU/L Alkaline Phosphatase (38-126) U/L Total Creatine Kinase (30-135) U/L CK-MB (CK-2) CK-MB (CK-2) Rel Index Troponin I (0.01-0.034) ng/mL Total Protein (6.3-8.2) g/dL Albumin (3.5-5.0) g/dL Globulin (1.7-4.1) g/dL Albumin/Globulin Ratio (1.0-2.8) Lipase (23-300) U/L TSH 0.444 L (0.47-4.68) uIU/mL Free T4 1.07 (0.78-2.19) ng/dL Urine Color Urine Appearance Urine pH (4.5-8.0) Ur Specific [place] (1.000-1.035) Urine Protein (Negative) Urine Glucose (UA) (Negative) g/dL Urine Ketones (NEGATIVE) Urine Occult Blood (Negative) Urine Nitrate (Negative) Urine Bilirubin (NEGATIVE) Urine Urobilinogen (0.2) E.U./dL Ur Leukocyte Esterase (NEGATIVE) Urine RBC (0-5/HPF) Urine WBC (0-5/HPF) Ur Squamous Epith Cells (0-5/HPF) Amorphous Sediment Urine Bacteria (None) Urine Mucus (Negative) Urine Yeast (None) Ur Culture Indicated? Salicylates < 1.0 (<20) mg/dL U Opiates 300ng/mL cut Negative (Negative) Ur Oxycodone Screen Negative (Negative) Urine Methadone Screen Negative (Negative) Acetaminophen < 10 (10-30) ug/mL Ur Barbiturates Screen Negative (Negative) Lamotrigine (2.0-20.0) ug/mL U Tricyclic Antidepress Negative (Negative) Ur Phencyclidine Scrn Negative (Negative) Ur Amphetamines Screen Negative (Negative) U Methamphetamines Scrn Negative (Negative) Ur MDMA Scrn (Ecstasy) Negative (Negative) U Benzodiazepines Scrn Positive H (Negative) Urine Cocaine Screen Negative (Negative) U Marijuana (THC) Screen Negative (Negative) Ethyl Alcohol ( - 10) mg/dL Ketones (<0.27) mmol/L SARS-CoV-2 (PCR) (Negative) 07/16/22 07/16/22 07/16/22 Range/Units 16:41 16:50 21:57 WBC (4.5-11.0) X10^3/uL RBC (4.0-5.2) X10^6/uL Hgb (12.0-16.0) g/dL Hct (36-46) % MCV (80-100) fL MCH (26-34) PG MCHC (30-36) % RDW (11.6-14.8) % Plt Count (150-400) X10^3/uL Neut % (Auto) (50-75) % Lymph % (Auto) (25-40) % [place] % (Auto) (3-14) % Eos % (Auto) (2-4) % Baso % (Auto) (0-2) % Neut # (Auto) (0650-2115) /uL Lymph # (Auto) (9763-4458) /uL [place] # (Auto) (0-900) /uL Eos # (Auto) (0-450) /uL Baso # (Auto) (0-100) /uL Sodium (137-145) mmol/L Potassium (3.4-5.1) mmol/L Chloride (98-107) mmol/L Carbon Dioxide (22-32) mmol/L BUN (7-17) mg/dL Creatinine (0.52-1.04) mg/dL Estimated GFR (>60) mL/min BUN/Creatinine Ratio (6-22) Glucose (70-100) mg/dL Calcium (8.4-10.2) mg/dL Total Bilirubin (0.2-1.3) mg/dL AST (14-36) IU/L ALT (<35) IU/L Alkaline Phosphatase (38-126) U/L Total Creatine Kinase (30-135) U/L CK-MB (CK-2) CK-MB (CK-2) Rel Index Troponin I (0.01-0.034) ng/mL Total Protein (6.3-8.2) g/dL Albumin (3.5-5.0) g/dL Globulin (1.7-4.1) g/dL Albumin/Globulin Ratio (1.0-2.8) Lipase (23-300) U/L TSH (0.47-4.68) uIU/mL Free T4 (0.78-2.19) ng/dL Urine Color Urine Appearance Urine pH (4.5-8.0) Ur Specific [place] (1.000-1.035) Urine Protein (Negative) Urine Glucose (UA) (Negative) g/dL Urine Ketones (NEGATIVE) Urine Occult Blood (Negative) Urine Nitrate (Negative) Urine Bilirubin (NEGATIVE) Urine Urobilinogen (0.2) E.U./dL Ur Leukocyte Esterase (NEGATIVE) Urine RBC 1-5/hpf (0-5/HPF) Urine WBC 1-5/hpf (0-5/HPF) Ur Squamous Epith Cells 1-5 /hpf (0-5/HPF) Amorphous Sediment 1+ Urine Bacteria Many (>30) H (None) Urine Mucus 1+ H (Negative) Urine Yeast 5-10/hpf H (None) Ur Culture Indicated? Specimen cultured Salicylates (<20) mg/dL U Opiates 300ng/mL cut (Negative) Ur Oxycodone Screen (Negative) Urine Methadone Screen (Negative) Acetaminophen (10-30) ug/mL Ur Barbiturates Screen (Negative) Lamotrigine 2.4 (2.0-20.0) ug/mL U Tricyclic Antidepress (Negative) Ur Phencyclidine Scrn (Negative) Ur Amphetamines Screen (Negative) U Methamphetamines Scrn (Negative) Ur MDMA Scrn (Ecstasy) (Negative) U Benzodiazepines Scrn (Negative) Urine Cocaine Screen (Negative) U Marijuana (THC) Screen (Negative) Ethyl Alcohol ( - 10) mg/dL Ketones (<0.27) mmol/L SARS-CoV-2 (PCR) Negative (Negative) 07/17/22 07/17/22 Range/Units 02:26 05:58 WBC (4.5-11.0) X10^3/uL RBC (4.0-5.2) X10^6/uL Hgb (12.0-16.0) g/dL Hct (36-46) % MCV (80-100) fL MCH (26-34) PG MCHC (30-36) % RDW (11.6-14.8) % Plt Count (150-400) X10^3/uL Neut % (Auto) (50-75) % Lymph % (Auto) (25-40) % [place] % (Auto) (3-14) % Eos % (Auto) (2-4) % Baso % (Auto) (0-2) % Neut # (Auto) (0809-1091) /uL Lymph # (Auto) (8052-8643) /uL [place] # (Auto) (0-900) /uL Eos # (Auto) (0-450) /uL Baso # (Auto) (0-100) /uL Sodium 137 (137-145) mmol/L Potassium 4.4 (3.4-5.1) mmol/L Chloride 100 (98-107) mmol/L Carbon Dioxide 28 (22-32) mmol/L BUN 26 H (7-17) mg/dL Creatinine 0.67 (0.52-1.04) mg/dL Estimated GFR > 60 (>60) mL/min BUN/Creatinine Ratio 38.8 H (6-22) Glucose 146 H (70-100) mg/dL Calcium 9.1 (8.4-10.2) mg/dL Total Bilirubin 0.5 (0.2-1.3) mg/dL AST 87 H (14-36) IU/L ALT 99 H (<35) IU/L Alkaline Phosphatase 694 H (38-126) U/L Total Creatine Kinase (30-135) U/L CK-MB (CK-2) CK-MB (CK-2) Rel Index Troponin I (0.01-0.034) ng/mL Total Protein 7.2 (6.3-8.2) g/dL Albumin 3.7 (3.5-5.0) g/dL Globulin 3.5 (1.7-4.1) g/dL Albumin/Globulin Ratio 1.1 (1.0-2.8) Lipase (23-300) U/L TSH (0.47-4.68) uIU/mL Free T4 (0.78-2.19) ng/dL Urine Color Yellow Urine Appearance Sl cloudy Urine pH 5.0 (4.5-8.0) Ur Specific [place] 1.020 (1.000-1.035) Urine Protein Trace H (Negative) Urine Glucose (UA) 2+ H (Negative) g/dL Urine Ketones Negative (NEGATIVE) Urine Occult Blood Trace-lysed (Negative) Urine Nitrate Negative (Negative) Urine Bilirubin Negative (NEGATIVE) Urine Urobilinogen 0.2 (0.2) E.U./dL Ur Leukocyte Esterase Negative (NEGATIVE) Urine RBC None seen (0-5/HPF) Urine WBC 10-30/hpf H D (0-5/HPF) Ur Squamous Epith Cells 1-5 /hpf (0-5/HPF) Amorphous Sediment Urine Bacteria Many (>30) H (None) Urine Mucus (Negative) Urine Yeast 30-100/hpf H (None) Ur Culture Indicated? Specimen cultured Salicylates (<20) mg/dL U Opiates 300ng/mL cut (Negative) Ur Oxycodone Screen (Negative) Urine Methadone Screen (Negative) Acetaminophen (10-30) ug/mL Ur Barbiturates Screen (Negative) Lamotrigine (2.0-20.0) ug/mL U Tricyclic Antidepress (Negative) Ur Phencyclidine Scrn (Negative) Ur Amphetamines Screen (Negative) U Methamphetamines Scrn (Negative) Ur MDMA Scrn (Ecstasy) (Negative) U Benzodiazepines Scrn (Negative) Urine Cocaine Screen (Negative) U Marijuana (THC) Screen (Negative) Ethyl Alcohol ( - 10) mg/dL Ketones (<0.27) mmol/L SARS-CoV-2 (PCR) (Negative) Point of care testing: Point of Care Testing Glucose POC 275 Urine Dip Bedside Urine Glucose 1000 mg/dl Bedside Urine Bilirubin - Negative Bedside Urine Ketone - Negative Urine Specific [place] 1.020 Bedside Urine Occult Blood +/- Bedside Urine pH 6.0 Bedside Urine Protein +/- 15 Bedside Urine Urobilinogen - Negative Bedside Urine Nitrite + Positive Bedside Urine Leukocytes - Negative Esterase MDM Narrative Medical decision making narrative: Patient presents today with a right of complaints including abdominal pain than possible suicide ideations and attempt. However she did not actually inject herself with insulin. She is on a variety of medications including Suboxone ketamine for her depression and bipolar. Patient is not willing to go to a mental health facility but can not contract for safety at this time. Social work has been in to evaluate agrees with [facility] dispatch. Awaiting to hear back from [facility]. Patient does have some slurring of speech but she is just taken ketamine and Suboxone. endorses that this is normal behavior for her. Head CT is not done. She is noted to have mildly elevated liver enzymes no significant right upper quadrant pain. Ultrasound not specific, no specific finding is seen but difficult exam. Patient signed out to Dr. Ledesma. [[id number]] ([place]) Patient received in sign out from [Drew]. I have reviewed the clinical course and performed an independent history and physical exam. No significant issues overnight, pending WOOD TECHNOLOGIST consult tomorrow. Sign-out to Dr. lAba for hopeful disposition July 17, 2022 at 12:50 p.m.. Appropriate for discharge home. Patient has been evaluated by social work again. [facility] has evaluated patient and not detainable. At time of discharge patient not SI or HI and no altered mental status. is comfortable for discharge home and watching patient and monitoring home medications. They have contracted for safety. Social work has seen patient and provided outpatient resources. Reviewed with patient for outpatient CT scan or MRI of the liver. They are comfortable with this plan. No pain at time of discharge. Prescription for Keflex to treat for UTI provided. <Nahun Alba MD - Last Filed: 07/23/22 08:23> Differential Diagnosis Differential diagnosis: Likely abdominal pain and other (Suicide ideation suicide attempt/depression/anxiety) Lab Data Labs: Lab Results 07/16/22 07/16/22 07/16/22 Range/Units 13:30 13:30 13:30 WBC 6.9 (4.5-11.0) X10^3/uL RBC 5.15 (4.0-5.2) X10^6/uL Hgb 13.5 (12.0-16.0) g/dL Hct 41.5 (36-46) % MCV 80.6 (80-100) fL MCH 26.2 (26-34) PG MCHC 32.5 (30-36) % RDW 15.3 H (11.6-14.8) % Plt Count 253 (150-400) X10^3/uL Neut % (Auto) 79.7 H (50-75) % Lymph % (Auto) 13.0 L (25-40) % [place] % (Auto) 6.2 (3-14) % Eos % (Auto) 0.9 L (2-4) % Baso % (Auto) 0.2 (0-2) % Neut # (Auto) 5500 (4179-7937) /uL Lymph # (Auto) 900 L (0270-1493) /uL [place] # (Auto) 400 (0-900) /uL Eos # (Auto) 100 (0-450) /uL Baso # (Auto) 0 (0-100) /uL Sodium 141 (137-145) mmol/L Potassium 4.5 (3.4-5.1) mmol/L Chloride 102 (98-107) mmol/L Carbon Dioxide 26 (22-32) mmol/L BUN 28 H (7-17) mg/dL Creatinine 0.74 (0.52-1.04) mg/dL Estimated GFR > 60 (>60) mL/min BUN/Creatinine Ratio 37.8 H (6-22) Glucose 162 H (70-100) mg/dL Calcium 9.4 (8.4-10.2) mg/dL Total Bilirubin 0.6 (0.2-1.3) mg/dL AST 120 H (14-36) IU/L ALT 122 H (<35) IU/L Alkaline Phosphatase 976 H (38-126) U/L Total Creatine Kinase 70 (30-135) U/L CK-MB (CK-2) TNP CK-MB (CK-2) Rel Index TNP Troponin I < 0.012 (0.01-0.034) ng/mL Total Protein 8.6 H (6.3-8.2) g/dL Albumin 4.4 (3.5-5.0) g/dL Globulin 4.2 H (1.7-4.1) g/dL Albumin/Globulin Ratio 1.0 (1.0-2.8) Lipase 64 (23-300) U/L TSH (0.47-4.68) uIU/mL Free T4 (0.78-2.19) ng/dL Urine Color Urine Appearance Urine pH (4.5-8.0) Ur Specific [place] (1.000-1.035) Urine Protein (Negative) Urine Glucose (UA) (Negative) g/dL Urine Ketones (NEGATIVE) Urine Occult Blood (Negative) Urine Nitrate (Negative) Urine Bilirubin (NEGATIVE) Urine Urobilinogen (0.2) E.U./dL Ur Leukocyte Esterase (NEGATIVE) Urine RBC (0-5/HPF) Urine WBC (0-5/HPF) Ur Squamous Epith Cells (0-5/HPF) Amorphous Sediment Urine Bacteria (None) Urine Mucus (Negative) Urine Yeast (None) Ur Culture Indicated? Salicylates (<20) mg/dL U Opiates 300ng/mL cut (Negative) Ur Oxycodone Screen (Negative) Urine Methadone Screen (Negative) Acetaminophen (10-30) ug/mL Ur Barbiturates Screen (Negative) Lamotrigine (2.0-20.0) ug/mL U Tricyclic Antidepress (Negative) Ur Phencyclidine Scrn (Negative) Ur Amphetamines Screen (Negative) U Methamphetamines Scrn (Negative) Ur MDMA Scrn (Ecstasy) (Negative) U Benzodiazepines Scrn (Negative) Urine Cocaine Screen (Negative) U Marijuana (THC) Screen (Negative) Ethyl Alcohol < 10 ( - 10) mg/dL Ketones 0.12 (<0.27) mmol/L SARS-CoV-2 (PCR) (Negative) 07/16/22 07/16/22 07/16/22 Range/Units 13:30 13:30 15:35 WBC (4.5-11.0) X10^3/uL RBC (4.0-5.2) X10^6/uL Hgb (12.0-16.0) g/dL Hct (36-46) % MCV (80-100) fL MCH (26-34) PG MCHC (30-36) % RDW (11.6-14.8) % Plt Count (150-400) X10^3/uL Neut % (Auto) (50-75) % Lymph % (Auto) (25-40) % [place] % (Auto) (3-14) % Eos % (Auto) (2-4) % Baso % (Auto) (0-2) % Neut # (Auto) (2386-0453) /uL Lymph # (Auto) (7601-2479) /uL [place] # (Auto) (0-900) /uL Eos # (Auto) (0-450) /uL Baso # (Auto) (0-100) /uL Sodium (137-145) mmol/L Potassium (3.4-5.1) mmol/L Chloride (98-107) mmol/L Carbon Dioxide (22-32) mmol/L BUN (7-17) mg/dL Creatinine (0.52-1.04) mg/dL Estimated GFR (>60) mL/min BUN/Creatinine Ratio (6-22) Glucose (70-100) mg/dL Calcium (8.4-10.2) mg/dL Total Bilirubin (0.2-1.3) mg/dL AST (14-36) IU/L ALT (<35) IU/L Alkaline Phosphatase (38-126) U/L Total Creatine Kinase (30-135) U/L CK-MB (CK-2) CK-MB (CK-2) Rel Index Troponin I (0.01-0.034) ng/mL Total Protein (6.3-8.2) g/dL Albumin (3.5-5.0) g/dL Globulin (1.7-4.1) g/dL Albumin/Globulin Ratio (1.0-2.8) Lipase (23-300) U/L TSH 0.444 L (0.47-4.68) uIU/mL Free T4 1.07 (0.78-2.19) ng/dL Urine Color Urine Appearance Urine pH (4.5-8.0) Ur Specific [place] (1.000-1.035) Urine Protein (Negative) Urine Glucose (UA) (Negative) g/dL Urine Ketones (NEGATIVE) Urine Occult Blood (Negative) Urine Nitrate (Negative) Urine Bilirubin (NEGATIVE) Urine Urobilinogen (0.2) E.U./dL Ur Leukocyte Esterase (NEGATIVE) Urine RBC (0-5/HPF) Urine WBC (0-5/HPF) Ur Squamous Epith Cells (0-5/HPF) Amorphous Sediment Urine Bacteria (None) Urine Mucus (Negative) Urine Yeast (None) Ur Culture Indicated? Salicylates < 1.0 (<20) mg/dL U Opiates 300ng/mL cut Negative (Negative) Ur Oxycodone Screen Negative (Negative) Urine Methadone Screen Negative (Negative) Acetaminophen < 10 (10-30) ug/mL Ur Barbiturates Screen Negative (Negative) Lamotrigine (2.0-20.0) ug/mL U Tricyclic Antidepress Negative (Negative) Ur Phencyclidine Scrn Negative (Negative) Ur Amphetamines Screen Negative (Negative) U Methamphetamines Scrn Negative (Negative) Ur MDMA Scrn (Ecstasy) Negative (Negative) U Benzodiazepines Scrn Positive H (Negative) Urine Cocaine Screen Negative (Negative) U Marijuana (THC) Screen Negative (Negative) Ethyl Alcohol ( - 10) mg/dL Ketones (<0.27) mmol/L SARS-CoV-2 (PCR) (Negative) 07/16/22 07/16/22 07/16/22 Range/Units 16:41 16:50 21:57 WBC (4.5-11.0) X10^3/uL RBC (4.0-5.2) X10^6/uL Hgb (12.0-16.0) g/dL Hct (36-46) % MCV (80-100) fL MCH (26-34) PG MCHC (30-36) % RDW (11.6-14.8) % Plt Count (150-400) X10^3/uL Neut % (Auto) (50-75) % Lymph % (Auto) (25-40) % [place] % (Auto) (3-14) % Eos % (Auto) (2-4) % Baso % (Auto) (0-2) % Neut # (Auto) (8523-5774) /uL Lymph # (Auto) (0688-3525) /uL [place] # (Auto) (0-900) /uL Eos # (Auto) (0-450) /uL Baso # (Auto) (0-100) /uL Sodium (137-145) mmol/L Potassium (3.4-5.1) mmol/L Chloride (98-107) mmol/L Carbon Dioxide (22-32) mmol/L BUN (7-17) mg/dL Creatinine (0.52-1.04) mg/dL Estimated GFR (>60) mL/min BUN/Creatinine Ratio (6-22) Glucose (70-100) mg/dL Calcium (8.4-10.2) mg/dL Total Bilirubin (0.2-1.3) mg/dL AST (14-36) IU/L ALT (<35) IU/L Alkaline Phosphatase (38-126) U/L Total Creatine Kinase (30-135) U/L CK-MB (CK-2) CK-MB (CK-2) Rel Index Troponin I (0.01-0.034) ng/mL Total Protein (6.3-8.2) g/dL Albumin (3.5-5.0) g/dL Globulin (1.7-4.1) g/dL Albumin/Globulin Ratio (1.0-2.8) Lipase (23-300) U/L TSH (0.47-4.68) uIU/mL Free T4 (0.78-2.19) ng/dL Urine Color Urine Appearance Urine pH (4.5-8.0) Ur Specific [place] (1.000-1.035) Urine Protein (Negative) Urine Glucose (UA) (Negative) g/dL Urine Ketones (NEGATIVE) Urine Occult Blood (Negative) Urine Nitrate (Negative) Urine Bilirubin (NEGATIVE) Urine Urobilinogen (0.2) E.U./dL Ur Leukocyte Esterase (NEGATIVE) Urine RBC 1-5/hpf (0-5/HPF) Urine WBC 1-5/hpf (0-5/HPF) Ur Squamous Epith Cells 1-5 /hpf (0-5/HPF) Amorphous Sediment 1+ Urine Bacteria Many (>30) H (None) Urine Mucus 1+ H (Negative) Urine Yeast 5-10/hpf H (None) Ur Culture Indicated? Specimen cultured Salicylates (<20) mg/dL U Opiates 300ng/mL cut (Negative) Ur Oxycodone Screen (Negative) Urine Methadone Screen (Negative) Acetaminophen (10-30) ug/mL Ur Barbiturates Screen (Negative) Lamotrigine 2.4 (2.0-20.0) ug/mL U Tricyclic Antidepress (Negative) Ur Phencyclidine Scrn (Negative) Ur Amphetamines Screen (Negative) U Methamphetamines Scrn (Negative) Ur MDMA Scrn (Ecstasy) (Negative) U Benzodiazepines Scrn (Negative) Urine Cocaine Screen (Negative) U Marijuana (THC) Screen (Negative) Ethyl Alcohol ( - 10) mg/dL Ketones (<0.27) mmol/L SARS-CoV-2 (PCR) Negative (Negative) 07/17/22 07/17/22 Range/Units 02:26 05:58 WBC (4.5-11.0) X10^3/uL RBC (4.0-5.2) X10^6/uL Hgb (12.0-16.0) g/dL Hct (36-46) % MCV (80-100) fL MCH (26-34) PG MCHC (30-36) % RDW (11.6-14.8) % Plt Count (150-400) X10^3/uL Neut % (Auto) (50-75) % Lymph % (Auto) (25-40) % [place] % (Auto) (3-14) % Eos % (Auto) (2-4) % Baso % (Auto) (0-2) % Neut # (Auto) (7631-2870) /uL Lymph # (Auto) (0200-7631) /uL Beckham # (Auto) (0-900) /uL Eos # (Auto) (0-450) /uL Baso # (Auto) (0-100) /uL Sodium 137 (137-145) mmol/L Potassium 4.4 (3.4-5.1) mmol/L Chloride 100 (98-107) mmol/L Carbon Dioxide 28 (22-32) mmol/L BUN 26 H (7-17) mg/dL Creatinine 0.67 (0.52-1.04) mg/dL Estimated GFR > 60 (>60) mL/min BUN/Creatinine Ratio 38.8 H (6-22) Glucose 146 H (70-100) mg/dL Calcium 9.1 (8.4-10.2) mg/dL Total Bilirubin 0.5 (0.2-1.3) mg/dL AST 87 H (14-36) IU/L ALT 99 H (<35) IU/L Alkaline Phosphatase 694 H (38-126) U/L Total Creatine Kinase (30-135) U/L CK-MB (CK-2) CK-MB (CK-2) Rel Index Troponin I (0.01-0.034) ng/mL Total Protein 7.2 (6.3-8.2) g/dL Albumin 3.7 (3.5-5.0) g/dL Globulin 3.5 (1.7-4.1) g/dL Albumin/Globulin Ratio 1.1 (1.0-2.8) Lipase (23-300) U/L TSH (0.47-4.68) uIU/mL Free T4 (0.78-2.19) ng/dL Urine Color Yellow Urine Appearance Sl cloudy Urine pH 5.0 (4.5-8.0) Ur Specific [place] 1.020 (1.000-1.035) Urine Protein Trace H (Negative) Urine Glucose (UA) 2+ H (Negative) g/dL Urine Ketones Negative (NEGATIVE) Urine Occult Blood Trace-lysed (Negative) Urine Nitrate Negative (Negative) Urine Bilirubin Negative (NEGATIVE) Urine Urobilinogen 0.2 (0.2) E.U./dL Ur Leukocyte Esterase Negative (NEGATIVE) Urine RBC None seen (0-5/HPF) Urine WBC 10-30/hpf H D (0-5/HPF) Ur Squamous Epith Cells 1-5 /hpf (0-5/HPF) Amorphous Sediment Urine Bacteria Many (>30) H (None) Urine Mucus (Negative) Urine Yeast 30-100/hpf H (None) Ur Culture Indicated? Specimen cultured Salicylates (<20) mg/dL U Opiates 300ng/mL cut (Negative) Ur Oxycodone Screen (Negative) Urine Methadone Screen (Negative) Acetaminophen (10-30) ug/mL Ur Barbiturates Screen (Negative) Lamotrigine (2.0-20.0) ug/mL U Tricyclic Antidepress (Negative) Ur Phencyclidine Scrn (Negative) Ur Amphetamines Screen (Negative) U Methamphetamines Scrn (Negative) Ur MDMA Scrn (Ecstasy) (Negative) U Benzodiazepines Scrn (Negative) Urine Cocaine Screen (Negative) U Marijuana (THC) Screen (Negative) Ethyl Alcohol ( - 10) mg/dL Ketones (<0.27) mmol/L SARS-CoV-2 (PCR) (Negative) Point of care testing: Point of Care Testing Glucose POC 275 Urine Dip Bedside Urine Glucose 1000 mg/dl Bedside Urine Bilirubin - Negative Bedside Urine Ketone - Negative Urine Specific [place] 1.020 Bedside Urine Occult Blood +/- Bedside Urine pH 6.0 Bedside Urine Protein +/- 15 Bedside Urine Urobilinogen - Negative Bedside Urine Nitrite + Positive Bedside Urine Leukocytes - Negative Esterase MDM Narrative Medical decision making narrative: Patient presents today with a right of complaints including abdominal pain than possible suicide ideations and attempt. However she did not actually inject herself with insulin. She is on a variety of medications including Suboxone ketamine for her depression and bipolar. Patient is not willing to go to a mental health facility but can not contract for safety at this time. Social work has been in to evaluate agrees with [facility] dispatch. Awaiting to hear back from [facility]. Patient does have some slurring of speech but she is just taken ketamine and Suboxone. endorses that this is normal behavior for her. Head CT is not done. She is noted to have mildly elevated liver enzymes no significant right upper quadrant pain. Ultrasound not specific, no specific finding is seen but difficult exam. Patient signed out to Dr. Ledesma. July 17, 2022 at 12:50 p.m.. Appropriate for discharge home. Patient has been evaluated by social work again. [facility] has evaluated patient and not detainable. At time of discharge patient not SI or HI and no altered mental status. is comfortable for discharge home and watching patient and monitoring home medications. They have contracted for safety. Social work has seen patient and provided outpatient resources. Reviewed with patient for outpatient CT scan or MRI of the liver. They are comfortable with this plan. No pain at time of discharge. Prescription for Keflex to treat for UTI provided. Discharge Plan Departure Patient Disposition: Home Clinical Impression: Suicide ideation, Acute UTI Activity Restrictions/Additional Instructions: Please see family doctor for re-evaluation this week. Prescription for Keflex antibiotic has been prescribed for you for urinary tract infection. Please do call provided resources given to you by social security benefits interviewer, Anayeli gallo, for continued services for your mental health. Return if worse if any questions or concerns. Return immediately if any thoughts of hurting yourself or others or any questions or concerns. Please see your family doctor to schedule outpatient MRI or CT scan imaging of your liver as we discussed findings on your ultrasound today. Prescriptions: New cephalexin 500 mg capsule 500 mg PO TID Qty: 15 0RF No Action metoprolol succinate [Toprol XL] 100 MG tablet extended release 24 hr 100 mg PO DAILY Qty: 0 Rx Instructions: 8am insulin aspart U-100 [Novolog U-100 Insulin aspart] 100 UNIT/1 ML solution 10 - 25 unit SQ TIDAC Qty: 0 Rx Instructions: sliding scale Lantus U-100 Insulin 100 unit/mL solution 30 unit SUBCUT QAM Qty: 0 Rx Instructions: 30 Unit in the morning & 20 units at bedtime ketamine 100 mg narinder 200 - 300 mg sublingual Q2HR MDD 16 capsules PRN (Reason: Pain (Scale Score 7-10)) tizanidine 2 mg tablet 4 mg PO Q8H Rx Instructions: 7am, 12 pm, 5pm vitamin B complex Tablet 1 tab PO DAILY cholecalciferol (vitamin D3) 50 mcg (2,000 unit) capsule 50 mcg PO DAILY lamotrigine 25 mg tablet 150 mg PO DAILY Rx Instructions: 8am quetiapine [Seroquel] 100 mg tablet 100 mg PO BID Qty: 0 Rx Instructions: 7am, 7pm omega-3 acid ethyl esters 1 gram Capsule 2 cap PO BID Rx Instructions: 8am, 5pm Creon 36,000-114,000- 180,000 unit capsule,delayed release(DR/EC) 3 cap PO TIDWM Rx Instructions: 2 capsules by mouth with breakfast, 3 capsules with lunch and 2 capsules with dinner and 1 capsule with snacks buprenorphine-naloxone 2-0.5 mg tablet, sublingual 1.5 tab SUBLINGUAL DAILY methylphenidate HCl 10 mg tablet 20 mg PO TID Rx Instructions: 7am oxybutynin chloride 5 mg tablet extended release 24hr 5 mg PO QPM Rx Instructions: 5pm irbesartan 150 mg tablet 150 mg PO QAM Rx Instructions: 8am rosuvastatin 40 mg tablet 40 mg PO QAM Jardiance 25 mg tablet 25 mg PO QAM Rx Instructions: 8am lorazepam 2 MG tablet 4 mg PO TID Rx Instructions: 7am, 12pm, 5pm fluoxetine 20 mg capsule 60 mg PO DAILY insulin glargine [Lantus U-100 Insulin] 100 unit/mL solution 20 unit SUBCUT QPM valacyclovir 500 mg tablet 500 mg PO DAILY PRN (Reason: herpes) lisinopril 5 mg tablet 5 mg PO DAILY Rx Instructions: 8am metformin 500 mg tablet extended release 24 hr 1,000 mg PO QAM zolpidem 12.5 mg tablet,ext release multiphase 20 mg PO BEDTIME Rx Instructions: 7pm omeprazole 20 mg tablet,delayed release (DR/EC) 20 mg PO DAILY Qty: 30 0RF Referrals: Helen Smith MD [Primary Care Provider] - Visit Report Forms: Patient Portal/API
--- NOTE | 2022-07-16 15:00 | DI.US.S_ITS ---
PROCEDURE: US ABDOMEN LIMITED INDICATIONS: ELEVATED ALKALINE PHOSPHATE. H/O HERRING/CHRONIC PANCREATITIS TECHNIQUE: Real-time scanning was performed of the abdominal and retroperitoneal organs, with image documentation. COMPARISON: [facility], MR, MR ABDOMEN WO/W CON, 03/03/2020, 13:56. [facility], CT, CT ABDOMEN PELVIS W CON, 02/22/2022, 17:23. [facility], US, US ABDOMEN LIMITED, 09/02/2021, 0:17. FINDINGS: Liver: Measures 14 cm in length. Increased in echogenicity. Heterogeneous and lobular echotexture. Hypoechoic region in the left lobe of the liver measuring 7.5 x 4.2 x 2.2 cm. Adjacent hypoechoic focus measuring 2.8 x 2 x 1.4 cm. Gallbladder: Absent. Biliary ducts: CHD measures 4.3 mm. CBD is not well seen. Pancreas: Pancreas is not well seen. No free fluid is seen. IMPRESSION: Exam is technically difficult due to bowel gas and acoustic windows. Heterogeneous cirrhotic liver morphology. Hypoechoic regions in the left lobe of the liver are indeterminate on this exam. Although this could be due to fibrosis or focal fatty sparing. This could be further evaluated with MRI of the liver or multiphase liver CT. The pancreas is not well seen. CBD is not well seen. Dictated by: Carlitos Kilgore M.D. on 07/16/2022 at 16:21 Approved by: Carlitos Kilgore M.D. on 07/16/2022 at 16:27
[2022-07-16 15:03] LABS: Free T4, Direct Thyroxine 1.07 ng/dL (0.78-2.19)
[2022-07-16 15:18] LABS: Thyroid Stimulating Hormone 0.444 uIU/mL (0.47-4.68)
--- NOTE | 2022-07-16 16:16 | PC.NURSE ---
Juan is in the room and they are talking while she is lying down.
--- NOTE | 2022-07-16 16:31 | CM.SWNOTE ---
OIL FIELD PUMPER - Riddler Operator Assessment OIL FIELD PUMPER - Riddler Operator Assessment Start: 07/16/22 16:16 Freq: Status: Active Protocol: Document 07/16/22 16:18 TM (Rec: 07/16/22 16:31 TM [id number]) OIL FIELD PUMPER/Riddler Operator Assessment Time Spent with Patient Start date 07/16/22 Visit Start Time 15:40 End date 07/16/22 Visit End Time 16:20 Mental Health Screening Include Onset, Duration, Intensity Presenting Problem Pt presents following suicide attempt via insulin overdose. Pt reports that today she had just had enough and wanted to go to sleep and not wake up. Precipitating Event(s) Pt reports that she has chronic pain in back, hip, shoulder, arm. Pt reports that pain is not well controlled and she has GI problems that are causing significant distress. Pt reports feeling hopeless that her pain is not well controlled and just wants to feel better. Pt reports that she has been thinking about insulin overdoose for a long time, stating, I've always had that plan in my head. Current Behavioral Health Provider(s) Dr. Maxx Sheridan, Psychiatrist Include Facility, Provider, Ph. # [phone] Psych. Hx Mental Health and Chemical Pt has diagnosis of bipolar I Dependency disorder. Pt prescribed suboxone and ketamine by Dr. Sheridan. Pt had previous opioid dependence due to chronic pain. Family Hx of Behavioral Abuse None. Psychiatric Hospitalizations (date(s)/ none. location) Psychosocial information & Support Pt is well supported by her Systems , Arnie. Legal Concerns Legal Matters - Outstanding Issues none Mental Status Orientation (Person/Place/Time) Pt alert and oriented x4. Stated Mood Embarassed. When asked if she was feeling suicidal patient stated, not if something can be done [about pain]. Affect (Congruent with Mood?) Broad. Thought Content - Specify/Describe Denies AH, VH. Obsessions, Delusions, Hallucinations Thought Processes (Frepaam-Vdrilyzq-Kcqn logical. Hfdxpjbi-Lvbafeuu-Yxsmxtszpg- Ncoxgxpcnnbukx-Nszokqp-Nwibhoxkesyb- Thought Blocking) Speech (Vxqhmf-Obpm-Bmjojcl-Rapid-Soft- slurred, slow. Pt's Loud-Pressured) reports that this is not far off baseline and that pt's speech varies for a number of reasons, including her stroke in August 2021. Motor (Pcxisd-Hxbfbpiro-Gyae-Other) slow. Insight (Jxwr-Uuag-Ahnr/Limited) Poor. Judgement (Nhnd-Qpot-Elvo/Limited) Poor. Pt was looking for knife in her room when interrupted by a nurse. Pt reports that she was looking for the knife so that she could hurt herself . Impulse Control (Adequate-Impaired) Adequate. Memory (Mmnlnutjp-Ypvdbf-Nybeop, Immediate, intact. Impaired-Intact) Concentration (Intact-Impaired) Impaired, pt seems drowsy. Attention (Intact-Impaired) impaired - seems drowsy. Behavior (Appropriate-Inappropriate) appropriate. Risk Assessment Suicidal Ideation (Plan) Yes: no current plan Homicidal Ideation (Plan) No Intervention Intervention SW met with pt and ( per patient request) to complete MH evaluation and safety assessment. Pt reports that she has been dealing with chronic pain for years and that she just wants to feel better. At other times, pt reports I just want to go to sleep and not wake up. Pt unable to contract for safety; stating that safety is conditional on her pain improving. Pt's is concerned that he will be unable to keep her safe at home. Pt's manages her ketamine but not her insulin. Pt not willing to do inpatient psychiatric hospitalization. Plan RA Plan SW discussed with ED Provider and pt's and it is agreed to call [facility] to evaluate for involuntary detainment. MIGDALIA Burrell
--- NOTE | 2022-07-16 16:33 | PC.NURSE ---
pt. laying on side, resp. are even, chest is rising and falling. left @ 16:34 wanted to speak to doc or sw about medications taken by pt. Juan() and I wrote a note for pt. nurse about medications
--- NOTE | 2022-07-16 16:46 | PC.NURSE ---
pt. lying on side, eyes closed. resp. are even and chest is rising and falling.
--- NOTE | 2022-07-16 17:00 | PC.NURSE ---
pt. is lying down. ekg just finished @ 1700
[2022-07-16 17:04] LABS: Ur Creatinine Normal (Normal); Ur Specific Gravity Normal (Normal); Urine Tetrahydrocannabinol Negative (Negative); Urine pH Normal (Normal)
[2022-07-16 17:05] LABS: UR Morphine/Opiate cutoff 300 Negative (Negative); Urine Amphetamines Negative (Negative); Urine Barbiturates Negative (Negative); Urine Benzodiazepines Positive (Negative); Urine Cocaine Negative (Negative); Urine MDMA Negative (Negative); Urine Methadone Negative (Negative); Urine Methamphetamines Negative (Negative); Urine Oxycodone Negative (Negative); Urine Phencyclidine Negative (Negative); Urine Tricyclic Antidepressant Negative (Negative)
[2022-07-16 17:07] LABS: Amorphous Sediment Urine 1+; Bacteria Urine Many (>30); Mucus Urine 1+ (Negative); RBC Urine 1-5/HPF (0-5/HPF); Squamous Epithelial Cell Urine 1-5 /HPF (0-5/HPF); WBC Urine 1-5/HPF (0-5/HPF)
[2022-07-16 17:08] LABS: Culture Indicated Urine Specimen Cultured
[2022-07-16 17:12] LABS: COVID19 -Nasal RAPID Negative (Negative)
[2022-07-16 19:01] VITALS: BP 124/67; PULSE 62; TEMP 36.3; O2SAT 96
--- NOTE | 2022-07-16 19:01 | PC.NURSE ---
pt. requested food. gave half turkey sandwich. 236 ml of cranberry juice and yogurt from med room. is in the room.
--- NOTE | 2022-07-16 19:16 | PC.NURSE ---
Pts spouse has medications, suboxone, ketamine and creon. Pharmacy is gone for the night, unable to safely store medication here. will provide ketamine dose, per Dr Ledesma but medication will be kept out of department. Pharmacy will be contacted in the am.
--- NOTE | 2022-07-16 19:48 | PC.NURSE ---
Addendum entered by Marla Cm R.N. 07/16/22 19:50: Dr. Ledesma made aware. Original Note: gave pt her ketamine and a syringe and she gave it to herself rectally when she went to the bathroom per report of the sitter. I had specifically told pt's to NOT give her any medications unless specifically instructed to.
--- NOTE | 2022-07-16 22:26 | PC.NURSE ---
Medication reconciliation completed with earlier in shift. Med list updated w/ bottles in hand and his verbal confirmation. Reviewed medications w/ Dr. Ledesma who gave verbal orders for what he wanted continued. Dr. Ledesma made aware that irbasartan, jardiance, omeprazole, rosuvastatin.
[2022-07-16] MEDS: ZOLPIDEM 5 MG TABLET 20 MG PO (23:33)
[2022-07-16] MEDS: INSULIN GLARGINE 100 UNIT/ML 3ML PEN 20 UNIT SUBCUT (23:34)
[2022-07-16] MEDS: LORazepam 0.5 MG TABLET 4 MG PO (23:34)
[2022-07-17] MEDS: TIZANIDINE 4 MG TABLET PO ×2 (00:02→08:33)
[2022-07-17] MEDS: OXYBUTYNIN 5 MG TABLET PO (00:02)
[2022-07-17] MEDS: QUETIAPINE 100 MG TABLET PO ×2 (00:02→08:33)
[2022-07-17 04:37] LABS: Appearance Urine UA SL CLOUDY; Bilirubin Urine UA NEGATIVE (NEGATIVE); Color Urine UA YELLOW; Glucose Urine UA 2+ g/dL (Negative); Ketones Urine UA NEGATIVE (NEGATIVE); Leukocyte Esterase Urine UA NEGATIVE (NEGATIVE); Nitrite Urine UA NEGATIVE (Negative); Occult Blood Urine UA TRACE-LYSED (Negative); Protein Urine UA TRACE (Negative); Urobilinogen Urine UA 0.2 E.U./dL (0.2)
[2022-07-17 04:44] LABS: RBC Urine None Seen (0-5/HPF)
[2022-07-17 04:45] LABS: Bacteria Urine Many (>30); Squamous Epithelial Cell Urine 1-5 /HPF (0-5/HPF); WBC Urine 10-30/HPF (0-5/HPF)
[2022-07-17 04:46] LABS: Culture Indicated Urine Specimen Cultured
[2022-07-17 05:27] VITALS: BP 120/72; PULSE 60; RESP 17; O2SAT 95
[2022-07-17] MEDS: cefTRIAXone 1,000 MG in SODIUM CHLORIDE 0.9% 100 ML 200 MG IV (05:44)
[2022-07-17 06:42] LABS: Alanine Aminotransferase 99 IU/L (<35); Albumin 3.7 g/dL (3.5-5.0); Albumin Globulin Ratio 1.1 (1.0-2.8); Alkaline Phosphatase 694 U/L (38-126); Aspartate Aminotransferase 87 IU/L (14-36); BUN Creatinine Ratio 38.8 (6-22); Bilirubin Total 0.5 mg/dL (0.2-1.3); Blood Urea Nitrogen 26 mg/dL (7-17); Calcium 9.1 mg/dL (8.4-10.2); Carbon Dioxide 28 mmol/L (22-32); Chloride 100 mmol/L (98-107); Estimated Glomerular Filt Rate > 60 mL/min (>60); Globulin 3.5 g/dL (1.7-4.1); Glucose 146 mg/dL (70-100); HEMOLYSIS < 15 (0-50); Potassium 4.4 mmol/L (3.4-5.1); Sodium 137 mmol/L (137-145); Total Protein 7.2 g/dL (6.3-8.2)
--- NOTE | 2022-07-17 07:32 | PC.NURSE ---
pt. in room, pt. is lying down talking with .
--- NOTE | 2022-07-17 08:00 | PC.NURSE ---
pt. sitting at end of bed, eating breakfast with table in front talking to .
--- NOTE | 2022-07-17 08:30 | PC.NURSE ---
pt. lying down talking with and playing on tablet.
[2022-07-17] MEDS: METFORMIN HCL 500 MG TABLET 1000 MG PO (08:34)
[2022-07-17] MEDS: lamoTRIgine 100 MG TABLET 150 MG PO (08:34)
[2022-07-17] MEDS: METOPROLOL ER 50 MG TABLET PO (08:34)
[2022-07-17] MEDS: FLUoxetine 20 MG CAPSULE 60 MG PO (08:34)
[2022-07-17] MEDS: lisinopriL 5 MG TABLET PO (08:34)
[2022-07-17] MEDS: INSULIN GLARGINE 100 UNIT/ML 3ML PEN 30 UNIT SUBCUT (08:38)
[2022-07-17 09:56] VITALS: BP 91/62; PULSE 83; O2SAT 96
--- NOTE | 2022-07-17 10:30 | PC.NURSE ---
pt. asked for cranberry juice, gave water and cranberry juice.
--- NOTE | 2022-07-17 10:52 | PC.NURSE ---
Spoke with Paul from [facility]. Pt does not meed involuntary commitment. pt is not gravely disabled and is mentating appropriately. Laying prone in bed on ipad playing games, conversing normally with . is not expressing SI at this time. Dr Alba made aware and plan is to have PIPE COVERING MOLDER re-evaluate.
--- NOTE | 2022-07-17 10:55 | PC.NURSE ---
pt. eyes are closed. respirations are even. chest is rising and falling.
[2022-07-17] MEDS: METHYLPHENIDATE 5 MG TABLET 20 MG PO (11:08)
[2022-07-17] MEDS: LORazepam 0.5 MG TABLET 4 MG PO (11:08)
--- NOTE | 2022-07-17 11:16 | PC.NURSE ---
in the room with
--- NOTE | 2022-07-17 11:53 | PC.NURSE ---
pt calm in room eating sandwich
--- NOTE | 2022-07-17 12:19 | PC.NURSE ---
aaron jackson in room with pt
--- NOTE | 2022-07-17 12:43 | CM.SWNOTE ---
ED SW Note Patient is a 57-year-old female history of bipolar, insulin-dependent diabetes, chronic pancreatitis presenting today with a variety of symptoms. Initially started with some abdominal pain but now she admits to suicidal thoughts. SW arrives today and learns that [facility] evaluated patient and she did not meet criteria for detainment. [facility] calls pt's customer complaint service supervisor at reschedules appointment for August 06 at 9:40am. SW meets pt and her spouse in room to discuss. Pt is relieved that an earlier appointment is available. Pt denies SI at this time. Pt's spouse, Juan reports that he is comfortable with pt returning home. SW provides pt with MH resources as well as information on her rescheduled GI appointment. SW encourages patient to schedule follow up with her psychiatrist, Dr. Sheridan and PCP. Plan: Pt will discharge home with spouse with resources. MIGDALIA Burrell
[2022-07-17 12:51] VITALS: PULSE 75; RESP 16; O2SAT 98
[2022-07-19 13:32] LABS: Lamotrigine Lamictal 2.4 ug/mL (2.0-20.0)
== END 2022-07-17 12:52 | disposition home or self-care (01) ==
PROVIDERS: Emergency Medicine; Emergency Provider Emergency Medicine; PCP Internal Medicine; Referring Provider Emergency Medicine
DX: R45.851 Suicidal ideations (principal); N39.0 Urinary tract infection, site not specified; R10.9 Unspecified abdominal pain; E11.69 Type 2 diabetes mellitus with other specified complication; Z79.4 Long term (current) use of insulin; Z79.899 Other long term (current) drug therapy; Z20.822 Contact with and (suspected) exposure to COVID-19
CPT/HCPCS: 36415; 76705; 80053; 80175; 80305; 80320; 80329; 81001; 81003; 81015; 82009; 82550; 82962; 83690; 84439; 84443; 84484; 85025; 87077; 87086; 87635; 93005; 96365; 96372; 96375; 99285; C9803; G0480; J0696; J2405

== ENCOUNTER 2022-08-13 15:04 | Emergency (ER) | payer OTHER, SELFPAY ==
[2022-04-26 14:55] VITALS: BMI 26.8
[2022-08-13] VITALS (10 sets, daily range): BP systolic 162–201; BP diastolic 80–95; PULSE 60–66; RESP 18; TEMP 36.8; O2SAT 96–98; BMI 27.6
--- NOTE | 2022-08-13 19:51 | ED_ITS ---
HPI - General Adult General Chief complaint: Urogenital-Female Stated complaint: Trouble urinating Time Seen by Provider: 08/13/22 18:53 Source: patient Mode of arrival: Wheelchair History of Present Illness HPI narrative: 57-year-old woman with a history of insulin-dependent diabetes, chronic pancreatitis, bipolar disorder, hypertension, presents complaining of a sensation that she is unable to void and feeling somewhat bloated. She notes that she is been drinking lots of liquids today(nonalcoholic) has not had any fevers, cough, chills. No vomiting no diarrhea. She states that there has been no change to her chronic back pain and she is never had urinary retention before. There has been no recent change to medications. She was able to void to give a urine sample. Related Data Home Medications Medication Instructions Recorded Confirmed insulin aspart U-100 100 unit/mL 10 - 25 unit SQ TIDAC ##0 09/19/17 07/16/22 subcutaneous solution (Novolog U-100 Insulin aspart) metoprolol succinate 100 mg 100 mg PO DAILY ##0 09/19/17 07/16/22 tablet,extended release 24 hr (Toprol XL) omega-3 acid ethyl esters 1 gram 2 cap PO BID 04/17/19 07/16/22 capsule lisinopril 5 mg tablet 5 mg PO DAILY 01/06/20 07/16/22 metformin 500 mg tablet,extended 1,000 mg PO QAM 01/06/20 07/16/22 release 24 hr valacyclovir 500 mg tablet 500 mg PO DAILY PRN herpes 01/06/20 07/16/22 zolpidem 12.5 mg tablet,extended 20 mg PO BEDTIME 01/06/20 07/16/22 release,multiphase cholecalciferol (vitamin D3) 50 50 mcg PO DAILY 11/28/20 07/16/22 mcg (2,000 unit) capsule insulin glargine 100 unit/mL 30 unit SUBCUT QAM #0 mL 11/28/20 07/16/22 subcutaneous solution (Lantus U-100 Insulin) ketamine 100 mg sublingual narinder 200 - 300 mg sublingual Q2HR PRN 11/28/20 07/16/22 Pain (Scale Score 7-10) lamotrigine 25 mg tablet 150 mg PO DAILY 11/28/20 07/16/22 tizanidine 2 mg tablet 4 mg PO Q8H 11/28/20 07/16/22 vitamin B complex 1 tab PO DAILY 11/28/20 07/16/22 saawzt-kpheqmiw-tagfztn 3 cap PO TIDWM 09/09/21 07/16/22 36,000-114,000-180,000 unit capsule,delay rel (Creon) quetiapine 100 mg tablet (Seroquel) 100 mg PO BID #0 tabs 04/24/22 07/16/22 buprenorphine 2 mg-naloxone 0.5 mg 1.5 tab sublingual DAILY 07/16/22 07/16/22 sublingual tablet empagliflozin 25 mg tablet 25 mg PO QAM 07/16/22 07/16/22 (Jardiance) fluoxetine 20 mg capsule 60 mg PO DAILY 07/16/22 07/16/22 insulin glargine 100 unit/mL 20 unit SUBCUT QPM 07/16/22 07/16/22 subcutaneous solution (Lantus U-100 Insulin) irbesartan 150 mg tablet 150 mg PO QAM 07/16/22 07/16/22 lorazepam 2 mg tablet 4 mg PO TID 07/16/22 07/16/22 methylphenidate HCl 10 mg tablet 20 mg PO TID 07/16/22 07/16/22 oxybutynin chloride 5 mg 5 mg PO QPM 07/16/22 07/16/22 tablet,extended release 24 hr rosuvastatin 40 mg tablet 40 mg PO QAM 07/16/22 07/16/22 Previous Rx's Medication Instructions Recorded omeprazole 20 mg tablet,delayed 20 mg PO DAILY heart burn #30 tabs 02/22/22 release cephalexin 500 mg capsule 500 mg PO TID #15 caps 07/17/22 Allergies Allergy/AdvReac Type Severity Reaction Status Date / Time No Known Drug Allergies Allergy Verified 08/13/22 15:24 Patient History Medical History Acute dehydration Acute infection of right ear Acute kidney injury Anxiety Arm pain Arthritis Benzodiazepine dependence, continuous Bipolar 1 disorder Chronic pain syndrome Chronic pancreatitis Episode of syncope Fracture of right foot Herniated nucleus pulposus, L4-5 History of pulmonary embolism Hypercholesterolemia with hypertriglyceridemia Hypersomnia Hypertension Insulin dependent diabetes mellitus Intractable vomiting with nausea Major depressive disorder family reunification specialist associated with adverse incidents Neuropathy, diabetic Nonalcoholic steatohepatitis (HERRING) Obesity (BMI 30-39.9) Obstructive sleep apnea of adult Opiate dependence, continuous Renal insufficiency Snoring Type 2 diabetes mellitus Surgical History Gastrocnemius equinus of right lower extremity H/O hysterectomy for benign disease History of appendectomy History of cholecystectomy Lumbar post-laminectomy syndrome Right humeral fracture Family History Father COPD (chronic obstructive pulmonary disease) Mother Hypertension Sister Fibromyalgia Social History marital status: details: to Arnie household members: spouse lives independently: Yes caregiver/support person: No occupational status: unemployed Smoking Status: Never smoker alcohol intake: former substance use type: marijuana Smoking Status: Never smoker alcohol intake frequency: 0-2 drinks per day Substance Use Type: does not use Exam Initial Vital Signs Initial Vital Signs: Vital Signs Temperature 98.2 F 08/13/22 15:22 Pulse Rate 63 08/13/22 15:22 Respiratory Rate 18 08/13/22 15:22 Blood Pressure 162/85 H 08/13/22 15:22 Pulse Oximetry 98 08/13/22 15:22 Oxygen Delivery Method 08/13/22 15:22 General: Chronically ill-appearing but in no acute distress. Quite sleepy but can participate with exam HEENT: Moist mucous membranes, normal sclera with reactive pupils, Respiratory: Lungs are clear to auscultation, no wheezing no rales no rhonchi. Full and symmetrical air movement Cardiac: Regular rate and rhythm no murmurs no bruits Abdomen: Soft, nontender, good bowel tones, no flank pain Spine: No skin abnormalities or point tenderness over the lower thoracic or lumbar spine Skin: Warm and dry, no rashes Neurologic: Grossly neurologically intact with no obvious asymmetries or ab normalities. Full sensation in lower extremities, no loss of sensation to the perineum Extremities: No trauma, well perfused Psych: Cooperative, appropriate speech fluency Course Orders Ordered: ED Orders 08/13/22 20:16 Complete Blood Count AUTO DIFF Stat Comprehensive Metabolic Panel Stat Vital Signs Vital signs: Vital Signs - 8 hr 08/13/22 15:22 08/13/22 18:33 08/13/22 18:48 Temperature 98.2 F Pulse Rate 63 66 66 Respiratory Rate 18 18 Blood Pressure 162/85 H 201/95 H Pulse Oximetry 98 98 98 Oxygen Delivery Method Room Air Room Air 08/13/22 19:00 08/13/22 19:30 08/13/22 20:00 Temperature Pulse Rate 63 65 65 Respiratory Rate Blood Pressure Pulse Oximetry 97 96 97 Oxygen Delivery Method 08/13/22 21:01 08/13/22 21:02 08/13/22 21:02 Temperature Pulse Rate 64 60 Respiratory Rate Blood Pressure 171/93 H Pulse Oximetry 96 96 Oxygen Delivery Method Room Air Medical Decision Making Lab Data 08/13/22 20:16 08/13/22 20:16 Labs: Lab Results 08/13/22 08/13/22 Range/Units 20:16 20:16 WBC 5.1 (4.5-11.0) X10^3/uL RBC 4.53 (4.0-5.2) X10^6/uL Hgb 12.3 (12.0-16.0) g/dL Hct 36.7 (36-46) % MCV 81.0 (80-100) fL MCH 27.2 (26-34) PG MCHC 33.5 (30-36) % RDW 15.6 H (11.6-14.8) % Plt Count 166 (150-400) X10^3/uL Neut % (Auto) 69.8 (50-75) % Lymph % (Auto) 21.1 L (25-40) % [place] % (Auto) 7.4 (3-14) % Eos % (Auto) 1.4 L (2-4) % Baso % (Auto) 0.3 (0-2) % Neut # (Auto) 3500 (8420-8013) /uL Lymph # (Auto) 1100 (0162-8157) /uL [place] # (Auto) 400 (0-900) /uL Eos # (Auto) 100 (0-450) /uL Baso # (Auto) 0 (0-100) /uL Sodium 136 L (137-145) mmol/L Potassium 3.9 (3.4-5.1) mmol/L Chloride 100 (98-107) mmol/L Carbon Dioxide 28 (22-32) mmol/L BUN 13 (7-17) mg/dL Creatinine 0.46 L (0.52-1.04) mg/dL Estimated GFR > 60 (>60) mL/min BUN/Creatinine Ratio 28.3 H (6-22) Glucose 150 H (70-100) mg/dL Calcium 9.0 (8.4-10.2) mg/dL Total Bilirubin 0.6 (0.2-1.3) mg/dL AST 166 H (14-36) IU/L ALT 192 H (<35) IU/L Alkaline Phosphatase 591 H (38-126) U/L Total Protein 7.2 (6.3-8.2) g/dL Albumin 3.9 (3.5-5.0) g/dL Globulin 3.3 (1.7-4.1) g/dL Albumin/Globulin Ratio 1.2 (1.0-2.8) Urine Dip Bedside Urine Glucose Negative Bedside Urine Bilirubin - Negative Bedside Urine Ketone - Negative Urine Specific [place] 1.005 Bedside Urine Occult Blood - Negative Bedside Urine pH 6.0 Bedside Urine Protein - Negative Bedside Urine Urobilinogen - Negative Bedside Urine Nitrite - Negative Bedside Urine Leukocytes - Negative Esterase Point of care testing: Urine Dip Bedside Urine Glucose Negative Bedside Urine Bilirubin - Negative Bedside Urine Ketone - Negative Urine Specific [place] 1.005 Bedside Urine Occult Blood - Negative Bedside Urine pH 6.0 Bedside Urine Protein - Negative Bedside Urine Urobilinogen - Negative Bedside Urine Nitrite - Negative Bedside Urine Leukocytes - Negative Esterase MDM Narrative Medical decision making narrative: CC: Difficulty voiding. New problem, uncertain prognosis and possibility for life-threatening abnormality Complicating co-morbidities: Diabetes, bipolar disorder, chronic pain secondary to her lumbar pain Corroborating data: Data collected from: patient, Social determinants of health that may influence the patients condition: Chronic pain, mental health issues, frequent interactions with the healthcare system Medical records reviewed: Recent hospitalization and discharge notes, neurosurgical notes for chronic back pain after lumbar laminectomy with referral to the [facility] spine surgery service in September of 2020 Differential considered: Cauda equina syndrome, epidural abscess, obstructive uropathy, medication adverse reactions, infection Exam documented above, pertinent findings include: Nothing on exam to suggest acute neurologic changes, acute spinal injury or pain and she is able to completely void and empty her bladder Lab Test results independently reviewed as above. Pertinent findings: CBC is unremarkable Chemistries are unremarkable Treatments: Patient gave a urine sample, approximately 30 minutes later a bladder scan showed 450 cc in the bladder. She was able to void just under 500 cc indicating no acute urinary retention. Re-evaluations: Findings reviewed with patient. She is feeling much better and looking forward to discharge home. Again noted no change to medications . Discussion: Review findings, she was able to completely void the sensation of being unable to void has resolved. I do not think that there is significant spinal cord injury or abnormality. No evidence of infection. Disposition: see below, along with detailed discharge instructions that have been reviewed with patient as well as indications for ED re-evaluation and additional outpatient follow up Discharge Plan Departure Patient Disposition: Home Clinical Impression: Difficulty in voiding Activity Restrictions/Additional Instructions: Thank you for coming in today Your workup today did not suggest any significant abnormalities. There is no worsening to your chronic back pain to suggest that this might be a neurologic problem. There is no infection in your urine. Your blood work does not suggest any type of systemic infection. In the emergency depart you were able to completely empty your bladder without any difficulties Sometimes medications can cause hesitancy with urinating however, you said that you have not changed any of your medications recently If you find that you are getting worse or develop any new symptoms, please feel free to return to the emergency department for further evaluation. Prescriptions: No Action metoprolol succinate [Toprol XL] 100 MG tablet extended release 24 hr 100 mg PO DAILY Qty: 0 Rx Instructions: 8am insulin aspart U-100 [Novolog U-100 Insulin aspart] 100 UNIT/1 ML solution 10 - 25 unit SQ TIDAC Qty: 0 Rx Instructions: sliding scale Lantus U-100 Insulin 100 unit/mL solution 30 unit SUBCUT QAM Qty: 0 Rx Instructions: 30 Unit in the morning & 20 units at bedtime ketamine 100 mg narinder 200 - 300 mg sublingual Q2HR MDD 16 capsules PRN (Reason: Pain (Scale Score 7-10)) tizanidine 2 mg tablet 4 mg PO Q8H Rx Instructions: 7am, 12 pm, 5pm vitamin B complex Tablet 1 tab PO DAILY cholecalciferol (vitamin D3) 50 mcg (2,000 unit) capsule 50 mcg PO DAILY lamotrigine 25 mg tablet 150 mg PO DAILY Rx Instructions: 8am quetiapine [Seroquel] 100 mg tablet 100 mg PO BID Qty: 0 Rx Instructions: 7am, 7pm omega-3 acid ethyl esters 1 gram Capsule 2 cap PO BID Rx Instructions: 8am, 5pm Creon 36,000-114,000- 180,000 unit capsule,delayed release(DR/EC) 3 cap PO TIDWM Rx Instructions: 2 capsules by mouth with breakfast, 3 capsules with lunch and 2 capsules with dinner and 1 capsule with snacks buprenorphine-naloxone 2-0.5 mg tablet, sublingual 1.5 tab SUBLINGUAL DAILY methylphenidate HCl 10 mg tablet 20 mg PO TID Rx Instructions: 7am oxybutynin chloride 5 mg tablet extended release 24hr 5 mg PO QPM Rx Instructions: 5pm irbesartan 150 mg tablet 150 mg PO QAM Rx Instructions: 8am rosuvastatin 40 mg tablet 40 mg PO QAM Jardiance 25 mg tablet 25 mg PO QAM Rx Instructions: 8am lorazepam 2 MG tablet 4 mg PO TID Rx Instructions: 7am, 12pm, 5pm fluoxetine 20 mg capsule 60 mg PO DAILY insulin glargine [Lantus U-100 Insulin] 100 unit/mL solution 20 unit SUBCUT QPM cephalexin 500 mg capsule 500 mg PO TID Qty: 15 0RF valacyclovir 500 mg tablet 500 mg PO DAILY PRN (Reason: herpes) lisinopril 5 mg tablet 5 mg PO DAILY Rx Instructions: 8am metformin 500 mg tablet extended release 24 hr 1,000 mg PO QAM zolpidem 12.5 mg tablet,ext release multiphase 20 mg PO BEDTIME Rx Instructions: 7pm omeprazole 20 mg tablet,delayed release (DR/EC) 20 mg PO DAILY Qty: 30 0RF Referrals: Helen Smith MD [Primary Care Provider] - Stand Alone Forms: Patient Portal/API
[2022-08-13 20:40] LABS: Add Manual Diff / Slide Review NO; Basophils Absolute Auto 0 /uL (0-100); Basophils Percent Auto 0.3 % (0-2); Eosinophils Absolute Auto 100 /uL (0-450); Eosinophils Percent Auto 1.4 % (2-4); Hematocrit 36.7 % (36-46); Hemoglobin 12.3 g/dL (12.0-16.0); Lymphocytes Absolute Auto 1100 /uL (1100-4500); Lymphocytes Percent Auto 21.1 % (25-40); Mean Corpuscular HGB Conc 33.5 % (30-36); Mean Corpuscular Hemoglobin 27.2 PG (26-34); Monocytes Absolute Auto 400 /uL (0-900); Monocytes Percent Auto 7.4 % (3-14); Neutrophils Absolute Auto 3500 /uL (1500-7000); Neutrophils Percent Auto 69.8 % (50-75); Platelet Count 166 X10^3/uL (150-400); Red Blood Cell Count 4.53 X10^6/uL (4.0-5.2); Red Cell Distribution Width 15.6 % (11.6-14.8); White Blood Cell Count 5.1 X10^3/uL (4.5-11.0)
[2022-08-13 21:22] LABS: Alanine Aminotransferase 192 IU/L (<35); Albumin 3.9 g/dL (3.5-5.0); Albumin Globulin Ratio 1.2 (1.0-2.8); Alkaline Phosphatase 591 U/L (38-126); Aspartate Aminotransferase 166 IU/L (14-36); BUN Creatinine Ratio 28.3 (6-22); Bilirubin Total 0.6 mg/dL (0.2-1.3); Blood Urea Nitrogen 13 mg/dL (7-17); Carbon Dioxide 28 mmol/L (22-32); Chloride 100 mmol/L (98-107); Estimated Glomerular Filt Rate > 60 mL/min (>60); Globulin 3.3 g/dL (1.7-4.1); Glucose 150 mg/dL (70-100); HEMOLYSIS 32 (0-50); Potassium 3.9 mmol/L (3.4-5.1); Sodium 136 mmol/L (137-145); Total Protein 7.2 g/dL (6.3-8.2)
== END 2022-08-13 22:48 | disposition home or self-care (01) ==
PROVIDERS: Emergency Provider Emergency Medicine; PCP Internal Medicine
DX: R39.198 Other difficulties with micturition (principal)
CPT/HCPCS: 36415; 51798; 80053; 81003; 85025; 99283

== ENCOUNTER → 2022-12-20 10:02 | Outpatient (CLI) | payer OTHER, SELFPAY ==
[2022-04-26 14:55] VITALS: BMI 26.8
--- NOTE | 2022-12-20 | DI.RAD.S_ITS ---
PROCEDURE: XR HIP W PEL IF DONE RT 2V INDICATIONS: right hip pain after fall 1-2 months ago TECHNIQUE: AP pelvis with lateral view(s) of the right hip(s). COMPARISON: [facility], CR, XR PELVIS WITH LATERAL HIP RIGHT, 03/01/2022, 15:57. [facility], CT, CT BIOPSY BONE DEEP, 03/19/2022, 8:50. [facility] MR, MR HIP RIGHT WITH/WITHOUT CONTRAST, 04/11/2022, 16:01. FINDINGS: Bones: No fractures or dislocations. Pelvic ring appears intact. No suspicious bony lesions. Chronic osseous avulsion fracture of the right ischial tuberosity. Bilateral mild degenerative arthritis of the hips. Soft tissues: The visualized bowel gas pattern is normal. No suspicious soft tissue calcifications. IMPRESSION: 1. [place] bilateral hip degenerative arthritis. 2. Chronic osseous avulsion fracture of the right ischial tuberosity. 3. No evidence acute bony abnormality. If clinical suspicion and/or symptoms persist, further assessment with repeat plain films, or advanced imaging (e.g., CT, MRI, or bone scan) may be helpful for further assessment. Dictated by: Messi Peace M.D. on 12/20/2022 at 13:34 Approved by: Messi Peace M.D. on 12/20/2022 at 13:40
== END ==
PROVIDERS: PCP Internal Medicine; Referring Provider Internal Medicine; Visit Provider Internal Medicine
DX: M16.0 Bilateral primary osteoarthritis of hip (principal); S32.611A Displaced avulsion fracture of right ischium, initial encounter for closed fracture; M25.551 Pain in right hip; W19.XXXA Unspecified fall, initial encounter
CPT/HCPCS: 73502

== ENCOUNTER 2023-03-21 11:04 | Emergency (ER) | payer OTHER, SELFPAY ==
[2022-04-26 14:55] VITALS: BMI 26.8
[2023-03-21] VITALS (8 sets, daily range): BP systolic 119–165; BP diastolic 68–92; PULSE 55–68; RESP 12–18; TEMP 36.2; O2SAT 94–95; BMI 29.5
[2023-03-21 15:52] LABS: Add Manual Diff / Slide Review NO; Basophils Absolute Auto 0 /uL (0-100); Basophils Percent Auto 0.4 % (0-2); Eosinophils Absolute Auto 100 /uL (0-450); Hematocrit 35.6 % (36-46); Hemoglobin 11.9 g/dL (12.0-16.0); Lymphocytes Absolute Auto 1000 /uL (1100-4500); Lymphocytes Percent Auto 18.7 % (25-40); Mean Corpuscular HGB Conc 33.4 % (30-36); Mean Corpuscular Hemoglobin 26.6 PG (26-34); Mean Corpuscular Volume 79.5 fL (80-100); Monocytes Absolute Auto 400 /uL (0-900); Monocytes Percent Auto 7.3 % (3-14); Neutrophils Absolute Auto 4000 /uL (1500-7000); Neutrophils Percent Auto 72.6 % (50-75); Platelet Count 154 X10^3/uL (150-400); Red Blood Cell Count 4.47 X10^6/uL (4.0-5.2); Red Cell Distribution Width 15.8 % (11.6-14.8); White Blood Cell Count 5.5 X10^3/uL (4.5-11.0)
[2023-03-21 15:56] LABS: Alanine Aminotransferase 96 IU/L (<35); Albumin Globulin Ratio 1.3 (1.0-2.8); Alkaline Phosphatase 411 U/L (38-126); Aspartate Aminotransferase 77 IU/L (14-36); BUN Creatinine Ratio 25.4 (6-22); Bilirubin Total 0.6 mg/dL (0.2-1.3); Blood Urea Nitrogen 17 mg/dL (7-17); Calcium 9.5 mg/dL (8.4-10.2); Carbon Dioxide 30 mmol/L (22-32); Chloride 99 mmol/L (98-107); Estimated Glomerular Filt Rate > 60 mL/min (>60); Globulin 3.1 g/dL (1.7-4.1); Glucose 142 mg/dL (70-100); HEMOLYSIS < 15 (0-50); Potassium 3.8 mmol/L (3.4-5.1); Sodium 135 mmol/L (137-145); Total Protein 7.1 g/dL (6.3-8.2)
--- NOTE | 2023-03-21 17:19 | DI.RAD.S_ITS ---
PROCEDURE: XR LUMBAR SPINE 2-3V INDICATIONS: Low back pain TECHNIQUE: 3 views of the lumbar spine were acquired. COMPARISON: [facility], , XR LUMBAR SPINE MIN 4V, 08/16/2020, 12:38. FINDINGS: Bones: 5 [id number] vertebrae are present. Moderate multilevel lumbar spondylosis with degenerative endplate changes, disc space loss, and endplate osteophyte formation. There is levoscoliosis of the lumbar spine as before. No acute vertebral body compression fractures. No suspicious bony lesions. Soft tissues: Overlying bowel gas pattern is normal. No suspicious soft tissue calcifications. IMPRESSION: Lumbar spine without acute osseous abnormalities. Moderate multilevel spondylosis. Levoscoliosis of the lumbar spine. Dictated by: Joey Huntley M.D. on 03/21/2023 at 18:19 Approved by: Joey Huntley M.D. on 03/21/2023 at 18:20
--- NOTE | 2023-03-21 17:19 | DI.CT.S_ITS ---
PROCEDURE: CT HEAD/BRAIN WO CON INDICATIONS: Leg weakness TECHNIQUE: Noncontrast 4.5 mm thick angled axial sections acquired from the foramen magnum to the vertex, with coronal and sagittal reformats. For radiation dose reduction, the following was used: automated exposure control, adjustment of mA and/or kV according to patient size. COMPARISON: [facility], CT, CT HEAD/BRAIN WO CON, 05/03/2019, 21:04. FINDINGS: Image quality: Excellent. CSF spaces: Basal cisterns are patent. No extra-axial fluid collections. Ventricles are normal in size and shape. Brain: No midline shift. No intracranial masses or hemorrhage. Ruelas-white matter interface is normal. Skull and face: Calvarium and visualized facial bones are intact, without suspicious lesions. Sinuses: Visualized sinuses and mastoids are clear. IMPRESSION: CT head without acute intracranial abnormalities. If there is persistent or high clinical suspicion for acute cerebrovascular ischemia/stroke, more sensitive evaluation with brain MRI can be considered. Dictated by: Joey Huntley M.D. on 03/21/2023 at 18:21 Approved by: Joey Huntley M.D. on 03/21/2023 at 18:21
--- NOTE | 2023-03-21 17:21 | ED.WEAKNESS ---
HPI - Weakness <Nahun Alba MD - Last Filed: 03/29/23 07:23> General Chief complaint: Weakness Stated complaint: legs are weak/hard to stand/walk, worsening Time Seen by Provider: 03/21/23 15:39 Mode of arrival: Wheelchair History of Present Illness HPI Narrative: Patient brought here by for complaints of bilateral leg weakness. . She states she has diabetic neuropathy of the legs. For the past 3 or 4 months she is had bilateral leg weakness at the end of the day. Which is not uncommon. This morning she got up and wanted to go to swimming pool, however she was unable to stand up. She slid off the bed without any injury. picked her up. They were able to get into the car. Denies any numbness or tingling weakness to the arms face. No slurred speech or facial droop. No headache. Patient denies any back pain with this. No recent illness. No fever chills. No urinary complaints. No saddle paresthesia. No bladder or bowel incontinence or retention. At bedside patient is able to stand up on exam and take slow steady steps which is baseline for her she states. Fast exam is negative. Denies any recent illness or changes in medications. Related Data Home Medications Medication Instructions Recorded Confirmed insulin aspart U-100 100 unit/mL 10 - 25 unit SQ TIDAC ##0 09/19/17 07/16/22 subcutaneous solution (Novolog U-100 Insulin aspart) metoprolol succinate 100 mg 100 mg PO DAILY ##0 09/19/17 07/16/22 tablet,extended release 24 hr (Toprol XL) omega-3 acid ethyl esters 1 gram 2 cap PO BID 04/17/19 07/16/22 capsule lisinopril 5 mg tablet 5 mg PO DAILY 01/06/20 07/16/22 metformin 500 mg tablet,extended 1,000 mg PO QAM 01/06/20 07/16/22 release 24 hr valacyclovir 500 mg tablet 500 mg PO DAILY PRN herpes 01/06/20 07/16/22 zolpidem 12.5 mg tablet,extended 20 mg PO BEDTIME 01/06/20 07/16/22 release,multiphase cholecalciferol (vitamin D3) 50 50 mcg PO DAILY 11/28/20 07/16/22 mcg (2,000 unit) capsule insulin glargine 100 unit/mL 30 unit SUBCUT QAM #0 mL 11/28/20 07/16/22 subcutaneous solution (Lantus U-100 Insulin) ketamine 100 mg sublingual narinder 200 - 300 mg sublingual Q2HR PRN 11/28/20 07/16/22 Pain (Scale Score 7-10) lamotrigine 25 mg tablet 150 mg PO DAILY 11/28/20 07/16/22 tizanidine 2 mg tablet 4 mg PO Q8H 11/28/20 07/16/22 vitamin B complex 1 tab PO DAILY 11/28/20 07/16/22 jlwvyh-ndhxbwjq-ergszim 3 cap PO TIDWM 09/09/21 07/16/22 36,000-114,000-180,000 unit capsule,delay rel (Creon) quetiapine 100 mg tablet (Seroquel) 100 mg PO BID #0 tabs 04/24/22 07/16/22 buprenorphine 2 mg-naloxone 0.5 mg 1.5 tab sublingual DAILY 07/16/22 07/16/22 sublingual tablet empagliflozin 25 mg tablet 25 mg PO QAM 07/16/22 07/16/22 (Jardiance) fluoxetine 20 mg capsule 60 mg PO DAILY 07/16/22 07/16/22 insulin glargine 100 unit/mL 20 unit SUBCUT QPM 07/16/22 07/16/22 subcutaneous solution (Lantus U-100 Insulin) irbesartan 150 mg tablet 150 mg PO QAM 07/16/22 07/16/22 lorazepam 2 mg tablet 4 mg PO TID 07/16/22 07/16/22 methylphenidate HCl 10 mg tablet 20 mg PO TID 07/16/22 07/16/22 oxybutynin chloride 5 mg 5 mg PO QPM 07/16/22 07/16/22 tablet,extended release 24 hr rosuvastatin 40 mg tablet 40 mg PO QAM 07/16/22 07/16/22 Previous Rx's Medication Instructions Recorded omeprazole 20 mg tablet,delayed 20 mg PO DAILY heart burn #30 tabs 02/22/22 release cephalexin 500 mg capsule 500 mg PO TID #15 caps 07/17/22 Allergies Allergy/AdvReac Type Severity Reaction Status Date / Time No Known Drug Allergies Allergy Verified 08/31/23 11:07 Review of Systems <Nahun Alba MD - Last Filed: 03/29/23 07:23> Review of Systems Narrative: GENERAL: negative chills, fatigue, malaise, fever, sweats. HEENT: negative sinus pain, ear pain, sore throat RESPIRATORY: negative dyspnea, cough CARDIOVASCULAR: negative chest pain, palpitations GASTROINTESTINAL: negative nausea, vomiting, abdominal pain : negative dysuria, frequency, hematuria MUSCULOSKELETAL: negative muscle or bony pain SKIN: negative rash, skin lesions NEUROLOGIC: Positive weakness, numbness, negative slurred speech negative facial droop ROS Unobtainable: All systems reviewed & are unremarkable except as noted in HPI and below Patient History <Nahun Alba MD - Last Filed: 03/29/23 07:23> Medical History Acute dehydration Acute infection of right ear Acute kidney injury Anxiety Arm pain Arthritis Benzodiazepine dependence, continuous Bipolar 1 disorder Chronic pain syndrome Chronic pancreatitis Episode of syncope Fracture of right foot Herniated nucleus pulposus, L4-5 History of pulmonary embolism Hypercholesterolemia with hypertriglyceridemia Hypersomnia Hypertension Insulin dependent diabetes mellitus Intractable vomiting with nausea Major depressive disorder 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 Neuropathy, diabetic Nonalcoholic steatohepatitis (HERRING) Obesity (BMI 30-39.9) Obstructive sleep apnea of adult Opiate dependence, continuous Renal insufficiency Snoring Type 2 diabetes mellitus Surgical History Gastrocnemius equinus of right lower extremity H/O hysterectomy for benign disease History of appendectomy History of cholecystectomy Lumbar post-laminectomy syndrome Right humeral fracture Family History Father COPD (chronic obstructive pulmonary disease) Mother Hypertension Sister Fibromyalgia Social History marital status: details: to Arnie household members: spouse lives independently: Yes caregiver/support person: No occupational status: unemployed Smoking Status: Never smoker alcohol intake: former substance use type: marijuana Smoking Status: Never smoker alcohol intake frequency: holidays/special occasions only Substance Use Type: does not use Exam <Nahun Alba MD - Last Filed: 03/29/23 07:23> Narrative Exam Narrative: GENERAL: in no distress, not toxic not dyspneic HEAD: Normocephalic. EYES: Pupils equal round ENT: Mucous membranes moist. NECK: Trachea midline. CARDIOVASCULAR: Regular rate and rhythm RESPIRATORY: Clear to auscultation. Breath sounds equal bilaterally. No wheezes, rales, or rhonchi. GASTROINTESTINAL: Abdomen soft, non-tender EXTREMITIES: No gross deformities. BACK: No flank tenderness. NEURO: AOx4. Fast exam is negative. Clear speech no facial droop light touch intact palate face hands and feet. Strong equal storage receipt poster. Negative pronator drift. Steady Romberg. Steady slow gait no foot drop. Strong bilateral patellar reflexes and ankle flexion-extension. Clear speech no facial droop steady self ?gait no foot drop. ?Light touch intact to bilateral face hands and feet. ?Strong equal storage receipt poster bilaterally and ankle flexion hip flexion and knee flexion. ?Strong bilateral patellar reflexes. ?Steady Romberg, negative pronator drift SKIN: Warm and dry PSYCH: Not anxious, is cooperative Initial Vital Signs Initial Vital Signs: Vital Signs Temperature 97.2 F L 03/21/23 11:07 Pulse Rate 68 03/21/23 11:07 Respiratory Rate 15 03/21/23 11:07 Blood Pressure 119/68 03/21/23 11:07 Pulse Oximetry 95 03/21/23 11:07 Oxygen Delivery Method Room Air 03/21/23 11:07 <Cortney Graham DO - Last Filed: 03/22/23 05:57> Initial Vital Signs Initial Vital Signs: Vital Signs Temperature 97.2 F L 03/21/23 11:07 Pulse Rate 68 03/21/23 11:07 Respiratory Rate 15 03/21/23 11:07 Blood Pressure 119/68 03/21/23 11:07 Pulse Oximetry 95 03/21/23 11:07 Oxygen Delivery Method Room Air 03/21/23 11:07 Scores <Nahun Alba MD - Last Filed: 03/29/23 07:23> NIH Stroke Scale Level of Conciousness: Alert, keenly responsive Ask month/age: Answers both questions correctly. Open/close eyes, close hand: Performs both tasks correctly Best gaze horizontal: Normal Visual castro: No visual loss Facial palsy: Normal symetrical movement Left arm drift: No drift for full 10 sec Right arm drift: No drift for full 10 sec Left leg drift: No drift for full 5 sec Right leg drift: No drift for full 5 sec Limb ataxia: Absent Sensory on face/arms/legs: Normal, no sensory loss Best language: No aphasia, normal Dysarthria: Normal Extinction or inattention: No abnormality Total NIH Stroke scale score: 0 <Cortney Graham DO - Last Filed: 03/22/23 05:57> NIH Stroke Scale Total NIH Stroke scale score: 0 Course <Nahun Alba MD - Last Filed: 03/29/23 07:23> Orders Ordered: ED Orders 03/21/23 15:14 CMP [Comprehensive Metabolic Panel] Stat Complete Blood Count AUTO DIFF Stat Magnesium Stat 03/21/23 17:19 CT head/brain wo con Stat XR lumbar spine 2-3V Stat Vital Signs Vital signs: Vital Signs - 8 hr 03/21/23 11:07 03/21/23 14:30 03/21/23 14:00 Temperature 97.2 F L Pulse Rate 68 55 L 57 L Respiratory Rate 15 16 Blood Pressure 119/68 150/84 H 135/80 Pulse Oximetry 95 95 95 Oxygen Delivery Method Room Air Room Air Room Air 03/21/23 16:30 03/21/23 15:00 03/21/23 15:30 Temperature Pulse Rate 67 63 65 Respiratory Rate 16 14 16 Blood Pressure 162/83 H 133/83 142/84 H Pulse Oximetry 95 94 94 Oxygen Delivery Method Room Air <Cortney Graham DO - Last Filed: 03/22/23 05:57> Orders Ordered: ED Orders 03/21/23 15:14 CMP [Comprehensive Metabolic Panel] Stat Complete Blood Count AUTO DIFF Stat Magnesium Stat 03/21/23 17:19 CT head/brain wo con Stat XR lumbar spine 2-3V Stat Vital Signs Vital signs: Vital Signs - 8 hr 03/21/23 11:07 03/21/23 14:30 03/21/23 14:00 Temperature 97.2 F L Pulse Rate 68 55 L 57 L Respiratory Rate 15 16 Blood Pressure 119/68 150/84 H 135/80 Pulse Oximetry 95 95 95 Oxygen Delivery Method Room Air Room Air Room Air 03/21/23 16:30 03/21/23 15:00 03/21/23 15:30 Temperature Pulse Rate 67 63 65 Respiratory Rate 16 14 16 Blood Pressure 162/83 H 133/83 142/84 H Pulse Oximetry 95 94 94 Oxygen Delivery Method Room Air MDM - Weakness <Nahun Alba MD - Last Filed: 03/29/23 07:23> Lab Data 03/21/23 15:14 03/21/23 15:14 Labs: Lab Results 03/21/23 03/21/23 03/21/23 Range/Units 15:14 15:14 15:14 WBC 5.5 (4.5-11.0) X10^3/uL RBC 4.47 (4.0-5.2) X10^6/uL Hgb 11.9 L (12.0-16.0) g/dL Hct 35.6 L (36-46) % MCV 79.5 L (80-100) fL MCH 26.6 (26-34) PG MCHC 33.4 (30-36) % RDW 15.8 H (11.6-14.8) % Plt Count 154 (150-400) X10^3/uL Neut % (Auto) 72.6 (50-75) % Lymph % (Auto) 18.7 L (25-40) % Sutton % (Auto) 7.3 (3-14) % Eos % (Auto) 1.0 L (2-4) % Baso % (Auto) 0.4 (0-2) % Neut # (Auto) 4000 (6063-4570) /uL Lymph # (Auto) 1000 L (6835-3366) /uL Sutton # (Auto) 400 (0-900) /uL Eos # (Auto) 100 (0-450) /uL Baso # (Auto) 0 (0-100) /uL Sodium 135 L (137-145) mmol/L Potassium 3.8 (3.4-5.1) mmol/L Chloride 99 (98-107) mmol/L Carbon Dioxide 30 (22-32) mmol/L BUN 17 (7-17) mg/dL Creatinine 0.67 (0.52-1.04) mg/dL Estimated GFR > 60 (>60) mL/min BUN/Creatinine Ratio 25.4 H (6-22) Glucose 142 H (70-100) mg/dL Calcium 9.5 (8.4-10.2) mg/dL Magnesium 1.8 (1.6-2.3) mg/dL Total Bilirubin 0.6 (0.2-1.3) mg/dL AST 77 H (14-36) IU/L ALT 96 H (<35) IU/L Alkaline Phosphatase 411 H (38-126) U/L Total Protein 7.1 (6.3-8.2) g/dL Albumin 4.0 (3.5-5.0) g/dL Globulin 3.1 (1.7-4.1) g/dL Albumin/Globulin Ratio 1.3 (1.0-2.8) [facility] Narrative Medical decision making narrative: Patient brought here by for complaints of bilateral leg weakness. . She states she has diabetic neuropathy of the legs. For the past 3 or 4 months she is had bilateral leg weakness at the end of the day. Which is not uncommon. This morning she got up and wanted to go to swimming pool, however she was unable to stand up. She slid off the bed without any injury. picked her up. They were able to get into the car. Denies any numbness or tingling weakness to the arms face. No slurred speech or facial droop. No headache. Patient denies any back pain with this. No recent illness. No fever chills. No urinary complaints. No saddle paresthesia. No bladder or bowel incontinence or retention. At bedside patient is able to stand up on exam and take slow steady steps which is baseline for her she states. Fast exam is negative. Denies any recent illness or changes in medications. After history and exam CBC CMP magnesium CT head [facility] CC: Leg weakness Complicating co-morbidities: Diabetic neuropathy Data collected from: Patient and Medical records reviewed: No recent visit for this complaint Differential considered: Includes but not limited to stroke diabetic neuropathy hypokalemia, electrolyte abnormality lumbar radiculopathy Exam documented above, pertinent findings include: Strong bilateral patellar reflexes ankle flexion-extension hip flexion-extension. Steady slow gait no foot drop. Lab Test results independently reviewed as above. Pertinent findings: WBC 5.5 hemoglobin 11.9 sodium 135 potassium 3.8 calcium 9.5 Imaging studies independently reviewed: CT head Consultations: None indicated at this time Treatments: None required at this time. Patient at baseline. Re-evaluations: Discussion: Diagnosis: Leg weakness 6:00 p.m.. Brennick: Sign out to Dr Graham, reassess patient CT imaging are pending. <Cortney Graham, DO - Last Filed: 03/22/23 05:57> Lab Data Labs: Lab Results 03/21/23 03/21/23 03/21/23 Range/Units 15:14 15:14 15:14 WBC 5.5 (4.5-11.0) X10^3/uL RBC 4.47 (4.0-5.2) X10^6/uL Hgb 11.9 L (12.0-16.0) g/dL Hct 35.6 L (36-46) % MCV 79.5 L (80-100) fL MCH 26.6 (26-34) PG MCHC 33.4 (30-36) % RDW 15.8 H (11.6-14.8) % Plt Count 154 (150-400) X10^3/uL Neut % (Auto) 72.6 (50-75) % Lymph % (Auto) 18.7 L (25-40) % Sutton % (Auto) 7.3 (3-14) % Eos % (Auto) 1.0 L (2-4) % Baso % (Auto) 0.4 (0-2) % Neut # (Auto) 4000 (2056-4800) /uL Lymph # (Auto) 1000 L (4784-4583) /uL Sutton # (Auto) 400 (0-900) /uL Eos # (Auto) 100 (0-450) /uL Baso # (Auto) 0 (0-100) /uL Sodium 135 L (137-145) mmol/L Potassium 3.8 (3.4-5.1) mmol/L Chloride 99 (98-107) mmol/L Carbon Dioxide 30 (22-32) mmol/L BUN 17 (7-17) mg/dL Creatinine 0.67 (0.52-1.04) mg/dL Estimated GFR > 60 (>60) mL/min BUN/Creatinine Ratio 25.4 H (6-22) Glucose 142 H (70-100) mg/dL Calcium 9.5 (8.4-10.2) mg/dL Magnesium 1.8 (1.6-2.3) mg/dL Total Bilirubin 0.6 (0.2-1.3) mg/dL AST 77 H (14-36) IU/L ALT 96 H (<35) IU/L Alkaline Phosphatase 411 H (38-126) U/L Total Protein 7.1 (6.3-8.2) g/dL Albumin 4.0 (3.5-5.0) g/dL Globulin 3.1 (1.7-4.1) g/dL Albumin/Globulin Ratio 1.3 (1.0-2.8) Imaging Data CT scan - head: Radiologist Impression: Close Lumbar Spine X-Ray (Signed) Joey Huntley - 03/21/[address] (Signed) Joey Huntley - 03/21/23 Hip X-Ray (Signed) Messi Peace - 12/20/22 Abdomen Ultrasound (Signed) Carlitos Kilgore - 07/16/22 Abdomen/Pelvis CT (Addendum) Trace Hernandez - 02/22/22 Abdomen/Pelvis CT (Addendum) Rom Leslie - 01/26/22 Telemetry Strips 09/08/21 Brain MRI (Signed) Joey Huntley - 09/08/21 Head/Neck CTA (Signed) Hudson Go - 09/08/21 Chest X-Ray (Signed) Bonilla,Osmany - 09/08/[address] (Signed) Bonilla,Osmany - 09/08/21 Telemetry Strips 09/02/21 Abdomen/Pelvis CT (Signed) Cody Desai - 09/02/21 Abdomen Ultrasound (Signed) Cody Desai - 09/01/21 Knee X-Ray (Signed) Subhash Lezamau - 10/04/20 Lumbar Spine MRI (Signed) Go,Muneer - 08/30/20 Lumbar Spine X-Ray (Signed) Lise,Fieyu - 08/16/20 Shoulder X-Ray (Signed) Go,Muneer - 05/17/20 Humerus X-Ray (Signed) Go,Muneer - 05/17/20 Abdomen MRI (Signed) Rom Leslie - 03/03/20 Abdomen MRI (Signed) Carlitos Kilgore - 01/06/20 Abdomen/Pelvis CT (Signed) Anna Marie Lezamaeyu - 01/05/20 Abdomen MRI (Signed) Shanthi Ernst - 09/09/19 Telemetry Strips 09/09/19 Abdomen/Pelvis CT (Signed) Messi Peace - 09/09/19 Abdomen Ultrasound (Signed) Messi Peace - 09/09/19 Knee X-Ray (Signed) Isaac Ramsey - 06/10/19 Mammogram Screening (Signed) Joey Huntley - 05/30/[address] (Signed) Crow Angulo - 05/03/19 Chest X-Ray (Signed) Crow Angulo - 05/03/19 Shoulder X-Ray (Signed) KayeChristina - 01/26/19 Ribs X-Ray (Signed) Shanthi Ernst - 11/28/18 Lumbar Spine MRI (Signed) Santy Wallace - 10/23/18 Abdomen Ultrasound (Signed) Rudy Apple - 03/17/18 Abdomen Ultrasound (Signed) Rudy Apple - 01/13/18 Launch?[place] [address] CT Scan Report Signed Patient: Sheela Brown MR#: [id number] : 1965 Acct:[id number] Age/Sex: 57 / F Date of Service: 03/21/23 Loc: ED Accession Number: [id number] ?? Procedure: CT head/brain wo con Ordering Provider: Nahun Alba MD PROCEDURE:? CT HEAD/BRAIN WO CON ? INDICATIONS:? Leg weakness ? TECHNIQUE:? Noncontrast 4.5 mm thick angled axial sections acquired from the foramen magnum to the vertex, with coronal and sagittal reformats.? For radiation dose reduction, the following was used:? automated exposure control, adjustment of mA and/or kV according to patient size.? ? COMPARISON:? [facility], CT, CT HEAD/BRAIN WO CON, 05/03/2019, 21:04. ? FINDINGS:? Image quality:? Excellent.? ? CSF spaces:? Basal cisterns are patent.? No extra-axial fluid collections.? Ventricles are normal in size and shape.? ? Brain:? No midline shift.? No intracranial masses or hemorrhage.? Ruelas-white matter interface is normal.? ? Skull and face:? Calvarium and visualized facial bones are intact, without suspicious lesions.? ? Sinuses:? Visualized sinuses and mastoids are clear.? ? IMPRESSION:? CT head without acute intracranial abnormalities. ? If there is persistent or high clinical suspicion for acute cerebrovascular ischemia/stroke, more sensitive evaluation with brain MRI can be considered.? ? ? Dictated by: Joey Huntley M.D. on 03/21/2023 at 18:21 ? ? Approved by: Joey Huntley M.D. on 03/21/2023 at 18:21?? lspine xray: Radiologist Impression: [address] [address] XRay Report Signed Patient: Sheela Brown MR#: [id number] : 1965 Acct:[id number] Age/Sex: 57 / F Date of Service: 03/21/23 Loc: ED Accession Number: [id number] ?? Procedure: XR lumbar spine 2-3V Ordering Provider: Nahun Alba MD PROCEDURE:? XR LUMBAR SPINE 2-3V ? INDICATIONS:? Low back pain ? TECHNIQUE:? 3 views of the lumbar spine were acquired.? ? COMPARISON:? [facility], CR, XR LUMBAR SPINE MIN 4V, 08/16/2020, 12:38. ? FINDINGS:? ? Bones:? 5 [id number] vertebrae are present. Moderate multilevel lumbar spondylosis with degenerative endplate changes, disc space loss, and endplate osteophyte formation.? There is levoscoliosis of the lumbar spine as before.? No acute vertebral body compression fractures.? No suspicious bony lesions.? ? Soft tissues:? Overlying bowel gas pattern is normal.? No suspicious soft tissue calcifications.? ? ? IMPRESSION:? Lumbar spine without acute osseous abnormalities.? Moderate multilevel spondylosis.? Levoscoliosis of the lumbar spine. ? ? Dictated by: Joey Huntley M.D. on 03/21/2023 at 18:19 ? ? Approved by: Joey Huntley M.D. on 03/21/2023 at 18:20?? MDM Narrative Medical decision making narrative: Patient brought here by for complaints of bilateral leg weakness. . She states she has diabetic neuropathy of the legs. For the past 3 or 4 months she is had bilateral leg weakness at the end of the day. Which is not uncommon. This morning she got up and wanted to go to swimming pool, however she was unable to stand up. She slid off the bed without any injury. picked her up. They were able to get into the car. Denies any numbness or tingling weakness to the arms face. No slurred speech or facial droop. No headache. Patient denies any back pain with this. No recent illness. No fever chills. No urinary complaints. No saddle paresthesia. No bladder or bowel incontinence or retention. At bedside patient is able to stand up on exam and take slow steady steps which is baseline for her she states. Fast exam is negative. Denies any recent illness or changes in medications. After history and exam CBC CMP magnesium CT head MDM CC: Leg weakness Complicating co-morbidities: Diabetic neuropathy Data collected from: Patient and Medical records reviewed: No recent visit for this complaint Differential considered: Includes but not limited to stroke diabetic neuropathy hypokalemia, electrolyte abnormality lumbar radiculopathy Exam documented above, pertinent findings include: Strong bilateral patellar reflexes ankle flexion-extension hip flexion-extension. Steady slow gait no foot drop. Lab Test results independently reviewed as above. Pertinent findings: WBC 5.5 hemoglobin 11.9 sodium 135 potassium 3.8 calcium 9.5 Imaging studies independently reviewed: CT head Consultations: None indicated at this time Treatments: None required at this time. Patient at baseline. Re-evaluations: Discussion: Diagnosis: Leg weakness 6:00 p.m.. Anjali: Sign out to Dr Graham, reassess patient CT imaging are pending. 03/21/23 Gladys: Patient signed out to myself by Dr. Alba. CT head C-spine and L-spine x-ray do not show any acute changes. Patient's labs were reviewed slightly anemic but close to baseline, sodium 135 glucose 142 AST ALT alk phosphatase slightly elevated consistent with priors normal bilirubin. Patient does not have any other acute changes on lab work. Patient ambulating here in the department without issue no other acute neurologic changes. Patient states she feels comfortable for discharge home. Discussed need for follow-up. Discharge Plan Departure Patient Disposition: Home Clinical Impression: Bilateral leg weakness Activity Restrictions/Additional Instructions: Please follow-up with your physician for recheck. Your labs today shows slight elevation in your liver enzymes but appears to be consistent with your priors. Please return for new or worsening symptoms, new back pain, new weakness loss of sensation, loss of bowel or bladder control, inability to lift or move her legs or other new or concerning changes. Prescriptions: No Action metoprolol succinate [Toprol XL] 100 MG tablet extended release 24 hr 100 mg PO DAILY Qty: 0 Rx Instructions: 8am insulin aspart U-100 [Novolog U-100 Insulin aspart] 100 UNIT/1 ML solution 10 - 25 unit SQ TIDAC Qty: 0 Rx Instructions: sliding scale Lantus U-100 Insulin 100 unit/mL solution 30 unit SUBCUT QAM Qty: 0 Rx Instructions: 30 Unit in the morning & 20 units at bedtime ketamine 100 mg narinder 200 - 300 mg sublingual Q2HR MDD 16 capsules PRN (Reason: Pain (Scale Score 7-10)) tizanidine 2 mg tablet 4 mg PO Q8H Rx Instructions: 7am, 12 pm, 5pm vitamin B complex Tablet 1 tab PO DAILY cholecalciferol (vitamin D3) 50 mcg (2,000 unit) capsule 50 mcg PO DAILY lamotrigine 25 mg tablet 150 mg PO DAILY Rx Instructions: 8am quetiapine [Seroquel] 100 mg tablet 100 mg PO BID Qty: 0 Rx Instructions: 7am, 7pm omega-3 acid ethyl esters 1 gram Capsule 2 cap PO BID Rx Instructions: 8am, 5pm Creon 36,000-114,000- 180,000 unit capsule,delayed release(DR/EC) 3 cap PO TIDWM Rx Instructions: 2 capsules by mouth with breakfast, 3 capsules with lunch and 2 capsules with dinner and 1 capsule with snacks buprenorphine-naloxone 2-0.5 mg tablet, sublingual 1.5 tab SUBLINGUAL DAILY methylphenidate HCl 10 mg tablet 20 mg PO TID Rx Instructions: 7am oxybutynin chloride 5 mg tablet extended release 24hr 5 mg PO QPM Rx Instructions: 5pm irbesartan 150 mg tablet 150 mg PO QAM Rx Instructions: 8am rosuvastatin 40 mg tablet 40 mg PO QAM Jardiance 25 mg tablet 25 mg PO QAM Rx Instructions: 8am lorazepam 2 MG tablet 4 mg PO TID Rx Instructions: 7am, 12pm, 5pm fluoxetine 20 mg capsule 60 mg PO DAILY insulin glargine [Lantus U-100 Insulin] 100 unit/mL solution 20 unit SUBCUT QPM cephalexin 500 mg capsule 500 mg PO TID Qty: 15 0RF valacyclovir 500 mg tablet 500 mg PO DAILY PRN (Reason: herpes) lisinopril 5 mg tablet 5 mg PO DAILY Rx Instructions: 8am metformin 500 mg tablet extended release 24 hr 1,000 mg PO QAM zolpidem 12.5 mg tablet,ext release multiphase 20 mg PO BEDTIME Rx Instructions: 7pm omeprazole 20 mg tablet,delayed release (DR/EC) 20 mg PO DAILY Qty: 30 0RF Referrals: Helen Smith MD [Primary Care Provider] - Stand Alone Forms: Patient Portal/API
--- NOTE | 2023-03-21 17:30 | PC.NURSE ---
Per Dr. Alba patient was allowed to take her ketamine 300 mg. MD. compounds patient's ketamine. (3, 100 mg capsules )
[2023-03-21 17:44] LABS: Magnesium 1.8 mg/dL (1.6-2.3)
== END 2023-03-21 19:40 | disposition home or self-care (01) ==
PROVIDERS: Emergency Medicine; Emergency Provider Emergency Medicine; PCP Internal Medicine
DX: R53.1 Weakness (principal); M54.50 Low back pain, unspecified
CPT/HCPCS: 36415; 70450; 72100; 80053; 83735; 85025; 99283; 99284

== ENCOUNTER 2023-05-12 17:14 | Observation (INO) | payer OTHER, SELFPAY ==
[2022-04-26 14:55] VITALS: BMI 26.8
[2023-05-12 17:24] VITALS: BP 155/83; PULSE 64; RESP 16; TEMP 36.9; O2SAT 95; BMI 30.2
[2023-05-12 17:36] VITALS: PULSE 65; O2SAT 97
[2023-05-12 17:45] VITALS: BP 108/73; PULSE 63; O2SAT 96
--- NOTE | 2023-05-12 17:52 | PC.NURSE ---
Addendum entered by Nicole Head R.N. 05/12/23 19:48: Notified provider of drop in blood sugar. Gave patient 118 ml apple juice, cheese and crackers. Patient tolerating oral ingestion. Addendum entered by Nicole Head R.N. 05/12/23 19:29: Spouse concerned because patients CGM reading 85 and dropping. Checked with our BS machine and it's 142. Also patient's spouse clarified that he gave 30 units of short acting insulin at 1602, not long acting. Original Note: Per patient's spouse patient took 50 units long acting insulin this morning and 25 units short acting at breakfast. Then patient took 30 units short acting at lunch. At 1602 patient has a finger stick glucose of 316 and took 30 units long acting insulin. In the ED patient has a finger stick glucose of 226. Patient is somnolent and slow to answer questions but will wake up. Spouse reports patient sleeps a lot and is typically sleeping in the afternoon on most days. Concerns today for high glucose levels. Patient wears continuos monitor but verified numbers with finger stick.
[2023-05-12 17:56] LABS: INR 1.1 (0.9-1.3); Prothrombin Time 12.8 SECONDS (10.1-12.7)
[2023-05-12 17:58] LABS: PTT Partial Thromboplastin Tim 33 SECONDS (26-36)
[2023-05-12 18:01] LABS: Add Manual Diff / Slide Review NO; Basophils Absolute Auto 0 /uL (0-100); Basophils Percent Auto 0.3 % (0-2); Eosinophils Absolute Auto 0 /uL (0-450); Eosinophils Percent Auto 0.6 % (2-4); Hematocrit 34.9 % (36-46); Hemoglobin 11.8 g/dL (12.0-16.0); Lymphocytes Absolute Auto 1000 /uL (1100-4500); Lymphocytes Percent Auto 13.6 % (25-40); Mean Corpuscular HGB Conc 33.8 % (30-36); Mean Corpuscular Hemoglobin 26.5 PG (26-34); Mean Corpuscular Volume 78.4 fL (80-100); Monocytes Absolute Auto 600 /uL (0-900); Monocytes Percent Auto 8.1 % (3-14); Neutrophils Absolute Auto 5400 /uL (1500-7000); Neutrophils Percent Auto 77.4 % (50-75); Platelet Count 192 X10^3/uL (150-400); Red Blood Cell Count 4.45 X10^6/uL (4.0-5.2)
[2023-05-12 18:03] LABS: Acetaminophen < 10 ug/mL (10-30); Alanine Aminotransferase 46 IU/L (<35); Albumin 4.2 g/dL (3.5-5.0); Albumin Globulin Ratio 1.3 (1.0-2.8); Alkaline Phosphatase 455 U/L (38-126); Aspartate Aminotransferase 53 IU/L (14-36); Bilirubin Total 0.4 mg/dL (0.2-1.3); Blood Urea Nitrogen 24 mg/dL (7-17); Carbon Dioxide 25 mmol/L (22-32); Chloride 99 mmol/L (98-107); Estimated Glomerular Filt Rate > 60 mL/min (>60); Ethanol (ETOH) < 10 mg/dL; Globulin 3.3 g/dL (1.7-4.1); Glucose 246 mg/dL (70-100); HEMOLYSIS < 15 (0-50); Lactate (Lactic Acid) 2.1 mmol/L (0.7-2.1); Potassium 4.1 mmol/L (3.4-5.1); Salicylate < 1.0 mg/dL (<20); Sodium 136 mmol/L (137-145); Total Protein 7.5 g/dL (6.3-8.2)
[2023-05-12 18:19] LABS: Prolactin 35.7 ng/mL (3.0-18.6)
--- NOTE | 2023-05-12 18:24 | DI.CT.S_ITS ---
PROCEDURE: CT HEAD/BRAIN WO CON INDICATIONS: Confusion. TECHNIQUE: Noncontrast 4.5 mm thick angled axial sections acquired from the foramen magnum to the vertex, with coronal and sagittal reformats. For radiation dose reduction, the following was used: automated exposure control, adjustment of mA and/or kV according to patient size. COMPARISON: [facility], CT, CT HEAD/BRAIN WO CON, 03/21/2023, 17:46. FINDINGS: Image quality: Excellent. CSF spaces: Basal cisterns are patent. No extra-axial fluid collections. Ventricles are normal in size and shape. Brain: No midline shift. No intracranial masses or hemorrhage. Ruelas-white matter interface is normal. Skull and face: Calvarium and visualized facial bones are intact, without suspicious lesions. Sinuses: Visualized sinuses and mastoids are clear. IMPRESSION: No CT evidence of acute intracranial abnormalities. Dictated by: Santy Wallace M.D. on 05/12/2023 at 18:47 Approved by: Santy Wallace M.D. on 05/12/2023 at 18:47
[2023-05-12 18:39] LABS: Creatine Kinase 77 U/L (30-135)
[2023-05-12 18:40] LABS: Ammonia (NH3) 113 umol/L (9-30)
[2023-05-12 18:52] LABS: Troponin I < 0.012 ng/mL (0.01-0.034)
--- NOTE | 2023-05-12 18:55 | ED.GENADULT ---
HPI - General Adult General Chief complaint: Diabetic Problem Stated complaint: High BG, Was over 350 Time Seen by Provider: 05/12/23 17:28 Source: patient, family, RN notes reviewed and old records reviewed Limitations: altered mental status History of Present Illness HPI narrative: This is a 57-year-old female with history of insulin-dependent diabetes, chronic pancreatitis, HERRING, bipolar disorder, hypertension who presents with elevated glucose and altered mental status. Patient presents with her family they state that she seemed to be more altered today, she is been sleeping a lot more than typical. They note that her monitor showed a glucose that was almost at the 350 range, her woke her up and told her she did do her insulin they gave her 30 units of her short-acting based on her usual protocol. He states that has been trending down words but she is still been sleepy and called the nurse hotline. After discussion patient has not been taking her lactulose for least a day or 2. Patient has most of her medications dispensed but does handle her own insulin as well as lactulose. Her family at bedside states that they do not typically monitor this. She is on buprenorphine phone daily she had her morning dose she takes it once daily and she gets ketamine a certain amount that he dispenses to her each day. He states she has not had any extra of that today. Patient denies any headache, no vision changes, she denies chest pain or shortness of breath, she denies any nausea or vomiting, no diarrhea or constipation. Denies any new dysuria urgency or frequency she does have some chronic incontinence. Patient denies any new back pain. They state no recent changes in medication. She does follow with gastroenterology at [facility]. She states she is been told she has nonalcoholic steatohepatitis. Patient states no prior hepatitis-B or C. She does not drink alcohol, denies tobacco or recreational drugs. states she is been very sleepy she seemed confused but has been able to converse but does not usually sleep through the evening which she has done today. He states she was able early clumsy while ambulating but was able to get to the car. They state no new medication changes. No recent new surgeries. Denies tobacco, alcohol or illicit. Her primary care is Dr. Helen Smith. Related Data Home Medications Medication Instructions Recorded Confirmed insulin aspart U-100 100 unit/mL 10 - 25 unit SQ TIDAC ##0 09/19/17 05/12/23 subcutaneous solution (Novolog U-100 Insulin aspart) metoprolol succinate 100 mg 100 mg PO DAILY ##0 09/19/17 05/12/23 tablet,extended release 24 hr (Toprol XL) omega-3 acid ethyl esters 1 gram 2 cap PO BID 04/17/19 05/12/23 capsule metformin 500 mg tablet,extended 1,000 mg PO QAM 01/06/20 05/12/23 release 24 hr cholecalciferol (vitamin D3) 50 50 mcg PO DAILY 11/28/20 05/12/23 mcg (2,000 unit) capsule insulin glargine 100 unit/mL 50 unit SUBCUT QAM #0 mL 11/28/20 05/12/23 subcutaneous solution (Lantus U-100 Insulin) ketamine 100 mg sublingual narinder 200 - 300 mg sublingual 5XD 11/28/20 05/12/23 lamotrigine 25 mg tablet 150 mg PO DAILY 11/28/20 05/12/23 tizanidine 2 mg tablet 4 mg PO DAILY 11/28/20 05/12/23 vtzlef-dpdwqntp-qzjmhdx 3 cap PO TIDWM 09/09/21 05/12/23 36,000-114,000-180,000 unit capsule,delay rel (Creon) buprenorphine 2 mg-naloxone 0.5 mg 1.5 tab sublingual DAILY 07/16/22 05/12/23 sublingual tablet irbesartan 150 mg tablet 300 mg PO QAM 07/16/22 05/12/23 lorazepam 2 mg tablet 4 mg PO TID 07/16/22 05/12/23 oxybutynin chloride 5 mg 5 mg PO QPM 07/16/22 05/12/23 tablet,extended release 24 hr rosuvastatin 40 mg tablet 40 mg PO QAM 07/16/22 05/12/23 fluoxetine 20 mg capsule 60 mg PO QAM 05/12/23 05/12/23 ocephr-lngqtolr-ygqxtpd 3 cap PO TIDWM 05/12/23 05/12/23 36,000-114,000-180,000 unit capsule,delay rel (Creon) omeprazole 20 mg capsule,delayed See Rx Instructions .Route .COMPLEX 05/12/23 05/12/23 release ziprasidone HCl 80 mg capsule 80 mg PO BID 05/12/23 05/12/23 zolpidem 10 mg tablet 10 mg PO BEDTIME 05/12/23 05/12/23 Allergies Allergy/AdvReac Type Severity Reaction Status Date / Time No Known Drug Allergies Allergy Verified 03/21/23 11:07 Review of Systems Review of Systems ROS Unobtainable: All systems reviewed & are unremarkable except as noted in HPI and below Patient History Medical History (Updated 05/12/23 @ 22:52 by Torey Nice MD) Incontinence of urine GERD (gastroesophageal reflux disease) Benzodiazepine dependence, continuous Opiate dependence, continuous 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 Obesity (BMI 30-39.9) Herniated nucleus pulposus, L4-5 Arm pain Intractable vomiting with nausea Chronic pancreatitis Acute infection of right ear Fracture of right foot Bipolar 1 disorder Acute dehydration Acute kidney injury History of pulmonary embolism Neuropathy, diabetic Arthritis Insulin dependent diabetes mellitus Chronic pain syndrome Nonalcoholic steatohepatitis (HERRING) Anxiety Major depressive disorder Renal insufficiency Hypercholesterolemia with hypertriglyceridemia Hypertension Obstructive sleep apnea of adult Type 2 diabetes mellitus Snoring Hypersomnia Episode of syncope Surgical History H/O hysterectomy for benign disease History of cholecystectomy History of appendectomy Gastrocnemius equinus of right lower extremity Right humeral fracture Lumbar post-laminectomy syndrome Family History Father COPD (chronic obstructive pulmonary disease) Mother Hypertension Sister Fibromyalgia Social History marital status: details: to Arnie household members: spouse lives independently: Yes caregiver/support person: No occupational status: unemployed Smoking Status: Never smoker alcohol intake: never substance use type: marijuana Smoking Status: Never smoker alcohol intake frequency: holidays/special occasions only Substance Use Type: does not use Exam Narrative Exam Narrative: GEN: well nourished, female, alert and oriented x 3, patient has slow slurred speech she falls asleep easily,, patient appears to be in mild distress. HEENT: Atraumatic, pupils are equal round reactive to light, extraocular movements are intact, no scleral icterus, nares are clear, TMs are clear with no fluid, there is no conjunctival pallor. Throat is clear without any exudates, erythema, tonsillar enlargement or uvular deviation HEART: Regular rate and rhythm without murmur, clicks, rubs. Pulses are equal in upper and lower extremities LUNGS:Lungs clear to auscultation, no wheezes, rales, crackles, chest moves symmetrically ABD:bowel sounds normal, soft, non-tender, no guarding, rebound, rigidity, no masses noted, no hepatosplenomegaly :No CVA tenderness MSCL: Non-tender, no muscle atrophy, muscles strength 5/5 upper and lower extremities, full range of motion. NEURO:CN 2-12 intact, sensation normal, no asterixis. No facial droop. SKIN: No rash, erythema or other skin changes Initial Vital Signs Initial Vital Signs: Vital Signs Temperature 98.4 F 05/12/23 17:24 Pulse Rate 64 05/12/23 17:24 Respiratory Rate 16 05/12/23 17:24 Blood Pressure 155/83 H 05/12/23 17:24 Pulse Oximetry 95 05/12/23 17:24 Oxygen Delivery Method Room Air 05/12/23 17:24 Course Orders Ordered: ED Orders 05/12/23 17:30 EKG-12 Lead Stat 05/12/23 17:40 Acetaminophen Stat Ammonia (NH3) Stat Complete Blood Count AUTO DIFF Stat Comprehensive Metabolic Panel Stat Ethanol (ETOH) Stat Lactate (Lactic Acid) Stat PTT Partial Thromboplastin Hitesh Stat Prolactin Stat Prothrombin Time INR Stat Salicylate Stat Thyroid Stimulating Hormone Stat Troponin & CK Cardiac Panel Stat 05/12/23 17:46 Blood Culture Stat 05/12/23 18:24 CT head/brain wo con Stat 05/12/23 20:15 Urinalysis and Microscopic Stat Urine Culture Stat Urine Drug Screen, Rapid Stat Fluoxetine HCl (Fluoxetine 20 Mg Capsule) 60 mg PO DAILY YARI Dextrose (D10w) 100 mls @ 1,200 mls/hr IV PRN PRN PRN Reason: Hypoglycemia Insulin Glargine (Insulin Glargine 100 Unit/Ml 3ml Pen) 50 unit SUBCUT DAILY YARI Insulin Human Lispro (Insulin Lispro 100 Unit/Ml 3ml Vial) 0 unit SUBCUT ACHS YARI; Protocol Last Admin: 05/12/23 22:25 Dose: Not Given Documented By: TLS Lactulose (Lactulose 20 Gm/30 Ml Solution) 20 gm PO TID YARI Lamotrigine (Lamotrigine 100 Mg Tablet) 150 mg PO DAILY YARI Losartan Potassium (Losartan 50 Mg Tablet) 100 mg PO DAILY [facility] Metoprolol Succinate (Metoprolol Er 50 Mg Tablet) 100 mg PO DAILY [facility] Naloxone HCl (Naloxone 0.4 Mg/Ml Vial) 0.2 mg IV Q2MIN PRN PRN Reason: Opiate Reversal Non-Formulary Medication (Ziphsz-Hfjqeiab-Lqguuyx [Creon]) 3 cap PO TIDWM YARI Nf (Ketamine 100 Mg (Compounded)) 300 mg DE 5XD PRN PRN Reason: Pain, Mild (1-3) Non-Formulary Medication (Buprenorphine-Naloxone) 1.5 tab SL DAILY YARI Oxybutynin Chloride (Oxybutynin 5 Mg Er Tab) 5 mg PO BEDTIME YARI Pantoprazole Sodium (Pantoprazole Dr 20 Mg Tablet) 20 mg PO Q48H YARI Tizanidine HCl (Tizanidine 4 Mg Tablet) 4 mg PO DAILY YARI Discontinued Medications Sodium Chloride (Normal Saline 0.9%) 1,000 mls @ 1,000 mls/hr IV BOLUS ONE Stop: 05/12/23 19:24 Last Infusion: 05/12/23 20:31 Dose: Infused Documented By: Admin: 05/12/23 19:13 Dose: 1,000 mls/hr Documented By: OW Lactulose (Lactulose 20 Gm/30 Ml Solution) 20 gm PO NOW ONE Stop: 05/12/23 19:18 Last Admin: 05/12/23 19:23 Dose: 20 gm Documented By: RL Non-Formulary Medication (Insulin Glargine [Lantus U-100 Insulin]) 50 unit SUBCUT QAM YARI Non-Formulary Medication (Omeprazole) 0 mg .ROUTE .COMPLEX YARI Non-Formulary Medication (Lamotrigine) 150 mg PO DAILY YARI Non-Formulary Medication (Irbesartan) 300 mg PO QAM YARI Ondansetron HCl (Ondansetron 4 Mg/2 Ml Inj) 4 mg IV Q2HR PRN PRN Reason: nausea Ondansetron HCl (Ondansetron 4 Mg Odt) 4 mg PO Q8HR PRN PRN Reason: Nausea And Vomiting Vital Signs Vital signs: Vital Signs - 8 hr 05/12/23 17:24 05/12/23 17:36 05/12/23 17:45 Temperature 98.4 F Pulse Rate 64 65 63 Respiratory Rate 16 Blood Pressure 155/83 H Pulse Oximetry 95 97 96 Oxygen Delivery Method Room Air 05/12/23 17:45 Temperature Pulse Rate Respiratory Rate Blood Pressure 108/73 Pulse Oximetry Oxygen Delivery Method Medical Decision Making Lab Data 05/12/23 17:40 05/12/23 17:40 Labs: Lab Results 05/12/23 05/12/23 Range/Units 17:40 19:35 WBC 7.0 (4.5-11.0) X10^3/uL RBC 4.45 (4.0-5.2) X10^6/uL Hgb 11.8 L (12.0-16.0) g/dL Hct 34.9 L (36-46) % MCV 78.4 L (80-100) fL MCH 26.5 (26-34) PG MCHC 33.8 (30-36) % RDW 15.0 H (11.6-14.8) % Plt Count 192 (150-400) X10^3/uL Neut % (Auto) 77.4 H (50-75) % Lymph % (Auto) 13.6 L (25-40) % [place] % (Auto) 8.1 (3-14) % Eos % (Auto) 0.6 L (2-4) % Baso % (Auto) 0.3 (0-2) % Neut # (Auto) 5400 (5951-5706) /uL Lymph # (Auto) 1000 L (4262-0546) /uL [place] # (Auto) 600 (0-900) /uL Eos # (Auto) 0 (0-450) /uL Baso # (Auto) 0 (0-100) /uL PT 12.8 H (10.1-12.7) SECONDS INR 1.1 (0.9-1.3) APTT 33 (26-36) SECONDS Sodium 136 L (137-145) mmol/L Potassium 4.1 (3.4-5.1) mmol/L Chloride 99 (98-107) mmol/L Carbon Dioxide 25 (22-32) mmol/L BUN 24 H (7-17) mg/dL Creatinine 0.75 (0.52-1.04) mg/dL Estimated GFR > 60 (>60) mL/min BUN/Creatinine Ratio 32.0 H (6-22) Glucose 246 H (70-100) mg/dL Lactate 2.1 1.2 (0.7-2.1) mmol/L Calcium 10.0 (8.4-10.2) mg/dL Total Bilirubin 0.4 (0.2-1.3) mg/dL AST 53 H (14-36) IU/L ALT 46 H (<35) IU/L Alkaline Phosphatase 455 H (38-126) U/L Ammonia 113 H (9-30) umol/L Total Creatine Kinase 77 (30-135) U/L Troponin I < 0.012 (0.01-0.034) ng/mL Total Protein 7.5 (6.3-8.2) g/dL Albumin 4.2 (3.5-5.0) g/dL Globulin 3.3 (1.7-4.1) g/dL Albumin/Globulin Ratio 1.3 (1.0-2.8) TSH 1.02 (0.47-4.68) uIU/mL Prolactin 35.7 H (3.0-18.6) ng/mL Salicylates < 1.0 (<20) mg/dL Acetaminophen < 10 (10-30) ug/mL Ethyl Alcohol < 10 ( - 10) mg/dL Point of Care Testing Glucose POC 102 Point of care testing: Point of Care Testing Glucose POC [address] scan - head: Radiologist's Impression: [address] [address] [address] Scan Report Signed Patient: Sheela Brown MR#: [id number] : 1965 Acct:[id number] Age/Sex: 57 / F Date of Service: 05/12/23 Loc: ED Accession Number: [id number] Procedure: CT head/brain wo con Ordering Provider: Cortney Graham D.O. PROCEDURE: CT HEAD/BRAIN WO CON INDICATIONS: Confusion. TECHNIQUE: Noncontrast 4.5 mm thick angled axial sections acquired from the foramen magnum to the vertex, with coronal and sagittal reformats. For radiation dose reduction, the following was used: automated exposure control, adjustment of mA and/or kV according to patient size. COMPARISON: [facility], CT, CT HEAD/BRAIN WO CON, 03/21/2023, 17:46. FINDINGS: Image quality: Excellent. CSF spaces: Basal cisterns are patent. No extra-axial fluid collections. Ventricles are normal in size and shape. Brain: No midline shift. No intracranial masses or hemorrhage. Ruelas-white matter interface is normal. Skull and face: Calvarium and visualized facial bones are intact, without suspicious lesions. Sinuses: Visualized sinuses and mastoids are clear. IMPRESSION: No CT evidence of acute intracranial abnormalities. Dictated by: Santy Wallace M.D. on 05/12/2023 at 18:47 Approved by: Santy Wallace M.D. on 05/12/2023 at 18:47 [facility] Narrative Medical decision making narrative: This is a 57-year-old female with known hepatic issues with increased altered mental status glucose was elevated almost a 350 on her monitor. Unclear if she is been giving herself her insulin appropriately family at bedside notes that she is been more altered today they did not think that she was altered yesterday. After discussion it is known as she has not been taking her lactulose at least today maybe for several days. She did have head CT which showed no acute change. Patient's white count is 7 hemoglobin appears stable at 11.8 compared to February, platelets are 192. INR is 1.1 with a PTT of 33. Sodium 136 potassium 4 1 with a CO2 of 25 BUN 24 creatinine is appropriate 0.75 glucose is 246 with a lactate of 2 1 LFTs are elevated but consistent with priors 53, 464 ALT, alk-phos of 455 with a bilirubin of 0.4. Patient's ammonia is 113 today. Patient did have troponin although no chest pain which is negative and a TSH she is 1.02. Prolactin 35 but patient has not had any seizure-like activity my suspicion is low for this being the source of her symptoms. Suspect hepatic encephalopathy is the source of her symptoms, patient had lactulose ordered. Contacted tell hospitalist Dr. Nice for observation versus inpatient admission for hepatic encephalopathy. He accepts for observation. Discussed patient does seem like she can likely the lactulose orally but can change to per rectum as needed. Patient is rechecked glucose was 100, patient had direct her about how much insulin to give earlier today. Discussed with staff did ask that they go ahead and feed her to make sure she does not continue to drop continue to monitor glucose. Discharge Plan Departure Patient Disposition: Admitted as Observation Clinical Impression: Acute hepatic encephalopathy Admit Date/Time: 05/12/23 19:53 Admit Provider: Torey Collins
[2023-05-12 19:12] LABS: Thyroid Stimulating Hormone 1.02 uIU/mL (0.47-4.68)
[2023-05-12] MEDS: SODIUM CHLORIDE 0.9% 1,000 ML 1000 ML IV (19:13)
[2023-05-12 19:22] LABS: Reflexed Lactate in 2 Hours Y
[2023-05-12] MEDS: LACTULOSE 20 GM/30 ML SOLUTION PO (19:23)
[2023-05-12 19:52] LABS: Lactate 2HR (Lactic Acid Rflx) 1.2 mmol/L (0.7-2.1)
[2023-05-12 20:22] VITALS: BMI 30.2
[2023-05-12 20:22] LABS: Appearance Urine UA CLEAR; Bilirubin Urine UA NEGATIVE (NEGATIVE); Color Urine UA YELLOW; Glucose Urine UA 1+ g/dL (Negative); Ketones Urine UA NEGATIVE (NEGATIVE); Leukocyte Esterase Urine UA TRACE (NEGATIVE); Nitrite Urine UA NEGATIVE (Negative); Occult Blood Urine UA 2+ (Negative); Protein Urine UA NEGATIVE (Negative); Specific Gravity Urine UA <=1.005 (1.000-1.035); Urobilinogen Urine UA 0.2 E.U./dL (0.2)
[2023-05-12 20:27] LABS: UR Morphine/Opiate cutoff 300 Negative (Negative); Ur Creatinine Normal (Normal); Ur Specific Gravity Normal (Normal); Urine Amphetamines Negative (Negative); Urine Barbiturates Negative (Negative); Urine Benzodiazepines Positive (Negative); Urine Cocaine Negative (Negative); Urine MDMA Negative (Negative); Urine Methadone Negative (Negative); Urine Methamphetamines Negative (Negative); Urine Oxycodone Negative (Negative); Urine Phencyclidine Negative (Negative); Urine Tetrahydrocannabinol Negative (Negative); Urine Tricyclic Antidepressant Negative (Negative); Urine pH Normal (Normal)
[2023-05-12 20:32] LABS: Bacteria Urine Few (2-10); RBC Urine 1-5/HPF (0-5/HPF); Squamous Epithelial Cell Urine 0-1 /HPF (0-5/HPF); WBC Urine 1-5/HPF (0-5/HPF)
[2023-05-12 20:33] LABS: Culture Indicated Urine Cult Not Indicated
[2023-05-12 21:00] VITALS: BP 132/88; PULSE 65; RESP 18; TEMP 36.6; O2SAT 95
--- NOTE | 2023-05-12 21:58 | PM.HP.1 ---
History of Present Illness History of Present Illness Date Patient Seen: 05/12/23 Chief complaint: High BG, Was over 350 Narrative: 57-year-old female with history of HERRING, insulin-dependent diabetes, chronic pancreatitis, bipolar disorder, hypertension, came from home confused with elevated blood sugar and ammonia level > 100. She was given po lactulose in ED and at the time of her arrival at floor she was more coherent. After mixing up lactulose with lamotrigine, she was able to tell me that she was not taking lactulose 3 times a day. Her reported to ED that she is in charge of lactulose and he helps with most of the other medications. 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 Obesity (BMI 30-39.9) Herniated nucleus pulposus, L4-5 Arm pain Intractable vomiting with nausea Chronic pancreatitis Acute infection of right ear Fracture of right foot Bipolar 1 disorder Acute dehydration Acute kidney injury History of pulmonary embolism Neuropathy, diabetic Arthritis Insulin dependent diabetes mellitus Chronic pain syndrome Nonalcoholic steatohepatitis (HERRING) Anxiety Major depressive disorder Renal insufficiency Hypercholesterolemia with hypertriglyceridemia Hypertension Obstructive sleep apnea of adult Type 2 diabetes mellitus Snoring Hypersomnia Episode of syncope Surgical History H/O hysterectomy for benign disease History of cholecystectomy History of appendectomy Gastrocnemius equinus of right lower extremity Right humeral fracture Lumbar post-laminectomy syndrome Family History Father COPD (chronic obstructive pulmonary disease) Mother Hypertension Sister Fibromyalgia Social History marital status: details: to Arnie household members: spouse lives independently: Yes caregiver/support person: No occupational status: unemployed Smoking Status: Never smoker alcohol intake: former substance use type: marijuana Meds Home Medications and Allergies Home Medications Medication Instructions Recorded Confirmed Type insulin aspart U-100 100 unit/mL 10 - 25 unit SQ TIDAC ##0 09/19/17 05/12/23 History subcutaneous solution (Novolog U-100 Insulin aspart) metoprolol succinate 100 mg 100 mg PO DAILY ##0 09/19/17 05/12/23 History tablet,extended release 24 hr (Toprol XL) omega-3 acid ethyl esters 1 gram 2 cap PO BID 04/17/19 05/12/23 History capsule metformin 500 mg tablet,extended 1,000 mg PO QAM 01/06/20 05/12/23 History release 24 hr cholecalciferol (vitamin D3) 50 50 mcg PO DAILY 11/28/20 05/12/23 History mcg (2,000 unit) capsule insulin glargine 100 unit/mL 50 unit SUBCUT QAM #0 mL 11/28/20 05/12/23 History subcutaneous solution (Lantus U-100 Insulin) ketamine 100 mg sublingual narinder 200 - 300 mg sublingual 5XD 11/28/20 05/12/23 History lamotrigine 25 mg tablet 150 mg PO DAILY 11/28/20 05/12/23 History tizanidine 2 mg tablet 4 mg PO DAILY 11/28/20 05/12/23 History qmecfp-yhhupdgt-nngdzxh 3 cap PO TIDWM 09/09/21 05/12/23 History 36,000-114,000-180,000 unit capsule,delay rel (Creon) buprenorphine 2 mg-naloxone 0.5 mg 1.5 tab sublingual DAILY 07/16/22 05/12/23 History sublingual tablet irbesartan 150 mg tablet 300 mg PO QAM 07/16/22 05/12/23 History lorazepam 2 mg tablet 4 mg PO TID 07/16/22 05/12/23 History oxybutynin chloride 5 mg 5 mg PO QPM 07/16/22 05/12/23 History tablet,extended release 24 hr rosuvastatin 40 mg tablet 40 mg PO QAM 07/16/22 05/12/23 History fluoxetine 20 mg capsule 60 mg PO QAM 05/12/23 05/12/23 History ejjdxu-bncrunwq-gzwnblz 3 cap PO TIDWM 05/12/23 05/12/23 History 36,000-114,000-180,000 unit capsule,delay rel (Creon) omeprazole 20 mg capsule,delayed See Rx Instructions .Route .COMPLEX 05/12/23 05/12/23 History release ziprasidone HCl 80 mg capsule 80 mg PO BID 05/12/23 05/12/23 History zolpidem 10 mg tablet 10 mg PO BEDTIME 05/12/23 05/12/23 History Allergies Allergy/AdvReac Type Severity Reaction Status Date / Time No Known Drug Allergies Allergy Verified 03/21/23 11:07 Review of Systems Review of Systems Narrative: Very limited due to encephalopathy. She was focused on not missing her pm dose of ketamine and wanted her Ambien 10 mg. Exam Vital Signs (past 8 hours): - 05/12/23 17:24 05/12/23 17:36 05/12/23 17:45 Temperature 98.4 F Pulse Rate 64 65 63 Respiratory Rate 16 Blood Pressure 155/83 H Pulse Oximetry 95 97 96 Oxygen Delivery Method Room Air 05/12/23 17:45 Temperature Pulse Rate Respiratory Rate Blood Pressure 108/73 Pulse Oximetry Oxygen Delivery Method Oxygen Delivery Method Room Air Const Other: In no distress, sitting in bed HENMT Other: normocephalic Eyes Other: eomi, reactive pupils Neck Other: supple Resp Other: Normal respiratory effort Cardio Other: RRR Skin Other: not jaundiced Neuro Other: w/o focal deficits Psych Other: encephalopathic Objective Labs 05/12/23 17:40 05/12/23 17:40 Labs: Laboratory Results - last 24 hr 05/12/23 05/12/23 05/12/23 17:40 19:35 20:15 WBC 7.0 RBC 4.45 Hgb 11.8 L Hct 34.9 L MCV 78.4 L MCH 26.5 MCHC 33.8 RDW 15.0 H Plt Count 192 Neut % (Auto) 77.4 H Lymph % (Auto) 13.6 L [place] % (Auto) 8.1 Eos % (Auto) 0.6 L Baso % (Auto) 0.3 Neut # (Auto) 5400 Lymph # (Auto) 1000 L [place] # (Auto) 600 Eos # (Auto) 0 Baso # (Auto) 0 PT 12.8 H INR 1.1 APTT 33 Sodium 136 L Potassium 4.1 Chloride 99 Carbon Dioxide 25 BUN 24 H Creatinine 0.75 Estimated GFR > 60 BUN/Creatinine Ratio 32.0 H Glucose 246 H Lactate 2.1 1.2 Calcium 10.0 Total Bilirubin 0.4 AST 53 H ALT 46 H Alkaline Phosphatase 455 H Ammonia 113 H Total Creatine Kinase 77 Troponin I < 0.012 Total Protein 7.5 Albumin 4.2 Globulin 3.3 Albumin/Globulin Ratio 1.3 TSH 1.02 Prolactin 35.7 H Urine Color Yellow Urine Appearance Clear Urine pH 5.0 Ur Specific [place] <=1.005 Urine Protein Negative Urine Glucose (UA) 1+ H Urine Ketones Negative Urine Occult Blood 2+ H Urine Nitrate Negative Urine Bilirubin Negative Urine Urobilinogen 0.2 Ur Leukocyte Esterase Trace H Urine RBC 1-5/hpf Urine WBC 1-5/hpf Ur Squamous Epith Cells 0-1 /hpf Urine Bacteria Few (2-10) H Urine Yeast 10-30/hpf H Ur Culture Indicated? Cult not indicated Salicylates < 1.0 U Opiates 300ng/mL cut Negative Ur Oxycodone Screen Negative Urine Methadone Screen Negative Acetaminophen < 10 Ur Barbiturates Screen Negative U Tricyclic Antidepress Negative Ur Phencyclidine Scrn Negative Ur Amphetamines Screen Negative U Methamphetamines Scrn Negative Ur MDMA Scrn (Ecstasy) Negative U Benzodiazepines Scrn Positive H Urine Cocaine Screen Negative U Marijuana (THC) Screen Negative Ethyl Alcohol < 10 Assessment & Plan Assessment and plan (1) Acute hepatic encephalopathy: Status: Acute Plan: Not compliant with home lactulose regimen. PO 20 g given in ED and another dose upon admission. Able to take PO, no need for enema. Placed in observation, likely able to go home tomorrow (2) Nonalcoholic steatohepatitis (HERRING): Status: Acute Plan: GI follow up Lactulose (3) Insulin dependent diabetes mellitus: Status: Chronic Plan: Lantus, SS Holding Metformin, restart on discharge if in PM (4) Chronic pain syndrome: Status: Chronic Plan: Buprenorphine (5) Chronic pancreatitis: Status: Chronic Plan: Pancreatic enzymes with meals (6) Polysubstance dependence: Status: Acute Plan: takes ativan, hold am dose - restart on discharge (7) Hypertension: Status: Acute Plan: Losartan, Metoprolol (8) GERD (gastroesophageal reflux disease): Status: Acute Plan: PPI (9) Incontinence of urine: Status: Acute Plan: Oxybutynin (10) Benzodiazepine dependence, continuous: Status: Acute
[2023-05-13] VITALS (7 sets, daily range): BP systolic 144–199; BP diastolic 81–115; PULSE 70–81; RESP 17–18; TEMP 36.4; O2SAT 95–98
--- NOTE | 2023-05-13 00:34 | PC.NURSE ---
Patient arrived with home medications. Included in this was a labeled bottle of capsules containing 100 mg ketamine each per pt report, approx 15 pills. The patient description matched the label on the bottle from the compounding pharmacy. Medication label describes ketamine 200-300 mg q2h for pain, with no route. Capsules had no identifying features and were filled with white powder. Patient reports taking 3 pills 5 times a day, for a total of 1500 mg ketamine daily. Patient reported administering this rectally via insufflation, by breaking apart the capsules and putting the powder into a syringe. Patient known to take this medication from prior visits when investigating charting from prior visits, most recently 03/21/23. Provider made aware that patient was requesting to take her last dose of 300 mg ketamine rectally. Provider OKd. ammonium sulfate operator abel Diaz contacted for advice, and ultimately came in to double check medication and dosage. Pharmacist identified medication, contacted provider, set aside one dose for the patient for that night, and took the rest down to pharmacy. This RN signed off on the medication with the pharmacist. Since requesting, patient has fallen asleep and has not woken up at the time of writing this.
[2023-05-13] MEDS: LACTULOSE 20 GM/30 ML SOLUTION PO ×2 (02:18→08:25)
[2023-05-13] MEDS: LOSARTAN 50 MG TABLET 100 MG PO (06:50)
[2023-05-13] MEDS: KETAMINE 300 EACH PR (06:51)
--- NOTE | 2023-05-13 07:29 | PC.NURSE ---
0648: Pt BP 199/115 96% RA HR 87 R 18 97.5. Pt requesting ketamine att. Dr. Nice made aware, order to give ketamine, buporenorphine and losartan now rather than 0900. Pharmacist Leah made this RN aware we do not carry dosage of buporenorphine, made aware. Orders followed through, requested pt to ask if could bring in home buporenorphine and creon to be verified w/ pharmacy.
[2023-05-13] MEDS: INSULIN GLARGINE 100 UNIT/ML 3ML PEN 50 UNIT SUBCUT (08:25)
[2023-05-13] MEDS: lamoTRIgine 100 MG TABLET 150 MG PO (08:27)
[2023-05-13] MEDS: METOPROLOL ER 50 MG TABLET 100 MG PO (08:29)
[2023-05-13] MEDS: FLUoxetine 20 MG CAPSULE 60 MG PO (08:29)
[2023-05-13] MEDS: TIZANIDINE 4 MG TABLET PO (08:29)
[2023-05-13] MEDS: INSULIN LISPRO 100 UNIT/ML 3ML VIAL SUBCUT (08:30)
[2023-05-13 08:38] LABS: Add Manual Diff / Slide Review NO; Basophils Absolute Auto 0 /uL (0-100); Basophils Percent Auto 0.3 % (0-2); Eosinophils Absolute Auto 0 /uL (0-450); Eosinophils Percent Auto 0.5 % (2-4); Hematocrit 37.1 % (36-46); Hemoglobin 12.5 g/dL (12.0-16.0); Lymphocytes Absolute Auto 700 /uL (1100-4500); Lymphocytes Percent Auto 8.9 % (25-40); Mean Corpuscular HGB Conc 33.6 % (30-36); Mean Corpuscular Hemoglobin 26.5 PG (26-34); Monocytes Absolute Auto 600 /uL (0-900); Monocytes Percent Auto 7.1 % (3-14); Neutrophils Absolute Auto 6600 /uL (1500-7000); Neutrophils Percent Auto 83.2 % (50-75); Platelet Count 213 X10^3/uL (150-400); Red Cell Distribution Width 15.2 % (11.6-14.8)
[2023-05-13 08:46] LABS: Ammonia (NH3) 44 umol/L (9-30)
[2023-05-13 08:52] LABS: Alanine Aminotransferase 50 IU/L (<35); Albumin 4.3 g/dL (3.5-5.0); Albumin Globulin Ratio 1.4 (1.0-2.8); Alkaline Phosphatase 502 U/L (38-126); Aspartate Aminotransferase 66 IU/L (14-36); BUN Creatinine Ratio 26.2 (6-22); Bilirubin Total 0.8 mg/dL (0.2-1.3); Blood Urea Nitrogen 17 mg/dL (7-17); Calcium 9.9 mg/dL (8.4-10.2); Carbon Dioxide 26 mmol/L (22-32); Chloride 98 mmol/L (98-107); Estimated Glomerular Filt Rate > 60 mL/min (>60); Glucose 196 mg/dL (70-100); HEMOLYSIS < 15 (0-50); Potassium 4.2 mmol/L (3.4-5.1); Sodium 136 mmol/L (137-145); Total Protein 7.3 g/dL (6.3-8.2)
[2023-05-13] MEDS: BUPRENORPHINE NALOXONE 1.5 EACH SL (09:07)
[2023-05-13] MEDS: LIPASE PROTEASE AMYLASE 2 EACH PO (09:07)
--- NOTE | 2023-05-13 10:30 | CM.DANOTE ---
Patient is a 57 yo female who was admitted on 05/12/23 for High Blood Sugars/Encephalopathy. Pt has [employer] for insurance and her PCP is Dr. Helen Smith. Per MD, pt with hx of diabetes, hypertension, bipolar do, depression, anxiety, chronic pain and prescribed Suboxone and prescribed Ketamine by Psychiatrist. Pt admitted after non-compliance with Lactulose at home and bp issues. Per MD, if pt's bp stable today then safe for d/c home later today. SW met bedside with pt and pt's spouse Arnie and explained role and they confirms they still live at home in [place] and pt is not working and spouse works from home for the past few years. Pt is independent with ADL's and mobility and does have a FWW that she uses at night. Pt does have a complex medical/mental health hx but spouse denies any hx of HH or SNF. Pt's last admit was twice in Aug 2021 last year after she contracted COVID 19 but was able to d/c home as pt was adamant that she was ready to d/c home and no needs and then had a fall at home with a fx. Pt confirms that her long time Psychiatrist is in [place] that they attend in person at least once a year and have Tele-health appointments regularly. Both pt and spouse feel pt is stable and safe for d/c home via spouse POV today and do not anticipate any further discharge planning needs at this time. Plan: SW to follow for plan of d/c to home later today via spouse POV and outpt f/u and no further SW needs at this time. MIGDALIA Umanzor Discharge Planning/Care Management CM Discharge Assessment Start: 05/13/23 10:27 Freq: Status: Active Protocol: Document 05/13/23 10:27 BF (Rec: 05/13/23 10:30 BF [id number]) Discharge Planning Assessment Assigned As[employer]yl[employer] MIGDALIA Purvis DPOA/Assigned Designee Name informally spouse Arnie Contact Information [phone] Advance Directives? No Advance Directives on File No History Provided By Patient,Significant Other, Medical Record Has Patient been admitted in last 30 No days? Comment last admit in Aug 2021 last year and discharged home with spouse Prior Living Arrangements House Household Members spouse Type of transporation used prior to Relies on Others admit Independent with ADL's Yes: mostly Is patient alert and oriented? Yes Needs Assistance With Managing Medications,Home Chores / Shopping Caregiver for Another No Comment Established with Psychiatrist in [place] [facility] Already Rented / Owned FWW / [place] Barriers to Discharge No Discharge Plan Home Transportation Arrangement Spouse Referrals Initiated None needed Additional Comment Patient/spouse deny the need for HH Whiteboard Updated in Patient Room with Yes name and ext. # of [employer]yl[employer] Review Status In Process Please Provide Date Initial DC 05/13/23 Assessment Was Performed Next Review Type Continued Stay Review
--- NOTE | 2023-05-13 10:36 | PC.NURSE ---
late entry: pt was hypertensive provider aware. dc when BP comes down (144/82). Pt reported that her glucose monitor alerted her she has high blood sugar. checked B. patient and wanted to discharge and just deal with insulin when she gets home. wrote down amount of insulin I had given her.
--- NOTE | 2023-05-14 17:03 | PM.DS.1 ---
History of Present Illness History of Present Illness Date Patient Seen: 05/12/23 Chief complaint: High BG, Was over 350 Narrative: Per admitting physician: 57-year-old female with history of HERRING, insulin-dependent diabetes, chronic pancreatitis, bipolar disorder, hypertension, came from home confused with elevated blood sugar and ammonia level > 100. She was given po lactulose in ED and at the time of her arrival at floor she was more coherent. After mixing up lactulose with lamotrigine, she was able to tell me that she was not taking lactulose 3 times a day. Her reported to ED that she is in charge of lactulose and he helps with most of the other medications. Discharge Providers Provider Date of admission: 05/12/23 19:53 Discharge Date: 05/13/23 Primary care physician: Helen Smith MD Discharge provider: Jeff Garcia MD Summary Hospital Course Discharge Diagnosis: 1. Acute hepatic encephalopathy 2. HERRING 3. Type 2 Diabetes on insulin 4. Chronic pain 5. Chronic pancreatitis 6. Hypertension 7. GERD Hospital Course: Ms. Brown was admitted with confusion. She acknowledged not taking her lactulose as prescribed. She had an elevated ammonia level. She was ordered for lactulose and improved rapidly. The next day she and family agreed she was back to her mental status baseline. She was encouraged to continue taking her lactulose at least every day and goal 2-3 bowel movements daily. She was encouraged to follow up with PCP within the next week. 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 Obesity (BMI 30-39.9) Herniated nucleus pulposus, L4-5 Arm pain Intractable vomiting with nausea Chronic pancreatitis Acute infection of right ear Fracture of right foot Bipolar 1 disorder Acute dehydration Acute kidney injury History of pulmonary embolism Neuropathy, diabetic Arthritis Insulin dependent diabetes mellitus Chronic pain syndrome Nonalcoholic steatohepatitis (HERRING) Anxiety Major depressive disorder Renal insufficiency Hypercholesterolemia with hypertriglyceridemia Hypertension Obstructive sleep apnea of adult Type 2 diabetes mellitus Snoring Hypersomnia Episode of syncope Surgical History H/O hysterectomy for benign disease History of cholecystectomy History of appendectomy Gastrocnemius equinus of right lower extremity Right humeral fracture Lumbar post-laminectomy syndrome Family History Father COPD (chronic obstructive pulmonary disease) Mother Hypertension Sister Fibromyalgia Social History marital status: details: rasheed Gaitan household members: spouse lives independently: Yes caregiver/support person: No occupational status: unemployed Smoking Status: Never smoker alcohol intake: never substance use type: marijuana Discharge Plan Discharge Plan Patient Disposition: Home Provider Discharge Comment: Ms. Brown was admitted with confusion. She had hepatic encephalopathy, this was probably because she was not taking enough lactulose. She improved with lactulose. She is encouraged to follow up with her PCP as soon as possible. Discharge orders & Medications Prescriptions: Continued metoprolol succinate [Toprol XL] 100 MG tablet extended release 24 hr 100 mg PO DAILY Qty: 0 Rx Instructions: 8am insulin aspart U-100 [Novolog U-100 Insulin aspart] 100 UNIT/1 ML solution 10 - 25 unit SQ TIDAC Qty: 0 Rx Instructions: sliding scale Lantus U-100 Insulin 100 unit/mL solution 50 unit SUBCUT QAM Qty: 0 ketamine 100 mg narinder 200 - 300 mg sublingual 5XD MDD 16 capsules Rx Instructions: uses rectally tizanidine 2 mg tablet 4 mg PO DAILY Rx Instructions: 1929 cholecalciferol (vitamin D3) 50 mcg (2,000 unit) capsule 50 mcg PO DAILY lamotrigine 25 mg tablet 150 mg PO DAILY Rx Instructions: 8am omega-3 acid ethyl esters 1 gram Capsule 2 cap PO BID Rx Instructions: 8am, 5pm Creon 36,000-114,000- 180,000 unit capsule,delayed release(DR/EC) 3 cap PO TIDWM Rx Instructions: 2 capsules by mouth with breakfast, 3 capsules with lunch and 2 capsules with dinner and 1 capsule with snacks buprenorphine-naloxone 2-0.5 mg tablet, sublingual 1.5 tab SUBLINGUAL DAILY oxybutynin chloride 5 mg tablet extended release 24hr 5 mg PO QPM Rx Instructions: 5pm irbesartan 150 mg tablet 300 mg PO QAM Rx Instructions: 8am rosuvastatin 40 mg tablet 40 mg PO QAM lorazepam 2 MG tablet 4 mg PO TID Rx Instructions: 7am, 12pm, 5pm metformin 500 mg tablet extended release 24 hr 1,000 mg PO QAM ziprasidone HCl 80 mg capsule 80 mg PO BID omeprazole 20 mg capsule,delayed release(DR/EC) See Rx Instructions .ROUTE .COMPLEX Rx Instructions: 20 mg orally, every other day fluoxetine 20 mg capsule 60 mg PO QAM zolpidem 10 mg Tablet 10 mg PO BEDTIME Rx Instructions: 1930 Creon 36,000-114,000- 180,000 unit capsule,delayed release(DR/EC) 3 cap PO TIDWM Follow up/Referrals: Helen Smith MD [Primary Care Provider] - 1 Week (hospitalized with hepatic encephalopathy) Diet/Activity/Treatments Diet: Regular Visit Report/Discharge Packet Instructions: Hepatic Encephalopathy Stand Alone Forms: Patient Portal/API, Stroke Signs & Symptoms Discharge Data Primary Care Provider: Helen Smith Attending Provider: Torey Collins Admit Date/Time: 05/12/23 19:53 Quality VTE Deep Vein Thrombosis/Pulmonary Embolism Present on Admission: No
== END 2023-05-13 10:10 | disposition home or self-care (01) ==
LOC: ED 19:43 → AC 19:55
PROVIDERS: Emergency Medicine; Admitting Provider Internal Medicine; Emergency Provider Emergency Medicine; Family Provider Internal Medicine; PCP Internal Medicine; Referring Provider Emergency Medicine; Visit Provider Internal Medicine
DX: K76.82 Hepatic encephalopathy (principal); K75.81 Nonalcoholic steatohepatitis (NASH); E11.9 Type 2 diabetes mellitus without complications; G89.4 Chronic pain syndrome; K86.1 Other chronic pancreatitis; I10 Essential (primary) hypertension; K21.9 Gastro-esophageal reflux disease without esophagitis; F19.20 Other psychoactive substance dependence, uncomplicated; F13.20 Sedative, hypnotic or anxiolytic dependence, uncomplicated; R32 Unspecified urinary incontinence; Z79.4 Long term (current) use of insulin; Z79.84 Long term (current) use of oral hypoglycemic drugs
CPT/HCPCS: 36415; 70450; 80053; 80305; 80320; 80329; 81001; 82140; 82550; 82962; 83605; 84146; 84443; 84484; 85025; 85610; 85730; 87040; 87086; 96360; 96372; 99284; G0378; G0480; J1815

== ENCOUNTER 2023-05-21 09:45 | Outpatient (RCR) | payer OTHER, SELFPAY ==
[2022-04-26 14:55] VITALS: BMI 26.8
--- NOTE | 2023-04-18 10:24 | PT.OPPOC ---
Physical, Occupational & Speech Therapy At [facility] Current Diagnoses Low back pain, unspecified (04/18/23) Visit Care Team Role Provider Type Helen Smith MD Attending Provider Physician Family Provider Primary Care Provider Referring Provider Specialty: Internal Medicine Address: [place], [address] Phone: Email: Plan Of Care PT-OP-T Assessment and Plan Start: 04/18/23 10:14 Freq: Status: Active Protocol: Document 04/18/23 10:24 AM (Rec: 04/18/23 12:00 AM [id number]) Physical Therapy Assessment Rehab Potential Rehabilitation Potential Fair Evaluation Complexity Number of Personal Factors/Comorbidities 3 or More Number of Body Systems Impaired 4 or More Clinical Presentation at Evaluation Stable Impairments Impairments Activity Tolerance,Balance, Functional Activities, Functional Mobility,Gait,Pain, Posture,ROM,Sensation,Soft Tissue Mobility,Strength Goals HEP Impairment Pt currently swims for exercise. Does not have strengthening program. Percussion Instrument Tuner Goal (LTG) Pt independent with HEP LTG Duration 06/13/23 5 sec STS squat Impairment Pt able to complete 5 in 44.6 seconds Short Term Goal (STG) Pt able to complete 5 in 35 sec. STG Duration 05/16/23 Assisted Goal (LTG) Pt able to complete 5 in <30 sec. 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 STG Duration 05/16/23 Percussion Instrument Tuner Goal (LTG) Pt able to mantain tandem stance for 20 sec ea LE LTG Duration 06/13/23 Oswestry Impairment Oswestry score of 38 Short Term Goal (STG) Pt with Oswestry score of 30 STG Duration 05/16/23 Assisted Goal (LTG) Pt with oswestry score of <22 LTG Duration 06/13/23 Standing tolerance Impairment Pt unable to stand more than 10 min Short Term Goal (STG) Pt able to stand for 15 min before need to sit. STG Duration 05/16/23 Assisted Goal (LTG) Pt able to stand for 20 min before need to sit down. LTG Duration 06/13/23 Assessment Summary Assessment Sheela Brown presents to PT with chronic hx of low back pain and LE weakness. Pt demonstrates strength deficits of elizabeth LE with LE strength grossly 4-/5. Pt demonstrated strength impairment and bilateral knee valgus with 5x STS test. Pt with balance impairments with difficulty with tasks that require NBOS. Pt with hx of falls. Pt tolerated supine strengthening well today without reported pain. Pt would benefit from continued PT to progress trunk and LE as tolerated to improve tolerance to functional tasks. Physical Therapy Plan Frequency and Duration Frequency of Treatment 2x/Week Duration of treatment (weeks) 8 Plan of Care Start Date 04/18/23 Plan of Care End Date 06/13/23 Therapeutic Interventions Therapeutic Interventions Balance Training,Coordination Training,Gait Training,Home Exercise Program,Joint Mobilizations,Manual Therapy, Neuromuscular Re-education, Patient/Caregiver Education, Self-Care/Home Management,Soft Tissue Mobilization, Therapeutic Activities, Therapeutic Exercises Modalities Cold Pack/Ice Massage,Electric Stimulation,Hot Packs, Ultrasound Next Visit Focus/Plan Next Note Type Treatment Note Next Visit Plan Progress LE and trunk strength , balance as tolerated Plan of Care Dates Plan of Care Start Date 04/18/23 Plan of Care End Date 06/13/23 Electronically Signed by: Elizabeth Dye, PT 04/18/23 [id number] If you are in agreement with this Plan of Care, please return a signed and dated copy. I have reviewed this Plan of Care and certify that the skilled therapy services above are required to meet the patient?s needs. Physician Signature Date Printed Name and Credentials Clinical Instructor Signature Printed Name and Credentials
--- NOTE | 2023-04-18 10:24 | PT.OIE ---
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 Neuropathy, diabetic Nonalcoholic steatohepatitis (HERRING) Obesity (BMI 30-39.9) Obstructive sleep apnea of adult Opiate dependence, continuous Renal insufficiency Snoring Type 2 diabetes mellitus Past Surgical History (Last Reviewed 03/21/23 @ 17:24 by Nahun Alba MD) Gastrocnemius equinus of right lower extremity H/O hysterectomy for benign disease History of appendectomy History of cholecystectomy Lumbar post-laminectomy syndrome Right humeral fracture Visit Care Team Role Provider Type Helen Smith MD Attending Provider Physician Family Provider Primary Care Provider Referring Provider Specialty: Internal Medicine Address: [place] [address] Phone: Email: Physical Therapy Initial Evaluation PT-OP-A Visit Information Start: 04/18/23 10:14 Freq: Status: Active Protocol: Document 04/18/23 10:24 AM (Rec: 04/18/23 12:00 AM [id number]) Out-Patient Physical Therapy Visit Information Visit Information Visit Type Initial Evaluation Visit Start Time 10:30 Visit Stop Time 11:20 Total Visit Minutes 50 Visit Number 1 Number of SANITATION WORKER CLEANING MACHINERY Visits 0 Evaluation Information Evaluation Date 04/18/23 Precautions Precautions Fall risk PT-OP-B Current Condition Start: 04/18/23 10:14 Freq: Status: Active Protocol: Document 04/18/23 10:24 AM (Rec: 04/18/23 12:00 AM [id number]) Current Condition History of Current Condition Onset Date Chronic Current Complaints LBP, weakness History of Current Condition Pt reports 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 Low back pain is chronic. Pt reports symptoms at back have been steady since her last surgery 1.5 years ago. Pt reports hx of falls, though reports that she has not fallen for a bit. Pt reports 5 falls in the last year. Pt reports that she has had previous laminectomy. Pt has had spinal cord stimulator for pain. Pt is near sided. Pt has implants in eyes and wears glassess for astigmatism. Pt reports that she does not have issues with navigating environment secondary to vision. Pt also has neuropathy at feet secondary to diabetes . Prior Treatments and Tests Pt reports that she has had PT before. Pt reports that she has been swimming for exercise for 30 min 4-5x/per week. Future Testing and Treatments Planned None Treatment Goals Patient/Caregiver Goals To improve LE strength. To decrease pain at low back though pt reports I am not very hopeful on that. Prior Functional Status Baseline Function- ADL's Needs Assist Baseline Function- Mobility Needs Assist Baseline Function- Work/School Pt has needed assist with cooking/cleaning tasks Current Functional Impairments (Reported) Functional Limitations- ADL's Pt able to wash/dress herself. Pt has help with cooking and cleaning. Pt with difficulty standing more than 10 min because of pain. Functional Limitations- Mobility/Gait Pt reports that she sometimes uses a cane or walker to walk, especially at night. PT-OP-C Subjective Start: 04/18/23 10:14 Freq: Status: Active Protocol: Document 04/18/23 10:24 AM (Rec: 04/18/23 12:00 AM [id number]) Patient Questionnaires Oswestry Low Back Index Oswestry Score 38 Oswestry Impairment 20 to 39% Impaired (Score 20- 39) OP-PT Pain Assessment Pain Assessment Grid Paper Pain Assessment Grid Completed Yes Location Low back pain Pain Location Details Diffuse low back pain, both sides Intensity 0 Scale Used Numeric (0 - 10) Description Sharp Description- Other Pt reports pain at 8/10 at the worst. Radiating Location none Pain Aggravating Factors ADL's,Activity,Standing, Walking Pain Alleviating Factors Medication,Rest Other Pain Alleviating Factors biofreeze PT-OP-D Balance Start: 04/18/23 10:14 Freq: Status: Active Protocol: Document 04/18/23 10:24 AM (Rec: 04/18/23 12:00 AM [id number]) OP-PT Balance Assessment Standing Balance Static Standing Balance Ability Normal Dynamic Standing Balance Ability Fair Balance Tests Single Limb Standing Single Limb- Right unable Single Limb- Left unable Semi-Tandem Standing Semi-Tandem Standing Balance 12 seconds Tandem Tandem Standing unable Gilliam Fall Scale Copyright Permission PT-OP-E Functional Tests Start: 04/18/23 10:14 Freq: Status: Active Protocol: Document 04/18/23 10:24 AM (Rec: 04/18/23 12:00 AM [id number]) Functional Tests Five Times Sit to Stand Test Score 44.6 Comments Pt reports R knee pain PT-OP-G Mobility & Gait Start: 04/18/23 10:14 Freq: Status: Active Protocol: Document 04/18/23 10:24 AM (Rec: 04/18/23 12:00 AM [id number]) OP Gait Assessment Gait Gait Assistance Required: Independent Assistive Devices Assistive Device None Gait Deviations General Gait Pattern Wide Based Gait Factors Limiting Gait Function Factors Limiting Gait Function Decreased Sensation,Decreased Strength,Limited Range of Motion,Pain,Poor Balance Comments Gait Comments Gait deviations with head turns PT-OP-J Posture/Palpation/Skin Start: 04/18/23 10:14 Freq: Status: Active Protocol: Document 04/18/23 10:24 AM (Rec: 04/18/23 12:00 AM [id number]) Posture Evaluation Position Standing Head/C-Spine Posture Forward Head T-Spine Posture Increased Kyphosis L-Spine Posture Flattened Shoulder Posture (L) Forward,(R) Forward Knee Posture (L) Genu Valgus,(R) Genu Valgus,(L) Ext. Tibial Torsion ,(R) Ext. Tibial Torsion Palpation Assessment Location Low back Palpation Findings None/Normal Palpation Details Pt without tenderness with palpation of lumbar paraspinals PT-OP-K Range of Motion Start: 04/18/23 10:14 Freq: Status: Active Protocol: Document 04/18/23 10:24 AM (Rec: 04/18/23 12:00 AM [id number]) Lumbar Spine Range of Motion Lumbar Spine Active Percentage Testing Position Standing Flexion 25 Extension 0 Rotation Left 25 Rotation Right 25 Lateral Flexion Left 25 Lateral Flexion Right 25 ROM Limitations Soft Tissue Tightness,Muscle Weakness,Pain Comments 0%= neutral, 25% is 25% of normal range PT-OP-M Strength Start: 04/18/23 10:14 Freq: Status: Active Protocol: Document 04/18/23 10:24 AM (Rec: 04/18/23 12:00 AM [id number]) Trunk Strength Trunk Manual Muscle Testing Core Stabilization Pt with difficulty with activation of lower abdominals . Hip Strength Hip Manual Muscle Testing Left Flexion (L2) 3+ Fair+ Extension (S1) 4- Good- Abduction 4- Good- Adduction 4- Good- External Rotation 4- Good- Internal Rotation 4- Good- Right Flexion (L2) 3+ Fair+ Extension (S1) 4- Good- Abduction 4- Good- Adduction 4- Good- External Rotation 4- Good- Internal Rotation 4- Good- Knee Strength Knee Manual Muscle Testing Left Flexion (S2) 4- Good- Extension (L3) 4 Good Right Flexion (S2) 4- Good- Extension (L3) 4- Good- Ankle/Foot Strength Ankle and Foot Manual Muscle Testing Left Dorsiflexion (L4) 4- Good- Right Dorsiflexion (L4) 4- Good- Plantarflexion (S1) 4- Good- PT-OP-Q Treatments Start: 04/18/23 10:14 Freq: Status: Active Protocol: Document 04/18/23 10:24 AM (Rec: 04/18/23 12:00 AM [id number]) Therapeutic Exercises Supine Exercises Bridge Side bilateral Reps/Minutes x5 SLR Side bilateral Reps/Minutes x5 Comments extensor lag Clamshell Side bilateral Reps/Minutes x5 Bent knee fall out Supine Exercise Name BKFO Side bilateral Reps/Minutes x5 ea side PT-OP-T Assessment and Plan Start: 04/18/23 10:14 Freq: Status: Active Protocol: Document 04/18/23 10:24 AM (Rec: 04/18/23 12:00 AM [id number]) Physical Therapy Assessment Rehab Potential Rehabilitation Potential Fair Evaluation Complexity Number of Personal Factors/Comorbidities 3 or More Number of Body Systems Impaired 4 or More Clinical Presentation at Evaluation Stable Impairments Impairments Activity Tolerance,Balance, Functional Activities, Functional Mobility,Gait,Pain, Posture,ROM,Sensation,Soft Tissue Mobility,Strength Goals HEP Impairment Pt currently swims for exercise. Does not have strengthening program. Incubator Machine Operator Goal (LTG) Pt independent with HEP LTG Duration 06/13/23 5 sec STS squat Impairment Pt able to complete 5 in 44.6 seconds Short Term Goal (STG) Pt able to complete 5 in 35 sec. STG Duration 05/16/23 Mcfp Goal (LTG) Pt able to complete 5 in <30 sec. 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 STG Duration 05/16/23 Mcfp Goal (LTG) Pt able to mantain tandem stance for 20 sec ea LE LTG Duration 06/13/23 Oswestry Impairment Oswestry score of 38 Short Term Goal (STG) Pt with Oswestry score of 30 STG Duration 05/16/23 Mcfp Goal (LTG) Pt with oswestry score of <22 LTG Duration 06/13/23 Standing tolerance Impairment Pt unable to stand more than 10 min Short Term Goal (STG) Pt able to stand for 15 min before need to sit. STG Duration 05/16/23 Incubator Machine Operator Goal (LTG) Pt able to stand for 20 min before need to sit down. LTG Duration 06/13/23 Assessment Summary Assessment Sheela Brown presents to PT with chronic hx of low back pain and LE weakness. Pt demonstrates strength deficits of elizabeth LE with LE strength grossly 4-/5. Pt demonstrated strength impairment and bilateral knee valgus with 5x STS test. Pt with balance impairments with difficulty with tasks that require NBOS. Pt with hx of falls. Pt tolerated supine strengthening well today without reported pain. Pt would benefit from continued PT to progress trunk and LE as tolerated to improve tolerance to functional tasks. Physical Therapy Plan Frequency and Duration Frequency of Treatment 2x/Week Duration of treatment (weeks) 8 Plan of Care Start Date 04/18/23 Plan of Care End Date 06/13/23 Therapeutic Interventions Therapeutic Interventions Balance Training,Coordination Training,Gait Training,Home Exercise Program,Joint Mobilizations,Manual Therapy, Neuromuscular Re-education, Patient/Caregiver Education, Self-Care/Home Management,Soft Tissue Mobilization, Therapeutic Activities, Therapeutic Exercises Modalities Cold Pack/Ice Massage,Electric Stimulation,Hot Packs, Ultrasound Next Visit Focus/Plan Next Note Type Treatment Note Next Visit Plan Progress LE and trunk strength , balance as tolerated
--- NOTE | 2023-04-25 10:32 | PT.OTN ---
Current Diagnoses Low back pain, unspecified (04/25/23) Physical Therapy Treatment Note PT-OP-A Visit Information Start: 04/18/23 10:14 Freq: Status: Active Protocol: Document 04/25/23 10:32 AM (Rec: 04/25/23 11:32 AM [id number]) Out-Patient Physical Therapy Visit Information Visit Information Visit Type Treatment Note Visit Start Time 10:32 Visit Stop Time 11:14 Total Visit Minutes 42 Visit Number 2 Precautions Precautions Fall risk, visual issues:pt reports that she is able to navigate environment PT-OP-B Current Condition Start: 04/18/23 10:14 Freq: Status: Active Protocol: Document 04/18/23 10:24 AM (Rec: 04/18/23 12:00 AM [id number]) Current Condition History of Current Condition Onset Date Chronic Current Complaints LBP, weakness History of Current Condition Pt reports 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 Low back pain is chronic. Pt reports symptoms at back have been steady since her last surgery 1.5 years ago. Pt reports hx of falls, though reports that she has not fallen for a bit. Pt reports 5 falls in the last year. Pt reports that she has had previous laminectomy. Pt has had spinal cord stimulator for pain. Pt is near sided. Pt has implants in eyes and wears glassess for astigmatism. Pt reports that she does not have issues with navigating environment secondary to vision. Pt also has neuropathy at feet secondary to diabetes . Prior Treatments and Tests Pt reports that she has had PT before. Pt reports that she has been swimming for exercise for 30 min 4-5x/per week. Future Testing and Treatments Planned None Treatment Goals Patient/Caregiver Goals To improve LE strength. To decrease pain at low back though pt reports I am not very hopeful on that. Prior Functional Status Baseline Function- ADL's Needs Assist Baseline Function- Mobility Needs Assist Baseline Function- Work/School Pt has needed assist with cooking/cleaning tasks Current Functional Impairments (Reported) Functional Limitations- ADL's Pt able to wash/dress herself. Pt has help with cooking and cleaning. Pt with difficulty standing more than 10 min because of pain. Functional Limitations- Mobility/Gait Pt reports that she sometimes uses a cane or walker to walk, especially at night. PT-OP-C Subjective Start: 04/18/23 10:14 Freq: Status: Active Protocol: Document 04/25/23 10:32 AM (Rec: 04/25/23 11:32 AM [id number]) OP-PT Subjective Patient Comments Patient Comments Pt reports good compliance with HEP. Pt denies increase in LBP PT-OP-D Balance Start: 04/18/23 10:14 Freq: Status: Active Protocol: Document 04/18/23 10:24 AM (Rec: 04/18/23 12:00 AM [id number]) OP-PT Balance Assessment Standing Balance Static Standing Balance Ability Normal Dynamic Standing Balance Ability Fair Balance Tests Single Limb Standing Single Limb- Right unable Single Limb- Left unable Semi-Tandem Standing Semi-Tandem Standing Balance 12 seconds Tandem Tandem Standing unable Gilliam Fall Scale Copyright Permission PT-OP-E Functional Tests Start: 04/18/23 10:14 Freq: Status: Active Protocol: Document 04/18/23 10:24 AM (Rec: 04/18/23 12:00 AM [id number]) Functional Tests Five Times Sit to Stand Test Score 44.6 Comments Pt reports R knee pain PT-OP-G Mobility & Gait Start: 04/18/23 10:14 Freq: Status: Active Protocol: Document 04/18/23 10:24 AM (Rec: 04/18/23 12:00 AM [id number]) OP Gait Assessment Gait Gait Assistance Required: Independent Assistive Devices Assistive Device None Gait Deviations General Gait Pattern Wide Based Gait Factors Limiting Gait Function Factors Limiting Gait Function Decreased Sensation,Decreased Strength,Limited Range of Motion,Pain,Poor Balance Comments Gait Comments Gait deviations with head turns PT-OP-J Posture/Palpation/Skin Start: 04/18/23 10:14 Freq: Status: Active Protocol: Document 04/18/23 10:24 AM (Rec: 04/18/23 12:00 AM [id number]) Posture Evaluation Position Standing Head/C-Spine Posture Forward Head T-Spine Posture Increased Kyphosis L-Spine Posture Flattened Shoulder Posture (L) Forward,(R) Forward Knee Posture (L) Genu Valgus,(R) Genu Valgus,(L) Ext. Tibial Torsion ,(R) Ext. Tibial Torsion Palpation Assessment Location Low back Palpation Findings None/Normal Palpation Details Pt without tenderness with palpation of lumbar paraspinals PT-OP-K Range of Motion Start: 04/18/23 10:14 Freq: Status: Active Protocol: Document 04/18/23 10:24 AM (Rec: 04/18/23 12:00 AM [id number]) Lumbar Spine Range of Motion Lumbar Spine Active Percentage Testing Position Standing Flexion 25 Extension 0 Rotation Left 25 Rotation Right 25 Lateral Flexion Left 25 Lateral Flexion Right 25 ROM Limitations Soft Tissue Tightness,Muscle Weakness,Pain Comments 0%= neutral, 25% is 25% of normal range PT-OP-M Strength Start: 04/18/23 10:14 Freq: Status: Active Protocol: Document 04/18/23 10:24 AM (Rec: 04/18/23 12:00 AM [id number]) Trunk Strength Trunk Manual Muscle Testing Core Stabilization Pt with difficulty with activation of lower abdominals . Hip Strength Hip Manual Muscle Testing Left Flexion (L2) 3+ Fair+ Extension (S1) 4- Good- Abduction 4- Good- Adduction 4- Good- External Rotation 4- Good- Internal Rotation 4- Good- Right Flexion (L2) 3+ Fair+ Extension (S1) 4- Good- Abduction 4- Good- Adduction 4- Good- External Rotation 4- Good- Internal Rotation 4- Good- Knee Strength Knee Manual Muscle Testing Left Flexion (S2) 4- Good- Extension (L3) 4 Good Right Flexion (S2) 4- Good- Extension (L3) 4- Good- Ankle/Foot Strength Ankle and Foot Manual Muscle Testing Left Dorsiflexion (L4) 4- Good- Right Dorsiflexion (L4) 4- Good- Plantarflexion (S1) 4- Good- PT-OP-Q Treatments Start: 04/18/23 10:14 Freq: Status: Active Protocol: Document 04/25/23 10:32 AM (Rec: 04/25/23 11:32 AM [id number]) Cardio Equipment Recumbent Stepper (Sci-Fit) Duration (Minutes) 5 Resistance 8 Seat Position 17 Gym Equipment Shuttle Recovery Unilateral squat Resistance 25# Shuttle Recovery Platform Stable Reps/Time 2x30 sec Bilateral squat Resistance 50# Shuttle Recovery Platform Stable Reps/Time x1 min Therapeutic Exercises Supine Exercises Abdominal iso Supine Exercise Name Swissball on thighs in hooklying, hands clasped- pushing down into ball Equipment Used light blue swissball Reps/Minutes 10x3 sec hold Bridge Side bilateral Reps/Minutes x10 SLR Side bilateral Reps/Minutes x5 Comments extensor lag on R Clamshell Side bilateral Reps/Minutes x5 Bent knee fall out Supine Exercise Name BKFO Side bilateral Reps/Minutes 2x10 Standing Exercises Chair squat Standing Exercise Name Chair squat at hi-low table Equipment Used hi-low table Reps/Minutes 1x10, 1x5 Comments cues to decrease knee valgus and for hip extension when standing Hip abduction Standing Exercise Name Standing hip abduction Side bilateral Resistance AROM Equipment Used railing Reps/Minutes 2x10 Hip extension Standing Exercise Name Standing hip extension Side bilateral Resistance AROM Equipment Used railing Reps/Minutes 2x10 PT-OP-T Assessment and Plan Start: 04/18/23 10:14 Freq: Status: Active Protocol: Document 04/25/23 10:32 AM (Rec: 04/25/23 11:32 AM [id number]) Physical Therapy Assessment Impairments Impairments Activity Tolerance,Balance, Functional Activities, Functional Mobility,Gait,Pain, Posture,ROM,Sensation,Soft Tissue Mobility,Strength Goals HEP Impairment Pt currently swims for exercise. Does not have strengthening program. Intermediate Goal (LTG) Pt independent with HEP LTG Duration 06/13/23 5 sec STS squat Impairment Pt able to complete 5 in 44.6 seconds Short Term Goal (STG) Pt able to complete 5 in 35 sec. STG Duration 05/16/23 Intermediate Goal (LTG) Pt able to complete 5 in <30 sec. 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 STG Duration 05/16/23 Intermediate Goal (LTG) Pt able to mantain tandem stance for 20 sec ea LE LTG Duration 06/13/23 Oswestry Impairment Oswestry score of 38 Short Term Goal (STG) Pt with Oswestry score of 30 STG Duration 05/16/23 Intermediate Goal (LTG) Pt with oswestry score of <22 LTG Duration 06/13/23 Standing tolerance Impairment Pt unable to stand more than 10 min Short Term Goal (STG) Pt able to stand for 15 min before need to sit. STG Duration 05/16/23 Intermediate Goal (LTG) Pt able to stand for 20 min before need to sit down. LTG Duration 06/13/23 Assessment Summary Assessment Pt tolerated PRE well today. Pt denied increase in low back pain throughout tx session today. Pt continues to demonstrate extensor lag with R SLR, though improved with L. Pt demonstrated improved knee control (decreased valgus) with STS squats with cueing today. Pt would benefit from continued PT to progress strength and mobility to improve tolerance to functional tasks. Physical Therapy Plan Frequency and Duration Frequency of Treatment 2x/Week Duration of treatment (weeks) 8 Plan of Care Start Date 04/18/23 Plan of Care End Date 06/13/23 Therapeutic Interventions Therapeutic Interventions Balance Training,Coordination Training,Gait Training,Home Exercise Program,Joint Mobilizations,Manual Therapy, Neuromuscular Re-education, Patient/Caregiver Education, Self-Care/Home Management,Soft Tissue Mobilization, Therapeutic Activities, Therapeutic Exercises Modalities Cold Pack/Ice Massage,Electric Stimulation,Hot Packs, Ultrasound Next Visit Focus/Plan Next Note Type Treatment Note Next Visit Plan Progress LE and trunk strength , balance as tolerated
--- NOTE | 2023-05-02 12:14 | PT.OTN ---
Current Diagnoses Low back pain, unspecified (05/02/23) Physical Therapy Treatment Note PT-OP-A Visit Information Start: 04/18/23 10:14 Freq: Status: Active Protocol: Document 05/02/23 12:14 AM (Rec: 05/02/23 13:45 AM [id number]) Out-Patient Physical Therapy Visit Information Visit Information Visit Type Treatment Note Visit Start Time 12:18 Visit Stop Time 13:00 Total Visit Minutes 42 Visit Number 3 Precautions Precautions Fall risk, visual issues:pt reports that she is able to navigate environment. Pt does require extra assistance to navigate environment in gym and up to from desk following tx. 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 Low back pain is chronic. Pt reports symptoms at back have been steady since her last surgery 1.5 years ago. Pt reports hx of falls, though reports that she has not fallen for a bit. Pt reports 5 falls in the last year. Pt reports that she has had previous laminectomy. Pt has had spinal cord stimulator for pain. Pt is near sided. Pt has implants in eyes and wears glassess for astigmatism. Pt reports that she does not have issues with navigating environment secondary to vision. Pt also has neuropathy at feet secondary to diabetes . Prior Treatments and Tests Pt reports that she has had PT before. Pt reports that she has been swimming for exercise for 30 min 4-5x/per week. Future Testing and Treatments Planned None PT-OP-C Subjective Start: 04/18/23 10:14 Freq: Status: Active Protocol: Document 05/02/23 12:14 AM (Rec: 05/02/23 13:45 AM [id number]) OP-PT Subjective Patient Comments Patient Comments Pt denies soreness after last session. PT-OP-D Balance Start: 04/18/23 10:14 Freq: Status: Active Protocol: Document 04/18/23 10:24 AM (Rec: 04/18/23 12:00 AM [id number]) OP-PT Balance Assessment Standing Balance Static Standing Balance Ability Normal Dynamic Standing Balance Ability Fair Balance Tests Single Limb Standing Single Limb- Right unable Single Limb- Left unable Semi-Tandem Standing Semi-Tandem Standing Balance 12 seconds Tandem Tandem Standing unable Gilliam Fall Scale Copyright Permission PT-OP-E Functional Tests Start: 04/18/23 10:14 Freq: Status: Active Protocol: Document 04/18/23 10:24 AM (Rec: 04/18/23 12:00 AM [id number]) Functional Tests Five Times Sit to Stand Test Score 44.6 Comments Pt reports R knee pain PT-OP-G Mobility & Gait Start: 04/18/23 10:14 Freq: Status: Active Protocol: Document 04/18/23 10:24 AM (Rec: 04/18/23 12:00 AM [id number]) OP Gait Assessment Gait Gait Assistance Required: Independent Assistive Devices Assistive Device None Gait Deviations General Gait Pattern Wide Based Gait Factors Limiting Gait Function Factors Limiting Gait Function Decreased Sensation,Decreased Strength,Limited Range of Motion,Pain,Poor Balance Comments Gait Comments Gait deviations with head turns PT-OP-J Posture/Palpation/Skin Start: 04/18/23 10:14 Freq: Status: Active Protocol: Document 04/18/23 10:24 AM (Rec: 04/18/23 12:00 AM [id number]) Posture Evaluation Position Standing Head/C-Spine Posture Forward Head T-Spine Posture Increased Kyphosis L-Spine Posture Flattened Shoulder Posture (L) Forward,(R) Forward Knee Posture (L) Genu Valgus,(R) Genu Valgus,(L) Ext. Tibial Torsion ,(R) Ext. Tibial Torsion Palpation Assessment Location Low back Palpation Findings None/Normal Palpation Details Pt without tenderness with palpation of lumbar paraspinals PT-OP-K Range of Motion Start: 04/18/23 10:14 Freq: Status: Active Protocol: Document 04/18/23 10:24 AM (Rec: 04/18/23 12:00 AM [id number]) Lumbar Spine Range of Motion Lumbar Spine Active Percentage Testing Position Standing Flexion 25 Extension 0 Rotation Left 25 Rotation Right 25 Lateral Flexion Left 25 Lateral Flexion Right 25 ROM Limitations Soft Tissue Tightness,Muscle Weakness,Pain Comments 0%= neutral, 25% is 25% of normal range PT-OP-M Strength Start: 04/18/23 10:14 Freq: Status: Active Protocol: Document 04/18/23 10:24 AM (Rec: 04/18/23 12:00 AM [id number]) Trunk Strength Trunk Manual Muscle Testing Core Stabilization Pt with difficulty with activation of lower abdominals . Hip Strength Hip Manual Muscle Testing Left Flexion (L2) 3+ Fair+ Extension (S1) 4- Good- Abduction 4- Good- Adduction 4- Good- External Rotation 4- Good- Internal Rotation 4- Good- Right Flexion (L2) 3+ Fair+ Extension (S1) 4- Good- Abduction 4- Good- Adduction 4- Good- External Rotation 4- Good- Internal Rotation 4- Good- Knee Strength Knee Manual Muscle Testing Left Flexion (S2) 4- Good- Extension (L3) 4 Good Right Flexion (S2) 4- Good- Extension (L3) 4- Good- Ankle/Foot Strength Ankle and Foot Manual Muscle Testing Left Dorsiflexion (L4) 4- Good- Right Dorsiflexion (L4) 4- Good- Plantarflexion (S1) 4- Good- PT-OP-Q Treatments Start: 04/18/23 10:14 Freq: Status: Active Protocol: Document 05/02/23 12:14 AM (Rec: 05/02/23 13:45 AM [id number]) Cardio Equipment Recumbent Stepper (Sci-Fit) Duration (Minutes) 6 Resistance 7 Seat Position 16 Gym Equipment Shuttle Recovery Unilateral squat Resistance 25# Shuttle Recovery Platform Stable Reps/Time 2x30 sec Bilateral squat Resistance 50# Shuttle Recovery Platform Stable Reps/Time x1 min Therapeutic Exercises Supine Exercises SAQ Resistance 2# Reps/Minutes 2x10 Comments To improve TKE with standing activities Bent knee fall out Supine Exercise Name BKFO Side bilateral Reps/Minutes x10 Standing Exercises Chair squat Standing Exercise Name Chair squat at hi-low table Equipment Used hi-low table, 23-25 in Reps/Minutes 1x10, 1x5 Comments cues to decrease knee valgus and for hip extension when standing Hip abduction Standing Exercise Name Standing hip abduction Side bilateral Resistance Meriwether Tb Equipment Used Treadmill rail Reps/Minutes 2x10 Hip extension Standing Exercise Name Standing hip extension Side bilateral Resistance Meriwether TB Equipment Used treadmill railing Reps/Minutes 2x10 PT-OP-T Assessment and Plan Start: 04/18/23 10:14 Freq: Status: Active Protocol: Document 05/02/23 12:14 AM (Rec: 05/02/23 13:45 AM [id number]) Physical Therapy Assessment Goals HEP Impairment Pt currently swims for exercise. Does not have strengthening program. Usp Goal (LTG) Pt independent with HEP LTG Duration 06/13/23 5 sec STS squat Impairment Pt able to complete 5 in 44.6 seconds Short Term Goal (STG) Pt able to complete 5 in 35 sec. STG Duration 05/16/23 Dispatch Lead Goal (LTG) Pt able to complete 5 in <30 sec. 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 STG Duration 05/16/23 Usp Goal (LTG) Pt able to mantain tandem stance for 20 sec ea LE LTG Duration 06/13/23 Oswestry Impairment Oswestry score of 38 Short Term Goal (STG) Pt with Oswestry score of 30 STG Duration 05/16/23 Dispatch Lead Goal (LTG) Pt with oswestry score of <22 LTG Duration 06/13/23 Standing tolerance Impairment Pt unable to stand more than 10 min Short Term Goal (STG) Pt able to stand for 15 min before need to sit. STG Duration 05/16/23 Usp Goal (LTG) Pt able to stand for 20 min before need to sit down. LTG Duration 06/13/23 Assessment Summary Assessment Pt tolerated PRE well today. Pt demonstrates improving knee control with STS squats, though reported some discomfort at R lateral knee. Pt demonstrated decrased stability at R LE with banded hip exercises. Pt without production of low back pain during tx session today. Physical Therapy Plan Frequency and Duration Frequency of Treatment 2x/Week Duration of treatment (weeks) 8 Plan of Care Start Date 04/18/23 Plan of Care End Date 06/13/23 Therapeutic Interventions Therapeutic Interventions Balance Training,Coordination Training,Gait Training,Home Exercise Program,Joint Mobilizations,Manual Therapy, Neuromuscular Re-education, Patient/Caregiver Education, Self-Care/Home Management,Soft Tissue Mobilization, Therapeutic Activities, Therapeutic Exercises Modalities Cold Pack/Ice Massage,Electric Stimulation,Hot Packs, Ultrasound Next Visit Focus/Plan Next Note Type Treatment Note Next Visit Plan Progress LE and trunk strength , initiate more balance into next tx-CGA
--- NOTE | 2023-05-28 11:49 | PT.OPDS ---
Current Diagnoses Low back pain, unspecified (05/21/23) Visit Care Team Role Provider Type Helen Smith MD Attending Provider Physician Family Provider Primary Care Provider Referring Provider Specialty: Internal Medicine Address: [place], [place], [facility] Email: Visit Number Visit Number 5 Discharge Summary PT-OP-B Current Condition Start: 04/18/23 10:14 Freq: Status: Active Protocol: Document 05/02/23 12:14 AM (Rec: 05/02/23 13:45 AM [id number]) Current Condition History of Current Condition Onset Date Chronic Current Complaints LBP, weakness History of Current Condition Pt reports 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 Low back pain is chronic. Pt reports symptoms at back have been steady since her last surgery 1.5 years ago. Pt reports hx of falls, though reports that she has not fallen for a bit. Pt reports 5 falls in the last year. Pt reports that she has had previous laminectomy. Pt has had spinal cord stimulator for pain. Pt is near sided. Pt has implants in eyes and wears glassess for astigmatism. Pt reports that she does not have issues with navigating environment secondary to vision. Pt also has neuropathy at feet secondary to diabetes . Prior Treatments and Tests Pt reports that she has had PT before. Pt reports that she has been swimming for exercise for 30 min 4-5x/per week. Future Testing and Treatments Planned None PT-OP-C Subjective Start: 04/18/23 10:14 Freq: Status: Active Protocol: Document 05/21/23 09:50 NBM (Rec: 05/21/23 10:25 NBM [id number]) OP-PT Subjective Patient Comments Patient Comments Sheela reports she did her ex 's over the weekend and is comfortable with them. PT-OP-D Balance Start: 04/18/23 10:14 Freq: Status: Active Protocol: Document 04/18/23 10:24 AM (Rec: 04/18/23 12:00 AM [id number]) OP-PT Balance Assessment Standing Balance Static Standing Balance Ability Normal Dynamic Standing Balance Ability Fair Balance Tests Single Limb Standing Single Limb- Right unable Single Limb- Left unable Semi-Tandem Standing Semi-Tandem Standing Balance 12 seconds Tandem Tandem Standing unable Gilliam Fall Scale Copyright Permission PT-OP-E Functional Tests Start: 04/18/23 10:14 Freq: Status: Active Protocol: Document 04/18/23 10:24 AM (Rec: 04/18/23 12:00 AM [id number]) Functional Tests Five Times Sit to Stand Test Score 44.6 Comments Pt reports R knee pain PT-OP-G Mobility & Gait Start: 04/18/23 10:14 Freq: Status: Active Protocol: Document 04/18/23 10:24 AM (Rec: 04/18/23 12:00 AM [id number]) OP Gait Assessment Gait Gait Assistance Required: Independent Assistive Devices Assistive Device None Gait Deviations General Gait Pattern Wide Based Gait Factors Limiting Gait Function Factors Limiting Gait Function Decreased Sensation,Decreased Strength,Limited Range of Motion,Pain,Poor Balance Comments Gait Comments Gait deviations with head turns PT-OP-J Posture/Palpation/Skin Start: 04/18/23 10:14 Freq: Status: Active Protocol: Document 04/18/23 10:24 AM (Rec: 04/18/23 12:00 AM [id number]) Posture Evaluation Position Standing Head/C-Spine Posture Forward Head T-Spine Posture Increased Kyphosis L-Spine Posture Flattened Shoulder Posture (L) Forward,(R) Forward Knee Posture (L) Genu Valgus,(R) Genu Valgus,(L) Ext. Tibial Torsion ,(R) Ext. Tibial Torsion Palpation Assessment Location Low back Palpation Findings None/Normal Palpation Details Pt without tenderness with palpation of lumbar paraspinals PT-OP-K Range of Motion Start: 04/18/23 10:14 Freq: Status: Active Protocol: Document 04/18/23 10:24 AM (Rec: 04/18/23 12:00 AM [id number]) Lumbar Spine Range of Motion Lumbar Spine Active Percentage Testing Position Standing Flexion 25 Extension 0 Rotation Left 25 Rotation Right 25 Lateral Flexion Left 25 Lateral Flexion Right 25 ROM Limitations Soft Tissue Tightness,Muscle Weakness,Pain Comments 0%= neutral, 25% is 25% of normal range PT-OP-M Strength Start: 04/18/23 10:14 Freq: Status: Active Protocol: Document 04/18/23 10:24 AM (Rec: 04/18/23 12:00 AM [id number]) Trunk Strength Trunk Manual Muscle Testing Core Stabilization Pt with difficulty with activation of lower abdominals . Hip Strength Hip Manual Muscle Testing Left Flexion (L2) 3+ Fair+ Extension (S1) 4- Good- Abduction 4- Good- Adduction 4- Good- External Rotation 4- Good- Internal Rotation 4- Good- Right Flexion (L2) 3+ Fair+ Extension (S1) 4- Good- Abduction 4- Good- Adduction 4- Good- External Rotation 4- Good- Internal Rotation 4- Good- Knee Strength Knee Manual Muscle Testing Left Flexion (S2) 4- Good- Extension (L3) 4 Good Right Flexion (S2) 4- Good- Extension (L3) 4- Good- Ankle/Foot Strength Ankle and Foot Manual Muscle Testing Left Dorsiflexion (L4) 4- Good- Right Dorsiflexion (L4) 4- Good- Plantarflexion (S1) 4- Good- PT-OP-T Assessment and Plan Start: 04/18/23 10:14 Freq: Status: Active Protocol: Document 05/28/23 11:49 AM (Rec: 05/28/23 11:51 AM [id number]) Physical Therapy Plan Discharge Physical Therapy Discharge Reasons Patient Request Discharge Comments Pt was seen in PT for 5 visits between 04/18-05/21. Pt's called to report that pt feels that PT is not helping at this time. Pt d/c from PT today.
== END 2023-06-04 09:06 | disposition home or self-care (01) ==
LOC: PHYS 09:45
PROVIDERS: Family Provider Internal Medicine; PCP Internal Medicine; Referring Provider Internal Medicine; Visit Provider Internal Medicine
DX: M54.50 Low back pain, unspecified (principal)
CPT/HCPCS: 97110; 97162

== ENCOUNTER → 2023-05-21 10:46 | Outpatient (CLI) | payer OTHER, SELFPAY ==
[2023-05-12 20:22] VITALS: BMI 30.2
[2023-05-21 11:17] LABS: Ammonia (NH3) 47 umol/L (9-30)
== END ==
PROVIDERS: Family Provider Internal Medicine; PCP Internal Medicine; Referring Provider Internal Medicine; Visit Provider Internal Medicine
DX: K76.82 Hepatic encephalopathy (principal)
CPT/HCPCS: 36415; 82140

== ENCOUNTER → 2023-06-18 11:24 | Outpatient (CLI) | payer OTHER, SELFPAY ==
[2023-06-18 12:11] LABS: Ammonia (NH3) 40 umol/L (9-30)
== END ==
PROVIDERS: Family Provider Internal Medicine; PCP Internal Medicine; Referring Provider Internal Medicine; Visit Provider Internal Medicine
DX: K76.82 Hepatic encephalopathy (principal)
CPT/HCPCS: 36415; 82140

== ENCOUNTER → 2023-06-24 09:03 | Outpatient (CLI) | payer OTHER, SELFPAY ==
[2023-06-24 10:13] LABS: Hemoglobin A1C% w Est Avg Glu 7.5 % (4.0-6.0)
[2023-06-24 10:23] LABS: Alanine Aminotransferase 624 IU/L (<35); Albumin 4.1 g/dL (3.5-5.0); Albumin Globulin Ratio 1.4 (1.0-2.8); Alkaline Phosphatase 594 U/L (38-126); BUN Creatinine Ratio 19.4 (6-22); Bilirubin Total 0.9 mg/dL (0.2-1.3); Blood Urea Nitrogen 21 mg/dL (7-17); Calcium 9.7 mg/dL (8.4-10.2); Carbon Dioxide 24 mmol/L (22-32); Chloride 97 mmol/L (98-107); Cholesterol 182 mg/dL (140-199); Estimated Glomerular Filt Rate 59 mL/min (>60); Globulin 2.9 g/dL (1.7-4.1); Glucose 268 mg/dL (70-100); HDL Cholesterol 86 mg/dL (40-60); HEMOLYSIS < 15 (0-50); LDL Cholesterol Calculated 74 mg/dL (<100); Potassium 4.7 mmol/L (3.4-5.1); Sodium 134 mmol/L (137-145); Triglycerides 109 mg/dL (35-150)
[2023-06-24 10:29] LABS: Aspartate Aminotransferase 1120 IU/L (14-36)
[2023-06-24 11:48] LABS: Creatinine Urine Random 96.2 mg/dL
[2023-06-24 12:04] LABS: Microalbumi Creatinin Ratio Ur 283.7 ug/mg CR (<30); Microalbumin Urine Random 27.3 mg/dL (0-1.6)
== END ==
PROVIDERS: Family Provider Internal Medicine; PCP Internal Medicine; Referring Provider Internal Medicine Endocrinology, Diabetes & Metabolism; Visit Provider Internal Medicine Endocrinology, Diabetes & Metabolism
DX: E11.69 Type 2 diabetes mellitus with other specified complication (principal)
CPT/HCPCS: 36415; 80053; 80061; 82043; 82570; 83036

== ENCOUNTER 2023-06-26 15:41 | Emergency (ER) | payer OTHER, SELFPAY ==
[2023-06-26] VITALS (24 sets, daily range): BP systolic 92–152; BP diastolic 52–88; PULSE 66–81; RESP 13–22; TEMP 36.8; O2SAT 92–98; BMI 29.5
--- NOTE | 2023-06-26 15:45 | DI.CT.S_ITS ---
PROCEDURE: CT HEAD/BRAIN WO CON INDICATIONS: altered mental status TECHNIQUE: Noncontrast 4.5 mm thick angled axial sections acquired from the foramen magnum to the vertex, with coronal and sagittal reformats. For radiation dose reduction, the following was used: automated exposure control, adjustment of mA and/or kV according to patient size. COMPARISON: [facility], CT, CT HEAD/BRAIN WO CON, 05/12/2023, 18:27. FINDINGS: Image quality: Excellent. CSF spaces: Basal cisterns are patent. No extra-axial fluid collections. Ventricles are normal in size and shape. Brain: No midline shift. No intracranial masses or hemorrhage. Ruelas-white matter interface is normal. Skull and face: Calvarium and visualized facial bones are intact, without suspicious lesions. Sinuses: Visualized sinuses and mastoids are clear. IMPRESSION: No acute intracranial abnormality. Dictated by: Hudson Go M.D. on 06/26/2023 at 16:06 Approved by: Hudson Go M.D. on 06/26/2023 at 16:07
[2023-06-26] MEDS: SODIUM CHLORIDE 0.9% 1,000 ML 125 ML IV (15:49)
[2023-06-26 15:57] LABS: Add Manual Diff / Slide Review NO; Basophils Absolute Auto 100 /uL (0-100); Basophils Percent Auto 0.3 % (0-2); Eosinophils Absolute Auto 0 /uL (0-450); Hematocrit 35.6 % (36-46); Hemoglobin 11.7 g/dL (12.0-16.0); Lymphocytes Absolute Auto 1200 /uL (1100-4500); Lymphocytes Percent Auto 6.2 % (25-40); Mean Corpuscular HGB Conc 32.9 % (30-36); Mean Corpuscular Hemoglobin 25.6 PG (26-34); Mean Corpuscular Volume 77.9 fL (80-100); Monocytes Absolute Auto 2200 /uL (0-900); Monocytes Percent Auto 11.3 % (3-14); Neutrophils Absolute Auto 15600 /uL (1500-7000); Neutrophils Percent Auto 82.2 % (50-75); Platelet Count 198 X10^3/uL (150-400); Red Blood Cell Count 4.57 X10^6/uL (4.0-5.2); Red Cell Distribution Width 16.1 % (11.6-14.8)
[2023-06-26 16:09] LABS: Acetaminophen < 10 ug/mL (10-30); Albumin 4.4 g/dL (3.5-5.0); Albumin Globulin Ratio 1.2 (1.0-2.8); Alkaline Phosphatase 657 U/L (38-126); Bilirubin Total 2.3 mg/dL (0.2-1.3); Blood Urea Nitrogen 29 mg/dL (7-17); Calcium 9.9 mg/dL (8.4-10.2); Carbon Dioxide 22 mmol/L (22-32); Chloride 92 mmol/L (98-107); Estimated Glomerular Filt Rate 44 mL/min (>60); Ethanol (ETOH) < 10 mg/dL; Globulin 3.7 g/dL (1.7-4.1); Glucose 156 mg/dL (70-100); HEMOLYSIS < 15 (0-50); Magnesium 2.5 mg/dL (1.6-2.3); Potassium 3.8 mmol/L (3.4-5.1); Salicylate < 1.0 mg/dL (<20); Sodium 129 mmol/L (137-145); Total Protein 8.1 g/dL (6.3-8.2)
--- NOTE | 2023-06-26 16:09 | ED.WEAKNESS ---
HPI - Weakness <Matti Ledesma DO - Last Filed: 06/27/23 09:29> General Chief complaint: Weakness Stated complaint: Lethargic Time Seen by Provider: 06/26/23 15:43 Source: EMS Mode of arrival: EMS History of Present Illness HPI Narrative: 57-year-old female with history of HERRING, IDDM, pancreatitis, bipolar presents from home by EMS due to a few days of increasing confusion and decreased alertness. She denies any fever or chills, no headache or trauma. No nausea or vomiting. She states that she is been taking her medications as directed. She was recently admitted here for hepatic encephalopathy with an initial ammonia over 100 and was treated with lactulose and eventually improved. She is guarding her way but a poor historian and somewhat confused Related Data Home Medications Medication Instructions Recorded Confirmed insulin aspart U-100 100 unit/mL 10 - 25 unit SQ TIDAC ##0 09/19/17 05/12/23 subcutaneous solution (Novolog U-100 Insulin aspart) metoprolol succinate 100 mg 100 mg PO DAILY ##0 09/19/17 05/12/23 tablet,extended release 24 hr (Toprol XL) omega-3 acid ethyl esters 1 gram 2 cap PO BID 04/17/19 05/12/23 capsule metformin 500 mg tablet,extended 1,000 mg PO QAM 01/06/20 05/12/23 release 24 hr cholecalciferol (vitamin D3) 50 50 mcg PO DAILY 11/28/20 05/12/23 mcg (2,000 unit) capsule insulin glargine 100 unit/mL 50 unit SUBCUT QAM #0 mL 11/28/20 05/12/23 subcutaneous solution (Lantus U-100 Insulin) ketamine 100 mg sublingual narinder 200 - 300 mg sublingual 5XD 11/28/20 05/12/23 lamotrigine 25 mg tablet 150 mg PO DAILY 11/28/20 05/12/23 tizanidine 2 mg tablet 4 mg PO DAILY 11/28/20 05/12/23 euzzkr-mnuunejx-qyungnj 3 cap PO TIDWM 09/09/21 05/12/23 36,000-114,000-180,000 unit capsule,delay rel (Creon) buprenorphine 2 mg-naloxone 0.5 mg 1.5 tab sublingual DAILY 07/16/22 05/12/23 sublingual tablet irbesartan 150 mg tablet 300 mg PO QAM 07/16/22 05/12/23 lorazepam 2 mg tablet 4 mg PO TID 07/16/22 05/12/23 oxybutynin chloride 5 mg 5 mg PO QPM 07/16/22 05/12/23 tablet,extended release 24 hr rosuvastatin 40 mg tablet 40 mg PO QAM 07/16/22 05/12/23 fluoxetine 20 mg capsule 60 mg PO QAM 05/12/23 05/12/23 pgdafr-qhivetfy-qumvzbr 3 cap PO TIDWM 05/12/23 05/12/23 36,000-114,000-180,000 unit capsule,delay rel (Creon) omeprazole 20 mg capsule,delayed See Rx Instructions .Route .COMPLEX 05/12/23 05/12/23 release ziprasidone HCl 80 mg capsule 80 mg PO BID 05/12/23 05/12/23 zolpidem 10 mg tablet 10 mg PO BEDTIME 05/12/23 05/12/23 Allergies Allergy/AdvReac Type Severity Reaction Status Date / Time No Known Drug Allergies Allergy Verified 06/26/23 15:46 Review of Systems <Matti Ledesma DO - Last Filed: 06/27/23 09:29> Review of Systems Narrative: GENERAL: See HPI HEENT: Denies sinus pain, ear pain, sore throat, difficulty swallowing, dizziness. RESPIRATORY: Denies dyspnea, cough, wheezing, hemoptysis, sputum. CARDIOVASCULAR: Denies chest pain, palpitations, orthopnea, edema, GASTROINTESTINAL: Denies nausea, vomiting, abdominal pain, diarrhea, constipation, melena. : Denies dysuria, frequency, incontinence, hematuria, urinary retention. MUSCULOSKELETAL: denies weakness, joint pain, or bony pain SKIN: Denies rash, skin lesions, or other NEUROLOGIC: See HPI PSYCHIATRIC: No concerning psychosocial issues. 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 Obesity (BMI 30-39.9) Herniated nucleus pulposus, L4-5 Arm pain Intractable vomiting with nausea Chronic pancreatitis Acute infection of right ear Fracture of right foot Bipolar 1 disorder Acute dehydration Acute kidney injury History of pulmonary embolism Neuropathy, diabetic Arthritis Insulin dependent diabetes mellitus Chronic pain syndrome Nonalcoholic steatohepatitis (HERRING) Anxiety Major depressive disorder Renal insufficiency Hypercholesterolemia with hypertriglyceridemia Hypertension Obstructive sleep apnea of adult Type 2 diabetes mellitus Snoring Hypersomnia Episode of syncope Surgical History H/O hysterectomy for benign disease History of cholecystectomy History of appendectomy Gastrocnemius equinus of right lower extremity Right humeral fracture Lumbar post-laminectomy syndrome Family History Father COPD (chronic obstructive pulmonary disease) Mother Hypertension Sister Fibromyalgia Social History marital status: details: to Arnie household members: spouse lives independently: Yes caregiver/support person: No occupational status: unemployed Smoking Status: Never smoker alcohol intake: never substance use type: marijuana Smoking Status: Never smoker alcohol intake frequency: holidays/special occasions only Substance Use Type: does not use Exam <Matti Ledesma, - Last Filed: 06/27/23 09:29> Narrative Exam Narrative: GENERAL: [57] year old patient appears stated age. Well-developed patient, in mild distress. HEAD: Atraumatic. Normocephalic. EYES: Pupils equal round and reactive. Extraocular motions intact. No scleral icterus. No injection or drainage. ENT: Nose without bleeding, purulent drainage. Throat without erythema, tonsillar hypertrophy or exudate. Airway patent. NECK: Trachea midline. Non tender CARDIOVASCULAR: Regular rate and rhythm without murmurs, gallops, or rubs. RESPIRATORY: Clear to auscultation. Breath sounds equal bilaterally. No wheezes, rales, or rhonchi. GASTROINTESTINAL: Abdomen soft, non-tender, nondistended. EXTREMITIES: No edema or joint tenderness. BACK: Nontender without deformity or crepitance. No flank tenderness. NEURO: AOx3. slow to respond, no focal findings SKIN: No rash or erythema of visible areas Initial Vital Signs Initial Vital Signs: Vital Signs Pulse Rate 78 06/26/23 15:39 Blood Pressure 96/62 06/26/23 15:39 Pulse Oximetry 92 1206/23 15:39 <Cortney Arreola MD - Last Filed: 06/27/23 02:00> Initial Vital Signs Initial Vital Signs: Vital Signs Pulse Rate 78 06/26/23 15:39 Blood Pressure 96/62 06/26/23 15:39 Pulse Oximetry 92 06/26/23 15:39 Course <Matti Ledesma DO - Last Filed: 06/27/23 09:29> Orders Ordered: Discontinued Medications Sodium Chloride (Normal Saline 0.9%) 1,000 mls @ 125 mls/hr IV CONT YARI Last Infusion: 06/26/23 23:27 Dose: Infused Documented By: Admin: 06/26/23 15:49 Dose: 125 mls/hr Documented By: MERI Sodium Chloride (Normal Saline 0.9%) 3,129.78 mls @ 1,043.26 mls/hr 30 ml/kg infuse over 3 hr (3129.78 ml) IV NOW ONE Stop: 06/26/23 19:08 Last Infusion: 06/26/23 19:26 Dose: Infused Documented By: Admin: 06/26/23 16:26 Dose: 1,043.26 mls/hr Documented By: MERI Ceftriaxone Sodium 2,000 mg/ (Sodium Chloride) 100 mls @ 200 mls/hr IV NOW ONE Stop: 06/26/23 16:11 Last Infusion: 06/26/23 16:56 Dose: Infused Documented By: Admin: 06/26/23 16:25 Dose: 200 mls/hr Documented By: MERI Lactulose (Lactulose 20 Gm/30 Ml Solution) 20 gm PO NOW ONE Stop: 06/26/23 16:39 Last Admin: 06/26/23 17:09 Dose: 20 gm Documented By: MERI Consultations Consultation #1: discussed with hospitalist (Julien) recommends transfer given concern for possible early hepatorenal. Patient sees GI at [facility] Vital Signs Vital signs: Vital Signs - 8 hr 06/27/23 01:30 06/27/23 01:30 06/27/23 02:00 Pulse Rate 79 87 Respiratory Rate 19 22 Blood Pressure 128/60 Pulse Oximetry 94 97 06/27/23 02:00 Pulse Rate Respiratory Rate Blood Pressure 200/96 H Pulse Oximetry <Cortney Arreola MD - Last Filed: 06/27/23 02:00> Orders Ordered: Discontinued Medications Sodium Chloride (Normal Saline 0.9%) 1,000 mls @ 125 mls/hr IV CONT YARI Last Infusion: 06/26/23 23:27 Dose: Infused Documented By: Admin: 06/26/23 15:49 Dose: 125 mls/hr Documented By: MERI Sodium Chloride (Normal Saline 0.9%) 3,129.78 mls @ 1,043.26 mls/hr 30 ml/kg infuse over 3 hr (3129.78 ml) IV NOW ONE Stop: 06/26/23 19:08 Last Infusion: 06/26/23 19:26 Dose: Infused Documented By: Admin: 06/26/23 16:26 Dose: 1,043.26 mls/hr Documented By: MERI Ceftriaxone Sodium 2,000 mg/ (Sodium Chloride) 100 mls @ 200 mls/hr IV NOW ONE Stop: 06/26/23 16:11 Last Infusion: 06/26/23 16:56 Dose: Infused Documented By: Admin: 06/26/23 16:25 Dose: 200 mls/hr Documented By: MERI Lactulose (Lactulose 20 Gm/30 Ml Solution) 20 gm PO NOW ONE Stop: 06/26/23 16:39 Last Admin: 06/26/23 17:09 Dose: 20 gm Documented By: MERI Consultations Additional Consultation(s): Discussed patient's case with her lozenge dough mixer at [facility]. She agrees that patient should be transferred for high-level of care. Patient is alert and oriented, however quite somnolent. There is leukocytosis present, uncertain significance. Abdomen is soft and nontender, CT of the abdomen and pelvis shows no ascites. Patient was accepted for transfer at [facility]. Vital Signs Vital signs: Vital Signs - 8 hr 06/27/23 01:30 06/27/23 01:30 06/27/23 02:00 Pulse Rate 79 87 Respiratory Rate 19 22 Blood Pressure 128/60 Pulse Oximetry 94 97 06/27/23 02:00 Pulse Rate Respiratory Rate Blood Pressure 200/96 H Pulse Oximetry MDM - Weakness <Matti Ledesma DO - Last Filed: 06/27/23 09:29> Lab Data 06/26/23 15:52 06/26/23 15:52 Labs: Lab Results 06/26/23 06/26/23 06/26/23 Range/Units 15:52 16:05 17:28 WBC 19.0 H (4.5-11.0) X10^3/uL RBC 4.57 (4.0-5.2) X10^6/uL Hgb 11.7 L (12.0-16.0) g/dL Hct 35.6 L (36-46) % MCV 77.9 L (80-100) fL MCH 25.6 L (26-34) PG MCHC 32.9 (30-36) % RDW 16.1 H (11.6-14.8) % Plt Count 198 (150-400) X10^3/uL Neut % (Auto) 82.2 H (50-75) % Lymph % (Auto) 6.2 L (25-40) % Rhea % (Auto) 11.3 (3-14) % Eos % (Auto) 0.0 L (2-4) % Baso % (Auto) 0.3 (0-2) % Neut # (Auto) 11619 H (9852-6021) /uL Lymph # (Auto) 1200 (9852-4389) /uL Rhea # (Auto) 2200 H (0-900) /uL Eos # (Auto) 0 (0-450) /uL Baso # (Auto) 100 (0-100) /uL PT 14.8 H (9.4-12.5) SECONDS INR 1.3 (0.9-1.3) Sodium 129 L (137-145) mmol/L Potassium 3.8 (3.4-5.1) mmol/L Chloride 92 L (98-107) mmol/L Carbon Dioxide 22 (22-32) mmol/L BUN 29 H (7-17) mg/dL Creatinine 1.38 H (0.52-1.04) mg/dL Estimated GFR 44 L (>60) mL/min BUN/Creatinine Ratio 21.0 (6-22) Glucose 156 H D (70-100) mg/dL Calcium 9.9 (8.4-10.2) mg/dL Magnesium 2.5 H (1.6-2.3) mg/dL Total Bilirubin 2.3 H (0.2-1.3) mg/dL AST 759 H (14-36) IU/L ALT 888 H (<35) IU/L Alkaline Phosphatase 657 H (38-126) U/L Ammonia 55 H (9-30) umol/L Total Protein 8.1 (6.3-8.2) g/dL Albumin 4.4 (3.5-5.0) g/dL Globulin 3.7 (1.7-4.1) g/dL Albumin/Globulin Ratio 1.2 (1.0-2.8) Urine Color Yellow Urine Appearance Sl cloudy Urine pH 6.5 (4.5-8.0) Ur Specific [place] 1.015 (1.000-1.035) Urine Protein 3+ H (Negative) Urine Glucose (UA) Negative (Negative) g/dL Urine Ketones Trace H (NEGATIVE) Urine Occult Blood 3+ H (Negative) Urine Nitrate Negative (Negative) Urine Bilirubin 1+ H (NEGATIVE) Ur Bilirubin Confirm TNP Urine Urobilinogen 2.0 H (0.2) E.U./dL Ur Leukocyte Esterase Trace H (NEGATIVE) Urine RBC 1-5/hpf (0-5/HPF) Urine WBC 0-1/hpf (0-5/HPF) Ur Squamous Epith Cells 1-5 /hpf (0-5/HPF) Urine Bacteria Occasional (0-1) (None) Urine Yeast 5-10/hpf H (None) Ur Culture Indicated? Specimen cultured Salicylates < 1.0 (<20) mg/dL U Opiates 300ng/mL cut Negative (Negative) Ur Oxycodone Screen Negative (Negative) Urine Methadone Screen Negative (Negative) Acetaminophen < 10 (10-30) ug/mL Ur Barbiturates Screen Negative (Negative) U Tricyclic Antidepress Negative (Negative) Ur Phencyclidine Scrn Negative (Negative) Ur Amphetamines Screen Negative (Negative) U Methamphetamines Scrn Negative (Negative) Ur MDMA Scrn (Ecstasy) Negative (Negative) U Benzodiazepines Scrn Positive H (Negative) Urine Cocaine Screen Negative (Negative) U Marijuana (THC) Screen Negative (Negative) Ethyl Alcohol < 10 ( - 10) mg/dL <Cortney Arreola MD - Last Filed: 06/27/23 02:00> Lab Data Labs: Lab Results 06/26/23 06/26/23 06/26/23 Range/Units 15:52 16:05 17:28 WBC 19.0 H (4.5-11.0) X10^3/uL RBC 4.57 (4.0-5.2) X10^6/uL Hgb 11.7 L (12.0-16.0) g/dL Hct 35.6 L (36-46) % MCV 77.9 L (80-100) fL MCH 25.6 L (26-34) PG MCHC 32.9 (30-36) % RDW 16.1 H (11.6-14.8) % Plt Count 198 (150-400) X10^3/uL Neut % (Auto) 82.2 H (50-75) % Lymph % (Auto) 6.2 L (25-40) % Rhea % (Auto) 11.3 (3-14) % Eos % (Auto) 0.0 L (2-4) % Baso % (Auto) 0.3 (0-2) % Neut # (Auto) 04318 H (3630-6357) /uL Lymph # (Auto) 1200 (7370-6611) /uL Rhea # (Auto) 2200 H (0-900) /uL Eos # (Auto) 0 (0-450) /uL Baso # (Auto) 100 (0-100) /uL PT 14.8 H (9.4-12.5) SECONDS INR 1.3 (0.9-1.3) Sodium 129 L (137-145) mmol/L Potassium 3.8 (3.4-5.1) mmol/L Chloride 92 L (98-107) mmol/L Carbon Dioxide 22 (22-32) mmol/L BUN 29 H (7-17) mg/dL Creatinine 1.38 H (0.52-1.04) mg/dL Estimated GFR 44 L (>60) mL/min BUN/Creatinine Ratio 21.0 (6-22) Glucose 156 H D (70-100) mg/dL Calcium 9.9 (8.4-10.2) mg/dL Magnesium 2.5 H (1.6-2.3) mg/dL Total Bilirubin 2.3 H (0.2-1.3) mg/dL AST 759 H (14-36) IU/L ALT 888 H (<35) IU/L Alkaline Phosphatase 657 H (38-126) U/L Ammonia 55 H (9-30) umol/L Total Protein 8.1 (6.3-8.2) g/dL Albumin 4.4 (3.5-5.0) g/dL Globulin 3.7 (1.7-4.1) g/dL Albumin/Globulin Ratio 1.2 (1.0-2.8) Urine Color Yellow Urine Appearance Sl cloudy Urine pH 6.5 (4.5-8.0) Ur Specific [place] 1.015 (1.000-1.035) Urine Protein 3+ H (Negative) Urine Glucose (UA) Negative (Negative) g/dL Urine Ketones Trace H (NEGATIVE) Urine Occult Blood 3+ H (Negative) Urine Nitrate Negative (Negative) Urine Bilirubin 1+ H (NEGATIVE) Ur Bilirubin Confirm TNP Urine Urobilinogen 2.0 H (0.2) E.U./dL Ur Leukocyte Esterase Trace H (NEGATIVE) Urine RBC 1-5/hpf (0-5/HPF) Urine WBC 0-1/hpf (0-5/HPF) Ur Squamous Epith Cells 1-5 /hpf (0-5/HPF) Urine Bacteria Occasional (0-1) (None) Urine Yeast 5-10/hpf H (None) Ur Culture Indicated? Specimen cultured Salicylates < 1.0 (<20) mg/dL U Opiates 300ng/mL cut Negative (Negative) Ur Oxycodone Screen Negative (Negative) Urine Methadone Screen Negative (Negative) Acetaminophen < 10 (10-30) ug/mL Ur Barbiturates Screen Negative (Negative) U Tricyclic Antidepress Negative (Negative) Ur Phencyclidine Scrn Negative (Negative) Ur Amphetamines Screen Negative (Negative) U Methamphetamines Scrn Negative (Negative) Ur MDMA Scrn (Ecstasy) Negative (Negative) U Benzodiazepines Scrn Positive H (Negative) Urine Cocaine Screen Negative (Negative) U Marijuana (THC) Screen Negative (Negative) Ethyl Alcohol < 10 ( - 10) mg/dL MDM Narrative Medical decision making narrative: [Maxwell} - Care of patient is signed out to me by Dr. Ledesma at 1830 patient reassessed, sleeping deeply in bed but able to be woken by light touch. She is currently alert and oriented, but very somnolent. She states that she was brought in for extreme fatigue and generalized weakness. Denies pain or other complaints. Laboratory work shows WBC 19, uncertain significance. Hemoglobin at baseline, 11.7. Platelet count 198, INR 1.3, sodium 129, creatinine 1.38 (previous 1.08 and 0.65), liver enzymes as follows: T bili 2.3, AST 759, ALT 888, Alk Phos 657, roughly similar to previous. Ammonia 55. Patient has been given lactulose. After discussion with hospitalist service and concern for hepatorenal syndrome it was determined that patient would be best served at a center with GI. Pending call to [facility]. Discharge Plan Departure Patient Disposition: [facility] Clinical Impression: Nonalcoholic steatohepatitis (HERRING), Acute hepatic encephalopathy, Elevated liver enzymes, Creatinine elevation Prescriptions: No Action metoprolol succinate [Toprol XL] 100 MG tablet extended release 24 hr 100 mg PO DAILY Qty: 0 Rx Instructions: 8am insulin aspart U-100 [Novolog U-100 Insulin aspart] 100 UNIT/1 ML solution 10 - 25 unit SQ TIDAC Qty: 0 Rx Instructions: sliding scale Lantus U-100 Insulin 100 unit/mL solution 50 unit SUBCUT QAM Qty: 0 ketamine 100 mg narinder 200 - 300 mg sublingual 5XD MDD 16 capsules Rx Instructions: uses rectally tizanidine 2 mg tablet 4 mg PO DAILY Rx Instructions: 1929 cholecalciferol (vitamin D3) 50 mcg (2,000 unit) capsule 50 mcg PO DAILY lamotrigine 25 mg tablet 150 mg PO DAILY Rx Instructions: 8am omega-3 acid ethyl esters 1 gram Capsule 2 cap PO BID Rx Instructions: 8am, 5pm Creon 36,000-114,000- 180,000 unit capsule,delayed release(DR/EC) 3 cap PO TIDWM Rx Instructions: 2 capsules by mouth with breakfast, 3 capsules with lunch and 2 capsules with dinner and 1 capsule with snacks buprenorphine-naloxone 2-0.5 mg tablet, sublingual 1.5 tab SUBLINGUAL DAILY oxybutynin chloride 5 mg tablet extended release 24hr 5 mg PO QPM Rx Instructions: 5pm irbesartan 150 mg tablet 300 mg PO QAM Rx Instructions: 8am rosuvastatin 40 mg tablet 40 mg PO QAM lorazepam 2 MG tablet 4 mg PO TID Rx Instructions: 7am, 12pm, 5pm metformin 500 mg tablet extended release 24 hr 1,000 mg PO QAM ziprasidone HCl 80 mg capsule 80 mg PO BID omeprazole 20 mg capsule,delayed release(DR/EC) See Rx Instructions .ROUTE .COMPLEX Rx Instructions: 20 mg orally, every other day fluoxetine 20 mg capsule 60 mg PO QAM zolpidem 10 mg Tablet 10 mg PO BEDTIME Rx Instructions: 1930 Creon 36,000-114,000- 180,000 unit capsule,delayed release(DR/EC) 3 cap PO TIDWM Referrals: Helen Smith MD [Primary Care Provider] -
[2023-06-26 16:17] LABS: Alanine Aminotransferase 888 IU/L (<35); Aspartate Aminotransferase 759 IU/L (14-36)
[2023-06-26 16:23] LABS: INR 1.3 (0.9-1.3); Prothrombin Time 14.8 SECONDS (9.4-12.5)
[2023-06-26] MEDS: cefTRIAXone 2,000 MG in SODIUM CHLORIDE 0.9% 100 ML 200 MG IV (16:25)
[2023-06-26] MEDS: SODIUM CHLORIDE 0.9% 3,129.78 ML 1043.26 ML IV (16:26)
[2023-06-26 16:31] LABS: Ammonia (NH3) 55 umol/L (9-30)
--- NOTE | 2023-06-26 16:38 | DI.CT.S_ITS ---
PROCEDURE: CT CHEST ABD PEL W CON INDICATIONS: septic, altered, acute liver failure TECHNIQUE: After the administration of oral and intravenous contrast, axial sections acquired from the supraclavicular neck to the pubic symphysis. Coronal and sagittal reformats were performed. For radiation dose reduction, the following was used: automated exposure control, adjustment of mA and/or kV according to patient size. COMPARISON: [facility], MR, MR ABDOMEN LIVER PROTOCOL, 01/18/2023, 9:15. [facility], CT, CT ABDOMEN PELVIS W CON, 02/22/2022, 17:23. FINDINGS: Image quality: Good. Bolus timing is somewhat delayed. CHEST: Lower Neck: No enlarged lymph nodes. Thyroid: Within normal limits. Axillae: No enlarged lymph nodes. Chest Wall: Unremarkable. Lungs and Airways: Dependent atelectasis. No consolidation or suspicious nodules. Airways are clear. Pleura: No pneumothorax or pleural effusions. Heart: Heart size is normal. Mild coronary artery calcifications. No pericardial effusion. Thoracic Vessels: The aorta and pulmonary arteries demonstrate normal size. Mediastinum and Naheed: No enlarged lymph nodes. Esophagus: No wall thickening. No hiatal hernia. ABDOMEN: Liver: Heterogeneous nodular areas in the liver. These are ill-defined on this exam and less conspicuous compared to the prior MRI. Liver surface appears nodular. Gallbladder: Absent. Biliary ducts: There is mild intrahepatic biliary ductal dilatation. Pancreas: Atrophic. Scattered calcifications. No fluid collection. Spleen: Splenomegaly. Spleen measures 15.5 cm. Adrenal Glands: No adrenal nodules. Kidneys and Ureters: No hydronephrosis. No solid mass. No complex renal cystic lesion which requires follow up. Stomach and Bowel: No small bowel obstruction. The appendix is not identified. Somewhat prominent stool in the colon. Peritoneum: No abnormal intraperitoneal fluid. No free air. Ventral Wall: No hernia. Small foci of subcutaneous gas which could be due to subcutaneous injections. Abdominal Nodes: No retroperitoneal or mesenteric adenopathy by size criteria. Shotty retroperitoneal lymph nodes. Vessels: Aorta and inferior vena cava are normal in size. Upper abdominal varices. No filling defect in the portal vein. PELVIS: Pelvic Organs: Unremarkable. Bladder: No stone. Pelvic Nodes: No enlarged lymph nodes. Miscellaneous: No inguinal hernias are seen. Bones: No suspicious osseous lesion. Multilevel DDD. IMPRESSION: 1. Mild dependent atelectasis. No consolidation. No pleural effusion. 2. Cirrhotic liver morphology. Heterogeneous area of hypodensity in the right liver. This is not well evaluated on this single phase exam. 3. Splenomegaly. No ascites. 4. No small bowel obstruction. Dictated by: Carlitos Kilgore M.D. on 06/26/2023 at 17:34 Approved by: Carlitos Kilgore M.D. on 06/26/2023 at 17:47
[2023-06-26] MEDS: LACTULOSE 20 GM/30 ML SOLUTION PO (17:09)
[2023-06-26 17:42] LABS: Bilirubin Urine UA 1+ (NEGATIVE); Color Urine UA YELLOW; Glucose Urine UA NEGATIVE (Negative); Ketones Urine UA TRACE (NEGATIVE); Leukocyte Esterase Urine UA TRACE (NEGATIVE); Nitrite Urine UA NEGATIVE (Negative); Occult Blood Urine UA 3+ (Negative); Protein Urine UA 3+ (Negative); Specific Gravity Urine UA 1.015 (1.000-1.035); pH Urine UA 6.5 (4.5-8.0)
[2023-06-26 17:43] LABS: Appearance Urine UA SL CLOUDY
[2023-06-26 17:49] LABS: Bacteria Urine Occasional (0-1); RBC Urine 1-5/HPF (0-5/HPF); Squamous Epithelial Cell Urine 1-5 /HPF (0-5/HPF); WBC Urine 0-1/HPF (0-5/HPF)
[2023-06-26 17:50] LABS: Culture Indicated Urine Specimen Cultured; UR Morphine/Opiate cutoff 300 Negative (Negative); Urine Amphetamines Negative (Negative); Urine Barbiturates Negative (Negative); Urine Benzodiazepines Positive (Negative); Urine Cocaine Negative (Negative); Urine MDMA Negative (Negative); Urine Methadone Negative (Negative); Urine Methamphetamines Negative (Negative); Urine Oxycodone Negative (Negative); Urine Phencyclidine Negative (Negative); Urine Tetrahydrocannabinol Negative (Negative); Urine Tricyclic Antidepressant Negative (Negative)
[2023-06-27] VITALS (7 sets, daily range): BP systolic 110–200; BP diastolic 55–124; PULSE 73–87; RESP 16–24; O2SAT 93–97
--- NOTE | 2023-06-27 03:02 | PC.NURSE ---
I called her spouse Arnie at [phone] and left message letting him now his was being transferred to [facility].
== END 2023-06-27 02:15 | disposition short-term general hospital (02) ==
PROVIDERS: Emergency Provider Emergency Medicine; Family Provider Internal Medicine; PCP Internal Medicine
DX: K75.81 Nonalcoholic steatohepatitis (NASH) (principal); K76.82 Hepatic encephalopathy; R74.8 Abnormal levels of other serum enzymes; R94.4 Abnormal results of kidney function studies; E11.9 Type 2 diabetes mellitus without complications; Z79.4 Long term (current) use of insulin
CPT/HCPCS: 70450; 71260; 74177; 80053; 80305; 80320; 80329; 81001; 82140; 83735; 85025; 85610; 87040; 87086; 96361; 96374; 99284; G0480; J0696

== ENCOUNTER → 2023-10-07 14:26 | Outpatient (CLI) | payer OTHER, SELFPAY ==
--- NOTE | 2023-10-07 14:28 | DI.MG.S_ITS ---
BILATERAL DIGITAL SCREENING MAMMOGRAM 3D/2D WITH CAD: 10/07/2023 CLINICAL: Routine screening. Comparison is made to exams dated: 05/30/2019 mammogram - [facility] and 09/16/2014 mammogram - [facility]. There are scattered areas of fibroglandular density in both breasts (category b / 25%-50% glandular tissue). Current study was also evaluated with a Computer Aided Detection (CAD) system. No significant masses, calcifications, or other findings are seen in either breast. There has been no significant interval change. IMPRESSION: NEGATIVE There is no mammographic evidence of malignancy. A 1 year screening mammogram is recommended. Based on the Tyrer Cuzick model (a risk assessment model) the patient's lifetime risk is 4.4% and her 10 year risk is 1.8%. According to the ACR, ACS, and NCCN guidelines, an annual breast MRI exam along with mammogram is recommended if the patient's lifetime risk is 20% or greater. This exam was interpreted at Station ID: [id number]. NOTE: For mammograms, a report in lay terms will be sent to the patient. Approximately 15% of breast malignancies will not be visualized mammographically. In the management of a palpable breast mass, a negative mammogram must not discourage biopsy of a clinically suspicious lesion. Electronically Signed By: Carlitos [email or web address]:10/07/2023 16:35:10 letter sent: Normal Exam ACR BI-RADS Category 1: Negative [id number]
== END ==
PROVIDERS: Family Provider Internal Medicine; PCP Internal Medicine; Referring Provider Internal Medicine; Visit Provider Internal Medicine
DX: Z12.31 Encounter for screening mammogram for malignant neoplasm of breast (principal); R92.323 Mammographic fibroglandular density, bilateral breasts
CPT/HCPCS: 77063; 77067

== ENCOUNTER → 2024-03-13 10:03 | Outpatient (CLI) | payer OTHER, SELFPAY | PROVIDERS: Family Provider Internal Medicine; PCP Internal Medicine; Referring Provider Nurse Practitioner Family; Visit Provider Nurse Practitioner Family | DX: L02.92 Furuncle, unspecified (principal) | CPT/HCPCS: 87070; 87077; 87205 ==

== ENCOUNTER → 2024-04-10 17:20 | Outpatient (CLI) | payer OTHER, SELFPAY ==
[2024-04-10 18:55] LABS: Creatinine Urine Random 102.53 mg/dL
[2024-04-10 19:01] LABS: Microalbumin Urine Random 2.8 mg/dL (0-1.6)
== END ==
LOC: LAB 17:21
PROVIDERS: Family Provider Internal Medicine; PCP Internal Medicine; Referring Provider Internal Medicine Endocrinology, Diabetes & Metabolism; Visit Provider Internal Medicine Endocrinology, Diabetes & Metabolism
DX: E11.29 Type 2 diabetes mellitus with other diabetic kidney complication (principal); R80.9 Proteinuria, unspecified; Z79.4 Long term (current) use of insulin
CPT/HCPCS: 82043; 82570

== ENCOUNTER 2024-05-31 17:00 | Inpatient (IN) | payer OTHER, SELFPAY ==
[2024-05-31] VITALS (64 sets, daily range): BP systolic 75–143; BP diastolic 50–84; PULSE 54–68; RESP 10–22; TEMP 35.6–36.6; O2SAT 92–98; BMI 27.6; BMI 28.4
--- NOTE | 2024-05-31 17:29 | ED.WEAKNESS ---
HPI - Weakness <Emily Drew, DO - Last Filed: 06/09/24 00:51> General Chief complaint: Weakness Stated complaint: Weakness Time Seen by Provider: 05/31/24 17:29 Source: EMS Mode of arrival: EMS History of Present Illness HPI Narrative: Patient is a 58-year-old female history of insulin-dependent diabetes chronic pancreatitis, HERRING, bipolar disorder hypertension presenting today with altered mental status by EMS. is at bedside in his primary historian. He reports that for the last 2 days she was woken up confused in the morning but better by the afternoon. However today she has not really come around. She is able to answer questions and follow some commands but profusely week. Blood pressure is now in the 80s. Desires any fever chills, chest pain or abdominal pain. Has been reports that she was able to get herself out of bed this morning but has had hard time walking. She was admitted here 1 year ago with hepatic encephalopathy and an elevated ammonia level. Both and patient stated that she has been taking her medications. Patient is a full code Related Data Home Medications Medication Instructions Recorded Confirmed insulin aspart U-100 100 unit/mL 10 - 25 unit SQ TIDAC ##0 09/19/17 06/01/24 subcutaneous solution (Novolog U-100 Insulin aspart) metoprolol succinate 100 mg 100 mg PO DAILY ##0 09/19/17 06/01/24 tablet,extended release 24 hr (Toprol XL) omega-3 acid ethyl esters 1 gram 2 cap PO BID 04/17/19 06/01/24 capsule metformin 500 mg tablet,extended 1,000 mg PO BID 01/06/20 06/01/24 release 24 hr cholecalciferol (vitamin D3) 50 50 mcg PO DAILY 11/28/20 06/01/24 mcg (2,000 unit) capsule insulin glargine 100 unit/mL 50 unit SUBCUT QAM #0 mL 11/28/20 06/01/24 subcutaneous solution (Lantus U-100 Insulin) ketamine 100 mg sublingual narinder 200 - 300 mg sublingual 5XD 11/28/20 06/01/24 tizanidine 2 mg tablet 4 mg PO DAILY 11/28/20 06/01/24 buprenorphine 2 mg-naloxone 0.5 mg 1.5 tab sublingual DAILY 07/16/22 06/01/24 sublingual tablet lorazepam 2 mg tablet 4 mg PO TID 07/16/22 06/01/24 oxybutynin chloride 5 mg 5 mg PO QPM 07/16/22 06/01/24 tablet,extended release 24 hr rosuvastatin 40 mg tablet 40 mg PO QAM 07/16/22 06/01/24 fluoxetine 20 mg capsule 40 mg PO BID 05/12/23 06/01/24 pxapco-iepbtszp-eytlqcl 3 cap PO TIDWM 05/12/23 06/01/24 36,000-114,000-180,000 unit capsule,delay rel (Creon) ziprasidone HCl 80 mg capsule 80 mg PO BID 05/12/23 06/01/24 zolpidem 10 mg tablet 10 mg PO BEDTIME 05/12/23 06/01/24 estradiol 0.01% (0.1 mg/gram) 1 applic vaginal WEEKLY 03/13/24 06/01/24 vaginal cream irbesartan 300 mg tablet 300 mg PO DAILY 03/13/24 06/01/24 lactulose 10 gram/15 mL oral 60 ml PO TID 03/13/24 06/01/24 solution lamotrigine 150 mg tablet 150 mg PO DAILY 03/13/24 06/01/24 methylphenidate HCl 5 mg tablet 30 mg PO DAILY 03/13/24 06/01/24 methylphenidate HCl 5 mg tablet 20 mg PO PRN PRN ADHD 06/01/24 06/01/24 Previous Rx's Medication Instructions Recorded cephalexin 500 mg capsule 500 mg PO QID #20 caps 06/01/24 Allergies Allergy/AdvReac Type Severity Reaction Status Date / Time No Known Drug Allergies Allergy Verified 03/13/24 09:52 Patient History <Emily Russell DO - Last Filed: 06/09/24 00:51> Medical History Incontinence of urine GERD (gastroesophageal reflux disease) Benzodiazepine dependence, continuous Opiate dependence, continuous 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 Obesity (BMI 30-39.9) Herniated nucleus pulposus, L4-5 Arm pain Intractable vomiting with nausea Chronic pancreatitis Acute infection of right ear Fracture of right foot Bipolar 1 disorder Acute dehydration Acute kidney injury History of pulmonary embolism Neuropathy, diabetic Arthritis Insulin dependent diabetes mellitus Chronic pain syndrome Nonalcoholic steatohepatitis (HERRING) Anxiety Major depressive disorder Renal insufficiency Hypercholesterolemia with hypertriglyceridemia Hypertension Obstructive sleep apnea of adult Type 2 diabetes mellitus Snoring Hypersomnia Episode of syncope Surgical History H/O hysterectomy for benign disease History of cholecystectomy History of appendectomy Gastrocnemius equinus of right lower extremity Right humeral fracture Lumbar post-laminectomy syndrome Family History Father COPD (chronic obstructive pulmonary disease) Mother Hypertension Sister Fibromyalgia Social History marital status: details: to Arnie household members: spouse and children lives independently: Yes caregiver/support person: No occupational status: unemployed Smoking Status: Never smoker alcohol intake: never substance use type: marijuana Smoking Status: Never smoker alcohol intake frequency: holidays/special occasions only Substance Use Type: does not use Exam <Emily Russell, DO - Last Filed: 06/09/24 00:51> Initial Vital Signs Initial Vital Signs: Vital Signs Pulse Rate 63 05/31/24 17:04 Pulse Oximetry 95 05/31/24 17:04 GENERAL: Alert weak 58-year-old female HEENT: Head atraumatic,EOMI, pupils reactive, right eye lid is close she is able to open it has been reports that she has a lazy right eye since childhood that is not new face symmetric, [moist] mucous membranes CARDIOVASCULAR: Regular rate and rhythm without murmurs, rubs or gallops. RESPIRATORY: Breath sounds equal bilaterally, no wheezes rales or rhonchi. ABDOMEN: Soft, nontender. Normoactive bowel sounds all 4 quadrants. No guarding or rebound. EXTREMITIES: Normal range of motion, no clubbing or edema. Neurovascularly intact NEUROLOGICAL: Alert and oriented x4. 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 <Kings Eden, DO - Last Filed: 05/31/24 21:29> Initial Vital Signs Initial Vital Signs: Vital Signs Pulse Rate 63 05/31/24 17:04 Pulse Oximetry 95 05/31/24 17:04 Procedures <Kings Eden, DO - Last Filed: 05/31/24 21:29> Central Line Placement Left IJ: Time of procedure: 20:15 Time Out Performed: Yes Patient Placed on Monitor/Pulse Ox: Yes MD Prep: mask, gown and gloves Central Line Prep: Povidone-Iodine 1% Local Anesthetic: lidocaine 1% Amount of anesthesia used (mL): 5 Ultrasound Used for Placement: Yes Central Line Lumen Inserted: triple Post Procedure: sutured in place, good blood return, all ports aspirated, flushed, capped, sterile dressing applied and line stabilization device Post Procedure X-Ray: tip of catheter in good position and no pneumothorax seen Patient Tolerated Procedure: Well Complications: none Scores <Emily Russell, DO - Last Filed: 06/09/24 00:51> GCS [place] coma scale eye opening: Spontaneous [place] coma scale verbal response: Orientated [place] coma scale motor response: Obey commands [place] coma scale total score: 15 <Kings Eden, DO - Last Filed: 05/31/24 21:29> GCS [place] coma scale total score: 15 Course <Emily Russell, DO - Last Filed: 06/09/24 00:51> Orders Ordered: Discontinued Medications Heparin Sodium (Porcine) (Heparin 5,000 Unit/Ml Vial) 5,000 unit SUBCUT BID [facility] Last Admin: 06/01/24 08:47 Dose: 5,000 unit Documented By: BELEM Piperacillin Sod/Tazobactam (Sod 4.5 gm/ Sodium Chloride) 100 mls @ 200 mls/hr IV NOW ONE Stop: 05/31/24 17:43 Last Infusion: 05/31/24 19:05 Dose: Infused Documented By: Admin: 05/31/24 17:54 Dose: 200 mls/hr Documented By: ELISE Sodium Chloride (Normal Saline 0.9%) 2,331 mls @ 777 mls/hr 30 ml/kg infuse over 3 hr (2331 ml) IV NOW ONE Stop: 05/31/24 20:42 Last Infusion: 05/31/24 20:37 Dose: Infused Documented By: Admin: 05/31/24 17:45 Dose: 777 mls/hr Documented By: NOREPINEPHRINE BITARTRATE/D5W (Levophed) 4 mg in 250 mls @ 36.571 mls/hr IV TITRATE [facility]; Protocol Last Titration: 05/31/24 22:31 Dose: 0.04 mcg/kg/min, 14.628 mls/hr Documented By: Titration: 05/31/24 20:44 Dose: 0.05 mcg/kg/min, 18.285 mls/hr Documented By: Titration: 05/31/24 19:38 Dose: 0.075 mcg/kg/min, 27.428 mls/hr Documented By: Admin: 05/31/24 19:16 Dose: 0.1 mcg/kg/min, 36.571 mls/hr Documented By: ELISE Sodium Chloride (Normal Saline 0.9%) 1,000 mls @ 100 mls/hr IV CONT [facility] Last Admin: 06/01/24 10:39 Dose: 100 mls/hr Documented By: Infusion: 06/01/24 10:39 Dose: Infused Documented By: Admin: 06/01/24 00:47 Dose: 100 mls/hr Documented By: MARCIA Dextrose (D10w) 100 mls @ 999 mls/hr IV PRN PRN PRN Reason: Hypoglycemia Insulin Glargine (Insulin Glargine 100 Unit/Ml 3ml Pen) 40 unit SUBCUT NOW ONE Stop: 06/01/24 09:00 Last Admin: 06/01/24 09:18 Dose: 40 unit Documented By: BELEM Co-signed By: Insulin Glargine (Insulin Glargine 100 Unit/Ml 3ml Pen) 40 unit SUBCUT DAILY [facility] Insulin Human Lispro (Insulin Lispro 100 Unit/Ml 3ml Vial) 0 unit SUBCUT ACHS [facility]; Protocol Last Admin: 06/01/24 12:17 Dose: 4 unit Documented By: BELEM Co-signed By: KETTY Lactulose (Lactulose 20 Gm/30 Ml Solution) 30 gm PO NOW ONE Stop: 05/31/24 23:24 Last Admin: 06/01/24 00:48 Dose: 30 gm Documented By: MARCIA Lactulose (Lactulose 20 Gm/30 Ml Solution) 20 gm PO TID [facility] Last Admin: 06/01/24 08:46 Dose: 20 gm Documented By: BELEM Metformin HCl (Metformin Xr 500 Mg Tablet) 1,000 mg PO DAILY [facility] Last Admin: 06/01/24 08:47 Dose: 1,000 mg Documented By: BELEM Naloxone HCl (Naloxone 0.4 Mg/Ml Vial) 0.2 mg IV Q2MIN PRN PRN Reason: Opiate Reversal Lipase-Protease- Amylase [Creon] 36/114/180 Unit Cap 3 cap PO TIDWM [facility] Last Admin: 06/01/24 12:20 Dose: 3 cap Documented By: Admin: 06/01/24 09:18 Dose: 3 cap Documented By: BELEM Buprenorphine- Naloxone 2-0.5 Mg Sl Film 1.5 tab SL DAILY [facility] Last Admin: 06/01/24 09:18 Dose: 1.5 tab Documented By: BELEM Ziprasidone Hcl 80 (Mg Capsule) 80 mg PO BID [facility] Last Admin: 06/01/24 09:19 Dose: Not Given Documented By: BELEM Pantoprazole Sodium (Pantoprazole 40 Mg Vial) 40 mg IV DAILY [facility] Last Admin: 06/01/24 08:47 Dose: 40 mg Documented By: Admin: 05/31/24 22:36 Dose: 40 mg Documented By: [facility] Vital Signs Vital signs: Vital Signs - 8 hr 05/31/24 17:04 05/31/24 17:06 05/31/24 17:30 Temperature 97.5 F L Pulse Rate 63 64 59 L Respiratory Rate 14 Blood Pressure 98/65 Pulse Oximetry 95 95 93 Oxygen Delivery Method Room Air 05/31/24 17:30 05/31/24 17:32 05/31/24 17:32 Temperature Pulse Rate 60 Respiratory Rate Blood Pressure 82/51 L 84/53 L Pulse Oximetry 93 Oxygen Delivery Method 05/31/24 17:36 05/31/24 17:36 05/31/24 17:45 Temperature Pulse Rate 60 60 Respiratory Rate 11 L 15 Blood Pressure 89/56 L Pulse Oximetry 93 93 Oxygen Delivery Method 05/31/24 17:45 05/31/24 17:59 05/31/24 17:59 Temperature Pulse Rate 57 L Respiratory Rate 10 L Blood Pressure 94/59 L 89/53 L Pulse Oximetry 93 Oxygen Delivery Method 05/31/24 18:00 05/31/24 18:00 05/31/24 18:05 Temperature Pulse Rate 58 L 57 L Respiratory Rate 11 L 10 L Blood Pressure 87/52 L Pulse Oximetry 93 92 Oxygen Delivery Method 05/31/24 18:05 05/31/24 18:10 05/31/24 18:10 Temperature Pulse Rate 55 L Respiratory Rate 11 L Blood Pressure 82/54 L 75/51 L Pulse Oximetry 93 Oxygen Delivery Method 05/31/24 18:15 05/31/24 18:15 05/31/24 18:20 Temperature Pulse Rate 57 L 56 L Respiratory Rate 12 13 Blood Pressure 84/53 L Pulse Oximetry 94 94 Oxygen Delivery Method 05/31/24 18:20 05/31/24 18:37 05/31/24 18:40 Temperature Pulse Rate 61 Respiratory Rate 13 Blood Pressure 84/51 L 94/50 L Pulse Oximetry 93 Oxygen Delivery Method 05/31/24 18:40 05/31/24 18:41 05/31/24 18:41 Temperature Pulse Rate 59 L 60 Respiratory Rate 19 15 Blood Pressure 96/51 L Pulse Oximetry 93 93 Oxygen Delivery Method 05/31/24 18:45 05/31/24 18:45 05/31/24 18:50 Temperature Pulse Rate 61 Respiratory Rate 13 Blood Pressure 98/55 L 101/55 L Pulse Oximetry 94 Oxygen Delivery Method 05/31/24 18:50 05/31/24 18:55 05/31/24 18:55 Temperature 97.2 F L 96.8 F L Pulse Rate 60 58 L Respiratory Rate 13 12 Blood Pressure 83/51 L Pulse Oximetry 94 93 Oxygen Delivery Method 05/31/24 18:57 05/31/24 18:57 05/31/24 19:00 Temperature 96.8 F L Pulse Rate 57 L Respiratory Rate 12 Blood Pressure 94/53 L 94/53 L Pulse Oximetry 93 Oxygen Delivery Method 05/31/24 19:00 05/31/24 19:05 05/31/24 19:05 Temperature 96.6 F L 96.4 F L Pulse Rate 56 L 56 L Respiratory Rate 11 L 11 L Blood Pressure 96/53 L Pulse Oximetry 93 94 Oxygen Delivery Method 05/31/24 19:10 05/31/24 19:10 05/31/24 19:15 Temperature 96.3 F L 96.3 F L Pulse Rate 56 L 56 L Respiratory Rate 12 11 L Blood Pressure 92/50 L Pulse Oximetry 94 93 Oxygen Delivery Method 05/31/24 19:15 05/31/24 19:20 05/31/24 19:20 Temperature 96.3 F L Pulse Rate 55 L Respiratory Rate 11 L Blood Pressure 96/51 L 93/55 L Pulse Oximetry 94 Oxygen Delivery Method 05/31/24 19:25 05/31/24 19:25 05/31/24 19:30 Temperature 96.1 F L 96.3 F L Pulse Rate 55 L 57 L Respiratory Rate 14 12 Blood Pressure 135/79 Pulse Oximetry 95 96 Oxygen Delivery Method 05/31/24 19:30 05/31/24 19:35 05/31/24 19:35 Temperature 96.3 F L Pulse Rate 58 L Respiratory Rate 12 Blood Pressure 140/81 140/84 Pulse Oximetry 96 Oxygen Delivery Method 05/31/24 19:37 05/31/24 19:37 05/31/24 19:40 Temperature 96.3 F L 96.3 F L Pulse Rate 56 L 56 L Respiratory Rate 11 L 11 L Blood Pressure 141/82 H Pulse Oximetry 96 96 Oxygen Delivery Method 05/31/24 19:40 05/31/24 19:44 05/31/24 19:44 Temperature 96.3 F L Pulse Rate 56 L Respiratory Rate 12 Blood Pressure 130/74 129/73 Pulse Oximetry 95 Oxygen Delivery Method 05/31/24 19:44 05/31/24 19:48 05/31/24 19:48 Temperature 96.3 F L Pulse Rate 56 L Respiratory Rate 12 Blood Pressure 129/73 124/70 Pulse Oximetry 95 Oxygen Delivery Method 05/31/24 19:48 05/31/24 19:52 05/31/24 19:52 Temperature 96.3 F L Pulse Rate 55 L Respiratory Rate 11 L Blood Pressure 124/70 117/65 Pulse Oximetry 96 Oxygen Delivery Method 05/31/24 19:52 05/31/24 19:59 05/31/24 19:59 Temperature 96.4 F L Pulse Rate 55 L Respiratory Rate 10 L Blood Pressure 117/65 131/71 Pulse Oximetry 96 Oxygen Delivery Method 05/31/24 20:00 05/31/24 20:00 05/31/24 20:04 Temperature 96.4 F L 96.4 F L Pulse Rate 55 L 55 L Respiratory Rate 12 12 Blood Pressure 135/72 Pulse Oximetry 95 95 Oxygen Delivery Method 05/31/24 20:04 05/31/24 20:08 05/31/24 20:08 Temperature 96.6 F L Pulse Rate 54 L Respiratory Rate 11 L Blood Pressure 123/64 127/66 Pulse Oximetry 96 Oxygen Delivery Method 05/31/24 20:12 05/31/24 20:12 Temperature 96.6 F L Pulse Rate 56 L Respiratory Rate 14 Blood Pressure 121/66 Pulse Oximetry 95 Oxygen Delivery Method <Kings Eden DO - Last Filed: 05/31/24 21:29> Orders Ordered: Discontinued Medications Heparin Sodium (Porcine) (Heparin 5,000 Unit/Ml Vial) 5,000 unit SUBCUT BID [facility] Last Admin: 06/01/24 08:47 Dose: 5,000 unit Documented By: BELEM Piperacillin Sod/Tazobactam (Sod 4.5 gm/ Sodium Chloride) 100 mls @ 200 mls/hr IV NOW ONE Stop: 05/31/24 17:43 Last Infusion: 05/31/24 19:05 Dose: Infused Documented By: Admin: 05/31/24 17:54 Dose: 200 mls/hr Documented By: ELISE Sodium Chloride (Normal Saline 0.9%) 2,331 mls @ 777 mls/hr 30 ml/kg infuse over 3 hr (2331 ml) IV NOW ONE Stop: 05/31/24 20:42 Last Infusion: 05/31/24 20:37 Dose: Infused Documented By: Admin: 05/31/24 17:45 Dose: 777 mls/hr Documented By: NOREPINEPHRINE BITARTRATE/D5W (Levophed) 4 mg in 250 mls @ 36.571 mls/hr IV TITRATE [facility]; Protocol Last Titration: 05/31/24 22:31 Dose: 0.04 mcg/kg/min, 14.628 mls/hr Documented By: Titration: 05/31/24 20:44 Dose: 0.05 mcg/kg/min, 18.285 mls/hr Documented By: Titration: 05/31/24 19:38 Dose: 0.075 mcg/kg/min, 27.428 mls/hr Documented By: Admin: 05/31/24 19:16 Dose: 0.1 mcg/kg/min, 36.571 mls/hr Documented By: ELISE Sodium Chloride (Normal Saline 0.9%) 1,000 mls @ 100 mls/hr IV CONT [facility] Last Admin: 06/01/24 10:39 Dose: 100 mls/hr Documented By: Infusion: 06/01/24 10:39 Dose: Infused Documented By: Admin: 06/01/24 00:47 Dose: 100 mls/hr Documented By: MARCIA Dextrose (D10w) 100 mls @ 999 mls/hr IV PRN PRN PRN Reason: Hypoglycemia Insulin Glargine (Insulin Glargine 100 Unit/Ml 3ml Pen) 40 unit SUBCUT NOW ONE Stop: 06/01/24 09:00 Last Admin: 06/01/24 09:18 Dose: 40 unit Documented By: BELEM Co-signed By: Insulin Glargine (Insulin Glargine 100 Unit/Ml 3ml Pen) 40 unit SUBCUT DAILY [facility] Insulin Human Lispro (Insulin Lispro 100 Unit/Ml 3ml Vial) 0 unit SUBCUT [facility]; Protocol Last Admin: 06/01/24 12:17 Dose: 4 unit Documented By: BELEM Co-signed By: KETTY Lactulose (Lactulose 20 Gm/30 Ml Solution) 30 gm PO NOW ONE Stop: 05/31/24 23:24 Last Admin: 06/01/24 00:48 Dose: 30 gm Documented By: MARCIA Lactulose (Lactulose 20 Gm/30 Ml Solution) 20 gm PO TID [facility] Last Admin: 06/01/24 08:46 Dose: 20 gm Documented By: BELEM Metformin HCl (Metformin Xr 500 Mg Tablet) 1,000 mg PO DAILY [facility] Last Admin: 06/01/24 08:47 Dose: 1,000 mg Documented By: BELEM Naloxone HCl (Naloxone 0.4 Mg/Ml Vial) 0.2 mg IV Q2MIN PRN PRN Reason: Opiate Reversal Lipase-Protease- Amylase [Creon] 36/114/180 Unit Cap 3 cap PO TIDWM [facility] Last Admin: 06/01/24 12:20 Dose: 3 cap Documented By: Admin: 06/01/24 09:18 Dose: 3 cap Documented By: BELEM Buprenorphine- Naloxone 2-0.5 Mg Sl Film 1.5 tab SL DAILY [facility] Last Admin: 06/01/24 09:18 Dose: 1.5 tab Documented By: BELEM Ziprasidone Hcl 80 (Mg Capsule) 80 mg PO BID [facility] Last Admin: 06/01/24 09:19 Dose: Not Given Documented By: BELEM Pantoprazole Sodium (Pantoprazole 40 Mg Vial) 40 mg IV DAILY [facility] Last Admin: 06/01/24 08:47 Dose: 40 mg Documented By: Admin: 05/31/24 22:36 Dose: 40 mg Documented By: [facility] Vital Signs Vital signs: Vital Signs - 8 hr 05/31/24 17:04 05/31/24 17:06 05/31/24 17:30 Temperature 97.5 F L Pulse Rate 63 64 59 L Respiratory Rate 14 Blood Pressure 98/65 Pulse Oximetry 95 95 93 Oxygen Delivery Method Room Air 05/31/24 17:30 05/31/24 17:32 05/31/24 17:32 Temperature Pulse Rate 60 Respiratory Rate Blood Pressure 82/51 L 84/53 L Pulse Oximetry 93 Oxygen Delivery Method 05/31/24 17:36 05/31/24 17:36 05/31/24 17:45 Temperature Pulse Rate 60 60 Respiratory Rate 11 L 15 Blood Pressure 89/56 L Pulse Oximetry 93 93 Oxygen Delivery Method 05/31/24 17:45 05/31/24 17:59 05/31/24 17:59 Temperature Pulse Rate 57 L Respiratory Rate 10 L Blood Pressure 94/59 L 89/53 L Pulse Oximetry 93 Oxygen Delivery Method 05/31/24 18:00 05/31/24 18:00 05/31/24 18:05 Temperature Pulse Rate 58 L 57 L Respiratory Rate 11 L 10 L Blood Pressure 87/52 L Pulse Oximetry 93 92 Oxygen Delivery Method 05/31/24 18:05 05/31/24 18:10 05/31/24 18:10 Temperature Pulse Rate 55 L Respiratory Rate 11 L Blood Pressure 82/54 L 75/51 L Pulse Oximetry 93 Oxygen Delivery Method 05/31/24 18:15 05/31/24 18:15 05/31/24 18:20 Temperature Pulse Rate 57 L 56 L Respiratory Rate 12 13 Blood Pressure 84/53 L Pulse Oximetry 94 94 Oxygen Delivery Method 05/31/24 18:20 05/31/24 18:37 05/31/24 18:40 Temperature Pulse Rate 61 Respiratory Rate 13 Blood Pressure 84/51 L 94/50 L Pulse Oximetry 93 Oxygen Delivery Method 05/31/24 18:40 05/31/24 18:41 05/31/24 18:41 Temperature Pulse Rate 59 L 60 Respiratory Rate 19 15 Blood Pressure 96/51 L Pulse Oximetry 93 93 Oxygen Delivery Method 05/31/24 18:45 05/31/24 18:45 05/31/24 18:50 Temperature Pulse Rate 61 Respiratory Rate 13 Blood Pressure 98/55 L 101/55 L Pulse Oximetry 94 Oxygen Delivery Method 05/31/24 18:50 05/31/24 18:55 05/31/24 18:55 Temperature 97.2 F L 96.8 F L Pulse Rate 60 58 L Respiratory Rate 13 12 Blood Pressure 83/51 L Pulse Oximetry 94 93 Oxygen Delivery Method 05/31/24 18:57 05/31/24 18:57 05/31/24 19:00 Temperature 96.8 F L Pulse Rate 57 L Respiratory Rate 12 Blood Pressure 94/53 L 94/53 L Pulse Oximetry 93 Oxygen Delivery Method 05/31/24 19:00 05/31/24 19:05 05/31/24 19:05 Temperature 96.6 F L 96.4 F L Pulse Rate 56 L 56 L Respiratory Rate 11 L 11 L Blood Pressure 96/53 L Pulse Oximetry 93 94 Oxygen Delivery Method 05/31/24 19:10 05/31/24 19:10 05/31/24 19:15 Temperature 96.3 F L 96.3 F L Pulse Rate 56 L 56 L Respiratory Rate 12 11 L Blood Pressure 92/50 L Pulse Oximetry 94 93 Oxygen Delivery Method 05/31/24 19:15 05/31/24 19:20 05/31/24 19:20 Temperature 96.3 F L Pulse Rate 55 L Respiratory Rate 11 L Blood Pressure 96/51 L 93/55 L Pulse Oximetry 94 Oxygen Delivery Method 05/31/24 19:25 05/31/24 19:25 05/31/24 19:30 Temperature 96.1 F L 96.3 F L Pulse Rate 55 L 57 L Respiratory Rate 14 12 Blood Pressure 135/79 Pulse Oximetry 95 96 Oxygen Delivery Method 05/31/24 19:30 05/31/24 19:35 05/31/24 19:35 Temperature 96.3 F L Pulse Rate 58 L Respiratory Rate 12 Blood Pressure 140/81 140/84 Pulse Oximetry 96 Oxygen Delivery Method 05/31/24 19:37 05/31/24 19:37 05/31/24 19:40 Temperature 96.3 F L 96.3 F L Pulse Rate 56 L 56 L Respiratory Rate 11 L 11 L Blood Pressure 141/82 H Pulse Oximetry 96 96 Oxygen Delivery Method 05/31/24 19:40 05/31/24 19:44 05/31/24 19:44 Temperature 96.3 F L Pulse Rate 56 L Respiratory Rate 12 Blood Pressure 130/74 129/73 Pulse Oximetry 95 Oxygen Delivery Method 05/31/24 19:44 05/31/24 19:48 05/31/24 19:48 Temperature 96.3 F L Pulse Rate 56 L Respiratory Rate 12 Blood Pressure 129/73 124/70 Pulse Oximetry 95 Oxygen Delivery Method 05/31/24 19:48 05/31/24 19:52 05/31/24 19:52 Temperature 96.3 F L Pulse Rate 55 L Respiratory Rate 11 L Blood Pressure 124/70 117/65 Pulse Oximetry 96 Oxygen Delivery Method 05/31/24 19:52 05/31/24 19:59 05/31/24 19:59 Temperature 96.4 F L Pulse Rate 55 L Respiratory Rate 10 L Blood Pressure 117/65 131/71 Pulse Oximetry 96 Oxygen Delivery Method 05/31/24 20:00 05/31/24 20:00 05/31/24 20:04 Temperature 96.4 F L 96.4 F L Pulse Rate 55 L 55 L Respiratory Rate 12 12 Blood Pressure 135/72 Pulse Oximetry 95 95 Oxygen Delivery Method 05/31/24 20:04 05/31/24 20:08 05/31/24 20:08 Temperature 96.6 F L Pulse Rate 54 L Respiratory Rate 11 L Blood Pressure 123/64 127/66 Pulse Oximetry 96 Oxygen Delivery Method 05/31/24 20:12 05/31/24 20:12 Temperature 96.6 F L Pulse Rate 56 L Respiratory Rate 14 Blood Pressure 121/66 Pulse Oximetry 95 Oxygen Delivery Method [facility] - Weakness <Emily Russell, DO - Last Filed: 06/09/24 00:51> Lab Data 06/01/24 05:05 06/01/24 05:05 Labs: Lab Results 05/31/24 05/31/24 05/31/24 Range/Units 16:48 17:36 17:48 WBC 9.1 (4.5-11.0) X10^3/uL RBC 5.22 H (4.0-5.2) X10^6/uL Hgb 14.5 (12.0-16.0) g/dL Hct 43.7 (36-46) % MCV 83.8 (80-100) fL MCH 27.8 (26-34) PG MCHC 33.2 (30-36) % RDW 15.2 H (11.6-14.8) % Plt Count 180 (150-400) X10^3/uL Neut % (Auto) 78.4 H (50-75) % Lymph % (Auto) 13.6 L (25-40) % [place] % (Auto) 7.0 (3-14) % Eos % (Auto) 0.7 L (2-4) % Baso % (Auto) 0.3 (0-2) % Neut # (Auto) 7200 H (9813-7281) /uL Lymph # (Auto) 1200 (0460-8214) /uL [place] # (Auto) 600 (0-900) /uL Eos # (Auto) 100 (0-450) /uL Baso # (Auto) 0 (0-100) /uL PT 11.8 (9.4-12.5) SECONDS INR 1.0 (0.9-1.3) APTT 41 H (25.1-36.5) SECONDS Sodium 136 L (137-145) mmol/L Potassium 3.6 (3.4-5.1) mmol/L Chloride 105 (98-107) mmol/L Carbon Dioxide 16 L (22-32) mmol/L BUN 27 H (7-17) mg/dL Creatinine 1.07 H (0.52-1.04) mg/dL Estimated GFR 59 L (>60) mL/min BUN/Creatinine Ratio 25.2 H (6-22) Glucose 99 (80-110) mg/dL Lactate 2.9 H (0.7-2.1) mmol/L Calcium 10.5 H (8.4-10.2) mg/dL Total Bilirubin 0.7 (0.2-1.3) mg/dL AST 65 H (14-36) IU/L ALT 69 H (<35) IU/L Alkaline Phosphatase 631 H (38-126) U/L Ammonia 92 H (9-30) umol/L Total Creatine Kinase 70 (30-135) U/L Troponin I < 0.012 (0.01-0.034) ng/mL Total Protein 8.3 H (6.3-8.2) g/dL Albumin 4.5 (3.5-5.0) g/dL Globulin 3.8 (1.7-4.1) g/dL Albumin/Globulin Ratio 1.2 (1.0-2.8) Procalcitonin 0.357 (<0.5) ng/mL TSH 0.083 L (0.47-4.68) uIU/mL Urine Color Urine Appearance Urine pH (4.5-8.0) Ur Specific [place] (1.000-1.035) Urine Protein (Negative) Urine Glucose (UA) (Negative) g/dL Urine Ketones (NEGATIVE) Urine Occult Blood (Negative) Urine Nitrate (Negative) Urine Bilirubin (NEGATIVE) Urine Urobilinogen (0.2) E.U./dL Ur Leukocyte Esterase (NEGATIVE) Urine RBC (0-5/HPF) Urine WBC (0-5/HPF) Ur Squamous Epith Cells (0-5/HPF) Urine Bacteria (None) Ur Culture Indicated? Vol Urine Centrifuged Chlamy pneumoniae PCR Not detected (Not Detect) Adenovirus (PCR) Not detected (Not Detect) B. pertussis DNA (PCR) Not detected (Not Detect) B.parapertussis DNA PCR Not detected (Not Detecte) Coronavirus OC43 (PCR) Not detected (Not Detect) Coronavirus HKU1 (PCR) Not detected (Not Detect) Coronavirus 229E (PCR) Not detected (Not Detect) SARS-CoV-2 (PCR) Not detected (Not Detecte) Coronavirus NL63 (PCR) Not detected (Not Detect) Human Metapneumovir PCR Not detected (Not Detect) Influenza Type A (PCR) Not detected (Not Detect) Influenza Type B (PCR) Not detected (Not Detect) M. pneumoniae (PCR) Not detected (Not Detect) Parainfluenza 1 (PCR) Not detected (Not Detect) Parainfluenza 2 (PCR) Not detected (Not Detect) Parainfluenza 3 (PCR) Not detected (Not Detect) Parainfluenza 4 (PCR) Not detected (Not Detect) RSV (PCR) Not detected (Not Detect) Entero/Rhino (PCR) Not detected (Not Detect) 05/31/24 05/31/24 Range/Units 18:48 19:01 WBC (4.5-11.0) X10^3/uL RBC (4.0-5.2) X10^6/uL Hgb (12.0-16.0) g/dL Hct (36-46) % MCV (80-100) fL MCH (26-34) PG MCHC (30-36) % RDW (11.6-14.8) % Plt Count (150-400) X10^3/uL Neut % (Auto) (50-75) % Lymph % (Auto) (25-40) % [place] % (Auto) (3-14) % Eos % (Auto) (2-4) % Baso % (Auto) (0-2) % Neut # (Auto) (7046-5122) /uL Lymph # (Auto) (8562-4256) /uL [place] # (Auto) (0-900) /uL Eos # (Auto) (0-450) /uL Baso # (Auto) (0-100) /uL PT (9.4-12.5) SECONDS INR (0.9-1.3) APTT (25.1-36.5) SECONDS Sodium (137-145) mmol/L Potassium (3.4-5.1) mmol/L Chloride (98-107) mmol/L Carbon Dioxide (22-32) mmol/L BUN (7-17) mg/dL Creatinine (0.52-1.04) mg/dL Estimated GFR (>60) mL/min BUN/Creatinine Ratio (6-22) Glucose (80-110) mg/dL Lactate 2.3 H (0.7-2.1) mmol/L Calcium (8.4-10.2) mg/dL Total Bilirubin (0.2-1.3) mg/dL AST (14-36) IU/L ALT (<35) IU/L Alkaline Phosphatase (38-126) U/L Ammonia (9-30) umol/L Total Creatine Kinase (30-135) U/L Troponin I (0.01-0.034) ng/mL Total Protein (6.3-8.2) g/dL Albumin (3.5-5.0) g/dL Globulin (1.7-4.1) g/dL Albumin/Globulin Ratio (1.0-2.8) Procalcitonin (<0.5) ng/mL TSH (0.47-4.68) uIU/mL Urine Color Yellow Urine Appearance Clear Urine pH 7.0 (4.5-8.0) Ur Specific [place] <=1.005 (1.000-1.035) Urine Protein Trace H (Negative) Urine Glucose (UA) Negative (Negative) g/dL Urine Ketones Negative (NEGATIVE) Urine Occult Blood Trace-intact (Negative) Urine Nitrate Negative (Negative) Urine Bilirubin Negative (NEGATIVE) Urine Urobilinogen 0.2 (0.2) E.U./dL Ur Leukocyte Esterase 1+ H (NEGATIVE) Urine RBC 0-1/hpf (0-5/HPF) Urine WBC 1-5/hpf (0-5/HPF) Ur Squamous Epith Cells 10-30 /hpf H D (0-5/HPF) Urine Bacteria Many (>30) H (None) Ur Culture Indicated? Specimen cultured Vol Urine Centrifuged 10ml (spun) Chlamy pneumoniae PCR (Not Detect) Adenovirus (PCR) (Not Detect) B. pertussis DNA (PCR) (Not Detect) B.parapertussis DNA PCR (Not Detecte) Coronavirus OC43 (PCR) (Not Detect) Coronavirus HKU1 (PCR) (Not Detect) Coronavirus 229E (PCR) (Not Detect) SARS-CoV-2 (PCR) (Not Detecte) Coronavirus NL63 (PCR) (Not Detect) Human Metapneumovir PCR (Not Detect) Influenza Type A (PCR) (Not Detect) Influenza Type B (PCR) (Not Detect) M. pneumoniae (PCR) (Not Detect) Parainfluenza 1 (PCR) (Not Detect) Parainfluenza 2 (PCR) (Not Detect) Parainfluenza 3 (PCR) (Not Detect) Parainfluenza 4 (PCR) (Not Detect) RSV (PCR) (Not Detect) Entero/Rhino (PCR) (Not Detect) Point of Care Testing Glucose POC 113 MDM Narrative Medical decision making narrative: Patient is a 58-year-old female history HERRING, presenting today with weakness and altered status. She was previously admitted for hepatic encephalopathy she both and patient report that she is taking medication. She arrived by EMS, quickly became hypotensive sepsis fluids and antibiotics ordered. Blood work and imaging pending Patient Signed out to Dr. Rodriguez <Kings Eden, DO - Last Filed: 05/31/24 21:29> Lab Data Labs: Lab Results 05/31/24 05/31/2424 Range/Units 16:48 17:36 17:48 WBC 9.1 (4.5-11.0) X10^3/uL RBC 5.22 H (4.0-5.2) X10^6/uL Hgb 14.5 (12.0-16.0) g/dL Hct 43.7 (36-46) % MCV 83.8 (80-100) fL MCH 27.8 (26-34) PG MCHC 33.2 (30-36) % RDW 15.2 H (11.6-14.8) % Plt Count 180 (150-400) X10^3/uL Neut % (Auto) 78.4 H (50-75) % Lymph % (Auto) 13.6 L (25-40) % [place] % (Auto) 7.0 (3-14) % Eos % (Auto) 0.7 L (2-4) % Baso % (Auto) 0.3 (0-2) % Neut # (Auto) 7200 H (9233-4534) /uL Lymph # (Auto) 1200 (1124-7616) /uL [place] # (Auto) 600 (0-900) /uL Eos # (Auto) 100 (0-450) /uL Baso # (Auto) 0 (0-100) /uL PT 11.8 (9.4-12.5) SECONDS INR 1.0 (0.9-1.3) APTT 41 H (25.1-36.5) SECONDS Sodium 136 L (137-145) mmol/L Potassium 3.6 (3.4-5.1) mmol/L Chloride 105 (98-107) mmol/L Carbon Dioxide 16 L (22-32) mmol/L BUN 27 H (7-17) mg/dL Creatinine 1.07 H (0.52-1.04) mg/dL Estimated GFR 59 L (>60) mL/min BUN/Creatinine Ratio 25.2 H (6-22) Glucose 99 (80-110) mg/dL Lactate 2.9 H (0.7-2.1) mmol/L Calcium 10.5 H (8.4-10.2) mg/dL Total Bilirubin 0.7 (0.2-1.3) mg/dL AST 65 H (14-36) IU/L ALT 69 H (<35) IU/L Alkaline Phosphatase 631 H (38-126) U/L Ammonia 92 H (9-30) umol/L Total Creatine Kinase 70 (30-135) U/L Troponin I < 0.012 (0.01-0.034) ng/mL Total Protein 8.3 H (6.3-8.2) g/dL Albumin 4.5 (3.5-5.0) g/dL Globulin 3.8 (1.7-4.1) g/dL Albumin/Globulin Ratio 1.2 (1.0-2.8) Procalcitonin 0.357 (<0.5) ng/mL TSH 0.083 L (0.47-4.68) uIU/mL Urine Color Urine Appearance Urine pH (4.5-8.0) Ur Specific [place] (1.000-1.035) Urine Protein (Negative) Urine Glucose (UA) (Negative) g/dL Urine Ketones (NEGATIVE) Urine Occult Blood (Negative) Urine Nitrate (Negative) Urine Bilirubin (NEGATIVE) Urine Urobilinogen (0.2) E.U./dL Ur Leukocyte Esterase (NEGATIVE) Urine RBC (0-5/HPF) Urine WBC (0-5/HPF) Ur Squamous Epith Cells (0-5/HPF) Urine Bacteria (None) Ur Culture Indicated? Vol Urine Centrifuged Chlamy pneumoniae PCR Not detected (Not Detect) Adenovirus (PCR) Not detected (Not Detect) B. pertussis DNA (PCR) Not detected (Not Detect) B.parapertussis DNA PCR Not detected (Not Detecte) Coronavirus OC43 (PCR) Not detected (Not Detect) Coronavirus HKU1 (PCR) Not detected (Not Detect) Coronavirus 229E (PCR) Not detected (Not Detect) SARS-CoV-2 (PCR) Not detected (Not Detecte) Coronavirus NL63 (PCR) Not detected (Not Detect) Human Metapneumovir PCR Not detected (Not Detect) Influenza Type A (PCR) Not detected (Not Detect) Influenza Type B (PCR) Not detected (Not Detect) M. pneumoniae (PCR) Not detected (Not Detect) Parainfluenza 1 (PCR) Not detected (Not Detect) Parainfluenza 2 (PCR) Not detected (Not Detect) Parainfluenza 3 (PCR) Not detected (Not Detect) Parainfluenza 4 (PCR) Not detected (Not Detect) RSV (PCR) Not detected (Not Detect) Entero/Rhino (PCR) Not detected (Not Detect) 05/31/24 05/31/24 Range/Units 18:48 19:01 WBC (4.5-11.0) X10^3/uL RBC (4.0-5.2) X10^6/uL Hgb (12.0-16.0) g/dL Hct (36-46) % MCV (80-100) fL MCH (26-34) PG MCHC (30-36) % RDW (11.6-14.8) % Plt Count (150-400) X10^3/uL Neut % (Auto) (50-75) % Lymph % (Auto) (25-40) % [place] % (Auto) (3-14) % Eos % (Auto) (2-4) % Baso % (Auto) (0-2) % Neut # (Auto) (5978-2302) /uL Lymph # (Auto) (2153-3312) /uL [place] # (Auto) (0-900) /uL Eos # (Auto) (0-450) /uL Baso # (Auto) (0-100) /uL PT (9.4-12.5) SECONDS INR (0.9-1.3) APTT (25.1-36.5) SECONDS Sodium (137-145) mmol/L Potassium (3.4-5.1) mmol/L Chloride (98-107) mmol/L Carbon Dioxide (22-32) mmol/L BUN (7-17) mg/dL Creatinine (0.52-1.04) mg/dL Estimated GFR (>60) mL/min BUN/Creatinine Ratio (6-22) Glucose (80-110) mg/dL Lactate 2.3 H (0.7-2.1) mmol/L Calcium (8.4-10.2) mg/dL Total Bilirubin (0.2-1.3) mg/dL AST (14-36) IU/L ALT (<35) IU/L Alkaline Phosphatase (38-126) U/L Ammonia (9-30) umol/L Total Creatine Kinase (30-135) U/L Troponin I (0.01-0.034) ng/mL Total Protein (6.3-8.2) g/dL Albumin (3.5-5.0) g/dL Globulin (1.7-4.1) g/dL Albumin/Globulin Ratio (1.0-2.8) Procalcitonin (<0.5) ng/mL TSH (0.47-4.68) uIU/mL Urine Color Yellow Urine Appearance Clear Urine pH 7.0 (4.5-8.0) Ur Specific [place] <=1.005 (1.000-1.035) Urine Protein Trace H (Negative) Urine Glucose (UA) Negative (Negative) g/dL Urine Ketones Negative (NEGATIVE) Urine Occult Blood Trace-intact (Negative) Urine Nitrate Negative (Negative) Urine Bilirubin Negative (NEGATIVE) Urine Urobilinogen 0.2 (0.2) E.U./dL Ur Leukocyte Esterase 1+ H (NEGATIVE) Urine RBC 0-1/hpf (0-5/HPF) Urine WBC 1-5/hpf (0-5/HPF) Ur Squamous Epith Cells 10-30 /hpf H D (0-5/HPF) Urine Bacteria Many (>30) H (None) Ur Culture Indicated? Specimen cultured Vol Urine Centrifuged 10ml (spun) Chlamy pneumoniae PCR (Not Detect) Adenovirus (PCR) (Not Detect) B. pertussis DNA (PCR) (Not Detect) B.parapertussis DNA PCR (Not Detecte) Coronavirus OC43 (PCR) (Not Detect) Coronavirus HKU1 (PCR) (Not Detect) Coronavirus 229E (PCR) (Not Detect) SARS-CoV-2 (PCR) (Not Detecte) Coronavirus NL63 (PCR) (Not Detect) Human Metapneumovir PCR (Not Detect) Influenza Type A (PCR) (Not Detect) Influenza Type B (PCR) (Not Detect) M. pneumoniae (PCR) (Not Detect) Parainfluenza 1 (PCR) (Not Detect) Parainfluenza 2 (PCR) (Not Detect) Parainfluenza 3 (PCR) (Not Detect) Parainfluenza 4 (PCR) (Not Detect) RSV (PCR) (Not Detect) Entero/Rhino (PCR) (Not Detect) Point of Care Testing Glucose POC [address] scan - head: Radiologist Impression: [address] [address] [address] Scan Report Signed Patient: Sheela Brown MR#: [id number] : 1965 Acct:[id number] Age/Sex: 58 / F Date of Service: 05/31/24 Loc: ED Accession Number: [id number] Procedure: CT head/brain wo con Ordering Provider: Emily Russell D.O. PROCEDURE: CT HEAD/BRAIN WO CON INDICATIONS: altered mental status TECHNIQUE: Noncontrast 4.5 mm thick angled axial sections acquired from the foramen magnum to the vertex, with coronal and sagittal reformats. For radiation dose reduction, the following was used: automated exposure control, adjustment of mA and/or kV according to patient size. COMPARISON: [facility], CT, CT HEAD/BRAIN WO CON, 06/26/2023, 15:51. FINDINGS: Image quality: Diagnostic. CSF spaces: Basal cisterns are patent. No extra-axial fluid collections. The ventricles are symmetric in size and shape. Brain: No intracranial bleeds or masses. There are minimal periventricular and deep white matter chronic small vessel ischemic changes. There is intracranial internal carotid artery atherosclerosis. Skull and face: Calvarium and visualized facial bones appear intact, without suspicious lesions. Sinuses: Visualized sinuses and mastoids are clear. IMPRESSION: No acute intracranial pathology. CT chest abd pelvis: Radiologist Impression: [address] [address] [address] Scan Report Signed Patient: Sheela Brown MR#: [id number] : 1965 Acct:[id number] Age/Sex: 58 / F Date of Service: 05/31/24 Loc: ED Accession Number: [id number] Procedure: CT chest abd pel w con Ordering Provider: Kings Eden D.O. PROCEDURE: CT CHEST ABD PEL W CON INDICATIONS: AMS, sepsis , hx HERRING TECHNIQUE: After the administration of intravenous contrast, 5 mm thick sections acquired from the lung apices to the symphysis. 5 mm coronal and sagittal reformats were performed, with additional 7 mm MIP reformats through the lungs. For radiation dose reduction, the following was used: automated exposure control, adjustment of mA and/or kV according to patient size. COMPARISON: [facility], CT, CT IVP, 09/03/2023, 9:07. [facility], CT, CT CHEST ABD PEL W CON, 06/26/2023, 17:04. FINDINGS: Image quality: Excellent. CHEST: Lower Neck: No enlarged lymph nodes. Thyroid: No thyroid nodules which require sonographic follow up, per consensus guidelines. Axillae: No enlarged lymph nodes. Chest Wall: Unremarkable. Lungs and Pleura: No pneumothorax or pleural effusions. Streaky right basilar opacities likely atelectasis. Heart: Heart size is normal. No pericardial effusion. Thoracic Vessels: The aorta and pulmonary arteries demonstrate normal size. Mediastinum and Na[place]: No enlarged lymph nodes. Esophagus: No wall thickening. No hiatal hernia. ABDOMEN: Liver: Cirrhotic appearance with heterogeneous mass lesions appearing more prominent when compared to 09/03/2023. There better identified on prior MRI of 08/07/2023. Gallbladder: Removed. Biliary ducts: No biliary dilation. Pancreas: No ductal dilation. Spleen: Size is enlarged. Adrenal Glands: No adrenal nodules. Kidneys and Ureters: No hydronephrosis. No solid mass. No complex renal cystic lesion which requires follow up. Stomach and Bowel: Normal colonic caliber, without significant wall thickening. Peritoneum: No abnormal intraperitoneal fluid. No free air. Ventral Wall: No significant ventral hernia. Abdominal Nodes: No retroperitoneal or mesenteric adenopathy by size criteria. Subcentimeter lymph nodes are present. Vessels: Aorta and inferior vena cava are normal in size. PELVIS: Pelvic Organs: Unremarkable. Bladder: No bladder wall thickening, accounting for underdistention. Pelvic Nodes: No enlarged lymph nodes. Miscellaneous: No inguinal hernias are seen. Bones: No aggressive osseous abnormality. IMPRESSION: Slightly more prominent appearance is cirrhotic liver with heterogeneous mass lesions. Splenomegaly. MDM Narrative Medical decision making narrative: Patient is a 58-year-old female history HERRING, presenting today with weakness and altered status. She was previously admitted for hepatic encephalopathy she both and patient report that she is taking medication. She arrived by EMS, quickly became hypotensive sepsis fluids and antibiotics ordered. Blood work and imaging pending Patient Signed out to Dr. Eden 1800: Received sign-out by morning provider, patient presented for altered mental status with a history of HERRING, has a history of hepatic encephalopathy, symptoms started proximally 2 days ago, here in the emergency department patient was given broad-spectrum antibiotics given patient with elevated lactate hypotensive, patient most likely to be admitted for persistent hypotension, sepsis, altered mental status. 191: Patient was re-evaluated, still GCS 15 but does appear confused, patient has completed sepsis bolus 30 cc/kilos. Patient's blood pressure still fluctuant, has dropped down to map of 60 therefore will start levo at this time. 1946: Patient's updated, did obtain consent to place central line. Patient will be admitted here to the ICU call placed to hospitalist for admission 2008: The patient's management plan was discussed Dr. Nice, who agrees to admit the patient to their service and assumes care of this patient at this time. Full admission orders will be placed by the primary team. 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
--- NOTE | 2024-05-31 17:30 | DI.RAD.S_ITS ---
PROCEDURE: XR CHEST 1V INDICATIONS: weakness TECHNIQUE: One view of the chest was acquired. COMPARISON: [facility], CR, XR CHEST 1V, 09/08/2021, 14:18. [facility], CR, XR CHEST 1V, 05/03/2019, 21:22. FINDINGS: Surgical changes and devices: None. Lungs and pleura: Lungs are clear. No pleural effusions or pneumothorax. Asymmetry of the hemidiaphragms is stable. Mediastinum: Mediastinal contours appear normal. Heart size is normal. Bones and chest wall: No suspicious bony lesions. Overlying soft tissues appear unremarkable. IMPRESSION: No acute cardiopulmonary abnormality is seen. Dictated by: Nisha Haddad M.D. on 05/31/2024 at 17:11 Approved by: Nisha Haddad M.D. on 05/31/2024 at 17:12
[2024-05-31 17:38] LABS: Add Manual Diff / Slide Review NO; Basophils Absolute Auto 0 /uL (0-100); Basophils Percent Auto 0.3 % (0-2); Eosinophils Absolute Auto 100 /uL (0-450); Eosinophils Percent Auto 0.7 % (2-4); Hematocrit 43.7 % (36-46); Hemoglobin 14.5 g/dL (12.0-16.0); Lymphocytes Absolute Auto 1200 /uL (1100-4500); Lymphocytes Percent Auto 13.6 % (25-40); Mean Corpuscular HGB Conc 33.2 % (30-36); Mean Corpuscular Hemoglobin 27.8 PG (26-34); Mean Corpuscular Volume 83.8 fL (80-100); Monocytes Absolute Auto 600 /uL (0-900); Neutrophils Absolute Auto 7200 /uL (1500-7000); Neutrophils Percent Auto 78.4 % (50-75); Platelet Count 180 X10^3/uL (150-400); Red Blood Cell Count 5.22 X10^6/uL (4.0-5.2); Red Cell Distribution Width 15.2 % (11.6-14.8); White Blood Cell Count 9.1 X10^3/uL (4.5-11.0)
[2024-05-31 17:40] LABS: Prothrombin Time 11.8 SECONDS (9.4-12.5)
[2024-05-31 17:42] LABS: PTT Partial Thromboplastin Tim 41 SECONDS (25.1-36.5)
--- NOTE | 2024-05-31 17:42 | DI.CT.S_ITS ---
PROCEDURE: CT HEAD/BRAIN WO CON INDICATIONS: altered mental status TECHNIQUE: Noncontrast 4.5 mm thick angled axial sections acquired from the foramen magnum to the vertex, with coronal and sagittal reformats. For radiation dose reduction, the following was used: automated exposure control, adjustment of mA and/or kV according to patient size. COMPARISON: [facility], CT, CT HEAD/BRAIN WO CON, 06/26/2023, 15:51. FINDINGS: Image quality: Diagnostic. CSF spaces: Basal cisterns are patent. No extra-axial fluid collections. The ventricles are symmetric in size and shape. Brain: No intracranial bleeds or masses. There are minimal periventricular and deep white matter chronic small vessel ischemic changes. There is intracranial internal carotid artery atherosclerosis. Skull and face: Calvarium and visualized facial bones appear intact, without suspicious lesions. Sinuses: Visualized sinuses and mastoids are clear. IMPRESSION: No acute intracranial pathology. Dictated by: Nisha Haddad M.D. on 05/31/2024 at 17:26 Approved by: Nisha Haddad M.D. on 05/31/2024 at 17:28
[2024-05-31 17:45] LABS: Lactate (Lactic Acid) 2.9 mmol/L (0.7-2.1)
[2024-05-31] MEDS: SODIUM CHLORIDE 0.9% 777 ML IV (17:45)
[2024-05-31 17:46] LABS: Alanine Aminotransferase 69 IU/L (<35); Albumin 4.5 g/dL (3.5-5.0); Albumin Globulin Ratio 1.2 (1.0-2.8); Alkaline Phosphatase 631 U/L (38-126); Aspartate Aminotransferase 65 IU/L (14-36); BUN Creatinine Ratio 25.2 (6-22); Bilirubin Total 0.7 mg/dL (0.2-1.3); Blood Urea Nitrogen 27 mg/dL (7-17); Calcium 10.5 mg/dL (8.4-10.2); Carbon Dioxide 16 mmol/L (22-32); Chloride 105 mmol/L (98-107); Creatine Kinase 70 U/L (30-135); Estimated Glomerular Filt Rate 59 mL/min (>60); Globulin 3.8 g/dL (1.7-4.1); Glucose 99 mg/dL (80-110); HEMOLYSIS < 15 (0-50); Potassium 3.6 mmol/L (3.4-5.1); Sodium 136 mmol/L (137-145); Total Protein 8.3 g/dL (6.3-8.2)
[2024-05-31] MEDS: PIPERACILLIN/TAZO 4.5 GM in SODIUM CHLORIDE 0.9% 100 ML IV (17:54)
[2024-05-31 17:55] LABS: Ammonia (NH3) 92 umol/L (9-30)
[2024-05-31 17:58] LABS: Troponin I < 0.012 ng/mL (0.01-0.034)
[2024-05-31 18:03] LABS: Procalcitonin 0.357 ng/mL (<0.5)
[2024-05-31 18:16] LABS: Thyroid Stimulating Hormone 0.083 uIU/mL (0.47-4.68)
--- NOTE | 2024-05-31 18:16 | DI.CT.S_ITS ---
PROCEDURE: CT CHEST ABD PEL W CON INDICATIONS: AMS, sepsis , hx HERRING TECHNIQUE: After the administration of intravenous contrast, 5 mm thick sections acquired from the lung apices to the symphysis. 5 mm coronal and sagittal reformats were performed, with additional 7 mm MIP reformats through the lungs. For radiation dose reduction, the following was used: automated exposure control, adjustment of mA and/or kV according to patient size. COMPARISON: [facility], CT, CT IVP, 09/03/2023, 9:07. [facility], CT, CT CHEST ABD PEL W CON, 06/26/2023, 17:04. FINDINGS: Image quality: Excellent. CHEST: Lower Neck: No enlarged lymph nodes. Thyroid: No thyroid nodules which require sonographic follow up, per consensus guidelines. Axillae: No enlarged lymph nodes. Chest Wall: Unremarkable. Lungs and Pleura: No pneumothorax or pleural effusions. Streaky right basilar opacities likely atelectasis. Heart: Heart size is normal. No pericardial effusion. Thoracic Vessels: The aorta and pulmonary arteries demonstrate normal size. Mediastinum and [place]: No enlarged lymph nodes. Esophagus: No wall thickening. No hiatal hernia. ABDOMEN: Liver: Cirrhotic appearance with heterogeneous mass lesions appearing more prominent when compared to 09/03/2023. There better identified on prior MRI of 08/07/2023. Gallbladder: Removed. Biliary ducts: No biliary dilation. Pancreas: No ductal dilation. Spleen: Size is enlarged. Adrenal Glands: No adrenal nodules. Kidneys and Ureters: No hydronephrosis. No solid mass. No complex renal cystic lesion which requires follow up. Stomach and Bowel: Normal colonic caliber, without significant wall thickening. Peritoneum: No abnormal intraperitoneal fluid. No free air. Ventral Wall: No significant ventral hernia. Abdominal Nodes: No retroperitoneal or mesenteric adenopathy by size criteria. Subcentimeter lymph nodes are present. Vessels: Aorta and inferior vena cava are normal in size. PELVIS: Pelvic Organs: Unremarkable. Bladder: No bladder wall thickening, accounting for underdistention. Pelvic Nodes: No enlarged lymph nodes. Miscellaneous: No inguinal hernias are seen. Bones: No aggressive osseous abnormality. IMPRESSION: Slightly more prominent appearance is cirrhotic liver with heterogeneous mass lesions. Splenomegaly. Dictated by: Christina Kaye M.D. on 05/31/2024 at 19:11 Approved by: Christina Kaye M.D. on 05/31/2024 at 19:18
[2024-05-31 18:41] LABS: Adenovirus Not Detected (Not Detect); B. parapertussis Not Detected (Not Detecte); Bordetella pertussis Not Detected (Not Detect); Chlamydophila pneumoniae Not Detected (Not Detect); Coronavirus 229E Not Detected (Not Detect); Coronavirus HKU1 Not Detected (Not Detect); Coronavirus NL 63 Not Detected (Not Detect); Coronavirus OC43 Not Detected (Not Detect); Human Metapneumovirus Not Detected (Not Detect); Human Rhinovirus/Enterovirus Not Detected (Not Detect); Influenza A Not Detected (Not Detect); Influenza B Not Detected (Not Detect); Mycoplasma pneumoniae Not Detected (Not Detect); Parainfluenza Virus 1 Not Detected (Not Detect); Parainfluenza Virus 2 Not Detected (Not Detect); Parainfluenza Virus 3 Not Detected (Not Detect); Parainfluenza Virus 4 Not Detected (Not Detect); Respiratory Syncytial Virus Not Detected (Not Detect); SARS- CoV-2 Not Detected (Not Detecte)
[2024-05-31 19:07] LABS: Appearance Urine UA CLEAR; Bilirubin Urine UA NEGATIVE (NEGATIVE); Color Urine UA YELLOW; Glucose Urine UA NEGATIVE (Negative); Ketones Urine UA NEGATIVE (NEGATIVE); Leukocyte Esterase Urine UA 1+ (NEGATIVE); Nitrite Urine UA NEGATIVE (Negative); Occult Blood Urine UA TRACE-INTACT (Negative); Protein Urine UA TRACE (Negative); Specific Gravity Urine UA <=1.005 (1.000-1.035); Urobilinogen Urine UA 0.2 E.U./dL (0.2)
[2024-05-31 19:10] LABS: Reflexed Lactate in 2 Hours Y
[2024-05-31 19:14] LABS: Bacteria Urine Many (>30); Culture Indicated Urine Specimen Cultured; RBC Urine 0-1/HPF (0-5/HPF); Squamous Epithelial Cell Urine 10-30 /HPF (0-5/HPF); Urine Volume 10mL (spun); WBC Urine 1-5/HPF (0-5/HPF)
[2024-05-31] MEDS: NOREPINEPHRINE BITARTRATE/D5W 4 MG/250 ML PLAST..BAG 36.571 MG IV (19:16)
[2024-05-31 19:19] LABS: Lactate 2HR (Lactic Acid Rflx) 2.3 mmol/L (0.7-2.1)
--- NOTE | 2024-05-31 20:30 | DI.RAD.S_ITS ---
PROCEDURE: XR CHEST 1V INDICATIONS: PICC insertion TECHNIQUE: One view of the chest was acquired. COMPARISON: [facility], CR, XR CHEST 1V, 05/31/2024, 17:30. [facility], CR, XR CHEST 1V, 09/08/2021, 14:18. FINDINGS: Surgical changes and devices: Left internal jugular catheter is seen with tip projecting over the superior vena cava. Lungs and pleura: Elevation of the right hemidiaphragm. The right costophrenic angle is excluded from the field of view of this exam. No pleural effusions or pneumothorax. Mediastinum: Mediastinal contours appear normal. Heart size is normal. Bones and chest wall: No suspicious bony lesions. Overlying soft tissues appear unremarkable. IMPRESSION: Left internal jugular catheter is seen with catheter tip projecting over the superior vena cava. Approved by: Josh Mcbride M.D. on 05/31/2024 at 21:24
[2024-05-31] MEDS: PANTOPRAZOLE 40 MG VIAL IV (22:36)
[2024-05-31 23:46] LABS: Lactate (Lactic Acid) 1.5 mmol/L (0.7-2.1)
[2024-06-01] VITALS (24 sets, daily range): BP systolic 105–198; BP diastolic 55–98; PULSE 57–76; RESP 12–28; TEMP 36.6–37; O2SAT 95–98
[2024-06-01 00:21] LABS: MRSA (Nasal) PCR NOT DETECTED (Not Detect)
[2024-06-01] MEDS: SODIUM CHLORIDE 0.9% 1,000 ML 100 ML IV ×2 (00:47→10:39)
[2024-06-01] MEDS: LACTULOSE 20 GM/30 ML SOLUTION 30 GM PO (00:48)
--- NOTE | 2024-06-01 03:27 | PM.HP.1 ---
History of Present Illness History of Present Illness Date Patient Seen: 05/31/24 Time Patient Seen: 23:00 Chief complaint: Weakness Narrative: 58 y/o with PMH of HERRING and hepatic encephalopathy, came to ER accompanied by who was concerned about her progressive generalized weakness and confusion over the past few days. She has impressive co-morbidities - chronic pain, Bipolar 1 disorder, chronic pancreatitis, DM,HTN, CKD, AMY, obesity, and she was compliant with medications. In the ED she was hypothermic and hypotensive and suspected for sepsis and she was fluid resuscitated, had central line, started on Levophed and Zosyn. She however does not have fever, leukocytosis, signs or symptoms of infection or positive images. Her ammonia level significantly elevated. Admitted for hepatic encephalopathy and suspected sepsis. 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 Obesity (BMI 30-39.9) Herniated nucleus pulposus, L4-5 Arm pain Intractable vomiting with nausea Chronic pancreatitis Acute infection of right ear Fracture of right foot Bipolar 1 disorder Acute dehydration Acute kidney injury History of pulmonary embolism Neuropathy, diabetic Arthritis Insulin dependent diabetes mellitus Chronic pain syndrome Nonalcoholic steatohepatitis (HERRING) Anxiety Major depressive disorder Renal insufficiency Hypercholesterolemia with hypertriglyceridemia Hypertension Obstructive sleep apnea of adult Type 2 diabetes mellitus Snoring Hypersomnia Episode of syncope Surgical History H/O hysterectomy for benign disease History of cholecystectomy History of appendectomy Gastrocnemius equinus of right lower extremity Right humeral fracture Lumbar post-laminectomy syndrome Family History Father COPD (chronic obstructive pulmonary disease) Mother Hypertension Sister Fibromyalgia Social History marital status: details: rasheed Gaitan household members: spouse and children lives independently: Yes caregiver/support person: No occupational status: unemployed Smoking Status: Never smoker alcohol intake: never substance use type: marijuana Meds Home Medications and Allergies Home Medications Medication Instructions Recorded Confirmed Type insulin aspart U-100 100 unit/mL 10 - 25 unit SQ TIDAC ##0 09/19/17 05/12/23 History subcutaneous solution (Novolog U-100 Insulin aspart) metoprolol succinate 100 mg 100 mg PO DAILY ##0 09/19/17 05/12/23 History tablet,extended release 24 hr (Toprol XL) omega-3 acid ethyl esters 1 gram 2 cap PO BID 04/17/19 05/12/23 History capsule metformin 500 mg tablet,extended 1,000 mg PO QAM 01/06/20 05/12/23 History release 24 hr cholecalciferol (vitamin D3) 50 50 mcg PO DAILY 11/28/20 05/12/23 History mcg (2,000 unit) capsule insulin glargine 100 unit/mL 50 unit SUBCUT QAM #0 mL 11/28/20 05/12/23 History subcutaneous solution (Lantus U-100 Insulin) ketamine 100 mg sublingual narinder 200 - 300 mg sublingual 5XD 11/28/20 05/12/23 History lamotrigine 25 mg tablet 150 mg PO DAILY 11/28/20 05/12/23 History tizanidine 2 mg tablet 4 mg PO DAILY 11/28/20 05/12/23 History lwtroy-iyvdqohi-lufinom 3 cap PO TIDWM 09/09/21 05/12/23 History 36,000-114,000-180,000 unit capsule,delay rel (Creon) buprenorphine 2 mg-naloxone 0.5 mg 1.5 tab sublingual DAILY 07/16/22 05/12/23 History sublingual tablet irbesartan 150 mg tablet 300 mg PO QAM 07/16/22 05/12/23 History lorazepam 2 mg tablet 4 mg PO TID 07/16/22 05/12/23 History oxybutynin chloride 5 mg 5 mg PO QPM 07/16/22 05/12/23 History tablet,extended release 24 hr rosuvastatin 40 mg tablet 40 mg PO QAM 07/16/22 05/12/23 History fluoxetine 20 mg capsule 60 mg PO QAM 05/12/23 05/12/23 History pbpzxt-hojewmuk-ynmzglj 3 cap PO TIDWM 05/12/23 05/12/23 History 36,000-114,000-180,000 unit capsule,delay rel (Creon) omeprazole 20 mg capsule,delayed See Rx Instructions .Route .COMPLEX 05/12/23 05/12/23 History release ziprasidone HCl 80 mg capsule 80 mg PO BID 05/12/23 05/12/23 History zolpidem 10 mg tablet 10 mg PO BEDTIME 05/12/23 05/12/23 History estradiol 0.01% (0.1 mg/gram) vaginal 03/13/24 03/13/24 History vaginal cream irbesartan 300 mg tablet 300 mg PO DAILY 03/13/24 03/13/24 History ketamine (bulk) 100 % powder ea miscellaneous 03/13/24 03/13/24 History lactulose 10 gram/15 mL oral ml PO 03/13/24 03/13/24 History solution lamotrigine 150 mg tablet 150 mg PO DAILY 03/13/24 03/13/24 History methylphenidate HCl 5 mg tablet mg PO 03/13/24 03/13/24 History mupirocin 2 % topical ointment 1 applic topical TID #15 grams 03/13/24 03/13/24 Rx nystatin 100,000 unit/mL oral PO 03/13/24 03/13/24 History suspension tizanidine 4 mg tablet 4 mg PO 3XD 03/13/24 03/13/24 History Allergies Allergy/AdvReac Type Severity Reaction Status Date / Time No Known Drug Allergies Allergy Verified 03/13/24 09:52 Review of Systems Constitutional Comments: generalized weakness, hard to walk. No fever, chills or sweats Cardiovascular Comments: w/o chest pain Respiratory Comments: w/o shortness of breath Gastrointestinal Comments: w/o abdominal pain Genitourinary Comments: w/o dysuria Exam Vital Signs (past 8 hours): - 05/31/24 19:30 05/31/24 19:30 05/31/24 19:35 Temperature 96.3 F L 96.3 F L Pulse Rate 57 L 58 L Respiratory Rate 12 12 Blood Pressure 140/81 Pulse Oximetry 96 96 Oxygen Delivery Method 05/31/24 19:35 05/31/24 19:37 05/31/24 19:37 Temperature 96.3 F L Pulse Rate 56 L Respiratory Rate 11 L Blood Pressure 140/84 141/82 H Pulse Oximetry 96 Oxygen Delivery Method 05/31/24 19:40 05/31/24 19:40 05/31/24 19:44 Temperature 96.3 F L 96.3 F L Pulse Rate 56 L 56 L Respiratory Rate 11 L 12 Blood Pressure 130/74 Pulse Oximetry 96 95 Oxygen Delivery Method 05/31/24 19:44 05/31/24 19:44 05/31/24 19:48 Temperature 96.3 F L Pulse Rate 56 L Respiratory Rate 12 Blood Pressure 129/73 129/73 Pulse Oximetry 95 Oxygen Delivery Method 05/31/24 19:48 05/31/24 19:48 05/31/24 19:52 Temperature 96.3 F L Pulse Rate 55 L Respiratory Rate 11 L Blood Pressure 124/70 124/70 Pulse Oximetry 96 Oxygen Delivery Method 05/31/24 19:52 05/31/24 19:52 05/31/24 19:59 Temperature 96.4 F L Pulse Rate 55 L Respiratory Rate 10 L Blood Pressure 117/65 117/65 Pulse Oximetry 96 Oxygen Delivery Method 05/31/24 19:59 05/31/24 20:00 05/31/24 20:00 Temperature 96.4 F L Pulse Rate 55 L Respiratory Rate 12 Blood Pressure 131/71 135/72 Pulse Oximetry 95 Oxygen Delivery Method 05/31/24 20:04 05/31/24 20:04 05/31/24 20:08 Temperature 96.4 F L 96.6 F L Pulse Rate 55 L 54 L Respiratory Rate 12 11 L Blood Pressure 123/64 Pulse Oximetry 95 96 Oxygen Delivery Method 05/31/24 20:08 05/31/24 20:12 05/31/24 20:12 Temperature 96.6 F L Pulse Rate 56 L Respiratory Rate 14 Blood Pressure 127/66 121/66 Pulse Oximetry 95 Oxygen Delivery Method 05/31/24 20:16 05/31/24 20:16 05/31/24 20:20 Temperature 96.6 F L 96.8 F L Pulse Rate 56 L 56 L Respiratory Rate 12 10 L Blood Pressure 124/71 Pulse Oximetry 96 95 Oxygen Delivery Method 05/31/24 20:20 05/31/24 20:24 05/31/24 20:24 Temperature 96.8 F L Pulse Rate 55 L Respiratory Rate 10 L Blood Pressure 128/71 125/72 Pulse Oximetry 95 Oxygen Delivery Method 05/31/24 20:28 05/31/24 20:28 05/31/24 20:30 Temperature 96.8 F L 96.8 F L Pulse Rate 56 L 58 L Respiratory Rate 11 L 10 L Blood Pressure 128/67 Pulse Oximetry 95 95 Oxygen Delivery Method 05/31/24 20:32 05/31/24 20:32 05/31/24 20:36 Temperature 96.8 F L 97.0 F L Pulse Rate 61 62 Respiratory Rate 10 L 15 Blood Pressure 140/72 Pulse Oximetry 97 96 Oxygen Delivery Method 05/31/24 20:36 05/31/24 20:40 05/31/24 20:40 Temperature 97.0 F L Pulse Rate 63 Respiratory Rate 13 Blood Pressure 138/74 143/75 H Pulse Oximetry 98 Oxygen Delivery Method 05/31/24 20:44 05/31/24 20:44 05/31/24 20:48 Temperature 97.0 F L Pulse Rate 60 Respiratory Rate 15 Blood Pressure 132/69 124/62 Pulse Oximetry 96 Oxygen Delivery Method 05/31/24 20:48 05/31/24 20:52 05/31/24 20:52 Temperature 97.2 F L 97.2 F L Pulse Rate 60 63 Respiratory Rate 14 12 Blood Pressure 121/64 Pulse Oximetry 96 97 Oxygen Delivery Method 05/31/24 20:56 05/31/24 20:56 05/31/24 21:00 Temperature 97.2 F L 97.2 F L Pulse Rate 60 60 Respiratory Rate 16 15 Blood Pressure 122/65 Pulse Oximetry 95 96 Oxygen Delivery Method 05/31/24 21:00 05/31/24 21:04 05/31/24 21:04 Temperature 97.3 F L Pulse Rate 59 L Respiratory Rate 16 Blood Pressure 122/63 122/64 Pulse Oximetry 95 Oxygen Delivery Method 05/31/24 21:08 05/31/24 21:08 05/31/24 21:12 Temperature 97.3 F L 97.3 F L Pulse Rate 59 L 59 L Respiratory Rate 15 13 Blood Pressure 122/60 Pulse Oximetry 95 96 Oxygen Delivery Method 05/31/24 21:12 05/31/24 21:16 05/31/24 21:16 Temperature 97.3 F L Pulse Rate 59 L Respiratory Rate 22 Blood Pressure 116/62 115/68 Pulse Oximetry 96 Oxygen Delivery Method 05/31/24 21:20 05/31/24 21:20 05/31/24 21:24 Temperature 97.5 F L 97.5 F L Pulse Rate 60 60 Respiratory Rate 16 19 Blood Pressure 119/67 Pulse Oximetry 96 96 Oxygen Delivery Method 05/31/24 21:24 05/31/24 21:28 05/31/24 21:28 Temperature 97.5 F L Pulse Rate 60 Respiratory Rate 17 Blood Pressure 122/66 123/65 Pulse Oximetry 96 Oxygen Delivery Method 05/31/24 21:30 05/31/24 21:32 05/31/24 21:32 Temperature 97.5 F L 97.5 F L Pulse Rate 59 L 60 Respiratory Rate 17 20 Blood Pressure 126/68 Pulse Oximetry 95 96 Oxygen Delivery Method 05/31/24 21:40 05/31/24 21:45 05/31/24 22:03 Temperature 97.9 F 97.9 F Pulse Rate 68 62 Respiratory Rate 16 11 L Blood Pressure 128/63 Pulse Oximetry 97 96 Oxygen Delivery Method Room Air 05/31/24 23:00 05/31/24 23:00 05/31/24 23:30 Temperature 97.9 F Pulse Rate 63 Respiratory Rate 12 Blood Pressure 137/76 103/55 L Pulse Oximetry 97 Oxygen Delivery Method 05/31/24 23:45 05/31/24 23:45 06/01/24 00:15 Temperature 97.9 F Pulse Rate 58 L Respiratory Rate 13 Blood Pressure 108/60 105/60 Pulse Oximetry 95 Oxygen Delivery Method 06/01/24 00:15 06/01/24 01:00 06/01/24 01:00 Temperature 97.9 F 97.9 F Pulse Rate 59 L 59 L Respiratory Rate 14 12 Blood Pressure 121/70 Pulse Oximetry 96 96 Oxygen Delivery Method 06/01/24 02:00 06/01/24 02:00 06/01/24 03:00 Temperature 98.1 F Pulse Rate 57 L Respiratory Rate 17 Blood Pressure 115/69 106/55 L Pulse Oximetry 95 Oxygen Delivery Method 06/01/24 03:00 Temperature 98.2 F Pulse Rate 61 Respiratory Rate 14 Blood Pressure Pulse Oximetry 95 Oxygen Delivery Method Oxygen Delivery Method Room Air Const Other: in no distress HENMT Other: normocephalic Eyes Other: equal pupils, EOMI, w/o scleral icterus Neck Other: supple Resp Other: poor respiratory effort Cardio Other: RRR Skin Other: not jaundiced Psych Other: encephalopathic Objective Labs 05/31/24 16:48 05/31/24 16:48 Labs: Laboratory Results - last 24 hr 05/31/24 05/31/24 05/31/24 16:48 17:36 17:48 WBC 9.1 RBC 5.22 H Hgb 14.5 Hct 43.7 MCV 83.8 MCH 27.8 MCHC 33.2 RDW 15.2 H Plt Count 180 Neut % (Auto) 78.4 H Lymph % (Auto) 13.6 L Petroleum % (Auto) 7.0 Eos % (Auto) 0.7 L Baso % (Auto) 0.3 Neut # (Auto) 7200 H Lymph # (Auto) 1200 Petroleum # (Auto) 600 Eos # (Auto) 100 Baso # (Auto) 0 PT 11.8 INR 1.0 APTT 41 H Sodium 136 L Potassium 3.6 Chloride 105 Carbon Dioxide 16 L BUN 27 H Creatinine 1.07 H Estimated GFR 59 L BUN/Creatinine Ratio 25.2 H Glucose 99 Lactate 2.9 H Calcium 10.5 H Total Bilirubin 0.7 AST 65 H ALT 69 H Alkaline Phosphatase 631 H Ammonia 92 H Total Creatine Kinase 70 Troponin I < 0.012 Total Protein 8.3 H Albumin 4.5 Globulin 3.8 Albumin/Globulin Ratio 1.2 Procalcitonin 0.357 TSH 0.083 L Urine Color Urine Appearance Urine pH Ur Specific [place] Urine Protein Urine Glucose (UA) Urine Ketones Urine Occult Blood Urine Nitrate Urine Bilirubin Urine Urobilinogen Ur Leukocyte Esterase Urine RBC Urine WBC Ur Squamous Epith Cells Urine Bacteria Ur Culture Indicated? Vol Urine Centrifuged Nasal Screen MRSA (PCR) Chlamy pneumoniae PCR Not detected Adenovirus (PCR) Not detected B. pertussis DNA (PCR) Not detected B.parapertussis DNA PCR Not detected Coronavirus OC43 (PCR) Not detected Coronavirus HKU1 (PCR) Not detected Coronavirus 229E (PCR) Not detected SARS-CoV-2 (PCR) Not detected Coronavirus NL63 (PCR) Not detected Human Metapneumovir PCR Not detected Influenza Type A (PCR) Not detected Influenza Type B (PCR) Not detected M. pneumoniae (PCR) Not detected Parainfluenza 1 (PCR) Not detected Parainfluenza 2 (PCR) Not detected Parainfluenza 3 (PCR) Not detected Parainfluenza 4 (PCR) Not detected RSV (PCR) Not detected Entero/Rhino (PCR) Not detected 05/31/24 05/31/24 05/31/24 18:48 19:01 22:15 WBC RBC Hgb Hct MCV MCH MCHC RDW Plt Count Neut % (Auto) Lymph % (Auto) Petroleum % (Auto) Eos % (Auto) Baso % (Auto) Neut # (Auto) Lymph # (Auto) Petroleum # (Auto) Eos # (Auto) Baso # (Auto) PT INR APTT Sodium Potassium Chloride Carbon Dioxide BUN Creatinine Estimated GFR BUN/Creatinine Ratio Glucose Lactate 2.3 H Calcium Total Bilirubin AST ALT Alkaline Phosphatase Ammonia Total Creatine Kinase Troponin I Total Protein Albumin Globulin Albumin/Globulin Ratio Procalcitonin TSH Urine Color Yellow Urine Appearance Clear Urine pH 7.0 Ur Specific [place] <=1.005 Urine Protein Trace H Urine Glucose (UA) Negative Urine Ketones Negative Urine Occult Blood Trace-intact Urine Nitrate Negative Urine Bilirubin Negative Urine Urobilinogen 0.2 Ur Leukocyte Esterase 1+ H Urine RBC 0-1/hpf Urine WBC 1-5/hpf Ur Squamous Epith Cells 10-30 /hpf H D Urine Bacteria Many (>30) H Ur Culture Indicated? Specimen cultured Vol Urine Centrifuged 10ml (spun) Nasal Screen MRSA (PCR) Not detected Chlamy pneumoniae PCR Adenovirus (PCR) B. pertussis DNA (PCR) B.parapertussis DNA PCR Coronavirus OC43 (PCR) Coronavirus HKU1 (PCR) Coronavirus 229E (PCR) SARS-CoV-2 (PCR) Coronavirus NL63 (PCR) Human Metapneumovir PCR Influenza Type A (PCR) Influenza Type B (PCR) M. pneumoniae (PCR) Parainfluenza 1 (PCR) Parainfluenza 2 (PCR) Parainfluenza 3 (PCR) Parainfluenza 4 (PCR) RSV (PCR) Entero/Rhino (PCR) 05/31/24 23:30 WBC RBC Hgb Hct MCV MCH MCHC RDW Plt Count Neut % (Auto) Lymph % (Auto) Petroleum % (Auto) Eos % (Auto) Baso % (Auto) Neut # (Auto) Lymph # (Auto) Petroleum # (Auto) Eos # (Auto) Baso # (Auto) PT INR APTT Sodium Potassium Chloride Carbon Dioxide BUN Creatinine Estimated GFR BUN/Creatinine Ratio Glucose Lactate 1.5 Calcium Total Bilirubin AST ALT Alkaline Phosphatase Ammonia Total Creatine Kinase Troponin I Total Protein Albumin Globulin Albumin/Globulin Ratio Procalcitonin TSH Urine Color Urine Appearance Urine pH Ur Specific [place] Urine Protein Urine Glucose (UA) Urine Ketones Urine Occult Blood Urine Nitrate Urine Bilirubin Urine Urobilinogen Ur Leukocyte Esterase Urine RBC Urine WBC Ur Squamous Epith Cells Urine Bacteria Ur Culture Indicated? Vol Urine Centrifuged Nasal Screen MRSA (PCR) Chlamy pneumoniae PCR Adenovirus (PCR) B. pertussis DNA (PCR) B.parapertussis DNA PCR Coronavirus OC43 (PCR) Coronavirus HKU1 (PCR) Coronavirus 229E (PCR) SARS-CoV-2 (PCR) Coronavirus NL63 (PCR) Human Metapneumovir PCR Influenza Type A (PCR) Influenza Type B (PCR) M. 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: Status: Acute (4) Insulin dependent diabetes mellitus: Status: Chronic (5) Bipolar 1 disorder: Status: Chronic (6) Chronic pain syndrome: Status: Chronic (7) GERD (gastroesophageal reflux disease): Status: Acute (8) Benzodiazepine dependence, continuous: Status: Acute Assessment & Plan narrative: Hepatic Encephalopathy - HERRING with cirrhosis - on 10 g of lactulose daily, for 1 BM, according to encephalopathic patient - not reliable - increased lactulose Hypotension - able to report average SBP of around 80 ore 90, when she randomly checks at home - she was likely at the baseline with her BP on admission to ED - levophed discontinued upon admission to ICU, after 11 PM. Since then, her average SBP is 110-115 with none < 105. This on 100 cc of NS - doubt sepsis, not continuing abx DM - metformin GERD - PPI Chronic Pancreatitis / insufficiency - Creon Chronic Pain - buprenorphine Bipolar D. - Geodon DVT prophylaxis - heparin Time-Based Coding :: [TOTAL MINUTES] spent with patient and on the chart (including review of chart, obtaining history, exam, reviewing outside data, placing orders, documenting exam and treatment plan, and counseling patient) on [DATE].
[2024-06-01 05:21] LABS: Add Manual Diff / Slide Review NO; Basophils Absolute Auto 0 /uL (0-100); Basophils Percent Auto 0.3 % (0-2); Eosinophils Absolute Auto 100 /uL (0-450); Eosinophils Percent Auto 0.9 % (2-4); Hematocrit 37.1 % (36-46); Hemoglobin 12.3 g/dL (12.0-16.0); Lymphocytes Absolute Auto 800 /uL (1100-4500); Mean Corpuscular HGB Conc 33.2 % (30-36); Mean Corpuscular Hemoglobin 27.8 PG (26-34); Mean Corpuscular Volume 83.7 fL (80-100); Monocytes Absolute Auto 400 /uL (0-900); Monocytes Percent Auto 6.6 % (3-14); Neutrophils Absolute Auto 4700 /uL (1500-7000); Neutrophils Percent Auto 79.2 % (50-75); Platelet Count 125 X10^3/uL (150-400); Red Blood Cell Count 4.43 X10^6/uL (4.0-5.2); White Blood Cell Count 5.9 X10^3/uL (4.5-11.0)
[2024-06-01 05:37] LABS: Alanine Aminotransferase 51 IU/L (<35); Albumin 3.6 g/dL (3.5-5.0); Albumin Globulin Ratio 1.2 (1.0-2.8); Alkaline Phosphatase 500 U/L (38-126); Aspartate Aminotransferase 57 IU/L (14-36); BUN Creatinine Ratio 26.3 (6-22); Bilirubin Total 0.7 mg/dL (0.2-1.3); Blood Urea Nitrogen 21 mg/dL (7-17); Carbon Dioxide 19 mmol/L (22-32); Chloride 113 mmol/L (98-107); Estimated Glomerular Filt Rate > 60 mL/min (>60); Glucose 122 mg/dL (80-110); HEMOLYSIS < 15 (0-50); Potassium 3.8 mmol/L (3.4-5.1); Sodium 138 mmol/L (137-145); Total Protein 6.6 g/dL (6.3-8.2)
--- NOTE | 2024-06-01 06:27 | PC.ADMIT ---
[email or web address] Admission Note: The patient,Sheela Brown,58 y/o, was given written information regarding hospital policies, unit procedures and contact persons. Patient's smoking status: Never smoker. Vital Signs - 8 hr 05/31/24 23:00 05/31/24 23:00 05/31/24 23:30 Temperature 97.9 F Pulse Rate 63 Respiratory Rate 12 Blood Pressure 137/76 103/55 L Pulse Oximetry 97 05/31/24 23:45 05/31/24 23:45 06/01/24 00:15 Temperature 97.9 F Pulse Rate 58 L Respiratory Rate 13 Blood Pressure 108/60 105/60 Pulse Oximetry 95 06/01/24 00:15 06/01/24 01:00 06/01/24 01:00 Temperature 97.9 F 97.9 F Pulse Rate 59 L 59 L Respiratory Rate 14 12 Blood Pressure 121/70 Pulse Oximetry 96 96 06/01/24 02:00 06/01/24 02:00 06/01/24 03:00 Temperature 98.1 F Pulse Rate 57 L Respiratory Rate 17 Blood Pressure 115/69 106/55 L Pulse Oximetry 95 06/01/24 03:00 06/01/24 03:15 06/01/24 03:15 Temperature 98.2 F 98.2 F Pulse Rate 61 60 Respiratory Rate 14 12 Blood Pressure 113/61 Pulse Oximetry 95 95 06/01/24 04:01 06/01/24 04:01 06/01/24 05:01 Temperature 98.6 F 98.4 F Pulse Rate 66 68 Respiratory Rate 15 13 Blood Pressure 140/70 Pulse Oximetry 96 97 06/01/24 05:01 Temperature Pulse Rate Respiratory Rate Blood Pressure 149/83 H Pulse Oximetry Patient admitted to ICU room 230 at 2140. Drowsy, oriented to place, year, and situation, able to answer most questions. Levophed infusing at 0.05mcg/kg/min, titrated off at 0230, BP stable-see vital trends. SB/SR. PO lactulose given, had soft brown BM, able to transfer to [facility] with SBA. A/O x4 by am, talk to on phone.
--- NOTE | 2024-06-01 08:23 | P.PN_ITS ---
Subjective Subjective Interval history: Admitted with HERRING and hepatic encephalopathy. She had a central line placed, feel she may have been dehydrated. No fevers or chills, or evidence of infection here. Blood cultures are negative. Urine is negative. S: She feels better today. Less confusion. No pain or dyspnea. She denies recent missed lactulose for reduction in doses at home. No recent melena, fevers or chills. Exam Vital Signs (past 8 hours): - 06/01/24 01:00 06/01/24 01:00 06/01/24 02:00 Temperature 97.9 F 98.1 F Pulse Rate 59 L 57 L Respiratory Rate 12 17 Blood Pressure 121/70 Pulse Oximetry 96 95 Oxygen Delivery Method 06/01/24 02:00 06/01/24 03:00 06/01/24 03:00 Temperature 98.2 F Pulse Rate 61 Respiratory Rate 14 Blood Pressure 115/69 106/55 L Pulse Oximetry 95 Oxygen Delivery Method 06/01/24 03:15 06/01/24 03:15 06/01/24 04:01 Temperature 98.2 F Pulse Rate 60 Respiratory Rate 12 Blood Pressure 113/61 140/70 Pulse Oximetry 95 Oxygen Delivery Method 06/01/24 04:01 06/01/24 05:01 06/01/24 05:01 Temperature 98.6 F 98.4 F Pulse Rate 66 68 Respiratory Rate 15 13 Blood Pressure 149/83 H Pulse Oximetry 96 97 Oxygen Delivery Method 06/01/24 06:00 06/01/24 06:00 06/01/24 07:00 Temperature 98.4 F Pulse Rate 64 Respiratory Rate 15 Blood Pressure 120/59 L 129/65 Pulse Oximetry 96 Oxygen Delivery Method 06/01/24 07:00 06/01/24 07:00 Temperature 98.4 F Pulse Rate 64 Respiratory Rate 14 Blood Pressure Pulse Oximetry 96 Oxygen Delivery Method Room Air Oxygen Delivery Method Room Air Narrative Exam Narrative: NAD, alert and oriented. Fluent speech. She was processing relatively quickly. Lungs are clear, normal rate and effort. Heart is regular, no murmur gallop or rub. Abdomen is soft, non distended. Extremities are free of edema. Objective Labs 06/01/24 05:05 06/01/24 05:05 Labs: Laboratory Results - last 24 hr 05/31/24 05/31/24 05/31/24 16:48 17:36 17:48 WBC 9.1 RBC 5.22 H Hgb 14.5 Hct 43.7 MCV 83.8 MCH 27.8 MCHC 33.2 RDW 15.2 H Plt Count 180 Neut % (Auto) 78.4 H Lymph % (Auto) 13.6 L [place] % (Auto) 7.0 Eos % (Auto) 0.7 L Baso % (Auto) 0.3 Neut # (Auto) 7200 H Lymph # (Auto) 1200 [place] # (Auto) 600 Eos # (Auto) 100 Baso # (Auto) 0 PT 11.8 INR 1.0 APTT 41 H Sodium 136 L Potassium 3.6 Chloride 105 Carbon Dioxide 16 L BUN 27 H Creatinine 1.07 H Estimated GFR 59 L BUN/Creatinine Ratio 25.2 H Glucose 99 Lactate 2.9 H Calcium 10.5 H Total Bilirubin 0.7 AST 65 H ALT 69 H Alkaline Phosphatase 631 H Ammonia 92 H Total Creatine Kinase 70 Troponin I < 0.012 Total Protein 8.3 H Albumin 4.5 Globulin 3.8 Albumin/Globulin Ratio 1.2 Procalcitonin 0.357 TSH 0.083 L Urine Color Urine Appearance Urine pH Ur Specific [place] Urine Protein Urine Glucose (UA) Urine Ketones Urine Occult Blood Urine Nitrate Urine Bilirubin Urine Urobilinogen Ur Leukocyte Esterase Urine RBC Urine WBC Ur Squamous Epith Cells Urine Bacteria Ur Culture Indicated? Vol Urine Centrifuged Nasal Screen MRSA (PCR) Chlamy pneumoniae PCR Not detected Adenovirus (PCR) Not detected B. pertussis DNA (PCR) Not detected B.parapertussis DNA PCR Not detected Coronavirus OC43 (PCR) Not detected Coronavirus HKU1 (PCR) Not detected Coronavirus 229E (PCR) Not detected SARS-CoV-2 (PCR) Not detected Coronavirus NL63 (PCR) Not detected Human Metapneumovir PCR Not detected Influenza Type A (PCR) Not detected Influenza Type B (PCR) Not detected M. pneumoniae (PCR) Not detected Parainfluenza 1 (PCR) Not detected Parainfluenza 2 (PCR) Not detected Parainfluenza 3 (PCR) Not detected Parainfluenza 4 (PCR) Not detected RSV (PCR) Not detected Entero/Rhino (PCR) Not detected 05/31/24 05/31/24 05/31/24 18:48 19:01 22:15 WBC RBC Hgb Hct MCV MCH MCHC RDW Plt Count Neut % (Auto) Lymph % (Auto) [place] % (Auto) Eos % (Auto) Baso % (Auto) Neut # (Auto) Lymph # (Auto) [place] # (Auto) Eos # (Auto) Baso # (Auto) PT INR APTT Sodium Potassium Chloride Carbon Dioxide BUN Creatinine Estimated GFR BUN/Creatinine Ratio Glucose Lactate 2.3 H Calcium Total Bilirubin AST ALT Alkaline Phosphatase Ammonia Total Creatine Kinase Troponin I Total Protein Albumin Globulin Albumin/Globulin Ratio Procalcitonin TSH Urine Color Yellow Urine Appearance Clear Urine pH 7.0 Ur Specific [place] <=1.005 Urine Protein Trace H Urine Glucose (UA) Negative Urine Ketones Negative Urine Occult Blood Trace-intact Urine Nitrate Negative Urine Bilirubin Negative Urine Urobilinogen 0.2 Ur Leukocyte Esterase 1+ H Urine RBC 0-1/hpf Urine WBC 1-5/hpf Ur Squamous Epith Cells 10-30 /hpf H D Urine Bacteria Many (>30) H Ur Culture Indicated? Specimen cultured Vol Urine Centrifuged 10ml (spun) Nasal Screen MRSA (PCR) Not detected Chlamy pneumoniae PCR Adenovirus (PCR) B. pertussis DNA (PCR) B.parapertussis DNA PCR Coronavirus OC43 (PCR) Coronavirus HKU1 (PCR) Coronavirus 229E (PCR) SARS-CoV-2 (PCR) Coronavirus NL63 (PCR) Human Metapneumovir PCR Influenza Type A (PCR) Influenza Type B (PCR) M. pneumoniae (PCR) Parainfluenza 1 (PCR) Parainfluenza 2 (PCR) Parainfluenza 3 (PCR) Parainfluenza 4 (PCR) RSV (PCR) Entero/Rhino (PCR) 05/31/24 06/01/24 23:30 05:05 WBC 5.9 RBC 4.43 Hgb 12.3 Hct 37.1 MCV 83.7 MCH 27.8 MCHC 33.2 RDW 15.0 H Plt Count 125 L Neut % (Auto) 79.2 H Lymph % (Auto) 13.0 L [place] % (Auto) 6.6 Eos % (Auto) 0.9 L Baso % (Auto) 0.3 Neut # (Auto) 4700 Lymph # (Auto) 800 L [place] # (Auto) 400 Eos # (Auto) 100 Baso # (Auto) 0 PT INR APTT Sodium 138 Potassium 3.8 Chloride 113 H Carbon Dioxide 19 L BUN 21 H Creatinine 0.80 Estimated GFR > 60 BUN/Creatinine Ratio 26.3 H Glucose 122 H Lactate 1.5 Calcium 9.0 Total Bilirubin 0.7 AST 57 H ALT 51 H Alkaline Phosphatase 500 H Ammonia Total Creatine Kinase Troponin I Total Protein 6.6 Albumin 3.6 Globulin 3.0 Albumin/Globulin Ratio 1.2 Procalcitonin TSH Urine Color Urine Appearance Urine pH Ur Specific [place] Urine Protein Urine Glucose (UA) Urine Ketones Urine Occult Blood Urine Nitrate Urine Bilirubin Urine Urobilinogen Ur Leukocyte Esterase Urine RBC Urine WBC Ur Squamous Epith Cells Urine Bacteria Ur Culture Indicated? Vol Urine Centrifuged Nasal Screen MRSA (PCR) Chlamy pneumoniae PCR Adenovirus (PCR) B. pertussis DNA (PCR) B.parapertussis DNA PCR Coronavirus OC43 (PCR) Coronavirus HKU1 (PCR) Coronavirus 229E (PCR) SARS-CoV-2 (PCR) Coronavirus NL63 (PCR) Human Metapneumovir PCR Influenza Type A (PCR) Influenza Type B (PCR) M. 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 Obesity (BMI 30-39.9) Herniated nucleus pulposus, L4-5 Arm pain Intractable vomiting with nausea Chronic pancreatitis Acute infection of right ear Fracture of right foot Bipolar 1 disorder Acute dehydration Acute kidney injury History of pulmonary embolism Neuropathy, diabetic Arthritis Insulin dependent diabetes mellitus Chronic pain syndrome Nonalcoholic steatohepatitis (HERRING) Anxiety Major depressive disorder Renal insufficiency Hypercholesterolemia with hypertriglyceridemia Hypertension Obstructive sleep apnea of adult Type 2 diabetes mellitus Snoring Hypersomnia Episode of syncope Surgical History H/O hysterectomy for benign disease History of cholecystectomy History of appendectomy Gastrocnemius equinus of right lower extremity Right humeral fracture Lumbar post-laminectomy syndrome Family History Father COPD (chronic obstructive pulmonary disease) Mother Hypertension Sister Fibromyalgia Social History marital status: details: rasheed Gaitan household members: spouse and children lives independently: Yes caregiver/support person: No occupational status: unemployed Smoking Status: Never smoker alcohol intake: never substance use type: marijuana Assessment & Plan Assessment & Plan narrative: 1. Hepatic Encephalopathy, present on admission and improving. - HERRING with cirrhosis - on 10 g of lactulose daily, for 1 BM, according to encephalopathic patient - not reliable - increased lactulose 2. Hypotension, present on admission and improving. - able to report average SBP of around 80 ore 90, when she randomly checks at home - she was likely at the baseline with her BP on admission to ED - levophed discontinued upon admission to ICU, after 11 PM. Since then, her average SBP is 110-115 with none < 105. This on 100 cc of NS - doubt sepsis, not continuing abx 3. DM, active and stable. - metformin 4. GERD, active and stable. - PPI 5. Chronic Pancreatitis / insufficiency, active and stable. - Creon 6. Chronic Pain, active and stable. - buprenorphine 7. Bipolar D, active and stable. - [place] PLAN: -continue lactulose. -monitor mental status. -OOB DVT prophylaxis - heparin Time-Based Coding :: [TOTAL MINUTES] spent with patient and on the chart (including review of chart, obtaining history, exam, reviewing outside data, placing orders, documenting exam and treatment plan, and counseling patient) on [DATE].
[2024-06-01] MEDS: LACTULOSE 20 GM/30 ML SOLUTION PO (08:46)
[2024-06-01] MEDS: METFORMIN XR 500 MG TABLET 1000 MG PO (08:47)
[2024-06-01] MEDS: PANTOPRAZOLE 40 MG VIAL IV (08:47)
[2024-06-01] MEDS: HEPARIN 5,000 UNIT/ML VIAL 5000 UNIT SUBCUT (08:47)
[2024-06-01] MEDS: LIPASE PO ×2 (09:18→12:20)
[2024-06-01] MEDS: INSULIN GLARGINE 100 UNIT/ML 3ML PEN 40 UNIT SUBCUT (09:18)
[2024-06-01] MEDS: PROTEASE PO ×2 (09:18→12:20)
[2024-06-01] MEDS: BUPRENORPHINE NALOXONE 1.5 EACH SL (09:18)
[2024-06-01] MEDS: AMYLASE PO ×2 (09:18→12:20)
--- NOTE | 2024-06-01 10:21 | PC.NURSE ---
Addendum entered by Gabrielle Higgins R.N. 06/01/24 15:11: Pt and spouse agreeable to discharge. IJ and IV discontinued. Education provided on UTI, stroke signs and symptoms, worsening symptoms. Pt has follow up scheduled for tomorrow with primary care doctor. Pt wheeled via wc by this RN to private vehicle at approximately 1440. Original Note: Pt A&Ox4, calm and cooperative. Spouse at bedside. Pt SBA w/ FWW to BR, slightly unsteady gait. Lee catheter d/c'd at 1000, due to void at 1800.
--- NOTE | 2024-06-01 11:56 | PT.IIE ---
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 (05/31/24) Surgical History (Last Reviewed 06/01/24 @ 08:25 by Reg Corrigan MD) Gastrocnemius equinus of right lower extremity H/O hysterectomy for benign disease History of appendectomy History of cholecystectomy Lumbar post-laminectomy syndrome Right humeral fracture Medical History (Last Reviewed 06/01/24 @ 08:25 by Reg Corrigan MD) Acute dehydration Acute infection of right ear Acute kidney injury Anxiety Arm pain Arthritis Benzodiazepine dependence, continuous Bipolar 1 disorder Chronic pain syndrome Chronic pancreatitis Episode of syncope Fracture of right foot GERD (gastroesophageal reflux disease) Herniated nucleus pulposus, L4-5 History of pulmonary embolism Hypercholesterolemia with hypertriglyceridemia Hypersomnia Hypertension Incontinence of urine Insulin dependent diabetes mellitus Intractable vomiting with nausea Major depressive disorder 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 Neuropathy, diabetic Nonalcoholic steatohepatitis (HERRING) Obesity (BMI 30-39.9) Obstructive sleep apnea of adult Opiate dependence, continuous Renal insufficiency Snoring Type 2 diabetes mellitus Physical Therapy Inpatient Evaluation/Re-Eval M1 PT/OT-IP Prior Functional Status Start: 06/01/24 11:27 Freq: NEEDED Status: Active Protocol: Document 06/01/24 11:30 MB (Rec: 06/01/24 11:56 MB [id number]) Medical Review Prior Functional Status Medical History Reviewed Yes Diet/Fluid Consistency Regular Communication WNLs Mobility and Gait Uses RW or rollator at night Activities of Daily Living and IADL's I, does not drive Social History Household Members spouse,children Living Arrangements House Number of Floors (Floors) Two Floors Number of Stairs To Enter/Railing? 4 steps with B rails to enter, flight of steps to upstairs in home Home Environment High Toilet,Walk in Shower, Built-In Shower Seat Home Equipment Front Wheel Walker,Four Wheel Walker,Hand Held Shower,Grab Bars Near Toilet,Grab Bars In Shower Employment Status Retired M2 PT-IP Current Condition Start: 06/01/24 11:27 Freq: NEEDED Status: Active Protocol: Document 06/01/24 11:30 MB (Rec: 06/01/24 11:56 MB [id number]) Physical Therapy Current Condition Current Condition Evaluation Date 06/01/24 Treatment Diagnosis HERRING and hepatic encephalopathy M3 PT-IP Subjective Start: 06/01/24 11:27 Freq: NEEDED Status: Active Protocol: Document 06/01/24 11:30 MB (Rec: 06/01/24 11:56 MB [id number]) Subjective Physical Therapy Visit Type Type Initial Evaluation Visit Start Time 11:30 Visit Stop Time 11:48 Number of TRANSPORT MEDIC Visits 0 Physical Therapy Visit Comments Patient Comments Pt is agreeable to PT. Therapy Pain Assessment Pain When Pain Assessed At Rest Pain Present Pain Present Denied Pain M4 PT-IP Mobility and Gait Start: 06/01/24 11:27 Freq: NEEDED Status: Active Protocol: Document 06/01/24 11:30 MB (Rec: 06/01/24 11:56 MB [id number]) PT-Bed Mobility Assessment Rolling Type of Rolling Roll to Left Level of Assist Standby Assistance Supine to Sit Supine to Sit Standby Assistance,1 Person Assistance,Bedrails Scooting Scooting to Edge of Bed Standby Assistance PT-Transfer Assessment Sit to and From Stand Sit to and from Stand Standby Assistance,1 Person Assistance,Use of Upper Extremities Equipment Transfer Assistive Device Gait Belt,Front Wheeled Walker Orthotic/Prosthetic Devices or Brace: No Transfers Transfer Destination Chair Transfer Technique Ambulation Transfer Ability Level of Assist Standby Assistance,1 Person Assistance,Use of Upper Extremities Gait Assessment Gait Gait Assistance Required: Contact Guard Assist Distance (Feet) 5 Able to Maintain Weight Bearing Status Yes During Gait Assistive Devices Assistive Device Gait Belt,Front Wheeled Walker Orthotic/Prosthetic Devices or Brace: No Gait Deviations General Gait Pattern Flexed Trunk,Wide Based Gait Factors Limiting Gait Function Factors Limiting Gait Function Decreased Activity Tolerance, Poor Balance PT-Balance Assessment Sitting Balance and Reactions Static Sitting Balance Ability Good Dynamic Sitting Balance Ability Good Standing Balance and Reactions Static Standing Balance Ability Good Dynamic Standing Balance Ability Fair Device Used RW M5 PT-IP Objective Assessments Start: 06/01/24 11:27 Freq: NEEDED Status: Active Protocol: Document 06/01/24 11:30 MB (Rec: 06/01/24 11:56 [id number]) Orientation Orientation/Cognition Level of Alertness Alert Orientation Name,Age,Birthday,Month,Date, Year,Day of Week,Place Language Function Ability No Deficits Noted Safety Awareness Decreased Safety Awareness Memory Description No Deficits Noted Gross Range of Motion Upper Extremity ROM Assessment Within Functional Limits Lower Extremity ROM Assessment Within Functional Limits Strength Upper Extremity Strength Assessment Within Functional Limits Lower Extremity Strength Assessment Within Functional Limits Coordination Assessment Assessment Coordination Comments Slow mobility, movement Sensation Assessment Comments Sensation Comments NT Muscle Tone Muscle Tone WNL Yes M7 PT-IP Assessment and Plan Start: 06/01/24 11:27 Freq: NEEDED Status: Active Protocol: Document 06/01/24 11:30 MB (Rec: 06/01/24 11:56 [id number]) PT Summary Assessment and Plan Potential Rehabilitation Potential Good Status of Condition at Evaluation Evolving Summary Impairments Balance,Coordination,Bed Mobility,Transfers,Gait Progress Towards Goals Progressing Toward Goals Assessment Summary Pt is a 58 y/o female adm with HERRING and hepatic encephalopathy. She lives with and son. Son works and is with her during the day. She has had 1-2 falls per report and uses walker at night. CGA for mobility on eval today. She may benefit from HHPT safety consult at d/c. Goals Bed Mobility Goal Independent Transfer Goal Independent,Front Wheeled Walker,Four Wheeled Walker Gait Goal Independent,Front Wheel Walker ,Four Wheel Walker Gait Distance 100 Other Goals Pt will ascend and descend 4 steps with rail and no more than CGA to allow safe home entrance. Days to Meet Goals 5 Frequency of Treatment Frequency Of Treatment Once a Day Treatment Plan Physical Therapy Treatment Plan Bed Mobility Training,Transfer Training,Gait Training, Therapeutic Exercise,Balance Retraining,Discharge Planning, Hot or Cold Pack,Neuromuscular Re-ed,Coordination Retraining ,Manual Therapy Recommendations To Nursing Amount of Assist Needed Standby Assistance Discharge Recommendations PT Discharge Recommendations Home with Assistance,Home Health Transportation Needs at Discharge Private Vehicle
--- NOTE | 2024-06-01 12:08 | CM.DANOTE ---
DCP Assessment note pt is a 58 y/o F with PMH of HERRING, chronic pain, BPD1, chronic pancreatitis, and other complications here with hepatic encephalopathy. PCP Helen Gipson and self pay [employer] TECHNICIAN reviewed EMR. pt lives in [place] with spouse Sourav. Per PT, rec home with assistance vs HH. per hospitalist, anticipate dc tomorrow? per RN report, pt mentation cleared up significantly, now A/O. 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 Pt confirms having all the DME she needs, walkers/canes/wheelchair. report spouse helps her manage and assists as needed at home. Deny any CM needs at this time. P: anticipate home with OP f/u when medically stable. no identified barriers to safe dc home at this time, CM team will continue to follow in case any DCP needs arise. MIGDALIA Choe Discharge Planning/Care Management CM Discharge Assessment Start: 06/01/24 12:07 Freq: Status: Active Protocol: Document 06/01/24 12:07 (Rec: 06/01/24 12:08 [id number]) Discharge Planning Assessment Assigned Cafe Assistant MIGDALIA Park DPOA/Assigned Designee Name Sourav, spouse Contact Information [phone] Advance Directives? No Advance Directives on File No History Provided By Patient,Significant Other, Medical Record Prior Living Arrangements House Household Members spouse,children Independent with ADL's Yes Is patient alert and oriented? Yes DME Already Rented / Owned FWW / Walker,Cane Comment Met w/pt today, explained SW/ DCP role. Pt explains she lives at home w/family and her is extremely supportive. Discharge Plan Home Transportation Arrangement Spouse Referrals Initiated None needed Additional Comment Patient/spouse deny the need for HH Review Status In Process Please Provide Date Initial DC 06/01/24 Assessment Was Performed Next Review Type Continued Stay Review
[2024-06-01] MEDS: INSULIN LISPRO 100 UNIT/ML 3ML VIAL SUBCUT (12:17)
--- NOTE | 2024-06-01 14:16 | PM.DS.1 ---
History of Present Illness History of Present Illness Chief complaint: Weakness Narrative: From H&P: 58 y/o with PMH of HERRING and hepatic encephalopathy, came to ER accompanied by who was concerned about her progressive generalized weakness and confusion over the past few days. She has impressive co-morbidities - chronic pain, Bipolar 1 disorder, chronic pancreatitis, DM,HTN, CKD, AMY, obesity, and she was compliant with medications. In the ED she was hypothermic and hypotensive and suspected for sepsis and she was fluid resuscitated, had central line, started on Levophed and Zosyn. She however does not have fever, leukocytosis, signs or symptoms of infection or positive images. Her ammonia level significantly elevated. Admitted for hepatic encephalopathy and suspected sepsis. Discharge Providers Provider Date of admission: 05/31/24 20:12 Discharge Date: 06/01/24 Primary care physician: Helen Smith MD Consults: 06/01/24 09:16 Consult to Physical Therapy Evaluate & Treat Comment: Physician Instructions: Evaluate and Treat Discharge provider: Reg Corrigan MD Summary Hospital Course Discharge Diagnosis: 1. Hepatic Encephalopathy, present on admission and improving. - HERRING with cirrhosis - on 10 g of lactulose daily, for 1 BM, according to encephalopathic patient - not reliable - increased lactulose 2. Hypotension, present on admission and improving. - able to report average SBP of around 80 ore 90, when she randomly checks at home - she was likely at the baseline with her BP on admission to ED - levophed discontinued upon admission to ICU, after 11 PM. Since then, her average SBP is 110-115 with none < 105. This on 100 cc of NS - doubt sepsis, not continuing abx 3. UTI, present on admission and improving. 4. DM, active and stable. - metformin 5. GERD, active and stable. - PPI 6. Chronic Pancreatitis / insufficiency, active and stable. - Creon 7. Chronic Pain, active and stable. - buprenorphine 8. Bipolar D, active and stable. - [facility] Hospital Course: Patient has a history of HERRING and presented with hypotension and altered mental status. She takes lactulose 60 g t.i.d. and has not missed recent doses. No melena or blood per rectum. The ED she would negative imaging was given lactulose and has improved over the next 12 hours. She came off from pressors and was treated with Zosyn empirically. Blood cultures remained negative. UA was concerning for UTI with WBCs and bacteria. Culture was negative at the time of discharge. We will cover with 5 days empiric antibiotics and follow cultures. She was able to ambulate and I met with her and her prior to discharge. No changes to her chronic medication dosing. A central line was placed upon arrival this is removed prior to discharge. Status at Discharge Cognitive/behavioral status at discharge: oriented Functional status at discharge: independent ambulation Overall status at discharge: patient is back to baseline Time Spent with Patient Time spent: Greater than 30 minutes Exam Vital Signs (past 8 hours): - 06/01/24 07:00 06/01/24 07:00 06/01/24 07:00 Temperature 98.4 F Pulse Rate 64 Respiratory Rate 14 Blood Pressure 129/65 Pulse Oximetry 96 Oxygen Delivery Method Room Air 06/01/24 07:30 06/01/24 08:00 06/01/24 08:01 Temperature 98.4 F 98.6 F Pulse Rate 65 68 Respiratory Rate 22 28 H Blood Pressure 159/80 H Pulse Oximetry 96 97 Oxygen Delivery Method 06/01/24 08:01 06/01/24 08:30 06/01/24 09:00 Temperature 98.6 F 98.6 F 98.6 F Pulse Rate 68 72 71 Respiratory Rate 21 17 16 Blood Pressure Pulse Oximetry 97 98 96 Oxygen Delivery Method 06/01/24 09:30 06/01/24 10:00 06/01/24 10:01 Temperature 98.6 F 98.6 F 98.6 F Pulse Rate 71 71 71 Respiratory Rate 17 21 19 Blood Pressure Pulse Oximetry 95 95 98 Oxygen Delivery Method 06/01/24 10:01 06/01/24 10:14 06/01/24 10:14 Temperature Pulse Rate 76 Respiratory Rate 20 Blood Pressure 198/94 H 177/94 H Pulse Oximetry 97 Oxygen Delivery Method 06/01/24 10:30 06/01/24 11:00 06/01/24 11:30 Temperature Pulse Rate 69 69 65 Respiratory Rate 12 15 17 Blood Pressure Pulse Oximetry 96 96 96 Oxygen Delivery Method 06/01/24 11:50 06/01/24 11:50 06/01/24 11:51 Temperature Pulse Rate 70 68 Respiratory Rate 26 H 21 Blood Pressure 194/98 H Pulse Oximetry 97 97 Oxygen Delivery Method 06/01/24 11:51 06/01/24 12:00 Temperature 98.0 F Pulse Rate 70 Respiratory Rate 13 Blood Pressure 170/90 H Pulse Oximetry 96 Oxygen Delivery Method Oxygen Delivery Method Room Air Narrative Exam Narrative: NAD, alert and oriented. Fluent speech. Lungs are clear, normal rate and effort. Heart is regular, no murmur gallop or rub. Abdomen is soft, non distended. Extremities are free of edema. Objective Labs 06/01/24 05:05 06/01/24 05:05 Labs: Laboratory Results - last 24 hr 05/31/24 05/31/24 05/31/24 16:48 17:36 17:48 WBC 9.1 RBC 5.22 H Hgb 14.5 Hct 43.7 MCV 83.8 MCH 27.8 MCHC 33.2 RDW 15.2 H Plt Count 180 Neut % (Auto) 78.4 H Lymph % (Auto) 13.6 L [place] % (Auto) 7.0 Eos % (Auto) 0.7 L Baso % (Auto) 0.3 Neut # (Auto) 7200 H Lymph # (Auto) 1200 [place] # (Auto) 600 Eos # (Auto) 100 Baso # (Auto) 0 PT 11.8 INR 1.0 APTT 41 H Sodium 136 L Potassium 3.6 Chloride 105 Carbon Dioxide 16 L BUN 27 H Creatinine 1.07 H Estimated GFR 59 L BUN/Creatinine Ratio 25.2 H Glucose 99 Lactate 2.9 H Calcium 10.5 H Total Bilirubin 0.7 AST 65 H ALT 69 H Alkaline Phosphatase 631 H Ammonia 92 H Total Creatine Kinase 70 Troponin I < 0.012 Total Protein 8.3 H Albumin 4.5 Globulin 3.8 Albumin/Globulin Ratio 1.2 Procalcitonin 0.357 TSH 0.083 L Urine Color Urine Appearance Urine pH Ur Specific [place] Urine Protein Urine Glucose (UA) Urine Ketones Urine Occult Blood Urine Nitrate Urine Bilirubin Urine Urobilinogen Ur Leukocyte Esterase Urine RBC Urine WBC Ur Squamous Epith Cells Urine Bacteria Ur Culture Indicated? Vol Urine Centrifuged Nasal Screen MRSA (PCR) Chlamy pneumoniae PCR Not detected Adenovirus (PCR) Not detected B. pertussis DNA (PCR) Not detected B.parapertussis DNA PCR Not detected Coronavirus OC43 (PCR) Not detected Coronavirus HKU1 (PCR) Not detected Coronavirus 229E (PCR) Not detected SARS-CoV-2 (PCR) Not detected Coronavirus NL63 (PCR) Not detected Human Metapneumovir PCR Not detected Influenza Type A (PCR) Not detected Influenza Type B (PCR) Not detected M. pneumoniae (PCR) Not detected Parainfluenza 1 (PCR) Not detected Parainfluenza 2 (PCR) Not detected Parainfluenza 3 (PCR) Not detected Parainfluenza 4 (PCR) Not detected RSV (PCR) Not detected Entero/Rhino (PCR) Not detected 05/31/24 05/31/24 05/31/24 18:48 19:01 22:15 WBC RBC Hgb Hct MCV MCH MCHC RDW Plt Count Neut % (Auto) Lymph % (Auto) [place] % (Auto) Eos % (Auto) Baso % (Auto) Neut # (Auto) Lymph # (Auto) [place] # (Auto) Eos # (Auto) Baso # (Auto) PT INR APTT Sodium Potassium Chloride Carbon Dioxide BUN Creatinine Estimated GFR BUN/Creatinine Ratio Glucose Lactate 2.3 H Calcium Total Bilirubin AST ALT Alkaline Phosphatase Ammonia Total Creatine Kinase Troponin I Total Protein Albumin Globulin Albumin/Globulin Ratio Procalcitonin TSH Urine Color Yellow Urine Appearance Clear Urine pH 7.0 Ur Specific [place] <=1.005 Urine Protein Trace H Urine Glucose (UA) Negative Urine Ketones Negative Urine Occult Blood Trace-intact Urine Nitrate Negative Urine Bilirubin Negative Urine Urobilinogen 0.2 Ur Leukocyte Esterase 1+ H Urine RBC 0-1/hpf Urine WBC 1-5/hpf Ur Squamous Epith Cells 10-30 /hpf H D Urine Bacteria Many (>30) H Ur Culture Indicated? Specimen cultured Vol Urine Centrifuged 10ml (spun) Nasal Screen MRSA (PCR) Not detected Chlamy pneumoniae PCR Adenovirus (PCR) B. pertussis DNA (PCR) B.parapertussis DNA PCR Coronavirus OC43 (PCR) Coronavirus HKU1 (PCR) Coronavirus 229E (PCR) SARS-CoV-2 (PCR) Coronavirus NL63 (PCR) Human Metapneumovir PCR Influenza Type A (PCR) Influenza Type B (PCR) M. pneumoniae (PCR) Parainfluenza 1 (PCR) Parainfluenza 2 (PCR) Parainfluenza 3 (PCR) Parainfluenza 4 (PCR) RSV (PCR) Entero/Rhino (PCR) 05/31/24 06/01/24 23:30 05:05 WBC 5.9 RBC 4.43 Hgb 12.3 Hct 37.1 MCV 83.7 MCH 27.8 MCHC 33.2 RDW 15.0 H Plt Count 125 L Neut % (Auto) 79.2 H Lymph % (Auto) 13.0 L [place] % (Auto) 6.6 Eos % (Auto) 0.9 L Baso % (Auto) 0.3 Neut # (Auto) 4700 Lymph # (Auto) 800 L [place] # (Auto) 400 Eos # (Auto) 100 Baso # (Auto) 0 PT INR APTT Sodium 138 Potassium 3.8 Chloride 113 H Carbon Dioxide 19 L BUN 21 H Creatinine 0.80 Estimated GFR > 60 BUN/Creatinine Ratio 26.3 H Glucose 122 H Lactate 1.5 Calcium 9.0 Total Bilirubin 0.7 AST 57 H ALT 51 H Alkaline Phosphatase 500 H Ammonia Total Creatine Kinase Troponin I Total Protein 6.6 Albumin 3.6 Globulin 3.0 Albumin/Globulin Ratio 1.2 Procalcitonin TSH Urine Color Urine Appearance Urine pH Ur Specific [place] Urine Protein Urine Glucose (UA) Urine Ketones Urine Occult Blood Urine Nitrate Urine Bilirubin Urine Urobilinogen Ur Leukocyte Esterase Urine RBC Urine WBC Ur Squamous Epith Cells Urine Bacteria Ur Culture Indicated? Vol Urine Centrifuged Nasal Screen MRSA (PCR) Chlamy pneumoniae PCR Adenovirus (PCR) B. pertussis DNA (PCR) B.parapertussis DNA PCR Coronavirus OC43 (PCR) Coronavirus HKU1 (PCR) Coronavirus 229E (PCR) SARS-CoV-2 (PCR) Coronavirus NL63 (PCR) Human Metapneumovir PCR Influenza Type A (PCR) Influenza Type B (PCR) M. 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 Obesity (BMI 30-39.9) Herniated nucleus pulposus, L4-5 Arm pain Intractable vomiting with nausea Chronic pancreatitis Acute infection of right ear Fracture of right foot Bipolar 1 disorder Acute dehydration Acute kidney injury History of pulmonary embolism Neuropathy, diabetic Arthritis Insulin dependent diabetes mellitus Chronic pain syndrome Nonalcoholic steatohepatitis (HERRING) Anxiety Major depressive disorder Renal insufficiency Hypercholesterolemia with hypertriglyceridemia Hypertension Obstructive sleep apnea of adult Type 2 diabetes mellitus Snoring Hypersomnia Episode of syncope Surgical History H/O hysterectomy for benign disease History of cholecystectomy History of appendectomy Gastrocnemius equinus of right lower extremity Right humeral fracture Lumbar post-laminectomy syndrome Family History Father COPD (chronic obstructive pulmonary disease) Mother Hypertension Sister Fibromyalgia Social History marital status: details: rasheed Gaitan household members: spouse and children lives independently: Yes caregiver/support person: No occupational status: unemployed Smoking Status: Never smoker alcohol intake: never substance use type: marijuana Discharge Assessment & Plan Assessment and Plan Assessment: 1. Hepatic Encephalopathy, present on admission and resolved. - HERRING with cirrhosis 2. Hypotension, present on admission and resolved. - able to report average SBP of around 80 ore 90, when she randomly checks at home - she was likely at the baseline with her BP on admission to ED - levophed discontinued upon admission to ICU, after 11 PM. Since then, her average SBP is 110-115 with none < 105. This on 100 cc of NS - doubt sepsis, not continuing abx 3. DM, active and stable. - metformin 4. GERD, active and stable. - PPI 5. Chronic Pancreatitis / insufficiency, active and stable. - Creon 6. Chronic Pain, active and stable. - buprenorphine 7. Bipolar D, active and stable. - [place] Plan of Treatment: She was stable for discharge home. We will use cephalexin q.i.d. for 5 days for possible UTI given that her UA positive for WBCs, leukocyte esterase, and bacteria. Culture is pending at the time of this discharge. Discharge Plan Discharge Plan Patient Disposition: Home Provider Discharge Comment: Stable for discharge home. Her blood pressures normalized with fluids and her mental status is back to normal. Discharge orders & Medications Prescriptions: New cephalexin 500 mg capsule 500 mg PO QID Qty: 20 0RF Continued methylphenidate HCl 5 mg tablet 30 mg PO DAILY lactulose 10 gram/15 mL solution 60 ml PO TID irbesartan 300 mg tablet 300 mg PO DAILY lamotrigine 150 mg tablet 150 mg PO DAILY estradiol 0.01 % (0.1 mg/gram) cream 1 applic vaginal WEEKLY metoprolol succinate [Toprol XL] 100 MG tablet extended release 24 hr 100 mg PO DAILY Qty: 0 Rx Instructions: 8am insulin aspart U-100 [Novolog U-100 Insulin aspart] 100 UNIT/1 ML solution 10 - 25 unit SQ TIDAC Qty: 0 Rx Instructions: sliding scale Lantus U-100 Insulin 100 unit/mL solution 50 unit SUBCUT QAM Qty: 0 ketamine 100 mg narinder 200 - 300 mg sublingual 5XD MDD 16 capsules Rx Instructions: uses rectally tizanidine 2 mg tablet 4 mg PO DAILY Rx Instructions: 1929 cholecalciferol (vitamin D3) 50 mcg (2,000 unit) capsule 50 mcg PO DAILY omega-3 acid ethyl esters 1 gram Capsule 2 cap PO BID Rx Instructions: 8am, 5pm buprenorphine-naloxone 2-0.5 mg tablet, sublingual 1.5 tab SUBLINGUAL DAILY oxybutynin chloride 5 mg tablet extended release 24hr 5 mg PO QPM Rx Instructions: 5pm rosuvastatin 40 mg tablet 40 mg PO QAM lorazepam 2 MG tablet 4 mg PO TID Rx Instructions: 7am, 12pm, 5pm metformin 500 mg tablet extended release 24 hr 1,000 mg PO BID ziprasidone HCl 80 mg capsule 80 mg PO BID fluoxetine 20 mg capsule 40 mg PO BID zolpidem 10 mg Tablet 10 mg PO BEDTIME Rx Instructions: 1929 Creon 36,000-114,000- 180,000 unit capsule,delayed release(DR/EC) 3 cap PO TIDWM methylphenidate HCl 5 mg Tablet 20 mg PO PRN PRN (Reason: ADHD) Rx Instructions: as needed in afternoon Medication counseling provided by Pharmacist: No Follow up/Referrals: Helen Smith MD [Primary Care Provider] - Discharge Health Status Multidrug resistant organism: No MDRO Diet/Activity/Treatments Diet: Carb-consistent/Diabetic Visit Report/Discharge Packet Instructions: DI for Urinary Tract Infection (UTI), DI for Hepatic Encephalopathy Stand Alone Forms: Patient Portal/API, Stroke Signs & Symptoms Discharge Data Primary Care Provider: Helen Smith
== END 2024-06-01 14:40 | disposition home or self-care (01) | DRG 442 ==
LOC: ED 20:10 → AC 20:12 → ICU 21:33
PROVIDERS: Emergency Medicine; Admitting Provider Internal Medicine; Emergency Provider Student in an Organized Health Care Education/Training Program; Family Provider Internal Medicine; PCP Internal Medicine; Referring Provider Student in an Organized Health Care Education/Training Program; Visit Provider Internal Medicine
DX: K76.82 Hepatic encephalopathy (principal); F13.20 Sedative, hypnotic or anxiolytic dependence, uncomplicated; K86.1 Other chronic pancreatitis; N39.0 Urinary tract infection, site not specified; K75.81 Nonalcoholic steatohepatitis (NASH); K74.60 Unspecified cirrhosis of liver; E11.9 Type 2 diabetes mellitus without complications; F31.9 Bipolar disorder, unspecified; G89.4 Chronic pain syndrome; K21.9 Gastro-esophageal reflux disease without esophagitis; I95.9 Hypotension, unspecified; R79.89 Other specified abnormal findings of blood chemistry; I10 Essential (primary) hypertension; E78.00 Pure hypercholesterolemia, unspecified; F41.9 Anxiety disorder, unspecified; Z79.84 Long term (current) use of oral hypoglycemic drugs; Z79.4 Long term (current) use of insulin
CPT/HCPCS: 36415; 36556; 70450; 71045; 71260; 74177; 80053; 81001; 82140; 82550; 82962; 83605; 84145; 84443; 84484; 85025; 85610; 85730; 87040; 87086; 87633; 87797; 96365; 96366; 96367; 97161; 99285; J1644; J2470; J2543; Q9967

== ENCOUNTER → 2024-10-15 11:44 | Outpatient (CLI) | payer OTHER, SELFPAY ==
[2024-05-31 22:48] VITALS: BMI 28.4
--- NOTE | 2024-10-15 11:46 | DI.MG.S_ITS ---
MM screening mammo BI: 10/15/2024. BI-RADS: 1 CLINICAL: 59-year old female for bilateral screening mammogram. Tyrer-Cuzick lifetime risk of 6.1%. No personal or first-degree family history of breast cancer. PRIOR EXAMS 10/07/2023, 05/30/2019. MAMMOGRAPHY TECHNIQUE: The examination is limited by clinical circumstance. 2D and 3D (tomosynthesis) digital mammographic views obtained, with additional images as needed for full coverage. Current study was also evaluated with a Computer Aided Detection (CAD) system. DENSITY B. There are scattered areas of fibroglandular density. MAMMOGRAPHY FINDINGS Bilateral: No suspicious mass, asymmetry, microcalcification, or other abnormality seen. No significant change from comparison. IMPRESSION: * No evidence of malignancy. RECOMMENDATIONS Bilateral * Annual screening mammography. OVERALL ASSESSMENT CATEGORY BI-RADS-1: Negative. The [place] [employer] recommends annual screening mammography beginning at age 40 for women with average risk of breast cancer. ELECTRONICALLY SIGNED: Alecia Roman M.D. on 10/16/2024 at 11:24:37 AM PT Interpreting Station ID: [id number]
== END ==
PROVIDERS: Family Provider Internal Medicine; PCP Internal Medicine; Referring Provider Internal Medicine; Visit Provider Internal Medicine
DX: Z12.31 Encounter for screening mammogram for malignant neoplasm of breast (principal)
CPT/HCPCS: 77063; 77067

== ENCOUNTER 2024-10-18 09:16 | Observation (INO) | payer OTHER, SELFPAY ==
[2024-05-31 22:48] VITALS: BMI 28.4
[2024-10-18] VITALS (14 sets, daily range): BP systolic 92–142; BP diastolic 60–86; PULSE 59–70; RESP 12–18; TEMP 36–36.4; O2SAT 92–99; BMI 28.2
--- NOTE | 2024-10-18 09:48 | EKG_ITS ---
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
--- NOTE | 2024-10-18 09:53 | ED_ITS ---
HPI - General Adult General Chief complaint: Altered Mental Status Stated complaint: Falls x 2 within 24 hours/poss toe fx Time Seen by Provider: 10/18/24 09:26 Source: patient, RN notes reviewed and old records reviewed Mode of arrival: Family Vehicle History of Present Illness HPI narrative: 59-year-old female history of insulin-dependent diabetes, chronic pancreatitis,HERRING with known cirrhosis, bipolar disorder, hypertension who presents with complaint of decreased mentation and becoming more sleepy over the last several days. Patient and family at bedside note that she was just not been herself she has been more sleepy for several days and kind of decreasing mentation. Fell yesterday landed straight onto her foot has had right toe pain and bruising. She tripped and fell today again possibly hitting her head. No fevers reported patient denies headache no neck pain, no chest pain or shortness of breath. She was not had any nausea or vomiting. She has not had any diarrhea or constipation. Notes it is typically has about 4 bowel movements daily with her lactulose but only had 1 yesterday. Patient has not had any black or bloody stools. No dysuria urgency or frequency. No reported allergies. Has been notes that she recently had Xifaxan added 2 weeks ago to her medication regimen and she has been tapering down her buprenorphine. Denies any prior surgeries. Is following with Dr. Guo with Gastroenterology at [facility]. Dr. Helen childs as her primary care physician. Home medications include metformin, fluoxetine, lorazepam, oxybutynin, ketamine for pain and mood disorder, metoprolol, lamotrigine, Ziprasidone, Xifaxan, your losartan, methylphenidate, zolpidem PRN, rosuvastatin, buprenorphine/naloxone, Creon, [place] threes, lactulose 40 g by mouth t.i.d., famotidine, Unisom, insulin glargine 40 units in the morning and insulin Humalog 1 unit for 3 g carbs. Related Data Home Medications Medication Instructions Recorded Confirmed insulin aspart U-100 100 unit/mL 10 - 25 unit SQ TIDAC ##0 09/19/17 06/01/24 subcutaneous solution (Novolog U-100 Insulin aspart) metoprolol succinate 100 mg 100 mg PO DAILY ##0 09/19/17 06/01/24 tablet,extended release 24 hr (Toprol XL) omega-3 acid ethyl esters 1 gram 2 cap PO BID 04/17/19 06/01/24 capsule metformin 500 mg tablet,extended 1,000 mg PO BID 01/06/20 06/01/24 release 24 hr cholecalciferol (vitamin D3) 50 50 mcg PO DAILY 11/28/20 06/01/24 mcg (2,000 unit) capsule insulin glargine 100 unit/mL 50 unit SUBCUT QAM #0 mL 11/28/20 06/01/24 subcutaneous solution (Lantus U-100 Insulin) ketamine 100 mg sublingual narinder 200 - 300 mg sublingual 5XD 11/28/20 06/01/24 tizanidine 2 mg tablet 4 mg PO DAILY 11/28/20 06/01/24 buprenorphine 2 mg-naloxone 0.5 mg 1.5 tab sublingual DAILY 07/16/22 06/01/24 sublingual tablet lorazepam 2 mg tablet 4 mg PO TID 07/16/22 06/01/24 oxybutynin chloride 5 mg 5 mg PO QPM 07/16/22 06/01/24 tablet,extended release 24 hr rosuvastatin 40 mg tablet 40 mg PO QAM 07/16/22 06/01/24 fluoxetine 20 mg capsule 40 mg PO BID 05/12/23 06/01/24 [id number]-[id number] 3 cap PO TIDWM 05/12/23 06/01/24 36,000-114,000-180,000 unit capsule,delay rel (Creon) ziprasidone HCl 80 mg capsule 80 mg PO BID 05/12/23 06/01/24 zolpidem 10 mg tablet 10 mg PO BEDTIME 05/12/23 06/01/24 estradiol 0.01% (0.1 mg/gram) 1 applic vaginal WEEKLY 03/13/24 06/01/24 vaginal cream irbesartan 300 mg tablet 300 mg PO DAILY 03/13/24 06/01/24 lactulose 10 gram/15 mL oral 60 ml PO TID 03/13/24 06/01/24 solution lamotrigine 150 mg tablet 150 mg PO DAILY 03/13/24 06/01/24 methylphenidate HCl 5 mg tablet 30 mg PO DAILY 03/13/24 06/01/24 methylphenidate HCl 5 mg tablet 20 mg PO PRN PRN ADHD 06/01/24 06/01/24 Previous Rx's Medication Instructions Recorded cephalexin 500 mg capsule 500 mg PO QID #20 caps 06/01/24 Allergies Allergy/AdvReac Type Severity Reaction Status Date / Time No Known Drug Allergies Allergy Verified 03/13/24 09:52 Review of Systems Review of Systems ROS Unobtainable: All systems reviewed & are unremarkable except as noted in HPI and below Patient History Medical History Incontinence of urine GERD (gastroesophageal reflux disease) Benzodiazepine dependence, continuous Opiate dependence, continuous 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 Obesity (BMI 30-39.9) Herniated nucleus pulposus, L4-5 Arm pain Intractable vomiting with nausea Chronic pancreatitis Acute infection of right ear Fracture of right foot Bipolar 1 disorder Acute dehydration Acute kidney injury History of pulmonary embolism Neuropathy, diabetic Arthritis Insulin dependent diabetes mellitus Chronic pain syndrome Nonalcoholic steatohepatitis (HERRING) Anxiety Major depressive disorder Renal insufficiency Hypercholesterolemia with hypertriglyceridemia Hypertension Obstructive sleep apnea of adult Type 2 diabetes mellitus Snoring Hypersomnia Episode of syncope Surgical History H/O hysterectomy for benign disease History of cholecystectomy History of appendectomy Gastrocnemius equinus of right lower extremity Right humeral fracture Lumbar post-laminectomy syndrome Family History Father COPD (chronic obstructive pulmonary disease) Mother Hypertension Sister Fibromyalgia Social History marital status: details: [facility] household members: spouse and children lives independently: Yes caregiver/support person: No occupational status: unemployed Smoking Status: Never smoker alcohol intake: never substance use type: marijuana Smoking Status: Never smoker alcohol intake frequency: holidays/special occasions only Exam Narrative Exam Narrative: GEN:Patient appears in moderate distress. Patient answers questions appropriately but appears sleepy and falls asleep easily. HEAD: Patient has some greenish ecchymosis of the left upper forehead/temporal area, no raccoon/Wise sign. NECK: Nontender, painless range of motion, trachea midline Positive Nexus criteria, no midline line tenderness, distracting injury, positive for altered mental status, no neuro deficit, recent EtOH. EYES: PERRLA, EOMI ENT: External inspection normal, trachea is midline, TM's are normal no hemotypanum, Nares are clear, no septal hematoma, no dental or oral injury, airway is normal and with normal occlusion, No bony tenderness RESP: Chest is nontender and has symmetric movement, no ecchymosis, breath sounds are normal no crackles, wheezes or rales CVS: Heart sounds are normal, no murmur noted, No JVD. ABG/GI: Nontender, soft, normal bowel sounds, no distention, no organomegaly, pelvic rock is negative NEURO: Oriented AOx3, neuro is grossly intact, sensation and motor is normal all 4 extremities moving, cranial nerves II through XII are intact, GCS is 15 PSYCH: Normal mood and affect SKIN: Intact, warm and dry, no crepitus and without decubitus BACK: No CVA tenderness, no vertebral tenderness, no step-off's, no crepitus EXT: Patient's right great toe is ecchymotic she was minimally tender to palpation has good range of motion no other bony tenderness to the foot, nail appears to be intact. hips are nontender, no pedal edema, normal color and temperature, normal range of motion of extremities with normal tendon exam, 2+ pulses in all four extremities Initial Vital Signs Initial Vital Signs: Vital Signs Pulse Rate 67 10/18/24 09:48 Pulse Oximetry 93 10/18/24 09:48 Course Orders Ordered: ED Orders 10/18/24 09:53 Acetaminophen Stat Ammonia (NH3) Stat Complete Blood Count AUTO DIFF Stat Comprehensive Metabolic Panel Stat Ethanol (ETOH) Stat Lactate (Lactic Acid) Stat PTT Partial Thromboplastin Hitesh Stat Procalcitonin Stat Prothrombin Time INR Stat Salicylate Stat Thyroid Stimulating Hormone Stat 10/18/24 09:58 XR chest 1V Stat EKG-12 Lead Stat 10/18/24 10:00 CT cervical spine wo con Stat CT head/brain wo con Stat XR toe RT min 2V Stat 10/18/24 11:30 Blood Culture Stat 10/18/24 11:44 Urinalysis and Microscopic Stat Urine Drug Screen, Rapid Stat Discontinued Medications Sodium Chloride (Normal Saline 0.9%) 1,000 mls @ 1,000 mls/hr IV BOLUS ONE Stop: 10/18/24 10:59 Last Admin: 10/18/24 10:13 Dose: 1,000 mls/hr Documented By: SHAQ Ceftriaxone Sodium 1,000 mg/ (Sodium Chloride) 100 mls @ 200 mls/hr IV NOW ONE Stop: 10/18/24 13:04 Last Admin: 10/18/24 13:18 Dose: 200 mls/hr Lactulose (Lactulose 20 Gm/30 Ml Solution) 20 gm PO NOW ONE Stop: 10/18/24 10:34 Last Admin: 10/18/24 10:57 Dose: 20 gm Documented By: SHAQ Vital Signs Vital signs: Vital Signs - 8 hr 10/18/24 09:48 10/18/24 09:51 10/18/24 09:55 Temperature 96.8 F L Pulse Rate 67 70 68 Respiratory Rate 18 Blood Pressure 107/65 Pulse Oximetry 93 93 94 Oxygen Delivery Method Room Air 10/18/24 09:55 10/18/24 09:56 10/18/24 09:56 Temperature Pulse Rate 67 Respiratory Rate 16 Blood Pressure 96/60 95/60 Pulse Oximetry 95 Oxygen Delivery Method 10/18/24 10:00 10/18/24 10:00 10/18/24 10:30 Temperature Pulse Rate 66 61 Respiratory Rate 12 15 Blood Pressure 92/60 Pulse Oximetry 92 93 Oxygen Delivery Method 10/18/24 11:00 10/18/24 11:30 10/18/24 12:00 Temperature Pulse Rate 62 61 60 Respiratory Rate 17 14 15 Blood Pressure Pulse Oximetry 97 99 97 Oxygen Delivery Method 10/18/24 12:30 10/18/24 13:00 Temperature Pulse Rate 59 L 59 L Respiratory Rate 15 14 Blood Pressure Pulse Oximetry 97 96 Oxygen Delivery Method Medical Decision Making Lab Data 10/18/24 09:53 10/18/24 09:53 Labs: Lab Results 10/18/24 10/18/24 10/18/24 Range/Units 09:53 11:44 11:44 WBC 5.0 (4.5-11.0) X10^3/uL RBC 4.65 (4.0-5.2) X10^6/uL Hgb 13.3 (12.0-16.0) g/dL Hct 39.3 (36-46) % MCV 84.6 (80-100) fL MCH 28.6 (26-34) PG MCHC 33.8 (30-36) % RDW 14.9 H (11.6-14.8) % Plt Count 103 L (150-400) X10^3/uL Neut % (Auto) 80.1 H (50-75) % Lymph % (Auto) 12.0 L (25-40) % Chambers % (Auto) 6.3 (3-14) % Eos % (Auto) 1.0 L (2-4) % Baso % (Auto) 0.6 (0-2) % Neut # (Auto) 4000 (8044-2406) /uL Lymph # (Auto) 600 L (0810-8502) /uL Chambers # (Auto) 300 (0-900) /uL Eos # (Auto) 100 (0-450) /uL Baso # (Auto) 0 (0-100) /uL PT 12.5 (9.4-12.5) SECONDS INR 1.1 (0.9-1.3) APTT 37 H (25.1-36.5) SECONDS Sodium 136 L (137-145) mmol/L Potassium 3.9 (3.4-5.1) mmol/L Chloride 102 (98-107) mmol/L Carbon Dioxide 20 L (22-32) mmol/L BUN 16 (7-17) mg/dL Creatinine 0.85 (0.52-1.04) mg/dL Estimated GFR > 60 (>60) mL/min BUN/Creatinine Ratio 18.8 (6-22) Glucose 266 H (80-110) mg/dL Lactate 3.3 H (0.7-2.1) mmol/L Calcium 9.5 (8.4-10.2) mg/dL Total Bilirubin 0.7 (0.2-1.3) mg/dL AST 127 H (14-36) IU/L ALT 105 H (<35) IU/L Alkaline Phosphatase 456 H (38-126) U/L Ammonia 38 H (9-30) umol/L Total Protein 7.3 (6.3-8.2) g/dL Albumin 4.3 (3.5-5.0) g/dL Globulin 3.0 (1.7-4.1) g/dL Albumin/Globulin Ratio 1.4 (1.0-2.8) Procalcitonin 0.184 (<0.5) ng/mL TSH < 0.015 L (0.47-4.68) uIU/mL Urine Color Yellow Urine Appearance Clear Urine pH 6.0 Normal (4.5-8.0) Ur Specific [place] 1.010 (1.000-1.035) Urine Protein Trace H (Negative) Urine Glucose (UA) Negative (Negative) g/dL Urine Ketones Negative (NEGATIVE) Urine Occult Blood Negative (Negative) Urine Nitrate Negative (Negative) Urine Bilirubin Negative (NEGATIVE) Urine Urobilinogen 0.2 (0.2) E.U./dL Ur Leukocyte Esterase Negative (NEGATIVE) Urine RBC None seen (0-5/HPF) Urine WBC 0-1/hpf (0-5/HPF) Ur Squamous Epith Cells 0-1 /hpf D (0-5/HPF) Urine Bacteria Many (>30) H (None) Ur Culture Indicated? Cult not indicated Vol Urine Centrifuged 10ml (spun) Salicylates < 1.0 (<20) mg/dL U Opiates 300ng/mL cut Negative (Negative) Ur Oxycodone Screen Negative (Negative) Urine Methadone Screen Negative (Negative) Acetaminophen < 10 (10-30) ug/mL Ur Barbiturates Screen Negative (Negative) U Tricyclic Antidepress Negative (Negative) Ur Phencyclidine Scrn Negative (Negative) Ur Amphetamines Screen Negative (Negative) U Methamphetamines Scrn Negative (Negative) Ur MDMA Scrn (Ecstasy) Negative (Negative) U Benzodiazepines Scrn Positive H (Negative) Urine Cocaine Screen Negative (Negative) U Marijuana (THC) Screen Negative (Negative) Urine Specific [place] Normal (Normal) Ethyl Alcohol < 10 ( - 10) mg/dL Ur Creatinine Normal (Normal) 03/30/25 Range/Units 12:20 WBC (4.5-11.0) X10^3/uL RBC (4.0-5.2) X10^6/uL Hgb (12.0-16.0) g/dL Hct (36-46) % MCV (80-100) fL MCH (26-34) PG MCHC (30-36) % RDW (11.6-14.8) % Plt Count (150-400) X10^3/uL Neut % (Auto) (50-75) % Lymph % (Auto) (25-40) % Chambers % (Auto) (3-14) % Eos % (Auto) (2-4) % Baso % (Auto) (0-2) % Neut # (Auto) (4944-4349) /uL Lymph # (Auto) (2693-0198) /uL Chambers # (Auto) (0-900) /uL Eos # (Auto) (0-450) /uL Baso # (Auto) (0-100) /uL PT (9.4-12.5) SECONDS INR (0.9-1.3) APTT (25.1-36.5) SECONDS Sodium (137-145) mmol/L Potassium (3.4-5.1) mmol/L Chloride (98-107) mmol/L Carbon Dioxide (22-32) mmol/L BUN (7-17) mg/dL Creatinine (0.52-1.04) mg/dL Estimated GFR (>60) mL/min BUN/Creatinine Ratio (6-22) Glucose (80-110) mg/dL Lactate 3.1 H (0.7-2.1) mmol/L Calcium (8.4-10.2) mg/dL Total Bilirubin (0.2-1.3) mg/dL AST (14-36) IU/L ALT (<35) IU/L Alkaline Phosphatase (38-126) U/L Ammonia (9-30) umol/L Total Protein (6.3-8.2) g/dL Albumin (3.5-5.0) g/dL Globulin (1.7-4.1) g/dL Albumin/Globulin Ratio (1.0-2.8) Procalcitonin (<0.5) ng/mL TSH (0.47-4.68) uIU/mL Urine Color Urine Appearance Urine pH (4.5-8.0) Ur Specific [place] (1.000-1.035) Urine Protein (Negative) Urine Glucose (UA) (Negative) g/dL Urine Ketones (NEGATIVE) Urine Occult Blood (Negative) Urine Nitrate (Negative) Urine Bilirubin (NEGATIVE) Urine Urobilinogen (0.2) E.U./dL Ur Leukocyte Esterase (NEGATIVE) Urine RBC (0-5/HPF) Urine WBC (0-5/HPF) Ur Squamous Epith Cells (0-5/HPF) Urine Bacteria (None) Ur Culture Indicated? Vol Urine Centrifuged Salicylates (<20) mg/dL U Opiates 300ng/mL cut (Negative) Ur Oxycodone Screen (Negative) Urine Methadone Screen (Negative) Acetaminophen (10-30) ug/mL Ur Barbiturates Screen (Negative) U Tricyclic Antidepress (Negative) Ur Phencyclidine Scrn (Negative) Ur Amphetamines Screen (Negative) U Methamphetamines Scrn (Negative) Ur MDMA Scrn (Ecstasy) (Negative) U Benzodiazepines Scrn (Negative) Urine Cocaine Screen (Negative) U Marijuana (THC) Screen (Negative) Urine Specific [place] (Normal) Ethyl Alcohol ( - 10) mg/dL Ur Creatinine (Normal) Point of Care Testing Glucose POC 276 Point of care testing: Point of Care Testing Glucose POC 276 MDM Narrative Medical decision making narrative: 59-year-old female with known history of cirrhosis suspect patient may have hepatic encephalopathy we will obtain labs including ammonia level but also look for other sources she has had 2 falls recently 1 where she possibly hit her head has a little bit of what looks like older ecchymosis so head CT and C-spine were obtained as well patient does have obvious bruising on her toe so x-ray to evaluate for fracture. Labs show normal white count hemoglobin platelets are 103 slightly down but was 125 in May of 2024 predominance of neutrophils, INR is 1.1 sodium is 136 CO2 is 20 potassium and chloride are appropriate BUN creatinine are normal at 0.85 glucose is 266 lactate was 3.3 repeat 3.1. bilirubin is 0.7 AST ALT are slightly up from last at 127. and 105 with a alk-phos of 146. Ammonia is elevated at 38, TSH is less than 0.015 with a procalcitonin of 0.84. Tylenol, salicylate ETOH are negative. UA shows bacteria 1 white cell 1 squamous. EKG shows sinus rhythm rate of 67 NM 166 QRS of 94 QTC of [address] elevation or depression noted Head CT no acute change CT C-spine no displaced fracture or traumatic subluxation Chest x-ray shows no acute change Toe x-ray no acute fracture or dislocation there is a linear radiopaque foreign body between the 4th and 5th metatarsal heads measures 8 x 1 mm additional surgical clips over the tarsals suspicious for retained needle. This is not over the area of patient's discomfort. Share this information with the patient and family. Patient states that is from her surgery there was no incision that is site but she was insistent there isn't incision over the tarsal bone. We will try to also share with her but may have retained foreign body versus postsurgical change but does not seem as consistent with postsurgical. Spoke with her has been who states she did not have surgery in that area discussed it is probably retained foreign body possibly she was stepped on something at some point. There is no redness there was no warmth there was no pain so discussed does not require intervention unless it becomes problematic. Patient received fluids and lactulose here in the department Spoke with Dr. Corrigan hospitalist we will accept for observation. Discharge Plan Departure Patient Disposition: Admitted as Observation Clinical Impression: Hepatic encephalopathy Admit Date/Time: 10/18/24 13:08 Admit Provider: Reg Corrigan
--- NOTE | 2024-10-18 09:58 | DI.RAD.S_ITS ---
PROCEDURE: XR CHEST 1V INDICATIONS: altered mental status TECHNIQUE: One view of the chest was acquired. COMPARISON: [facility], CR, XR CHEST 1V, 05/31/2024, 20:30. [facility], CR, XR CHEST 1V, 05/31/2024, 17:30. FINDINGS: Surgical changes and devices: None. Lungs and pleura: Lungs are clear. No pleural effusions or pneumothorax. Mediastinum: Mediastinal contours appear normal. Heart size is normal. Bones and chest wall: No suspicious bony lesions. Overlying soft tissues appear unremarkable. IMPRESSION: No acute cardiopulmonary abnormality is seen. Dictated by: Jamie Cristobal M.D. on 10/18/2024 at 10:29 Approved by: Jamie Cristobal M.D. on 10/18/2024 at 10:29
--- NOTE | 2024-10-18 10:00 | DI.RAD.S_ITS ---
PROCEDURE: XR TOE RT MIN 2V INDICATIONS: fall, bruising R great toe pain TECHNIQUE: 1 views of the 1st toe(s) acquired. COMPARISON: None. FINDINGS: Bones: No fractures or dislocations. No suspicious bony lesions. Soft tissues: No suspicious soft tissue densities. Linear, radiopaque foreign body projects between the 4th and 5th metatarsal heads. This measures 8 x 1 millimeter. Additional surgical clip projects over the tarsals. IMPRESSION: No acute bony abnormality. 8 x 1 millimeter radiopaque foreign body projecting between the 4th and 5th metatarsal heads, suspicious for a retained needle. Dictated by: Jamie Cristobal M.D. on 10/18/2024 at 10:30 Approved by: Jamie Cristobal M.D. on 10/18/2024 at 10:32
--- NOTE | 2024-10-18 10:00 | DI.CT.S_ITS ---
PROCEDURE: CT CERVICAL SPINE WO CON INDICATIONS: altered mental status, hx cirrhosis, hit head/fall TECHNIQUE: Noncontrast 3 mm thick sections acquired from the skull base to the T4 level. Sagittal and coronal reformats were then constructed. For radiation dose reduction, the following was used: automated exposure control, adjustment of mA and/or kV according to patient size. COMPARISON: None. FINDINGS: Image quality: Excellent. Bones: No fractures or dislocations. Visualized superior ribs are intact. Soft tissues: Prevertebral soft tissues are normal in thickness. No paravertebral hematomas. No apical pneumothoraces. IMPRESSION: No displaced fracture or traumatic subluxation. Dictated by: Jamie Cristobal M.D. on 10/18/2024 at 10:44 Approved by: Jamie Cristobal M.D. on 10/18/2024 at 10:44
--- NOTE | 2024-10-18 10:00 | DI.CT.S_ITS ---
PROCEDURE: CT HEAD/BRAIN WO CON INDICATIONS: altered mental status, hx cirrhosis, hit head/fall TECHNIQUE: Noncontrast 4.5 mm thick angled axial sections acquired from the foramen magnum to the vertex, with coronal and sagittal reformats. For radiation dose reduction, the following was used: automated exposure control, adjustment of mA and/or kV according to patient size. COMPARISON: [facility], CT, CT HEAD/BRAIN WO CON, 05/31/2024, 17:50. FINDINGS: Image quality: Diagnostic. CSF spaces: Basal cisterns are patent. No extra-axial fluid collections. Ventricles are normal in size and shape. Brain: No midline shift. No intracranial masses or hemorrhage. [place]-white matter interface is normal. Skull and face: Calvarium and visualized facial bones are intact, without suspicious lesions. Sinuses: Visualized sinuses and mastoids are clear. IMPRESSION: No acute intracranial pathology. Dictated by: Jamie Cristobal M.D. on 10/18/2024 at 10:45 Approved by: Jamie Cristobal M.D. on 10/18/2024 at 10:45
[2024-10-18 10:05] LABS: Add Manual Diff / Slide Review NO; Basophils Absolute Auto 0 /uL (0-100); Basophils Percent Auto 0.6 % (0-2); Eosinophils Absolute Auto 100 /uL (0-450); Hematocrit 39.3 % (36-46); Hemoglobin 13.3 g/dL (12.0-16.0); Lymphocytes Absolute Auto 600 /uL (1100-4500); Mean Corpuscular HGB Conc 33.8 % (30-36); Mean Corpuscular Hemoglobin 28.6 PG (26-34); Mean Corpuscular Volume 84.6 fL (80-100); Monocytes Absolute Auto 300 /uL (0-900); Monocytes Percent Auto 6.3 % (3-14); Neutrophils Absolute Auto 4000 /uL (1500-7000); Neutrophils Percent Auto 80.1 % (50-75); Platelet Count 103 X10^3/uL (150-400); Red Blood Cell Count 4.65 X10^6/uL (4.0-5.2); Red Cell Distribution Width 14.9 % (11.6-14.8)
[2024-10-18] MEDS: SODIUM CHLORIDE 0.9% 1,000 ML 1000 ML IV (10:13)
[2024-10-18 10:16] LABS: Alanine Aminotransferase 105 IU/L (<35); Albumin 4.3 g/dL (3.5-5.0); Albumin Globulin Ratio 1.4 (1.0-2.8); Alkaline Phosphatase 456 U/L (38-126); Ammonia (NH3) 38 umol/L (9-30); Aspartate Aminotransferase 127 IU/L (14-36); BUN Creatinine Ratio 18.8 (6-22); Bilirubin Total 0.7 mg/dL (0.2-1.3); Blood Urea Nitrogen 16 mg/dL (7-17); Calcium 9.5 mg/dL (8.4-10.2); Carbon Dioxide 20 mmol/L (22-32); Chloride 102 mmol/L (98-107); Estimated Glomerular Filt Rate > 60 mL/min (>60); Glucose 266 mg/dL (80-110); HEMOLYSIS < 15 (0-50); Potassium 3.9 mmol/L (3.4-5.1); Sodium 136 mmol/L (137-145); Total Protein 7.3 g/dL (6.3-8.2)
[2024-10-18 10:26] LABS: INR 1.1 (0.9-1.3); Prothrombin Time 12.5 SECONDS (9.4-12.5)
[2024-10-18 10:28] LABS: Lactate (Lactic Acid) 3.3 mmol/L (0.7-2.1)
[2024-10-18 10:29] LABS: Acetaminophen < 10 ug/mL (10-30); Ethanol (ETOH) < 10 mg/dL; PTT Partial Thromboplastin Tim 37 SECONDS (25.1-36.5); Salicylate < 1.0 mg/dL (<20)
[2024-10-18 10:46] LABS: Procalcitonin 0.184 ng/mL (<0.5)
[2024-10-18] MEDS: LACTULOSE 20 GM/30 ML SOLUTION PO (10:57)
[2024-10-18 11:00] LABS: Thyroid Stimulating Hormone < 0.015 uIU/mL (0.47-4.68)
[2024-10-18 11:52] LABS: Reflexed Lactate in 2 Hours Y
[2024-10-18 12:19] LABS: Appearance Urine UA CLEAR; Bilirubin Urine UA NEGATIVE (NEGATIVE); Color Urine UA YELLOW; Glucose Urine UA NEGATIVE (Negative); Ketones Urine UA NEGATIVE (NEGATIVE); Leukocyte Esterase Urine UA NEGATIVE (NEGATIVE); Nitrite Urine UA NEGATIVE (Negative); Occult Blood Urine UA NEGATIVE (Negative); Protein Urine UA TRACE (Negative); Urobilinogen Urine UA 0.2 E.U./dL (0.2)
[2024-10-18 12:25] LABS: Bacteria Urine Many (>30); RBC Urine None Seen (0-5/HPF); Urine Volume 10mL (spun); WBC Urine 0-1/HPF (0-5/HPF)
[2024-10-18 12:26] LABS: Culture Indicated Urine Cult Not Indicated; Squamous Epithelial Cell Urine 0-1 /HPF (0-5/HPF); Ur Creatinine Normal (Normal); Ur Specific Gravity Normal (Normal)
[2024-10-18 12:27] LABS: Urine Amphetamines Negative (Negative); Urine Barbiturates Negative (Negative); Urine Benzodiazepines Positive (Negative); Urine Cocaine Negative (Negative); Urine MDMA Negative (Negative); Urine Methadone Negative (Negative); Urine Methamphetamines Negative (Negative); Urine Opiates Negative (Negative); Urine Oxycodone Negative (Negative); Urine Phencyclidine Negative (Negative); Urine THC Negative (Negative); Urine Tricyclic Antidepressant Negative (Negative); Urine pH Normal (Normal)
[2024-10-18 12:39] LABS: Lactate 2HR (Lactic Acid Rflx) 3.1 mmol/L (0.7-2.1)
[2024-10-18] MEDS: cefTRIAXone 1,000 MG in SODIUM CHLORIDE 0.9% 100 ML 200 MG IV (13:18)
--- NOTE | 2024-10-18 16:33 | PM.HP.1 ---
History of Present Illness History of Present Illness Date Patient Seen: 10/18/24 Chief complaint: Falls x 2 within 24 hours/poss toe fx Narrative: the year.he patient was a 59-year-old female with history of diabetes, pancreatitis, cirrhosis from HERRING, bipolar, and hypertension. She takes lactulose on a chronic basis at 40 g t.i.d.. She presents today with increased confusion and lethargy. She lives in [place] with her . She denies recent medication noncompliance. Her workup in the ED was negative for evidence of infection including a chest x-ray and urine dip. She denies any fevers, or chills. She recently had Xifaxan added to her regimen. The patient was also on ketamine suppositories and Subutex. She was comfortable and denies headache or neurologic symptoms. She also denies any respiratory symptoms. She was slow to answer questions and it took her quite a while to remember [facility] Medical History Incontinence of urine GERD (gastroesophageal reflux disease) Benzodiazepine dependence, continuous Opiate dependence, continuous director index associated with adverse incidents Obesity (BMI 30-39.9) Herniated nucleus pulposus, L4-5 Arm pain Intractable vomiting with nausea Chronic pancreatitis Acute infection of right ear Fracture of right foot Bipolar 1 disorder Acute dehydration Acute kidney injury History of pulmonary embolism Neuropathy, diabetic Arthritis Insulin dependent diabetes mellitus Chronic pain syndrome Nonalcoholic steatohepatitis (HERRING) Anxiety Major depressive disorder Renal insufficiency Hypercholesterolemia with hypertriglyceridemia Hypertension Obstructive sleep apnea of adult Type 2 diabetes mellitus Snoring Hypersomnia Episode of syncope Surgical History H/O hysterectomy for benign disease History of cholecystectomy History of appendectomy Gastrocnemius equinus of right lower extremity Right humeral fracture Lumbar post-laminectomy syndrome Family History Father COPD (chronic obstructive pulmonary disease) Mother Hypertension Sister Fibromyalgia Social History marital status: details: rasheed Gaitan household members: spouse lives independently: Yes caregiver/support person: No occupational status: unemployed Smoking Status: Never smoker alcohol intake: current substance use type: marijuana Meds Home Medications and Allergies Home Medications Medication Instructions Recorded Confirmed Type insulin aspart U-100 100 unit/mL 10 - 25 unit SQ TIDAC ##0 09/19/17 10/18/24 History subcutaneous solution (Novolog U-100 Insulin aspart) metoprolol succinate 100 mg 100 mg PO DAILY ##0 09/19/17 10/18/24 History tablet,extended release 24 hr (Toprol XL) omega-3 acid ethyl esters 1 gram 2 cap PO BID 04/17/19 10/18/24 History capsule metformin 500 mg tablet,extended 1,000 mg PO QAM 01/06/20 10/18/24 History release 24 hr cholecalciferol (vitamin D3) 50 50 mcg PO DAILY 11/28/20 10/18/24 History mcg (2,000 unit) capsule insulin glargine 100 unit/mL 40 unit SUBCUT QAM #0 mL 11/28/20 10/18/24 History subcutaneous solution (Lantus U-100 Insulin) ketamine 100 mg sublingual narinder 300 mg sublingual 5XD 11/28/20 10/18/24 History buprenorphine 2 mg-naloxone 0.5 mg 1.5 tab sublingual DAILY 07/16/22 10/18/24 History sublingual tablet lorazepam 2 mg tablet 4 mg PO TID 07/16/22 10/18/24 History oxybutynin chloride 5 mg 5 mg PO QPM 07/16/22 10/18/24 History tablet,extended release 24 hr rosuvastatin 40 mg tablet 40 mg PO QAM 07/16/22 10/18/24 History fluoxetine 20 mg capsule 40 mg PO BID 05/12/23 10/18/24 History vlltvc-xlusgdte-nirqbdz 3 cap PO TIDWM 05/12/23 10/18/24 History 36,000-114,000-180,000 unit capsule,delay rel (Creon) ziprasidone HCl 80 mg capsule 80 mg PO BID 05/12/23 10/18/24 History zolpidem 10 mg tablet 10 mg PO BEDTIME 05/12/23 10/18/24 History estradiol 0.01% (0.1 mg/gram) 1 applic vaginal WEEKLY 03/13/24 10/18/24 History vaginal cream irbesartan 300 mg tablet 300 mg PO DAILY 03/13/24 10/18/24 History lactulose 10 gram/15 mL oral 60 ml PO TID 03/13/24 10/18/24 History solution lamotrigine 150 mg tablet 150 mg PO DAILY 03/13/24 10/18/24 History methylphenidate HCl 5 mg tablet 30 mg PO DAILY 03/13/24 10/18/24 History doxylamine succinate 25 mg tablet 100 mg PO QPM 10/18/24 10/18/24 History (Unisom (doxylamine)) famotidine 20 mg tablet 20 mg PO DAILY 10/18/24 10/18/24 History rifaximin 550 mg tablet (Xifaxan) 550 mg PO BID 10/18/24 10/18/24 History Allergies Allergy/AdvReac Type Severity Reaction Status Date / Time No Known Drug Allergies Allergy Verified 03/13/24 09:52 Review of Systems Review of Systems Narrative: All else reviewed and otherwise unremarkable except as noted in the history and physical. Exam Vital Signs (past 8 hours): - 10/18/24 09:48 10/18/24 09:51 10/18/24 09:55 Temperature 96.8 F L Pulse Rate 67 70 68 Respiratory Rate 18 Blood Pressure 107/65 Pulse Oximetry 93 93 94 Oxygen Delivery Method Room Air Oxygen Flow Rate 10/18/24 09:55 10/18/24 09:56 10/18/24 09:56 Temperature Pulse Rate 67 Respiratory Rate 16 Blood Pressure 96/60 95/60 Pulse Oximetry 95 Oxygen Delivery Method Oxygen Flow Rate 10/18/24 10:00 10/18/24 10:00 10/18/24 10:30 Temperature Pulse Rate 66 61 Respiratory Rate 12 15 Blood Pressure 92/60 Pulse Oximetry 92 93 Oxygen Delivery Method Oxygen Flow Rate 10/18/24 11:00 10/18/24 11:30 10/18/24 12:00 Temperature Pulse Rate 62 61 60 Respiratory Rate 17 14 15 Blood Pressure Pulse Oximetry 97 99 97 Oxygen Delivery Method Oxygen Flow Rate 10/18/24 12:30 10/18/24 13:00 10/18/24 13:17 Temperature Pulse Rate 59 L 59 L 62 Respiratory Rate 15 14 15 Blood Pressure Pulse Oximetry 97 96 98 Oxygen Delivery Method Oxygen Flow Rate 10/18/24 13:17 10/18/24 13:30 Temperature 97.6 F Pulse Rate 62 Respiratory Rate 16 Blood Pressure 130/70 128/81 Pulse Oximetry 99 Oxygen Delivery Method Oxygen Flow Rate 0 Oxygen Delivery Method Room Air Oxygen Flow Rate 0 Narrative Exam Narrative: NAD, alert and oriented, fluent speech, calm. Slightly slow to answer questions and to take her a while to answer the correct year after initially answering 19 something. Normocephalic skull, EOMI, anicteric sclera, symmetric pupils. Oropharynx unremarkable, no droop. Neck supple, midline trachea, no adenopathy. Lungs clear, normal rate and effort. Heart regular, no murmur gallop or rub. Abdomen is soft, non distended and non tender. Extremities are free of edema. Skin is free of rash or lesions. Joints are not swollen or deformed. Judgment appears to be abnormal. Objective ECG Impression: Normal sinus rhythm Imaging Multiple studies:: Radiologist's impression: Toe x-ray : No acute bony abnormality. 8 x 1 millimeter radiopaque foreign body projecting between the 4th and 5th metatarsal heads, suspicious for a retained needle. Head CT: No acute intracranial pathology. Cervical spine CT: No displaced fracture or traumatic subluxation. Chest x-ray: No acute cardiopulmonary abnormality is seen. Labs 10/18/24 09:53 10/18/24 09:53 Labs: Laboratory Results - last 24 hr 10/18/24 10/18/24 10/18/24 09:53 11:44 11:44 WBC 5.0 RBC 4.65 Hgb 13.3 Hct 39.3 MCV 84.6 MCH 28.6 MCHC 33.8 RDW 14.9 H Plt Count 103 L Neut % (Auto) 80.1 H Lymph % (Auto) 12.0 L [place] % (Auto) 6.3 Eos % (Auto) 1.0 L Baso % (Auto) 0.6 Neut # (Auto) 4000 Lymph # (Auto) 600 L [place] # (Auto) 300 Eos # (Auto) 100 Baso # (Auto) 0 PT 12.5 INR 1.1 APTT 37 H Sodium 136 L Potassium 3.9 Chloride 102 Carbon Dioxide 20 L BUN 16 Creatinine 0.85 Estimated GFR > 60 BUN/Creatinine Ratio 18.8 Glucose 266 H Lactate 3.3 H Calcium 9.5 Total Bilirubin 0.7 AST 127 H ALT 105 H Alkaline Phosphatase 456 H Ammonia 38 H Total Protein 7.3 Albumin 4.3 Globulin 3.0 Albumin/Globulin Ratio 1.4 Procalcitonin 0.184 TSH < 0.015 L Urine Color Yellow Urine Appearance Clear Urine pH 6.0 Normal Ur Specific [place] 1.010 Urine Protein Trace H Urine Glucose (UA) Negative Urine Ketones Negative Urine Occult Blood Negative Urine Nitrate Negative Urine Bilirubin Negative Urine Urobilinogen 0.2 Ur Leukocyte Esterase Negative Urine RBC None seen Urine WBC 0-1/hpf Ur Squamous Epith Cells 0-1 /hpf D Urine Bacteria Many (>30) H Ur Culture Indicated? Cult not indicated Vol Urine Centrifuged 10ml (spun) Salicylates < 1.0 U Opiates 300ng/mL cut Negative Ur Oxycodone Screen Negative Urine Methadone Screen Negative Acetaminophen < 10 Ur Barbiturates Screen Negative U Tricyclic Antidepress Negative Ur Phencyclidine Scrn Negative Ur Amphetamines Screen Negative U Methamphetamines Scrn Negative Ur MDMA Scrn (Ecstasy) Negative U Benzodiazepines Scrn Positive H Urine Cocaine Screen Negative U Marijuana (THC) Screen Negative Urine Specific [place] Normal Ethyl Alcohol < 10 Ur Creatinine Normal 10/18/24 12:20 WBC RBC Hgb Hct MCV MCH MCHC RDW Plt Count Neut % (Auto) Lymph % (Auto) [place] % (Auto) Eos % (Auto) Baso % (Auto) Neut # (Auto) Lymph # (Auto) [place] # (Auto) Eos # (Auto) Baso # (Auto) PT INR APTT Sodium Potassium Chloride Carbon Dioxide BUN Creatinine Estimated GFR BUN/Creatinine Ratio Glucose Lactate 3.1 H Calcium Total Bilirubin AST ALT Alkaline Phosphatase Ammonia Total Protein Albumin Globulin Albumin/Globulin Ratio Procalcitonin TSH Urine Color Urine Appearance Urine pH Ur Specific [place] Urine Protein Urine Glucose (UA) Urine Ketones Urine Occult Blood Urine Nitrate Urine Bilirubin Urine Urobilinogen Ur Leukocyte Esterase Urine RBC Urine WBC Ur Squamous Epith Cells Urine Bacteria Ur Culture Indicated? Vol Urine Centrifuged Salicylates U Opiates 300ng/mL cut Ur Oxycodone Screen Urine Methadone Screen Acetaminophen Ur Barbiturates Screen U Tricyclic Antidepress Ur Phencyclidine Scrn Ur Amphetamines Screen U Methamphetamines Scrn Ur MDMA Scrn (Ecstasy) U Benzodiazepines Scrn Urine Cocaine Screen U Marijuana (THC) Screen Urine Specific [place] Ethyl Alcohol Ur Creatinine Assessment & Plan Assessment & Plan narrative: 1. Acute hepatic encephalopathy, present on admission and active. 2. Dm 2, insulin-dependent. Present on admission and active. 3. Hypertension, present on admission and active. 4. Bipolar, present on admission and active. 5. Chronic opiate dependence, present on admission and active. 6. Chronic benzodiazepine use, present on admission and active. 7. Chronic ketamine use, present on admission and active. Plan: - Continue most site psych tonight. - Hold benzodiazepines, Subutex, and ketamine. - Monitor mental status. - Increase lactulose to 40 g q.6 hours and follow mental status and response to therapy. Anticipate 1 night in the hospital, supports observation status. She was full code, confirmed time of admission. Her proxy decision maker is her . Time-Based Coding :: 35 min spent with patient and on the chart (including review of chart, obtaining history, exam, reviewing outside data, placing orders, documenting exam and treatment plan, and counseling patient) on 10/18. Quality MIPS - Admit I confirm the patient?s Advance Care Plan is present, Code status is documented, Surrogate decision maker is in patient?s record [If Yes, STOP here]: Yes MIPS - Meds 'Current medications' to include all prescriptions, [id number] products, herbals, cannabis/cannabidiol products, and vitamin/mineral/dietary (nutritional) supplements. I have utilized all available resources to obtain, update, or review the patient?s current medications. [If Yes, STOP here]: Yes
[2024-10-18 17:30] LABS: Hemoglobin A1C% w Est Avg Glu 5.6 % (4.0-6.0)
[2024-10-18] MEDS: LACTULOSE 20 GM/30 ML SOLUTION 40 GM PO ×2 (18:00→21:11)
[2024-10-18] MEDS: OXYBUTYNIN 5 MG ER TAB PO (18:00)
[2024-10-18] MEDS: OXYCODONE IR 5 MG TABLET PO (19:40)
[2024-10-18 20:30] LABS: Lactate (Lactic Acid) 3.6 mmol/L (0.7-2.1)
[2024-10-18] MEDS: FLUoxetine 20 MG CAPSULE 40 MG PO (21:10)
[2024-10-18] MEDS: RIFAXIMIN 200 MG TABLET 500 MG PO (21:11)
[2024-10-18] MEDS: LORazepam 1 MG TABLET PO (21:12)
[2024-10-18] MEDS: INSULIN LISPRO 100 UNIT/ML 3ML VIAL SUBCUT (21:12)
[2024-10-18] MEDS: SODIUM CHLORIDE 0.9% 1,000 ML 84 ML IV (21:13)
[2024-10-18 21:53] LABS: Reflexed Lactate in 2 Hours Y
[2024-10-19] MEDS: OXYCODONE IR 5 MG TABLET PO ×3 (00:05→09:03)
[2024-10-19 00:30] LABS: Lactate (Lactic Acid) 3.1 mmol/L (0.7-2.1)
[2024-10-19 01:51] LABS: Reflexed Lactate in 2 Hours Y
[2024-10-19 02:00] VITALS: BP 145/89; PULSE 65; RESP 17; TEMP 35.7; O2SAT 99
--- NOTE | 2024-10-19 02:46 | PC.NURSE ---
Spoke to Dr. Leonard at the beginning of the shift in regards to patient lactate being elevated 3.1, V/S wnl, lactate repeated and up to 3.6, NS at 84 ml/hr started, Lactate levels to be taken every 4 hours. At midnight lactate level is 3.1. Next lactate level at 0400. Pt asking when can I take my ketamine, this nurse explained to patient that she will not be getting her ketamine tonight because when she came in she was lethargic. Patient alert and oriented X 4 but falls asleep while speaking to this nurse. Pt also has a alva catheter that this nurse offered to remove which pt decline. Pt educated on alva catheter and urinary track infections.
[2024-10-19] MEDS: LORazepam 1 MG TABLET PO (06:15)
[2024-10-19 08:00] VITALS: BP 132/78; PULSE 72; RESP 16; TEMP 36.3; O2SAT 98
[2024-10-19] MEDS: ATORVASTATIN 20 MG TABLET 80 MG PO (08:59)
[2024-10-19] MEDS: LACTULOSE 20 GM/30 ML SOLUTION 40 GM PO (09:00)
[2024-10-19] MEDS: FLUoxetine 20 MG CAPSULE 40 MG PO (09:00)
[2024-10-19] MEDS: lamoTRIgine 100 MG TABLET 150 MG PO (09:01)
[2024-10-19] MEDS: LOSARTAN 50 MG TABLET 100 MG PO (09:01)
[2024-10-19 09:02] VITALS: BP 132/78; PULSE 72
[2024-10-19] MEDS: RIFAXIMIN 200 MG TABLET 500 MG PO (09:02)
[2024-10-19] MEDS: METOPROLOL ER 50 MG TABLET 100 MG PO (09:02)
[2024-10-19] MEDS: INSULIN GLARGINE 100 UNIT/ML 3ML PEN 40 UNIT SUBCUT (09:06)
[2024-10-19] MEDS: INSULIN LISPRO 100 UNIT/ML 3ML VIAL SUBCUT (09:07)
[2024-10-19 09:32] VITALS: PULSE 70
[2024-10-19 09:53] LABS: Hemoglobin 12.6 g/dL (12.0-16.0); Mean Corpuscular HGB Conc 34.1 % (30-36); Mean Corpuscular Hemoglobin 28.5 PG (26-34); Mean Corpuscular Volume 83.7 fL (80-100); Platelet Count 93 X10^3/uL (150-400); Red Blood Cell Count 4.42 X10^6/uL (4.0-5.2); Red Cell Distribution Width 15.1 % (11.6-14.8); White Blood Cell Count 5.1 X10^3/uL (4.5-11.0)
[2024-10-19 10:06] LABS: Ammonia (NH3) 23 umol/L (9-30)
--- NOTE | 2024-10-19 11:03 | PM.DS.1 ---
History of Present Illness History of Present Illness Chief complaint: Falls x 2 within 24 hours/poss toe fx Narrative: Brenden patient was a 59-year-old female with history of diabetes, pancreatitis, cirrhosis from HERRING, bipolar, and hypertension. She takes lactulose on a chronic basis at 40 g t.i.d.. She presents today with increased confusion and lethargy. She lives in [place] with her . She denies recent medication noncompliance. Her workup in the ED was negative for evidence of infection including a chest x-ray and urine dip. She denies any fevers, or chills. She recently had Xifaxan added to her regimen. The patient was also on ketamine suppositories and Subutex. She was comfortable and denies headache or neurologic symptoms. She also denies any respiratory symptoms. She was slow to answer questions and it took her quite a while to remember. Discharge Providers Provider Date of admission: 10/18/24 13:08 Discharge Date: 10/19/24 Primary care physician: Helen Smith MD Consults: None. Discharge provider: Reg Corrigan MD Summary Hospital Course Discharge Diagnosis: 1. Acute hepatic encephalopathy, present on admission and resolved. 2. Dm 2, insulin-dependent. Present on admission and active. 3. Hypertension, present on admission and active. 4. Bipolar, present on admission and active. 5. Chronic opiate dependence, present on admission and active. 6. Chronic benzodiazepine use, present on admission and active. 7. Chronic ketamine use, present on admission and active. Hospital Course: She was admitted with a hepatic encephalopathy and her lactulose was increased to q.i.d.. She improved after about 12 hours treatment. She was at her baseline mental status in the day of discharge. Other sedating medications were also held. She was no evidence of infection. In the day of discharge she was felt to be stable for discharge and her lactulose will increase her t.i.d. to q.i.d.. Status at Discharge Cognitive/behavioral status at discharge: at baseline, oriented Functional status at discharge: uses cane/walker Overall status at discharge: patient is back to baseline Time Spent with Patient Time spent: Greater than 30 minutes Exam Vital Signs (past 8 hours): - 10/19/24 08:00 Temperature 97.3 F L Pulse Rate 72 Respiratory Rate 16 Blood Pressure 132/78 Pulse Oximetry 98 Oxygen Flow Rate 0 Oxygen Delivery Method Room Air Oxygen Flow Rate 0 Narrative Exam Narrative: NAD, alert and oriented. Fluent speech. Lungs are clear, normal rate and effort. Heart is regular, no murmur gallop or rub. Abdomen is soft, non distended. Extremities are free of edema. Objective ECG Impression: Normal sinus rhythm Imaging Multiple studies:: Radiologist's impression: Toe x-ray : No acute bony abnormality. 8 x 1 millimeter radiopaque foreign body projecting between the 4th and 5th metatarsal heads, suspicious for a retained needle. Head CT: No acute intracranial pathology. Cervical spine CT: No displaced fracture or traumatic subluxation. Chest x-ray: No acute cardiopulmonary abnormality is seen. Labs 10/19/24 09:45 10/19/24 09:45 Labs: Laboratory Results - last 24 hr 10/18/24 10/18/24 10/18/24 09:53 11:44 11:44 WBC RBC Hgb Hct MCV MCH MCHC RDW Plt Count Hemoglobin A1c 5.6 Lactate Ammonia Urine Color Yellow Urine Appearance Clear Urine pH 6.0 Normal Ur Specific [place] 1.010 Urine Protein Trace H Urine Glucose (UA) Negative Urine Ketones Negative Urine Occult Blood Negative Urine Nitrate Negative Urine Bilirubin Negative Urine Urobilinogen 0.2 Ur Leukocyte Esterase Negative Urine RBC None seen Urine WBC 0-1/hpf Ur Squamous Epith Cells 0-1 /hpf D Urine Bacteria Many (>30) H Ur Culture Indicated? Cult not indicated Vol Urine Centrifuged 10ml (spun) U Opiates 300ng/mL cut Negative Ur Oxycodone Screen Negative Urine Methadone Screen Negative Ur Barbiturates Screen Negative U Tricyclic Antidepress Negative Ur Phencyclidine Scrn Negative Ur Amphetamines Screen Negative U Methamphetamines Scrn Negative Ur MDMA Scrn (Ecstasy) Negative U Benzodiazepines Scrn Positive H Urine Cocaine Screen Negative U Marijuana (THC) Screen Negative Urine Specific [place] Normal Ur Creatinine Normal 10/18/24 10/18/24 10/19/24 12:20 20:12 00:05 WBC RBC Hgb Hct MCV MCH MCHC RDW Plt Count Hemoglobin A1c Lactate 3.1 H 3.6 H 3.1 H Ammonia Urine Color Urine Appearance Urine pH Ur Specific [place] Urine Protein Urine Glucose (UA) Urine Ketones Urine Occult Blood Urine Nitrate Urine Bilirubin Urine Urobilinogen Ur Leukocyte Esterase Urine RBC Urine WBC Ur Squamous Epith Cells Urine Bacteria Ur Culture Indicated? Vol Urine Centrifuged U Opiates 300ng/mL cut Ur Oxycodone Screen Urine Methadone Screen Ur Barbiturates Screen U Tricyclic Antidepress Ur Phencyclidine Scrn Ur Amphetamines Screen U Methamphetamines Scrn Ur MDMA Scrn (Ecstasy) U Benzodiazepines Scrn Urine Cocaine Screen U Marijuana (THC) Screen Urine Specific [place] Ur Creatinine 10/19/24 10/19/24 10/19/24 04:25 09:25 09:45 WBC 5.1 RBC 4.42 Hgb 12.6 Hct 37.0 MCV 83.7 MCH 28.5 MCHC 34.1 RDW 15.1 H Plt Count 93 L Hemoglobin A1c Lactate 2.0 Ammonia 23 Urine Color Urine Appearance Urine pH Ur Specific [place] Urine Protein Urine Glucose (UA) Urine Ketones Urine Occult Blood Urine Nitrate Urine Bilirubin Urine Urobilinogen Ur Leukocyte Esterase Urine RBC Urine WBC Ur Squamous Epith Cells Urine Bacteria Ur Culture Indicated? 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 Obesity (BMI 30-39.9) Herniated nucleus pulposus, L4-5 Arm pain Intractable vomiting with nausea Chronic pancreatitis Acute infection of right ear Fracture of right foot Bipolar 1 disorder Acute dehydration Acute kidney injury History of pulmonary embolism Neuropathy, diabetic Arthritis Insulin dependent diabetes mellitus Chronic pain syndrome Nonalcoholic steatohepatitis (HERRING) Anxiety Major depressive disorder Renal insufficiency Hypercholesterolemia with hypertriglyceridemia Hypertension Obstructive sleep apnea of adult Type 2 diabetes mellitus Snoring Hypersomnia Episode of syncope Surgical History H/O hysterectomy for benign disease History of cholecystectomy History of appendectomy Gastrocnemius equinus of right lower extremity Right humeral fracture Lumbar post-laminectomy syndrome Family History Father COPD (chronic obstructive pulmonary disease) Mother Hypertension Sister Fibromyalgia Social History marital status: details: rasheed Gaitan household members: spouse lives independently: Yes caregiver/support person: No occupational status: unemployed Smoking Status: Never smoker alcohol intake: current substance use type: marijuana Discharge Assessment & Plan Assessment and Plan Assessment: 1. Acute hepatic encephalopathy, present on admission and resolved. 2. Dm 2, insulin-dependent. Present on admission and active. 3. Hypertension, present on admission and active. 4. Bipolar, present on admission and active. 5. Chronic opiate dependence, present on admission and active. 6. Chronic benzodiazepine use, present on admission and active. 7. Chronic ketamine use, present on admission and active. Discharge Plan Discharge Plan Patient Disposition: Home Provider Discharge Comment: Mental status normal, stable for discharge home. Discharge orders & Medications Prescriptions: New lactulose 10 gram/15 mL Solution 40 gm PO QID Qty: 1000 2RF Continued methylphenidate HCl 5 mg tablet 30 mg PO DAILY irbesartan 300 mg tablet 300 mg PO DAILY lamotrigine 150 mg tablet 150 mg PO DAILY estradiol 0.01 % (0.1 mg/gram) cream 1 applic vaginal WEEKLY metoprolol succinate [Toprol XL] 100 MG tablet extended release 24 hr 100 mg PO DAILY Qty: 0 Rx Instructions: 8am insulin aspart U-100 [Novolog U-100 Insulin aspart] 100 UNIT/1 ML solution 10 - 25 unit SQ TIDAC Qty: 0 Rx Instructions: sliding scale Lantus U-100 Insulin 100 unit/mL solution 40 unit SUBCUT QAM Qty: 0 ketamine 100 mg narinder 300 mg sublingual BID MDD 16 capsules Rx Instructions: uses rectally cholecalciferol (vitamin D3) 50 mcg (2,000 unit) capsule 50 mcg PO DAILY omega-3 acid ethyl esters 1 gram Capsule 2 cap PO BID Rx Instructions: 8am, 5pm buprenorphine-naloxone 2-0.5 mg tablet, sublingual 1.5 tab SUBLINGUAL DAILY oxybutynin chloride 5 mg tablet extended release 24hr 5 mg PO QPM Rx Instructions: 5pm rosuvastatin 40 mg tablet 40 mg PO QAM lorazepam 2 MG tablet 4 mg PO TID Rx Instructions: 7am, 12pm, 5pm metformin 500 mg tablet extended release 24 hr 1,000 mg PO QAM ziprasidone HCl 80 mg capsule 80 mg PO BID fluoxetine 20 mg capsule 40 mg PO BID zolpidem 10 mg Tablet 10 mg PO BEDTIME Rx Instructions: 193 Creon 36,000-114,000- 180,000 unit capsule,delayed release(DR/EC) 3 cap PO TIDWM Xifaxan 550 mg tablet 550 mg PO BID famotidine 20 mg Tablet 20 mg PO DAILY Unisom (doxylamine) 25 mg Tablet 100 mg PO QPM Discontinued lactulose 10 gram/15 mL solution 60 ml PO TID Follow up/Referrals: Helen Smith MD [Primary Care Provider] - Discharge Health Status Multidrug resistant organism: MRSA Diet/Activity/Treatments Activity: As tolerated. Visit Report/Discharge Packet Instructions: DI for Hepatic Encephalopathy Stand Alone Forms: Patient Portal/API Discharge Data Primary Care Provider: Helen Smith Attending Provider: Reg Corrigan Admit Date/Time: 10/18/24 13:08
[2024-10-19 12:00] LABS: Alanine Aminotransferase 127 IU/L (<35); Albumin Globulin Ratio 1.4 (1.0-2.8); Alkaline Phosphatase 494 U/L (38-126); Aspartate Aminotransferase 193 IU/L (14-36); BUN Creatinine Ratio 16.4 (6-22); Bilirubin Total 0.7 mg/dL (0.2-1.3); Blood Urea Nitrogen 12 mg/dL (7-17); Calcium 8.9 mg/dL (8.4-10.2); Carbon Dioxide 19 mmol/L (22-32); Chloride 102 mmol/L (98-107); Estimated Glomerular Filt Rate > 60 mL/min (>60); Globulin 2.8 g/dL (1.7-4.1); Glucose 297 mg/dL (80-110); HEMOLYSIS 17 (0-50); Potassium 3.9 mmol/L (3.4-5.1); Sodium 134 mmol/L (137-145); Total Protein 6.8 g/dL (6.3-8.2)
--- NOTE | 2024-10-19 12:29 | PC.NURSE ---
Discharge Note Patient A&O and back to baseline, VSS, RA, no complaints of pain/discomfort. Patient agreeable to discharge plan. Discharge packet reviewed with patient, all questions/concerns addressed. PIV discontinued. Patient able to dress self and pack all belongings. Patient home medication retrieved from pharmacy and given to patient. Patient taken down via wheelchair to POV.
--- NOTE | 2024-10-19 15:58 | CM.DANOTE ---
Patient is a 59 y/o F with PMH of HERRING, chronic pain, BPD1, chronic pancreatitis, and other complications here with hepatic encephalopathy. Per MD, pt's labs returned normal and pt medically stable to d/c home today with outpt f/u and no identified barriers to discharge. PCP Helen Gipson and self pay MANAGER OF MEDICAL reviewed EMR. Pt lives in [place] with spouse Arnie. Per RN report, pt mentation cleared up significantly, now A/O and independent in room and able to complete her ADLs independently and get dressed. Discharge instructions provided and no concerns noted and taken to spouse POV. MANAGER OF MEDICAL met bedside briefly and introduced self and role. Pt confirms having all the DME she needs, walkers/canes/wheelchair. Pt states her spouse helps her manage and assists as needed at home. Deny any CM needs at this time. Her preference is to discharge home today and does not anticipate any needs. Pt has long hx of Ketamine use and plans to continue utilizing this medication at discharge. MIGDALIA Umanzor
== END 2024-10-19 12:00 | disposition home or self-care (01) ==
LOC: ED 13:08 → AC 13:08
PROVIDERS: Internal Medicine; Pharmacist Pharmacist Clinician (PhC)/ Clinical Pharmacy Specialist; Admitting Provider Hospitalist; Emergency Provider Emergency Medicine; Family Provider Internal Medicine; PCP Internal Medicine; Referring Provider Emergency Medicine; Visit Provider Hospitalist
DX: K76.82 Hepatic encephalopathy (principal); K75.81 Nonalcoholic steatohepatitis (NASH); K74.69 Other cirrhosis of liver; E11.9 Type 2 diabetes mellitus without complications; F31.9 Bipolar disorder, unspecified; I10 Essential (primary) hypertension; W01.0XXA Fall on same level from slipping, tripping and stumbling without subsequent striking against object, initial encounter; Z91.81 History of falling; Z79.84 Long term (current) use of oral hypoglycemic drugs; Z79.4 Long term (current) use of insulin; F11.20 Opioid dependence, uncomplicated; F13.20 Sedative, hypnotic or anxiolytic dependence, uncomplicated
CPT/HCPCS: 36415; 70450; 71045; 72125; 73660; 80053; 80305; 80320; 80329; 81001; 82140; 82962; 83036; 83605; 84145; 84443; 85025; 85027; 85610; 85730; 87040; 93005; 96361; 96365; 96372; 99284; G0378; G0480; J0696; J1815

== ENCOUNTER → 2024-11-13 12:53 | Outpatient (CLI) | payer OTHER, SELFPAY ==
[2024-10-18 13:58] VITALS: BMI 28.2
--- NOTE | 2024-11-13 12:58 | DI.CT.S_ITS ---
PROCEDURE: CT IVP A/P W/WO INDICATIONS: HEMATURIA. TECHNIQUE: Optional 5 mm thick noncontrast images acquired from the diaphragm to the symphysis pubis. After the administration of intravenous contrast, 5 mm thick images acquired from the diaphragm to the symphysis pubis after a 10-minute delay. 2 mm thick coronal and sagittal reformats were then performed of the kidneys and ureters. For radiation dose reduction, the following was used: automated exposure control, adjustment of mA and/or kV according to patient size. COMPARISON: [facility], MR, MR ABDOMEN LIVER PROTOCOL, 08/07/2023, 9:24. [facility], US, US ABDOMEN LIMITED, 09/18/2024, 10:14. FINDINGS: Image quality: Diagnostic. Kidneys and Ureters: Both kidneys are normal in size, without hydronephrosis or nephrolithiasis. No perinephric fat stranding. There is normal bilateral renal enhancement. Renal calyces appear normal in morphology when filled with contrast. Opacified portions of both ureters demonstrate normal caliber Bladder: Bladder wall thickness is normal. No calcified bladder stones. OTHER: Lower chest: Unremarkable. Liver: There is a large in growing multifocal hepatic mass lesion in this patient with prior CT and MR documentation of cirrhotic change and probable primary hepatic malignancy, such as hepatoma. This mass is somewhat difficult to clearly visualize due to isodense enhancement with adjacent cirrhotic more normal liver parenchyma. It is best visualized on the pre contrast imaging as multifocal areas of slightly increased radiodensity with a Hounsfield measurement of 61. The adjacent more normal fatty infiltrated hepatic parenchyma has a radiodensity of 48 Hounsfield units. This involves a rounded mass involving the upper right hepatic lobe and multiple sites more inferiorly within the right and left hepatic lobes. The best measurement of this mass is currently 12.5 cm AP and 10.5 cm transverse versus 8.5 x 7.4 cm on prior MR imaging 08/07/23. Compressive influence by this mass causes adjacent peripheral slight biliary distension within the more normal cirrhotic liver parenchyma. Gallbladder: No radiopaque gallstones or wall thickening. Biliary ducts: No biliary dilation. Pancreas: No ductal dilation. Spleen: Size is within normal limits. Adrenal Glands: No adrenal nodules. Stomach and Bowel: Normal colonic caliber, without significant wall thickening. Peritoneum: No abnormal intraperitoneal fluid. No free air. Ventral Wall: No hernia. Abdominal Nodes: No retroperitoneal or mesenteric adenopathy by size criteria. Vessels: Aorta and inferior vena cava are normal in size. PELVIS: Pelvic Organs: Unremarkable. Pelvic Nodes: No enlarged lymph nodes. Miscellaneous: No inguinal hernias are seen. Bones: No aggressive osseous abnormality. IMPRESSION: No nephrolithiasis or filling defects within the opacified renal collecting system or ureters. Source of hematuria is not seen. Further enlargement of a large multifocal hepatic mass lesion within multiple sites of the liver parenchyma with enlargement from approximately 8 cm in July of last year to 10.5 x 12.5 cm currently. Mild intrahepatic compressive biliary distension is associated along the periphery of the mass.. Dictated by: Crow Angulo M.D. on 11/13/2024 at 16:21 Approved by: Crow Angulo M.D. on 11/13/2024 at 16:30
== END ==
PROVIDERS: Family Provider Internal Medicine; PCP Internal Medicine; Referring Provider Nurse Practitioner; Visit Provider Nurse Practitioner
DX: K76.9 Liver disease, unspecified (principal); R31.9 Hematuria, unspecified
CPT/HCPCS: 74178; Q9967

== ENCOUNTER → 2024-11-17 17:09 | Outpatient (CLI) | payer OTHER, SELFPAY ==
[2024-10-18 13:58] VITALS: BMI 28.2
--- NOTE | 2024-11-17 17:10 | DI.MRI.S_ITS ---
PROCEDURE: MR ABDOMEN LIVER PROTOCOL INDICATIONS: CIRRHOSIS,QUESTIONALBLE LIVER MASS - EOVIST TECHNIQUE: Coronal HASTE, axial 2D FLASH in- and [id number]; axial breath-hold T2 FSE. Dynamic axial VIBE during the administration of contrast; post-contrast coronal VIBE or 2D FLASH with fat saturation from the hepatic dome to the iliac crests. Optional diffusion weighted imaging and ADC may be performed. COMPARISON: [facility], CT, CT IVP A/P W/WO, 11/13/2024, 14:02. FINDINGS: Image quality: Diagnostic. Lung bases: Unremarkable. Liver: Cirrhotic liver morphology. Macro lobulated liver contour. Patent portal vein. Hypertrophy of the left hepatic lobe. There is peripheral T2 hyperintense fibrosis along the periphery of the liver, most prominent in the right hepatic lobe. This corresponds to the region of hypoattenuation in segment 5/6 of the liver on comparison CT. No observations of probably or definitely HCC. Gallbladder: Absent. Biliary ducts: Intrahepatic biliary dilation, with ductal irregularity. Pancreas: Chronic pancreatitis, with ductal irregularity and side branch dilation. Spleen: Size is enlarged. Adrenal Glands: No adrenal nodules. Kidneys and Ureters: No hydronephrosis. No solid mass. No complex renal cystic lesion which requires follow up. Stomach and Bowel: Normal colonic caliber, without significant wall thickening. Peritoneum: No abnormal intraperitoneal fluid. No free air. Ventral Wall: No hernia. Abdominal Nodes: No retroperitoneal or mesenteric adenopathy by size criteria. Vessels: Aorta and inferior vena cava are normal in size. Bones: No aggressive osseous abnormality. IMPRESSION: Cirrhotic liver morphology, with peripheral ductal dilation and ductal irregularity. 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 Evidence of portal hypertension with splenomegaly. Patent portal vein. No observations of probably or definitely HCC. There is peripheral fibrotic change, corresponding to the region of hypoattenuation on comparison CT. Consider routine HCC screening with MRI. Chronic pancreatitis. Dictated by: Jamie Cristobal M.D. on 11/18/2024 at 9:10 Approved by: Jamie Cristobal M.D. on 11/18/2024 at 10:14
== END ==
PROVIDERS: Family Provider Internal Medicine; PCP Internal Medicine; Referring Provider Internal Medicine Gastroenterology; Visit Provider Internal Medicine Gastroenterology
DX: K74.60 Unspecified cirrhosis of liver (principal); K86.1 Other chronic pancreatitis; K76.6 Portal hypertension; K83.8 Other specified diseases of biliary tract; R16.1 Splenomegaly, not elsewhere classified; Z90.49 Acquired absence of other specified parts of digestive tract
CPT/HCPCS: 74183; A9579

== ENCOUNTER 2025-01-05 19:24 | Emergency (ER) | payer OTHER, SELFPAY ==
[2024-10-18 13:58] VITALS: BMI 28.2
[2025-01-05] VITALS (14 sets, daily range): BP systolic 87–126; BP diastolic 54–78; PULSE 62–75; RESP 13–18; TEMP 36.7; O2SAT 92–97; BMI 27.6
--- NOTE | 2025-01-05 19:38 | DI.CT.S_ITS ---
PROCEDURE: CT HEAD/BRAIN WO CON INDICATIONS: fell, hematoma, confused TECHNIQUE: Noncontrast 4.5 mm thick angled axial sections acquired from the foramen magnum to the vertex, with coronal and sagittal reformats. For radiation dose reduction, the following was used: automated exposure control, adjustment of mA and/or kV according to patient size. COMPARISON: [facility], CT, CT HEAD/BRAIN WO CON, 10/18/2024, 10:09. FINDINGS: Image quality: Diagnostic. CSF spaces: Basal cisterns are patent. No extra-axial fluid collections. The ventricles are symmetric in size and shape. Brain: No intracranial bleeds or mass effect. There is cerebral volume loss, with resultant ventricular and sulcal prominence. There are periventricular and deep white matter chronic small vessel ischemic changes. There is intracranial internal carotid artery atherosclerosis. Skull and face: Right frontal scalp/supraorbital hematoma and swelling is seen. Calvarium and visualized facial bones appear intact, without suspicious lesions. Sinuses: Visualized sinuses and mastoids are clear. IMPRESSION: 1. No acute intracranial pathology. 2. Right frontal/supraorbital scalp hematoma and swelling . No acute skull fracture. Bilateral orbital kay are intact. Dictated by: Santy Wallace M.D. on 01/05/2025 at 20:12 Approved by: Santy Wallace M.D. on 01/05/2025 at 20:13
--- NOTE | 2025-01-05 19:38 | DI.CT.S_ITS ---
PROCEDURE: CT CERVICAL SPINE WO CON INDICATIONS: fall, confused TECHNIQUE: Noncontrast 3 mm thick sections acquired from the skull base to the T4 level. Sagittal and coronal reformats were then constructed. For radiation dose reduction, the following was used: automated exposure control, adjustment of mA and/or kV according to patient size. COMPARISON: [facility], CT, CT CERVICAL SPINE WO CON, 10/18/2024, 10:09. FINDINGS: Image quality: Excellent. Bones: No fractures or dislocations. Loss of disc height, degenerative endplate changes and bilateral facet hypertrophic changes are noted throughout cervical spine. Visualized superior ribs are intact. Soft tissues: Prevertebral soft tissues are normal in thickness. No paravertebral hematomas. No apical pneumothoraces. IMPRESSION: 1. No displaced fracture or traumatic subluxation. 2. Multilevel spondylitic changes throughout cervical spine. Dictated by: Santy Wallace M.D. on 01/05/2025 at 20:13 Approved by: Santy Wallace M.D. on 01/05/2025 at 20:14
--- NOTE | 2025-01-05 23:17 | PC.NURSE ---
Provider Jef made aware of patient blood pressure. Verbal order for 1000ml of NS.
[2025-01-05] MEDS: SODIUM CHLORIDE 0.9% 1,000 ML 1000 ML IV (23:18)
[2025-01-05] MEDS: OXYCODONE IR 5 MG TABLET 10 MG PO (23:24)
[2025-01-05 23:39] LABS: Add Manual Diff / Slide Review NO; Basophils Absolute Auto 0 /uL (0-100); Basophils Percent Auto 0.2 % (0-2); Eosinophils Absolute Auto 100 /uL (0-450); Eosinophils Percent Auto 0.7 % (2-4); Hemoglobin 13.4 g/dL (12.0-16.0); Lymphocytes Absolute Auto 1100 /uL (1100-4500); Lymphocytes Percent Auto 14.6 % (25-40); Mean Corpuscular HGB Conc 33.4 % (30-36); Mean Corpuscular Hemoglobin 28.2 PG (26-34); Mean Corpuscular Volume 84.5 fL (80-100); Monocytes Absolute Auto 500 /uL (0-900); Monocytes Percent Auto 7.3 % (3-14); Neutrophils Absolute Auto 5700 /uL (1500-7000); Neutrophils Percent Auto 77.2 % (50-75); Platelet Count 119 X10^3/uL (150-400); Red Blood Cell Count 4.74 X10^6/uL (4.0-5.2); Red Cell Distribution Width 14.3 % (11.6-14.8); White Blood Cell Count 7.4 X10^3/uL (4.5-11.0)
[2025-01-05 23:42] LABS: Alanine Aminotransferase 102 IU/L (<35); Albumin 4.4 g/dL (3.5-5.0); Albumin Globulin Ratio 1.6 (1.0-2.8); Alkaline Phosphatase 416 U/L (38-126); Aspartate Aminotransferase 172 IU/L (14-36); Bilirubin Total 0.5 mg/dL (0.2-1.3); Blood Urea Nitrogen 17 mg/dL (7-17); Calcium 9.8 mg/dL (8.4-10.2); Carbon Dioxide 20 mmol/L (22-32); Chloride 104 mmol/L (98-107); Estimated Glomerular Filt Rate > 60 mL/min (>60); Globulin 2.8 g/dL (1.7-4.1); Glucose 107 mg/dL (70-99); HEMOLYSIS < 15 (0-50); Potassium 3.6 mmol/L (3.4-5.1); Sodium 138 mmol/L (137-145); Total Protein 7.2 g/dL (6.3-8.2)
[2025-01-06] VITALS (25 sets, daily range): BP systolic 87–152; BP diastolic 53–107; PULSE 59–108; RESP 12–26; O2SAT 95–99
[2025-01-06] MEDS: SODIUM CHLORIDE 0.9% 1,000 ML 1000 ML IV (01:25)
--- NOTE | 2025-01-06 01:29 | PC.NURSE ---
Prior to BS check pts monitoring system stated her BS was 54. Pt given 8 oz [place] [employer], kushal crackers and granola bars.
--- NOTE | 2025-01-06 03:01 | ED.FALL ---
HPI - Fall General Chief Complaint: Fall Stated Complaint: altered mental status, fell Time Seen by Provider: 01/05/25 21:37 Source: patient and family Mode of arrival: Wheelchair History of Present Illness HPI Narrative: 59-year-old woman with a history of diabetes, pancreatitis HERRING causing cirrhosis, bipolar, hypertension has a history of chronic pain has been on large doses of narcotics is now worked herself down to a quarter of a 2 mg buprenorphine film daily. She was feeling her usual self, in the shower had a mechanical fall slipped and hit her head. She was able to stand up is complaining also of some pain in her right hip. She is able to walk there is a large abrasion over her right hip. No recent fever, cough, chills. She does not describe associated chest pain, palpitations, dyspnea. Clearly feels that it was a mechanical fall Related Data Home Medications ?Medication ?Instructions ?Recorded ?Confirmed insulin aspart U-100 100 unit/mL 10 - 25 unit SQ TIDAC ##0 09/19/17 10/18/24 subcutaneous solution (Novolog U-100 Insulin aspart) metoprolol succinate 100 mg 100 mg PO DAILY ##0 09/19/17 10/18/24 tablet,extended release 24 hr (Toprol XL) omega-3 acid ethyl esters 1 gram 2 cap PO BID 04/17/19 10/18/24 capsule metformin 500 mg tablet,extended 1,000 mg PO QAM 01/06/20 10/18/24 release 24 hr cholecalciferol (vitamin D3) 50 50 mcg PO DAILY 11/28/20 10/18/24 mcg (2,000 unit) capsule insulin glargine 100 unit/mL 40 unit SUBCUT QAM #0 mL 11/28/20 10/18/24 subcutaneous solution (Lantus U-100 Insulin) ketamine 100 mg sublingual narinder 300 mg sublingual BID 11/28/20 10/18/24 buprenorphine 2 mg-naloxone 0.5 mg 1.5 tab sublingual DAILY 07/16/22 10/18/24 sublingual tablet lorazepam 2 mg tablet 4 mg PO TID 07/16/22 10/18/24 oxybutynin chloride 5 mg 5 mg PO QPM 07/16/22 10/18/24 tablet,extended release 24 hr rosuvastatin 40 mg tablet 40 mg PO QAM 07/16/22 10/18/24 fluoxetine 20 mg capsule 40 mg PO BID 05/12/23 10/18/24 [id number] 3 cap PO TIDWM 05/12/23 10/18/24 36,000-114,000-180,000 unit capsule,delay rel (Creon) ziprasidone HCl 80 mg capsule 80 mg PO BID 05/12/23 10/18/24 zolpidem 10 mg tablet 10 mg PO BEDTIME 05/12/23 10/18/24 estradiol 0.01% (0.1 mg/gram) 1 applic vaginal WEEKLY 03/13/24 10/18/24 vaginal cream irbesartan 300 mg tablet 300 mg PO DAILY 03/13/24 10/18/24 lamotrigine 150 mg tablet 150 mg PO DAILY 03/13/24 10/18/24 methylphenidate HCl 5 mg tablet 30 mg PO DAILY 03/13/24 10/18/24 doxylamine succinate 25 mg tablet 100 mg PO QPM 10/18/24 10/18/24 (Unisom (doxylamine)) famotidine 20 mg tablet 20 mg PO DAILY 10/18/24 10/18/24 rifaximin 550 mg tablet (Xifaxan) 550 mg PO BID 10/18/24 10/18/24 Previous Rx's ?Medication ?Instructions ?Recorded lactulose 10 gram/15 mL oral 40 gm PO QID #1,000 mL 10/19/24 solution Allergies Allergy/AdvReac Type Severity Reaction Status Date / Time No Known Drug Allergies Allergy Verified 03/13/24 09:52 Review of Systems Review of Systems Narrative: Pertinent positive and negative findings as per HPI Patient History Medical History Incontinence of urine GERD (gastroesophageal reflux disease) Benzodiazepine dependence, continuous Opiate dependence, continuous 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 Obesity (BMI 30-39.9) Herniated nucleus pulposus, L4-5 Arm pain Intractable vomiting with nausea Chronic pancreatitis Acute infection of right ear Fracture of right foot Bipolar 1 disorder Acute dehydration Acute kidney injury History of pulmonary embolism Neuropathy, diabetic Arthritis Insulin dependent diabetes mellitus Chronic pain syndrome Nonalcoholic steatohepatitis (HERRING) Anxiety Major depressive disorder Renal insufficiency Hypercholesterolemia with hypertriglyceridemia Hypertension Obstructive sleep apnea of adult Type 2 diabetes mellitus Snoring Hypersomnia Episode of syncope Surgical History H/O hysterectomy for benign disease History of cholecystectomy History of appendectomy Gastrocnemius equinus of right lower extremity Right humeral fracture Lumbar post-laminectomy syndrome Family History Father COPD (chronic obstructive pulmonary disease) Mother Hypertension Sister Fibromyalgia Social History marital status: details: rasheed Gaitan household members: spouse lives independently: Yes caregiver/support person: No occupational status: unemployed alcohol intake: current substance use type: marijuana alcohol intake frequency: holidays/special occasions only Exam Initial Vital Signs Initial Vital Signs: Vital Signs Temperature 98.0 F 01/05/25 19:29 Pulse Rate 75 01/05/25 19:29 Respiratory Rate 16 01/05/25 19:29 Blood Pressure 117/72 01/05/25 19:29 Pulse Oximetry 96 01/05/25 19:29 Oxygen Delivery Method Room Air 01/05/25 19:29 General: Appears slightly uncomfortable but alert and interactive. HEENT: Moist mucous membranes, normal sclera with reactive pupils, she has minor contusion to the upper right portion of her forehead Neck: Some tenderness into the left trapezius muscle with no tenderness midline cervical spine Respiratory: Lungs are clear to auscultation, no wheezing no rales no rhonchi. Full and symmetrical air movement Cardiac: Regular rate and rhythm no murmurs no bruits Abdomen: Soft, nontender, no rebound or guarding, no flank pain. No abrasions or contusions to the abdomen or flanks Skin: Pale but otherwise Warm and dry, she has an abrasion contusion to the lateral aspect of the left thigh without underlying significant hematoma Neurologic: Grossly neurologically intact with no obvious asymmetries or abnormalities Extremities: No bony injuries or complaints Psych: Cooperative, appropriate insight and affect Course Orders Ordered: ED Orders 01/05/25 19:38 CT cervical spine wo con Stat CT head/brain wo con Stat 01/05/25 23:11 Complete Blood Count AUTO DIFF Stat Comprehensive Metabolic Panel Stat Discontinued Medications Sodium Chloride (Normal Saline 0.9%) 500 mls @ 1,000 mls/hr IV BOLUS ONE Stop: 01/05/25 23:42 Last Admin: 01/05/25 23:16 Dose: Not Given Documented By: MIMI Sodium Chloride (Normal Saline 0.9%) 1,000 mls @ 1,000 mls/hr IV BOLUS ONE Stop: 01/06/25 00:15 Last Infusion: 01/06/25 00:15 Dose: Infused Documented By: Admin: 01/05/25 23:18 Dose: 1,000 mls/hr Documented By: MIMI Sodium Chloride (Normal Saline 0.9%) 1,000 mls @ 1,000 mls/hr IV BOLUS ONE Stop: 01/06/25 02:00 Last Infusion: 01/06/25 02:25 Dose: Infused Documented By: Admin: 01/06/25 01:25 Dose: 1,000 mls/hr Documented By: Oxycodone HCl (Oxycodone Ir 5 Mg Tablet) 10 mg PO NOW ONE Stop: 01/05/25 23:19 Last Admin: 01/05/25 23:24 Dose: 10 mg Documented By: MIMI Vital Signs Vital signs: Vital Signs - 8 hr 01/05/25 19:29 01/05/25 21:38 01/05/25 22:00 Temperature 98.0 F Pulse Rate 75 67 64 Respiratory Rate 16 16 Blood Pressure 117/72 Pulse Oximetry 96 95 92 Oxygen Delivery Method Room Air 01/05/25 22:00 01/05/25 22:10 01/05/25 22:10 Temperature Pulse Rate 64 Respiratory Rate 15 Blood Pressure 96/59 L 102/59 L Pulse Oximetry 93 Oxygen Delivery Method 01/05/25 22:30 01/05/25 22:30 01/05/25 22:41 Temperature Pulse Rate 63 68 Respiratory Rate 16 17 Blood Pressure 93/62 Pulse Oximetry 92 97 Oxygen Delivery Method 01/05/25 22:41 01/05/25 23:00 01/05/25 23:01 Temperature Pulse Rate 65 65 Respiratory Rate 14 14 Blood Pressure 126/78 Pulse Oximetry 93 93 Oxygen Delivery Method 01/05/25 23:02 01/05/25 23:02 01/05/25 23:10 Temperature Pulse Rate 67 65 Respiratory Rate 18 17 Blood Pressure 87/55 L Pulse Oximetry 95 92 Oxygen Delivery Method 01/05/25 23:10 01/05/25 23:20 01/05/25 23:20 Temperature Pulse Rate 63 Respiratory Rate 15 Blood Pressure 104/69 104/65 Pulse Oximetry 95 Oxygen Delivery Method 01/05/25 23:30 01/05/25 23:30 01/05/25 23:40 Temperature Pulse Rate 63 62 Respiratory Rate 14 13 Blood Pressure 105/60 Pulse Oximetry 95 97 Oxygen Delivery Method Room Air 01/05/25 23:40 01/05/25 23:51 01/05/25 23:51 Temperature Pulse Rate 65 Respiratory Rate 17 Blood Pressure 94/54 L 120/58 L Pulse Oximetry 96 Oxygen Delivery Method 01/06/25 00:00 01/06/25 00:01 01/06/25 00:01 Temperature Pulse Rate 65 65 Respiratory Rate 15 13 Blood Pressure 89/53 L Pulse Oximetry 96 96 Oxygen Delivery Method 01/06/25 00:05 01/06/25 00:05 01/06/25 00:10 Temperature Pulse Rate 65 Respiratory Rate 15 Blood Pressure 109/65 92/55 L Pulse Oximetry 97 Oxygen Delivery Method 01/06/25 00:10 01/06/25 00:15 01/06/25 00:15 Temperature Pulse Rate 65 66 Respiratory Rate 17 21 Blood Pressure 97/61 Pulse Oximetry 97 97 Oxygen Delivery Method Room Air 01/06/25 00:20 01/06/25 00:20 01/06/25 00:30 Temperature Pulse Rate 65 65 Respiratory Rate 17 14 Blood Pressure 91/57 L Pulse Oximetry 97 96 Oxygen Delivery Method 01/06/25 00:30 01/06/25 00:40 01/06/25 00:40 Temperature Pulse Rate 63 Respiratory Rate 15 Blood Pressure 93/60 87/59 L Pulse Oximetry 96 Oxygen Delivery Method 01/06/25 00:50 01/06/25 00:50 01/06/25 01:00 Temperature Pulse Rate 63 Respiratory Rate 13 Blood Pressure 93/57 L 98/60 Pulse Oximetry 96 Oxygen Delivery Method Room Air 01/06/25 01:00 01/06/25 01:11 01/06/25 01:11 Temperature Pulse Rate 63 64 Respiratory Rate 12 14 Blood Pressure 115/66 Pulse Oximetry 98 95 Oxygen Delivery Method 01/06/25 01:20 01/06/25 01:20 01/06/25 01:30 Temperature Pulse Rate 59 L 66 Respiratory Rate 12 17 Blood Pressure 102/63 Pulse Oximetry 95 96 Oxygen Delivery Method 01/06/25 01:31 01/06/25 01:31 01/06/25 01:41 Temperature Pulse Rate 66 67 Respiratory Rate 17 15 Blood Pressure 115/76 Pulse Oximetry 97 98 Oxygen Delivery Method Room Air 01/06/25 01:41 01/06/25 01:51 01/06/25 01:51 Temperature Pulse Rate 66 Respiratory Rate 16 Blood Pressure 123/94 H 126/66 Pulse Oximetry 97 Oxygen Delivery Method 01/06/25 02:00 01/06/25 02:01 01/06/25 02:01 Temperature Pulse Rate 71 71 Respiratory Rate 25 H 26 H Blood Pressure 142/107 H Pulse Oximetry Oxygen Delivery Method 01/06/25 02:11 01/06/25 02:11 01/06/25 02:20 Temperature Pulse Rate 66 66 Respiratory Rate 14 15 Blood Pressure 110/55 L Pulse Oximetry 97 96 Oxygen Delivery Method 01/06/25 02:20 01/06/25 02:30 01/06/25 02:37 Temperature Pulse Rate 108 H 71 Respiratory Rate 18 Blood Pressure 100/61 Pulse Oximetry 99 Oxygen Delivery Method Room Air 01/06/25 02:37 Temperature Pulse Rate Respiratory Rate Blood Pressure 121/97 H Pulse Oximetry Oxygen Delivery Method MDM - Fall Lab Data 01/05/25 23:11 01/05/25 23:11 Labs: Lab Results 01/05/25 Range/Units 23:11 WBC 7.4 (4.5-11.0) X10^3/uL RBC 4.74 (4.0-5.2) X10^6/uL Hgb 13.4 (12.0-16.0) g/dL Hct 40.0 (36-46) % MCV 84.5 (80-100) fL MCH 28.2 (26-34) PG MCHC 33.4 (30-36) % RDW 14.3 (11.6-14.8) % Plt Count 119 L (150-400) X10^3/uL Neut % (Auto) 77.2 H (50-75) % Lymph % (Auto) 14.6 L (25-40) % [place] % (Auto) 7.3 (3-14) % Eos % (Auto) 0.7 L (2-4) % Baso % (Auto) 0.2 (0-2) % Neut # (Auto) 5700 (5208-1885) /uL Lymph # (Auto) 1100 (8080-9111) /uL [place] # (Auto) 500 (0-900) /uL Eos # (Auto) 100 (0-450) /uL Baso # (Auto) 0 (0-100) /uL Sodium 138 (137-145) mmol/L Potassium 3.6 (3.4-5.1) mmol/L Chloride 104 (98-107) mmol/L Carbon Dioxide 20 L (22-32) mmol/L BUN 17 (7-17) mg/dL Creatinine 0.85 (0.52-1.04) mg/dL Estimated GFR > 60 (>60) mL/min BUN/Creatinine Ratio 20.0 (6-22) Glucose 107 H (70-99) mg/dL Calcium 9.8 (8.4-10.2) mg/dL Total Bilirubin 0.5 (0.2-1.3) mg/dL AST 172 H (14-36) IU/L ALT 102 H (<35) IU/L Alkaline Phosphatase 416 H (38-126) U/L Total Protein 7.2 (6.3-8.2) g/dL Albumin 4.4 (3.5-5.0) g/dL Globulin 2.8 (1.7-4.1) g/dL Albumin/Globulin Ratio 1.6 (1.0-2.8) Point of Care Testing Glucose POC 94 MDM Narrative Medical decision making narrative: CC: Fall in shower Complicating co-morbidities: History of diabetes, cirrhosis, bipolar hypertension Data collected from: patient Medical records reviewed: Discharge summary from hospitalization 10/19/2024 for acute hepatic encephalopathy Differential considered: Syncope to cause the fall with differential for syncope, trauma related to the fall including intracranial hemorrhage, fractures, internal bleeding Exam documented above, pertinent findings include: Tender contusion over the right forehead. Trapezius tenderness on the left side, abdomen is soft. Abrasion contusion to the left side of the thigh. She is able to walk without diff Lab Test results independently reviewed as above. Pertinent findings: CBC is unremarkable Chemistries are reassuring. Her AST ALT and alkaline phosphatase are actually lower than when more recently tested Imaging studies independently reviewed: CT scan of the head is unremarkable. No orbital fractures, hematoma superficially appreciated on the right forehead CT scan of the cervical spine shows no acute fracture Treatments: Patient was given 2 L of fluid, 10 mg of oxycodone for pain control Discussion: 59-year-old woman with mechanical fall in the shower. No intracranial hemorrhage she has a bruise to her forehead and the left outer thigh. No evidence of occult bleeding, infection, fractures or intracranial hemorrhage. She is on 0.5 mg of buprenorphine and asked for additional pain medication stated that oxycodone was typically adequate but would need a slightly larger dose to overcome the buprenorphine. She was given 10 mg and that made her sleep soundly and cause some mild hypotension. As it is wearing off blood pressure is returning to normal and pain is better controlled. Currently no indication for hospitalization, additional workup or further evaluation. Did review with her anticipated course of resolution including increasing aches and pains from all of her sore spots over the next 48 hours. She is safe for Discharge Plan Departure Patient Disposition: Home Clinical Impression: Fall in shower Abrasion of forehead Qualifiers: Encounter type: initial encounter Qualified Code(s): S00.81XA - Abrasion of other part of head, initial encounter Contusion of left thigh Qualifiers: Encounter type: initial encounter Qualified Code(s): S70.12XA - Contusion of left thigh, initial encounter Activity Restrictions/Additional Instructions: Thank you for coming in today With your fall in the shower, you were going to have a big bruise over your forehead and likely a black eye is at continues to heal. You are thigh is going to develop and impressive bruise where the scrape currently is. Your blood work was reassuring does not suggest any internal bleeding and does not suggest any other reason why he may have fallen beyond simply tripping as you had described There was no bleeding into your head, no skull fractures, no neck fractures You are going to find you have you increasing pain in multiple areas after your fall this evening. Typically things get worse in the 1st 48 hours after an injury. You can use your usual home medications for pain control. Being up and around and moving actually does help you heal a bit faster even though it seems painful at the time If you find that you are getting worse or develop any new symptoms, please feel free to return to the emergency department for further evaluation. Prescriptions: No Action methylphenidate HCl 5 mg tablet 30 mg PO DAILY irbesartan 300 mg tablet 300 mg PO DAILY lamotrigine 150 mg tablet 150 mg PO DAILY estradiol 0.01 % (0.1 mg/gram) cream 1 applic vaginal WEEKLY metoprolol succinate [Toprol XL] 100 MG tablet extended release 24 hr 100 mg PO DAILY Qty: 0 Rx Instructions: 8am insulin aspart U-100 [Novolog U-100 Insulin aspart] 100 UNIT/1 ML solution 10 - 25 unit SQ TIDAC Qty: 0 Rx Instructions: sliding scale Lantus U-100 Insulin 100 unit/mL solution 40 unit SUBCUT QAM Qty: 0 ketamine 100 mg narinder 300 mg sublingual BID MDD 16 capsules Rx Instructions: uses rectally cholecalciferol (vitamin D3) 50 mcg (2,000 unit) capsule 50 mcg PO DAILY omega-3 acid ethyl esters 1 gram Capsule 2 cap PO BID Rx Instructions: 8am, 5pm buprenorphine-naloxone 2-0.5 mg tablet, sublingual 1.5 tab SUBLINGUAL DAILY oxybutynin chloride 5 mg tablet extended release 24hr 5 mg PO QPM Rx Instructions: 5pm rosuvastatin 40 mg tablet 40 mg PO QAM lorazepam 2 MG tablet 4 mg PO TID Rx Instructions: 7am, 12pm, 5pm metformin 500 mg tablet extended release 24 hr 1,000 mg PO QAM ziprasidone HCl 80 mg capsule 80 mg PO BID fluoxetine 20 mg capsule 40 mg PO BID zolpidem 10 mg Tablet 10 mg PO BEDTIME Rx Instructions: 1930 Creon 36,000-114,000- 180,000 unit capsule,delayed release(DR/EC) 3 cap PO TIDWM Xifaxan 550 mg tablet 550 mg PO BID famotidine 20 mg Tablet 20 mg PO DAILY Unisom (doxylamine) 25 mg Tablet 100 mg PO QPM lactulose 10 gram/15 mL Solution 40 gm PO QID Qty: 1000 2RF Referrals: Helen Smith MD [Primary Care Provider, Internal Medicine] Stand Alone Forms: Patient Portal/API
== END 2025-01-06 03:22 | disposition home or self-care (01) ==
PROVIDERS: Emergency Provider Emergency Medicine; Family Provider Internal Medicine; PCP Internal Medicine
DX: M79.641 Pain in right hand (principal); S00.81XA Abrasion of other part of head, initial encounter; S70.12XA Contusion of left thigh, initial encounter; W18.2XXA Fall in (into) shower or empty bathtub, initial encounter
CPT/HCPCS: 36415; 70450; 72125; 80053; 82962; 85025; 96360; 96361; 99284

== ENCOUNTER → 2025-01-06 16:35 | Outpatient (CLI) | payer OTHER, SELFPAY ==
[2024-10-18 13:58] VITALS: BMI 28.2
--- NOTE | 2025-01-06 16:38 | DI.RAD.S_ITS ---
PROCEDURE: XR KNEE RT 3V INDICATIONS: ACUTE PAIN OF RIGHT KNEE TECHNIQUE: 3 views of the knee were acquired. COMPARISON: [facility], , XR KNEE RT 3V, 10/04/2020, 18:31. FINDINGS: Bones: No fractures or dislocations. No suspicious bony lesions. Medial joint space narrowing with marginal osteophytes Soft tissues: Large joint effusion. No suspicious soft tissue calcifications. IMPRESSION: Large joint effusion associated with medial compartmental arthritic changes Approved by: Osmany Bonilla M.D. on 01/07/2025 at 18:49
[2025-01-06 17:06] LABS: Ammonia (NH3) 32 umol/L (9-30)
== END ==
LOC: LAB 16:37
PROVIDERS: Family Provider Internal Medicine; PCP Internal Medicine; Referring Provider Internal Medicine; Visit Provider Internal Medicine
DX: K76.82 Hepatic encephalopathy (principal); M25.461 Effusion, right knee
CPT/HCPCS: 36415; 73562; 82140

== ENCOUNTER → 2025-02-17 15:04 | Outpatient (CLI) | payer OTHER, SELFPAY ==
[2025-02-12 18:19] VITALS: BMI 26.4
[2025-02-17 15:41] LABS: Hemoglobin A1C% w Est Avg Glu 6.3 % (4.0-6.0)
[2025-02-17 15:46] LABS: Ammonia (NH3) 43 umol/L (9-30)
[2025-02-17 15:47] LABS: Blood Urea Nitrogen 15 mg/dL (7-17); Calcium 9.0 mg/dL (8.4-10.2); Carbon Dioxide 16 mmol/L (22-32); Chloride 109 mmol/L (98-107); Estimated Glomerular Filt Rate > 60 mL/min (>60); Glucose 79 mg/dL (70-99); HEMOLYSIS < 15 (0-50); Potassium 3.1 mmol/L (3.4-5.1); Sodium 138 mmol/L (137-145)
== END ==
PROVIDERS: Family Provider Internal Medicine; PCP Internal Medicine; Referring Provider Internal Medicine; Visit Provider Internal Medicine
DX: E11.42 Type 2 diabetes mellitus with diabetic polyneuropathy (principal); Z79.4 Long term (current) use of insulin
CPT/HCPCS: 36415; 80048; 82140; 83036

== ENCOUNTER → 2025-05-06 14:49 | Outpatient (CLI) | payer OTHER, SELFPAY ==
[2024-10-18 13:58] VITALS: BMI 28.2
[2025-02-12 18:19] VITALS: BMI 26.4
--- NOTE | 2025-05-06 14:51 | DI.ECHO.S_ITS ---
:Name: GREGORY TATUM Study Date: 05/06/2025 Height: 74 in : [id number] ReadingLocation: Weight: 210 lb : : Gender: Female BSA: 2.2 m2 : :: 1965 Age: 59 yrs BP: 132/87 mmHg: :Reason For Study: Syncope : : Performed By: Henrique Granda : :Referring: LEVAR ENG : + + Interpretation Summary - The left ventricular contractility is normal. Estimated ejection fraction is greater than 60% with no segmental wall motion abnormalities. Moderate concentric LVH. Normal diastolic function. - The right ventricular contractility is normal. - All cardiac chambers are of normal size. - No significant valvular abnormalities. - No obvious intracardiac shunts. - No obvious intracardiac masses nor thrombi. - No hemodynamically significant pericardial effusion. - Low right-sided filling pressures. Conclusion: Normal biventricular function with moderate concentric left ventricular hypertrophy and no significant valvular abnormalities. Procedure: A two-dimensional transthoracic echocardiogram with color flow and Doppler was performed. The study quality was technically adequate. There is no prior echocardiogram noted for this patient. The patient was in normal sinus rhythm during the exam. Left Ventricle: The left ventricle is normal in size. Left ventricular wall thickness is moderately increased. Left ventricular systolic function is normal. The ejection fraction is estimated to be 60-65%. There are no focal wall motion abnormalities. Normal diastolic function. Right Ventricle: The right ventricle is normal in size and function. Atria: The left atrial size is normal. Right atrial size is normal. There is no Doppler evidence for an interatrial shunt. Mitral Valve: Thickening of the posterior mitral valve leaflet with reduced mobility. There is no mitral valve stenosis. There is trace mitral regurgitation. Aortic Valve: The aortic valve is trileaflet. The aortic valve opens well. There is no aortic valve stenosis. No aortic regurgitation is present. Tricuspid Valve: The tricuspid valve leaflets are thin and pliable. There is trace tricuspid regurgitation. Pulmonic Valve: The pulmonic valve is not well seen, but is grossly normal. There is trace pulmonic regurgitation. Great Vessels: The aortic root is normal size. The dimensions of the ascending aorta are normal. The aortic arch could not be visualized. The pulmonary artery is normal size. The IVC is of normal diameter and collapses greater than 50% with a sniff. This suggests a low right atrial pressure of 3 mm Hg. Pericardium/ Pleura There is no pericardial effusion. MMode/2D Measurements & Calculations LVIDd: 4.1 cm LVOT diam: 2.1 cm LVIDs: 2.9 cm Ao root diam: 3.8 cm IVSd: 1.4 cm asc Aorta Diam: 2.9 cm LVPWd: 1.5 cm LV steele. diameter/BSA (cm/m^2): 1.9 LV sys. diameter/BSA (cm/m^2): 1.3 FS: 28.9 % LA A2 area: 22.9 cm2 RA long axis: 5.0 cm LA A4 area: 17.4 cm2 RA area: 9.8 cm2 LA length (vol): 5.6 cm RA vol: 16.2 ml LA vol: 60.7 ml RA : 7.3 ml/m2 LA vol index: 27.4 ml/m2 RVD1 (basal): 2.5 cm IVC diam: 1.2 cm RVD2 (mid): 2.5 cm TAPSE: 1.7 cm Doppler Measurements & Calculations Ao V2 max: 89.8 cm/sec LVOT Max Dg: 84.3 cm/sec Ao V2 mean: 65.5 cm/sec LV V1 max P.8 mmHg Ao V2 VTI: 15.7 cm LV V1 VTI: 15.2 cm Ao max P.2 mmHg Ao mean P.9 mmHg AGUSTIN(I,D): 3.4 cm2 MV E max dg: 51.7 cm/sec AGUSTIN(V,D): 3.2 cm2 MV A max dg: 76.2 cm/sec AGUSTIN indexed to BSA (cm^2/m^2): 1.5 MV E/A: 0.68 sev ratio: 0.97 Med Peak E' Dg: 8.0 cm/sec E/E' med: 6.4 Lat Peak E' Dg: 12.0 cm/sec E/E' lat: 4.3 E/e' average: 5.4 MV dec time: 0.29 sec PA V2 max: 76.1 cm/sec PA V2 mean: 57.7 cm/sec PA mean P.4 mmHg PA pr(Accel): 43.0 mmHg SV(LVOT): 52.6 ml
== END ==
PROVIDERS: Family Provider Internal Medicine; PCP Internal Medicine; Referring Provider Internal Medicine; Visit Provider Internal Medicine
DX: R55 Syncope and collapse (principal)
CPT/HCPCS: 93306

== ENCOUNTER → 2025-05-12 13:15 | Outpatient (CLI) | payer OTHER, SELFPAY ==
[2025-02-12 18:19] VITALS: BMI 26.4
--- NOTE | 2025-05-12 13:17 | DI.MRI.S_ITS ---
PROCEDURE: MR ABDOMEN LIVER PROTOCOL INDICATIONS: PSC; cirrhosis of liver TECHNIQUE: Coronal HASTE, axial 2D FLASH in- and [id number]; axial breath-hold T2 FSE. Dynamic axial VIBE during the administration of contrast; post-contrast coronal VIBE or 2D FLASH with fat saturation from the hepatic dome to the iliac crests. Optional diffusion weighted imaging and ADC may be performed. COMPARISON: [facility], CT, CT CHEST ABD PEL WO CON, 02/12/2025, 15:42. [facility], MR, MR ABDOMEN LIVER PROTOCOL, 11/17/2024, 17:35. FINDINGS: Image quality: Diagnostic Lower chest: Lung bases appear unremarkable. Liver: Similar macro lobulated liver contour with peripheral predominant fibrotic bands and hyperplastic nodules centrally. Diffuse irregular intrahepatic ductal dilation, most obvious at the peripheries. No focal diffusion restricting mass or hypervascular lesion. Gallbladder and biliary system: CBD is overall nondilated. Cholecystectomy clips Pancreas: There is atrophy and calcifications throughout the pancreatic parenchyma. Suspect 1.5 cm cystic lesion is present at the head as before. Thin septations are seen. No enhancing soft tissue nodule. Spleen: Splenomegaly at 16 cm AP dimension Adrenals: No discrete nodules Kidneys: No solid mass or hydronephrosis Vessels and lymph nodes: Prominent retroperitoneal and periportal lymph nodes again seen, nonspecific possibly reactive. No abdominal aortic aneurysm. Portal venous varices are seen. Bowel and peritoneum: No bowel obstruction. No drainable abscess or ascites Body wall: Unremarkable Bones: No aggressive appearing osseous abnormality. Degenerative osseous changes. IMPRESSION: Similar cirrhotic liver. Suspect hyperplastic and regenerative nodules seen centrally, with more fibrosis seen peripherally, associated with dilated intrahepatic bile ducts. No focally suspicious enhancing or diffusion restricting liver lesion. Recommend continued HCC and CAC surveillance imaging. Splenomegaly. Sequelae of chronic pancreatitis. Cystic lesions in the pancreas again seen, largest measuring 1.5 cm at the head, either small cystic neoplasms or pseudocysts. Close attention on follow-up suggested. Other findings above. Dictated by: Artie Donovan M.D. on 05/12/2025 at 15:07 Approved by: Artie Donovan M.D. on 05/12/2025 at 15:15
== END ==
LOC: MRI 13:16
PROVIDERS: Family Provider Internal Medicine; PCP Internal Medicine; Referring Provider Internal Medicine Transplant Hepatology; Visit Provider Internal Medicine Transplant Hepatology
DX: K74.60 Unspecified cirrhosis of liver (principal); K83.01 Primary sclerosing cholangitis; R16.1 Splenomegaly, not elsewhere classified; K86.1 Other chronic pancreatitis; K86.89 Other specified diseases of pancreas; Z90.49 Acquired absence of other specified parts of digestive tract
CPT/HCPCS: 74183; A9579